=== PATIENT | male | born 1965 | race African-American/Black ===

== ENCOUNTER 2017-08-09 18:05 | Inpatient (IN) | payer OTHER ==
[2017-08-09 20:45] VITALS: BMI 34.4
--- NOTE | 2017-08-09 23:14 | HP ---
Admission [facility] Chief Complaint: i want to go to rehab Allergies/Adverse Reactions: Allergies Allergy/AdvReac Type Severity Reaction Status Date / Time influenza virus vaccine ts Allergy Intermediate Swelling Verified 11/26/15 13:05 [From Fluarix] pneumococcal vaccine Allergy Mild Swelling Verified 11/26/15 13:05 [Pneumococcal Vaccine] History of Present Illness: 52 years old male with long history of alcohol nicotine dependence has hypertension diabetes ii gerd hyperlipidemia and depression is admitted to rehab Exam Limitations: No Limitations - Ebola screening Have you traveled outside of the country in the last 21 days: No Have you had contact with anyone from an Ebola affected area: No Have you been sick,other than usual withdrawal symptoms: No Do you have a fever: No - Review of Systems Constitutional: Weight Stable EENT: reports: Other (dry eye) Respiratory: reports: Other (sleep apena dislike machine) Cardiac: reports: No Symptoms Reported GI: reports: Indigestion : reports: No Symptoms Reported Musculoskeletal: reports: Gout (elbows), Joint Pain (knees), Other (fingers) Integumentary: reports: Other (right 5th finger) Neuro: reports: No Symptoms reported Endocrine: reports: No Symptoms Reported Psychiatric: reports: Judgement Intact, Orientated x3, Depressed Other Systems: Reviewed and Negative Patient History - Patient Medical History Hx Anemia: No Hx Asthma: No Hx Chronic Obstructive Pulmonary Disease (COPD): No Hx Cancer: No Hx Cardiac Disorders: No Hx Congestive Heart Failure: No Hx Hypertension: Yes (non complaints with meds.) Hx Hypercholesterolemia: Yes Hx Pacemaker: No Hx Seizures: No Hx Dementia: No Hx Diabetes: Yes (Type II) Hx Gastrointestinal Disorders: Yes (Acid reflex) Hx Liver Disease: No Hx Genitourinary Disorders: No Hx Sexually Transmitted Disorders: No Hx Renal Disease (ESRD): No Hx Thyroid Disease: No Hx Human Immunodeficiency Virus (HIV): No Hx Hepatitis C: No Hx Depression: Yes Hx Suicide Attempt: No Hx Bipolar Disorder: No Hx Schizophrenia: No - Patient Surgical History Past Surgical History: No Hx Neurologic Surgery: No Hx Cataract Extraction: No Hx Cardiac Surgery: No Hx Lung Surgery: No Hx Breast Surgery: No Hx Breast Biopsy: No Hx Abdominal Surgery: No Hx Appendectomy: No Hx Cholecystectomy: No Hx Genitourinary Surgery: No Hx Orthopedic Surgery: No - PPD History Previous Implant?: Yes Documented Results: Negative w/o proof Implanted On Prior [facility] Admission?: Yes Date: 06/12/15 Results: 0 mm PPD to be Administered?: Yes - Smoking Cessation Smoking history: Current every day smoker Have you smoked in the past 12 months: No Aproximately how many cigarettes per day: 6 Cigars Per Day: 0 Hx Chewing Tobacco Use: No Initiated information on smoking cessation: Yes 'Breaking Loose' booklet given: 08/09/17 - Substance & Tx. History Hx Alcohol Use: Yes Hx Substance Use: No Substance Use Type: Alcohol Hx Substance Use Treatment: Yes (07/2017 [facility]) - Substances Abused Alcohol Route: Oral Frequency: Daily Amount used: vodka 1pint + 24oz beer x 24 Age of first use: 14 Date of Last Use: 08/04/17 Family Disease History - Family Disease History Family Disease History: Other: Father (alcohol,), Mother (), Brother (alcohol) Admission Physical Exam BHS - Vital Signs Vital Signs: Vital Signs - 24 hr 08/09/17 20:42 Temperature 98.1 F Pulse Rate 92 H Respiratory 18 Rate Blood Pressure 140/100 - Physical General Appearance: Yes: No Apparent Distress, Appropriately Dressed, Obese HEENTM: Yes: Hearing grossly Normal, Normal ENT Inspection, Normocephalic, Normal Voice Respiratory: Yes: Chest Non-Tender, Lungs Clear, Normal Breath Sounds, No Respiratory Distress, No Accessory Muscle Use Neck: Yes: Supple, Trachea in good position Breast: Yes: Breasts Symetrical Cardiology: Yes: Regular Rhythm, S1, S2, Tachycardia Abdominal: Yes: Normal Bowel Sounds, Non Tender, Soft Genitourinary: Yes: Within Normal Limits Back: Yes: Normal Inspection Musculoskeletal: Yes: full range of Motion, Gait Steady, Muscle Pain (knees) Extremities: Yes: Normal Range of Motion, Non-Tender, Swelling (knees fingers elbows) 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: Fully Oriented, Alert, Motor Strength 5/5 (move slowly), Normal Response, Depressed Affect Integumentary: Yes: Warm Lymphatic: Yes: Within Normal Limits - Diagnostic (1) Hyperlipidemia Current Visit: Yes Status: Chronic Qualifiers: Hyperlipidemia type: pure hypercholesterolemia Qualified Code(s): E78.00 - Pure hypercholesterolemia, unspecified; E78.0 - Pure hypercholesterolemia (2) Dry eyes, bilateral Current Visit: Yes Status: Chronic (3) Alcohol dependence with uncomplicated withdrawal Current Visit: Yes Status: Acute (4) DM (diabetes mellitus), type 2 Current Visit: Yes Status: Chronic Qualifiers: Diabetes mellitus complication status: without complication Diabetes mellitus senior care insulin use: without terminal gauger use Qualified Code(s): E11.9 - Type 2 diabetes mellitus without complications (5) Essential hypertension Current Visit: Yes Status: Chronic (6) GERD (gastroesophageal reflux disease) Current Visit: Yes Status: Chronic Qualifiers: Esophagitis presence: without esophagitis Qualified Code(s): K21.9 - Gastro -esophageal reflux disease without esophagitis (7) Gouty arthritis Current Visit: Yes Status: Chronic (8) Nicotine dependence Current Visit: Yes Status: Acute Qualifiers: Nicotine product type: cigarettes Substance use status: in withdrawal Qualified Code(s): F17.213 - Nicotine dependence, cigarettes, with withdrawal Cleared for Admission [facility] - Detox or Rehab [facility] Level of Care: Observation Bed Detox Regimen/Protocol: Not Applicable Claeared for Rehab Admission: Yes [facility] Breath Alcohol Content Breath Alcohol Content: 0 Urine Drug Screen - Results Drug Screen Negative: No Urine Drug Screen Results: BZO-Benzodiazepines Inpatient Rehab Admission - Initial Determination Are CD services needed?: Yes Free of communicable disease: Yes Not in need of hospitalization: Yes - Rehab Admission Criteria Previous failed treatment: Yes Poor recovery environment: Yes Comorbidities: Yes Lacks judgement: No Patient is meeting Inpatient Rehab admission criteria:: Yes
[2017-08-09] MEDS ORDERED: P-EPHED 60MG/TRIPROLIDI 2.5MG TABLET PO PRN (23:24)
[2017-08-09] MEDS ORDERED: guaiFENesin/D-METHORPHAN HB 10 ML UNIT-DOSE CUPS PO PRN (23:24)
[2017-08-09] MEDS ORDERED: LOPERAMIDE HCL 2 MG CAPSULE PO PRN (23:24)
[2017-08-09] MEDS ORDERED: MAG HYDROX/AL HYDROX/SIMETH 30 ML UNIT-DOSE CUP PO PRN (23:24)
[2017-08-09] MEDS ORDERED: NICOTINE POLACRILEX 2 MG GUM BC PRN (23:24)
[2017-08-09] MEDS ORDERED: MAGNESIUM HYDROX 2400MG/30ML ORAL SUSPENSION 30 ML CUP PO PRN (23:24)
[2017-08-09] MEDS ORDERED: MAGNESIUM CITRATE 300 ML BOTTLE PO PRN (23:24)
[2017-08-09] MEDS ORDERED: MENTHOL/PHENOL 1 EACH UD MM PRN (23:24)
[2017-08-09] MEDS ORDERED: COLLOIDAL OATMEAL 1 BAR EACH TP PRN (23:31)
[2017-08-10] MEDS ORDERED: diphenhydrAMINE HCL 25 MG CAPSULE (FP) PO ONE (01:30)
[2017-08-10] MEDS: NAPROXEN 500 MG TABLET (FP) PO PRN ×2 (01:38→10:07)
[2017-08-10 02:54] LABS: URINE APPEARANCE CLEAR; URINE BILIRUBIN NEGATIVE (NEGATIVE); URINE BLOOD NEGATIVE (NEGATIVE); URINE COLOR LTYELLOW; URINE GLUCOSE (UA) NEGATIVE (NEGATIVE); URINE KETONE NEGATIVE (NEGATIVE); URINE NITRITE NEGATIVE (NEGATIVE); URINE PROTEIN NEGATIVE (NEGATIVE); URINE UROBILINOGEN NEGATIVE mg/dL (0.2-1.0)
[2017-08-10] MEDS: ACETAMINOPHEN 325 MG TABLET (FP) PO PRN ×3 (06:15→21:45)
[2017-08-10] MEDS: INSULIN SLIDING SCALE (NOVOLOG) 1 VIAL SQ SCH ×2 (07:10→16:30)
[2017-08-10] MEDS: metFORMIN HCL 500 MG TABLET (FP) PO SCH ×2 (07:10→16:59)
--- NOTE | 2017-08-10 09:19 | HP ---
Psychiatrist Admission - Data Date of interview: 08/10/17 Admission source: [facility] Identifying data: This is one of the multiple admissions to inpatient rehabilitation for this 52 years old single AA male resides alone,supported by [facility]. Medical History: Significant for HTN,Morbid obesity,Anemia. Psychiatric History: Patient reports first contact with psychiatrist since 1986 after admission to psychiatric unit in [facility] due to depressed mood, anxiety.Denies suicidal attempts.Reports 3-4 more psychiatric admissions..Currently he obtains his psychotropic medications from his PCP: Zoloft 150 mg po daily,Seroquel 300 mg po hs. Physical/Sexual Abuse/Trauma History: denies Vital Signs: Vital Signs - 24 hr 08/09/17 08/10/17 08/10/17 20:42 00:30 03:30 Temperature 98.1 F 98.4 F Pulse Rate 92 H 95 H Respiratory 18 20 20 Rate Blood Pressure 140/100 147/86 08/10/17 06:51 Temperature 97.9 F Pulse Rate 84 Respiratory 20 Rate Blood Pressure 145/88 Allergies/Adverse Reactions: Allergies Allergy/AdvReac Type Severity Reaction Status Date / Time influenza virus vaccine ts Allergy Intermediate Swelling Verified 11/26/15 13:05 2012- [From Fluarix] pneumococcal vaccine Allergy Mild Swelling Verified 11/26/15 13:05 [Pneumococcal Vaccine] Date of last physical exam: 09/08/17 Concur with the findings of this exam: Yes - Substance Abuse/Tx History Hx Alcohol Use: Yes (reports drinking since 14 yo ,2 pints of vodka daily) Hx Substance Use: No Substance Use Type: Alcohol Hx Substance Use Treatment: Yes (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) Mental Status Exam - Mental Status Exam Alert and Oriented to: Time, Place, Person Cognitive Function: Grossly Intact Patient Appearance: Unkempt Mood: Anxious Affect: Appropriate, Mood Congruent Patient Behavior: Appropriate, Cooperative Speech Pattern: Clear Voice Loudness: Normal Thought Process: Goal Oriented Thought Disorder: Not Present Hallucinations: Denies Suicidal Ideation: Denies Homicidal Ideation: Denies Insight/Judgement: Fair Sleep: Fair Appetite: Good Muscle strength/Tone: Normal Gait/Station: Normal Psychiatric Findings - Problem List ([place] 1, 2,3) (1) Nicotine dependence Current Visit: Yes Status: Chronic Qualifiers: Nicotine product type: cigarettes Substance use status: in withdrawal Qualified Code(s): F17.213 - Nicotine dependence, cigarettes, with withdrawal (2) DM (diabetes mellitus), type 2 Current Visit: Yes Status: Chronic Qualifiers: Diabetes mellitus complication status: without complication Diabetes mellitus 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 insulin use: without fdc use Qualified Code(s): E11.9 - Type 2 diabetes mellitus without complications (3) Essential hypertension Current Visit: Yes Status: Chronic (4) GERD (gastroesophageal reflux disease) Current Visit: Yes Status: Chronic Qualifiers: Esophagitis presence: without esophagitis Qualified Code(s): K21.9 - Gastro -esophageal reflux disease without esophagitis (5) Gouty arthritis Current Visit: Yes Status: Chronic (6) Hyperlipidemia Current Visit: Yes Status: Chronic Qualifiers: Hyperlipidemia type: pure hypercholesterolemia Qualified Code(s): E78.00 - Pure hypercholesterolemia, unspecified; E78.0 - Pure hypercholesterolemia (7) Alcohol dependence Current Visit: Yes Status: Acute (8) Drug-induced mood disorder Current Visit: Yes Status: Chronic - Initial Treatment Plan Initial Treatment Plan: Continue current medications as per plan.Will monitor progress.
[2017-08-10] MEDS: ARTIFICIAL TEARS (POLYVINYL ALCOHOL 1.4%) OPTH DROPS OU SCH ×4 (10:02→21:47)
[2017-08-10] MEDS: PRENATAL VITAMINS W/ FOLIC ACID TABLET (FP) PO SCH (10:03)
[2017-08-10] MEDS: METOPROLOL SUCCINATE 100 MG TAB.SR.24H (FP) PO SCH (10:03)
[2017-08-10] MEDS: COLCHICINE 0.6 MG TABLET (FP) PO SCH ×2 (10:03→21:47)
[2017-08-10] MEDS: ASPIRIN 325 MG TABLET PO SCH (10:03)
[2017-08-10] MEDS: RANITIDINE HCL 150 MG TABLET (FP) PO SCH ×2 (10:03→21:44)
[2017-08-10] MEDS: NICOTINE 14 MG/24 HOURS TOPICAL PATCH TD SCH (10:04)
[2017-08-10] MEDS: LISINOPRIL 5 MG TABLET (FP) PO SCH (10:04)
--- NOTE | 2017-08-10 10:08 | EKG ---
Test Reason : Blood Pressure : / mmHG Vent. Rate : 079 BPM Atrial Rate : 079 BPM P-R Int : 176 ms QRS Dur : 074 ms QT Int : 400 ms P-R-T Axes : 045 015 016 degrees QTc Int : 458 ms NORMAL SINUS RHYTHM MINIMAL VOLTAGE CRITERIA FOR LVH, MAY BE NORMAL VARIANT NONSPECIFIC T WAVE ABNORMALITY ABNORMAL ECG NO PREVIOUS ECGS AVAILABLE Confirmed by MALLORY CARPENTER MD ([id number]) on 08/10/2017 10:08:18 AM Referred By: Confirmed By:MALLORY CARPENTER MD
[2017-08-10 10:19] LABS: URINE LEUK ESTERASE Negative (NEGATIVE)
[2017-08-10] MEDS: SERTRALINE HCL 50 MG TABLET (FP) PO SCH (10:32)
[2017-08-10] MEDS: hydrOXYzine PAMOATE 50 MG CAPSULE (FP) PO PRN ×2 (10:33→21:46)
[2017-08-10 13:23] LABS: MCH 29.7 pg (25.7-33.7); MCHC 32.3 g/dl (32.0-35.9); MEAN CELL VOLUME 91.9 fl (80-96); MEAN PLT VOLUME 11.4 fl (7.5-11.1); PLATELET COUNT 131 K/MM3 (134-434); RDW 15.7 % (11.9-15.9)
[2017-08-10 13:38] LABS: ALBUMIN 3.9 g/dl (3.4-5.0); ANION GAP 6 (8-16); CALCIUM 9.3 mg/dL (8.5-10.1); CO2 29 mmol/L (21-32); GLUCOSE,RANDOM 104 mg/dL (74-106)
[2017-08-10 13:41] LABS: ALK PHOS 68 U/L (45-117); BILIRUBIN,TOTAL 0.4 mg/dL (0.2-1.0); CREATININE 1.2 mg/dL (0.7-1.3); SGOT/AST 27 U/L (15-37); SGPT/ALT 34 U/L (12-78); TOT PROT 7.3 g/dl (6.4-8.2)
[2017-08-10] MEDS: QUEtiapine FUMARATE 300 MG TABLET PO SCH (21:44)
[2017-08-10] MEDS: THIAMINE HCL 100 MG TABLET (FP) PO SCH (21:44)
[2017-08-10] MEDS: ATORVASTATIN CA 20 MG TABLET (FP) PO SCH (21:44)
[2017-08-10] MEDS: MINERAL OIL/PETROLAT/WATER TOPICAL CREAM 113 GM JAR TP SCH (21:47)
[2017-08-11] MEDS: metFORMIN HCL 500 MG TABLET (FP) PO SCH ×2 (06:44→16:18)
[2017-08-11] MEDS: ACETAMINOPHEN 325 MG TABLET (FP) PO PRN ×3 (06:45→22:03)
[2017-08-11] MEDS: hydrOXYzine PAMOATE 50 MG CAPSULE (FP) PO PRN (06:45)
[2017-08-11] MEDS: INSULIN SLIDING SCALE (NOVOLOG) 1 VIAL SQ SCH ×2 (08:06→16:32)
[2017-08-11] MEDS: NICOTINE 14 MG/24 HOURS TOPICAL PATCH TD SCH (09:30)
[2017-08-11] MEDS: ARTIFICIAL TEARS (POLYVINYL ALCOHOL 1.4%) OPTH DROPS OU SCH ×4 (09:30→22:05)
[2017-08-11] MEDS: PRENATAL VITAMINS W/ FOLIC ACID TABLET (FP) PO SCH (09:31)
[2017-08-11] MEDS: LISINOPRIL 5 MG TABLET (FP) PO SCH (09:31)
[2017-08-11] MEDS: SERTRALINE HCL 50 MG TABLET (FP) PO SCH (09:31)
[2017-08-11] MEDS: COLCHICINE 0.6 MG TABLET (FP) PO SCH ×2 (09:31→22:02)
[2017-08-11] MEDS: METOPROLOL SUCCINATE 100 MG TAB.SR.24H (FP) PO SCH (09:32)
[2017-08-11] MEDS: RANITIDINE HCL 150 MG TABLET (FP) PO SCH ×2 (09:32→22:05)
[2017-08-11] MEDS: NAPROXEN 500 MG TABLET (FP) PO PRN (09:33)
[2017-08-11] MEDS: ASPIRIN 325 MG TABLET PO SCH (10:55)
[2017-08-11] MEDS: THIAMINE HCL 100 MG TABLET (FP) PO SCH (22:01)
[2017-08-11] MEDS: ATORVASTATIN CA 20 MG TABLET (FP) PO SCH (22:02)
[2017-08-11] MEDS: QUEtiapine FUMARATE 300 MG TABLET PO SCH (22:02)
[2017-08-11] MEDS: MINERAL OIL/PETROLAT/WATER TOPICAL CREAM 113 GM JAR TP SCH (22:05)
[2017-08-12] MEDS: metFORMIN HCL 500 MG TABLET (FP) PO SCH ×2 (06:40→16:30)
[2017-08-12] MEDS: ACETAMINOPHEN 325 MG TABLET (FP) PO PRN ×2 (06:41→21:37)
[2017-08-12] MEDS: hydrOXYzine PAMOATE 50 MG CAPSULE (FP) PO PRN ×2 (06:41→21:37)
[2017-08-12] MEDS: INSULIN SLIDING SCALE (NOVOLOG) 1 VIAL SQ SCH ×2 (06:43→16:31)
[2017-08-12] MEDS: ASPIRIN 325 MG TABLET PO SCH (09:47)
[2017-08-12] MEDS: NICOTINE 14 MG/24 HOURS TOPICAL PATCH TD SCH (09:47)
[2017-08-12] MEDS: ARTIFICIAL TEARS (POLYVINYL ALCOHOL 1.4%) OPTH DROPS OU SCH ×4 (09:47→22:26)
[2017-08-12] MEDS: SERTRALINE HCL 50 MG TABLET (FP) PO SCH (09:48)
[2017-08-12] MEDS: RANITIDINE HCL 150 MG TABLET (FP) PO SCH ×2 (09:48→21:36)
[2017-08-12] MEDS: LISINOPRIL 5 MG TABLET (FP) PO SCH (09:48)
[2017-08-12] MEDS: COLCHICINE 0.6 MG TABLET (FP) PO SCH ×2 (09:48→21:37)
[2017-08-12] MEDS: PRENATAL VITAMINS W/ FOLIC ACID TABLET (FP) PO SCH (09:48)
[2017-08-12] MEDS: METOPROLOL SUCCINATE 100 MG TAB.SR.24H (FP) PO SCH (09:48)
[2017-08-12] MEDS: NAPROXEN 500 MG TABLET (FP) PO PRN (09:49)
[2017-08-12] MEDS: THIAMINE HCL 100 MG TABLET (FP) PO SCH (21:36)
[2017-08-12] MEDS: ATORVASTATIN CA 20 MG TABLET (FP) PO SCH (21:36)
[2017-08-12] MEDS: QUEtiapine FUMARATE 300 MG TABLET PO SCH (21:36)
[2017-08-12] MEDS: MINERAL OIL/PETROLAT/WATER TOPICAL CREAM 113 GM JAR TP SCH (22:26)
[2017-08-13] MEDS: ACETAMINOPHEN 325 MG TABLET (FP) PO PRN ×2 (06:20→14:40)
[2017-08-13] MEDS: hydrOXYzine PAMOATE 50 MG CAPSULE (FP) PO PRN ×3 (06:21→22:00)
[2017-08-13] MEDS: metFORMIN HCL 500 MG TABLET (FP) PO SCH ×2 (07:06→17:13)
[2017-08-13] MEDS: INSULIN SLIDING SCALE (NOVOLOG) 1 VIAL SQ SCH ×2 (07:07→17:13)
[2017-08-13] MEDS: PRENATAL VITAMINS W/ FOLIC ACID TABLET (FP) PO SCH (09:44)
[2017-08-13] MEDS: ARTIFICIAL TEARS (POLYVINYL ALCOHOL 1.4%) OPTH DROPS OU SCH ×4 (09:44→21:59)
[2017-08-13] MEDS: METOPROLOL SUCCINATE 100 MG TAB.SR.24H (FP) PO SCH (09:45)
[2017-08-13] MEDS: RANITIDINE HCL 150 MG TABLET (FP) PO SCH ×2 (09:45→21:59)
[2017-08-13] MEDS: ASPIRIN 325 MG TABLET PO SCH (09:45)
[2017-08-13] MEDS: COLCHICINE 0.6 MG TABLET (FP) PO SCH ×2 (09:45→21:59)
[2017-08-13] MEDS: NICOTINE 14 MG/24 HOURS TOPICAL PATCH TD SCH (09:45)
[2017-08-13] MEDS: LISINOPRIL 5 MG TABLET (FP) PO SCH (09:45)
[2017-08-13] MEDS: SERTRALINE HCL 50 MG TABLET (FP) PO SCH (09:46)
[2017-08-13] MEDS: NAPROXEN 500 MG TABLET (FP) PO PRN ×2 (09:47→21:59)
[2017-08-13] MEDS: THIAMINE HCL 100 MG TABLET (FP) PO SCH (21:59)
[2017-08-13] MEDS: ATORVASTATIN CA 20 MG TABLET (FP) PO SCH (21:59)
[2017-08-13] MEDS: MINERAL OIL/PETROLAT/WATER TOPICAL CREAM 113 GM JAR TP SCH (22:02)
[2017-08-13] MEDS: QUEtiapine FUMARATE 300 MG TABLET PO SCH (22:03)
[2017-08-14] MEDS: metFORMIN HCL 500 MG TABLET (FP) PO SCH ×2 (07:07→16:52)
[2017-08-14] MEDS: INSULIN SLIDING SCALE (NOVOLOG) 1 VIAL SQ SCH ×2 (07:07→16:53)
[2017-08-14] MEDS: NICOTINE 14 MG/24 HOURS TOPICAL PATCH TD SCH (09:51)
[2017-08-14] MEDS: COLCHICINE 0.6 MG TABLET (FP) PO SCH ×2 (09:51→21:26)
[2017-08-14] MEDS: METOPROLOL SUCCINATE 100 MG TAB.SR.24H (FP) PO SCH (09:51)
[2017-08-14] MEDS: SERTRALINE HCL 50 MG TABLET (FP) PO SCH (09:51)
[2017-08-14] MEDS: PRENATAL VITAMINS W/ FOLIC ACID TABLET (FP) PO SCH (09:51)
[2017-08-14] MEDS: RANITIDINE HCL 150 MG TABLET (FP) PO SCH ×2 (09:51→21:23)
[2017-08-14] MEDS: ASPIRIN 325 MG TABLET PO SCH (09:51)
[2017-08-14] MEDS: LISINOPRIL 5 MG TABLET (FP) PO SCH (09:52)
[2017-08-14] MEDS: hydrOXYzine PAMOATE 50 MG CAPSULE (FP) PO PRN ×2 (09:53→21:25)
[2017-08-14] MEDS: ACETAMINOPHEN 325 MG TABLET (FP) PO PRN ×2 (09:53→21:25)
[2017-08-14] MEDS: ARTIFICIAL TEARS (POLYVINYL ALCOHOL 1.4%) OPTH DROPS OU SCH ×4 (10:35→21:26)
[2017-08-14] MEDS: THIAMINE HCL 100 MG TABLET (FP) PO SCH (21:23)
[2017-08-14] MEDS: QUEtiapine FUMARATE 300 MG TABLET PO SCH (21:24)
[2017-08-14] MEDS: ATORVASTATIN CA 20 MG TABLET (FP) PO SCH (21:24)
[2017-08-14] MEDS: MINERAL OIL/PETROLAT/WATER TOPICAL CREAM 113 GM JAR TP SCH (21:26)
[2017-08-15] MEDS: metFORMIN HCL 500 MG TABLET (FP) PO SCH ×2 (07:08→16:54)
[2017-08-15] MEDS: INSULIN SLIDING SCALE (NOVOLOG) 1 VIAL SQ SCH ×2 (07:09→16:55)
[2017-08-15] MEDS: COLCHICINE 0.6 MG TABLET (FP) PO SCH ×2 (09:58→21:22)
[2017-08-15] MEDS: NICOTINE 14 MG/24 HOURS TOPICAL PATCH TD SCH (09:58)
[2017-08-15] MEDS: ASPIRIN 325 MG TABLET PO SCH (09:58)
[2017-08-15] MEDS: SERTRALINE HCL 50 MG TABLET (FP) PO SCH (09:58)
[2017-08-15] MEDS: ARTIFICIAL TEARS (POLYVINYL ALCOHOL 1.4%) OPTH DROPS OU SCH ×4 (09:58→23:59)
[2017-08-15] MEDS: RANITIDINE HCL 150 MG TABLET (FP) PO SCH ×2 (09:58→21:22)
[2017-08-15] MEDS: PRENATAL VITAMINS W/ FOLIC ACID TABLET (FP) PO SCH (09:58)
[2017-08-15] MEDS: METOPROLOL SUCCINATE 100 MG TAB.SR.24H (FP) PO SCH (09:58)
[2017-08-15] MEDS: LISINOPRIL 5 MG TABLET (FP) PO SCH (09:58)
[2017-08-15] MEDS: hydrOXYzine PAMOATE 50 MG CAPSULE (FP) PO PRN ×2 (09:59→21:23)
[2017-08-15] MEDS: ACETAMINOPHEN 325 MG TABLET (FP) PO PRN (21:21)
[2017-08-15] MEDS: ATORVASTATIN CA 20 MG TABLET (FP) PO SCH (21:23)
[2017-08-15] MEDS: THIAMINE HCL 100 MG TABLET (FP) PO SCH (21:23)
[2017-08-15] MEDS: QUEtiapine FUMARATE 300 MG TABLET PO SCH (21:23)
[2017-08-15] MEDS: MINERAL OIL/PETROLAT/WATER TOPICAL CREAM 113 GM JAR TP SCH (23:59)
[2017-08-16] MEDS: metFORMIN HCL 500 MG TABLET (FP) PO SCH ×2 (06:43→16:59)
[2017-08-16] MEDS: INSULIN SLIDING SCALE (NOVOLOG) 1 VIAL SQ SCH ×2 (07:05→17:04)
[2017-08-16] MEDS: ASPIRIN 325 MG TABLET PO SCH (09:50)
[2017-08-16] MEDS: PRENATAL VITAMINS W/ FOLIC ACID TABLET (FP) PO SCH (09:50)
[2017-08-16] MEDS: COLCHICINE 0.6 MG TABLET (FP) PO SCH ×2 (09:50→22:31)
[2017-08-16] MEDS: SERTRALINE HCL 50 MG TABLET (FP) PO SCH (09:50)
[2017-08-16] MEDS: RANITIDINE HCL 150 MG TABLET (FP) PO SCH ×2 (09:51→22:31)
[2017-08-16] MEDS: LISINOPRIL 5 MG TABLET (FP) PO SCH (09:51)
[2017-08-16] MEDS: ARTIFICIAL TEARS (POLYVINYL ALCOHOL 1.4%) OPTH DROPS OU SCH ×4 (09:51→22:32)
[2017-08-16] MEDS: METOPROLOL SUCCINATE 100 MG TAB.SR.24H (FP) PO SCH (09:51)
[2017-08-16] MEDS: NICOTINE 14 MG/24 HOURS TOPICAL PATCH TD SCH (09:51)
[2017-08-16] MEDS: LIDOCAINE 5% TOPICAL PATCH TP SCH (14:40)
[2017-08-16] MEDS: ACETAMINOPHEN 325 MG TABLET (FP) PO PRN ×2 (17:01→22:33)
[2017-08-16] MEDS: hydrOXYzine PAMOATE 50 MG CAPSULE (FP) PO PRN (17:01)
[2017-08-16] MEDS: ATORVASTATIN CA 20 MG TABLET (FP) PO SCH (22:31)
[2017-08-16] MEDS: THIAMINE HCL 100 MG TABLET (FP) PO SCH (22:31)
[2017-08-16] MEDS: MINERAL OIL/PETROLAT/WATER TOPICAL CREAM 113 GM JAR TP SCH (22:32)
[2017-08-16] MEDS: LIDOCAINE PATCH REMOVAL MC SCH (22:32)
[2017-08-16] MEDS: QUEtiapine FUMARATE 300 MG TABLET PO SCH (22:32)
[2017-08-17] MEDS: INSULIN SLIDING SCALE (NOVOLOG) 1 VIAL SQ SCH ×2 (07:06→16:57)
[2017-08-17] MEDS: metFORMIN HCL 500 MG TABLET (FP) PO SCH ×2 (07:06→16:57)
[2017-08-17] MEDS: ASPIRIN 325 MG TABLET PO SCH (10:04)
[2017-08-17] MEDS: SERTRALINE HCL 50 MG TABLET (FP) PO SCH (10:04)
[2017-08-17] MEDS: COLCHICINE 0.6 MG TABLET (FP) PO SCH ×2 (10:04→21:22)
[2017-08-17] MEDS: PRENATAL VITAMINS W/ FOLIC ACID TABLET (FP) PO SCH (10:04)
[2017-08-17] MEDS: METOPROLOL SUCCINATE 100 MG TAB.SR.24H (FP) PO SCH (10:04)
[2017-08-17] MEDS: RANITIDINE HCL 150 MG TABLET (FP) PO SCH ×2 (10:04→21:21)
[2017-08-17] MEDS: hydrOXYzine PAMOATE 50 MG CAPSULE (FP) PO PRN ×2 (10:06→21:24)
[2017-08-17] MEDS: NAPROXEN 500 MG TABLET (FP) PO PRN (10:06)
[2017-08-17] MEDS: ARTIFICIAL TEARS (POLYVINYL ALCOHOL 1.4%) OPTH DROPS OU SCH ×4 (10:06→21:21)
[2017-08-17] MEDS: LIDOCAINE 5% TOPICAL PATCH TP SCH (10:08)
[2017-08-17] MEDS: NICOTINE 14 MG/24 HOURS TOPICAL PATCH TD SCH (10:08)
[2017-08-17] MEDS: LISINOPRIL 5 MG TABLET (FP) PO SCH (10:11)
[2017-08-17] MEDS: THIAMINE HCL 100 MG TABLET (FP) PO SCH (21:21)
[2017-08-17] MEDS: QUEtiapine FUMARATE 300 MG TABLET PO SCH (21:21)
[2017-08-17] MEDS: ATORVASTATIN CA 20 MG TABLET (FP) PO SCH (21:21)
[2017-08-17] MEDS: ACETAMINOPHEN 325 MG TABLET (FP) PO PRN (21:23)
[2017-08-17] MEDS: MINERAL OIL/PETROLAT/WATER TOPICAL CREAM 113 GM JAR TP SCH (21:24)
[2017-08-17] MEDS: LIDOCAINE PATCH REMOVAL MC SCH (21:24)
[2017-08-18] MEDS: metFORMIN HCL 500 MG TABLET (FP) PO SCH ×2 (07:14→16:51)
[2017-08-18] MEDS: INSULIN SLIDING SCALE (NOVOLOG) 1 VIAL SQ SCH ×2 (07:14→16:52)
[2017-08-18] MEDS: ARTIFICIAL TEARS (POLYVINYL ALCOHOL 1.4%) OPTH DROPS OU SCH ×4 (09:52→21:31)
[2017-08-18] MEDS: SERTRALINE HCL 50 MG TABLET (FP) PO SCH (09:52)
[2017-08-18] MEDS: COLCHICINE 0.6 MG TABLET (FP) PO SCH ×2 (09:52→21:31)
[2017-08-18] MEDS: RANITIDINE HCL 150 MG TABLET (FP) PO SCH ×2 (09:52→21:31)
[2017-08-18] MEDS: ASPIRIN 325 MG TABLET PO SCH (09:52)
[2017-08-18] MEDS: PRENATAL VITAMINS W/ FOLIC ACID TABLET (FP) PO SCH (09:52)
[2017-08-18] MEDS: LISINOPRIL 5 MG TABLET (FP) PO SCH (09:53)
[2017-08-18] MEDS: METOPROLOL SUCCINATE 100 MG TAB.SR.24H (FP) PO SCH (09:53)
[2017-08-18] MEDS: LIDOCAINE 5% TOPICAL PATCH TP SCH (09:54)
[2017-08-18] MEDS: NICOTINE 14 MG/24 HOURS TOPICAL PATCH TD SCH (09:56)
[2017-08-18] MEDS: LIDOCAINE PATCH REMOVAL MC SCH (21:31)
[2017-08-18] MEDS: ATORVASTATIN CA 20 MG TABLET (FP) PO SCH (21:31)
[2017-08-18] MEDS: THIAMINE HCL 100 MG TABLET (FP) PO SCH (21:31)
[2017-08-18] MEDS: QUEtiapine FUMARATE 300 MG TABLET PO SCH (21:31)
[2017-08-18] MEDS: MINERAL OIL/PETROLAT/WATER TOPICAL CREAM 113 GM JAR TP SCH (21:33)
[2017-08-18] MEDS: ACETAMINOPHEN 325 MG TABLET (FP) PO PRN (21:33)
[2017-08-19] MEDS: INSULIN SLIDING SCALE (NOVOLOG) 1 VIAL SQ SCH ×2 (07:10→16:51)
[2017-08-19] MEDS: metFORMIN HCL 500 MG TABLET (FP) PO SCH ×2 (07:10→16:50)
[2017-08-19] MEDS: LIDOCAINE 5% TOPICAL PATCH TP SCH (10:03)
[2017-08-19] MEDS: NICOTINE 14 MG/24 HOURS TOPICAL PATCH TD SCH (10:03)
[2017-08-19] MEDS: ASPIRIN 325 MG TABLET PO SCH (10:04)
[2017-08-19] MEDS: SERTRALINE HCL 50 MG TABLET (FP) PO SCH (10:04)
[2017-08-19] MEDS: PRENATAL VITAMINS W/ FOLIC ACID TABLET (FP) PO SCH (10:04)
[2017-08-19] MEDS: METOPROLOL SUCCINATE 100 MG TAB.SR.24H (FP) PO SCH (10:05)
[2017-08-19] MEDS: COLCHICINE 0.6 MG TABLET (FP) PO SCH ×2 (10:05→21:20)
[2017-08-19] MEDS: RANITIDINE HCL 150 MG TABLET (FP) PO SCH ×2 (10:05→21:21)
[2017-08-19] MEDS: ARTIFICIAL TEARS (POLYVINYL ALCOHOL 1.4%) OPTH DROPS OU SCH ×4 (10:05→21:20)
[2017-08-19] MEDS: hydrOXYzine PAMOATE 50 MG CAPSULE (FP) PO PRN ×2 (10:07→21:22)
[2017-08-19] MEDS: NAPROXEN 500 MG TABLET (FP) PO PRN ×2 (10:07→21:22)
[2017-08-19] MEDS: LISINOPRIL 5 MG TABLET (FP) PO SCH (10:08)
[2017-08-19] MEDS: ATORVASTATIN CA 20 MG TABLET (FP) PO SCH (21:20)
[2017-08-19] MEDS: THIAMINE HCL 100 MG TABLET (FP) PO SCH (21:21)
[2017-08-19] MEDS: MINERAL OIL/PETROLAT/WATER TOPICAL CREAM 113 GM JAR TP SCH (21:21)
[2017-08-19] MEDS: QUEtiapine FUMARATE 300 MG TABLET PO SCH (21:21)
[2017-08-19] MEDS: LIDOCAINE PATCH REMOVAL MC SCH (21:21)
[2017-08-20] MEDS: metFORMIN HCL 500 MG TABLET (FP) PO SCH ×2 (07:00→16:49)
[2017-08-20] MEDS: INSULIN SLIDING SCALE (NOVOLOG) 1 VIAL SQ SCH ×2 (07:01→16:49)
[2017-08-20] MEDS: ARTIFICIAL TEARS (POLYVINYL ALCOHOL 1.4%) OPTH DROPS OU SCH ×4 (09:56→21:15)
[2017-08-20] MEDS: PRENATAL VITAMINS W/ FOLIC ACID TABLET (FP) PO SCH (09:56)
[2017-08-20] MEDS: COLCHICINE 0.6 MG TABLET (FP) PO SCH ×2 (09:56→21:15)
[2017-08-20] MEDS: LIDOCAINE 5% TOPICAL PATCH TP SCH (09:57)
[2017-08-20] MEDS: METOPROLOL SUCCINATE 100 MG TAB.SR.24H (FP) PO SCH (09:57)
[2017-08-20] MEDS: RANITIDINE HCL 150 MG TABLET (FP) PO SCH ×2 (09:57→21:15)
[2017-08-20] MEDS: ASPIRIN 325 MG TABLET PO SCH (09:57)
[2017-08-20] MEDS: SERTRALINE HCL 50 MG TABLET (FP) PO SCH (09:57)
[2017-08-20] MEDS: NICOTINE 14 MG/24 HOURS TOPICAL PATCH TD SCH (09:57)
[2017-08-20] MEDS: LISINOPRIL 5 MG TABLET (FP) PO SCH (09:57)
[2017-08-20] MEDS: NAPROXEN 500 MG TABLET (FP) PO PRN (10:00)
[2017-08-20] MEDS: ATORVASTATIN CA 20 MG TABLET (FP) PO SCH (21:15)
[2017-08-20] MEDS: ACETAMINOPHEN 325 MG TABLET (FP) PO PRN (21:15)
[2017-08-20] MEDS: THIAMINE HCL 100 MG TABLET (FP) PO SCH (21:15)
[2017-08-20] MEDS: hydrOXYzine PAMOATE 50 MG CAPSULE (FP) PO PRN (21:16)
[2017-08-20] MEDS: QUEtiapine FUMARATE 300 MG TABLET PO SCH (21:16)
[2017-08-20] MEDS: MINERAL OIL/PETROLAT/WATER TOPICAL CREAM 113 GM JAR TP SCH (22:35)
[2017-08-20] MEDS: LIDOCAINE PATCH REMOVAL MC SCH (22:35)
[2017-08-21] MEDS: metFORMIN HCL 500 MG TABLET (FP) PO SCH ×2 (07:09→16:49)
[2017-08-21] MEDS: INSULIN SLIDING SCALE (NOVOLOG) 1 VIAL SQ SCH ×2 (07:09→16:50)
[2017-08-21] MEDS: ARTIFICIAL TEARS (POLYVINYL ALCOHOL 1.4%) OPTH DROPS OU SCH ×4 (09:50→22:01)
[2017-08-21] MEDS: PRENATAL VITAMINS W/ FOLIC ACID TABLET (FP) PO SCH (09:50)
[2017-08-21] MEDS: COLCHICINE 0.6 MG TABLET (FP) PO SCH ×2 (09:50→21:53)
[2017-08-21] MEDS: ASPIRIN 325 MG TABLET PO SCH (09:51)
[2017-08-21] MEDS: SERTRALINE HCL 50 MG TABLET (FP) PO SCH (09:51)
[2017-08-21] MEDS: METOPROLOL SUCCINATE 100 MG TAB.SR.24H (FP) PO SCH (09:51)
[2017-08-21] MEDS: LISINOPRIL 5 MG TABLET (FP) PO SCH (09:51)
[2017-08-21] MEDS: RANITIDINE HCL 150 MG TABLET (FP) PO SCH ×2 (09:51→21:53)
[2017-08-21] MEDS: LIDOCAINE 5% TOPICAL PATCH TP SCH (09:52)
[2017-08-21] MEDS: NICOTINE 14 MG/24 HOURS TOPICAL PATCH TD SCH (09:52)
[2017-08-21] MEDS: ACETAMINOPHEN 325 MG TABLET (FP) PO PRN (21:52)
[2017-08-21] MEDS: hydrOXYzine PAMOATE 50 MG CAPSULE (FP) PO PRN (21:52)
[2017-08-21] MEDS: THIAMINE HCL 100 MG TABLET (FP) PO SCH (21:53)
[2017-08-21] MEDS: ATORVASTATIN CA 20 MG TABLET (FP) PO SCH (21:53)
[2017-08-21] MEDS: QUEtiapine FUMARATE 300 MG TABLET PO SCH (21:54)
[2017-08-21] MEDS: LIDOCAINE PATCH REMOVAL MC SCH (21:55)
[2017-08-21] MEDS: MINERAL OIL/PETROLAT/WATER TOPICAL CREAM 113 GM JAR TP SCH (21:55)
[2017-08-22] MEDS: INSULIN SLIDING SCALE (NOVOLOG) 1 VIAL SQ SCH ×2 (07:29→16:35)
[2017-08-22] MEDS: metFORMIN HCL 500 MG TABLET (FP) PO SCH ×2 (07:29→16:35)
[2017-08-22] MEDS: PRENATAL VITAMINS W/ FOLIC ACID TABLET (FP) PO SCH (10:00)
[2017-08-22] MEDS: NICOTINE 14 MG/24 HOURS TOPICAL PATCH TD SCH (10:00)
[2017-08-22] MEDS: RANITIDINE HCL 150 MG TABLET (FP) PO SCH ×2 (10:00→21:56)
[2017-08-22] MEDS: COLCHICINE 0.6 MG TABLET (FP) PO SCH ×2 (10:00→21:55)
[2017-08-22] MEDS: ASPIRIN 325 MG TABLET PO SCH (10:00)
[2017-08-22] MEDS: SERTRALINE HCL 50 MG TABLET (FP) PO SCH (10:00)
[2017-08-22] MEDS: METOPROLOL SUCCINATE 100 MG TAB.SR.24H (FP) PO SCH (10:00)
[2017-08-22] MEDS: ARTIFICIAL TEARS (POLYVINYL ALCOHOL 1.4%) OPTH DROPS OU SCH ×4 (10:01→21:55)
[2017-08-22] MEDS: LIDOCAINE 5% TOPICAL PATCH TP SCH (10:01)
[2017-08-22] MEDS: LISINOPRIL 5 MG TABLET (FP) PO SCH (10:01)
[2017-08-22] MEDS: NAPROXEN 500 MG TABLET (FP) PO PRN (21:55)
[2017-08-22] MEDS: ATORVASTATIN CA 20 MG TABLET (FP) PO SCH (21:56)
[2017-08-22] MEDS: LIDOCAINE PATCH REMOVAL MC SCH (21:56)
[2017-08-22] MEDS: QUEtiapine FUMARATE 300 MG TABLET PO SCH (21:56)
[2017-08-22] MEDS: THIAMINE HCL 100 MG TABLET (FP) PO SCH (21:56)
[2017-08-22] MEDS: MINERAL OIL/PETROLAT/WATER TOPICAL CREAM 113 GM JAR TP SCH (21:57)
[2017-08-23] MEDS: metFORMIN HCL 500 MG TABLET (FP) PO SCH ×2 (07:12→18:03)
[2017-08-23] MEDS: INSULIN SLIDING SCALE (NOVOLOG) 1 VIAL SQ SCH ×2 (07:12→16:49)
[2017-08-23] MEDS: LISINOPRIL 5 MG TABLET (FP) PO SCH (10:28)
[2017-08-23] MEDS: RANITIDINE HCL 150 MG TABLET (FP) PO SCH ×2 (10:28→21:55)
[2017-08-23] MEDS: LIDOCAINE 5% TOPICAL PATCH TP SCH (10:28)
[2017-08-23] MEDS: NICOTINE 14 MG/24 HOURS TOPICAL PATCH TD SCH (10:28)
[2017-08-23] MEDS: PRENATAL VITAMINS W/ FOLIC ACID TABLET (FP) PO SCH (10:28)
[2017-08-23] MEDS: SERTRALINE HCL 50 MG TABLET (FP) PO SCH (10:28)
[2017-08-23] MEDS: ASPIRIN 325 MG TABLET PO SCH (10:28)
[2017-08-23] MEDS: METOPROLOL SUCCINATE 100 MG TAB.SR.24H (FP) PO SCH (10:29)
[2017-08-23] MEDS: COLCHICINE 0.6 MG TABLET (FP) PO SCH ×2 (10:29→21:55)
[2017-08-23] MEDS: ARTIFICIAL TEARS (POLYVINYL ALCOHOL 1.4%) OPTH DROPS OU SCH ×4 (10:29→21:50)
[2017-08-23] MEDS: NAPROXEN 500 MG TABLET (FP) PO PRN ×2 (10:31→21:56)
[2017-08-23] MEDS: MINERAL OIL/PETROLAT/WATER TOPICAL CREAM 113 GM JAR TP SCH (21:50)
[2017-08-23] MEDS: LIDOCAINE PATCH REMOVAL MC SCH (21:55)
[2017-08-23] MEDS: QUEtiapine FUMARATE 300 MG TABLET PO SCH (21:55)
[2017-08-23] MEDS: THIAMINE HCL 100 MG TABLET (FP) PO SCH (21:55)
[2017-08-23] MEDS: ATORVASTATIN CA 20 MG TABLET (FP) PO SCH (21:55)
[2017-08-24] MEDS: INSULIN SLIDING SCALE (NOVOLOG) 1 VIAL SQ SCH ×2 (07:10→16:54)
[2017-08-24] MEDS: metFORMIN HCL 500 MG TABLET (FP) PO SCH ×2 (07:10→16:54)
[2017-08-24] MEDS: PRENATAL VITAMINS W/ FOLIC ACID TABLET (FP) PO SCH (10:08)
[2017-08-24] MEDS: METOPROLOL SUCCINATE 100 MG TAB.SR.24H (FP) PO SCH (10:09)
[2017-08-24] MEDS: ASPIRIN 325 MG TABLET PO SCH (10:09)
[2017-08-24] MEDS: LIDOCAINE 5% TOPICAL PATCH TP SCH (10:09)
[2017-08-24] MEDS: NICOTINE 14 MG/24 HOURS TOPICAL PATCH TD SCH (10:09)
[2017-08-24] MEDS: LISINOPRIL 5 MG TABLET (FP) PO SCH (10:09)
[2017-08-24] MEDS: SERTRALINE HCL 50 MG TABLET (FP) PO SCH (10:09)
[2017-08-24] MEDS: RANITIDINE HCL 150 MG TABLET (FP) PO SCH ×2 (10:09→21:19)
[2017-08-24] MEDS: COLCHICINE 0.6 MG TABLET (FP) PO SCH ×2 (10:09→21:19)
[2017-08-24] MEDS: NAPROXEN 500 MG TABLET (FP) PO PRN ×2 (10:10→21:21)
[2017-08-24] MEDS: ARTIFICIAL TEARS (POLYVINYL ALCOHOL 1.4%) OPTH DROPS OU SCH ×4 (10:13→21:19)
[2017-08-24] MEDS: THIAMINE HCL 100 MG TABLET (FP) PO SCH (21:18)
[2017-08-24] MEDS: LIDOCAINE PATCH REMOVAL MC SCH (21:19)
[2017-08-24] MEDS: ATORVASTATIN CA 20 MG TABLET (FP) PO SCH (21:19)
[2017-08-24] MEDS: hydrOXYzine PAMOATE 50 MG CAPSULE (FP) PO PRN (21:19)
[2017-08-24] MEDS: MINERAL OIL/PETROLAT/WATER TOPICAL CREAM 113 GM JAR TP SCH (21:19)
[2017-08-24] MEDS: QUEtiapine FUMARATE 300 MG TABLET PO SCH (21:21)
[2017-08-25] MEDS: metFORMIN HCL 500 MG TABLET (FP) PO SCH ×2 (06:47→16:38)
[2017-08-25] MEDS: INSULIN SLIDING SCALE (NOVOLOG) 1 VIAL SQ SCH ×2 (07:10→16:38)
[2017-08-25] MEDS ORDERED: PT OWN MED DRAWER 7, Y5N ONE ×2 (08:36→20:20)
[2017-08-25] MEDS: RANITIDINE HCL 150 MG TABLET (FP) PO SCH ×2 (09:44→22:01)
[2017-08-25] MEDS: ASPIRIN 325 MG TABLET PO SCH (09:44)
[2017-08-25] MEDS: ARTIFICIAL TEARS (POLYVINYL ALCOHOL 1.4%) OPTH DROPS OU SCH ×4 (09:44→22:00)
[2017-08-25] MEDS: NICOTINE 14 MG/24 HOURS TOPICAL PATCH TD SCH (09:44)
[2017-08-25] MEDS: SERTRALINE HCL 50 MG TABLET (FP) PO SCH (09:44)
[2017-08-25] MEDS: PRENATAL VITAMINS W/ FOLIC ACID TABLET (FP) PO SCH (09:45)
[2017-08-25] MEDS: COLCHICINE 0.6 MG TABLET (FP) PO SCH ×2 (09:45→22:00)
[2017-08-25] MEDS: METOPROLOL SUCCINATE 100 MG TAB.SR.24H (FP) PO SCH (09:45)
[2017-08-25] MEDS: LISINOPRIL 5 MG TABLET (FP) PO SCH (09:45)
[2017-08-25] MEDS: LIDOCAINE 5% TOPICAL PATCH TP SCH (09:45)
[2017-08-25] MEDS: ATORVASTATIN CA 20 MG TABLET (FP) PO SCH (22:00)
[2017-08-25] MEDS: THIAMINE HCL 100 MG TABLET (FP) PO SCH (22:00)
[2017-08-25] MEDS: QUEtiapine FUMARATE 300 MG TABLET PO SCH (22:01)
[2017-08-25] MEDS: MINERAL OIL/PETROLAT/WATER TOPICAL CREAM 113 GM JAR TP SCH (22:01)
[2017-08-25] MEDS: LIDOCAINE PATCH REMOVAL MC SCH (22:02)
[2017-08-25] MEDS: NAPROXEN 500 MG TABLET (FP) PO PRN (22:03)
[2017-08-26] MEDS: metFORMIN HCL 500 MG TABLET (FP) PO SCH ×2 (06:56→17:49)
[2017-08-26] MEDS: INSULIN SLIDING SCALE (NOVOLOG) 1 VIAL SQ SCH ×2 (06:57→17:49)
[2017-08-26] MEDS: ASPIRIN 325 MG TABLET PO SCH (09:32)
[2017-08-26] MEDS: COLCHICINE 0.6 MG TABLET (FP) PO SCH ×2 (09:32→21:42)
[2017-08-26] MEDS: NICOTINE 14 MG/24 HOURS TOPICAL PATCH TD SCH (09:32)
[2017-08-26] MEDS: SERTRALINE HCL 50 MG TABLET (FP) PO SCH (09:32)
[2017-08-26] MEDS: LISINOPRIL 5 MG TABLET (FP) PO SCH (09:33)
[2017-08-26] MEDS: RANITIDINE HCL 150 MG TABLET (FP) PO SCH ×2 (09:33→21:42)
[2017-08-26] MEDS: METOPROLOL SUCCINATE 100 MG TAB.SR.24H (FP) PO SCH (09:33)
[2017-08-26] MEDS: LIDOCAINE 5% TOPICAL PATCH TP SCH (09:33)
[2017-08-26] MEDS: PRENATAL VITAMINS W/ FOLIC ACID TABLET (FP) PO SCH (09:33)
[2017-08-26] MEDS: NAPROXEN 500 MG TABLET (FP) PO PRN ×2 (09:33→21:44)
[2017-08-26] MEDS: ARTIFICIAL TEARS (POLYVINYL ALCOHOL 1.4%) OPTH DROPS OU SCH ×4 (09:34→21:41)
[2017-08-26] MEDS: ATORVASTATIN CA 20 MG TABLET (FP) PO SCH (21:42)
[2017-08-26] MEDS: QUEtiapine FUMARATE 300 MG TABLET PO SCH (21:42)
[2017-08-26] MEDS: THIAMINE HCL 100 MG TABLET (FP) PO SCH (21:42)
[2017-08-26] MEDS: LIDOCAINE PATCH REMOVAL MC SCH (21:43)
[2017-08-26] MEDS: MINERAL OIL/PETROLAT/WATER TOPICAL CREAM 113 GM JAR TP SCH (21:43)
[2017-08-27] MEDS: INSULIN SLIDING SCALE (NOVOLOG) 1 VIAL SQ SCH (07:22)
[2017-08-27] MEDS: metFORMIN HCL 500 MG TABLET (FP) PO SCH (07:22)
[2017-08-27 07:36] VITALS: BP 115/79; PULSE 86; TEMP 98.3
[2017-08-27] MEDS: ARTIFICIAL TEARS (POLYVINYL ALCOHOL 1.4%) OPTH DROPS OU SCH (09:58)
[2017-08-27] MEDS: SERTRALINE HCL 50 MG TABLET (FP) PO SCH (09:58)
[2017-08-27] MEDS: LIDOCAINE 5% TOPICAL PATCH TP SCH (09:58)
[2017-08-27] MEDS: PRENATAL VITAMINS W/ FOLIC ACID TABLET (FP) PO SCH (09:58)
[2017-08-27] MEDS: ASPIRIN 325 MG TABLET PO SCH (09:58)
[2017-08-27] MEDS: RANITIDINE HCL 150 MG TABLET (FP) PO SCH (09:58)
[2017-08-27] MEDS: NICOTINE 14 MG/24 HOURS TOPICAL PATCH TD SCH (09:58)
[2017-08-27] MEDS: COLCHICINE 0.6 MG TABLET (FP) PO SCH (09:58)
[2017-08-27] MEDS: LISINOPRIL 5 MG TABLET (FP) PO SCH (09:59)
[2017-08-27] MEDS: METOPROLOL SUCCINATE 100 MG TAB.SR.24H (FP) PO SCH (09:59)
--- NOTE | 2017-08-27 10:20 | PN ---
Psychiatric Progress Note Vital Signs: Vital Signs Period Temp Pulse Resp BP Sys/Reyes Pulse Ox Last 24 Hr 98.3 F 86 18-20 115/79 Date of Session: 08/27/17 Chief Complaint:: Discharge Note HPI: Patient addressing Alcohol Dependence comorbid with Nicotine Dependence and Substance-induced Mood Disorder ROS: HTN, HLD, DM, Gouty arthritis, GERD were medically managed Current Medications: Active Medications Generic Name Dose Route Start Last Admin Trade Name Freq PRN Reason Stop Dose Admin Acetaminophen 650 mg 08/09/17 23:24 08/21/17 21:52 Tylenol - PO 650 mg Q4H PRN Administration PAIN Al Hydroxide/Mg Hydroxide 30 ml 08/09/17 23:24 Mylanta Oral Suspension - PO Q6H PRN DYSPEPSIA Artificial Tears 1 drop 08/10/17 10:00 08/27/17 09:58 Artificial Tears OU Not Given QID KENISHA Aspirin 325 mg 08/10/17 10:00 08/27/17 09:58 Asa - PO 325 mg DAILY KENISHA Administration Atorvastatin Calcium 20 mg 08/10/17 22:00 08/26/17 21:42 Lipitor - PO 20 mg HS KENISHA Administration Colchicine 0.6 mg 08/10/17 10:00 08/27/17 09:58 Colcrys - PO 0.6 mg BID KENISHA Administration Colloidal Oatmeal 1 applic 08/09/17 23:31 08/10/17 01:46 Aveeno Soap - TP 1 applic DAILY PRN Administration HYGEINE Eucalyptus/Menthol/Phenol/Sorbitol 1 each 08/09/17 23:24 Cepastat Lozenge - MM Q4H PRN SORE THROAT Guaifenesin 10 ml 08/09/17 23:24 Robitussin Dm - PO Q6H PRN COUGH Hydroxyzine Pamoate 50 mg 08/10/17 09:48 08/24/17 21:19 Vistaril - PO 50 mg Q4H PRN Administration ANXIETY Insulin Aspart 1 vial 08/10/17 07:00 08/27/17 07:22 Novolog Vial Sliding Scale - SQ Not Given BIDAC KENISHA Protocol Lidocaine 1 patch 08/16/17 13:48 08/27/17 09:58 Lidoderm Patch - TP 1 patch DAILY KENISHA Administration Lisinopril 2.5 mg 08/10/17 10:00 08/27/17 09:59 Prinivil PO 2.5 mg DAILY KENISHA Administration Loperamide HCl 4 mg 08/09/17 23:24 Imodium - PO Q6H PRN DIARRHEA Magnesium Citrate 300 ml 08/09/17 23:24 Citroma - PO Q48H PRN CONSTIPATION Magnesium Hydroxide 30 ml 08/09/17 23:24 Milk Of Magnesia - PO DAILY PRN CONSTIPATION Metformin HCl 500 mg 08/10/17 07:00 08/27/17 07:22 Glucophage - PO 500 mg BIDAC KENISHA Administration Metoprolol Succinate 100 mg 08/10/17 10:00 08/27/17 09:59 Toprol Xl - PO 100 mg DAILY KENISHA Administration Miscellaneous 1 each 08/16/17 22:00 08/26/17 21:43 Lidoderm Patch Removal MC Not Given DAILY@2200 KENISHA Multi-Ingredient Lotion 1 applic 08/10/17 22:00 08/26/17 21:43 Eucerin (Small Jar) - TP Not Given HS KENISHA Naproxen 500 mg 08/09/17 23:35 08/26/17 21:44 Naprosyn - PO 500 mg BID PRN Administration BACK PAIN Nicotine 14 mg 08/10/17 10:00 08/27/17 09:58 Nicoderm Patch - TD 14 mg DAILY KENISHA Administration Nicotine Polacrilex 2 mg 08/09/17 23:24 Nicorette Gum - BC Q2H PRN NICOTINE REPLACEMENT RX Multivit/Folic Acid/Iron 1 tab 08/10/17 10:00 08/27/17 09:58 Vitamins ([facility]) - PO 1 tab DAILY KENISHA Administration Pseudoephedrine/Triprolidine 1 combo 08/09/17 23:24 Actifed - PO TID PRN NASAL CONGESTION Quetiapine Fumarate 300 mg 08/10/17 22:00 08/26/17 21:42 Seroquel - PO 300 mg HS KENISHA Administration Ranitidine HCl 150 mg 08/10/17 10:00 08/27/17 09:58 Zantac - PO 150 mg BID KENISHA Administration Sertraline HCl 150 mg 08/10/17 10:00 08/27/17 09:58 Zoloft - PO 150 mg DAILY KENISHA Administration Thiamine HCl 100 mg 08/10/17 22:00 08/26/17 21:42 Vitamin B1 - PO 100 mg HS KENISHA Administration Current Side Effect: No Lab tests ordered: Yes Lab tests reviewed: Yes Provider note:: Patient has completed this program on 08/27/17. He has met his treatment goals and will continue to address his issues in outpatient treatment at [facility]. Told food writer that from his participatient in this program, he has learned about his triggers and relapse prevention. He responded well to Seroquel 300 mg po HS and Zoloft 150 mg po daily. Scripts for 30 days supply of medications are electronically transmitted to [facility] at [address] [place] [id number]. He is stable for discharge today Total face to face time:: 35 Mental Status Exam - Mental Status Exam Alert and Oriented to: Time, Place, Person Cognitive Function: Fair Patient Appearance: Well Groomed Mood: Hopeful, Euthymic Affect: Appropriate Patient Behavior: Cooperative Speech Pattern: Clear Voice Loudness: Normal Thought Process: Intact, Goal Oriented Thought Disorder: Not Present Hallucinations: Denies Homicidal Ideation: Denies Insight/Judgement: Fair Sleep: Fair Appetite: Good Muscle strength/Tone: Normal Gait/Station: Normal Psychiatric Treatment Plan - Problem List (1) Alcohol dependence Current Visit: Yes (2) Nicotine dependence Current Visit: Yes Qualifiers: Nicotine product type: cigarettes Substance use status: in withdrawal Qualified Code(s): F17.213 - Nicotine dependence, cigarettes, with withdrawal (3) MDD (major depressive disorder), recurrent severe, without psychosis Current Visit: No (4) Drug-induced mood disorder Current Visit: Yes (5) DM (diabetes mellitus), type 2 Current Visit: Yes Qualifiers: Diabetes mellitus complication status: without complication 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
[2017-08-27] MEDS ORDERED: PT OWN MED DRAWER 7, Y5N ONE (10:49)
== END 2017-08-27 11:00 | disposition home or self-care (01) | DRG 772 ==
LOC: YASAS 18:05 → Y3W 22:05
PROVIDERS: ADMIT Psychiatry & Neurology Psychiatry; ATTEND Psychiatry & Neurology Psychiatry
PROC: HZ42ZZZ Group Counseling for Substance Abuse Treatment, Cognitive-Behavioral (ICD-10-PCS; principal; 2017-08-09)
DX: F10.20 Alcohol dependence, uncomplicated (principal); F17.210 Nicotine dependence, cigarettes, uncomplicated; F33.2 Major depressive disorder, recurrent severe without psychotic features; F19.24 Other psychoactive substance dependence with psychoactive substance-induced mood disorder; I10 Essential (primary) hypertension; E11.9 Type 2 diabetes mellitus without complications; Z79.84 Long term (current) use of oral hypoglycemic drugs; K21.9 Gastro-esophageal reflux disease without esophagitis; M10.9 Gout, unspecified; E66.01 Morbid (severe) obesity due to excess calories; Z68.34 Body mass index [BMI] 34.0-34.9, adult
CPT/HCPCS: 36415; 80053; 81003; 85027; 86593; 93005; 93010

== ENCOUNTER 2017-10-04 08:55 | Inpatient (IN) | payer OTHER ==
[2017-10-04 09:54] VITALS: BMI 34.9
--- NOTE | 2017-10-04 12:38 | HP ---
CIWA Score - CIWA Score Nausea/Vomitin-No Nausea/No Vomiting Muscle Tremors: 4-Moderate,w/Arms Extend Anxiety: 4-Mod. Anxious/Guarded Agitation: 3 Paroxysmal Sweats: 1-Minimal Palms Moist Orientation: 0-Oriented Tacttile Disturbances: 3-Moderate Itch/Numb/Burn Auditory Disturbances: 0-None Visual Disturbances: 0-None Headache: 0-None Present CIWA-Ar Total Score: 15 Admission ROS [facility] - HPI Chief Complaint: WITHDRAWAL SX FROM ALCOHOL Allergies/Adverse Reactions: Allergies Allergy/AdvReac Type Severity Reaction Status Date / Time influenza virus vaccine ts Allergy Intermediate Swelling Verified 10/04/17 11:23 2012- [From Fluarix] pneumococcal vaccine Allergy Mild Swelling Verified 10/04/17 11:23 [Pneumococcal Vaccine] History of Present Illness: 52 Y/O AA/MALE WITH A HX OF ALCOHOL DEPENDENCE SEEKING DETOX TX. 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 PT REPORTS HE WAS HOSPITALIZED FOR 3 DAYS 3 WEEKS AGO AT [facility] FOR LEFT KNEE TAP PROCEDURE. PT LIVES IN [facility] [place] 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 SPOKE TO PT'S HOME PHARMACIST AT [employer] [place], [place] WHO CONFIRMED THAT ALL PT'S MEDS GETS DELIVERED TO THE [facility]. ZOLOFT 100 MG 2 TABS PO DAILY OF 10/01/17 SEROQUEL 200 MG 1 TAB PO DAILY LOPRESSOR,COLCHICINE AND LIPITOR DOSES IN HOME MED LIST. PREDNISONE TAPER FILLED 09/24/17 PER PHARMACIST(SEE MED LIST DOCUMENT IN PT'S CHART). TAPER DOSE COMPLETE BY DATE. Exam Limitations: No Limitations - Ebola screening Have you traveled outside of the country in the last 21 days: No (N) Have you had contact with anyone from an Ebola affected area: No Have you been sick,other than usual withdrawal symptoms: No Do you have a fever: No - Review of Systems Constitutional: Chills, Night Sweats, Changes in sleep (SLEEP APNEA/INSOMNIA HX ) EENT: reports: Blurred Vision (TAKES ARTIFICIAL TEARS), Tearing, Nose Congestion , Dental Problems (MISSING TEETH) Respiratory: reports: No Symptoms reported Cardiac: reports: Lightheadedness GI: reports: Constipated, Diarrhea, Nausea, Vomiting, Abdominal cramping : reports: No Symptoms Reported Musculoskeletal: reports: Back Pain, Joint Pain (RECENT LEFT KNEE TAP), Muscle Pain, Other (PREDNISONE FOR GOUTY ARTHRITIS OF JOINTS) Integumentary: reports: Dryness Neuro: reports: Headache, Numbness, Tingling, Tremors, Unsteady Gait (HX FALLS) , Dizziness Endocrine: reports: Increased Hunger, Increased Thirst, Increased Urine, Unexplained Weight Gain Hematology: reports: No Symptoms Reported Psychiatric: reports: Orientated x3, Anxious, Depressed Other Systems: Reviewed and Negative Patient History - Patient Medical History Hx Anemia: No Hx Asthma: No Hx Chronic Obstructive Pulmonary Disease (COPD): No Hx Cancer: No Hx Cardiac Disorders: No Hx Congestive Heart Failure: No Hx Hypertension: Yes (Pt is on meds.) Hx Hypercholesterolemia: Yes (ON MED) Hx Pacemaker: No Hx Seizures: No Hx Dementia: No Hx Diabetes: Yes (Type II not taking meds.) Hx Gastrointestinal Disorders: Yes (Pt has a hx of GERD-PROTONIX IN THE PAST.) Hx Liver Disease: No Hx Genitourinary Disorders: No Hx Sexually Transmitted Disorders: No Hx Renal Disease (ESRD): No Hx Thyroid Disease: No Hx Human Immunodeficiency Virus (HIV): No (NEGATIVE HX) Hx Hepatitis C: No Hx Depression: Yes (ON MED) Hx Suicide Attempt: No (DENIES) Hx Bipolar Disorder: No Hx Schizophrenia: No Other Medical History: HX LEFT KNEE TAP - Patient Surgical History Past Surgical History: No Hx Neurologic Surgery: No Hx Cataract Extraction: No Hx Cardiac Surgery: No Hx Lung Surgery: No Hx Breast Surgery: No Hx Breast Biopsy: No Hx Abdominal Surgery: No Hx Appendectomy: No Hx Cholecystectomy: No Hx Genitourinary Surgery: No Hx Orthopedic Surgery: No Anesthesia Reaction: No - PPD History Previous Implant?: Yes Documented Results: Negative w/o proof Implanted On Prior [facility] Admission?: Yes Date: 06/12/15 Results: 0 mm PPD to be Administered?: Yes - Reproductive History Patient is a Female of Child Bearing Age (11 -55 yrs old): No (MALE) - Smoking Cessation Smoking history: Current every day smoker Have you smoked in the past 12 months: Yes Aproximately how many cigarettes per day: 6 Cigars Per Day: 0 Hx Chewing Tobacco Use: No Initiated information on smoking cessation: Yes 'Breaking Loose' booklet given: 10/04/17 - Substance & Tx. History Hx Alcohol Use: Yes (VODKA/MALT LIQOUR) Hx Substance Use: No (DENIES) Substance Use Type: Alcohol Hx Substance Use Treatment: Yes (LAST [place] AT [facility]) - Substances Abused Alcohol Route: Oral Frequency: Daily Amount used: 1 pint vodka/ 8 cans beer Age of first use: 14 Date of Last Use: 10/02/17 Family Disease History - Family Disease History Family Disease History: Other: Father (alcohol,), Mother (), Brother (alcohol) Admission Physical Exam S - Vital Signs Vital Signs: Vital Signs - 24 hr 10/04/17 09:52 Temperature 97.9 F Pulse Rate 110 H Respiratory 20 Rate Blood Pressure 143/98 - Physical General Appearance: Yes: Moderate Distress, Obese, Irritable, Anxious HEENTM: Yes: EOMI, Normocephalic, GRACIELA, Pharynx Normal Respiratory: Yes: Chest Non-Tender, Lungs Clear, Normal Breath Sounds, No Respiratory Distress Neck: Yes: No masses,lesions,Nodules, Supple, Trachea in good position Breast: Yes: Breast Exam Deferred Cardiology: Yes: Regular Rhythm, S1, S2, Tachycardia Abdominal: Yes: Normal Bowel Sounds, Non Tender, Soft, Protuberent Genitourinary: Yes: Other Musculoskeletal: Yes: Gait Steady, Joint swelling Extremities: Yes: Normal Range of Motion, Non-Tender 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: loan documents closer II-XII NML intact, Fully Oriented, Alert Integumentary: Yes: Dry, Warm Lymphatic: Yes: Within Normal Limits - Diagnostic (1) Alcohol dependence with uncomplicated withdrawal Current Visit: Yes Status: Acute (2) DM (diabetes mellitus), type 2 Current Visit: Yes Status: Chronic Qualifiers: Diabetes mellitus complication status: without complication Diabetes mellitus long-term insulin use: without long-term use Qualified Code(s): E11.9 - Type 2 diabetes mellitus without complications (3) Dry eyes, bilateral Current Visit: Yes Status: Chronic (4) GERD (gastroesophageal reflux disease) Current Visit: Yes Status: Chronic Qualifiers: Esophagitis presence: without esophagitis Qualified Code(s): K21.9 - Gastro -esophageal reflux disease without esophagitis (5) Gouty arthritis Current Visit: Yes Status: Chronic (6) HTN (hypertension) Current Visit: Yes Status: Chronic Qualifiers: Hypertension type: essential hypertension Qualified Code(s): I10 - Essential (primary) hypertension (7) Hyperlipidemia Current Visit: Yes Status: Chronic Qualifiers: Hyperlipidemia type: pure hypercholesterolemia Qualified Code(s): E78.00 - Pure hypercholesterolemia, unspecified; E78.0 - Pure hypercholesterolemia (8) Morbid obesity Current Visit: Yes Status: Chronic (9) Nicotine dependence Current Visit: Yes Status: Acute Qualifiers: Nicotine product type: cigarettes Substance use status: in withdrawal Qualified Code(s): F17.213 - Nicotine dependence, cigarettes, with withdrawal (10) History of sleep apnea Current Visit: Yes Status: Chronic Cleared for Admission S - Detox or Rehab [facility] Level of Care: Medically Managed Detox Regimen/Protocol: Librium [facility] Breath Alcohol Content Breath Alcohol Content: 0 Urine Drug Screen - Results Drug Screen Negative: No Urine Drug Screen Results: BZO-Benzodiazepines
[2017-10-04] MEDS ORDERED: MENTHOL/PHENOL 1 EACH UD MM PRN (13:04)
[2017-10-04] MEDS ORDERED: MAGNESIUM CITRATE 300 ML BOTTLE PO PRN (13:04)
[2017-10-04] MEDS ORDERED: LOPERAMIDE HCL 2 MG CAPSULE PO PRN (13:04)
[2017-10-04] MEDS ORDERED: P-EPHED 60MG/TRIPROLIDI 2.5MG TABLET PO PRN (13:04)
[2017-10-04] MEDS ORDERED: NICOTINE POLACRILEX 2 MG GUM BUC PRN (13:04)
[2017-10-04] MEDS ORDERED: chlordiazePOXIDE HCL 25 MG CAPSULE PO PRN (13:04)
[2017-10-04] MEDS ORDERED: MAG HYDROX/AL HYDROX/SIMETH 30 ML UNIT-DOSE CUP PO PRN (13:04)
[2017-10-04] MEDS ORDERED: ACETAMINOPHEN 325 MG TABLET (FP) PO PRN (13:04)
[2017-10-04] MEDS ORDERED: MAGNESIUM HYDROX 2400MG/30ML ORAL SUSPENSION 30 ML CUP PO PRN (13:04)
[2017-10-04] MEDS ORDERED: guaiFENesin/D-METHORPHAN HB 10 ML UNIT-DOSE CUPS PO PRN (13:04)
[2017-10-04] MEDS ORDERED: chlordiazePOXIDE HCL 25 MG CAPSULE PO ONE (13:40)
[2017-10-04] MEDS: NICOTINE 14 MG/24 HOURS TOPICAL PATCH TD SCH (14:07)
--- NOTE | 2017-10-04 16:28 | CONSULT ---
[facility] Psychiatric Consult - Data Date of interview: 10/04/17 Admission source: [facility] Identifying data: Pt. is a 52 year old male, single, without kids, and currently unemployed. This is one of multiple admissions for patient. Pt. admitted to for alcohol dependence. Substance Abuse History: Following information confirmed with Mr. Selby: - Smoking Cessation. Smoking history: Current every day smoker. Have you smoked in the past 12 months: Yes. Aproximately how many cigarettes per day: 6. Cigars Per Day: 0. Hx Chewing Tobacco Use: No. Initiated information on smoking cessation: Yes. 'Breaking Loose' booklet given: 10/04/17. - Substance & Tx. History. Hx Alcohol Use: Yes (VODKA/MALT LIQOUR). Hx Substance Use: No ( DENIES). Substance Use Type: Alcohol. Hx Substance Use Treatment: Yes (LAST TX AT [facility]). - Substances Abused. Alcohol. Route: Oral. Frequency: Daily. Amount used: 1 pint vodka/ 8 cans beer. Age of first use: 14. Date of Last Use: 10/02/17 Medical History: hypertension, diabetes, GERD Psychiatric History: Reports first encounter with a psychiatrist was at [facility] in 2004. States he was diagnosed with Depression and schizophrenia. Reports most recent psychiatric hospitalization at [facility] in 2015. Reports last seeing an outpatient psychiatrist in april of 2017 at the housing [facility] he lived [facility]. Pt. with an unclear medication history. States his medications are: Seroquel 200 po daily + Seroquel 400 qhs + Zoloft 200mg. Patient's pharmacy ([facility]) contacted at [phone]. Pharmacist reports a prescription of zoloft 100mg (2 tablets) po daily for 200mg total and seroquel 200mg po daily on 10/01/2017. Patient's states his most recent prescription (prescription on 10/01/2017) was given to him at [facility] after being admitted for medical reasons. Pt. was given a prescription of seroquel 400mg qhs on 08/2017. Reports medication adherence, states he took his medications two days ago. Pt. denies h/o suicide attempt. Pt. denies sucidal ideation. Physical/Sexual Abuse/Trauma History: Denies. Mental Status Exam - Mental Status Exam Alert and Oriented to: Time, Place, Person Cognitive Function: Good Patient Appearance: Well Groomed Mood: Hopeful Affect: Mood Congruent Patient Behavior: Appropriate, Cooperative Speech Pattern: Appropriate Voice Loudness: Normal Thought Process: Goal Oriented Thought Disorder: Not Present Hallucinations: Denies Suicidal Ideation: Denies Homicidal Ideation: Denies Insight/Judgement: Poor Sleep: Poorly Appetite: Fair Muscle strength/Tone: Normal Gait/Station: Other (Did not observe patient's gait.) Psychiatric Findings - Problem List ([place] 1, 2,3) (1) MDD (major depressive disorder) Current Visit: Yes Status: Chronic Comment: Self reports. (2) Schizophrenia Current Visit: Yes Status: Chronic Comment: Self reports. (3) Alcohol dependence with uncomplicated withdrawal Current Visit: Yes Status: Acute (4) Alcohol dependence Current Visit: Yes Status: Acute - Initial Treatment Plan Initial Treatment Plan: Psychoeducation provided. Detoxification in progress. Zoloft 150mg po daily (reduce dosage due to patient's uncertainty) + Seroquel 300mg qhs ordered (reduce dosage to decrease oversedation, pt. reports taking 400mg qhs). Pt. prescribed zoloft 150mg po daily and seroquel 300mg qhs while in rehab in [facility] on 08/2017. Pt. tolerated medication and dosages well. Benefits and side effects discussed. Verbal consent given. Will continue to monitor patient.
[2017-10-04 16:54] LABS: URINE APPEARANCE CLEAR; URINE BILIRUBIN NEGATIVE (NEGATIVE); URINE BLOOD NEGATIVE (NEGATIVE); URINE COLOR LTYELLOW; URINE GLUCOSE (UA) NEGATIVE (NEGATIVE); URINE KETONE NEGATIVE (NEGATIVE); URINE LEUK ESTERASE NEGATIVE (NEGATIVE); URINE NITRITE NEGATIVE (NEGATIVE); URINE PROTEIN NEGATIVE (NEGATIVE); URINE UROBILINOGEN NEGATIVE mg/dL (0.2-1.0)
[2017-10-04 16:55] LABS: HEMATOCRIT 35.5 % (35.4-49); HEMOGLOBIN 11.8 GM/dL (11.7-16.9); MCH 29.5 pg (25.7-33.7); MCHC 33.1 g/dl (32.0-35.9); MEAN CELL VOLUME 89.2 fl (80-96); MEAN PLT VOLUME 10.9 fl (7.5-11.1); PLATELET COUNT 165 K/MM3 (134-434); RBC 3.98 M/mm3 (4.00-5.60); RDW 14.8 % (11.9-15.9); WHITE BLOOD COUNT 4.6 K/mm3 (4.0-10.0)
[2017-10-04 17:05] LABS: ALBUMIN 3.3 g/dl (3.4-5.0); ALK PHOS 90 U/L (45-117); ANION GAP 10 (8-16); BILIRUBIN,TOTAL 0.2 mg/dL (0.2-1.0); BLOOD UREA NITROGEN 16 mg/dL (7-18); CALCIUM 8.9 mg/dL (8.5-10.1); CHLORIDE 108 mmol/L (98-107); CO2 28 mmol/L (21-32); CREATININE 1.2 mg/dL (0.7-1.3); GLUCOSE,RANDOM 98 mg/dL (74-106); POTASSIUM 4.9 mmol/L (3.5-5.1); SGOT/AST 31 U/L (15-37); SGPT/ALT 41 U/L (12-78); SODIUM 146 mmol/L (136-145); TOT PROT 7.3 g/dl (6.4-8.2)
[2017-10-04] MEDS: ASPIRIN 325 MG TABLET PO SCH (17:55)
[2017-10-04] MEDS: COLCHICINE 0.6 MG TABLET (FP) PO SCH (17:55)
[2017-10-04] MEDS: chlordiazePOXIDE HCL 25 MG CAPSULE PO SCH ×2 (17:56→22:13)
[2017-10-04] MEDS: IBUPROFEN 400 MG TABLET (FP) PO PRN (18:00)
[2017-10-04] MEDS: INSULIN SLIDING SCALE (NOVOLOG) 1 VIAL SQ SCH (18:02)
[2017-10-04] MEDS ORDERED: ATORVASTATIN CA 40 MG TABLET (FP) ONE (20:04)
[2017-10-04] MEDS: ATORVASTATIN CA 80 MG TABLET (FP) PO SCH (22:14)
[2017-10-04] MEDS: METOPROLOL TARTRATE 50 MG TABLET (FP) PO SCH (22:14)
[2017-10-04] MEDS: THIAMINE HCL 100 MG TABLET (FP) PO SCH (22:14)
[2017-10-04] MEDS: QUEtiapine FUMARATE 300 MG TABLET PO SCH (22:15)
[2017-10-05] MEDS: chlordiazePOXIDE HCL 25 MG CAPSULE PO SCH ×4 (05:54→22:18)
[2017-10-05] MEDS: INSULIN SLIDING SCALE (NOVOLOG) 1 VIAL SQ SCH ×2 (07:30→17:26)
--- NOTE | 2017-10-05 09:54 | EKG ---
Test Reason : Blood Pressure : / mmHG Vent. Rate : 103 BPM Atrial Rate : 103 BPM P-R Int : 160 ms QRS Dur : 066 ms QT Int : 342 ms P-R-T Axes : 063 006 024 degrees QTc Int : 448 ms SINUS TACHYCARDIA OTHERWISE NORMAL ECG WHEN COMPARED WITH ECG OF 10-AUG-2017 06:35, NO SIGNIFICANT CHANGE WAS FOUND Confirmed by MALLORY CARPENTER MD ([id number]) on 10/05/2017 9:53:55 AM Referred By: Confirmed By:MALLORY CARPENTER MD
[2017-10-05] MEDS ORDERED: SERTRALINE HCL 50 MG TABLET (FP) PO SCH (10:00)
[2017-10-05] MEDS: NICOTINE 14 MG/24 HOURS TOPICAL PATCH TD SCH (10:11)
[2017-10-05] MEDS: PRENATAL VITAMINS W/ FOLIC ACID TABLET (FP) PO SCH (10:11)
[2017-10-05] MEDS: ASPIRIN 325 MG TABLET PO SCH (10:11)
[2017-10-05] MEDS: METOPROLOL TARTRATE 50 MG TABLET (FP) PO SCH ×2 (10:11→22:19)
[2017-10-05] MEDS: SERTRALINE HCL 50 MG TABLET (FP) PO SCH (10:11)
[2017-10-05] MEDS: COLCHICINE 0.6 MG TABLET (FP) PO SCH (10:11)
[2017-10-05] MEDS: IBUPROFEN 400 MG TABLET (FP) PO PRN ×2 (10:14→22:20)
--- NOTE | 2017-10-05 11:31 | PN ---
[facility] CIWA - CIWA Score Nausea/Vomitin-No Nausea/No Vomiting Muscle Tremors: 4-Moderate,w/Arms Extend Anxiety: 3 Agitation: 2 Paroxysmal Sweats: 2 Orientation: 0-Oriented Tacttile Disturbances: 2-Mild Itch/Numbness/Burn Auditory Disturbances: 2-Mild Harshness/Frighten Visual Disturbances: 2-Mild Sensitivity Headache: 0-None Present CIWA-Ar Total Score: 17 S Progress Note (SOAP) Subjective: Tremors, Body Aches, Sweating. Objective: PT. A & O X 3, OBSERVED AMBULATING ON UNIT. NO ACUTE DISTRESS. 10/05/17 11:29 Vital Signs Temperature 98.4 F 10/05/17 09:31 Pulse Rate 89 10/05/17 09:31 Respiratory Rate 20 10/05/17 09:31 Blood Pressure 131/91 10/05/17 09:31 O2 Sat by Pulse Oximetry (%) Laboratory Tests 10/04/17 10/04/17 10/04/17 12:15 13:15 13:15 WBC 4.6 RBC 3.98 L Hgb 11.8 Hct 35.5 MCV 89.2 MCH 29.5 MCHC 33.1 RDW 14.8 Plt Count 165 D MPV 10.9 Sodium 146 H Potassium 4.9 Chloride 108 H Carbon Dioxide 28 Anion Gap 10 BUN 16 D Creatinine 1.2 Creat Clearance w eGFR > 60 POC Glucometer 137 Random Glucose 98 Calcium 8.9 Total Bilirubin 0.2 D AST 31 ALT 41 D Alkaline Phosphatase 90 D Total Protein 7.3 Albumin 3.3 L Urine Color Urine Appearance Urine pH Ur Specific [place] Urine Protein Urine Glucose (UA) Urine Ketones Urine Blood Urine Nitrite Urine Bilirubin Urine Urobilinogen Ur Leukocyte Esterase RPR Titer 10/04/17 10/04/17 10/04/17 13:15 15:40 16:19 WBC RBC Hgb Hct MCV MCH MCHC RDW Plt Count MPV Sodium Potassium Chloride Carbon Dioxide Anion Gap BUN Creatinine Creat Clearance w eGFR POC Glucometer 117 Random Glucose Calcium Total Bilirubin AST ALT Alkaline Phosphatase Total Protein Albumin Urine Color Ltyellow Urine Appearance Clear Urine pH 6.0 Ur Specific [place] 1.014 Urine Protein Negative Urine Glucose (UA) Negative Urine Ketones Negative Urine Blood Negative Urine Nitrite Negative Urine Bilirubin Negative Urine Urobilinogen Negative Ur Leukocyte Esterase Negative RPR Titer Nonreactive 10/05/17 05:53 WBC RBC Hgb Hct MCV MCH MCHC RDW Plt Count MPV Sodium Potassium Chloride Carbon Dioxide Anion Gap BUN Creatinine Creat Clearance w eGFR POC Glucometer 146 Random Glucose Calcium Total Bilirubin AST ALT Alkaline Phosphatase Total Protein Albumin Urine Color Urine Appearance Urine pH Ur Specific [place] Urine Protein Urine Glucose (UA) Urine Ketones Urine Blood Urine Nitrite Urine Bilirubin Urine Urobilinogen Ur Leukocyte Esterase RPR Titer LABS NOTED. Assessment: 10/05/17 11:30 WITHDRAWAL SYMPTOMS. Plan: CONTINUE DETOX. INCREASE DAILY PO FLUID INTAKE.
[2017-10-05] MEDS ORDERED: ATORVASTATIN CA 40 MG TABLET (FP) ONE (21:40)
[2017-10-05] MEDS: THIAMINE HCL 100 MG TABLET (FP) PO SCH (22:18)
[2017-10-05] MEDS: QUEtiapine FUMARATE 300 MG TABLET PO SCH (22:19)
[2017-10-05] MEDS: ATORVASTATIN CA 80 MG TABLET (FP) PO SCH (22:19)
[2017-10-06] MEDS: chlordiazePOXIDE HCL 25 MG CAPSULE PO SCH ×2 (05:44→10:41)
[2017-10-06] MEDS: INSULIN SLIDING SCALE (NOVOLOG) 1 VIAL SQ SCH ×2 (06:53→17:23)
[2017-10-06] MEDS: IBUPROFEN 400 MG TABLET (FP) PO PRN (09:41)
[2017-10-06] MEDS: METOPROLOL TARTRATE 50 MG TABLET (FP) PO SCH ×2 (10:39→22:11)
[2017-10-06] MEDS: COLCHICINE 0.6 MG TABLET (FP) PO SCH (10:39)
[2017-10-06] MEDS: SERTRALINE HCL 50 MG TABLET (FP) PO SCH (10:39)
[2017-10-06] MEDS: ASPIRIN 325 MG TABLET PO SCH (10:39)
[2017-10-06] MEDS: PRENATAL VITAMINS W/ FOLIC ACID TABLET (FP) PO SCH (10:39)
[2017-10-06] MEDS: NICOTINE 14 MG/24 HOURS TOPICAL PATCH TD SCH (10:40)
--- NOTE | 2017-10-06 15:16 | PN ---
S CIWA - CIWA Score Nausea/Vomitin-No Nausea/No Vomiting Muscle Tremors: 4-Moderate,w/Arms Extend Anxiety: 3 Agitation: 2 Paroxysmal Sweats: 3 Orientation: 2-Disoriented Date<2 days Tacttile Disturbances: 1-Very Mild Itch/Numbness Auditory Disturbances: 1-Very Mild Visual Disturbances: 0-None Headache: 0-None Present CIWA-Ar Total Score: 16 [facility] Progress Note (SOAP) Subjective: Tremors, Sweating, Anxious. Objective: PT. A & O X 2 (UNCERTAIN ABOUT CURRENT DAY / DATE). PT. OBSERVED AMBULATING ON UNIT. NO ACUTE DISTRESS. 10/06/17 15:15 Vital Signs Temperature 98.4 F 10/06/17 13:04 Pulse Rate 76 10/06/17 13:04 Respiratory Rate 18 10/06/17 13:04 Blood Pressure 135/93 10/06/17 13:04 O2 Sat by Pulse Oximetry (%) Laboratory Tests 10/04/17 10/04/17 10/04/17 12:15 13:15 13:15 WBC 4.6 RBC 3.98 L Hgb 11.8 Hct 35.5 MCV 89.2 MCH 29.5 MCHC 33.1 RDW 14.8 Plt Count 165 D MPV 10.9 Sodium 146 H Potassium 4.9 Chloride 108 H Carbon Dioxide 28 Anion Gap 10 BUN 16 D Creatinine 1.2 Creat Clearance w eGFR > 60 POC Glucometer 137 Random Glucose 98 Calcium 8.9 Total Bilirubin 0.2 D AST 31 ALT 41 D Alkaline Phosphatase 90 D Total Protein 7.3 Albumin 3.3 L Urine Color Urine Appearance Urine pH Ur Specific [place] Urine Protein Urine Glucose (UA) Urine Ketones Urine Blood Urine Nitrite Urine Bilirubin Urine Urobilinogen Ur Leukocyte Esterase RPR Titer 10/04/17 10/04/17 10/04/17 13:15 15:40 16:19 WBC RBC Hgb Hct MCV MCH MCHC RDW Plt Count MPV Sodium Potassium Chloride Carbon Dioxide Anion Gap BUN Creatinine Creat Clearance w eGFR POC Glucometer 117 Random Glucose Calcium Total Bilirubin AST ALT Alkaline Phosphatase Total Protein Albumin Urine Color Ltyellow Urine Appearance Clear Urine pH 6.0 Ur Specific [place] 1.014 Urine Protein Negative Urine Glucose (UA) Negative Urine Ketones Negative Urine Blood Negative Urine Nitrite Negative Urine Bilirubin Negative Urine Urobilinogen Negative Ur Leukocyte Esterase Negative RPR Titer Nonreactive 10/05/17 10/05/17 10/06/17 05:53 16:18 05:42 WBC RBC Hgb Hct MCV MCH MCHC RDW Plt Count MPV Sodium Potassium Chloride Carbon Dioxide Anion Gap BUN Creatinine Creat Clearance w eGFR POC Glucometer 146 126 135 Random Glucose Calcium Total Bilirubin AST ALT Alkaline Phosphatase Total Protein Albumin Urine Color Urine Appearance Urine pH Ur Specific [place] Urine Protein Urine Glucose (UA) Urine Ketones Urine Blood Urine Nitrite Urine Bilirubin Urine Urobilinogen Ur Leukocyte Esterase RPR Titer LABS NOTED. Assessment: 10/06/17 15:15 WITHDRAWAL SYMPTOMS. Plan: CONTINUE DETOX. INCREASE DAILY PO FLUID INTAKE.
[2017-10-06] MEDS: chlordiazePOXIDE 5 MG CAPSULE PO SCH ×2 (17:23→22:11)
[2017-10-06] MEDS ORDERED: ATORVASTATIN CA 40 MG TABLET (FP) ONE (21:27)
[2017-10-06] MEDS: THIAMINE HCL 100 MG TABLET (FP) PO SCH (22:10)
[2017-10-06] MEDS: ATORVASTATIN CA 80 MG TABLET (FP) PO SCH (22:11)
[2017-10-06] MEDS: QUEtiapine FUMARATE 300 MG TABLET PO SCH (22:11)
[2017-10-07] MEDS: chlordiazePOXIDE 5 MG CAPSULE PO SCH ×2 (05:11→10:18)
[2017-10-07] MEDS: INSULIN SLIDING SCALE (NOVOLOG) 1 VIAL SQ SCH ×2 (06:26→16:33)
[2017-10-07] MEDS: IBUPROFEN 400 MG TABLET (FP) PO PRN ×2 (09:40→22:17)
[2017-10-07] MEDS: SERTRALINE HCL 50 MG TABLET (FP) PO SCH (10:18)
[2017-10-07] MEDS: METOPROLOL TARTRATE 50 MG TABLET (FP) PO SCH ×2 (10:18→22:14)
[2017-10-07] MEDS: COLCHICINE 0.6 MG TABLET (FP) PO SCH (10:18)
[2017-10-07] MEDS: PRENATAL VITAMINS W/ FOLIC ACID TABLET (FP) PO SCH (10:18)
[2017-10-07] MEDS: ASPIRIN 325 MG TABLET PO SCH (10:20)
[2017-10-07] MEDS: NICOTINE 14 MG/24 HOURS TOPICAL PATCH TD SCH (10:21)
--- NOTE | 2017-10-07 12:11 | PN ---
[facility] Progress Note (SOAP) Subjective: Pain in knees, sweating, anxious Objective: 10/07/17 12:10 Last Vital Signs Temp Pulse Resp BP Pulse Ox 98.8 F 84 16 136/88 10/07/17 09:21 10/07/17 09:21 10/07/17 09:21 10/07/17 09:21 Laboratory Tests 10/04/17 10/04/17 10/04/17 12:15 13:15 13:15 WBC 4.6 RBC 3.98 L Hgb 11.8 Hct 35.5 MCV 89.2 MCH 29.5 MCHC 33.1 RDW 14.8 Plt Count 165 D MPV 10.9 Sodium 146 H Potassium 4.9 Chloride 108 H Carbon Dioxide 28 Anion Gap 10 BUN 16 D Creatinine 1.2 Creat Clearance w eGFR > 60 POC Glucometer 137 Random Glucose 98 Calcium 8.9 Total Bilirubin 0.2 D AST 31 ALT 41 D Alkaline Phosphatase 90 D Total Protein 7.3 Albumin 3.3 L Urine Color Urine Appearance Urine pH Ur Specific [place] Urine Protein Urine Glucose (UA) Urine Ketones Urine Blood Urine Nitrite Urine Bilirubin Urine Urobilinogen Ur Leukocyte Esterase RPR Titer 10/04/17 10/04/17 10/04/17 13:15 15:40 16:19 WBC RBC Hgb Hct MCV MCH MCHC RDW Plt Count MPV Sodium Potassium Chloride Carbon Dioxide Anion Gap BUN Creatinine Creat Clearance w eGFR POC Glucometer 117 Random Glucose Calcium Total Bilirubin AST ALT Alkaline Phosphatase Total Protein Albumin Urine Color Ltyellow Urine Appearance Clear Urine pH 6.0 Ur Specific [place] 1.014 Urine Protein Negative Urine Glucose (UA) Negative Urine Ketones Negative Urine Blood Negative Urine Nitrite Negative Urine Bilirubin Negative Urine Urobilinogen Negative Ur Leukocyte Esterase Negative RPR Titer Nonreactive 10/05/17 10/05/17 10/06/17 05:53 16:18 05:42 WBC RBC Hgb Hct MCV MCH MCHC RDW Plt Count MPV Sodium Potassium Chloride Carbon Dioxide Anion Gap BUN Creatinine Creat Clearance w eGFR POC Glucometer 146 126 135 Random Glucose Calcium Total Bilirubin AST ALT Alkaline Phosphatase Total Protein Albumin Urine Color Urine Appearance Urine pH Ur Specific [place] Urine Protein Urine Glucose (UA) Urine Ketones Urine Blood Urine Nitrite Urine Bilirubin Urine Urobilinogen Ur Leukocyte Esterase RPR Titer 10/06/17 10/07/17 16:20 05:11 WBC RBC Hgb Hct MCV MCH MCHC RDW Plt Count MPV Sodium Potassium Chloride Carbon Dioxide Anion Gap BUN Creatinine Creat Clearance w eGFR POC Glucometer 103 116 Random Glucose Calcium Total Bilirubin AST ALT Alkaline Phosphatase Total Protein Albumin Urine Color Urine Appearance Urine pH Ur Specific [place] Urine Protein Urine Glucose (UA) Urine Ketones Urine Blood Urine Nitrite Urine Bilirubin Urine Urobilinogen Ur Leukocyte Esterase RPR Titer Labs noted Assessment: 10/07/17 12:11 Withdrawal symptoms Plan: Continue detox
[2017-10-07] MEDS: chlordiazePOXIDE HCL 10 MG CAPSULE PO SCH ×2 (17:30→22:14)
[2017-10-07] MEDS: ATORVASTATIN CA 80 MG TABLET (FP) PO SCH (22:14)
[2017-10-07] MEDS: QUEtiapine FUMARATE 300 MG TABLET PO SCH (22:14)
[2017-10-07] MEDS: THIAMINE HCL 100 MG TABLET (FP) PO SCH (22:14)
[2017-10-08] MEDS: chlordiazePOXIDE HCL 10 MG CAPSULE PO SCH ×2 (05:25→10:16)
[2017-10-08] MEDS: INSULIN SLIDING SCALE (NOVOLOG) 1 VIAL SQ SCH (07:22)
[2017-10-08 09:05] VITALS: BP 126/87; PULSE 84; TEMP 96.3
[2017-10-08] MEDS: IBUPROFEN 400 MG TABLET (FP) PO PRN (09:15)
--- NOTE | 2017-10-08 09:48 | PN ---
[facility] Progress Note (SOAP) Subjective: ALERT O X 3. DECREASED ANXIETY,TREMORS. PT CALM IN BED DURING ROUNDS. Objective: 10/08/17 09:47 Vital Signs Temperature 96.3 F L 10/08/17 09:04 Pulse Rate 84 10/08/17 09:04 Respiratory Rate 18 10/08/17 09:04 Blood Pressure 126/87 10/08/17 09:04 O2 Sat by Pulse Oximetry (%) Laboratory Last Values WBC 4.6 K/mm3 (4.0-10.0) 10/04/17 13:15 RBC 3.98 M/mm3 (4.00-5.60) L 10/04/17 13:15 Hgb 11.8 GM/dL (11.7-16.9) 10/04/17 13:15 Hct 35.5 % (35.4-49) 10/04/17 13:15 MCV 89.2 fl (80-96) 10/04/17 13:15 MCH 29.5 pg (25.7-33.7) 10/04/17 13:15 MCHC 33.1 g/dl (32.0-35.9) 10/04/17 13:15 RDW 14.8 % (11.9-15.9) 10/04/17 13:15 Plt Count 165 K/MM3 (134-434) D 10/04/17 13:15 MPV 10.9 fl (7.5-11.1) 10/04/17 13:15 Sodium 146 mmol/L (136-145) H 10/04/17 13:15 Potassium 4.9 mmol/L (3.5-5.1) 10/04/17 13:15 Chloride 108 mmol/L (98-107) H 10/04/17 13:15 Carbon Dioxide 28 mmol/L (21-32) 10/04/17 13:15 Anion Gap 10 (8-16) 10/04/17 13:15 BUN 16 mg/dL (7-18) D 10/04/17 13:15 Creatinine 1.2 mg/dL (0.7-1.3) 10/04/17 13:15 Creat Clearance w eGFR > 60 (>60) 10/04/17 13:15 POC Glucometer 144 UNITS (80-120) 10/08/17 05:25 Random Glucose 98 mg/dL (74-106) 10/04/17 13:15 Calcium 8.9 mg/dL (8.5-10.1) 10/04/17 13:15 Total Bilirubin 0.2 mg/dL (0.2-1.0) D 10/04/17 13:15 AST 31 U/L (15-37) 10/04/17 13:15 ALT 41 U/L (12-78) D 10/04/17 13:15 Alkaline Phosphatase 90 U/L (45-117) D 10/04/17 13:15 Total Protein 7.3 g/dl (6.4-8.2) 10/04/17 13:15 Albumin 3.3 g/dl (3.4-5.0) L 10/04/17 13:15 Urine Color Ltyellow 10/04/17 15:40 Urine Appearance Clear 10/04/17 15:40 Urine pH 6.0 (5.0-8.0) 10/04/17 15:40 Ur Specific [place] 1.014 (1.001-1.035) 10/04/17 15:40 Urine Protein Negative (NEGATIVE) 10/04/17 15:40 Urine Glucose (UA) Negative (NEGATIVE) 10/04/17 15:40 Urine Ketones Negative (NEGATIVE) 10/04/17 15:40 Urine Blood Negative (NEGATIVE) 10/04/17 15:40 Urine Nitrite Negative (NEGATIVE) 10/04/17 15:40 Urine Bilirubin Negative (NEGATIVE) 10/04/17 15:40 Urine Urobilinogen Negative mg/dL (0.2-1.0) 10/04/17 15:40 Ur Leukocyte Esterase Negative (NEGATIVE) 10/04/17 15:40 RPR Titer Nonreactive (NONREACTIVE) 10/04/17 13:15 Assessment: 10/08/17 09:47 WITHDRAWAL SX Plan: CONTINUE DETOX
[2017-10-08] MEDS: ASPIRIN 325 MG TABLET PO SCH (10:15)
[2017-10-08] MEDS: NICOTINE 14 MG/24 HOURS TOPICAL PATCH TD SCH (10:16)
[2017-10-08] MEDS: COLCHICINE 0.6 MG TABLET (FP) PO SCH (10:16)
[2017-10-08] MEDS: SERTRALINE HCL 50 MG TABLET (FP) PO SCH (10:16)
[2017-10-08] MEDS: PRENATAL VITAMINS W/ FOLIC ACID TABLET (FP) PO SCH (10:16)
[2017-10-08] MEDS: METOPROLOL TARTRATE 50 MG TABLET (FP) PO SCH (10:17)
--- NOTE | 2017-10-08 10:48 | DS ---
[facility] Detox Discharge Summary Admission Date: 10/04/17 Discharge Date: 10/08/17 - History Present History: Alcohol Dependence Additional Comments: ALERT O X 3. NAD. DETOX COMPLETED. PT WILL FOLLOW UP WITH PMD FOR MEDICAL MANAGEMENT. Pertinent Past History: SEE DX BELOW - Physical Exam Results Vital Signs: Vital Signs Temperature 96.3 F L 10/08/17 09:04 Pulse Rate 84 10/08/17 09:04 Respiratory Rate 18 10/08/17 09:04 Blood Pressure 126/87 10/08/17 09:04 O2 Sat by Pulse Oximetry (%) Pertinent Admission Physical Exam Findings: WITHDRAWAL SX Vital Signs Temperature 96.3 F L 10/08/17 09:04 Pulse Rate 84 10/08/17 09:04 Respiratory Rate 18 10/08/17 09:04 Blood Pressure 126/87 10/08/17 09:04 O2 Sat by Pulse Oximetry (%) Laboratory Last Values WBC 4.6 K/mm3 (4.0-10.0) 10/04/17 13:15 RBC 3.98 M/mm3 (4.00-5.60) L 10/04/17 13:15 Hgb 11.8 GM/dL (11.7-16.9) 10/04/17 13:15 Hct 35.5 % (35.4-49) 10/04/17 13:15 MCV 89.2 fl (80-96) 10/04/17 13:15 MCH 29.5 pg (25.7-33.7) 10/04/17 13:15 MCHC 33.1 g/dl (32.0-35.9) 10/04/17 13:15 RDW 14.8 % (11.9-15.9) 10/04/17 13:15 Plt Count 165 K/MM3 (134-434) D 10/04/17 13:15 MPV 10.9 fl (7.5-11.1) 10/04/17 13:15 Sodium 146 mmol/L (136-145) H 10/04/17 13:15 Potassium 4.9 mmol/L (3.5-5.1) 10/04/17 13:15 Chloride 108 mmol/L (98-107) H 10/04/17 13:15 Carbon Dioxide 28 mmol/L (21-32) 01/25/18 13:15 Anion Gap 10 (8-16) 10/04/17 13:15 BUN 16 mg/dL (7-18) D 10/04/17 13:15 Creatinine 1.2 mg/dL (0.7-1.3) 10/04/17 13:15 Creat Clearance w eGFR > 60 (>60) 10/04/17 13:15 POC Glucometer 144 UNITS (80-120) 10/08/17 05:25 Random Glucose 98 mg/dL (74-106) 10/04/17 13:15 Calcium 8.9 mg/dL (8.5-10.1) 10/04/17 13:15 Total Bilirubin 0.2 mg/dL (0.2-1.0) D 10/04/17 13:15 AST 31 U/L (15-37) 10/04/17 13:15 ALT 41 U/L (12-78) D 10/04/17 13:15 Alkaline Phosphatase 90 U/L (45-117) D 10/04/17 13:15 Total Protein 7.3 g/dl (6.4-8.2) 10/04/17 13:15 Albumin 3.3 g/dl (3.4-5.0) L 10/04/17 13:15 Urine Color Ltyellow 10/04/17 15:40 Urine Appearance Clear 10/04/17 15:40 Urine pH 6.0 (5.0-8.0) 10/04/17 15:40 Ur Specific [place] 1.014 (1.001-1.035) 10/04/17 15:40 Urine Protein Negative (NEGATIVE) 10/04/17 15:40 Urine Glucose (UA) Negative (NEGATIVE) 10/04/17 15:40 Urine Ketones Negative (NEGATIVE) 10/04/17 15:40 Urine Blood Negative (NEGATIVE) 10/04/17 15:40 Urine Nitrite Negative (NEGATIVE) 10/04/17 15:40 Urine Bilirubin Negative (NEGATIVE) 10/04/17 15:40 Urine Urobilinogen Negative mg/dL (0.2-1.0) 10/04/17 15:40 Ur Leukocyte Esterase Negative (NEGATIVE) 10/04/17 15:40 RPR Titer Nonreactive (NONREACTIVE) 10/04/17 13:15 - Treatment Hospital Course: Detox Protocol Followed, Detoxed Safely, Responded well, Discharged Condition Good - Medication Discharge Medications: Ambulatory Orders Esomeprazole Magnesium 40 mg PO DAILY 06/10/15 Aspirin [ASA -] 325 mg PO DAILY 11/26/15 Atorvastatin Calcium 80 mg PO HS 10/04/17 Colchicine [Colcrys -] 0.6 mg PO DAILY 10/04/17 Metoprolol Tartrate [Lopressor] 100 mg PO BID 10/04/17 Quetiapine Fumarate [Seroquel -] 200 mg PO DAILY 10/04/17 Quetiapine Fumarate [Seroquel -] 400 mg PO HS 10/04/17 Sertraline HCl [Zoloft -] 100 mg PO DAILY 10/04/17 - Diagnosis (1) Alcohol dependence with uncomplicated withdrawal Current Visit: Yes Status: Acute (2) DM (diabetes mellitus), type 2 Current Visit: Yes Status: Chronic Qualifiers: Diabetes mellitus complication status: without complication Diabetes mellitus usp insulin use: without intermodal dispatcher use Qualified Code(s): E11.9 - Type 2 diabetes mellitus without complications (3) Dry eyes, bilateral Current Visit: Yes Status: Chronic (4) GERD (gastroesophageal reflux disease) Current Visit: Yes Status: Chronic Qualifiers: Esophagitis presence: without esophagitis Qualified Code(s): K21.9 - Gastro -esophageal reflux disease without esophagitis (5) Gouty arthritis Current Visit: Yes Status: Chronic (6) HTN (hypertension) Current Visit: Yes Status: Chronic Qualifiers: Hypertension type: essential hypertension Qualified Code(s): I10 - Essential (primary) hypertension (7) Hyperlipidemia Current Visit: Yes Status: Chronic Qualifiers: Hyperlipidemia type: pure hypercholesterolemia Qualified Code(s): E78.00 - Pure hypercholesterolemia, unspecified; E78.0 - Pure hypercholesterolemia (8) Morbid obesity Current Visit: Yes Status: Chronic (9) Nicotine dependence Current Visit: Yes Status: Chronic Qualifiers: Nicotine product type: cigarettes Substance use status: in withdrawal Qualified Code(s): F17.213 - Nicotine dependence, cigarettes, with withdrawal (10) History of sleep apnea Current Visit: Yes Status: Chronic - AMA Did Patient Leave Against Medical Advice: No
== END 2017-10-08 11:32 | disposition home or self-care (01) | DRG 775 ==
LOC: YASAS 08:55 → Y3N 12:28
PROVIDERS: ADMIT Internal Medicine; ATTEND Internal Medicine
PROC: HZ2ZZZZ Detoxification Services for Substance Abuse Treatment (ICD-10-PCS; principal; 2017-10-04)
DX: F10.230 Alcohol dependence with withdrawal, uncomplicated (principal); F17.213 Nicotine dependence, cigarettes, with withdrawal; F33.9 Major depressive disorder, recurrent, unspecified; F20.9 Schizophrenia, unspecified; I10 Essential (primary) hypertension; E11.9 Type 2 diabetes mellitus without complications; H04.123 Dry eye syndrome of bilateral lacrimal glands; K21.9 Gastro-esophageal reflux disease without esophagitis; M10.9 Gout, unspecified; E78.5 Hyperlipidemia, unspecified; R00.0 Tachycardia, unspecified; G47.30 Sleep apnea, unspecified; E66.01 Morbid (severe) obesity due to excess calories; Z68.35 Body mass index [BMI] 35.0-35.9, adult; Z88.8 Allergy status to other drugs, medicaments and biological substances
CPT/HCPCS: 36415; 80053; 81003; 82962; 85027; 86593; 93005; 93010

== ENCOUNTER 2018-01-18 19:17 | Inpatient (IN) | payer OTHER ==
[2018-01-18 21:15] VITALS: BMI 33.7
--- NOTE | 2018-01-19 01:08 | HP ---
Admission [facility] Chief Complaint: Here for rehab Allergies/Adverse Reactions: Allergies Allergy/AdvReac Type Severity Reaction Status Date / Time influenza virus vaccine ts Allergy Intermediate Swelling Verified 10/04/17 11:23 2012- [From Fluarix] pneumococcal vaccine Allergy Mild Swelling Verified 10/04/17 11:23 [Pneumococcal Vaccine] History of Present Illness: Detoxed at [facility] for alcohol disorder. Started drinking at age 14. Was drinking 11 can of beer and 2 pints vodka daily.Discharged on 01/18/18 and arrangements made for admission to [facility] rehab. last alcohol use was 01/13/18. Denies illicit substances. Smokes 1/2 PPD. Hx. HTN, DM, Gout, elevated cholesterol, insomnia, sleep apnea, and depression. Exam Limitations: No Limitations - Ebola screening Have you traveled outside of the country in the last 21 days: No (N) Have you had contact with anyone from an Ebola affected area: No Have you been sick,other than usual withdrawal symptoms: No Do you have a fever: No - Review of Systems Constitutional: Changes in sleep (Difficulty sleeping since 2003. States hx. sleep apnea, but jason not CPAP.) EENT: reports: Other (Hx. dry eyes and used artificial tears daily) Respiratory: reports: No Symptoms reported Cardiac: reports: Other (Hx. HTN on meds. Received meds on 01/[address] [facility].) GI: reports: Other (States hx Peptic ulcer disease and was on protonix. Last used on 01/12/18. Denies abd pain or acid reflux at this time.) : reports: No Symptoms Reported Musculoskeletal: reports: Gout (Hx Gout relieved w/ medications) Integumentary: reports: Other (Pain in (L) hand w/ swelling post blood drawing at [facility].) Neuro: reports: No Symptoms reported Endocrine: reports: Other (Hs. DM Currently on Metformin 500 mg BID.) Hematology: reports: No Symptoms Reported Psychiatric: reports: Depressed (Hx. depression on medications. Denies thoughts of suicide or violent ideation.) Patient History - Patient Medical History Hx Anemia: No Hx Asthma: No Hx Chronic Obstructive Pulmonary Disease (COPD): No Hx Cancer: No Hx Cardiac Disorders: No Hx Congestive Heart Failure: No Hx Hypertension: Yes (Pt is on meds.) Hx Hypercholesterolemia: Yes (ON MED) Hx Pacemaker: No Hx Seizures: No Hx Dementia: No Hx Diabetes: Yes (Type II Taking metformin.) Hx Gastrointestinal Disorders: Yes (Pt has a hx of GERD-PROTONIX IN THE PAST.) Hx Liver Disease: No Hx Genitourinary Disorders: No Hx Sexually Transmitted Disorders: No Hx Renal Disease (ESRD): No Hx Thyroid Disease: No Hx Human Immunodeficiency Virus (HIV): No (NEGATIVE HX) Hx Hepatitis C: No Hx Depression: Yes (ON MED) Hx Suicide Attempt: No (DENIES) Hx Bipolar Disorder: No Hx Schizophrenia: No - Patient Surgical History Past Surgical History: No Hx Neurologic Surgery: No Hx Cataract Extraction: No Hx Cardiac Surgery: No Hx Lung Surgery: No Hx Breast Surgery: No Hx Breast Biopsy: No Hx Abdominal Surgery: No Hx Appendectomy: No Hx Cholecystectomy: No Hx Genitourinary Surgery: No Hx Section: No Hx Orthopedic Surgery: No Anesthesia Reaction: No - PPD History Date: 10/06/17 (TB Gold done @[facility] on 01/13/11) Results: 0 mm PPD to be Administered?: No - Smoking Cessation Smoking history: Current every day smoker Have you smoked in the past 12 months: Yes Aproximately how many cigarettes per day: 6 Cigars Per Day: 0 Hx Chewing Tobacco Use: No Initiated information on smoking cessation: Yes 'Breaking Loose' booklet given: 01/19/18 - Substance & Tx. History Hx Alcohol Use: Yes Hx Substance Use: No Substance Use Type: Alcohol Hx Substance Use Treatment: Yes ([facility] and [facility] detox) Family Disease History - Family Disease History Family Disease History: Other: Father (alcohol,), Mother (), Brother (alcohol) Admission Physical Exam [facility] - Vital Signs Vital Signs: Vital Signs - 24 hr 01/18/18 21:13 Temperature 98.5 F Pulse Rate 90 Respiratory 23 Rate Blood Pressure 156/92 - Physical General Appearance: Yes: No Apparent Distress, Appropriately Dressed HEENTM: Yes: EOMI, Normal Voice, GRACIELA, Other (Mild erythema sclera. Conjunctiva wnl. No exudate.) Respiratory: Yes: Lungs Clear, Normal Breath Sounds Neck: Yes: No masses,lesions,Nodules Breast: Yes: Breast Exam Deferred Cardiology: Yes: Regular Rhythm, Regular Rate, S1, S2 Abdominal: Yes: Normal Bowel Sounds, Non Tender, Soft Genitourinary: Yes: Within Normal Limits Back: Yes: Normal Inspection Musculoskeletal: Yes: Gait Steady Extremities: Yes: Normal Capillary Refill, Swelling (Edema (L) hand and fingers x 2 days after blood draw at [facility] with tenderness upon slight palpation. Radial pulse present.) 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: Fully Oriented, Normal Response Integumentary: Yes: Dry - Diagnostic (1) DM (diabetes mellitus), type 2 Current Visit: No Status: Chronic Qualifiers: Diabetes mellitus nursing home insulin use: without catering server use Diabetes mellitus complication status: without complication Qualified Code(s): E11.9 - Type 2 diabetes mellitus without complications (2) Dry eyes, bilateral Current Visit: Yes Status: Chronic (3) GERD (gastroesophageal reflux disease) Current Visit: Yes Status: Chronic Qualifiers: Esophagitis presence: without esophagitis Qualified Code(s): K21.9 - Gastro -esophageal reflux disease without esophagitis (4) Gouty arthritis Current Visit: Yes Status: Chronic (5) HTN (hypertension) Current Visit: Yes Status: Chronic Qualifiers: Hypertension type: essential hypertension Qualified Code(s): I10 - Essential (primary) hypertension (6) History of sleep apnea Current Visit: No Status: Chronic (7) Hyperlipidemia Current Visit: Yes Status: Chronic Qualifiers: Hyperlipidemia type: unspecified Qualified Code(s): E78.5 - Hyperlipidemia , unspecified (8) MDD (major depressive disorder) Current Visit: Yes Status: Chronic Qualifiers: Major depression episode severity: unspecified Comment: Self reports. (9) Morbid obesity Current Visit: Yes Status: Chronic (10) Nicotine dependence Current Visit: Yes Status: Chronic Qualifiers: Nicotine product type: cigarettes Substance use status: uncomplicated Qualified Code(s): F17.210 - Nicotine dependence, cigarettes, uncomplicated (11) Swelling of left hand Current Visit: Yes Status: Acute (12) History of alcohol use disorder Current Visit: Yes Status: Chronic Cleared for Admission S - Detox or Rehab [facility] Level of Care: Medically Managed Claeared for Rehab Admission: Yes [facility] Breath Alcohol Content Breath Alcohol Content: 0 Urine Drug Screen - Results Drug Screen Negative: Yes Urine Drug Screen Results: BZO-Benzodiazepines Inpatient Rehab Admission - Initial Determination Are CD services needed?: Yes Free of communicable disease: Yes Not in need of hospitalization: Yes - Rehab Admission Criteria Previous failed treatment: Yes Poor recovery environment: Yes Comorbidities: Yes Lacks judgement: Yes Patient is meeting Inpatient Rehab admission criteria:: Yes
[2018-01-19] MEDS ORDERED: LOPERAMIDE HCL 2 MG CAPSULE PO PRN (01:38)
[2018-01-19] MEDS ORDERED: NICOTINE POLACRILEX 2 MG GUM BC PRN (01:38)
[2018-01-19] MEDS ORDERED: MENTHOL/PHENOL 1 EACH UD MM PRN (01:38)
[2018-01-19] MEDS ORDERED: hydrOXYzine PAMOATE 50 MG CAPSULE (FP) PO PRN (01:38)
[2018-01-19] MEDS ORDERED: guaiFENesin/D-METHORPHAN HB 10 ML UNIT-DOSE CUPS PO PRN (01:38)
[2018-01-19] MEDS ORDERED: MAGNESIUM HYDROX 2400MG/30ML ORAL SUSPENSION 30 ML CUP PO PRN (01:38)
[2018-01-19] MEDS ORDERED: MAG HYDROX/AL HYDROX/SIMETH 30 ML UNIT-DOSE CUP PO PRN (01:38)
[2018-01-19] MEDS ORDERED: MAGNESIUM CITRATE 300 ML BOTTLE PO PRN (01:38)
[2018-01-19] MEDS ORDERED: P-EPHED 60MG/TRIPROLIDI 2.5MG TABLET PO PRN (01:38)
[2018-01-19] MEDS ORDERED: AMMONIUM LACTATE 12% LOTION 225 GM BOTTLE TP PRN (01:50)
[2018-01-19] MEDS ORDERED: ARTIFICIAL TEARS (POLYVINYL ALCOHOL 1.4%) OPTH DROPS OU PRN (01:53)
[2018-01-19] MEDS: IBUPROFEN 400 MG TABLET (FP) PO PRN ×3 (03:06→21:47)
[2018-01-19] MEDS: metFORMIN HCL 500 MG TABLET (FP) PO SCH ×2 (06:52→17:17)
[2018-01-19] MEDS: ACETAMINOPHEN 325 MG TABLET (FP) PO PRN ×3 (06:53→23:40)
--- NOTE | 2018-01-19 08:24 | EKG ---
Test Reason : Blood Pressure : / mmHG Vent. Rate : 099 BPM Atrial Rate : 099 BPM P-R Int : 164 ms QRS Dur : 072 ms QT Int : 360 ms P-R-T Axes : 050 006 043 degrees QTc Int : 462 ms NORMAL SINUS RHYTHM NONSPECIFIC T WAVE ABNORMALITY PROLONGED QT ABNORMAL ECG WHEN COMPARED WITH ECG OF 04-OCT-2017 14:01, NO SIGNIFICANT CHANGE WAS FOUND Confirmed by ALPHONSE SIDHU, KAYCEE ([id number]) on 01/19/2018 8:23:42 AM Referred By: Confirmed By:KAYCEE CUNHA MD
[2018-01-19] MEDS: ASPIRIN 325 MG TABLET PO SCH (09:15)
[2018-01-19] MEDS: PANTOPRAZOLE 40 MG TABLET (FP) PO SCH (09:15)
[2018-01-19] MEDS: PRENATAL VITAMINS W/ FOLIC ACID TABLET (FP) PO SCH (09:15)
[2018-01-19] MEDS: NICOTINE 14 MG/24 HOURS TOPICAL PATCH TD SCH (09:16)
[2018-01-19] MEDS ORDERED: PT OWN MED DRAWER 7, Y5N ONE (09:17)
[2018-01-19] MEDS ORDERED: METOPROLOL TARTRATE 50 MG TABLET (FP) PO SCH (10:00)
[2018-01-19] MEDS ORDERED: COLCHICINE 0.6 MG TABLET (FP) PO SCH (10:00)
[2018-01-19] MEDS: INDOMETHACIN 50 MG CAPSULE PO SCH ×2 (10:03→21:45)
[2018-01-19 10:58] LABS: HEMATOCRIT 35.1 % (35.4-49); HEMOGLOBIN 12.3 GM/dL (11.7-16.9); MCH 31.3 pg (25.7-33.7); MEAN CELL VOLUME 89.4 fl (80-96); MEAN PLT VOLUME 11.1 fl (7.5-11.1); PLATELET COUNT 125 K/MM3 (134-434); RBC 3.93 M/mm3 (4.00-5.60); RDW 15.4 % (11.9-15.9); WHITE BLOOD COUNT 6.3 K/mm3 (4.0-10.0)
[2018-01-19 11:09] LABS: CHLORIDE 108 mmol/L (98-107); POTASSIUM 3.9 mmol/L (3.5-5.1); SODIUM 143 mmol/L (136-145)
[2018-01-19 11:29] LABS: ALBUMIN 3.3 g/dl (3.4-5.0); ALK PHOS 66 U/L (45-117); ANION GAP 8 (8-16); BILIRUBIN,TOTAL 0.3 mg/dL (0.2-1.0); BLOOD UREA NITROGEN 12 mg/dL (7-18); CALCIUM 8.8 mg/dL (8.5-10.1); CO2 27 mmol/L (21-32); CREATININE 0.9 mg/dL (0.7-1.3); GLUCOSE,RANDOM 93 mg/dL (74-106); SGOT/AST 42 U/L (15-37); SGPT/ALT 37 U/L (12-78); TOT PROT 6.8 g/dl (6.4-8.2)
--- NOTE | 2018-01-19 13:49 | PN ---
[facility] Progress Note Note: Psychiatrist etl consultant note: Called by nursing staff to order medication for newly admitted patient from [facility] on 01/19/18. Medication reconciliation not done as per home medication list because it grossly conflicts with patient's previous prescriptions. On 2 previous recent admissions in this facility(Jul 2017 on 3W & Sep 2017 detox) patient was prescribed Zoloft 150 mg po daily & Seroquel 300 mg po HS. Stoker Erector talked to patient on the phone, he does know the name of his medications but he is not sure of the dosage. Medications will be order as per previous recent admissions( Zoloft 150 mg/day & Seroquel 300 mg/hs)
[2018-01-19] MEDS: SERTRALINE HCL 50 MG TABLET (FP) PO SCH (14:46)
--- NOTE | 2018-01-19 15:38 | EKG ---
Test Reason : Blood Pressure : / mmHG Vent. Rate : 102 BPM Atrial Rate : 102 BPM P-R Int : 172 ms QRS Dur : 066 ms QT Int : 352 ms P-R-T Axes : 062 009 031 degrees QTc Int : 458 ms SINUS TACHYCARDIA NONSPECIFIC T WAVE ABNORMALITY ABNORMAL ECG WHEN COMPARED WITH ECG OF 19-JAN-2018 03:18, NO SIGNIFICANT CHANGE WAS FOUND Confirmed by KAYCEE CUNHA MD ([id number]) on 01/19/2018 3:37:59 PM Referred By: Confirmed By:KAYCEE CUNHA MD
[2018-01-19] MEDS: QUEtiapine FUMARATE 200 MG TABLET PO SCH (21:45)
[2018-01-19] MEDS: ATORVASTATIN CA 80 MG TABLET (FP) PO SCH (21:45)
[2018-01-19] MEDS: METOPROLOL TARTRATE 25 MG TABLET (FP) PO SCH (21:46)
[2018-01-19] MEDS: THIAMINE HCL 100 MG TABLET (FP) PO SCH (21:47)
[2018-01-19] MEDS ORDERED: MELATONIN 5 MG TABLETS PO PRN (22:00)
[2018-01-20] MEDS: metFORMIN HCL 500 MG TABLET (FP) PO SCH ×2 (06:22→17:34)
[2018-01-20] MEDS: SERTRALINE HCL 50 MG TABLET (FP) PO SCH (10:43)
[2018-01-20] MEDS: PRENATAL VITAMINS W/ FOLIC ACID TABLET (FP) PO SCH (10:43)
[2018-01-20] MEDS: PANTOPRAZOLE 40 MG TABLET (FP) PO SCH (10:43)
[2018-01-20] MEDS: ASPIRIN 325 MG TABLET PO SCH (10:43)
[2018-01-20] MEDS: INDOMETHACIN 50 MG CAPSULE PO SCH ×2 (10:43→21:11)
[2018-01-20] MEDS: NICOTINE 14 MG/24 HOURS TOPICAL PATCH TD SCH (10:44)
[2018-01-20] MEDS: IBUPROFEN 400 MG TABLET (FP) PO PRN ×2 (10:46→21:11)
[2018-01-20] MEDS: METOPROLOL TARTRATE 25 MG TABLET (FP) PO SCH ×2 (11:00→21:11)
--- NOTE | 2018-01-20 13:27 | EKG ---
Test Reason : Blood Pressure : / mmHG Vent. Rate : 090 BPM Atrial Rate : 090 BPM P-R Int : 178 ms QRS Dur : 076 ms QT Int : 368 ms P-R-T Axes : 050 007 017 degrees QTc Int : 450 ms NORMAL SINUS RHYTHM NONSPECIFIC ST AND T WAVE ABNORMALITY ABNORMAL ECG WHEN COMPARED WITH ECG OF 19-JAN-2018 09:35, NO SIGNIFICANT CHANGE WAS FOUND Confirmed by KAYCEE CUNHA MD ([id number]) on 01/20/2018 1:27:17 PM Referred By: Confirmed By:KAYCEE CUNHA MD
[2018-01-20] MEDS: THIAMINE HCL 100 MG TABLET (FP) PO SCH (21:10)
[2018-01-20] MEDS: QUEtiapine FUMARATE 200 MG TABLET PO SCH (21:11)
[2018-01-20] MEDS: ATORVASTATIN CA 80 MG TABLET (FP) PO SCH (21:11)
[2018-01-20] MEDS: ACETAMINOPHEN 325 MG TABLET (FP) PO PRN (23:19)
[2018-01-21] MEDS: IBUPROFEN 400 MG TABLET (FP) PO PRN ×3 (03:13→17:28)
--- NOTE | 2018-01-21 06:26 | HP ---
Psychiatrist Admission - Data Date of interview: 01/21/18 Admission source: [facility] detox Identifying data: This is one of the multiple [facility] admission for this 52 years old single Black male, unemployed on SSI, domiciled Medical History: Significant for hypertension, dyslipidemia, diabetes mellitus, GERD, gout and sleep apnea, obesity Smoke 6 cigarettes daily Psychiatric History: Patient is a poor historian whose different historical accounts over several admissions in this facility lack consistency. Now reports that he was diagnosed with depression in 2003, not sure if it was inpatient or outpatient. Reports Multiple previous admissions to various institutions including to [facility], [place], [facility]/[place], [place]. He has no recollection of date and location of most recent one, though he told PNP [facility] in September 2017 it was at [facility] in 2015. Told junior underwriter that he currently gets OPD care at [facility] where he has been attending for the past 6 month. However he clams that he has not seen the staff psychiatrist there yet and gets his medications prescribed by his primary care physician. Reports taking Zoloft(dosage unknown) and seroquel 200 mg daily & 400 mg HS. Denies previous suicidal attempt. However it was reported in admission in rehab in 2004 that he had a suicidal attempt as a teenager. At present, reports feeling well but sleeping poorly without medication. Denies experiencing psychotic, manic or depressive symptoms, S/H ideations Physical/Sexual Abuse/Trauma History: Denies history of emotional, physical or sexual abuse s well as DV relationship Additional Comment: Reports history of 5 previous misdemeanor arrests on charges of drinking in public. Denies being on probation Vital Signs: Vital Signs - 24 hr 01/20/18 01/20/18 01/20/18 06:40 11:02 22:00 Temperature 97.9 F 97.8 F Pulse Rate 93 H 95 H 90 Respiratory 20 20 Rate Blood Pressure 119/82 118/69 146/96 01/21/18 00:30 Temperature Pulse Rate Respiratory 18 Rate Blood Pressure Allergies/Adverse Reactions: Allergies Allergy/AdvReac Type Severity Reaction Status Date / Time influenza virus vaccine ts Allergy Intermediate Swelling Verified 01/19/18 01:53 2012- [From Fluarix] pneumococcal vaccine Allergy Mild Swelling Verified 01/19/18 01:53 [Pneumococcal Vaccine] Date of last physical exam: 01/19/18 Concur with the findings of this exam: Yes - Substance Abuse/Tx History Hx Alcohol Use: Yes Hx Substance Use: No Substance Use Type: Alcohol (Started drinking alcohol at age 14, cnsumes 2 pints of vodka & 11 cans of beer daily. Last drank on 01/13/18) Mental Status Exam - Mental Status Exam Alert and Oriented to: Time, Person Cognitive Function: Fair Patient Appearance: Well Groomed Mood: Hopeful, Euthymic Patient Behavior: Cooperative Speech Pattern: Clear Voice Loudness: Normal Thought Process: Intact, Goal Oriented Thought Disorder: Not Present Hallucinations: Denies Suicidal Ideation: Denies Homicidal Ideation: Denies Insight/Judgement: Fair Sleep: Poorly Appetite: Good Muscle strength/Tone: Normal Gait/Station: Normal Psychiatric Findings - Problem List ([place] 1, 2,3) (1) Alcohol dependence Current Visit: No Status: Acute (2) Nicotine dependence Current Visit: Yes Status: Chronic Qualifiers: Nicotine product type: cigarettes Substance use status: uncomplicated Qualified Code(s): F17.210 - Nicotine dependence, cigarettes, uncomplicated (3) Schizoaffective disorder Current Visit: Yes Status: Chronic (4) Severe episode of recurrent major depressive disorder, without psychotic features Current Visit: Yes Status: Ruled-out (5) Paranoid schizophrenia Current Visit: Yes Status: Ruled-out (6) Alcohol-induced sleep disorder Current Visit: Yes Status: Acute (7) GERD (gastroesophageal reflux disease) Current Visit: Yes Status: Chronic Qualifiers: Esophagitis presence: without esophagitis Qualified Code(s): K21.9 - Gastro -esophageal reflux disease without esophagitis (8) Gouty arthritis Current Visit: Yes Status: Chronic (9) HTN (hypertension) Current Visit: Yes Status: Chronic Qualifiers: Hypertension type: essential hypertension Qualified Code(s): I10 - Essential (primary) hypertension (10) Hyperlipidemia Current Visit: Yes Status: Chronic Qualifiers: Hyperlipidemia type: unspecified Qualified Code(s): E78.5 - Hyperlipidemia , unspecified (11) Morbid obesity Current Visit: Yes Status: Chronic (12) DM (diabetes mellitus), type 2 Current Visit: No Status: Chronic Qualifiers: Diabetes mellitus usp insulin use: without usp use Diabetes mellitus complication status: without complication Qualified Code(s): E11.9 - Type 2 diabetes mellitus without complications (13) Sleep apnea Current Visit: No Status: Chronic - Initial Treatment Plan Initial Treatment Plan: 1) Start Zoloft 150 mg po daily & Seroquel 300 mg po HS. 2) Monitor progress
[2018-01-21] MEDS: metFORMIN HCL 500 MG TABLET (FP) PO SCH ×2 (06:30→17:26)
[2018-01-21] MEDS: ACETAMINOPHEN 325 MG TABLET (FP) PO PRN ×2 (06:30→21:16)
[2018-01-21] MEDS: NICOTINE 14 MG/24 HOURS TOPICAL PATCH TD SCH (09:54)
[2018-01-21] MEDS: PANTOPRAZOLE 40 MG TABLET (FP) PO SCH (09:54)
[2018-01-21] MEDS: PRENATAL VITAMINS W/ FOLIC ACID TABLET (FP) PO SCH (09:54)
[2018-01-21] MEDS: INDOMETHACIN 50 MG CAPSULE PO SCH (09:54)
[2018-01-21] MEDS: SERTRALINE HCL 50 MG TABLET (FP) PO SCH (09:54)
[2018-01-21] MEDS: ASPIRIN 325 MG TABLET PO SCH (09:54)
[2018-01-21] MEDS: METOPROLOL TARTRATE 25 MG TABLET (FP) PO SCH ×2 (10:28→21:12)
[2018-01-21 18:14] LABS: URINE APPEARANCE CLEAR; URINE BILIRUBIN NEGATIVE (<2.0 mg/dL); URINE COLOR YELLOW; URINE GLUCOSE (UA) NEGATIVE (NEGATIVE); URINE KETONE NEGATIVE (NEGATIVE); URINE LEUK ESTERASE NEGATIVE (NEGATIVE); URINE NITRITE NEGATIVE (NEGATIVE); URINE PROTEIN NEGATIVE (NEGATIVE); URINE UROBILINOGEN NEGATIVE mg/dL (0.2-1.0)
[2018-01-21] MEDS: ATORVASTATIN CA 80 MG TABLET (FP) PO SCH (21:12)
[2018-01-21] MEDS: THIAMINE HCL 100 MG TABLET (FP) PO SCH (21:13)
[2018-01-21] MEDS: QUEtiapine FUMARATE 200 MG TABLET PO SCH (21:14)
[2018-01-22] MEDS: IBUPROFEN 400 MG TABLET (FP) PO PRN ×2 (03:27→09:51)
[2018-01-22] MEDS: metFORMIN HCL 500 MG TABLET (FP) PO SCH ×2 (06:59→17:15)
[2018-01-22] MEDS: PANTOPRAZOLE 40 MG TABLET (FP) PO SCH (09:48)
[2018-01-22] MEDS: METOPROLOL TARTRATE 25 MG TABLET (FP) PO SCH (09:48)
[2018-01-22] MEDS: ASPIRIN 325 MG TABLET PO SCH (09:48)
[2018-01-22] MEDS: NICOTINE 14 MG/24 HOURS TOPICAL PATCH TD SCH (09:48)
[2018-01-22] MEDS: PRENATAL VITAMINS W/ FOLIC ACID TABLET (FP) PO SCH (09:48)
[2018-01-22] MEDS: SERTRALINE HCL 50 MG TABLET (FP) PO SCH (09:48)
[2018-01-22] MEDS: ACETAMINOPHEN 325 MG TABLET (FP) PO PRN ×2 (15:13→19:51)
--- NOTE | 2018-01-22 16:10 | PN ---
[facility] Progress Note Note: Patient w/ past hx of gout c/o of left hand swelling. Denies swelling in any other swelling. As per patient this had happen before and was a result of gout attack. Reports no relief with Ibuprofen 800mg TID, at home he take Indocin 50mg BID and top lidocaine patch which relieves his pain. Denies SOB, CP, vertigo or paresthesia. Vital Signs Temperature 98.3 F 01/22/18 06:41 Pulse Rate 92 H 01/22/18 10:00 Respiratory Rate 18 01/22/18 10:00 Blood Pressure 125/79 01/22/18 10:00 O2 Sat by Pulse Oximetry (%) Laboratory Last Values WBC 6.3 K/mm3 (4.0-10.0) D 01/19/18 10:00 RBC 3.93 M/mm3 (4.00-5.60) L 01/19/18 10:00 Hgb 12.3 GM/dL (11.7-16.9) 01/19/18 10:00 Hct 35.1 % (35.4-49) L 01/19/18 10:00 MCV 89.4 fl (80-96) 01/19/18 10:00 MCH 31.3 pg (25.7-33.7) 01/19/18 10:00 MCHC 35.0 g/dl (32.0-35.9) 01/19/18 10:00 RDW 15.4 % (11.9-15.9) 01/19/18 10:00 Plt Count 125 K/MM3 (134-434) L D 01/19/18 10:00 MPV 11.1 fl (7.5-11.1) 01/19/18 10:00 Sodium 143 mmol/L (136-145) 01/19/18 10:00 Potassium 3.9 mmol/L (3.5-5.1) D 01/19/18 10:00 Chloride 108 mmol/L (98-107) H 01/19/18 10:00 Carbon Dioxide 27 mmol/L (21-32) 01/19/18 10:00 Anion Gap 8 (8-16) 01/19/18 10:00 BUN 12 mg/dL (7-18) D 01/19/18 10:00 Creatinine 0.9 mg/dL (0.7-1.3) D 01/19/18 10:00 Creat Clearance w eGFR > 60 (>60) 01/19/18 10:00 POC Glucometer 156 UNITS (80-120) 01/21/18 17:25 Random Glucose 93 mg/dL (74-106) 01/19/18 10:00 Calcium 8.8 mg/dL (8.5-10.1) 01/19/18 10:00 Total Bilirubin 0.3 mg/dL (0.2-1.0) D 01/19/18 10:00 AST 42 U/L (15-37) H D 01/19/18 10:00 ALT 37 U/L (12-78) 01/19/18 10:00 Alkaline Phosphatase 66 U/L (45-117) D 01/19/18 10:00 Total Protein 6.8 g/dl (6.4-8.2) 01/19/18 10:00 Albumin 3.3 g/dl (3.4-5.0) L 01/19/18 10:00 Urine Color Yellow 01/21/18 15:35 Urine Appearance Clear 01/21/18 15:35 Urine pH 5.0 (5.0-8.0) 01/21/18 15:35 Ur Specific [place] 1.023 (1.001-1.035) 01/21/18 15:35 Urine Protein Negative (NEGATIVE) 01/21/18 15:35 Urine Glucose (UA) Negative (NEGATIVE) 01/21/18 15:35 Urine Ketones Negative (NEGATIVE) 01/21/18 15:35 Urine Blood Negative (NEGATIVE) 01/21/18 15:35 Urine Nitrite Negative (NEGATIVE) 01/21/18 15:35 Urine Bilirubin Negative (<2.0 mg/dL) 01/21/18 15:35 Urine Urobilinogen Negative mg/dL (0.2-1.0) 01/21/18 15:35 Ur Leukocyte Esterase Negative (NEGATIVE) 01/21/18 15:35 RPR Titer Nonreactive (NONREACTIVE) 01/19/18 10:00 A/P Patient AOx3 in no apparent distress No adventitious breath sounds + edema and tenderness on the left hand Skin intact, pulses present Ambulating in the unti, gait unsteady Plan: Increase fluids d/c ibuprofen 800 mg TID , start Indocin 50 mg BID and TOP lidocaine patch Cold compress PRN x-ray left hand CBC, CMP and uric acid cane for ambulation fall precautions Continue to monitor for worsening symptoms
[2018-01-22] MEDS: LIDOCAINE 5% TOPICAL PATCH TP SCH (17:15)
[2018-01-22] MEDS: THIAMINE HCL 100 MG TABLET (FP) PO SCH (22:02)
[2018-01-22] MEDS: ATORVASTATIN CA 80 MG TABLET (FP) PO SCH (22:03)
[2018-01-22] MEDS: LIDOCAINE PATCH REMOVAL MC SCH (22:03)
[2018-01-22] MEDS: METOPROLOL TARTRATE 50 MG TABLET (FP) PO SCH (22:03)
[2018-01-22] MEDS: INDOMETHACIN 50 MG CAPSULE PO SCH (22:03)
[2018-01-22] MEDS: QUEtiapine FUMARATE 200 MG TABLET PO SCH (22:04)
[2018-01-23] MEDS: ACETAMINOPHEN 325 MG TABLET (FP) PO PRN ×3 (00:55→21:27)
[2018-01-23] MEDS: metFORMIN HCL 500 MG TABLET (FP) PO SCH ×2 (06:31→17:08)
[2018-01-23 06:47] VITALS: TEMP 98.1
[2018-01-23] MEDS: PRENATAL VITAMINS W/ FOLIC ACID TABLET (FP) PO SCH (10:58)
[2018-01-23] MEDS: NICOTINE 14 MG/24 HOURS TOPICAL PATCH TD SCH (10:58)
[2018-01-23] MEDS: PANTOPRAZOLE 40 MG TABLET (FP) PO SCH (10:58)
[2018-01-23] MEDS: SERTRALINE HCL 50 MG TABLET (FP) PO SCH (10:58)
[2018-01-23] MEDS: INDOMETHACIN 50 MG CAPSULE PO SCH ×2 (10:58→21:24)
[2018-01-23] MEDS: ASPIRIN 325 MG TABLET PO SCH (10:58)
[2018-01-23] MEDS: METOPROLOL TARTRATE 50 MG TABLET (FP) PO SCH ×2 (10:59→22:11)
[2018-01-23] MEDS: LIDOCAINE 5% TOPICAL PATCH TP SCH (11:00)
[2018-01-23 16:19] LABS: BASO % 0.7 % (0-2.0); EOS % 2.5 % (0-4.5); HEMATOCRIT 31.7 % (35.4-49); HEMOGLOBIN 10.7 GM/dL (11.7-16.9); LYMPH % 16.2 % (8-40); MCH 30.1 pg (25.7-33.7); MCHC 33.7 g/dl (32.0-35.9); MEAN CELL VOLUME 89.1 fl (80-96); MEAN PLT VOLUME 10.7 fl (7.5-11.1); MONO % 9.9 % (3.8-10.2); NEUT % 70.7 % (42.8-82.8); PLATELET COUNT 162 K/MM3 (134-434); RBC 3.56 M/mm3 (4.00-5.60); WHITE BLOOD COUNT 5.1 K/mm3 (4.0-10.0)
[2018-01-23 16:33] LABS: CHLORIDE 107 mmol/L (98-107); POTASSIUM 3.5 mmol/L (3.5-5.1); SODIUM 143 mmol/L (136-145)
[2018-01-23] MEDS ORDERED: TUBERCULIN PPD 5 TU/0.1ML VIAL ID ONE (16:46)
[2018-01-23 16:51] LABS: ALBUMIN 2.9 g/dl (3.4-5.0); ALK PHOS 61 U/L (45-117); ANION GAP 10 (8-16); BILIRUBIN,TOTAL 0.9 mg/dL (0.2-1.0); BLOOD UREA NITROGEN 12 mg/dL (7-18); CALCIUM 8.5 mg/dL (8.5-10.1); CO2 26 mmol/L (21-32); GLUCOSE,RANDOM 157 mg/dL (74-106); SGOT/AST 17 U/L (15-37); SGPT/ALT 20 U/L (12-78); TOT PROT 6.3 g/dl (6.4-8.2); URIC ACID 8.2 mg/dL (2.6-7.2)
[2018-01-23] MEDS: QUEtiapine FUMARATE 200 MG TABLET PO SCH (21:24)
[2018-01-23] MEDS: LIDOCAINE PATCH REMOVAL MC SCH (21:24)
[2018-01-23] MEDS: THIAMINE HCL 100 MG TABLET (FP) PO SCH (21:24)
[2018-01-23] MEDS: ATORVASTATIN CA 80 MG TABLET (FP) PO SCH (21:24)
[2018-01-23] MEDS ORDERED: PT OWN MED DRAWER 7, Y5N ONE (21:25)
[2018-01-24] MEDS: metFORMIN HCL 500 MG TABLET (FP) PO SCH (06:26)
[2018-01-24] MEDS: ACETAMINOPHEN 325 MG TABLET (FP) PO PRN (08:07)
[2018-01-24 09:22] VITALS: BP 140/88; PULSE 85
[2018-01-24] MEDS: NICOTINE 14 MG/24 HOURS TOPICAL PATCH TD SCH (09:54)
[2018-01-24] MEDS: PANTOPRAZOLE 40 MG TABLET (FP) PO SCH (09:54)
[2018-01-24] MEDS: INDOMETHACIN 50 MG CAPSULE PO SCH (09:54)
[2018-01-24] MEDS: SERTRALINE HCL 50 MG TABLET (FP) PO SCH (09:54)
[2018-01-24] MEDS: PRENATAL VITAMINS W/ FOLIC ACID TABLET (FP) PO SCH (09:54)
[2018-01-24] MEDS: LIDOCAINE 5% TOPICAL PATCH TP SCH (09:55)
[2018-01-24] MEDS: ASPIRIN 325 MG TABLET PO SCH (09:55)
[2018-01-24] MEDS: METOPROLOL TARTRATE 50 MG TABLET (FP) PO SCH (10:11)
[2018-01-24] MEDS ORDERED: PT OWN MED DRAWER 7, Y5N ONE (12:58)
--- NOTE | 2018-01-24 13:36 | PN ---
S Progress Note Note: Patient refuse to continue rehab tx, reports will continue at [facility]. Patient advise to follow up with primary care provider upon discharge.
== END 2018-01-24 13:18 | disposition left against medical advice (07) | DRG 58 ==
LOC: YASAS 19:17 → Y3W 23:37
PROVIDERS: ADMIT Psychiatry & Neurology Psychiatry; ATTEND Psychiatry & Neurology Psychiatry
PROC: HZ42ZZZ Group Counseling for Substance Abuse Treatment, Cognitive-Behavioral (ICD-10-PCS; principal; 2018-01-18)
DX: F10.282 Alcohol dependence with alcohol-induced sleep disorder (principal); F17.210 Nicotine dependence, cigarettes, uncomplicated; F25.9 Schizoaffective disorder, unspecified; F20.0 Paranoid schizophrenia; F33.2 Major depressive disorder, recurrent severe without psychotic features; I10 Essential (primary) hypertension; E11.9 Type 2 diabetes mellitus without complications; E78.5 Hyperlipidemia, unspecified; M1A.9XX0 Chronic gout, unspecified, without tophus (tophi); K21.9 Gastro-esophageal reflux disease without esophagitis; M79.89 Other specified soft tissue disorders; G47.30 Sleep apnea, unspecified; H04.129 Dry eye syndrome of unspecified lacrimal gland; E66.01 Morbid (severe) obesity due to excess calories; Z68.33 Body mass index [BMI] 33.0-33.9, adult; Z79.84 Long term (current) use of oral hypoglycemic drugs; Z88.8 Allergy status to other drugs, medicaments and biological substances
CPT/HCPCS: 36415; 73110-TC-LR-FY; 73130-TC-LR-FY; 80053; 81003; 82962; 84550; 85025; 85027; 86593; 93005; 93010

== ENCOUNTER 2018-04-25 09:19 | Inpatient (IN) | payer OTHER ==
[2018-04-25 10:58] VITALS: BMI 36.6
--- NOTE | 2018-04-25 13:21 | HP ---
CIWA Score - CIWA Score Nausea/Vomitin Muscle Tremors: 3 Anxiety: 3 Agitation: 3 Paroxysmal Sweats: 1-Minimal Palms Moist Orientation: 0-Oriented Tacttile Disturbances: 1-Very Mild Itch/Numbness Auditory Disturbances: 1-Very Mild Visual Disturbances: 0-None Headache: 2-Mild CIWA-Ar Total Score: 17 Admission ROS [facility] - HPI Chief Complaint: i nee help to stop drinking alcohol Allergies/Adverse Reactions: Allergies Allergy/AdvReac Type Severity Reaction Status Date / Time influenza virus vaccine ts Allergy Severe Swelling Verified 04/25/18 11:54 [From Fluarix] pneumococcal vaccine Allergy Severe Swelling Verified 04/25/18 11:54 [Pneumococcal Vaccine] History of Present Illness: this 52 years old male with alcohol dependence,seeking detox,withdrawal symptom, last treatment [facility] 01/18/18 to 01/25/18 seen in [facility] last night refer for detox syncope multiple medical problem htn,type 2 dm, schizophrenia,depression longest period of sobriety 3 months history of gout nicotine dependence multiple admissions in detox but keep relapsing Exam Limitations: No Limitations - Ebola screening Have you traveled outside of the country in the last 21 days: No Have you been sick,other than usual withdrawal symptoms: No - Review of Systems Constitutional: Loss of Appetite, Night Sweats, Changes in sleep, Weakness EENT: reports: Nose Congestion Respiratory: reports: No Symptoms reported Cardiac: reports: No Symptoms Reported GI: reports: Nausea, Poor Appetite, Abdominal cramping : reports: No Symptoms Reported Musculoskeletal: reports: Back Pain, Muscle Pain Integumentary: reports: Dryness Neuro: reports: Headache, Tremors Endocrine: reports: No Symptoms Reported Hematology: reports: No Symptoms Reported Psychiatric: reports: No Sypmtoms Reported, Judgement Intact, Mood/Affect Appropiate, Orientated x3 (schizophrenia,insomnia) Patient History - Patient Medical History Hx Anemia: No Hx Asthma: No Hx Chronic Obstructive Pulmonary Disease (COPD): No Hx Cancer: No Hx Cardiac Disorders: No Hx Congestive Heart Failure: No Hx Hypertension: Yes (onmed) Hx Hypercholesterolemia: Yes (ON MED) Hx Pacemaker: No Hx Seizures: No Hx Dementia: No Hx Diabetes: Yes (NIDDM) Hx Gastrointestinal Disorders: Yes (ACID REFLUX) Hx Liver Disease: No Hx Genitourinary Disorders: No Hx Sexually Transmitted Disorders: No Hx Renal Disease (ESRD): No Hx Thyroid Disease: No Hx Human Immunodeficiency Virus (HIV): No (NEGATIVE HX last 2017 negative) Hx Hepatitis C: No Hx Depression: Yes Hx Suicide Attempt: No Hx Bipolar Disorder: No Hx Schizophrenia: Yes Other Medical History: no suicidal,no homicidal - Patient Surgical History Past Surgical History: No Hx Neurologic Surgery: No Hx Cataract Extraction: No Hx Cardiac Surgery: No Hx Lung Surgery: No Hx Breast Surgery: No Hx Breast Biopsy: No Hx Abdominal Surgery: No Hx Appendectomy: No Hx Cholecystectomy: No Hx Genitourinary Surgery: No Hx Section: No Hx Orthopedic Surgery: No Anesthesia Reaction: No - PPD History Previous Implant?: Yes Documented Results: Negative w/proof Implanted On Prior [facility] Admission?: Yes Date: 01/25/18 Results: 0 mm PPD to be Administered?: No - Smoking Cessation Smoking history: Current every day smoker Have you smoked in the past 12 months: Yes Aproximately how many cigarettes per day: 6 Cigars Per Day: 0 Hx Chewing Tobacco Use: No Initiated information on smoking cessation: Yes 'Breaking Loose' booklet given: 04/25/18 - Substance & Tx. History Hx Alcohol Use: Yes Hx Substance Use: No Substance Use Type: Alcohol Hx Substance Use Treatment: Yes ([facility] 01/18/18 to 01/25/18) - Substances Abused Alcohol-beer/vodka Route: Oral Frequency: Daily Amount used: 2-3 6 pks./2 pts. Age of first use: 14 Date of Last Use: 04/24/18 Family Disease History - Family Disease History Family Disease History: Other: Father (alcohol,), Mother (), Brother (alcohol) Admission Physical Exam S - Vital Signs Vital Signs: Vital Signs - 24 hr 04/25/18 04/25/18 10:56 12:31 Temperature 98.8 F 98.8 F Pulse Rate 99 H 99 H Respiratory 18 18 Rate Blood Pressure 159/95 159/95 - Physical General Appearance: Yes: Moderate Distress, Tremorous, Irritable, Sweating, Anxious HEENTM: Yes: Normal ENT Inspection, GRACIELA, Pharynx Normal Respiratory: Yes: Lungs Clear, Normal Breath Sounds, No Respiratory Distress Neck: Yes: Within Normal Limits, Supple, Trachea in good position Breast: Yes: Within Normal Limits Cardiology: Yes: Within Normal Limits, Regular Rhythm, Regular Rate, S1, S2 Abdominal: Yes: Within Normal Limits, Non Tender, Soft, Decreased BS Genitourinary: Yes: Within Normal Limits Back: Yes: Muscle Spasm Musculoskeletal: Yes: Back pain, Joint Stiffness, Muscle Pain Extremities: Yes: Tremors, Other (arthitis hands and foot gouty arthritis) 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: laboratory mechanic helper II-XII NML intact, Alert, Motor Strength 5/5 Integumentary: Yes: Dry Lymphatic: Yes: Within Normal Limits - Diagnostic (1) Alcohol dependence with uncomplicated withdrawal Current Visit: No Status: Acute (2) DM (diabetes mellitus), type 2 Current Visit: No Status: Chronic Qualifiers: Diabetes mellitus snf insulin use: without snf use Diabetes mellitus complication status: without complication Qualified Code(s): E11.9 - Type 2 diabetes mellitus without complications (3) Gouty arthritis Current Visit: No Status: Chronic (4) HTN (hypertension) Current Visit: No Status: Chronic Qualifiers: Hypertension type: essential hypertension Qualified Code(s): I10 - Essential (primary) hypertension (5) Hyperlipidemia Current Visit: No Status: Chronic Qualifiers: Hyperlipidemia type: unspecified Qualified Code(s): E78.5 - Hyperlipidemia , unspecified (6) Nicotine dependence Current Visit: No Status: Chronic Qualifiers: Nicotine product type: cigarettes Substance use status: uncomplicated Qualified Code(s): F17.210 - Nicotine dependence, cigarettes, uncomplicated (7) Paranoid schizophrenia Current Visit: No Status: Ruled-out Cleared for Admission [facility] - Detox or Rehab [facility] Level of Care: Medically Managed Detox Regimen/Protocol: Librium S Breath Alcohol Content Breath Alcohol Content: 0 Urine Drug Screen - Results Drug Screen Negative: No Urine Drug Screen Results: BZO-Benzodiazepines, TCA-Tricyclic Antidepress
[2018-04-25] MEDS ORDERED: hydrOXYzine PAMOATE 25 MG CAPSULE (FP) PO PRN (13:29)
[2018-04-25] MEDS ORDERED: guaiFENesin/D-METHORPHAN HB 10 ML UNIT-DOSE CUPS PO PRN (13:29)
[2018-04-25] MEDS ORDERED: MAGNESIUM CITRATE 300 ML BOTTLE PO PRN (13:29)
[2018-04-25] MEDS ORDERED: MAG HYDROX/AL HYDROX/SIMETH 30 ML UNIT-DOSE CUP PO PRN (13:29)
[2018-04-25] MEDS ORDERED: chlordiazePOXIDE HCL 25 MG CAPSULE PO PRN (13:29)
[2018-04-25] MEDS ORDERED: MENTHOL/PHENOL 1 EACH UD MM PRN (13:29)
[2018-04-25] MEDS ORDERED: LOPERAMIDE HCL 2 MG CAPSULE PO PRN (13:29)
[2018-04-25] MEDS ORDERED: P-EPHED 60MG/TRIPROLIDI 2.5MG TABLET PO PRN (13:29)
[2018-04-25] MEDS ORDERED: MAGNESIUM HYDROX 2400MG/30ML ORAL SUSPENSION 30 ML CUP PO PRN (13:29)
[2018-04-25] MEDS: NICOTINE 21 MG/24 HOURS TOPICAL PATCH TD SCH (14:55)
[2018-04-25] MEDS: metFORMIN HCL 500 MG TABLET (FP) PO SCH (17:30)
[2018-04-25] MEDS: IBUPROFEN 400 MG TABLET (FP) PO PRN (17:54)
[2018-04-25] MEDS: chlordiazePOXIDE HCL 25 MG CAPSULE PO SCH ×2 (17:54→22:28)
[2018-04-25] MEDS ORDERED: MELATONIN 5 MG TABLETS PO PRN (22:00)
[2018-04-25] MEDS: THIAMINE HCL 100 MG TABLET (FP) PO SCH (22:28)
[2018-04-25] MEDS: ATORVASTATIN CA 80 MG TABLET (FP) PO SCH (22:28)
[2018-04-25] MEDS: METOPROLOL TARTRATE 50 MG TABLET (FP) PO SCH (22:28)
[2018-04-25 23:26] LABS: URINE APPEARANCE CLEAR; URINE BILIRUBIN NEGATIVE (<2.0 mg/dL); URINE COLOR YELLOW; URINE GLUCOSE (UA) NEGATIVE (NEGATIVE); URINE KETONE NEGATIVE (NEGATIVE); URINE LEUK ESTERASE NEGATIVE (NEGATIVE); URINE NITRITE NEGATIVE (NEGATIVE); URINE PROTEIN NEGATIVE (NEGATIVE); URINE UROBILINOGEN NEGATIVE mg/dL (0.2-1.0)
[2018-04-26] MEDS: chlordiazePOXIDE HCL 25 MG CAPSULE PO SCH ×4 (06:00→22:27)
[2018-04-26] MEDS: metFORMIN HCL 500 MG TABLET (FP) PO SCH ×2 (06:12→17:25)
[2018-04-26] MEDS: PRENATAL VITAMINS W/ FOLIC ACID TABLET (FP) PO SCH (10:22)
[2018-04-26] MEDS: NICOTINE 21 MG/24 HOURS TOPICAL PATCH TD SCH (10:22)
[2018-04-26] MEDS: ALLOPURINOL 100 MG TABLET (FP) PO SCH (10:22)
[2018-04-26] MEDS: COLCHICINE 0.6 MG TABLET (FP) PO SCH (10:22)
[2018-04-26] MEDS: METOPROLOL TARTRATE 50 MG TABLET (FP) PO SCH ×2 (10:22→22:27)
[2018-04-26] MEDS: PANTOPRAZOLE 40 MG TABLET (FP) PO SCH (10:22)
[2018-04-26 10:27] LABS: HEMATOCRIT 34.3 % (35.4-49); HEMOGLOBIN 11.5 GM/dL (11.7-16.9); MCH 29.7 pg (25.7-33.7); MCHC 33.7 g/dl (32.0-35.9); MEAN CELL VOLUME 88.3 fl (80-96); PLATELET COUNT 172 K/MM3 (134-434); RBC 3.89 M/mm3 (4.00-5.60); RDW 17.4 % (11.9-15.9); WHITE BLOOD COUNT 5.2 K/mm3 (4.0-10.0)
[2018-04-26 10:46] LABS: ALBUMIN 3.6 g/dl (3.4-5.0); ALK PHOS 82 U/L (45-117); ANION GAP 5 (8-16); BILIRUBIN,TOTAL 0.3 mg/dL (0.2-1.0); BLOOD UREA NITROGEN 12 mg/dL (7-18); CALCIUM 9.1 mg/dL (8.5-10.1); CHLORIDE 106 mmol/L (98-107); CO2 32 mmol/L (21-32); CREATININE 1.1 mg/dL (0.7-1.3); GLUCOSE,RANDOM 107 mg/dL (74-106); POTASSIUM 4.1 mmol/L (3.5-5.1); SGOT/AST 23 U/L (15-37); SGPT/ALT 26 U/L (12-78); SODIUM 143 mmol/L (136-145); TOT PROT 7.2 g/dl (6.4-8.2)
--- NOTE | 2018-04-26 11:17 | EKG ---
Test Reason : Blood Pressure : / mmHG Vent. Rate : 091 BPM Atrial Rate : 091 BPM P-R Int : 162 ms QRS Dur : 074 ms QT Int : 372 ms P-R-T Axes : 043 011 027 degrees QTc Int : 457 ms NORMAL SINUS RHYTHM MINIMAL VOLTAGE CRITERIA FOR LVH, MAY BE NORMAL VARIANT WHEN COMPARED WITH ECG OF 20-JAN-2018 08:56, NONSPECIFIC T WAVE ABNORMALITY, IMPROVED IN INFERIOR LEADS Confirmed by JAYDEN SIDHU, MALLORY ([id number]) on 04/26/2018 11:17:16 AM Referred By: Judy Howard Confirmed By:MALLORY CARPENTER MD
--- NOTE | 2018-04-26 14:40 | CONSULT ---
[facility] Psychiatric Consult - Data Date of interview: 04/26/18 Admission source: [facility] Identifying data: This is one of several admissions to [facility] for this 52 y/ o AA male seeking detox treatment on for alcohol dependence.Patient is single without dependents,domiciled,unemployed and supported on SSI benefits. Substance Abuse History: Confirmed by the patient in this interview.Smoking history: Current every day smoker. Have you smoked in the past 12 months: Yes. Aproximately how many cigarettes per day: 6. Cigars Per Day: 0. Hx Chewing Tobacco Use: No. Initiated information on smoking cessation: Yes. 'Breaking Loose' booklet given: 04/25/18. - Substance & Tx. History. Hx Alcohol Use: Yes. Hx Substance Use: No. Substance Use Type: Alcohol. Hx Substance Use Treatment: Yes ([facility] 01/18/18 to 01/25/18). - Substances Abused. Alcohol-beer/vodka. Route: Oral. Frequency: Daily. Amount used: 2-3 6 pks./2 pts. Age of first use: 14. Date of Last Use: 04/24/18 Medical History: Consistent with multiple co-morbidities : gout,arthritis,GERD, dyslipidemia,diabetes mellitus,hypertension and a history of sleep apnea. Psychiatric History: Patient endorses a history of multiple psychiatric hospitalizations ([facility]) .Diagnosed with MDD and Schizophrenia (self-report).Onset of emotional disturbances : age 17.Mr Selby declares that he does not have a psychiatrist but he relies on his primary care physician for refills of sertraline and seroquel.Managed on seroquel 400 mg/hs + zoloft 100 mg/day.Pattern of adherence : questionable.Patient denies history of suicide attempts. Physical/Sexual Abuse/Trauma History: Patient denies. Additional Comment: Urine Drug Screen Results: BZO-Benzodiazepines, TCA- Tricyclic Antidepressant.Noted. Mental Status Exam - Mental Status Exam Alert and Oriented to: Time, Place, Person Cognitive Function: Good Patient Appearance: Well Groomed Mood: Nervous, Withdrawn Affect: Mood Congruent Patient Behavior: Fatigued, Cooperative (resting in bed) Speech Pattern: Clear, Appropriate Voice Loudness: Normal Thought Process: Intact, Goal Oriented Thought Disorder: Not Present Hallucinations: Denies Suicidal Ideation: Denies Homicidal Ideation: Denies Insight/Judgement: Poor Sleep: Poorly, Difficulty falling asleep Appetite: Good Muscle strength/Tone: Normal Gait/Station: Other (not observed ; in bed for entire interview) Psychiatric Findings - Problem List ([place] 1, 2,3) (1) Alcohol dependence with uncomplicated withdrawal Current Visit: Yes Status: Acute (2) Nicotine dependence Current Visit: Yes Status: Acute (3) MDD (major depressive disorder) Current Visit: Yes Status: Chronic Qualifiers: Major depression episode severity: unspecified Comment: As per records and self-report. (4) Schizoaffective disorder Current Visit: No Status: Suspected (5) Schizophrenia Current Visit: Yes Status: Chronic Comment: As per patient's report. (6) Insomnia Current Visit: Yes Status: Acute (7) Non-compliance with treatment Current Visit: Yes Status: Acute - Initial Treatment Plan Initial Treatment Plan: Records revisited.Psychoeducation.Sleep hygiene.Detoxification in progress.Will restart seroquel at the dose of 100 mg po hs + 50 mg po am (patient specifically requested that medication be dispensed in two divided doses) + zoloft 100 mg po daily.Titration will follow if no adverse effects (oversedation).Side effects/benefits of both drugs are discussed with the patient.Consent (verbal) given.Observation.
--- NOTE | 2018-04-26 14:53 | PN ---
[facility] CIWA - CIWA Score Nausea/Vomitin-No Nausea/No Vomiting Muscle Tremors: 4-Moderate,w/Arms Extend Anxiety: 4-Mod. Anxious/Guarded Agitation: 3 Paroxysmal Sweats: No Perspiration Orientation: 0-Oriented Tacttile Disturbances: 2-Mild Itch/Numbness/Burn Auditory Disturbances: 0-None Visual Disturbances: 2-Mild Sensitivity Headache: 0-None Present CIWA-Ar Total Score: 15 S Progress Note (SOAP) Subjective: Fatigue, Tremors, Anxious. Objective: PATIENT A & O X 3, OBSERVED AMBULATING ON UNIT. NO ACUTE DISTRESS. PATIENT DENIES CHEST PAIN. 04/26/18 14:50 Vital Signs Temperature 98 F 04/26/18 13:48 Pulse Rate 77 04/26/18 13:48 Respiratory Rate 18 04/26/18 13:48 Blood Pressure 157/98 04/26/18 13:48 O2 Sat by Pulse Oximetry (%) Laboratory Tests 04/25/18 04/25/18 04/25/18 12:26 16:24 22:00 WBC RBC Hgb Hct MCV MCH MCHC RDW Plt Count MPV Sodium Potassium Chloride Carbon Dioxide Anion Gap BUN Creatinine Creat Clearance w eGFR POC Glucometer 137 165 Random Glucose Calcium Total Bilirubin AST ALT Alkaline Phosphatase Total Protein Albumin Urine Color Yellow Urine Appearance Clear Urine pH 5.0 Ur Specific [place] 1.016 Urine Protein Negative Urine Glucose (UA) Negative Urine Ketones Negative Urine Blood Negative Urine Nitrite Negative Urine Bilirubin Negative Urine Urobilinogen Negative Ur Leukocyte Esterase Negative RPR Titer 04/26/18 04/26/18 04/26/18 05:50 05:50 05:50 WBC 5.2 RBC 3.89 L Hgb 11.5 L Hct 34.3 L MCV 88.3 MCH 29.7 MCHC 33.7 RDW 17.4 H Plt Count 172 MPV 11.0 Sodium 143 Potassium 4.1 Chloride 106 Carbon Dioxide 32 D Anion Gap 5 L BUN 12 Creatinine 1.1 Creat Clearance w eGFR > 60 POC Glucometer Random Glucose 107 H D Calcium 9.1 Total Bilirubin 0.3 AST 23 D ALT 26 D Alkaline Phosphatase 82 Total Protein 7.2 Albumin 3.6 Urine Color Urine Appearance Urine pH Ur Specific [place] Urine Protein Urine Glucose (UA) Urine Ketones Urine Blood Urine Nitrite Urine Bilirubin Urine Urobilinogen Ur Leukocyte Esterase RPR Titer Nonreactive 04/26/18 06:11 WBC RBC Hgb Hct MCV MCH MCHC RDW Plt Count MPV Sodium Potassium Chloride Carbon Dioxide Anion Gap BUN Creatinine Creat Clearance w eGFR POC Glucometer 128 Random Glucose Calcium Total Bilirubin AST ALT Alkaline Phosphatase Total Protein Albumin Urine Color Urine Appearance Urine pH Ur Specific [place] Urine Protein Urine Glucose (UA) Urine Ketones Urine Blood Urine Nitrite Urine Bilirubin Urine Urobilinogen Ur Leukocyte Esterase RPR Titer LABS NOTED. Assessment: 04/26/18 14:50 WITHDRAWAL SYMPTOMS. HYPERTENSION. ANEMIA. 04/26/18 14:51 Plan: CONTINUE DETOX. CONTINUE TO MONITOR BP.
[2018-04-26] MEDS: IBUPROFEN 400 MG TABLET (FP) PO PRN (17:58)
[2018-04-26] MEDS: QUEtiapine FUMARATE 100 MG TABLET (FP) PO SCH (22:27)
[2018-04-26] MEDS: ATORVASTATIN CA 80 MG TABLET (FP) PO SCH (22:27)
[2018-04-26] MEDS: THIAMINE HCL 100 MG TABLET (FP) PO SCH (22:27)
[2018-04-27] MEDS: metFORMIN HCL 500 MG TABLET (FP) PO SCH ×2 (07:13→17:27)
[2018-04-27] MEDS: chlordiazePOXIDE HCL 25 MG CAPSULE PO SCH ×2 (07:29→11:00)
[2018-04-27] MEDS: SERTRALINE HCL 50 MG TABLET (FP) PO SCH (11:00)
[2018-04-27] MEDS: METOPROLOL TARTRATE 50 MG TABLET (FP) PO SCH ×2 (11:00→22:21)
[2018-04-27] MEDS: NICOTINE 21 MG/24 HOURS TOPICAL PATCH TD SCH (11:00)
[2018-04-27] MEDS: PRENATAL VITAMINS W/ FOLIC ACID TABLET (FP) PO SCH (11:00)
[2018-04-27] MEDS: COLCHICINE 0.6 MG TABLET (FP) PO SCH (11:00)
[2018-04-27] MEDS: QUEtiapine FUMARATE 50 MG TABLET PO SCH (11:00)
[2018-04-27] MEDS: PANTOPRAZOLE 40 MG TABLET (FP) PO SCH (11:00)
[2018-04-27] MEDS: ALLOPURINOL 100 MG TABLET (FP) PO SCH (11:01)
[2018-04-27] MEDS: IBUPROFEN 400 MG TABLET (FP) PO PRN (11:04)
--- NOTE | 2018-04-27 15:20 | PN ---
S CIWA - CIWA Score Nausea/Vomitin-No Nausea/No Vomiting Muscle Tremors: 2 Anxiety: 4-Mod. Anxious/Guarded Agitation: 3 Paroxysmal Sweats: No Perspiration Orientation: 0-Oriented Tacttile Disturbances: 2-Mild Itch/Numbness/Burn Auditory Disturbances: 0-None Visual Disturbances: 1-Very Mild Sensitivity Headache: 0-None Present CIWA-Ar Total Score: 12 [facility] Progress Note (SOAP) Subjective: Sweating, Anxious, Body Aches. Objective: PATIENT A & O X 3, OBSERVED AMBULATING ON UNIT. NO ACUTE DISTRESS. PATIENT REPORTS SWELLING AND PAIN IN LEFT FOOT/ANKLE. PATIENT REPORTS HISTORY OF GOUT. SWELLING NOTED IN LEFT FOOT NEAR ANKLE. 04/27/18 15:16 Vital Signs Temperature 98.3 F 04/27/18 13:34 Pulse Rate 82 04/27/18 13:34 Respiratory Rate 20 04/27/18 13:34 Blood Pressure 126/77 04/27/18 13:34 O2 Sat by Pulse Oximetry (%) Laboratory Tests 04/25/18 04/25/18 04/25/18 12:26 16:24 22:00 WBC RBC Hgb Hct MCV MCH MCHC RDW Plt Count MPV Sodium Potassium Chloride Carbon Dioxide Anion Gap BUN Creatinine Creat Clearance w eGFR POC Glucometer 137 165 Random Glucose Calcium Total Bilirubin AST ALT Alkaline Phosphatase Total Protein Albumin Urine Color Yellow Urine Appearance Clear Urine pH 5.0 Ur Specific [place] 1.016 Urine Protein Negative Urine Glucose (UA) Negative Urine Ketones Negative Urine Blood Negative Urine Nitrite Negative Urine Bilirubin Negative Urine Urobilinogen Negative Ur Leukocyte Esterase Negative RPR Titer 04/26/18 04/26/18 04/26/18 05:50 05:50 05:50 WBC 5.2 RBC 3.89 L Hgb 11.5 L Hct 34.3 L MCV 88.3 MCH 29.7 MCHC 33.7 RDW 17.4 H Plt Count 172 MPV 11.0 Sodium 143 Potassium 4.1 Chloride 106 Carbon Dioxide 32 D Anion Gap 5 L BUN 12 Creatinine 1.1 Creat Clearance w eGFR > 60 POC Glucometer Random Glucose 107 H D Calcium 9.1 Total Bilirubin 0.3 AST 23 D ALT 26 D Alkaline Phosphatase 82 Total Protein 7.2 Albumin 3.6 Urine Color Urine Appearance Urine pH Ur Specific [place] Urine Protein Urine Glucose (UA) Urine Ketones Urine Blood Urine Nitrite Urine Bilirubin Urine Urobilinogen Ur Leukocyte Esterase RPR Titer Nonreactive 04/26/18 04/26/18 04/27/18 06:11 16:22 06:55 WBC RBC Hgb Hct MCV MCH MCHC RDW Plt Count MPV Sodium Potassium Chloride Carbon Dioxide Anion Gap BUN Creatinine Creat Clearance w eGFR POC Glucometer 128 137 184 Random Glucose Calcium Total Bilirubin AST ALT Alkaline Phosphatase Total Protein Albumin Urine Color Urine Appearance Urine pH Ur Specific [place] Urine Protein Urine Glucose (UA) Urine Ketones Urine Blood Urine Nitrite Urine Bilirubin Urine Urobilinogen Ur Leukocyte Esterase RPR Titer LABS NOTED. 04/27/18 15:18 Assessment: 04/27/18 15:16 WITHDRAWAL SYMPTOMS. Plan: CONTINUE DETOX. PATIENT REPORTS HISTORY OF GASTRIC ULCER AND OF RENAL DISEASE, THUS NSAID'S ARE NOT RECOMMENDED AT THAT TIME. PRN TYLENOL FOR FOOT/ANKLE PAIN.
[2018-04-27] MEDS: chlordiazePOXIDE 5 MG CAPSULE PO SCH ×2 (17:27→22:21)
[2018-04-27] MEDS: ACETAMINOPHEN 325 MG TABLET (FP) PO PRN (17:29)
[2018-04-27] MEDS: QUEtiapine FUMARATE 100 MG TABLET (FP) PO SCH (22:21)
[2018-04-27] MEDS: THIAMINE HCL 100 MG TABLET (FP) PO SCH (22:21)
[2018-04-27] MEDS: ATORVASTATIN CA 80 MG TABLET (FP) PO SCH (22:21)
[2018-04-28] MEDS: chlordiazePOXIDE 5 MG CAPSULE PO SCH ×2 (06:00→10:31)
[2018-04-28] MEDS: metFORMIN HCL 500 MG TABLET (FP) PO SCH ×2 (06:13→16:47)
[2018-04-28] MEDS: ACETAMINOPHEN 325 MG TABLET (FP) PO PRN ×2 (06:42→16:48)
[2018-04-28] MEDS: METOPROLOL TARTRATE 50 MG TABLET (FP) PO SCH ×2 (10:31→22:36)
[2018-04-28] MEDS: PANTOPRAZOLE 40 MG TABLET (FP) PO SCH (10:31)
[2018-04-28] MEDS: QUEtiapine FUMARATE 50 MG TABLET PO SCH (10:31)
[2018-04-28] MEDS: PRENATAL VITAMINS W/ FOLIC ACID TABLET (FP) PO SCH (10:31)
[2018-04-28] MEDS: SERTRALINE HCL 50 MG TABLET (FP) PO SCH (10:31)
[2018-04-28] MEDS: COLCHICINE 0.6 MG TABLET (FP) PO SCH (10:32)
[2018-04-28] MEDS: ALLOPURINOL 100 MG TABLET (FP) PO SCH (10:32)
[2018-04-28] MEDS: NICOTINE 21 MG/24 HOURS TOPICAL PATCH TD SCH (10:33)
--- NOTE | 2018-04-28 13:47 | PN ---
[facility] Progress Note (SOAP) Subjective: Patient c/o left ankle swollen, stated he was seen in ER at [facility] and had xray of his left ankle done last week and was Rx naproxen which helps with the pain. Stated motrin and tylenol not effective. Wants to resume naproxen. Objective: 04/28/18 13:44 Last Vital Signs Temp Pulse Resp BP Pulse Ox 97.3 F L 80 17 140/90 04/28/18 09:30 04/28/18 09:30 04/28/18 09:30 04/28/18 09:30 Noted with mild swelling left ankle, no redness, FROM Laboratory Tests 04/25/18 04/25/18 04/25/18 12:26 16:24 22:00 WBC RBC Hgb Hct MCV MCH MCHC RDW Plt Count MPV Sodium Potassium Chloride Carbon Dioxide Anion Gap BUN Creatinine Creat Clearance w eGFR POC Glucometer 137 165 Random Glucose Calcium Total Bilirubin AST ALT Alkaline Phosphatase Total Protein Albumin Urine Color Yellow Urine Appearance Clear Urine pH 5.0 Ur Specific [place] 1.016 Urine Protein Negative Urine Glucose (UA) Negative Urine Ketones Negative Urine Blood Negative Urine Nitrite Negative Urine Bilirubin Negative Urine Urobilinogen Negative Ur Leukocyte Esterase Negative RPR Titer 04/26/18 04/26/18 04/26/18 05:50 05:50 05:50 WBC 5.2 RBC 3.89 L Hgb 11.5 L Hct 34.3 L MCV 88.3 MCH 29.7 MCHC 33.7 RDW 17.4 H Plt Count 172 MPV 11.0 Sodium 143 Potassium 4.1 Chloride 106 Carbon Dioxide 32 D Anion Gap 5 L BUN 12 Creatinine 1.1 Creat Clearance w eGFR > 60 POC Glucometer Random Glucose 107 H D Calcium 9.1 Total Bilirubin 0.3 AST 23 D ALT 26 D Alkaline Phosphatase 82 Total Protein 7.2 Albumin 3.6 Urine Color Urine Appearance Urine pH Ur Specific [place] Urine Protein Urine Glucose (UA) Urine Ketones Urine Blood Urine Nitrite Urine Bilirubin Urine Urobilinogen Ur Leukocyte Esterase RPR Titer Nonreactive 04/26/18 04/26/18 04/27/18 06:11 16:22 06:55 WBC RBC Hgb Hct MCV MCH MCHC RDW Plt Count MPV Sodium Potassium Chloride Carbon Dioxide Anion Gap BUN Creatinine Creat Clearance w eGFR POC Glucometer 128 137 184 Random Glucose Calcium Total Bilirubin AST ALT Alkaline Phosphatase Total Protein Albumin Urine Color Urine Appearance Urine pH Ur Specific [place] Urine Protein Urine Glucose (UA) Urine Ketones Urine Blood Urine Nitrite Urine Bilirubin Urine Urobilinogen Ur Leukocyte Esterase RPR Titer 04/27/18 04/28/18 16:34 06:30 WBC RBC Hgb Hct MCV MCH MCHC RDW Plt Count MPV Sodium Potassium Chloride Carbon Dioxide Anion Gap BUN Creatinine Creat Clearance w eGFR POC Glucometer 118 107 Random Glucose Calcium Total Bilirubin AST ALT Alkaline Phosphatase Total Protein Albumin Urine Color Urine Appearance Urine pH Ur Specific [place] Urine Protein Urine Glucose (UA) Urine Ketones Urine Blood Urine Nitrite Urine Bilirubin Urine Urobilinogen Ur Leukocyte Esterase RPR Titer Labs reviewed 04/28/18 13:47 Assessment: 04/28/18 13:44 Withdrawal symptoms c/o pain in left ankle Plan: Continue detox Pain left ankle: naproxen 500mg PO q12hr, tylenol prn
[2018-04-28] MEDS: chlordiazePOXIDE HCL 10 MG CAPSULE PO SCH ×2 (16:47→22:36)
[2018-04-28] MEDS ORDERED: NAPROXEN 500 MG TABLET (FP) PO SCH (22:00)
[2018-04-28] MEDS: ATORVASTATIN CA 80 MG TABLET (FP) PO SCH (22:36)
[2018-04-28] MEDS: QUEtiapine FUMARATE 100 MG TABLET (FP) PO SCH (22:36)
[2018-04-28] MEDS: THIAMINE HCL 100 MG TABLET (FP) PO SCH (22:36)
[2018-04-29] MEDS: chlordiazePOXIDE HCL 10 MG CAPSULE PO SCH (05:37)
[2018-04-29] MEDS: ACETAMINOPHEN 325 MG TABLET (FP) PO PRN (05:38)
[2018-04-29 06:06] VITALS: BP 131/79; PULSE 71; TEMP 97.5
[2018-04-29] MEDS: metFORMIN HCL 500 MG TABLET (FP) PO SCH (07:12)
--- NOTE | 2018-04-29 12:34 | PN ---
[facility] Progress Note (SOAP) Subjective: DETOX COMPLETED. ALERT O X 3. NAD. PT REORTS HE HAS A PMD DR. [facility] ADAIR AT [facility]. HAS OWN MEDS AT HOME. Objective: 04/29/18 12:33 Vital Signs 04/29/18 06:05 Temperature 97.5 F L Pulse Rate 71 Respiratory 18 Rate Blood Pressure 131/79 Laboratory Tests 04/25/18 04/25/18 04/25/18 12:26 16:24 22:00 WBC RBC Hgb Hct MCV MCH MCHC RDW Plt Count MPV Sodium Potassium Chloride Carbon Dioxide Anion Gap BUN Creatinine Creat Clearance w eGFR POC Glucometer 137 165 Random Glucose Calcium Total Bilirubin AST ALT Alkaline Phosphatase Total Protein Albumin Urine Color Yellow Urine Appearance Clear Urine pH 5.0 Ur Specific [place] 1.016 Urine Protein Negative Urine Glucose (UA) Negative Urine Ketones Negative Urine Blood Negative Urine Nitrite Negative Urine Bilirubin Negative Urine Urobilinogen Negative Ur Leukocyte Esterase Negative RPR Titer 04/26/18 04/26/18 04/26/18 05:50 05:50 05:50 WBC 5.2 RBC 3.89 L Hgb 11.5 L Hct 34.3 L MCV 88.3 MCH 29.7 MCHC 33.7 RDW 17.4 H Plt Count 172 MPV 11.0 Sodium 143 Potassium 4.1 Chloride 106 Carbon Dioxide 32 D Anion Gap 5 L BUN 12 Creatinine 1.1 Creat Clearance w eGFR > 60 POC Glucometer Random Glucose 107 H D Calcium 9.1 Total Bilirubin 0.3 AST 23 D ALT 26 D Alkaline Phosphatase 82 Total Protein 7.2 Albumin 3.6 Urine Color Urine Appearance Urine pH Ur Specific [place] Urine Protein Urine Glucose (UA) Urine Ketones Urine Blood Urine Nitrite Urine Bilirubin Urine Urobilinogen Ur Leukocyte Esterase RPR Titer Nonreactive 04/26/18 04/26/18 04/27/18 06:11 16:22 06:55 WBC RBC Hgb Hct MCV MCH MCHC RDW Plt Count MPV Sodium Potassium Chloride Carbon Dioxide Anion Gap BUN Creatinine Creat Clearance w eGFR POC Glucometer 128 137 184 Random Glucose Calcium Total Bilirubin AST ALT Alkaline Phosphatase Total Protein Albumin Urine Color Urine Appearance Urine pH Ur Specific [place] Urine Protein Urine Glucose (UA) Urine Ketones Urine Blood Urine Nitrite Urine Bilirubin Urine Urobilinogen Ur Leukocyte Esterase RPR Titer 04/27/18 04/28/18 04/28/18 16:34 06:30 16:06 WBC RBC Hgb Hct MCV MCH MCHC RDW Plt Count MPV Sodium Potassium Chloride Carbon Dioxide Anion Gap BUN Creatinine Creat Clearance w eGFR POC Glucometer 118 107 119 Random Glucose Calcium Total Bilirubin AST ALT Alkaline Phosphatase Total Protein Albumin Urine Color Urine Appearance Urine pH Ur Specific [place] Urine Protein Urine Glucose (UA) Urine Ketones Urine Blood Urine Nitrite Urine Bilirubin Urine Urobilinogen Ur Leukocyte Esterase RPR Titer 04/29/18 05:36 WBC RBC Hgb Hct MCV MCH MCHC RDW Plt Count MPV Sodium Potassium Chloride Carbon Dioxide Anion Gap BUN Creatinine Creat Clearance w eGFR POC Glucometer 119 Random Glucose Calcium Total Bilirubin AST ALT Alkaline Phosphatase Total Protein Albumin Urine Color Urine Appearance Urine pH Ur Specific [place] Urine Protein Urine Glucose (UA) Urine Ketones Urine Blood Urine Nitrite Urine Bilirubin Urine Urobilinogen Ur Leukocyte Esterase RPR Titer Assessment: 04/29/18 12:33 WITHDRAWAL SX Plan: D/C PT TODAY. FOLLOW UP WITH AFTERCARE PLANNED AT [facility].
--- NOTE | 2018-04-29 12:40 | DS ---
[facility] Detox Discharge Summary Admission Date: 04/25/18 Discharge Date: 04/29/18 - History Present History: Alcohol Dependence Additional Comments: DETOX COMPLETED. ALERT O X 3. NAD. PT WILL FOLLOW UP WITH HIS PMD DR. [facility] ADAIR AT [facility]. Pertinent Past History: PLEASE SEE DX BELOW - Physical Exam Results Vital Signs: Vital Signs Temperature 97.5 F L 04/29/18 06:05 Pulse Rate 71 04/29/18 06:05 Respiratory Rate 18 04/29/18 06:05 Blood Pressure 131/79 04/29/18 06:05 O2 Sat by Pulse Oximetry (%) Pertinent Admission Physical Exam Findings: WITHDRAWAL SX Laboratory Tests 04/25/18 04/25/18 04/25/18 12:26 16:24 22:00 WBC RBC Hgb Hct MCV MCH MCHC RDW Plt Count MPV Sodium Potassium Chloride Carbon Dioxide Anion Gap BUN Creatinine Creat Clearance w eGFR POC Glucometer 137 165 Random Glucose Calcium Total Bilirubin AST ALT Alkaline Phosphatase Total Protein Albumin Urine Color Yellow Urine Appearance Clear Urine pH 5.0 Ur Specific [place] 1.016 Urine Protein Negative Urine Glucose (UA) Negative Urine Ketones Negative Urine Blood Negative Urine Nitrite Negative Urine Bilirubin Negative Urine Urobilinogen Negative Ur Leukocyte Esterase Negative RPR Titer 04/26/18 04/26/18 04/26/18 05:50 05:50 05:50 WBC 5.2 RBC 3.89 L Hgb 11.5 L Hct 34.3 L MCV 88.3 MCH 29.7 MCHC 33.7 RDW 17.4 H Plt Count 172 MPV 11.0 Sodium 143 Potassium 4.1 Chloride 106 Carbon Dioxide 32 D Anion Gap 5 L BUN 12 Creatinine 1.1 Creat Clearance w eGFR > 60 POC Glucometer Random Glucose 107 H D Calcium 9.1 Total Bilirubin 0.3 AST 23 D ALT 26 D Alkaline Phosphatase 82 Total Protein 7.2 Albumin 3.6 Urine Color Urine Appearance Urine pH Ur Specific [place] Urine Protein Urine Glucose (UA) Urine Ketones Urine Blood Urine Nitrite Urine Bilirubin Urine Urobilinogen Ur Leukocyte Esterase RPR Titer Nonreactive 04/26/18 04/26/18 04/27/18 06:11 16:22 06:55 WBC RBC Hgb Hct MCV MCH MCHC RDW Plt Count MPV Sodium Potassium Chloride Carbon Dioxide Anion Gap BUN Creatinine Creat Clearance w eGFR POC Glucometer 128 137 184 Random Glucose Calcium Total Bilirubin AST ALT Alkaline Phosphatase Total Protein Albumin Urine Color Urine Appearance Urine pH Ur Specific [place] Urine Protein Urine Glucose (UA) Urine Ketones Urine Blood Urine Nitrite Urine Bilirubin Urine Urobilinogen Ur Leukocyte Esterase RPR Titer 04/27/18 04/28/18 04/28/18 16:34 06:30 16:06 WBC RBC Hgb Hct MCV MCH MCHC RDW Plt Count MPV Sodium Potassium Chloride Carbon Dioxide Anion Gap BUN Creatinine Creat Clearance w eGFR POC Glucometer 118 107 119 Random Glucose Calcium Total Bilirubin AST ALT Alkaline Phosphatase Total Protein Albumin Urine Color Urine Appearance Urine pH Ur Specific [place] Urine Protein Urine Glucose (UA) Urine Ketones Urine Blood Urine Nitrite Urine Bilirubin Urine Urobilinogen Ur Leukocyte Esterase RPR Titer 04/29/18 05:36 WBC RBC Hgb Hct MCV MCH MCHC RDW Plt Count MPV Sodium Potassium Chloride Carbon Dioxide Anion Gap BUN Creatinine Creat Clearance w eGFR POC Glucometer 119 Random Glucose Calcium Total Bilirubin AST ALT Alkaline Phosphatase Total Protein Albumin Urine Color Urine Appearance Urine pH Ur Specific [place] Urine Protein Urine Glucose (UA) Urine Ketones Urine Blood Urine Nitrite Urine Bilirubin Urine Urobilinogen Ur Leukocyte Esterase RPR Titer - Treatment Hospital Course: Detox Protocol Followed, Detoxed Safely, Responded well, Discharged Condition Good - Medication Discharge Medications: Ambulatory Orders Metoprolol Tartrate [Lopressor] 100 mg PO BID 10/04/17 Quetiapine Fumarate [Seroquel -] 400 mg PO HS 10/04/17 Sertraline HCl [Zoloft -] 100 mg PO DAILY 10/04/17 Atorvastatin Ca [Lipitor] 80 mg PO HS #30 tablet 01/24/18 Allopurinol [Zyloprim -] 100 mg PO DAILY 04/25/18 Colchicine [Colcrys -] 0.6 mg PO DAILY 04/25/18 Folic Acid - 1 mg PO DAILY 04/25/18 Metformin HCl [Glucophage] 500 mg PO BID 04/25/18 Multivitamins [Multivit ([facility] Formulary)] 1 tab PO DAILY 04/25/18 Pantoprazole Sodium [Protonix -] 40 mg PO DAILY 04/25/18 Thiamine HCl [B-1] 100 mg PO DAILY 04/25/18 - Diagnosis (1) Alcohol dependence with uncomplicated withdrawal Status: Acute (2) DM (diabetes mellitus), type 2 Status: Chronic Qualifiers: Diabetes mellitus senior living insulin use: without senior living use Diabetes mellitus complication status: without complication Qualified Code(s): E11.9 - Type 2 diabetes mellitus without complications (3) GERD (gastroesophageal reflux disease) Status: Chronic Qualifiers: Esophagitis presence: esophagitis presence not specified Qualified Code(s) : K21.9 - Gastro-esophageal reflux disease without esophagitis (4) Gouty arthritis Status: Chronic (5) Nicotine dependence Status: Acute Qualifiers: Nicotine product type: cigarettes Substance use status: in withdrawal Qualified Code(s): F17.213 - Nicotine dependence, cigarettes, with withdrawal (6) HTN (hypertension) Status: Chronic Qualifiers: Hypertension type: essential hypertension Qualified Code(s): I10 - Essential (primary) hypertension (7) Hyperlipidemia Status: Chronic Qualifiers: Hyperlipidemia type: unspecified Qualified Code(s): E78.5 - Hyperlipidemia , unspecified (8) Schizophrenia Status: Chronic (9) Schizoaffective disorder Status: Suspected - AMA Did Patient Leave Against Medical Advice: No
== END 2018-04-29 09:00 | disposition home or self-care (01) | DRG 775 ==
LOC: YASAS 09:19 → Y3N 13:27
PROVIDERS: ADMIT Surgery; ATTEND Surgery
PROC: HZ2ZZZZ Detoxification Services for Substance Abuse Treatment (ICD-10-PCS; principal; 2018-04-25)
DX: F10.230 Alcohol dependence with withdrawal, uncomplicated (principal); F17.213 Nicotine dependence, cigarettes, with withdrawal; F20.0 Paranoid schizophrenia; F25.9 Schizoaffective disorder, unspecified; F33.9 Major depressive disorder, recurrent, unspecified; I10 Essential (primary) hypertension; E11.9 Type 2 diabetes mellitus without complications; K21.9 Gastro-esophageal reflux disease without esophagitis; M10.9 Gout, unspecified; E78.5 Hyperlipidemia, unspecified; M25.572 Pain in left ankle and joints of left foot; D64.9 Anemia, unspecified; Z91.19 Patient's noncompliance with other medical treatment and regimen; Z88.7 Allergy status to serum and vaccine; Z79.84 Long term (current) use of oral hypoglycemic drugs
CPT/HCPCS: 36415; 80053; 81003; 82962; 85027; 86593; 93005; 93010

== ENCOUNTER 2018-07-21 15:37 | Inpatient (IN) | payer OTHER ==
[2018-07-21 15:45] VITALS: BMI 35.3
--- NOTE | 2018-07-21 17:05 | HP ---
CIWA Score Nausea/Vomitin Muscle Tremors: 2 Anxiety: 2 Agitation: 2 Paroxysmal Sweats: 2 Orientation: 0-Oriented Tacttile Disturbances: 1-Very Mild Itch/Numbness Auditory Disturbances: 1-Very Mild Visual Disturbances: 0-None Headache: 2-Mild CIWA-Ar Total Score: 14 - Admission Criteria OASAS Guidelines: Admission for Medically Managed Detox: Requires at least one of the followin. CIWA greater than 12 2. Seizures within the past 24 hours 3. Delirium tremens within the past 24 hours 4. Hallucinations within the past 24 hours 5. Acute intervention needed for co occurring medical disorder 6. Acute intervention needed for co occurring psychiatric disorder 7. Severe withdrawal that cannot be handled at a lower level of care (continued vomiting, continued diarrhea, abnormal vital signs) requiring intravenous medication and/or fluids 8. Patient presents the following: CIWA greater than 12 Admission Criteria Met: Admission criteria met Admission ROS [facility] - [facility] Chief Complaint: i need help to stop drinking alcohol Allergies/Adverse Reactions: Allergies Allergy/AdvReac Type Severity Reaction Status Date / Time influenza virus vaccine ts Allergy Severe Swelling Verified 07/21/18 17:42 [From Fluarix] pneumococcal vaccine Allergy Severe Swelling Verified 07/21/18 17:42 [Pneumococcal Vaccine] History of Present Illness: this 53 years old male with alcohol dependence,seeking detox,withdrawal symptom, multiple admissions in detox,last treatment [facility] 04/25/18 to 04/29/18 seen in er at [facility] and refer for detox syncope last 3 weeks ago history of hypertension,gout,type 2 dm depression,schizophrenia longest period of sobriety 3 months plan o go to rehab Exam Limitations: No Limitations - Ebola screening Have you traveled outside of the country in the last 21 days: No Have you been sick,other than usual withdrawal symptoms: No - Review of Systems Constitutional: Loss of Appetite, Malaise, Night Sweats, Changes in sleep, Weakness EENT: reports: Nose Congestion Respiratory: reports: No Symptoms reported Cardiac: reports: No Symptoms Reported GI: reports: Nausea, Indigestion, Abdominal cramping : reports: No Symptoms Reported Musculoskeletal: reports: Back Pain, Muscle Pain Integumentary: reports: Dryness Neuro: reports: Headache, Tremors Endocrine: reports: No Symptoms Reported Hematology: reports: No Symptoms Reported Psychiatric: reports: No Sypmtoms Reported, Judgement Intact, Mood/Affect Appropiate, Orientated x3 Patient History - Patient Medical History Hx Anemia: No Hx Asthma: No Hx Chronic Obstructive Pulmonary Disease (COPD): No Hx Cancer: No Hx Cardiac Disorders: No Hx Congestive Heart Failure: No Hx Hypertension: Yes (on med) Hx Hypercholesterolemia: Yes (ON MED) Hx Pacemaker: No Hx Seizures: No Hx Dementia: No Hx Diabetes: Yes (NIDDM) Hx Gastrointestinal Disorders: Yes (ACID REFLUX) Hx Liver Disease: No Hx Genitourinary Disorders: No Hx Sexually Transmitted Disorders: No Hx Renal Disease (ESRD): No Hx Thyroid Disease: No Hx Human Immunodeficiency Virus (HIV): No (NEGATIVE HX last 2017 negative) Hx Hepatitis C: No Hx Depression: Yes Hx Suicide Attempt: No Hx Bipolar Disorder: No Hx Schizophrenia: Yes Other Medical History: no suicidal,no homicidal - Patient Surgical History Past Surgical History: No Hx Neurologic Surgery: No Hx Cataract Extraction: No Hx Cardiac Surgery: No Hx Lung Surgery: No Hx Breast Surgery: No Hx Breast Biopsy: No Hx Abdominal Surgery: No Hx Appendectomy: No Hx Cholecystectomy: No Hx Genitourinary Surgery: No Hx Section: No Hx Orthopedic Surgery: No Anesthesia Reaction: No - PPD History Previous Implant?: Yes Documented Results: Negative w/proof Implanted On Prior [facility] Admission?: Yes Date: 01/25/18 Results: 0 mm PPD to be Administered?: No - Smoking Cessation Smoking history: Current every day smoker Have you smoked in the past 12 months: Yes Aproximately how many cigarettes per day: 6 Cigars Per Day: 0 Hx Chewing Tobacco Use: No Initiated information on smoking cessation: Yes 'Breaking Loose' booklet given: 07/21/18 - Substance & Tx. History Hx Alcohol Use: Yes Hx Substance Use: No Substance Use Type: Alcohol Hx Substance Use Treatment: Yes ([facility] 04/25/18 to 04/29/18) - Substances Abused Alcohol Route: Oral Frequency: Daily Amount used: 1pint of vodka/ 11 of 16 ozs of beer Age of first use: 14 Date of Last Use: 07/20/18 Family Disease History - Family Disease History Family Disease History: Other: Father (alcohol,), Mother (), Brother (alcohol) Admission Physical Exam [facility] - Vital Signs Vital Signs: Vital Signs - 24 hr 11/11/18 15:39 Temperature 98.2 F Pulse Rate 101 H Respiratory 18 Rate Blood Pressure 185/116 H - Physical General Appearance: Yes: Moderate Distress, Tremorous, Irritable, Sweating, Anxious HEENTM: Yes: Normal ENT Inspection, GRACIELA, Pharynx Normal Respiratory: Yes: Lungs Clear, Normal Breath Sounds, No Respiratory Distress Neck: Yes: Within Normal Limits, Supple, Trachea in good position Breast: Yes: Within Normal Limits Cardiology: Yes: Tachycardia Abdominal: Yes: Within Normal Limits, Normal Bowel Sounds, Non Tender, Soft Genitourinary: Yes: Within Normal Limits Back: Yes: Within Normal Limits Musculoskeletal: Yes: Back pain, Muscle Pain Extremities: Yes: Normal Range of Motion, Tremors, Other (history of gout) 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: 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 NML intact, Fully Oriented, Alert, Motor Strength 5/5 Integumentary: Yes: Dry Lymphatic: Yes: Within Normal Limits - Diagnostic (1) Alcohol dependence with uncomplicated withdrawal Current Visit: No Status: Acute (2) Nicotine dependence Current Visit: No Status: Acute Qualifiers: Nicotine product type: cigarettes Substance use status: in withdrawal Qualified Code(s): F17.213 - Nicotine dependence, cigarettes, with withdrawal (3) DM (diabetes mellitus), type 2 Current Visit: No Status: Chronic 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: without snf use Diabetes mellitus complication status: without complication Qualified Code(s): E11.9 - Type 2 diabetes mellitus without complications (4) HTN (hypertension) Current Visit: No Status: Chronic Qualifiers: Hypertension type: essential hypertension Qualified Code(s): I10 - Essential (primary) hypertension (5) Hyperlipidemia Current Visit: No Status: Chronic Qualifiers: Hyperlipidemia type: unspecified Qualified Code(s): E78.5 - Hyperlipidemia , unspecified (6) Morbid obesity Current Visit: No Status: Chronic (7) Nicotine dependence Current Visit: No Status: Chronic Qualifiers: Nicotine product type: cigarettes Substance use status: uncomplicated Qualified Code(s): F17.210 - Nicotine dependence, cigarettes, uncomplicated (8) Schizophrenia Current Visit: No Status: Chronic Comment: As per patient's report. (9) Gout Current Visit: Yes Status: Acute Cleared for Admission S - Detox or Rehab [facility] Level of Care: Medically Managed Detox Regimen/Protocol: Librium S Breath Alcohol Content Breath Alcohol Content: 0 Urine Drug Screen - Results Drug Screen Negative: No Urine Drug Screen Results: BZO-Benzodiazepines
[2018-07-21] MEDS: metFORMIN HCL 500 MG TABLET (FP) PO SCH (19:09)
[2018-07-21] MEDS ORDERED: chlordiazePOXIDE HCL 25 MG CAPSULE PO PRN (19:27)
[2018-07-21] MEDS ORDERED: MENTHOL/PHENOL 1 EACH UD MM PRN (19:27)
[2018-07-21] MEDS ORDERED: IBUPROFEN 400 MG TABLET (FP) PO PRN (19:27)
[2018-07-21] MEDS ORDERED: MAG HYDROX/AL HYDROX/SIMETH 30 ML UNIT-DOSE CUP PO PRN (19:27)
[2018-07-21] MEDS ORDERED: LOPERAMIDE HCL 2 MG CAPSULE PO PRN (19:27)
[2018-07-21] MEDS ORDERED: MAGNESIUM HYDROX 2400MG/30ML ORAL SUSPENSION 30 ML CUP PO PRN (19:27)
[2018-07-21] MEDS ORDERED: P-EPHED 60MG/TRIPROLIDI 2.5MG TABLET PO PRN (19:27)
[2018-07-21] MEDS ORDERED: hydrOXYzine PAMOATE 50 MG CAPSULE (FP) PO PRN (19:27)
[2018-07-21] MEDS ORDERED: guaiFENesin/D-METHORPHAN HB 10 ML UNIT-DOSE CUPS PO PRN (19:27)
[2018-07-21] MEDS ORDERED: MAGNESIUM CITRATE 300 ML BOTTLE PO PRN (19:27)
[2018-07-21] MEDS: ACETAMINOPHEN 325 MG TABLET (FP) PO PRN (19:47)
[2018-07-21] MEDS ORDERED: MELATONIN 5 MG TABLETS PO PRN (22:00)
[2018-07-21] MEDS: ATORVASTATIN CA 80 MG TABLET (FP) PO SCH (22:19)
[2018-07-21] MEDS: THIAMINE HCL 100 MG TABLET (FP) PO SCH (22:19)
[2018-07-21] MEDS: METOPROLOL TARTRATE 50 MG TABLET (FP) PO SCH (22:20)
[2018-07-21] MEDS: chlordiazePOXIDE HCL 25 MG CAPSULE PO SCH (22:20)
[2018-07-22] MEDS: chlordiazePOXIDE HCL 25 MG CAPSULE PO SCH ×4 (05:53→22:31)
[2018-07-22] MEDS: metFORMIN HCL 500 MG TABLET (FP) PO SCH ×2 (07:27→17:44)
[2018-07-22 10:21] LABS: HEMATOCRIT 33.3 % (35.4-49); HEMOGLOBIN 10.9 GM/dL (11.7-16.9); MCHC 32.7 g/dl (32.0-35.9); MEAN CELL VOLUME 88.8 fl (80-96); MEAN PLT VOLUME 10.2 fl (7.5-11.1); PLATELET COUNT 135 K/MM3 (134-434); RBC 3.76 M/mm3 (4.00-5.60); RDW 16.3 % (11.9-15.9)
[2018-07-22] MEDS: PANTOPRAZOLE 40 MG TABLET (FP) PO SCH (10:31)
[2018-07-22] MEDS: PRENATAL VITAMINS W/ FOLIC ACID TABLET (FP) PO SCH (10:31)
[2018-07-22] MEDS: METOPROLOL TARTRATE 50 MG TABLET (FP) PO SCH ×2 (10:31→22:31)
[2018-07-22] MEDS: ACETAMINOPHEN 325 MG TABLET (FP) PO PRN ×3 (10:33→22:33)
[2018-07-22 10:37] LABS: ALBUMIN 2.9 g/dl (3.4-5.0); ALK PHOS 79 U/L (45-117); ANION GAP 5 MMOL/L (8-16); BILIRUBIN,TOTAL 0.2 mg/dL (0.2-1); BLOOD UREA NITROGEN 9 mg/dL (7-18); CALCIUM 8.6 mg/dL (8.5-10.1); CHLORIDE 106 mmol/L (98-107); CO2 30 mmol/L (21-32); CREATININE 0.8 mg/dL (0.55-1.3); GLUCOSE,RANDOM 82 mg/dL (74-106); POTASSIUM 3.7 mmol/L (3.5-5.1); SGOT/AST 26 U/L (15-37); SGPT/ALT 32 U/L (13-61); SODIUM 142 mmol/L (136-145); TOT PROT 6.3 g/dl (6.4-8.2)
--- NOTE | 2018-07-22 10:51 | EKG ---
Test Reason : Blood Pressure : / mmHG Vent. Rate : 106 BPM Atrial Rate : 106 BPM P-R Int : 158 ms QRS Dur : 066 ms QT Int : 340 ms P-R-T Axes : 061 002 028 degrees QTc Int : 451 ms SINUS TACHYCARDIA OTHERWISE NORMAL ECG WHEN COMPARED WITH ECG OF 25-APR-2018 14:36, NO SIGNIFICANT CHANGE WAS FOUND Confirmed by RADHA SPARKS MD ([id number]) on 07/22/2018 10:51:02 AM Referred By: Amber Castellon Confirmed By:RADHA SPARKS MD
[2018-07-22] MEDS: ALLOPURINOL 100 MG TABLET (FP) PO SCH (11:15)
[2018-07-22] MEDS: COLCHICINE 0.6 MG TABLET (FP) PO SCH (11:15)
--- NOTE | 2018-07-22 18:09 | CONSULT ---
[facility] Psychiatric Consult - Data Date of interview: 07/22/18 Admission source: [facility] Identifying data: Readmission to [facility] for this 53 y/o AA male seeking detoxification treatment, on , for alcohol dependence. Patient is single without dependents, domiciled, unemployed and supported on SSI benefits. Substance Abuse History: Discussed with the patient. In this interview. Confirms enduring history of alcohol abuse. Details in current [facility] report : Smoking history: Current every day smoker. Have you smoked in the past 12 months: Yes. Aproximately how many cigarettes per day: 6. Cigars Per Day: 0. Hx Chewing Tobacco Use: No. Initiated information on smoking cessation: Yes. ' Breaking Loose' booklet given: 07/21/18. - Substance & Tx. History. Hx Alcohol Use: Yes. Hx Substance Use: No. Substance Use Type: Alcohol. Hx Substance Use Treatment: Yes ([facility] 04/25/18 to 04/29/18). - Substances Abused. Alcohol. Route: Oral. Frequency: Daily. Amount used: 1pint of vodka/ 11 of 16 ozs of beer. Age of first use: 14. Date of Last Use: 07/20/18 Medical History: Medical profile is remarkable for : gout, arthritis, GERD, dyslipidemia, diabetes mellitus, hypertension and a history of sleep apnea. Psychiatric History: Already known history of multiple psychiatric hospitalizations ([facility], [facility], [facility]). Patient declares that he has been diagnosed with MDD and Schizophrenia. Onset of emotional disturbances : age 17. Mr Selby reports current OPD care at one of the [facility] in the [place] (name not recalled). Managed on a regimen of 400 mg/hs + zoloft 100 mg/day (tech writer has not been able to verify thes doses). Patient denies history of suicide attempts. Physical/Sexual Abuse/Trauma History: Patient denies. Additional Comment: Urine Drug Screen Results: BZO-Benzodiazepines. Noted. Mental Status Exam - Mental Status Exam Alert and Oriented to: Time, Place, Person Cognitive Function: Good Patient Appearance: Well Groomed Mood: Withdrawn Affect: Appropriate, Normal Range Patient Behavior: Fatigued, Cooperative Speech Pattern: Clear, Appropriate Voice Loudness: Normal Thought Process: Goal Oriented Thought Disorder: Not Present Hallucinations: Denies Suicidal Ideation: Denies Homicidal Ideation: Denies Insight/Judgement: Poor Sleep: Poorly, Difficulty falling asleep Appetite: Good Muscle strength/Tone: Normal Gait/Station: Normal Psychiatric Findings - Problem List (Telephone 1, 2,3) (1) Alcohol dependence with uncomplicated withdrawal Current Visit: Yes Status: Acute (2) Nicotine dependence Current Visit: Yes Status: Acute Qualifiers: Nicotine product type: cigarettes Substance use status: in withdrawal Qualified Code(s): F17.213 - Nicotine dependence, cigarettes, with withdrawal (3) Schizoaffective disorder Current Visit: Yes Status: Suspected (4) Substance induced mood disorder Current Visit: Yes Status: Acute (5) Insomnia Current Visit: Yes Status: Acute - Initial Treatment Plan Initial Treatment Plan: Psychoeducation. Sleep hygiene. Detoxification in progress. AA meetings. Relapse prevention : methods revisited with patient (12 step, naltrexone, acamprosate, counseling). Encouraged to adhere to psychiatric OPD care. Medications : zoloft 100 mg po daily + seroquel 200 mg po hs (reduced as caution against oversedation). Will titrate if clinically indicated / if no sedation. Side effects/benefits of both drugs are discussed with patient. Mr Selby is in agreement with this careplan. Observation.
--- NOTE | 2018-07-22 19:03 | PN ---
[facility] CIWA - CIWA Score Nausea/Vomitin Muscle Tremors: 3 Anxiety: 3 Agitation: 2 Paroxysmal Sweats: 3 Orientation: 0-Oriented Tacttile Disturbances: 0-None Auditory Disturbances: 0-None Visual Disturbances: 0-None Headache: 0-None Present CIWA-Ar Total Score: 13 S Progress Note (SOAP) Subjective: leg pain sweat fever Objective: 07/22/18 19:00 A & o X 3 IN BED Vital Signs Temperature 97.9 F 07/22/18 18:04 Pulse Rate 77 07/22/18 18:04 Respiratory Rate 16 07/22/18 18:04 Blood Pressure 161/92 07/22/18 18:04 O2 Sat by Pulse Oximetry (%) Laboratory Last Values WBC 4.0 K/mm3 (4.0-10.0) 07/22/18 07:00 RBC 3.76 M/mm3 (4.00-5.60) L 07/22/18 07:00 Hgb 10.9 GM/dL (11.7-16.9) L 07/22/18 07:00 Hct 33.3 % (35.4-49) L 07/22/18 07:00 MCV 88.8 fl (80-96) 07/22/18 07:00 MCH 29.0 pg (25.7-33.7) 07/22/18 07:00 MCHC 32.7 g/dl (32.0-35.9) 07/22/18 07:00 RDW 16.3 % (11.9-15.9) H 07/22/18 07:00 Plt Count 135 K/MM3 (134-434) D 07/22/18 07:00 MPV 10.2 fl (7.5-11.1) 07/22/18 07:00 Sodium 142 mmol/L (136-145) 07/22/18 07:00 Potassium 3.7 mmol/L (3.5-5.1) 07/22/18 07:00 Chloride 106 mmol/L (98-107) 07/22/18 07:00 Carbon Dioxide 30 mmol/L (21-32) 07/22/18 07:00 Anion Gap 5 MMOL/L (8-16) L 07/22/18 07:00 BUN 9 mg/dL (7-18) 07/22/18 07:00 Creatinine 0.8 mg/dL (0.55-1.3) 07/22/18 07:00 Creat Clearance w eGFR > 60 (>60) 07/22/18 07:00 POC Glucometer 145 UNITS (80-120) 07/22/18 16:16 Random Glucose 82 mg/dL (74-106) 07/22/18 07:00 Calcium 8.6 mg/dL (8.5-10.1) 07/22/18 07:00 Total Bilirubin 0.2 mg/dL (0.2-1) 07/22/18 07:00 AST 26 U/L (15-37) 07/22/18 07:00 ALT 32 U/L (13-61) 07/22/18 07:00 Alkaline Phosphatase 79 U/L (45-117) 07/22/18 07:00 Total Protein 6.3 g/dl (6.4-8.2) L 07/22/18 07:00 Albumin 2.9 g/dl (3.4-5.0) L 07/22/18 07:00 RPR Titer Nonreactive (NONREACTIVE) 07/22/18 07:00 LABS NOTED LOW H & HGB UA PENDING Assessment: 07/22/18 19:02 WITHDRAWAL SX Plan: CONTINUE DETOX FEOSOL
[2018-07-22] MEDS: THIAMINE HCL 100 MG TABLET (FP) PO SCH (22:31)
[2018-07-22] MEDS: ATORVASTATIN CA 80 MG TABLET (FP) PO SCH (22:31)
[2018-07-22] MEDS: QUEtiapine FUMARATE 200 MG TABLET PO SCH (22:31)
[2018-07-23] MEDS: chlordiazePOXIDE HCL 25 MG CAPSULE PO SCH ×3 (06:45→17:33)
[2018-07-23] MEDS: metFORMIN HCL 500 MG TABLET (FP) PO SCH ×2 (07:54→17:32)
[2018-07-23] MEDS: FERROUS SO4 325 MG TABLET (FP) PO SCH ×2 (07:54→17:32)
[2018-07-23] MEDS: ALLOPURINOL 100 MG TABLET (FP) PO SCH (10:30)
[2018-07-23] MEDS: COLCHICINE 0.6 MG TABLET (FP) PO SCH (10:30)
[2018-07-23] MEDS: SERTRALINE HCL 50 MG TABLET (FP) PO SCH (10:30)
[2018-07-23] MEDS: METOPROLOL TARTRATE 50 MG TABLET (FP) PO SCH ×2 (10:30→22:23)
[2018-07-23] MEDS: PRENATAL VITAMINS W/ FOLIC ACID TABLET (FP) PO SCH (10:30)
[2018-07-23] MEDS: PANTOPRAZOLE 40 MG TABLET (FP) PO SCH (10:31)
--- NOTE | 2018-07-23 11:10 | PN ---
S CIWA - CIWA Score Nausea/Vomitin-No Nausea/No Vomiting Muscle Tremors: None Anxiety: 3 Agitation: 3 Paroxysmal Sweats: 2 Orientation: 0-Oriented Tacttile Disturbances: 0-None Auditory Disturbances: 0-None Visual Disturbances: 0-None Headache: 0-None Present CIWA-Ar Total Score: 8 BHS Progress Note (SOAP) Subjective: PATIENT C/O INTERMITTENT ANXIETY, RESTLESSNESS, INTERRUPTED SLEEP AND CHILLS. Objective: 07/23/18 11:08 Vital Signs Temperature 97.1 F L 07/23/18 09:10 Pulse Rate 92 H 07/23/18 09:10 Respiratory Rate 18 07/23/18 09:10 Blood Pressure 119/75 07/23/18 09:10 O2 Sat by Pulse Oximetry (%) Laboratory Tests 07/22/18 07/22/18 07/22/18 05:52 07:00 07:00 WBC 4.0 RBC 3.76 L Hgb 10.9 L Hct 33.3 L MCV 88.8 MCH 29.0 MCHC 32.7 RDW 16.3 H Plt Count 135 D MPV 10.2 Sodium 142 Potassium 3.7 Chloride 106 Carbon Dioxide 30 Anion Gap 5 L BUN 9 Creatinine 0.8 Creat Clearance w eGFR > 60 POC Glucometer 100 Random Glucose 82 Calcium 8.6 Total Bilirubin 0.2 AST 26 ALT 32 Alkaline Phosphatase 79 Total Protein 6.3 L Albumin 2.9 L RPR Titer 07/22/18 07/22/18 07/23/18 07:00 16:16 07:54 WBC RBC Hgb Hct MCV MCH MCHC RDW Plt Count MPV Sodium Potassium Chloride Carbon Dioxide Anion Gap BUN Creatinine Creat Clearance w eGFR POC Glucometer 145 120 Random Glucose Calcium Total Bilirubin AST ALT Alkaline Phosphatase Total Protein Albumin RPR Titer Nonreactive PE: ALERT AND ORIENTED SKIN WARM, MILD FACIAL MOISTURE ANXIOUS EXT FULL ROM, AMB AD ARIE Assessment: 07/23/18 11:09 WITHDRAWAL SYNDROME Plan: CONTINUE DETOX ENCOURAGE ORAL FLUIDS CONTINUE TO MONITOR
[2018-07-23] MEDS: ACETAMINOPHEN 325 MG TABLET (FP) PO PRN (17:31)
[2018-07-23] MEDS: chlordiazePOXIDE 5 MG CAPSULE PO SCH (22:23)
[2018-07-23] MEDS: THIAMINE HCL 100 MG TABLET (FP) PO SCH (22:23)
[2018-07-23] MEDS: ATORVASTATIN CA 80 MG TABLET (FP) PO SCH (22:23)
[2018-07-23] MEDS: QUEtiapine FUMARATE 200 MG TABLET PO SCH (22:24)
[2018-07-23 23:02] LABS: URINE APPEARANCE CLEAR; URINE BILIRUBIN NEGATIVE (<2.0 mg/dL); URINE COLOR LTYELLOW; URINE GLUCOSE (UA) NEGATIVE (NEGATIVE); URINE KETONE NEGATIVE (NEGATIVE); URINE LEUK ESTERASE NEGATIVE (NEGATIVE); URINE NITRITE NEGATIVE (NEGATIVE); URINE PROTEIN NEGATIVE (NEGATIVE); URINE UROBILINOGEN NEGATIVE mg/dL (0.2-1.0)
[2018-07-24] MEDS: chlordiazePOXIDE 5 MG CAPSULE PO SCH ×3 (06:08→17:20)
[2018-07-24] MEDS: ACETAMINOPHEN 325 MG TABLET (FP) PO PRN ×2 (06:09→12:29)
[2018-07-24] MEDS: metFORMIN HCL 500 MG TABLET (FP) PO SCH ×2 (06:09→17:23)
[2018-07-24] MEDS: FERROUS SO4 325 MG TABLET (FP) PO SCH ×2 (07:56→17:20)
[2018-07-24] MEDS: PANTOPRAZOLE 40 MG TABLET (FP) PO SCH (10:25)
[2018-07-24] MEDS: ALLOPURINOL 100 MG TABLET (FP) PO SCH (10:25)
[2018-07-24] MEDS: COLCHICINE 0.6 MG TABLET (FP) PO SCH (10:25)
[2018-07-24] MEDS: PRENATAL VITAMINS W/ FOLIC ACID TABLET (FP) PO SCH (10:25)
[2018-07-24] MEDS: SERTRALINE HCL 50 MG TABLET (FP) PO SCH (10:25)
--- NOTE | 2018-07-24 10:52 | PN ---
[facility] Progress Note Note: PATIENT CONTINUES WITH DETOX REGIMEN. STATES HE FEEL BETTER. C/O JOINT PAIN WITH MINIMAL RELIEF OF PAIN WITH CURRENT DOSE OF IBUPROFEN. +H/O GOUT. Vital Signs Temperature 97.6 F 07/24/18 09:25 Pulse Rate 73 07/24/18 09:25 Respiratory Rate 18 07/24/18 09:25 Blood Pressure 117/79 07/24/18 09:25 O2 Sat by Pulse Oximetry (%) Laboratory Tests 07/22/18 07/22/18 07/22/18 05:52 07:00 07:00 WBC 4.0 RBC 3.76 L Hgb 10.9 L Hct 33.3 L MCV 88.8 MCH 29.0 MCHC 32.7 RDW 16.3 H Plt Count 135 D MPV 10.2 Sodium 142 Potassium 3.7 Chloride 106 Carbon Dioxide 30 Anion Gap 5 L BUN 9 Creatinine 0.8 Creat Clearance w eGFR > 60 POC Glucometer 100 Random Glucose 82 Calcium 8.6 Total Bilirubin 0.2 AST 26 ALT 32 Alkaline Phosphatase 79 Total Protein 6.3 L Albumin 2.9 L Urine Color Urine Appearance Urine pH Ur Specific Sullivan Urine Protein Urine Glucose (UA) Urine Ketones Urine Blood Urine Nitrite Urine Bilirubin Urine Urobilinogen Ur Leukocyte Esterase RPR Titer 07/22/18 07/22/18 07/23/18 07:00 16:16 07:54 WBC RBC Hgb Hct MCV MCH MCHC RDW Plt Count MPV Sodium Potassium Chloride Carbon Dioxide Anion Gap BUN Creatinine Creat Clearance w eGFR POC Glucometer 145 120 Random Glucose Calcium Total Bilirubin AST ALT Alkaline Phosphatase Total Protein Albumin Urine Color Urine Appearance Urine pH Ur Specific Sullivan Urine Protein Urine Glucose (UA) Urine Ketones Urine Blood Urine Nitrite Urine Bilirubin Urine Urobilinogen Ur Leukocyte Esterase RPR Titer Nonreactive 07/23/18 07/23/18 07/24/18 16:20 18:23 06:08 WBC RBC Hgb Hct MCV MCH MCHC RDW Plt Count MPV Sodium Potassium Chloride Carbon Dioxide Anion Gap BUN Creatinine Creat Clearance w eGFR POC Glucometer 97 120 Random Glucose Calcium Total Bilirubin AST ALT Alkaline Phosphatase Total Protein Albumin Urine Color Ltyellow Urine Appearance Clear Urine pH 7.0 D Ur Specific Sullivan 1.012 Urine Protein Negative Urine Glucose (UA) Negative Urine Ketones Negative Urine Blood Negative Urine Nitrite Negative Urine Bilirubin Negative Urine Urobilinogen Negative Ur Leukocyte Esterase Negative RPR Titer A/P: WITHDRAWAL SX CONTINUE DETOX INCREASE IBUPROFEN TO 600MG PRN ENCOURAGE ORAL FLUIDS CONTINUE TO MONITOR CLINICALLY
[2018-07-24] MEDS: METOPROLOL TARTRATE 50 MG TABLET (FP) PO SCH ×2 (11:01→22:17)
[2018-07-24] MEDS: IBUPROFEN 600 MG TABLET (FP) PO PRN (17:20)
[2018-07-24] MEDS: chlordiazePOXIDE HCL 10 MG CAPSULE PO SCH (22:17)
[2018-07-24] MEDS: QUEtiapine FUMARATE 200 MG TABLET PO SCH (22:17)
[2018-07-24] MEDS: ATORVASTATIN CA 80 MG TABLET (FP) PO SCH (22:17)
[2018-07-24] MEDS: THIAMINE HCL 100 MG TABLET (FP) PO SCH (22:17)
[2018-07-25] MEDS: chlordiazePOXIDE HCL 10 MG CAPSULE PO SCH (05:24)
[2018-07-25] MEDS: IBUPROFEN 600 MG TABLET (FP) PO PRN (05:24)
[2018-07-25] MEDS: metFORMIN HCL 500 MG TABLET (FP) PO SCH (07:41)
[2018-07-25] MEDS: FERROUS SO4 325 MG TABLET (FP) PO SCH (08:13)
[2018-07-25 09:18] VITALS: BP 156/96; PULSE 87; TEMP 97
[2018-07-25] MEDS: PANTOPRAZOLE 40 MG TABLET (FP) PO SCH (10:11)
[2018-07-25] MEDS: PRENATAL VITAMINS W/ FOLIC ACID TABLET (FP) PO SCH (10:11)
[2018-07-25] MEDS: ALLOPURINOL 100 MG TABLET (FP) PO SCH (10:11)
[2018-07-25] MEDS: COLCHICINE 0.6 MG TABLET (FP) PO SCH (10:11)
[2018-07-25] MEDS: METOPROLOL TARTRATE 50 MG TABLET (FP) PO SCH (10:11)
[2018-07-25] MEDS: SERTRALINE HCL 50 MG TABLET (FP) PO SCH (10:11)
--- NOTE | 2018-07-25 10:14 | DS ---
[facility] Detox Discharge Summary Admission Date: 07/21/18 Discharge Date: 07/25/18 - History Present History: Alcohol Dependence - Physical Exam Results Vital Signs: Vital Signs Temperature 97.0 F L 07/25/18 09:17 Pulse Rate 87 07/25/18 09:17 Respiratory Rate 18 07/25/18 09:17 Blood Pressure 156/96 07/25/18 09:17 O2 Sat by Pulse Oximetry (%) Pertinent Admission Physical Exam Findings: PATIENT COMPLETED DETOX WITHOUT ADVERSE EVENT. PATIENT MEDICALLY STABLE. DENIES SI/HI. ALERT AND ORIENTED X 3. AMB AD ARIE. PATIENT ACCEPTED REHAB REFERRAL TO [facility]. PATIENT ENCOURAGED TO COMPLETE REHAB TO PREVENT RELAPSE. D/C INSTRUCTIONS PROVIDE BY STAFF AND GIVEN TO PATIENT. - Treatment Hospital Course: Detox Protocol Followed, Detoxed Safely, Responded well, Discharged Condition Good, Rehab Referral Accepted - Medication Discharge Medications: Ambulatory Orders Metoprolol Tartrate [Lopressor] 100 mg PO BID 10/04/17 Quetiapine Fumarate [Seroquel -] 400 mg PO HS 10/04/17 Sertraline HCl [Zoloft -] 100 mg PO DAILY 10/04/17 Atorvastatin Ca [Lipitor] 80 mg PO HS #30 tablet 01/24/18 Allopurinol [Zyloprim -] 100 mg PO DAILY 04/25/18 Colchicine [Colcrys -] 0.6 mg PO DAILY 04/25/18 Metformin HCl [Glucophage] 500 mg PO BID 04/25/18 Pantoprazole Sodium [Protonix -] 40 mg PO DAILY 04/25/18 Sulfamethoxazole/Trimethoprim [Sulfamethoxazole-Tmp Ds Tablet] 1 each PO BID 07/28 - Diagnosis (1) Alcohol dependence with uncomplicated withdrawal Current Visit: Yes Status: Resolved - AMA Did Patient Leave Against Medical Advice: No
== END 2018-07-25 11:38 | disposition home or self-care (01) | DRG 775 ==
LOC: YASAS 15:37 → Y3N 17:40
PROC: HZ2ZZZZ Detoxification Services for Substance Abuse Treatment (ICD-10-PCS; principal; 2018-07-21)
DX: F10.230 Alcohol dependence with withdrawal, uncomplicated (principal); F17.213 Nicotine dependence, cigarettes, with withdrawal; F19.24 Other psychoactive substance dependence with psychoactive substance-induced mood disorder; F25.9 Schizoaffective disorder, unspecified; I10 Essential (primary) hypertension; K21.9 Gastro-esophageal reflux disease without esophagitis; E11.9 Type 2 diabetes mellitus without complications; Z79.84 Long term (current) use of oral hypoglycemic drugs; G47.00 Insomnia, unspecified; G47.30 Sleep apnea, unspecified; F32.9 Major depressive disorder, single episode, unspecified; M10.9 Gout, unspecified; E66.01 Morbid (severe) obesity due to excess calories; Z68.35 Body mass index [BMI] 35.0-35.9, adult
CPT/HCPCS: 36415; 80053; 81003; 82962; 85027; 86593; 93005; 93010

== ENCOUNTER 2018-11-04 09:04 | Inpatient (IN) | payer OTHER ==
[2018-11-04 09:29] VITALS: BMI 34.0
--- NOTE | 2018-11-04 09:53 | HP ---
CIWA Score Nausea/Vomitin Muscle Tremors: 3 Anxiety: 2 Agitation: 2 Paroxysmal Sweats: 1-Minimal Palms Moist Orientation: 0-Oriented Tacttile Disturbances: 1-Very Mild Itch/Numbness Auditory Disturbances: 1-Very Mild Visual Disturbances: 0-None Headache: 2-Mild CIWA-Ar Total Score: 14 - Admission Criteria OASAS Guidelines: Admission for Medically Managed Detox: Requires at least one of the followin. CIWA greater than 12 2. Seizures within the past 24 hours 3. Delirium tremens within the past 24 hours 4. Hallucinations within the past 24 hours 5. Acute intervention needed for co occurring medical disorder 6. Acute intervention needed for co occurring psychiatric disorder 7. Severe withdrawal that cannot be handled at a lower level of care (continued vomiting, continued diarrhea, abnormal vital signs) requiring intravenous medication and/or fluids 8. Patient presents the following: CIWA greater than 12 Admission Criteria Met: Admission criteria met Admission ROS S - HPI Chief Complaint: i nee help to stop drinking alcohol Allergies/Adverse Reactions: Allergies Allergy/AdvReac Type Severity Reaction Status Date / Time influenza virus vaccine ts Allergy Severe Swelling Verified 11/04/18 10:07 2012- [From Fluarix] pneumococcal vaccine Allergy Severe Swelling Verified 11/04/18 10:07 [Pneumococcal Vaccine] History of Present Illness: this 53 years old male with alcohol dependence,seeking detox,withdrawal symptom, multiple admissions in detox but keep relapsing, last detox in07/21/18 to 07/25/18 syncope alcohol related history of hypertension, nicotine dependence 6 to 8 cigarette/day anxiety,depression,insomnia on med plan for rehab after detox Exam Limitations: No Limitations - Ebola screening Have you traveled outside of the country in the last 21 days: No Have you had contact with anyone from an Ebola affected area: No Have you been sick,other than usual withdrawal symptoms: No - Review of Systems Constitutional: Chills, Loss of Appetite, Malaise, Night Sweats, Changes in sleep, Weakness, Unintentional Wgt. Loss EENT: reports: Nose Congestion Respiratory: reports: No Symptoms reported Cardiac: reports: Palpitations GI: reports: Diarrhea, Nausea, Vomiting, Abdominal cramping : reports: No Symptoms Reported Musculoskeletal: reports: Back Pain, Muscle Pain Integumentary: reports: Dryness Neuro: reports: Headache, Tremors Endocrine: reports: No Symptoms Reported Hematology: reports: No Symptoms Reported Psychiatric: reports: No Sypmtoms Reported, Judgement Intact, Mood/Affect Appropiate, Anxious, Depressed Other Systems: Reviewed and Negative (insomnia) Patient History - Patient Medical History Hx Anemia: No Hx Asthma: No Hx Chronic Obstructive Pulmonary Disease (COPD): No Hx Cancer: No Hx Cardiac Disorders: No Hx Congestive Heart Failure: No Hx Hypertension: Yes (on med) Hx Hypercholesterolemia: Yes (ON MED) Hx Pacemaker: No Hx Seizures: No Hx Dementia: No Hx Diabetes: Yes (NIDDM) Hx Gastrointestinal Disorders: Yes (ACID REFLUX) Hx Liver Disease: No Hx Genitourinary Disorders: No Hx Sexually Transmitted Disorders: No Hx Renal Disease (ESRD): No Hx Thyroid Disease: No Hx Human Immunodeficiency Virus (HIV): No (NEGATIVE HX last 2017 negative) Hx Hepatitis C: No Hx Depression: Yes Hx Suicide Attempt: No Hx Bipolar Disorder: No Hx Schizophrenia: Yes Other Medical History: no suicidal,no homicidal - Patient Surgical History Past Surgical History: No Hx Neurologic Surgery: No Hx Cataract Extraction: No Hx Cardiac Surgery: No Hx Lung Surgery: No Hx Breast Surgery: No Hx Breast Biopsy: No Hx Abdominal Surgery: No Hx Appendectomy: No Hx Cholecystectomy: No Hx Genitourinary Surgery: No Hx Section: No Hx Orthopedic Surgery: No Anesthesia Reaction: No - PPD History Previous Implant?: Yes Documented Results: Negative w/proof Date: 01/25/18 Results: 0 mm PPD to be Administered?: No - Smoking Cessation Smoking history: Current every day smoker Have you smoked in the past 12 months: Yes Aproximately how many cigarettes per day: 6 Cigars Per Day: 0 Hx Chewing Tobacco Use: No Initiated information on smoking cessation: Yes 'Breaking Loose' booklet given: 11/04/18 - Substance & Tx. History Hx Alcohol Use: Yes Hx Substance Use: Yes Substance Use Type: Alcohol Hx Substance Use Treatment: Yes (last [facility] 07/21/18 to 07/25/18) - Substances Abused Alcohol Route: Oral Frequency: Daily Amount used: 2pints of vodka/2 of 6 packs of 16 ozs of beer Age of first use: 14 Date of Last Use: 11/03/18 Family Disease History - Family Disease History Family Disease History: Other: Father (alcohol,), Mother (), Brother (alcohol) Admission Physical Exam [facility] - Vital Signs Vital Signs: Vital Signs - 24 hr 11/04/18 09:26 Temperature 98.6 F Pulse Rate 106 H Respiratory 17 Rate Blood Pressure 155/105 H - Physical General Appearance: Yes: Moderate Distress, Tremorous, Irritable, Sweating, Anxious HEENTM: Yes: Normal ENT Inspection, Normocephalic, GRACIELA, Pharynx Normal Respiratory: Yes: Lungs Clear, Normal Breath Sounds, No Respiratory Distress Neck: Yes: Within Normal Limits Breast: Yes: Within Normal Limits Cardiology: Yes: Within Normal Limits, Regular Rhythm, Regular Rate, S1, S2 Abdominal: Yes: Within Normal Limits, Normal Bowel Sounds, Non Tender, Flat, Soft Genitourinary: Yes: Within Normal Limits Back: Yes: Within Normal Limits, Normal Inspection, Muscle Spasm Musculoskeletal: Yes: Back pain, Muscle Pain Extremities: Yes: Tremors 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: Within Normal Limits, fire supervisor II-XII NML intact, Fully Oriented, Alert, Motor Strength 5/5 Integumentary: Yes: Dry, Other (deformity of fingers) Lymphatic: Yes: Within Normal Limits - Diagnostic (1) Gouty arthritis Current Visit: No Status: Chronic (2) HTN (hypertension) Current Visit: No Status: Chronic Qualifiers: Hypertension type: essential hypertension Qualified Code(s): I10 - Essential (primary) hypertension (3) Hyperlipidemia Current Visit: No Status: Chronic Qualifiers: Hyperlipidemia type: unspecified Qualified Code(s): E78.5 - Hyperlipidemia , unspecified (4) Nicotine dependence Current Visit: No Status: Chronic Qualifiers: Nicotine product type: cigarettes Substance use status: uncomplicated Qualified Code(s): F17.210 - Nicotine dependence, cigarettes, uncomplicated (5) Paranoid schizophrenia Current Visit: No Status: Chronic (6) Alcohol dependence with uncomplicated withdrawal Current Visit: No Status: Resolved (7) Syncope Current Visit: Yes Status: Acute (8) DM2 (diabetes mellitus, type 2) Current Visit: Yes Status: Acute Cleared for Admission [facility] - Detox or Rehab [facility] Level of Care: Medically Managed Detox Regimen/Protocol: Librium [facility] Breath Alcohol Content Breath Alcohol Content: 0.036 Urine Drug Screen - Results Drug Screen Negative: No Urine Drug Screen Results: BZO-Benzodiazepines Inpatient Rehab Admission - Rehab Decision to Admit Inpatient rehab admission?: No
[2018-11-04] MEDS ORDERED: IBUPROFEN 400 MG TABLET (FP) PO PRN (10:00)
[2018-11-04] MEDS ORDERED: P-EPHED 60MG/TRIPROLIDI 2.5MG TABLET PO PRN (10:00)
[2018-11-04] MEDS ORDERED: guaiFENesin/D-METHORPHAN HB 10 ML UNIT-DOSE CUPS PO PRN (10:00)
[2018-11-04] MEDS ORDERED: MAGNESIUM CITRATE 300 ML BOTTLE PO PRN (10:00)
[2018-11-04] MEDS ORDERED: hydrOXYzine PAMOATE 50 MG CAPSULE (FP) PO PRN (10:00)
[2018-11-04] MEDS ORDERED: LOPERAMIDE HCL 2 MG CAPSULE PO PRN (10:00)
[2018-11-04] MEDS ORDERED: MENTHOL/PHENOL 1 EACH UD MM PRN (10:00)
[2018-11-04] MEDS ORDERED: chlordiazePOXIDE HCL 25 MG CAPSULE PO PRN (10:00)
[2018-11-04] MEDS ORDERED: MAGNESIUM HYDROX 2400MG/30ML ORAL SUSPENSION 30 ML CUP PO PRN (10:00)
[2018-11-04] MEDS ORDERED: ACETAMINOPHEN 325 MG TABLET (FP) PO PRN (10:00)
[2018-11-04] MEDS ORDERED: MAG HYDROX/AL HYDROX/SIMETH 30 ML UNIT-DOSE CUP PO PRN (10:00)
--- NOTE | 2018-11-04 11:01 | CONSULT ---
[facility] Psychiatric Consult - Data Date of interview: 11/04/18 Admission source: [facility] Identifying data: This is a 53 years old obese male, single, childless, living alone, on SSI support, with history of Schixoaffective disorder, MDD, with no history of psychiatric hospitalizations, with alcohol and nicotine dependence, is here reporting alcohol withdrawal symptoms and seeking detox, Substance Abuse History: Smoking history: Current every day smoker. Have you smoked in the past 12 months: Yes. Aproximately how many cigarettes per day: 6. Cigars Per Day: 0. Hx Chewing Tobacco Use: No. Initiated information on smoking cessation: Yes. 'Breaking Loose' booklet given: 11/04/18. - Substance & Tx. History. Hx Alcohol Use: Yes. Hx Substance Use: Yes. Substance Use Type : Alcohol. Hx Substance Use Treatment: Yes (last [facility] 07/21/18 to 07/25/18). - Substances Abused. Alcohol. Route: Oral. Frequency: Daily. Amount used : 2pints of vodka/2 of 6 packs of 16 ozs of beer. Age of first use: 14. Date of Last Use: 11/03/18 Medical History: Obesity, Hyperlipidemia, L.Ankle injury, GERD, HTN, DM-II, Syncope history, Anemia history, Gout. Psychiatric History: Patient reports history of Schizophrenia and Bipolar Disorder, denies psychiatric hospitalization history, denies suyicidal, homicidal history, reports stable on current medications: Seroquel 400m,g po qhs. Zoloft 100mg poqd Physical/Sexual Abuse/Trauma History: Denies Additional Comment: Seroquel 400m,g po qhs. Zoloft 100mg poqd Mental Status Exam - Mental Status Exam Alert and Oriented to: Person Cognitive Function: Fair Patient Appearance: Well Groomed Mood: Anxious Affect: Mood Congruent Patient Behavior: Cooperative Speech Pattern: Appropriate Voice Loudness: Normal Thought Process: Circumstantial, Goal Oriented Thought Disorder: Being Controlled Suicidal Ideation: Denies Homicidal Ideation: Denies Insight/Judgement: Fair Sleep: Difficulty falling asleep Appetite: Weight gain Muscle strength/Tone: Normal Gait/Station: Shuffling Additional Comments: Seroquel 400m,g po qhs. Zoloft 100mg poqd Psychiatric Findings - Problem List (Wallis 1, 2,3) (1) DM2 (diabetes mellitus, type 2) Current Visit: Yes Status: Acute (2) Syncope Current Visit: Yes Status: Acute (3) Alcohol dependence Current Visit: No Status: Acute (4) Alcohol dependence, episodic drinking behavior Current Visit: No Status: Acute (5) Anemia Current Visit: No Status: Acute (6) Gout Current Visit: No Status: Acute (7) Left ankle pain Current Visit: No Status: Acute (8) MDD (major depressive disorder), recurrent, severe, with psychosis Current Visit: No Status: Acute (9) Substance induced mood disorder Current Visit: No Status: Acute (10) Anxiety and depression Current Visit: No Status: Chronic (11) DM (diabetes mellitus), type 2 Current Visit: No Status: Chronic Qualifiers: Diabetes mellitus chcf insulin use: without intermediate accountant use Diabetes mellitus complication status: without complication Qualified Code(s): E11.9 - Type 2 diabetes mellitus without complications (12) GERD (gastroesophageal reflux disease) Current Visit: No Status: Chronic Qualifiers: Esophagitis presence: esophagitis presence not specified Qualified Code(s) : K21.9 - Gastro-esophageal reflux disease without esophagitis (13) Gouty arthritis Current Visit: No Status: Chronic (14) HTN (hypertension) Current Visit: No Status: Chronic Qualifiers: Hypertension type: essential hypertension Qualified Code(s): I10 - Essential (primary) hypertension (15) History of sleep apnea Current Visit: No Status: Chronic (16) Hyperlipidemia Current Visit: No Status: Chronic Qualifiers: Hyperlipidemia type: unspecified Qualified Code(s): E78.5 - Hyperlipidemia , unspecified (17) MDD (major depressive disorder) Current Visit: No Status: Chronic Qualifiers: Major depression episode severity: unspecified Comment: As per records and self-report. (18) Morbid obesity Current Visit: No Status: Chronic (19) Nicotine dependence Current Visit: No Status: Chronic Qualifiers: Nicotine product type: cigarettes Substance use status: uncomplicated Qualified Code(s): F17.210 - Nicotine dependence, cigarettes, uncomplicated (20) Paranoid schizophrenia Current Visit: No Status: Chronic (21) Schizophrenia Current Visit: No Status: Chronic Comment: As per patient's report. (22) Sleep apnea Current Visit: No Status: Chronic (23) Schizoaffective disorder Current Visit: No Status: Suspected (24) Alcohol dependence with uncomplicated withdrawal Current Visit: No Status: Resolved (25) Severe episode of recurrent major depressive disorder, without psychotic features Current Visit: No Status: Ruled-out - Initial Treatment Plan Initial Treatment Plan: Seroquel 400m,g po qhs. Zoloft 100mg poqd
[2018-11-04] MEDS: NICOTINE 14 MG/24 HOURS TOPICAL PATCH TD SCH (12:06)
[2018-11-04] MEDS: chlordiazePOXIDE HCL 25 MG CAPSULE PO SCH ×3 (12:06→22:27)
[2018-11-04] MEDS: PRENATAL VITAMINS W/ FOLIC ACID TABLET (FP) PO SCH (14:59)
[2018-11-04] MEDS: SERTRALINE HCL 50 MG TABLET (FP) PO SCH (14:59)
[2018-11-04] MEDS: metFORMIN HCL 500 MG TABLET (FP) PO SCH (17:09)
[2018-11-04] MEDS ORDERED: METOPROLOL TARTRATE 50 MG TABLET (FP) PO ONE (17:30)
--- NOTE | 2018-11-04 17:31 | PN ---
S Progress Note Note: Vital Signs Temperature 91.1 F L 11/04/18 17:03 Pulse Rate 93 H 11/04/18 17:03 Respiratory Rate 18 11/04/18 17:03 Blood Pressure 179/101 H 11/04/18 17:03 O2 Sat by Pulse Oximetry (%) Patient did not take his AM dose of the metoprolol 100 mg BID. BP elevated. One time dose ordered for now. increase PO fluids check BP in an hour continue to monitor
[2018-11-04] MEDS ORDERED: MELATONIN 5 MG TABLETS PO PRN (22:00)
[2018-11-04] MEDS: ATORVASTATIN CA 80 MG TABLET (FP) PO SCH (22:27)
[2018-11-04] MEDS: METOPROLOL TARTRATE 50 MG TABLET (FP) PO SCH (22:27)
[2018-11-04] MEDS: QUEtiapine FUMARATE 400 MG TABLET PO SCH (22:27)
[2018-11-04] MEDS: NAPROXEN 500 MG TABLET (FP) PO SCH (22:27)
[2018-11-04] MEDS: THIAMINE HCL 100 MG TABLET (FP) PO SCH (22:28)
[2018-11-05] MEDS: chlordiazePOXIDE HCL 25 MG CAPSULE PO SCH ×4 (06:03→22:20)
[2018-11-05] MEDS: metFORMIN HCL 500 MG TABLET (FP) PO SCH ×2 (06:03→17:04)
[2018-11-05 10:05] LABS: HEMATOCRIT 37.1 % (35.4-49); HEMOGLOBIN 12.7 GM/dL (11.7-16.9); MCH 31.4 pg (25.7-33.7); MCHC 34.3 g/dl (32.0-35.9); MEAN CELL VOLUME 91.6 fl (80-96); MEAN PLT VOLUME 10.7 fl (7.5-11.1); PLATELET COUNT 188 K/MM3 (134-434); RBC 4.05 M/mm3 (4.00-5.60); WHITE BLOOD COUNT 3.1 K/mm3 (4.0-10.0)
[2018-11-05 10:07] LABS: ALBUMIN 3.6 g/dl (3.4-5.0); ALK PHOS 79 U/L (45-117); ANION GAP 9 MMOL/L (8-16); BILIRUBIN,TOTAL 0.2 mg/dL (0.2-1); BLOOD UREA NITROGEN 11 mg/dL (7-18); CHLORIDE 108 mmol/L (98-107); CO2 25 mmol/L (21-32); CREATININE 1.2 mg/dL (0.55-1.3); GLUCOSE,RANDOM 119 mg/dL (74-106); POTASSIUM 4.3 mmol/L (3.5-5.1); SGOT/AST 31 U/L (15-37); SGPT/ALT 28 U/L (13-61); SODIUM 142 mmol/L (136-145); TOT PROT 7.5 g/dl (6.4-8.2)
[2018-11-05] MEDS: PRENATAL VITAMINS W/ FOLIC ACID TABLET (FP) PO SCH (10:59)
[2018-11-05] MEDS: SERTRALINE HCL 50 MG TABLET (FP) PO SCH (10:59)
[2018-11-05] MEDS: NICOTINE 14 MG/24 HOURS TOPICAL PATCH TD SCH (10:59)
[2018-11-05] MEDS: METOPROLOL TARTRATE 50 MG TABLET (FP) PO SCH ×2 (10:59→22:20)
[2018-11-05] MEDS: PANTOPRAZOLE 40 MG TABLET (FP) PO SCH (10:59)
[2018-11-05] MEDS: NAPROXEN 500 MG TABLET (FP) PO SCH ×2 (10:59→22:20)
[2018-11-05] MEDS: ALLOPURINOL 100 MG TABLET (FP) PO SCH (11:00)
[2018-11-05] MEDS: COLCHICINE 0.6 MG TABLET (FP) PO SCH (11:00)
--- NOTE | 2018-11-05 11:02 | PN ---
S CIWA - CIWA Score Nausea/Vomitin-No Nausea/No Vomiting Muscle Tremors: 3 Anxiety: 3 Agitation: 3 Paroxysmal Sweats: 3 Orientation: 0-Oriented Tacttile Disturbances: 0-None Auditory Disturbances: 0-None Visual Disturbances: 0-None Headache: 0-None Present CIWA-Ar Total Score: 12 [facility] Progress Note (SOAP) Subjective: sweats body aches interrupted sleep shakes Objective: 11/05/18 11:01 Vital Signs Temperature 97.9 F 11/05/18 10:08 Pulse Rate 74 11/05/18 10:08 Respiratory Rate 18 11/05/18 10:08 Blood Pressure 150/95 11/05/18 10:08 O2 Sat by Pulse Oximetry (%) Laboratory Tests 11/04/18 11/04/18 11/05/18 10:20 16:35 06:00 WBC 3.1 L RBC 4.05 Hgb 12.7 Hct 37.1 MCV 91.6 MCH 31.4 MCHC 34.3 RDW 14.0 D Plt Count 188 D MPV 10.7 Sodium Potassium Chloride Carbon Dioxide Anion Gap BUN Creatinine Creat Clearance w eGFR POC Glucometer 146 124 Random Glucose Calcium Total Bilirubin AST ALT Alkaline Phosphatase Total Protein Albumin 11/05/18 11/05/18 06:00 06:02 WBC RBC Hgb Hct MCV MCH MCHC RDW Plt Count MPV Sodium 142 Potassium 4.3 Chloride 108 H Carbon Dioxide 25 Anion Gap 9 BUN 11 Creatinine 1.2 Creat Clearance w eGFR > 60 POC Glucometer 112 Random Glucose 119 H Calcium 9.0 Total Bilirubin 0.2 AST 31 ALT 28 Alkaline Phosphatase 79 Total Protein 7.5 Albumin 3.6 aaox3 ambulating no acute distress Assessment: 11/05/18 11:01 withdrawal sx Plan: continue detox increase fluids labs pending
[2018-11-05] MEDS: CYCLOBENZAPRINE HCL 10 MG TABLET (FP) PO PRN (11:03)
[2018-11-05] MEDS: QUEtiapine FUMARATE 400 MG TABLET PO SCH (22:20)
[2018-11-05] MEDS: ATORVASTATIN CA 80 MG TABLET (FP) PO SCH (22:20)
[2018-11-05] MEDS: THIAMINE HCL 100 MG TABLET (FP) PO SCH (22:20)
[2018-11-06] MEDS: chlordiazePOXIDE HCL 25 MG CAPSULE PO SCH (05:59)
[2018-11-06] MEDS: metFORMIN HCL 500 MG TABLET (FP) PO SCH ×2 (05:59→16:56)
[2018-11-06] MEDS: METOPROLOL TARTRATE 50 MG TABLET (FP) PO SCH ×2 (10:04→22:10)
[2018-11-06] MEDS: NICOTINE 14 MG/24 HOURS TOPICAL PATCH TD SCH (10:04)
[2018-11-06] MEDS: COLCHICINE 0.6 MG TABLET (FP) PO SCH (10:04)
[2018-11-06] MEDS: SERTRALINE HCL 50 MG TABLET (FP) PO SCH (10:04)
[2018-11-06] MEDS: NAPROXEN 500 MG TABLET (FP) PO SCH ×2 (10:04→22:11)
[2018-11-06] MEDS: PANTOPRAZOLE 40 MG TABLET (FP) PO SCH (10:04)
[2018-11-06] MEDS: PRENATAL VITAMINS W/ FOLIC ACID TABLET (FP) PO SCH (10:04)
[2018-11-06] MEDS: ALLOPURINOL 100 MG TABLET (FP) PO SCH (10:04)
[2018-11-06] MEDS: chlordiazePOXIDE 5 MG CAPSULE PO SCH ×3 (10:05→22:10)
--- NOTE | 2018-11-06 10:34 | PN ---
[facility] CIWA - CIWA Score Nausea/Vomitin-No Nausea/No Vomiting Muscle Tremors: 3 Anxiety: 2 Agitation: 3 Paroxysmal Sweats: 2 Orientation: 0-Oriented Tacttile Disturbances: 0-None Auditory Disturbances: 0-None Visual Disturbances: 0-None Headache: 0-None Present CIWA-Ar Total Score: 10 S Progress Note (SOAP) Subjective: low back pain sweats right shoulder pain Objective: 11/06/18 10:30 Vital Signs Temperature 98.2 F 11/06/18 09:28 Pulse Rate 79 11/06/18 09:28 Respiratory Rate 18 11/06/18 09:28 Blood Pressure 138/82 11/06/18 09:28 O2 Sat by Pulse Oximetry (%) Laboratory Tests 11/04/18 11/04/18 11/05/18 10:20 16:35 06:00 WBC 3.1 L RBC 4.05 Hgb 12.7 Hct 37.1 MCV 91.6 MCH 31.4 MCHC 34.3 RDW 14.0 D Plt Count 188 D MPV 10.7 Sodium Potassium Chloride Carbon Dioxide Anion Gap BUN Creatinine Creat Clearance w eGFR POC Glucometer 146 124 Random Glucose Calcium Total Bilirubin AST ALT Alkaline Phosphatase Total Protein Albumin RPR Titer 11/05/18 11/05/18 11/05/18 06:00 06:00 06:02 WBC RBC Hgb Hct MCV MCH MCHC RDW Plt Count MPV Sodium 142 Potassium 4.3 Chloride 108 H Carbon Dioxide 25 Anion Gap 9 BUN 11 Creatinine 1.2 Creat Clearance w eGFR > 60 POC Glucometer 112 Random Glucose 119 H Calcium 9.0 Total Bilirubin 0.2 AST 31 ALT 28 Alkaline Phosphatase 79 Total Protein 7.5 Albumin 3.6 RPR Titer Nonreactive 11/05/18 11/06/18 16:34 05:58 WBC RBC Hgb Hct MCV MCH MCHC RDW Plt Count MPV Sodium Potassium Chloride Carbon Dioxide Anion Gap BUN Creatinine Creat Clearance w eGFR POC Glucometer 136 132 Random Glucose Calcium Total Bilirubin AST ALT Alkaline Phosphatase Total Protein Albumin RPR Titer aaox3 ambulating no acute distress Assessment: 11/06/18 10:32 withdrawal sx Plan: continue detox increase fluids lidocaine patch motrin/tylenol prn analgesic balm
[2018-11-06] MEDS ORDERED: LIDOCAINE 5% TOPICAL PATCH TP ONE (10:37)
[2018-11-06] MEDS: ATORVASTATIN CA 80 MG TABLET (FP) PO SCH (22:11)
[2018-11-06] MEDS: THIAMINE HCL 100 MG TABLET (FP) PO SCH (22:11)
[2018-11-06] MEDS: QUEtiapine FUMARATE 400 MG TABLET PO SCH (22:11)
[2018-11-06] MEDS: METHYL SALICYLATE/MENTHOL OINT 30 GM TUBE TP SCH (22:37)
[2018-11-06] MEDS: LIDOCAINE PATCH REMOVAL MC SCH (22:38)
[2018-11-07] MEDS: chlordiazePOXIDE 5 MG CAPSULE PO SCH (06:11)
[2018-11-07] MEDS: metFORMIN HCL 500 MG TABLET (FP) PO SCH ×2 (06:11→17:19)
[2018-11-07] MEDS: NICOTINE 14 MG/24 HOURS TOPICAL PATCH TD SCH (10:43)
[2018-11-07] MEDS: PRENATAL VITAMINS W/ FOLIC ACID TABLET (FP) PO SCH (10:43)
[2018-11-07] MEDS: SERTRALINE HCL 50 MG TABLET (FP) PO SCH (10:43)
[2018-11-07] MEDS: COLCHICINE 0.6 MG TABLET (FP) PO SCH (10:43)
[2018-11-07] MEDS: ALLOPURINOL 100 MG TABLET (FP) PO SCH (10:44)
[2018-11-07] MEDS: PANTOPRAZOLE 40 MG TABLET (FP) PO SCH (10:44)
[2018-11-07] MEDS: METOPROLOL TARTRATE 50 MG TABLET (FP) PO SCH ×2 (10:44→22:28)
[2018-11-07] MEDS: NAPROXEN 500 MG TABLET (FP) PO SCH ×2 (10:44→22:27)
[2018-11-07] MEDS: chlordiazePOXIDE HCL 10 MG CAPSULE PO SCH ×3 (10:44→22:27)
[2018-11-07] MEDS: LIDOCAINE 5% TOPICAL PATCH TP SCH (10:45)
[2018-11-07] MEDS: CYCLOBENZAPRINE HCL 10 MG TABLET (FP) PO PRN ×3 (10:49→22:31)
--- NOTE | 2018-11-07 11:01 | PN ---
[facility] Progress Note (SOAP) Subjective: little anxiety little sweats Objective: 11/07/18 11:00 Vital Signs Temperature 96.8 F L 11/07/18 09:37 Pulse Rate 88 11/07/18 09:37 Respiratory Rate 18 11/07/18 09:37 Blood Pressure 149/98 11/07/18 09:37 O2 Sat by Pulse Oximetry (%) aaox3 ambulating no acute distress Assessment: 11/07/18 11:00 mild withdrawal sx Plan: continue detox d/c in am
[2018-11-07] MEDS: ATORVASTATIN CA 80 MG TABLET (FP) PO SCH (22:27)
[2018-11-07] MEDS: THIAMINE HCL 100 MG TABLET (FP) PO SCH (22:27)
[2018-11-07] MEDS: METHYL SALICYLATE/MENTHOL OINT 30 GM TUBE TP SCH (22:27)
[2018-11-07] MEDS: QUEtiapine FUMARATE 400 MG TABLET PO SCH (22:27)
[2018-11-07] MEDS: LIDOCAINE PATCH REMOVAL MC SCH (22:28)
[2018-11-08] MEDS: chlordiazePOXIDE HCL 10 MG CAPSULE PO SCH (05:27)
[2018-11-08] MEDS: metFORMIN HCL 500 MG TABLET (FP) PO SCH (08:04)
--- NOTE | 2018-11-08 09:04 | DS ---
[facility] Detox Discharge Summary Admission Date: 11/04/18 Discharge Date: 11/08/18 - History Present History: Alcohol Dependence - Physical Exam Results Vital Signs: Vital Signs Temperature 97.7 F 11/08/18 06:00 Pulse Rate 73 11/08/18 06:00 Respiratory Rate 20 11/08/18 06:00 Blood Pressure 129/83 11/08/18 06:00 O2 Sat by Pulse Oximetry (%) - Treatment Hospital Course: Detox Protocol Followed, Detoxed Safely, Responded well, Discharged Condition Good, Rehab Referral Accepted - Medication Discharge Medications: Ambulatory Orders Metoprolol Tartrate [Lopressor] 100 mg PO BID 10/04/17 Sertraline HCl [Zoloft -] 100 mg PO DAILY 10/04/17 Atorvastatin Ca [Lipitor] 80 mg PO HS #30 tablet 01/24/18 Allopurinol [Zyloprim -] 100 mg PO DAILY 04/25/18 Colchicine [Colcrys -] 0.6 mg PO DAILY 04/25/18 Metformin HCl [Glucophage] 500 mg PO BID 04/25/18 Pantoprazole Sodium [Protonix -] 40 mg PO DAILY 04/25/18 Cyclobenzaprine HCl [Flexeril 10 mg] 10 mg PO BID PRN 11/04/18 Naproxen [Naprosyn -] 500 mg PO BID 11/04/18 Quetiapine Fumarate [Seroquel -] 400 mg PO HS #30 tab 11/04/18 Quetiapine Fumarate [Seroquel -] 400 mg PO HS #30 tablet 11/04/18 Sertraline HCl 100 mg PO DAILY #30 tablet 11/04/18 Sertraline HCl [Zoloft] 100 mg PO DAILY #30 tablet 11/04/18 - Diagnosis (1) DM2 (diabetes mellitus, type 2) Current Visit: Yes Status: Chronic Qualifiers: 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: unspecified truck terminal manager insulin use status (2) Syncope Current Visit: Yes Status: Acute (3) Alcohol dependence Current Visit: Yes Status: Chronic Qualifiers: Substance use status: uncomplicated Qualified Code(s): F10.20 - Alcohol dependence, uncomplicated (4) Alcohol dependence Current Visit: No Status: Acute (5) Alcohol dependence, episodic drinking behavior Current Visit: No Status: Acute (6) Alcohol-induced sleep disorder Current Visit: No Status: Acute (7) Anemia Current Visit: No Status: Acute (8) Gout Current Visit: No Status: Acute (9) Insomnia Current Visit: No Status: Acute (10) MDD (major depressive disorder), recurrent, severe, with psychosis Current Visit: No Status: Acute (11) Nicotine dependence Current Visit: Yes Status: Chronic Qualifiers: Nicotine product type: cigarettes Substance use status: uncomplicated Qualified Code(s): F17.210 - Nicotine dependence, cigarettes, uncomplicated (12) Substance induced mood disorder Current Visit: No Status: Acute (13) Swelling of left hand Current Visit: No Status: Acute (14) Anxiety and depression Current Visit: No Status: Chronic (15) DM (diabetes mellitus), type 2 Current Visit: Yes Status: Chronic Qualifiers: Diabetes mellitus mcfp insulin use: without mcfp use Diabetes mellitus complication status: without complication Qualified Code(s): E11.9 - Type 2 diabetes mellitus without complications (16) Drug-induced mood disorder Current Visit: No Status: Chronic (17) GERD (gastroesophageal reflux disease) Current Visit: No Status: Chronic Qualifiers: Esophagitis presence: esophagitis presence not specified Qualified Code(s) : K21.9 - Gastro-esophageal reflux disease without esophagitis (18) Gouty arthritis Current Visit: Yes Status: Chronic (19) HTN (hypertension) Current Visit: Yes Status: Chronic Qualifiers: Hypertension type: essential hypertension Qualified Code(s): I10 - Essential (primary) hypertension (20) History of sleep apnea Current Visit: No Status: Chronic (21) Hyperlipidemia Current Visit: Yes Status: Chronic Qualifiers: Hyperlipidemia type: unspecified Qualified Code(s): E78.5 - Hyperlipidemia , unspecified (22) MDD (major depressive disorder) Current Visit: No Status: Chronic Qualifiers: Major depression episode severity: unspecified (23) MDD (major depressive disorder), recurrent severe, without psychosis Current Visit: No Status: Chronic (24) Morbid obesity Current Visit: No Status: Chronic (25) Nicotine dependence Current Visit: Yes Status: Chronic Qualifiers: Nicotine product type: cigarettes Substance use status: uncomplicated Qualified Code(s): F17.210 - Nicotine dependence, cigarettes, uncomplicated (26) Schizophrenia Current Visit: No Status: Chronic (27) Sleep apnea Current Visit: No Status: Chronic (28) Schizoaffective disorder Current Visit: No Status: Suspected (29) Alcohol dependence with uncomplicated withdrawal Current Visit: Yes Status: Chronic (30) Severe episode of recurrent major depressive disorder, without psychotic features Current Visit: No Status: Ruled-out - AMA Did Patient Leave Against Medical Advice: [facility]
[2018-11-08 09:52] VITALS: BP 134/84; PULSE 88; TEMP 97.9
[2018-11-08] MEDS: METOPROLOL TARTRATE 50 MG TABLET (FP) PO SCH (10:00)
[2018-11-08] MEDS: SERTRALINE HCL 50 MG TABLET (FP) PO SCH (10:14)
[2018-11-08] MEDS: COLCHICINE 0.6 MG TABLET (FP) PO SCH (10:14)
[2018-11-08] MEDS: NAPROXEN 500 MG TABLET (FP) PO SCH (10:14)
[2018-11-08] MEDS: PRENATAL VITAMINS W/ FOLIC ACID TABLET (FP) PO SCH (10:14)
[2018-11-08] MEDS: PANTOPRAZOLE 40 MG TABLET (FP) PO SCH (10:14)
[2018-11-08] MEDS: LIDOCAINE 5% TOPICAL PATCH TP SCH (10:15)
[2018-11-08] MEDS: NICOTINE 14 MG/24 HOURS TOPICAL PATCH TD SCH (10:17)
== END 2018-11-08 11:40 | disposition home or self-care (01) | DRG 775 ==
LOC: YASAS 09:04 → Y6N 10:17
PROVIDERS: ADMIT Surgery; ATTEND Surgery
PROC: HZ2ZZZZ Detoxification Services for Substance Abuse Treatment (ICD-10-PCS; principal; 2018-11-04)
DX: F10.230 Alcohol dependence with withdrawal, uncomplicated (principal); F17.210 Nicotine dependence, cigarettes, uncomplicated; F41.8 Other specified anxiety disorders; F32.9 Major depressive disorder, single episode, unspecified; F25.9 Schizoaffective disorder, unspecified; F33.3 Major depressive disorder, recurrent, severe with psychotic symptoms; F19.24 Other psychoactive substance dependence with psychoactive substance-induced mood disorder; F10.282 Alcohol dependence with alcohol-induced sleep disorder; G47.00 Insomnia, unspecified; E11.9 Type 2 diabetes mellitus without complications; R55 Syncope and collapse; M10.9 Gout, unspecified; E78.5 Hyperlipidemia, unspecified; I10 Essential (primary) hypertension; M79.89 Other specified soft tissue disorders; E66.01 Morbid (severe) obesity due to excess calories; Z79.4 Long term (current) use of insulin; Z68.34 Body mass index [BMI] 34.0-34.9, adult
CPT/HCPCS: 36415; 80053; 82962; 85027; 86593

== ENCOUNTER 2019-01-09 09:09 | Inpatient (IN) | payer OTHER ==
[2019-01-09 10:32] VITALS: BMI 35.2
--- NOTE | 2019-01-09 11:15 | HP ---
CIWA Score Nausea/Vomitin Muscle Tremors: 3 Anxiety: 3 Agitation: 2 Paroxysmal Sweats: 1-Minimal Palms Moist Orientation: 0-Oriented Tacttile Disturbances: 1-Very Mild Itch/Numbness Auditory Disturbances: 1-Very Mild Visual Disturbances: 0-None Headache: 2-Mild CIWA-Ar Total Score: 16 - Admission Criteria OASAS Guidelines: Admission for Medically Managed Detox: Requires at least one of the followin. CIWA greater than 12 2. Seizures within the past 24 hours 3. Delirium tremens within the past 24 hours 4. Hallucinations within the past 24 hours 5. Acute intervention needed for co occurring medical disorder 6. Acute intervention needed for co occurring psychiatric disorder 7. Severe withdrawal that cannot be handled at a lower level of care (continued vomiting, continued diarrhea, abnormal vital signs) requiring intravenous medication and/or fluids 8. Admission ROS BHS - HPI Chief Complaint: i need help to stop drinking alcohol Allergies/Adverse Reactions: Allergies Allergy/AdvReac Type Severity Reaction Status Date / Time influenza virus vaccine ts Allergy Severe Swelling Verified 01/09/19 10:17 [From Fluarix] pneumococcal vaccine Allergy Severe Swelling Verified 01/09/19 10:17 [Pneumococcal Vaccine] History of Present Illness: this 53 years old male with alcohol dependence seeking detox ,withdrawal symptom , multiple detox in the past last detox 11/04/18 to 11/08/18 syncope alcohol related history of hypertension,type 2 dm,chronic edema both legs and feet nicotine dependence 1/2 pack,requesting nicotine patch longest sobriety 3 moths plan for rehab after detox depression on med non compliance Exam Limitations: No Limitations - Ebola screening Have you traveled outside of the country in the last 21 days: No Have you had contact with anyone from an Ebola affected area: No Do you have a fever: No - Review of Systems Constitutional: Loss of Appetite, Malaise, Night Sweats, Changes in sleep EENT: reports: Tearing, Nose Congestion Respiratory: reports: No Symptoms reported Cardiac: reports: Palpitations GI: reports: Diarrhea, Nausea, Poor Appetite : reports: No Symptoms Reported Musculoskeletal: reports: Back Pain, Muscle Pain Integumentary: reports: Dryness Neuro: reports: Headache, Tremors Endocrine: reports: No Symptoms Reported Hematology: reports: No Symptoms Reported Psychiatric: reports: No Sypmtoms Reported, Judgement Intact, Mood/Affect Appropiate, Orientated x3, Depressed Other Systems: Reviewed and Negative Patient History - Patient Medical History Hx Anemia: No Hx Asthma: No Hx Chronic Obstructive Pulmonary Disease (COPD): No Hx Cancer: No Hx Cardiac Disorders: No Hx Congestive Heart Failure: No Hx Hypertension: Yes (on med) Hx Hypercholesterolemia: Yes (ON MED) Hx Pacemaker: No Hx Seizures: No Hx Dementia: No Hx Diabetes: Yes (NIDDM) Hx Gastrointestinal Disorders: Yes (ACID REFLUX) Hx Liver Disease: No Hx Genitourinary Disorders: No Hx Sexually Transmitted Disorders: No Hx Renal Disease (ESRD): No Hx Thyroid Disease: No Hx Human Immunodeficiency Virus (HIV): No (NEGATIVE HX last 2017 negative) Hx Hepatitis C: No Hx Depression: Yes Hx Suicide Attempt: No Hx Bipolar Disorder: No Hx Schizophrenia: Yes Other Medical History: no suicidal,no homicidal - Patient Surgical History Past Surgical History: No Hx Neurologic Surgery: No Hx Cataract Extraction: No Hx Cardiac Surgery: No Hx Lung Surgery: No Hx Breast Surgery: No Hx Breast Biopsy: No Hx Abdominal Surgery: No Hx Appendectomy: No Hx Cholecystectomy: No Hx Genitourinary Surgery: No Hx Section: No Hx Orthopedic Surgery: No Anesthesia Reaction: No - PPD History Previous Implant?: Yes Documented Results: Negative w/proof Implanted On Prior R Admission?: Yes Date: 01/25/18 Results: 0 mm PPD to be Administered?: No - Smoking Cessation Smoking history: Current every day smoker Have you smoked in the past 12 months: Yes Aproximately how many cigarettes per day: 10 Cigars Per Day: 0 Hx Chewing Tobacco Use: No Initiated information on smoking cessation: Yes 'Breaking Loose' booklet given: 01/09/19 - Substance & Tx. History Hx Alcohol Use: Yes Hx Substance Use: No Substance Use Type: Alcohol Hx Substance Use Treatment: Yes (last 11/04/18 to 11/08/18 C) - Substances abused Alcohol Substance route: Oral Frequency: Daily Amount used: 16 beers (24oz cans),2pints of vodka Age of first use: 14 Date of last use: 01/08/19 Family Disease History - Family Disease History Family Disease History: Other: Father (alcohol,), Mother (), Brother (alcohol) Admission Physical Exam BHS - Vital Signs Vital Signs: Vital Signs - 24 hr 01/09/19 01/09/19 10:26 10:54 Temperature 100.3 F H 100.3 F H Pulse Rate 113 H 113 H Respiratory 18 18 Rate Blood Pressure 148/94 148/94 - Physical General Appearance: Yes: Moderate Distress, Tremorous, Irritable, Sweating, Anxious HEENTM: Yes: Normal ENT Inspection, GRACIELA, Pharynx Normal Respiratory: Yes: Within Normal Limits, Lungs Clear, Normal Breath Sounds Neck: Yes: Within Normal Limits, Supple, Trachea in good position Breast: Yes: Within Normal Limits Cardiology: Yes: Tachycardia Abdominal: Yes: Within Normal Limits, Normal Bowel Sounds, Non Tender, Flat, Decreased BS Genitourinary: Yes: Within Normal Limits Back: Yes: Muscle Spasm Musculoskeletal: Yes: Back pain, Muscle Pain Extremities: Yes: Tremors, Pedal Edema 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: 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, Motor Strength 5/5 Integumentary: Yes: Dry Lymphatic: Yes: Within Normal Limits - Diagnostic (1) Alcohol dependence with uncomplicated withdrawal Current Visit: Yes Status: Acute (2) Gout Current Visit: No Status: Acute (3) DM2 (diabetes mellitus, type 2) Current Visit: No Status: Chronic Qualifiers: Diabetes mellitus mcc insulin use: unspecified mcc insulin use status (4) Hyperlipidemia Current Visit: No Status: Chronic Qualifiers: Hyperlipidemia type: unspecified Qualified Code(s): E78.5 - Hyperlipidemia , unspecified (5) Nicotine dependence Current Visit: No Status: Chronic Qualifiers: Nicotine product type: cigarettes Substance use status: uncomplicated Qualified Code(s): F17.210 - Nicotine dependence, cigarettes, uncomplicated (6) Schizophrenia Current Visit: No Status: Chronic Comment: As per patient's report. (7) Osteoarthritis Current Visit: Yes Status: Acute Cleared for Admission BHS - Detox or Rehab S Level of Care: Medically Managed Detox Regimen/Protocol: Librium Breathalyzer - Breathalyzer Breathalyzer: 0 Urine Drug Screen - Test Device Lot number: [id number] Expiration date: 08/09/20 - Control Is test valid?: Yes - Results Drug screen NEGATIVE: No Urine drug screen results: BZO-Benzodiazepines Inpatient Rehab Admission - Rehab Decision to Admit Inpatient rehab admission?: No
[2019-01-09] MEDS ORDERED: MENTHOL/PHENOL 1 EACH UD MM PRN (11:27)
[2019-01-09] MEDS ORDERED: MAGNESIUM HYDROX 2400MG/30ML ORAL SUSPENSION 30 ML CUP PO PRN (11:27)
[2019-01-09] MEDS ORDERED: MAGNESIUM CITRATE 300 ML BOTTLE PO PRN (11:27)
[2019-01-09] MEDS ORDERED: MELATONIN 5 MG TABLETS PO PRN (11:27)
[2019-01-09] MEDS ORDERED: chlordiazePOXIDE HCL 25 MG CAPSULE PO PRN (11:27)
[2019-01-09] MEDS ORDERED: BISMUTH SUBSALICYLATE 262 MG/15 ML BTL PO PRN (11:27)
[2019-01-09] MEDS ORDERED: MAG HYDROX/AL HYDROX/SIMETH 30 ML UNIT-DOSE CUP PO PRN (11:27)
[2019-01-09] MEDS ORDERED: ACETAMINOPHEN 325 MG TABLET (FP) PO PRN (11:27)
[2019-01-09] MEDS ORDERED: hydrOXYzine PAMOATE 25 MG CAPSULE (FP) PO PRN (11:27)
[2019-01-09] MEDS ORDERED: IBUPROFEN 400 MG TABLET (FP) PO PRN (11:27)
[2019-01-09] MEDS: ACETAMINOPHEN 325 MG TABLET (FP) PO PRN (12:38)
[2019-01-09 15:15] LABS: HEMATOCRIT 36.9 % (35.4-49); HEMOGLOBIN 12.2 GM/dL (11.7-16.9); MCH 30.4 pg (25.7-33.7); MCHC 33.1 g/dl (32.0-35.9); MEAN CELL VOLUME 91.9 fl (80-96); MEAN PLT VOLUME 10.4 fl (7.5-11.1); PLATELET COUNT 234 K/MM3 (134-434); RBC 4.01 M/mm3 (4.00-5.60); RDW 15.1 % (11.9-15.9); WHITE BLOOD COUNT 5.5 K/mm3 (4.0-10.0)
--- NOTE | 2019-01-09 15:16 | CONSULT ---
[facility] Psychiatric Consult - Data Date of interview: 01/09/19 Admission source: [facility] Identifying data: Patient is a 53 year old single male, without children, unemployed, domiciled and is supported by [facility] benefits. This is one of multiple admissions for patient. Patient admitted to for alcohol dependence Substance Abuse History: moking Cessation. Smoking history: Current every day smoker. Have you smoked in the past 12 months: Yes. Aproximately how many cigarettes per day: 10. Cigars Per Day: 0. Hx Chewing Tobacco Use: No. Initiated information on smoking cessation: Yes. 'Breaking Loose' booklet given : 01/09/19. - Substance & Tx. History. Hx Alcohol Use: Yes. Hx Substance Use : No. Substance Use Type: Alcohol. Hx Substance Use Treatment: Yes (last 11/04 to 11/08/18 [facility]). - Substances abused. Alcohol. Substance route: Oral. Frequency: Daily. Amount used: 16 beers (24oz cans),2pints of vodka. Age of first use: 14. Date of last use: 01/08/19 Medical History: Significant for hypotension, Hypercholesterolemia, GERD, Diabetes Psychiatric History: Patient is an unreliable historian. He denies h/o psychiatric hospitalization. Mr. Selby reports only receiving outpatient psychiatric care which he states started in 1986. Throughout the years he reports being in and out of treatment. He last saw an outpatient psychiatrist two years ago who prescribed him zoloft 100mg + Seroquel 400mg. Mr. Selby reports receiving his medication regiman from his primary care physician. As per previous entries patient reports h/o multiple psychiatric hospitalizations ( [facility]) and reported h/o depression and schizophrenia. At present, patient reports stable mood. No psychosis noted. Physical/Sexual Abuse/Trauma History: denies. Mental Status Exam - Mental Status Exam Alert and Oriented to: Time, Place, Person Cognitive Function: Good Patient Appearance: Well Groomed Mood: Withdrawn Affect: Mood Congruent Patient Behavior: Fatigued Speech Pattern: Clear Voice Loudness: Moderately Soft/Quiet Thought Process: Goal Oriented Thought Disorder: Not Present Hallucinations: Denies Suicidal Ideation: Denies Homicidal Ideation: Denies Psychiatric Findings - Problem List ([place] 1, 2,3) (1) Alcohol dependence with uncomplicated withdrawal Current Visit: Yes Status: Acute (2) Schizoaffective disorder Current Visit: Yes Status: Chronic - Initial Treatment Plan Initial Treatment Plan: Psychoeducaion provided. Detoxification in progress. [facility] contacted at [phone] and able to speak to pharmacist. As per pharmacy staff patient is prescribed Zoloft 100mg + Seroquel 400mg (most recent prescription was picked up on 12/02/18). Willl order Zoloft 100mg + Seroquel 200mg (reduce dosage due to risk of oversedation). Benefits and side effects discussed. Verbal consent given.
[2019-01-09 15:19] LABS: ALBUMIN 3.3 g/dl (3.4-5.0); ALK PHOS 75 U/L (45-117); ANION GAP 5 MMOL/L (8-16); BILIRUBIN,TOTAL 0.5 mg/dL (0.2-1); BLOOD UREA NITROGEN 11 mg/dL (7-18); CALCIUM 9.7 mg/dL (8.5-10.1); CHLORIDE 105 mmol/L (98-107); CO2 28 mmol/L (21-32); CREATININE 0.9 mg/dL (0.55-1.3); GLUCOSE,RANDOM 92 mg/dL (74-106); POTASSIUM 4.8 mmol/L (3.5-5.1); SGOT/AST 35 U/L (15-37); SGPT/ALT 30 U/L (13-61); SODIUM 137 mmol/L (136-145); TOT PROT 7.5 g/dl (6.4-8.2)
[2019-01-09] MEDS: chlordiazePOXIDE HCL 25 MG CAPSULE PO SCH ×2 (17:14→22:21)
[2019-01-09] MEDS: metFORMIN HCL 500 MG TABLET (FP) PO SCH (17:14)
[2019-01-09 17:20] LABS: URINE APPEARANCE CLEAR; URINE BILIRUBIN NEGATIVE (NEGATIVE); URINE COLOR YELLOW; URINE GLUCOSE (UA) NEGATIVE (NEGATIVE); URINE KETONE NEGATIVE (NEGATIVE); URINE LEUK ESTERASE NEGATIVE (NEGATIVE); URINE NITRITE NEGATIVE (NEGATIVE); URINE PROTEIN NEGATIVE (NEGATIVE); URINE UROBILINOGEN 0.2 mg/dL (0.2-1.0)
--- NOTE | 2019-01-09 17:36 | PN ---
S Progress Note Note: Pt with high BP- 181/106, [place] 130. Pt has not been taking BP meds for the last few days- will give Stat dose of lopressor, also received Librium as part of detox protocol
[2019-01-09] MEDS ORDERED: METOPROLOL TARTRATE 50 MG TABLET (FP) PO ONE (18:00)
[2019-01-09] MEDS: NAPROXEN 500 MG TABLET (FP) PO SCH (21:19)
[2019-01-09] MEDS: METOPROLOL TARTRATE 50 MG TABLET (FP) PO SCH (21:20)
[2019-01-09] MEDS ORDERED: QUEtiapine FUMARATE 200 MG TABLET PO SCH (22:00)
[2019-01-09] MEDS ORDERED: THIAMINE HCL 100 MG TABLET (FP) PO SCH (22:00)
[2019-01-09] MEDS ORDERED: ATORVASTATIN CA 80 MG TABLET (FP) PO SCH (22:00)
[2019-01-09] MEDS: METHOCARBAMOL 500 MG TABLET PO PRN (22:22)
[2019-01-10] MEDS: chlordiazePOXIDE HCL 25 MG CAPSULE PO SCH ×3 (06:40→11:21)
[2019-01-10] MEDS: metFORMIN HCL 500 MG TABLET (FP) PO SCH ×2 (06:41→17:09)
[2019-01-10] MEDS: ACETAMINOPHEN 325 MG TABLET (FP) PO PRN ×2 (07:21→14:19)
[2019-01-10] MEDS ORDERED: ALLOPURINOL 100 MG TABLET (FP) PO SCH (10:00)
[2019-01-10] MEDS ORDERED: COLCHICINE 0.6 MG TABLET (FP) PO SCH (10:00)
[2019-01-10] MEDS ORDERED: PANTOPRAZOLE 40 MG TABLET (FP) PO SCH (10:00)
[2019-01-10] MEDS ORDERED: SERTRALINE HCL 50 MG TABLET (FP) PO SCH (10:00)
[2019-01-10] MEDS ORDERED: PRENATAL VITAMINS W/ FOLIC ACID TABLET (FP) PO SCH (10:00)
[2019-01-10] MEDS: METOPROLOL TARTRATE 50 MG TABLET (FP) PO SCH (11:17)
[2019-01-10] MEDS: NAPROXEN 500 MG TABLET (FP) PO SCH (11:17)
[2019-01-10] MEDS: METHOCARBAMOL 500 MG TABLET PO PRN (14:19)
[2019-01-10] MEDS ORDERED: chlordiazePOXIDE HCL 25 MG CAPSULE PO SCH (17:00)
[2019-01-10 17:52] VITALS: BP 114/65; PULSE 92; TEMP 97.9
--- NOTE | 2019-01-10 20:09 | DS ---
[facility] Detox Discharge Summary Admission Date: 01/09/19 Discharge Date: 01/10/19 - History Present History: Alcohol Dependence Additional Comments: Admitted w/ c/o alcohol withdrawal and requesting detox. Pertinent Past History: Hx:Hypertension, Type 2 DM, Chronic BLE Edema Nicotine dependence MHHx: Depression - Physical Exam Results Vital Signs: Vital Signs Temperature 97.9 F 01/10/19 17:51 Pulse Rate 92 H 01/10/19 17:51 Respiratory Rate 19 01/10/19 17:51 Blood Pressure 114/65 01/10/19 17:51 O2 Sat by Pulse Oximetry (%) Pertinent Admission Physical Exam Findings: Admitted w/ alcohol withdrawal symptoms to detox. Laboratory Last Values WBC 5.5 K/mm3 (4.0-10.0) 01/09/19 11:35 RBC 4.01 M/mm3 (4.00-5.60) 01/09/19 11:35 Hgb 12.2 GM/dL (11.7-16.9) 01/09/19 11:35 Hct 36.9 % (35.4-49) 01/09/19 11:35 MCV 91.9 fl (80-96) 01/09/19 11:35 MCH 30.4 pg (25.7-33.7) 01/09/19 11:35 MCHC 33.1 g/dl (32.0-35.9) 01/09/19 11:35 RDW 15.1 % (11.9-15.9) 01/09/19 11:35 Plt Count 234 K/MM3 (134-434) D 01/09/19 11:35 MPV 10.4 fl (7.5-11.1) 01/09/19 11:35 Sodium 137 mmol/L (136-145) 01/09/19 11:35 Potassium 4.8 mmol/L (3.5-5.1) 01/09/19 11:35 Chloride 105 mmol/L (98-107) 01/09/19 11:35 Carbon Dioxide 28 mmol/L (21-32) 01/09/19 11:35 Anion Gap 5 MMOL/L (8-16) L 01/09/19 11:35 BUN 11 mg/dL (7-18) 01/09/19 11:35 Creatinine 0.9 mg/dL (0.55-1.3) 01/09/19 11:35 Creat Clearance w eGFR 87.61 (>60) 01/09/19 11:35 POC Glucometer 120 UNITS (80-120) 01/10/19 16:37 Random Glucose 92 mg/dL (74-106) 01/09/19 11:35 Calcium 9.7 mg/dL (8.5-10.1) 01/09/19 11:35 Total Bilirubin 0.5 mg/dL (0.2-1) 01/09/19 11:35 AST 35 U/L (15-37) 01/09/19 11:35 ALT 30 U/L (13-61) 01/09/19 11:35 Alkaline Phosphatase 75 U/L (45-117) 01/09/19 11:35 Total Protein 7.5 g/dl (6.4-8.2) 01/09/19 11:35 Albumin 3.3 g/dl (3.4-5.0) L 01/09/19 11:35 Urine Color Yellow 01/09/19 16:00 Urine Appearance Clear 01/09/19 16:00 Urine pH 5.0 (5.0-8.0) D 01/09/19 16:00 Ur Specific [place] 1.018 (1.010-1.035) 01/09/19 16:00 Urine Protein Negative (NEGATIVE) 01/09/19 16:00 Urine Glucose (UA) Negative (NEGATIVE) 01/09/19 16:00 Urine Ketones Negative (NEGATIVE) 01/09/19 16:00 Urine Blood Negative (NEGATIVE) 01/09/19 16:00 Urine Nitrite Negative (NEGATIVE) 01/09/19 16:00 Urine Bilirubin Negative (NEGATIVE) 01/09/19 16:00 Urine Urobilinogen 0.2 mg/dL (0.2-1.0) 01/09/19 16:00 Ur Leukocyte Esterase Negative (NEGATIVE) 01/09/19 16:00 Urine WBC (Auto) No Result Required. 01/09/19 16:00 Urine RBC (Auto) No Result Required. 01/09/19 16:00 Urine Casts (Auto) No Result Required. 01/09/19 16:00 U Pathogenic Cast Auto No Result Required. 01/09/19 16:00 U Epithel Cells (Auto) No Result Required. 01/09/19 16:00 U Sm Round Cell (Auto) No Result Required. 01/09/19 16:00 Urine Crystals (Auto) No Result Required. 01/09/19 16:00 Urine Bacteria (Auto) No Result Required. 01/09/19 16:00 RPR Titer Nonreactive (NONREACTIVE) 01/09/19 11:35 Labs reviewed. - Treatment Hospital Course: Detox Protocol Followed (Tolerated detox but did not complete protocol.), Discharged Condition Good (Alert and oriented. States "I feel better ") - Medication Discharge Medications: Ambulatory Orders Metoprolol Tartrate [Lopressor] 100 mg PO BID 10/04/17 Atorvastatin Ca [Lipitor] 80 mg PO HS #30 tablet 01/24/18 Allopurinol [Zyloprim -] 100 mg PO DAILY 04/25/18 Colchicine [Colcrys -] 0.6 mg PO DAILY 04/25/18 Metformin HCl [Glucophage] 500 mg PO BID 04/25/18 Pantoprazole Sodium [Protonix -] 40 mg PO DAILY 04/25/18 Cyclobenzaprine HCl [Flexeril 10 mg] 10 mg PO BID PRN 11/04/18 Naproxen [Naprosyn -] 500 mg PO BID 11/04/18 Quetiapine Fumarate [Seroquel -] 400 mg PO HS #30 tab 11/04/18 Sertraline HCl [Zoloft] 100 mg PO DAILY #30 tablet 11/04/18 - Diagnosis (1) Alcohol dependence with uncomplicated withdrawal Status: Acute (2) DM (diabetes mellitus), type 2 Status: Chronic Qualifiers: Diabetes mellitus longterm insulin use: without adjunct faculty for medical terminology use Diabetes mellitus complication status: without complication Qualified Code(s): E11.9 - Type 2 diabetes mellitus without complications (3) HTN (hypertension) Status: Chronic Qualifiers: Hypertension type: essential hypertension Qualified Code(s): I10 - Essential (primary) hypertension (4) Nicotine dependence Status: Chronic Qualifiers: Nicotine product type: cigarettes Substance use status: uncomplicated Qualified Code(s): F17.210 - Nicotine dependence, cigarettes, uncomplicated (5) Gouty arthritis Status: Chronic - AMA Did Patient Leave Against Medical Advice: Yes (Refused to stay despite encouragement)
[2019-01-11] MEDS ORDERED: chlordiazePOXIDE HCL 10 MG CAPSULE PO SCH (17:00)
[2019-01-11] MEDS ORDERED: chlordiazePOXIDE HCL 10 MG CAPSULE PO PRN (17:00)
[2019-01-12] MEDS ORDERED: chlordiazePOXIDE HCL 10 MG CAPSULE PO SCH (17:00)
== END 2019-01-10 20:40 | disposition home or self-care (01) | DRG 775 ==
LOC: YASAS 09:09 → Y3N 11:45
PROVIDERS: ADMIT Surgery; ATTEND Surgery
PROC: HZ2ZZZZ Detoxification Services for Substance Abuse Treatment (ICD-10-PCS; principal; 2019-01-09)
DX: F10.230 Alcohol dependence with withdrawal, uncomplicated (principal); F17.210 Nicotine dependence, cigarettes, uncomplicated; F25.9 Schizoaffective disorder, unspecified; F32.9 Major depressive disorder, single episode, unspecified; I10 Essential (primary) hypertension; K21.9 Gastro-esophageal reflux disease without esophagitis; E11.9 Type 2 diabetes mellitus without complications; Z79.84 Long term (current) use of oral hypoglycemic drugs; R60.0 Localized edema; E78.00 Pure hypercholesterolemia, unspecified; M10.9 Gout, unspecified; M19.90 Unspecified osteoarthritis, unspecified site; Z88.7 Allergy status to serum and vaccine
CPT/HCPCS: 36415; 80053; 81003; 82962; 85027; 86593

== ENCOUNTER 2019-03-04 12:24 | Inpatient (IN) | payer OTHER ==
[2019-03-04 14:54] VITALS: BMI 35.2
--- NOTE | 2019-03-04 16:16 | HP ---
CIWA Score Nausea/Vomitin-No Nausea/No Vomiting Muscle Tremors: 2 Anxiety: 0-No Anxiety, at Ease Agitation: 1-Slight > Activity Paroxysmal Sweats: No Perspiration Orientation: 0-Oriented Tacttile Disturbances: 0-None Auditory Disturbances: 0-None Visual Disturbances: 0-None Headache: 0-None Present CIWA-Ar Total Score: 3 - Admission Criteria OASAS Guidelines: Admission for Medically Managed Detox: Requires at least one of the followin. CIWA greater than 12 2. Seizures within the past 24 hours 3. Delirium tremens within the past 24 hours 4. Hallucinations within the past 24 hours 5. Acute intervention needed for co occurring medical disorder 6. Acute intervention needed for co occurring psychiatric disorder 7. Severe withdrawal that cannot be handled at a lower level of care (continued vomiting, continued diarrhea, abnormal vital signs) requiring intravenous medication and/or fluids 8. Admission ROS S - HPI Allergies/Adverse Reactions: Allergies Allergy/AdvReac Type Severity Reaction Status Date / Time influenza virus vaccine ts Allergy Severe Swelling Verified 03/04/19 14:42 [From Fluarix] pneumococcal vaccine Allergy Severe Swelling Verified 03/04/19 14:42 [Pneumococcal Vaccine] History of Present Illness: pt here requesting detox from etoh use , reports 16-20 cans of beer and 2 pints of vodka daily , reports tremors if not drinking , latest use yesterday prior to hospital visit 2/2 intoxication PMHX : hypertension,type 2 dm , gout , insomnia , KRISTIAN , HLD , depression , abdominal hernia , PUD Exam Limitations: No Limitations - Ebola screening Have you traveled outside of the country in the last 21 days: No Have you had contact with anyone from an Ebola affected area: No - Review of Systems Constitutional: No Symptoms Reported EENT: reports: No Symptoms Reported Respiratory: reports: No Symptoms reported Cardiac: reports: No Symptoms Reported GI: reports: Diarrhea : reports: No Symptoms Reported Musculoskeletal: reports: Joint Pain (norah knees chronic pain) Integumentary: reports: Dryness Neuro: reports: No Symptoms reported Endocrine: reports: See HPI Psychiatric: reports: Orientated x3 Patient History - Patient Medical History Hx Anemia: No Hx Asthma: No Hx Chronic Obstructive Pulmonary Disease (COPD): No Hx Cancer: No Hx Cardiac Disorders: No Hx Congestive Heart Failure: No Hx Hypertension: Yes (on med) Hx Hypercholesterolemia: Yes (ON MED) Hx Pacemaker: No Hx Seizures: No Hx Dementia: No Hx Diabetes: Yes (NIDDM) Hx Gastrointestinal Disorders: Yes (ACID REFLUX) Hx Liver Disease: No Hx Genitourinary Disorders: No Hx Sexually Transmitted Disorders: No Hx Renal Disease (ESRD): No Hx Thyroid Disease: No Hx Human Immunodeficiency Virus (HIV): No (NEGATIVE HX last 2017 negative) Hx Hepatitis C: No Hx Depression: Yes Hx Suicide Attempt: No Hx Bipolar Disorder: No Hx Schizophrenia: Yes - Patient Surgical History Past Surgical History: No Hx Neurologic Surgery: No Hx Cataract Extraction: No Hx Cardiac Surgery: No Hx Lung Surgery: No Hx Breast Surgery: No Hx Breast Biopsy: No Hx Abdominal Surgery: No Hx Appendectomy: No Hx Cholecystectomy: No Hx Genitourinary Surgery: No Hx Section: No Hx Orthopedic Surgery: No Anesthesia Reaction: No - PPD History Date: 01/25/18 Results: 0 mm - Smoking Cessation Smoking history: Current every day smoker Have you smoked in the past 12 months: Yes Aproximately how many cigarettes per day: 10 Cigars Per Day: 0 Hx Chewing Tobacco Use: No Initiated information on smoking cessation: No - Substances abused Alcohol Substance route: Oral Frequency: Daily Amount used: 16 beers (24oz cans),2pints of vodka Age of first use: 14 Date of last use: 03/03/19 Family Disease History - Family Disease History Family Disease History: Other: Father (alcohol,), Mother (), Brother (alcohol) Admission Physical Exam BHS - Vital Signs Vital Signs: Vital Signs - 24 hr 03/04/19 14:35 Temperature 97.2 F L Pulse Rate 96 H Respiratory 17 Rate Blood Pressure 161/100 - Physical General Appearance: Yes: Within Normal Limits HEENTM: Yes: EOMI, Normocephalic, Normal Voice Respiratory: Yes: Chest Non-Tender, Lungs Clear, Normal Breath Sounds Neck: Yes: No masses,lesions,Nodules, Trachea in good position Cardiology: Yes: Regular Rhythm, Regular Rate, S1, S2, Tachycardia Abdominal: Yes: Flat, Soft, Protuberent Back: Yes: Normal Inspection Musculoskeletal: Yes: Joint Stiffness (norah knees chronic pain) Extremities: Yes: Normal Range of Motion 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: Fully Oriented, Alert, Motor Strength 5/5 Integumentary: Yes: Warm - Diagnostic (1) Alcohol dependence Current Visit: Yes Status: Acute Qualifiers: Substance use status: uncomplicated Qualified Code(s): F10.20 - Alcohol dependence, uncomplicated Breathalyzer - Breathalyzer Breathalyzer: 0 Urine Drug Screen - Test Device Lot number: [id number] Expiration date: 11/07/20 - Control Is test valid?: Yes - Results Drug screen NEGATIVE: No Urine drug screen results: BZO-Benzodiazepines Inpatient Rehab Admission - Rehab Decision to Admit Inpatient rehab admission?: No
[2019-03-04] MEDS ORDERED: MAGNESIUM HYDROX 2400MG/30ML ORAL SUSPENSION 30 ML CUP PO PRN (17:01)
[2019-03-04] MEDS ORDERED: MENTHOL/PHENOL 1 EACH UD MM PRN (17:01)
[2019-03-04] MEDS ORDERED: MAGNESIUM CITRATE 300 ML BOTTLE PO PRN (17:01)
[2019-03-04] MEDS ORDERED: hydrOXYzine PAMOATE 25 MG CAPSULE (FP) PO PRN (17:01)
[2019-03-04] MEDS ORDERED: BISMUTH SUBSALICYLATE 524 MG/30 ML UD PO PRN (17:01)
[2019-03-04] MEDS ORDERED: MELATONIN 5 MG TABLETS PO PRN (17:01)
[2019-03-04] MEDS ORDERED: MAG HYDROX/AL HYDROX/SIMETH 30 ML UNIT-DOSE CUP PO PRN (17:01)
[2019-03-04] MEDS ORDERED: ACETAMINOPHEN 325 MG TABLET (FP) PO PRN ×2 (17:01)
[2019-03-04] MEDS: metFORMIN HCL 500 MG TABLET (FP) PO SCH ×3 (18:21→18:31)
[2019-03-04] MEDS: INSULIN SLIDING SCALE (NOVOLOG) 1 VIAL SQ SCH (18:24)
[2019-03-04] MEDS ORDERED: chlordiazePOXIDE HCL 25 MG CAPSULE PO SCH (21:00)
--- NOTE | 2019-03-04 21:58 | PN ---
S CIWA - CIWA Score Nausea/Vomitin-Mild Nausea/No Vomiting Muscle Tremors: 4-Moderate,w/Arms Extend Anxiety: 1-Mildly Anxious Agitation: 3 Paroxysmal Sweats: 3 Orientation: 0-Oriented Tacttile Disturbances: 0-None Auditory Disturbances: 0-None Visual Disturbances: 0-None Headache: 0-None Present CIWA-Ar Total Score: 12 BHS Progress Note (SOAP) Subjective: Patient states feeling the shakes and feels like vomiting. Patient admits that current alcohol intake has decreased to about 12 beers daily and only drinking a little vodka about 1-2x/wk. Objective: Alert. Unsure of date, otherwise oriented. Assessment completed - see COWS. Vital Signs 03/04/19 03/04/19 03/04/19 14:35 18:02 20:52 Temperature 97.2 F L 98.2 F 98.2 F Pulse Rate 96 H 97 H 114 H Respiratory 17 18 18 Rate Blood Pressure 161/100 131/98 154/82 Assessment: Alcohol withdrawal. Plan: Place on Librium taper.
[2019-03-04] MEDS ORDERED: chlordiazePOXIDE HCL 10 MG CAPSULE PO PRN ×2 (22:00→22:05)
[2019-03-04] MEDS ORDERED: chlordiazePOXIDE HCL 25 MG CAPSULE PO ONE (22:30)
[2019-03-04] MEDS: METOPROLOL TARTRATE 50 MG TABLET (FP) PO SCH (22:38)
[2019-03-04] MEDS: THIAMINE HCL 100 MG TABLET (FP) PO SCH (22:38)
[2019-03-04] MEDS: ATORVASTATIN CA 80 MG TABLET (FP) PO SCH (22:38)
[2019-03-05] MEDS: chlordiazePOXIDE HCL 25 MG CAPSULE PO SCH ×3 (05:34→22:58)
[2019-03-05] MEDS: INSULIN SLIDING SCALE (NOVOLOG) 1 VIAL SQ SCH ×2 (07:14→17:25)
[2019-03-05] MEDS: metFORMIN HCL 500 MG TABLET (FP) PO SCH ×2 (07:14→17:24)
[2019-03-05] MEDS: METOPROLOL TARTRATE 50 MG TABLET (FP) PO SCH ×2 (10:37→22:57)
[2019-03-05] MEDS: COLCHICINE 0.6 MG CAP PO SCH (10:37)
[2019-03-05] MEDS: ALLOPURINOL 100 MG TABLET (FP) PO SCH (10:37)
[2019-03-05] MEDS: PRENATAL VITAMINS W/ FOLIC ACID TABLET (FP) PO SCH (10:37)
--- NOTE | 2019-03-05 10:48 | CONSULT ---
[facility] Psychiatric Consult - Data Date of interview: 03/05/19 Admission source: Self-referred Identifying data: Mr Selby is a 53 years old single Black male, unemployed receiving SSI, domiciled seeking detox treatment for alcohol Substance Abuse History: Reports history of alcohol use. Refer to addiction counselor's summary for further information Medical History: Significant for gout, osteoarthritis, GERD, dyslipidemia, diabetes mellitus, hypertension, obesity and a history of sleep apnea and abdominal hernia repair in 2003. Smokes 10 cigarettes daily Psychiatric History: Patient is a poor historian who is in denial of his mental illness. Reportedly he is onset of mental illness is at age 17 when he was diagnosed with Schizophrenia. He has had multiple psychiatric hospitalizations at various facilities including [facility], [facility] and [facility]. Reports that since he moved from a [facility] residence in [place] 3 years ago, he has not seen an outpatient psychiatrist. However reports being prescribed his psychotropic medications by his primary care physician. Reports being currently prescribed Zoloft 100 mg/day and Seroquel 400 mg/hs. Reports because that due to his addiction, he last took medications 2 weeks ago. Patient denies history of suicide attempts. At present, denies experiencing psychotic symptoms/S/H ideations. However, reports feeling anxious and sleeping poorly Physical/Sexual Abuse/Trauma History: Denies history of emotional, physical or sexual abuse as well as DV relationship Additional Comment: Reports history of 5 previous misdemeanor arrests on charges of drinking in public Mental Status Exam - Mental Status Exam Alert and Oriented to: Time, Place, Person Cognitive Function: Fair Patient Appearance: Well Groomed Mood: Anxious Affect: Appropriate Patient Behavior: Cooperative Speech Pattern: Clear Voice Loudness: Normal Thought Process: Intact, Goal Oriented Hallucinations: Denies Suicidal Ideation: Denies Homicidal Ideation: Denies Insight/Judgement: Poor Sleep: Poorly Appetite: Good Muscle strength/Tone: Normal Gait/Station: Normal Psychiatric Findings - Problem List ([place] 1, 2,3) (1) Schizoaffective disorder Current Visit: No Status: Chronic (2) Alcohol-induced anxiety disorder Current Visit: Yes Status: Acute (3) Alcohol-induced sleep disorder Current Visit: No Status: Acute (4) Alcohol dependence with uncomplicated withdrawal Current Visit: No Status: Acute (5) Nicotine dependence Current Visit: No Status: Chronic Qualifiers: Nicotine product type: cigarettes Substance use status: uncomplicated Qualified Code(s): F17.210 - Nicotine dependence, cigarettes, uncomplicated (6) Osteoarthritis Current Visit: No Status: Chronic (7) DM2 (diabetes mellitus, type 2) Current Visit: No Status: Chronic Qualifiers: Diabetes mellitus penitentiary insulin use: unspecified penitentiary insulin use status (8) GERD (gastroesophageal reflux disease) Current Visit: No Status: Chronic Qualifiers: Esophagitis presence: esophagitis presence not specified Qualified Code(s) : K21.9 - Gastro-esophageal reflux disease without esophagitis (9) Gouty arthritis Current Visit: No Status: Chronic (10) History of sleep apnea Current Visit: No Status: Chronic (11) Hyperlipidemia Current Visit: No Status: Chronic Qualifiers: Hyperlipidemia type: unspecified Qualified Code(s): E78.5 - Hyperlipidemia , unspecified (12) Anemia Current Visit: No Status: Chronic (13) Gout Current Visit: No Status: Acute (14) DM (diabetes mellitus), type 2 Current Visit: No Status: Chronic Qualifiers: Diabetes mellitus penitentiary insulin use: without superintendent container terminal use Diabetes mellitus complication status: without complication Qualified Code(s): E11.9 - Type 2 diabetes mellitus without complications (15) HTN (hypertension) Current Visit: No Status: Chronic Qualifiers: Hypertension type: essential hypertension Qualified Code(s): I10 - Essential (primary) hypertension (16) Nicotine dependence Current Visit: No Status: Chronic Qualifiers: Nicotine product type: cigarettes Substance use status: uncomplicated Qualified Code(s): F17.210 - Nicotine dependence, cigarettes, uncomplicated (17) Sleep apnea Current Visit: No Status: Chronic - Initial Treatment Plan Initial Treatment Plan: 1) Resume Zoloft 100 mg po daily and Seroquel 400 mg po HS. 2) Continue inpatient detoxification
--- NOTE | 2019-03-05 11:44 | PN ---
S CIWA - CIWA Score Nausea/Vomitin-No Nausea/No Vomiting Muscle Tremors: 3 Anxiety: 3 Agitation: 3 Paroxysmal Sweats: 2 Orientation: 0-Oriented Tacttile Disturbances: 0-None Auditory Disturbances: 0-None Visual Disturbances: 0-None Headache: 0-None Present CIWA-Ar Total Score: 11 BHS Progress Note (SOAP) Subjective: body aches nausea sweats shakes Objective: 03/05/19 11:44 Vital Signs Temperature 97.5 F L 03/05/19 10:00 Pulse Rate 82 03/05/19 10:00 Respiratory Rate 18 03/05/19 10:00 Blood Pressure 144/78 03/05/19 10:00 O2 Sat by Pulse Oximetry (%) Laboratory Tests 03/04/19 03/05/19 18:17 05:37 POC Glucometer 104 108 pt was detoxed here about a month ago; all his labs were WNL repeated labs for this visit is not necessary. Assessment: 03/05/19 11:47 withdrawal sx Plan: continue detox increase fluids zofran prn
[2019-03-05] MEDS: SERTRALINE HCL 50 MG TABLET (FP) PO SCH (12:26)
[2019-03-05] MEDS ORDERED: cloNIDine HCL 0.1 MG TABLET PO ONE (19:00)
[2019-03-05] MEDS ORDERED: chlordiazePOXIDE 5 MG CAPSULE PO SCH (21:00)
[2019-03-05] MEDS: THIAMINE HCL 100 MG TABLET (FP) PO SCH (22:57)
[2019-03-05] MEDS: ATORVASTATIN CA 80 MG TABLET (FP) PO SCH (22:57)
[2019-03-05] MEDS: QUEtiapine FUMARATE 400 MG TABLET PO SCH (22:57)
[2019-03-06] MEDS ORDERED: chlordiazePOXIDE HCL 10 MG CAPSULE PO PRN ×2 (05:00→21:00)
[2019-03-06] MEDS ORDERED: chlordiazePOXIDE 5 MG CAPSULE PO SCH ×2 (05:00→22:00)
[2019-03-06] MEDS: INSULIN SLIDING SCALE (NOVOLOG) 1 VIAL SQ SCH ×2 (07:15→17:59)
[2019-03-06] MEDS: metFORMIN HCL 500 MG TABLET (FP) PO SCH ×2 (07:15→17:30)
[2019-03-06] MEDS: ALLOPURINOL 100 MG TABLET (FP) PO SCH (10:59)
[2019-03-06] MEDS: METOPROLOL TARTRATE 50 MG TABLET (FP) PO SCH ×2 (10:59→22:38)
[2019-03-06] MEDS: SERTRALINE HCL 50 MG TABLET (FP) PO SCH (10:59)
[2019-03-06] MEDS: COLCHICINE 0.6 MG CAP PO SCH (10:59)
[2019-03-06] MEDS: PRENATAL VITAMINS W/ FOLIC ACID TABLET (FP) PO SCH (10:59)
--- NOTE | 2019-03-06 11:34 | PN ---
S CIWA - CIWA Score Nausea/Vomitin-No Nausea/No Vomiting Muscle Tremors: 3 Anxiety: 2 Agitation: 2 Paroxysmal Sweats: 2 Orientation: 0-Oriented Tacttile Disturbances: 0-None Auditory Disturbances: 0-None Visual Disturbances: 0-None Headache: 0-None Present CIWA-Ar Total Score: 9 BHS Progress Note (SOAP) Subjective: feeling much better little sweats Objective: 03/06/19 11:56 Vital Signs Temperature 98.3 F 03/06/19 09:25 Pulse Rate 71 03/06/19 09:25 Respiratory Rate 20 03/06/19 09:25 Blood Pressure 115/75 03/06/19 09:25 O2 Sat by Pulse Oximetry (%) Laboratory Tests 03/04/19 03/05/19 03/05/19 18:17 05:37 16:38 POC Glucometer 104 108 89 03/06/19 05:53 POC Glucometer 125 aaox3 ambulating no acute distress Assessment: 03/06/19 11:56 mild withdrawal sx Plan: continue detox increase fluids
[2019-03-06] MEDS ORDERED: chlordiazePOXIDE HCL 10 MG CAPSULE PO SCH (21:00)
[2019-03-06] MEDS: QUEtiapine FUMARATE 400 MG TABLET PO SCH (22:39)
[2019-03-06] MEDS: THIAMINE HCL 100 MG TABLET (FP) PO SCH (22:39)
[2019-03-06] MEDS: ATORVASTATIN CA 80 MG TABLET (FP) PO SCH (22:39)
[2019-03-07] MEDS ORDERED: chlordiazePOXIDE HCL 10 MG CAPSULE PO SCH (05:00)
[2019-03-07] MEDS: metFORMIN HCL 500 MG TABLET (FP) PO SCH (06:15)
[2019-03-07] MEDS: INSULIN SLIDING SCALE (NOVOLOG) 1 VIAL SQ SCH (06:43)
--- NOTE | 2019-03-07 09:17 | DS ---
[facility] Detox Discharge Summary Admission Date: 03/04/19 Discharge Date: 03/07/19 - History Present History: Alcohol Dependence - Physical Exam Results Vital Signs: Vital Signs Temperature 97.9 F 03/07/19 07:08 Pulse Rate 73 03/07/19 07:08 Respiratory Rate 18 03/07/19 07:08 Blood Pressure 125/76 03/07/19 07:08 O2 Sat by Pulse Oximetry (%) - Treatment Hospital Course: Detox Protocol Followed, Detoxed Safely, Responded well, Discharged Condition Good, Rehab Referral Accepted - Medication Discharge Medications: Ambulatory Orders Metoprolol Tartrate [Lopressor] 100 mg PO BID 10/04/17 Atorvastatin Ca [Lipitor] 80 mg PO HS #30 tablet 01/24/18 Allopurinol [Zyloprim -] 100 mg PO DAILY 04/25/18 Colchicine [Colcrys] 0.6 mg PO DAILY 04/25/18 Metformin HCl [Glucophage] 500 mg PO BID 04/25/18 Pantoprazole Sodium [Protonix -] 40 mg PO DAILY 04/25/18 Cyclobenzaprine HCl [Flexeril 10 mg] 10 mg PO TID PRN 11/04/18 Naproxen [Naprosyn -] 500 mg PO DAILY 11/04/18 Quetiapine Fumarate [Seroquel -] 400 mg PO HS #30 tab 11/04/18 Sertraline HCl [Zoloft] 100 mg PO DAILY #30 tablet 11/04/18 Folic Acid - 1 mg PO DAILY 03/04/19 Thiamine HCl [Vitamin B-1] 100 mg PO DAILY 03/04/19 - Diagnosis (1) Alcohol-induced anxiety disorder Current Visit: Yes Status: Acute (2) Alcohol dependence with uncomplicated withdrawal Current Visit: Yes Status: Chronic (3) Gout Current Visit: Yes Status: Chronic Qualifiers: Gout site: unspecified site Chronicity: unspecified (4) Insomnia Current Visit: No Status: Acute (5) MDD (major depressive disorder), recurrent, severe, with psychosis Current Visit: No Status: Acute (6) Substance induced mood disorder Current Visit: No Status: Acute (7) Syncope Current Visit: No Status: Acute (8) Anxiety and depression Current Visit: No Status: Chronic (9) DM (diabetes mellitus), type 2 Current Visit: Yes Status: Chronic Qualifiers: Diabetes mellitus intermediate project manager insulin use: without intermediate project manager use Diabetes mellitus complication status: with other specified complication Qualified Code (s): E11.69 - Type 2 diabetes mellitus with other specified complication (10) Drug-induced mood disorder Current Visit: No Status: Chronic (11) GERD (gastroesophageal reflux disease) Current Visit: Yes Status: Chronic Qualifiers: Esophagitis presence: without esophagitis Qualified Code(s): K21.9 - Gastro -esophageal reflux disease without esophagitis (12) Gouty arthritis Current Visit: No Status: Chronic (13) HTN (hypertension) Current Visit: Yes Status: Chronic Qualifiers: Hypertension type: essential hypertension Qualified Code(s): I10 - Essential (primary) hypertension (14) History of sleep apnea Current Visit: No Status: Chronic (15) Hyperlipidemia Current Visit: Yes Status: Chronic Qualifiers: Hyperlipidemia type: unspecified Qualified Code(s): E78.5 - Hyperlipidemia , unspecified (16) MDD (major depressive disorder) Current Visit: No Status: Chronic Qualifiers: Major depression episode severity: unspecified (17) MDD (major depressive disorder), recurrent severe, without psychosis Current Visit: No Status: Chronic (18) Morbid obesity Current Visit: No Status: Chronic (19) Nicotine dependence Current Visit: Yes Status: Chronic Qualifiers: Nicotine product type: cigarettes Substance use status: uncomplicated Qualified Code(s): F17.210 - Nicotine dependence, cigarettes, uncomplicated (20) Schizophrenia Current Visit: Yes Status: Chronic Qualifiers: Schizophrenia type: unspecified Qualified Code(s): F20.9 - Schizophrenia, unspecified (21) Sleep apnea Current Visit: No Status: Chronic (22) Severe episode of recurrent major depressive disorder, without psychotic features Current Visit: No Status: Ruled-out - AMA Did Patient Leave Against Medical Advice: No (going to [facility] rehab)
[2019-03-07 09:26] VITALS: TEMP 97.7
[2019-03-07] MEDS: ALLOPURINOL 100 MG TABLET (FP) PO SCH (10:14)
[2019-03-07] MEDS: COLCHICINE 0.6 MG CAP PO SCH (10:14)
[2019-03-07] MEDS: METOPROLOL TARTRATE 50 MG TABLET (FP) PO SCH (10:14)
[2019-03-07] MEDS: PRENATAL VITAMINS W/ FOLIC ACID TABLET (FP) PO SCH (10:14)
[2019-03-07] MEDS: SERTRALINE HCL 50 MG TABLET (FP) PO SCH (10:14)
[2019-03-07 13:12] VITALS: BP 128/74; PULSE 71
== END 2019-03-07 14:51 | disposition home or self-care (01) | DRG 775 ==
LOC: YASAS 12:24 → Y6N 17:19
PROVIDERS: ADMIT Surgery; ATTEND Surgery
PROC: HZ2ZZZZ Detoxification Services for Substance Abuse Treatment (ICD-10-PCS; principal; 2019-03-04)
DX: F10.230 Alcohol dependence with withdrawal, uncomplicated (principal); F10.280 Alcohol dependence with alcohol-induced anxiety disorder; F33.3 Major depressive disorder, recurrent, severe with psychotic symptoms; F19.24 Other psychoactive substance dependence with psychoactive substance-induced mood disorder; F41.9 Anxiety disorder, unspecified; E11.9 Type 2 diabetes mellitus without complications; E78.5 Hyperlipidemia, unspecified; M10.9 Gout, unspecified; G47.00 Insomnia, unspecified; G47.30 Sleep apnea, unspecified; K21.9 Gastro-esophageal reflux disease without esophagitis; M19.90 Unspecified osteoarthritis, unspecified site; E66.9 Obesity, unspecified; Z68.35 Body mass index [BMI] 35.0-35.9, adult
CPT/HCPCS: 82962; J0735

== ENCOUNTER 2019-04-18 09:21 | Inpatient (IN) | payer OTHER ==
[2019-04-18 10:17] VITALS: BMI 35.3
--- NOTE | 2019-04-18 12:27 | HP ---
CIWA Score Nausea/Vomitin Muscle Tremors: 2 Anxiety: 1-Mildly Anxious Agitation: 0-Normal Activity Paroxysmal Sweats: 3 Orientation: 0-Oriented Tacttile Disturbances: 2-Mild Itch/Numbness/Burn Auditory Disturbances: 1-Very Mild Visual Disturbances: 0-None Headache: 2-Mild CIWA-Ar Total Score: 13 - Admission Criteria OASAS Guidelines: Admission for Medically Managed Detox: Requires at least one of the followin. CIWA greater than 12 2. Seizures within the past 24 hours 3. Delirium tremens within the past 24 hours 4. Hallucinations within the past 24 hours 5. Acute intervention needed for co occurring medical disorder 6. Acute intervention needed for co occurring psychiatric disorder 7. Severe withdrawal that cannot be handled at a lower level of care (continued vomiting, continued diarrhea, abnormal vital signs) requiring intravenous medication and/or fluids 8. Admission ROS [facility] Chief Complaint: detox from alcohol Allergies/Adverse Reactions: Allergies Allergy/AdvReac Type Severity Reaction Status Date / Time influenza virus vaccine ts Allergy Severe Swelling Verified 04/18/19 10:06 2012- [From Fluarix] pneumococcal vaccine Allergy Severe Swelling Verified 04/18/19 10:06 [Pneumococcal Vaccine] History of Present Illness: 53 y/o M with PMH gouty arthritis, HTN, HLD, DM2, insomnia, KRISTIAN, depression, GERD, ocular issues, who presents for alcohol detox. Pt's last drink was yesterday. He had 16 beers and started to develop abdominal pain. Thus he went to [facility] ER. Was told he had alcohol poisoning and was tx. Was also given two librium pills and referred to [facility] for detox. Pt drank 16 beers yesterday. Otherwise, he has been drinking 22 beers daily. He used to have up to 32 beers, however "has cut back." States that when he withdraws, he becomes tremulous and nauseated. Has blacked out previously. No history of alcohol withdrawal seizures. Drinks because he was feeling stressed when he was living on the [address]. He has also been stressed about his family situation, as he has not spoken to them in many years. was at [facility] detox and rehab 02/2019 as well as other visits PMH: as above PsxH: none. however has had multiple drainages of knees meds: allopurinol, colchicine, naproxen, flexeril, lidocaine patch, atorvastatin , metoprolol, metformin, seroquel, zoloft, folic acid, b12, protonix allergies: flu vaccine, pneumococcal vaccine - causes angioedema, swelling UE FH: mother - HTN, sister- DM2, father - alcoholic SH: used to live on the [address]. then was living in a [address] then in a single room occupancy, 4 cigs/day x 40 yrs alcohol use as above . denies drug use Exam Limitations: No Limitations - Ebola screening Have you traveled outside of the country in the last 21 days: No Have you had contact with anyone from an Ebola affected area: No Have you been sick,other than usual withdrawal symptoms: No Do you have a fever: No - Review of Systems Constitutional: Chills, Diaphoresis EENT: reports: Blurred Vision, Other (+watery eyes) Respiratory: reports: SOB at Rest Cardiac: reports: No Symptoms Reported GI: reports: Nausea : reports: No Symptoms Reported Musculoskeletal: reports: Back Pain, Gout Integumentary: reports: No Symptoms Reported Neuro: reports: No Symptoms reported Endocrine: reports: No Symptoms Reported Hematology: reports: No Symptoms Reported Psychiatric: reports: Orientated x3 Patient History - Patient Medical History Hx Anemia: No Hx Asthma: No Hx Chronic Obstructive Pulmonary Disease (COPD): No Hx Cancer: No Hx Cardiac Disorders: No Hx Congestive Heart Failure: No Hx Hypertension: Yes (on med) Hx Hypercholesterolemia: Yes (ON MED) Hx Pacemaker: No Hx Seizures: No Hx Dementia: No Hx Diabetes: Yes (NIDDM) Hx Gastrointestinal Disorders: Yes (ACID REFLUX) Hx Liver Disease: No Hx Genitourinary Disorders: No Hx Sexually Transmitted Disorders: No Hx Renal Disease (ESRD): No Hx Thyroid Disease: No Hx Human Immunodeficiency Virus (HIV): No (NEGATIVE HX last 2017 negative) Hx Hepatitis C: No Hx Depression: Yes Hx Suicide Attempt: No Hx Bipolar Disorder: No Hx Schizophrenia: Yes Other Medical History: gout, kristian, gerd - Patient Surgical History Past Surgical History: No Hx Neurologic Surgery: No Hx Cataract Extraction: No Hx Cardiac Surgery: No Hx Lung Surgery: No Hx Breast Surgery: No Hx Breast Biopsy: No Hx Abdominal Surgery: No Hx Appendectomy: No Hx Cholecystectomy: No Hx Genitourinary Surgery: No Hx Section: No Hx Orthopedic Surgery: No Other Surgical History: has had joint effusions drained in knees Anesthesia Reaction: No - PPD History Documented Results: Negative w/o proof Date: 11/06/18 Results: 0 mm PPD to be Administered?: No - Reproductive History Patient is a Female of Child Bearing Age (11 -55 yrs old): No - Smoking Cessation Smoking history: Current every day smoker Have you smoked in the past 12 months: Yes Aproximately how many cigarettes per day: 5 Cigars Per Day: 0 Hx Chewing Tobacco Use: No Initiated information on smoking cessation: Yes 'Breaking Loose' booklet given: 04/18/19 - Substances abused Alcohol Substance route: Oral Frequency: Daily Amount used: 16 beers (24oz cans),2pints of vodka Age of first use: 14 Date of last use: 04/17/19 Family Disease History - Family Disease History Family Disease History: Other: Father (alcohol,), Mother (), Brother (alcohol) Admission Physical Exam BHS - Vital Signs Vital Signs: Vital Signs - 24 hr 04/18/19 04/18/19 10:06 11:00 Temperature 97.4 F L 97.4 F L Pulse Rate 96 H 96 H Respiratory 20 20 Rate Blood Pressure 160/93 160/93 - Physical General Appearance: Yes: Within Normal Limits HEENTM: Yes: Within Normal Limits, Other (+tophi on R ear) Respiratory: Yes: Lungs Clear Neck: Yes: Supple Breast: Yes: Breast Exam Deferred Cardiology: Yes: Regular Rhythm, Regular Rate, S1, S2 Abdominal: Yes: Non Tender, Soft Genitourinary: Yes: Within Normal Limits Back: Yes: Normal Inspection Musculoskeletal: Yes: Within Normal Limits Extremities: Yes: Other (+swollen, gouty 3rd digits b/l, w chronic changes, knees w effusions) 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: reading interventionist II-XII NML intact Integumentary: Yes: Normal Color, Dry, Warm Lymphatic: Yes: Within Normal Limits - Diagnostic (1) Insomnia Current Visit: Yes Status: Chronic (2) Alcohol dependence with uncomplicated withdrawal Current Visit: Yes Status: Acute (3) Anxiety and depression Current Visit: Yes Status: Chronic (4) DM (diabetes mellitus), type 2 Current Visit: Yes Status: Chronic Qualifiers: Diabetes mellitus jail insulin use: without director long term care use Diabetes mellitus complication status: with other specified complication Qualified Code (s): E11.69 - Type 2 diabetes mellitus with other specified complication (5) GERD (gastroesophageal reflux disease) Current Visit: Yes Status: Chronic Qualifiers: Esophagitis presence: without esophagitis Qualified Code(s): K21.9 - Gastro -esophageal reflux disease without esophagitis (6) Gout Current Visit: Yes Status: Chronic Qualifiers: Gout site: multiple sites Gout etiology: other secondary cause Chronicity : unspecified Qualified Code(s): 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, multiple sites (7) HTN (hypertension) Current Visit: Yes Status: Chronic Qualifiers: Hypertension type: essential hypertension Qualified Code(s): I10 - Essential (primary) hypertension (8) Hyperlipidemia Current Visit: Yes Status: Chronic Qualifiers: Hyperlipidemia type: unspecified Qualified Code(s): E78.5 - Hyperlipidemia , unspecified Cleared for Admission BHS - Detox or Rehab S Level of Care: Medically Managed Detox Regimen/Protocol: Librium Breathalyzer - Breathalyzer Breathalyzer: 0 Urine Drug Screen - Test Device Lot number: [id number] Expiration date: 01/07/21 - Control Is test valid?: Yes - Results Drug screen NEGATIVE: No Urine drug screen results: BZO-Benzodiazepines Inpatient Rehab Admission - Rehab Decision to Admit Inpatient rehab admission?: No
[2019-04-18] MEDS ORDERED: chlordiazePOXIDE HCL 25 MG CAPSULE PO PRN (12:38)
[2019-04-18] MEDS ORDERED: MENTHOL/PHENOL 1 EACH UD MM PRN (12:42)
[2019-04-18] MEDS ORDERED: BISMUTH SUBSALICYLATE 524 MG/30 ML UD PO PRN (12:42)
[2019-04-18] MEDS ORDERED: ACETAMINOPHEN 325 MG TABLET (FP) PO PRN ×2 (12:42)
[2019-04-18] MEDS ORDERED: hydrOXYzine PAMOATE 25 MG CAPSULE (FP) PO PRN (12:42)
[2019-04-18] MEDS ORDERED: METHOCARBAMOL 500 MG TABLET PO PRN (12:42)
[2019-04-18] MEDS ORDERED: MAGNESIUM CITRATE 300 ML BOTTLE PO PRN (12:42)
[2019-04-18] MEDS ORDERED: MAGNESIUM HYDROX 2400MG/30ML ORAL SUSPENSION 30 ML CUP PO PRN (12:42)
[2019-04-18] MEDS ORDERED: MAG HYDROX/AL HYDROX/SIMETH 30 ML UNIT-DOSE CUP PO PRN (12:42)
[2019-04-18] MEDS: chlordiazePOXIDE HCL 25 MG CAPSULE PO SCH ×3 (14:08→22:15)
[2019-04-18] MEDS: PANTOPRAZOLE 40 MG TABLET (FP) PO SCH (14:50)
[2019-04-18] MEDS: METOPROLOL TARTRATE 50 MG TABLET (FP) PO SCH ×2 (14:50→22:15)
[2019-04-18] MEDS: COLCHICINE 0.6 MG CAP PO SCH (15:12)
[2019-04-18] MEDS: ALLOPURINOL 100 MG TABLET (FP) PO SCH (15:12)
[2019-04-18] MEDS: NICOTINE 14 MG/24 HOURS TOPICAL PATCH TD SCH (15:15)
--- NOTE | 2019-04-18 16:35 | CONSULT ---
[facility] Psychiatric Consult - Data Date of interview: 04/18/19 Admission source: [facility] Identifying data: Patient is a 53 year old single male, without children, unemployed, homeless, and is supported by [facility]. This is one of multiple admissions for patient. Patient admitted to for alcohol dependence. Substance Abuse History: Smoking Cessation. Smoking history: Current every day smoker. Have you smoked in the past 12 months: Yes. Aproximately how many cigarettes per day: 5. Cigars Per Day: 0. Hx Chewing Tobacco Use: No. Initiated information on smoking cessation: Yes. 'Breaking Loose' booklet given : 04/18/19. - Substances abused. Alcohol. Substance route: Oral. Frequency: Daily. Amount used: 16 beers (24oz cans),2pints of vodka. Age of first use: 14. Date of last use: 04/17/19 Medical History: Significant for gout, osteoarthritis, GERD, dyslipidemia, diabetes mellitus, hypertension, obesity and a history of sleep apnea and abdominal hernia repair in 2003 Psychiatric History: Mr. Selby reports history of multiple psychiatric hospitaliztions but is unable to recall the names of the facilties. As per previous notes patient has been hospitalized at [facility]. States his diagnosis is depression although previous records report past a history of schizoaffective disorder. Reports currently taking zoloft 100mg + Seroquel 400mg. States the psychiatrist Dr. Lan writes his prescriptions and they are delivered to his place of residence. At present, patient denies auditory/ visual hallucinations, suicidal/homicidal ideation. Patient has been admitted to detox/rehab several times and has accepted zoloft 100mg + Seroquel 400mg with favorable effects. Reports most recently taking his medications 3 days ago. Physical/Sexual Abuse/Trauma History: denies. Mental Status Exam - Mental Status Exam Alert and Oriented to: Time, Place, Person Cognitive Function: Good Patient Appearance: Well Groomed Mood: Euthymic Affect: Mood Congruent Patient Behavior: Cooperative Speech Pattern: Appropriate Voice Loudness: Normal Thought Process: Goal Oriented Thought Disorder: Not Present Hallucinations: Denies Suicidal Ideation: Denies Homicidal Ideation: Denies Insight/Judgement: Poor Sleep: Fair Appetite: Fair Muscle strength/Tone: Normal Gait/Station: Normal Psychiatric Findings - Problem List ([place] 1, 2,3) (1) Alcohol-induced sleep disorder Current Visit: Yes Status: Acute (2) Alcohol dependence with uncomplicated withdrawal Current Visit: Yes Status: Acute (3) Schizoaffective disorder Current Visit: Yes Status: Suspected - Initial Treatment Plan Initial Treatment Plan: Psychoeducation provided. Detox in progress. Will order Zoloft 100mg + Seroquel 300mg HS (reduce dosage ordered due to risk for falls and oversedation). Benefits and side effects discussed. Verbal consent given.
[2019-04-18] MEDS: metFORMIN HCL 500 MG TABLET (FP) PO SCH (17:30)
[2019-04-18] MEDS: INSULIN SLIDING SCALE (NOVOLOG) 1 VIAL SQ SCH ×2 (18:10→23:16)
[2019-04-18] MEDS ORDERED: cloNIDine HCL 0.1 MG TABLET PO ONE (20:17)
[2019-04-18] MEDS: QUEtiapine FUMARATE 300 MG TABLET PO SCH (22:15)
[2019-04-18] MEDS: THIAMINE HCL 100 MG TABLET (FP) PO SCH (22:15)
[2019-04-18] MEDS: ATORVASTATIN CA 80 MG TABLET (FP) PO SCH (22:15)
[2019-04-18] MEDS: IBUPROFEN 400 MG TABLET (FP) PO PRN (22:18)
[2019-04-19] MEDS: chlordiazePOXIDE HCL 25 MG CAPSULE PO SCH ×3 (06:24→17:21)
[2019-04-19] MEDS: INSULIN SLIDING SCALE (NOVOLOG) 1 VIAL SQ SCH ×4 (07:02→22:15)
[2019-04-19] MEDS: metFORMIN HCL 500 MG TABLET (FP) PO SCH ×2 (07:02→17:20)
[2019-04-19] MEDS: PRENATAL VITAMINS W/ FOLIC ACID TABLET (FP) PO SCH (11:16)
[2019-04-19] MEDS: SERTRALINE HCL 50 MG TABLET (FP) PO SCH (11:16)
[2019-04-19] MEDS: ALLOPURINOL 100 MG TABLET (FP) PO SCH (11:16)
[2019-04-19] MEDS: PANTOPRAZOLE 40 MG TABLET (FP) PO SCH (11:16)
[2019-04-19] MEDS: METOPROLOL TARTRATE 50 MG TABLET (FP) PO SCH ×2 (11:17→22:26)
[2019-04-19] MEDS: COLCHICINE 0.6 MG CAP PO SCH (11:19)
[2019-04-19] MEDS: NICOTINE 14 MG/24 HOURS TOPICAL PATCH TD SCH (11:20)
--- NOTE | 2019-04-19 11:24 | PN ---
S CIWA - CIWA Score Nausea/Vomitin-No Nausea/No Vomiting Muscle Tremors: 3 Anxiety: 3 Agitation: 4-Moderately Restless Paroxysmal Sweats: 3 Orientation: 0-Oriented Tacttile Disturbances: 0-None Auditory Disturbances: 0-None Visual Disturbances: 0-None Headache: 0-None Present CIWA-Ar Total Score: 13 BHS Progress Note (SOAP) Subjective: sweats interrupted sleep body aches mild shakes Objective: 04/19/19 11:24 Vital Signs Temperature 98.6 F 04/19/19 06:24 Pulse Rate 60 04/19/19 06:24 Respiratory Rate 16 04/19/19 06:24 Blood Pressure 108/68 04/19/19 06:24 O2 Sat by Pulse Oximetry (%) Laboratory Tests 04/18/19 04/18/19 04/18/19 12:55 16:32 22:14 POC Glucometer 119 114 114 Uric Acid 04/19/19 04/19/19 06:22 08:00 POC Glucometer 119 Uric Acid 9.5 H rest of labs pending aaox3 ambulating no acute distress Assessment: 04/19/19 11:24 withdrawal sx Plan: continue detox increase fluids pending labs
[2019-04-19] MEDS: ATORVASTATIN CA 80 MG TABLET (FP) PO SCH (22:26)
[2019-04-19] MEDS: THIAMINE HCL 100 MG TABLET (FP) PO SCH (22:26)
[2019-04-19] MEDS: QUEtiapine FUMARATE 300 MG TABLET PO SCH (22:26)
[2019-04-19] MEDS: MELATONIN 5 MG TABLETS PO PRN (22:27)
[2019-04-19] MEDS: IBUPROFEN 400 MG TABLET (FP) PO PRN (22:28)
[2019-04-20] MEDS: metFORMIN HCL 500 MG TABLET (FP) PO SCH ×2 (06:49→17:46)
[2019-04-20] MEDS: chlordiazePOXIDE HCL 25 MG CAPSULE PO SCH ×4 (06:49→23:09)
[2019-04-20] MEDS: INSULIN SLIDING SCALE (NOVOLOG) 1 VIAL SQ SCH ×4 (07:06→23:40)
[2019-04-20] MEDS: ALLOPURINOL 100 MG TABLET (FP) PO SCH (10:30)
[2019-04-20] MEDS: COLCHICINE 0.6 MG CAP PO SCH (10:30)
[2019-04-20] MEDS: PANTOPRAZOLE 40 MG TABLET (FP) PO SCH (10:30)
[2019-04-20] MEDS: METOPROLOL TARTRATE 50 MG TABLET (FP) PO SCH ×2 (10:30→23:09)
[2019-04-20] MEDS: SERTRALINE HCL 50 MG TABLET (FP) PO SCH (10:30)
[2019-04-20] MEDS: PRENATAL VITAMINS W/ FOLIC ACID TABLET (FP) PO SCH (10:30)
--- NOTE | 2019-04-20 12:17 | PN ---
S CIWA - CIWA Score Nausea/Vomitin-Mild Nausea/No Vomiting Muscle Tremors: 2 Anxiety: 3 Agitation: 1-Slight > Activity Paroxysmal Sweats: 3 Orientation: 0-Oriented Tacttile Disturbances: 0-None Auditory Disturbances: 0-None Visual Disturbances: 0-None Headache: 0-None Present CIWA-Ar Total Score: 10 BHS Progress Note (SOAP) Subjective: Generalized body ache Objective: 04/20/19 12:13 Last Vital Signs Temp Pulse Resp BP Pulse Ox 97.3 F L 79 18 146/88 04/20/19 10:00 04/20/19 10:00 04/20/19 10:00 04/20/19 10:00 B/P elevated (has htn, on med) Laboratory Tests 04/18/19 04/18/19 04/18/19 12:55 16:32 22:14 POC Glucometer 119 114 114 Uric Acid 04/19/19 04/19/19 04/19/19 06:22 08:00 11:25 POC Glucometer 119 109 Uric Acid 9.5 H 04/19/19 04/19/19 04/20/19 16:38 21:58 06:35 POC Glucometer 134 100 120 Uric Acid Lab results from 01/09/19 reviewed. Will order admission CBC and CMP in AM. Assessment: 04/20/19 12:15 Withdrawal sxs Plan: Continue detox Encouraged PO water hydration Admission CBC/CMP and UA ordered in AM
[2019-04-20] MEDS: NICOTINE 14 MG/24 HOURS TOPICAL PATCH TD SCH (13:50)
[2019-04-20] MEDS: IBUPROFEN 400 MG TABLET (FP) PO PRN ×2 (13:56→23:11)
[2019-04-20] MEDS ORDERED: INSULIN SLIDING SCALE (NOVOLOG) 1 VIAL SQ ONE (17:34)
[2019-04-20] MEDS: QUEtiapine FUMARATE 300 MG TABLET PO SCH (23:09)
[2019-04-20] MEDS: ATORVASTATIN CA 80 MG TABLET (FP) PO SCH (23:11)
[2019-04-20] MEDS: MELATONIN 5 MG TABLETS PO PRN (23:12)
[2019-04-20] MEDS: THIAMINE HCL 100 MG TABLET (FP) PO SCH (23:12)
[2019-04-21] MEDS ORDERED: chlordiazePOXIDE HCL 10 MG CAPSULE PO PRN
--- NOTE | 2019-04-21 09:23 | PN ---
Teaching Attending Note Name of Resident: Nery Pham ATTENDING PHYSICIAN STATEMENT I saw and evaluated the patient. I reviewed the resident's note and discussed the case with the resident. I agree with the resident's findings and plan as documented. SUBJECTIVE: Patient for admission OBJECTIVE: admission for detox ASSESSMENT AND PLAN: Agreed with resident note physical and history from 04/18/19 Dr. Graves
[2019-04-21 10:39] LABS: BILIRUBIN,TOTAL 0.6 mg/dL (0.2-1); BLOOD UREA NITROGEN 13.1 mg/dL (7-18); CALCIUM 8.8 mg/dL (8.5-10.1); CREATININE 0.9 mg/dL (0.55-1.3); POTASSIUM 3.6 mmol/L (3.5-5.1)
[2019-04-21] MEDS: SERTRALINE HCL 50 MG TABLET (FP) PO SCH (10:48)
[2019-04-21] MEDS: ALLOPURINOL 100 MG TABLET (FP) PO SCH (10:48)
[2019-04-21] MEDS: PRENATAL VITAMINS W/ FOLIC ACID TABLET (FP) PO SCH (10:48)
[2019-04-21] MEDS: chlordiazePOXIDE HCL 10 MG CAPSULE PO SCH ×2 (10:48→16:52)
[2019-04-21] MEDS: COLCHICINE 0.6 MG CAP PO SCH (10:49)
[2019-04-21] MEDS: PANTOPRAZOLE 40 MG TABLET (FP) PO SCH (10:49)
[2019-04-21] MEDS: METOPROLOL TARTRATE 50 MG TABLET (FP) PO SCH (10:49)
[2019-04-21] MEDS: NICOTINE 14 MG/24 HOURS TOPICAL PATCH TD SCH ×2 (11:41→11:45)
[2019-04-21] MEDS: INSULIN SLIDING SCALE (NOVOLOG) 1 VIAL SQ SCH ×2 (11:42→16:48)
[2019-04-21 12:14] LABS: BASO % 1.3 % (0-2.0); EOS % 6.6 % (0-4.5); HEMATOCRIT 37.2 % (35.4-49); HEMOGLOBIN 12.5 GM/dL (11.7-16.9); LYMPH % 34.6 % (8-40); MCH 31.2 pg (25.7-33.7); MCHC 33.7 g/dl (32.0-35.9); MEAN CELL VOLUME 92.8 fl (80-96); MEAN PLT VOLUME 10.8 fl (7.5-11.1); MONO % 10.8 % (3.8-10.2); NEUT % 46.7 % (42.8-82.8); PLATELET COUNT 107 K/MM3 (134-434); RBC 4.01 M/mm3 (4.00-5.60); WHITE BLOOD COUNT 3.3 K/mm3 (4.0-10.0)
--- NOTE | 2019-04-21 14:43 | PN ---
S CIWA - CIWA Score Nausea/Vomitin-No Nausea/No Vomiting Muscle Tremors: 3 Anxiety: 3 Agitation: 0-Normal Activity Paroxysmal Sweats: No Perspiration Orientation: 0-Oriented Tacttile Disturbances: 0-None Auditory Disturbances: 0-None Visual Disturbances: 2-Mild Sensitivity Headache: 0-None Present CIWA-Ar Total Score: 8 BHS Progress Note (SOAP) Subjective: Anxious, Tremors. Objective: PATIENT A & O X 3. IN NO ACUTE DISTRESS. 04/21/19 14:40 Vital Signs Temperature 97.7 F 04/21/19 13:51 Pulse Rate 84 04/21/19 13:51 Respiratory Rate 18 04/21/19 13:51 Blood Pressure 141/96 04/21/19 13:51 O2 Sat by Pulse Oximetry (%) Laboratory Tests 04/18/19 04/18/19 04/18/19 12:55 16:32 22:14 WBC RBC Hgb Hct MCV MCH MCHC RDW Plt Count MPV Absolute Neuts (auto) Neutrophils % Lymphocytes % Monocytes % Eosinophils % Basophils % Nucleated RBC % Sodium Potassium Chloride Carbon Dioxide Anion Gap BUN Creatinine Est GFR (CKD-EPI)AfAm Est GFR (CKD-EPI)NonAf POC Glucometer 119 114 114 Random Glucose Uric Acid Calcium Total Bilirubin AST ALT Alkaline Phosphatase Total Protein Albumin 04/19/19 04/19/19 04/19/19 06:22 08:00 11:25 WBC RBC Hgb Hct MCV MCH MCHC RDW Plt Count MPV Absolute Neuts (auto) Neutrophils % Lymphocytes % Monocytes % Eosinophils % Basophils % Nucleated RBC % Sodium Potassium Chloride Carbon Dioxide Anion Gap BUN Creatinine Est GFR (CKD-EPI)AfAm Est GFR (CKD-EPI)NonAf POC Glucometer 119 109 Random Glucose Uric Acid 9.5 H Calcium Total Bilirubin AST ALT Alkaline Phosphatase Total Protein Albumin 04/19/19 04/19/19 04/20/19 16:38 21:58 06:35 WBC RBC Hgb Hct MCV MCH MCHC RDW Plt Count MPV Absolute Neuts (auto) Neutrophils % Lymphocytes % Monocytes % Eosinophils % Basophils % Nucleated RBC % Sodium Potassium Chloride Carbon Dioxide Anion Gap BUN Creatinine Est GFR (CKD-EPI)AfAm Est GFR (CKD-EPI)NonAf POC Glucometer 134 100 120 Random Glucose Uric Acid Calcium Total Bilirubin AST ALT Alkaline Phosphatase Total Protein Albumin 04/20/19 04/21/1919 16:54 07:00 07:00 WBC 3.3 L RBC 4.01 Hgb 12.5 Hct 37.2 MCV 92.8 MCH 31.2 MCHC 33.7 RDW 15.0 Plt Count 107 L D MPV 10.8 Absolute Neuts (auto) 1.5 Neutrophils % 46.7 D Lymphocytes % 34.6 D Monocytes % 10.8 H Eosinophils % 6.6 H D Basophils % 1.3 Nucleated RBC % 0 Sodium 144 Potassium 3.6 Chloride 109 H Carbon Dioxide 27 Anion Gap 8 BUN 13.1 Creatinine 0.9 Est GFR (CKD-EPI)AfAm 111.05 Est GFR (CKD-EPI)NonAf 95.81 POC Glucometer 239 Random Glucose 91 Uric Acid Calcium 8.8 Total Bilirubin 0.6 AST 31 ALT 32 Alkaline Phosphatase 61 Total Protein 6.0 L Albumin 3.0 L 04/21/19 11:37 WBC RBC Hgb Hct MCV MCH MCHC RDW Plt Count MPV Absolute Neuts (auto) Neutrophils % Lymphocytes % Monocytes % Eosinophils % Basophils % Nucleated RBC % Sodium Potassium Chloride Carbon Dioxide Anion Gap BUN Creatinine Est GFR (CKD-EPI)AfAm Est GFR (CKD-EPI)NonAf POC Glucometer 168 Random Glucose Uric Acid Calcium Total Bilirubin AST ALT Alkaline Phosphatase Total Protein Albumin LABS NOTED. PATIENT HAS HAD LOW PLATELET LEVELS ON PREVIOUS ADMISSIONS. 04/21/19 14:41 Assessment: 04/21/19 14:42 WITHDRAWAL SYMPTOMS. LEUKOPENIA. THROMBOCYTOPENIA. Plan: CONTINUE DETOX.
[2019-04-21 17:08] VITALS: BP 147/84; PULSE 63; TEMP 98.4
[2019-04-21] MEDS: metFORMIN HCL 500 MG TABLET (FP) PO SCH (17:25)
--- NOTE | 2019-04-21 19:52 | DS ---
[facility] Detox Discharge Summary Admission Date: 04/18/19 Discharge Date: 04/21/19 - History Present History: Alcohol Dependence Pertinent Past History: Pt states feeling fine. No withdrawal symptoms. Has multiple appointments tomorrow and needs to go. Does not need home prescriptions. Has a PCP. - Physical Exam Results Vital Signs: Vital Signs Temperature 98.4 F 04/21/19 17:07 Pulse Rate 63 04/21/19 17:07 Respiratory Rate 16 04/21/19 17:07 Blood Pressure 147/84 04/21/19 17:07 O2 Sat by Pulse Oximetry (%) - Treatment Hospital Course: Detox Protocol Followed, Detoxed Safely, Responded well, Discharged Condition Good - Medication Discharge Medications: Ambulatory Orders Metoprolol Tartrate [Lopressor] 100 mg PO BID 10/04/17 Atorvastatin Ca [Lipitor] 80 mg PO HS #30 tablet 01/24/18 Allopurinol [Zyloprim -] 100 mg PO DAILY 04/25/18 Colchicine [Colcrys] 0.6 mg PO DAILY 04/25/18 Metformin HCl [Glucophage] 500 mg PO BID 04/25/18 Pantoprazole Sodium [Protonix -] 40 mg PO DAILY 04/25/18 Cyclobenzaprine HCl [Flexeril 10 mg] 10 mg PO TID PRN 11/04/18 Naproxen [Naprosyn -] 500 mg PO DAILY 11/04/18 Quetiapine Fumarate [Seroquel -] 400 mg PO HS #30 tab 11/04/18 Sertraline HCl [Zoloft] 100 mg PO DAILY #30 tablet 11/04/18 Folic Acid - 1 mg PO DAILY 03/04/19 Thiamine HCl [Vitamin B-1] 100 mg PO DAILY 03/04/19 Hypromellose/Pf [Retaine Hpmc 0.3% Eye Drops] 1 ml OP ASDIR 04/18/19 Lidocaine 4% Topical [Xylocaine 4% Topical] 1 applic MM ASDIR 04/18/19 - AMA Did Patient Leave Against Medical Advice: No
[2019-04-22] MEDS ORDERED: chlordiazePOXIDE HCL 10 MG CAPSULE PO SCH (05:00)
[2019-04-23] MEDS ORDERED: chlordiazePOXIDE HCL 10 MG CAPSULE PO ONE (05:00)
== END 2019-04-21 20:03 | disposition home or self-care (01) | DRG 775 ==
LOC: YASAS 09:21 → Y6N 12:58
PROVIDERS: ADMIT Surgery; ATTEND Surgery
PROC: HZ2ZZZZ Detoxification Services for Substance Abuse Treatment (ICD-10-PCS; principal; 2019-04-18)
DX: F10.230 Alcohol dependence with withdrawal, uncomplicated (principal); F10.282 Alcohol dependence with alcohol-induced sleep disorder; F17.210 Nicotine dependence, cigarettes, uncomplicated; F41.9 Anxiety disorder, unspecified; F25.9 Schizoaffective disorder, unspecified; F32.9 Major depressive disorder, single episode, unspecified; I10 Essential (primary) hypertension; D72.819 Decreased white blood cell count, unspecified; D69.6 Thrombocytopenia, unspecified; M19.90 Unspecified osteoarthritis, unspecified site; M10.9 Gout, unspecified; K21.9 Gastro-esophageal reflux disease without esophagitis; E78.5 Hyperlipidemia, unspecified; E11.69 Type 2 diabetes mellitus with other specified complication; G47.30 Sleep apnea, unspecified; G47.00 Insomnia, unspecified; E66.9 Obesity, unspecified; Z68.35 Body mass index [BMI] 35.0-35.9, adult
CPT/HCPCS: 36415; 80053; 82962; 84550; 85025; J0735

== ENCOUNTER 2019-06-08 09:39 | Inpatient (IN) | payer OTHER ==
[2019-06-08 11:31] VITALS: BMI 35.6
--- NOTE | 2019-06-08 13:28 | HP ---
CIWA Score Nausea/Vomitin Muscle Tremors: 2 Anxiety: 3 Agitation: 2 Paroxysmal Sweats: 1-Minimal Palms Moist Orientation: 0-Oriented Tacttile Disturbances: 1-Very Mild Itch/Numbness Auditory Disturbances: 0-None Visual Disturbances: 0-None Headache: 2-Mild CIWA-Ar Total Score: 13 - Admission Criteria OASAS Guidelines: Admission for Medically Managed Detox: Requires at least one of the followin. CIWA greater than 12 2. Seizures within the past 24 hours 3. Delirium tremens within the past 24 hours 4. Hallucinations within the past 24 hours 5. Acute intervention needed for co occurring medical disorder 6. Acute intervention needed for co occurring psychiatric disorder 7. Severe withdrawal that cannot be handled at a lower level of care (continued vomiting, continued diarrhea, abnormal vital signs) requiring intravenous medication and/or fluids 8. Admission ROS S - HPI Chief Complaint: i need help to stop drinking alcohol Allergies/Adverse Reactions: Allergies Allergy/AdvReac Type Severity Reaction Status Date / Time influenza virus vaccine ts Allergy Severe Swelling Verified 06/08/19 11:16 2012- [From [employer]] pneumococcal vaccine Allergy Severe Swelling Verified 06/08/19 11:16 [Pneumococcal Vaccine] History of Present Illness: this 53 years old male with alcohol dependence seeking detox,seen in [facility] last night,send in for detox, had previous admission this facility from 04/18/19 to 04/21/19 denied seizure had syncope history of hypertension,type 2 dm,gout,hyperchplesterolemia depression nicotine dependence 5 cigarette longest sobriety 3 months plan for rehab after detox Exam Limitations: No Limitations - Ebola screening Have you traveled outside of the country in the last 21 days: No (N) Have you had contact with anyone from an Ebola affected area: No Do you have a fever: No - Review of Systems Constitutional: Loss of Appetite, Malaise, Night Sweats, Changes in sleep, Weakness EENT: reports: Tearing, Nose Congestion, Other (dry eye) Respiratory: reports: No Symptoms reported Cardiac: reports: No Symptoms Reported GI: reports: Nausea, Poor Appetite, Abdominal cramping : reports: No Symptoms Reported Musculoskeletal: reports: Back Pain, Muscle Pain Integumentary: reports: Dryness Neuro: reports: Headache, Tremors Endocrine: reports: No Symptoms Reported Hematology: reports: No Symptoms Reported Psychiatric: reports: No Sypmtoms Reported, Judgement Intact, Mood/Affect Appropiate, Orientated x3, Depressed Other Systems: Reviewed and Negative Patient History - Patient Medical History Hx Anemia: No Hx Asthma: No Hx Chronic Obstructive Pulmonary Disease (COPD): No Hx Cancer: No Hx Cardiac Disorders: No Hx Congestive Heart Failure: No Hx Hypertension: Yes (on med) Hx Hypercholesterolemia: Yes (ON MED) Hx Pacemaker: No Hx Seizures: No Hx Dementia: No Hx Diabetes: Yes (NIDDM) Hx Gastrointestinal Disorders: Yes (ACID REFLUX) Hx Liver Disease: No Hx Genitourinary Disorders: No Hx Sexually Transmitted Disorders: No Hx Renal Disease (ESRD): No Hx Thyroid Disease: No Hx Human Immunodeficiency Virus (HIV): No (NEGATIVE HX last 2017 negative) Hx Hepatitis C: No Hx Depression: Yes Hx Suicide Attempt: No Hx Bipolar Disorder: No Hx Schizophrenia: Yes Other Medical History: no suicidal,no homicidal - Patient Surgical History Past Surgical History: No Hx Neurologic Surgery: No Hx Cataract Extraction: No Hx Cardiac Surgery: No Hx Lung Surgery: No Hx Breast Surgery: No Hx Breast Biopsy: No Hx Abdominal Surgery: No Hx Appendectomy: No Hx Cholecystectomy: No Hx Genitourinary Surgery: No Hx Section: No Hx Orthopedic Surgery: No Other Surgical History: has had joint effusions drained in knees Anesthesia Reaction: No - PPD History Previous Implant?: Yes Documented Results: Negative w/proof Date: 11/06/18 Results: 0 mm PPD to be Administered?: No - Smoking Cessation Smoking history: Current every day smoker Have you smoked in the past 12 months: Yes Aproximately how many cigarettes per day: 5 Cigars Per Day: 0 Hx Chewing Tobacco Use: No Initiated information on smoking cessation: Yes 'Breaking Loose' booklet given: 06/08/19 - Substance & Tx. History Hx Alcohol Use: Yes Substance Use Type: Alcohol Hx Substance Use Treatment: Yes ([facility] 04/18/19 to 04/21/19) - Substances abused Alcohol Substance route: Oral Frequency: Daily Amount used: 16 beers (24oz cans),2pints of vodka Age of first use: 14 Date of last use: 06/07/19 Admission Physical Exam BHS - Vital Signs Vital Signs: Vital Signs - 24 hr 06/08/19 11:27 Temperature 98.9 F Pulse Rate 106 H Respiratory 20 Rate Blood Pressure 193/106 H - Physical General Appearance: Yes: Moderate Distress, Tremorous, Irritable, Sweating, Anxious HEENTM: Yes: Normal ENT Inspection, GRACIELA, Pharynx Normal Respiratory: Yes: Lungs Clear, Normal Breath Sounds, No Respiratory Distress Neck: Yes: Within Normal Limits, Supple, Trachea in good position Breast: Yes: Within Normal Limits Cardiology: Yes: Within Normal Limits, Regular Rhythm, Regular Rate, S1, S2 Abdominal: Yes: Within Normal Limits, Normal Bowel Sounds, Non Tender, Flat, Soft Genitourinary: Yes: Within Normal Limits Back: Yes: Muscle Spasm Musculoskeletal: Yes: Back pain, Muscle Pain Extremities: Yes: Tremors 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: stock preparer II-XII NML intact, Fully Oriented, Alert, Motor Strength 5/5 Integumentary: Yes: Dry Lymphatic: Yes: Within Normal Limits - Diagnostic (1) Alcohol dependence with uncomplicated withdrawal Current Visit: Yes Status: Acute (2) Syncope Current Visit: No Status: Acute (3) Gouty arthritis Current Visit: No Status: Chronic (4) HTN (hypertension) Current Visit: No Status: Chronic Qualifiers: Hypertension type: essential hypertension Qualified Code(s): I10 - Essential (primary) hypertension (5) Hyperlipidemia Current Visit: No Status: Chronic Qualifiers: Hyperlipidemia type: unspecified Qualified Code(s): E78.5 - Hyperlipidemia , unspecified (6) MDD (major depressive disorder) Current Visit: No Status: Chronic Qualifiers: Major depression episode severity: unspecified Comment: As per records and self-report. Cleared for Admission S - Detox or Rehab [facility] Level of Care: Medically Managed Detox Regimen/Protocol: Librium Breathalyzer - Breathalyzer Breathalyzer: 0 Urine Drug Screen - Test Device Lot number: [id number] Expiration date: 02/07/21 - Control Is test valid?: Yes - Results Drug screen NEGATIVE: Yes Urine drug screen results: BZO-Benzodiazepines Inpatient Rehab Admission - Rehab Decision to Admit Inpatient rehab admission?: No
[2019-06-08] MEDS ORDERED: chlordiazePOXIDE HCL 25 MG CAPSULE PO PRN (13:35)
[2019-06-08] MEDS ORDERED: MAGNESIUM CITRATE 300 ML BOTTLE PO PRN (13:35)
[2019-06-08] MEDS ORDERED: MELATONIN 5 MG TABLETS PO PRN (13:35)
[2019-06-08] MEDS ORDERED: BISMUTH SUBSALICYLATE 524 MG/30 ML UD PO PRN (13:35)
[2019-06-08] MEDS ORDERED: MENTHOL/PHENOL 1 EACH UD MM PRN (13:35)
[2019-06-08] MEDS ORDERED: MAGNESIUM HYDROX 2400MG/30ML ORAL SUSPENSION 30 ML CUP PO PRN (13:35)
[2019-06-08] MEDS ORDERED: METHOCARBAMOL 500 MG TABLET PO PRN (13:35)
[2019-06-08] MEDS ORDERED: ACETAMINOPHEN 325 MG TABLET (FP) PO PRN (13:35)
[2019-06-08] MEDS ORDERED: MAG HYDROX/AL HYDROX/SIMETH 30 ML UNIT-DOSE CUP PO PRN (13:35)
--- NOTE | 2019-06-08 15:19 | CONSULT ---
[facility] Psychiatric Consult - Data Date of interview: 06/08/19 Admission source: [facility] Identifying data: Patient is a 53 year old single male, unemployed, domiciled, and is supported by [facility]. This is one of multiple admissions for patient. Patient admitted to for alcohol dependence. Substance Abuse History: Smoking Cessation. Smoking history: Current every day smoker. Have you smoked in the past 12 months: Yes. Aproximately how many cigarettes per day: 5. Cigars Per Day: 0. Hx Chewing Tobacco Use: No. Initiated information on smoking cessation: Yes. 'Breaking Loose' booklet given : 06/08/19. - Substance & Tx. History. Hx Alcohol Use: Yes. Substance Use Type: Alcohol. Hx Substance Use Treatment: Yes ([facility] 04/18/19 to 04/21/19). - Substances abused. Alcohol. Substance route: Oral. Frequency: Daily. Amount used: 16 beers (24oz cans),2pints of vodka. Age of first use: 14. Date of last use: 06/07/19 Medical History: Hypercholesterolemia, hypertension, diabetes, Acid reflux Psychiatric History: Patient's first psychiatric contact was in 2003 after patient was admitted to a psychiatric facility (unable to remember) secondary to depression and auditory hallucinations. He was diagnosed with schizophrenia and treated with psychotropic medications. Mr. Selby reports history of multiple psychiatric hospitalizations ([facility], [facility], [facility], and [facility]) most recently four years ago at [facility] for auditory hallucinations. Patient denies history of suicide attempt. Mr. Selby was receiving psychiatric care from Dr. Lan two years ago and was prescribed zoloft 100mg daily + Seroquel 400mg. Patient continues to receive his prescriptions from his PCP. Reports most recently taking his medications last week. At present, patient denies auditory/visual hallucinations , paranoid ideation, suicidal/homicidal ideation. Physical/Sexual Abuse/Trauma History: denies. Mental Status Exam - Mental Status Exam Alert and Oriented to: Time, Place, Person Cognitive Function: Good Patient Appearance: Well Groomed Mood: Euthymic Affect: Mood Congruent Patient Behavior: Cooperative Speech Pattern: Appropriate Voice Loudness: Normal Thought Process: Goal Oriented Thought Disorder: Not Present Hallucinations: Denies Suicidal Ideation: Denies Homicidal Ideation: Denies Insight/Judgement: Poor Sleep: Poorly Appetite: Fair Muscle strength/Tone: Normal Gait/Station: Normal Psychiatric Findings - Problem List ([place] 1, 2,3) (1) Alcohol dependence with uncomplicated withdrawal Status: Acute (2) Alcohol-induced sleep disorder Status: Acute (3) Schizoaffective disorder Status: Chronic - Initial Treatment Plan Initial Treatment Plan: Psychoeducation provided. Detoxification in progress. Will order Zoloft 100mg + Seroquel 300mg HS (reduced dosage due to risk of oversedation). Benefits and side effects discussed. Verbal consent given.
[2019-06-08] MEDS: NICOTINE 7 MG/24 HOURS TOPICAL PATCH TD SCH (15:27)
[2019-06-08] MEDS: metFORMIN HCL 500 MG TABLET (FP) PO SCH (16:49)
[2019-06-08] MEDS: chlordiazePOXIDE HCL 25 MG CAPSULE PO SCH ×2 (16:50→22:26)
[2019-06-08] MEDS ORDERED: cloNIDine HCL 0.1 MG TABLET PO ONE (19:48)
--- NOTE | 2019-06-08 19:49 | PN ---
S Progress Note Note: patient has history of hypertension on lopressor 100 mgs po bid ordered bp 188/104 clonidine 0.2 mg po now bp monitoring continue detox no complaint
[2019-06-08] MEDS ORDERED: QUEtiapine FUMARATE 100 MG TABLET (FP) ONE (20:05)
[2019-06-08] MEDS: THIAMINE HCL 100 MG TABLET (FP) PO SCH (22:26)
[2019-06-08] MEDS: QUEtiapine FUMARATE 300 MG TABLET PO SCH (22:26)
[2019-06-08] MEDS: ARTIFICIAL TEARS (POLYVINYL ALCOHOL) OPTH DROPS OU SCH (22:26)
[2019-06-08] MEDS: METOPROLOL TARTRATE 50 MG TABLET (FP) PO SCH (22:26)
[2019-06-08] MEDS: ATORVASTATIN CA 80 MG TABLET (FP) PO SCH (22:26)
[2019-06-08] MEDS: ACETAMINOPHEN 325 MG TABLET (FP) PO PRN (22:28)
[2019-06-08] MEDS: hydrOXYzine PAMOATE 25 MG CAPSULE (FP) PO PRN (22:29)
[2019-06-09] MEDS: chlordiazePOXIDE HCL 25 MG CAPSULE PO SCH ×4 (06:09→22:28)
[2019-06-09] MEDS: metFORMIN HCL 500 MG TABLET (FP) PO SCH ×2 (07:33→17:56)
[2019-06-09] MEDS ORDERED: SERTRALINE HCL 50 MG TABLET (FP) PO SCH (10:00)
[2019-06-09] MEDS ORDERED: PRENATAL VITAMINS W/ FOLIC ACID TABLET (FP) PO SCH (10:00)
[2019-06-09] MEDS ORDERED: ALLOPURINOL 100 MG TABLET (FP) PO SCH (10:00)
[2019-06-09] MEDS ORDERED: PANTOPRAZOLE 40 MG TABLET (FP) PO SCH (10:00)
[2019-06-09] MEDS ORDERED: COLCHICINE 0.6 MG CAP PO SCH (10:00)
[2019-06-09] MEDS: METOPROLOL TARTRATE 50 MG TABLET (FP) PO SCH ×2 (10:33→22:29)
[2019-06-09] MEDS: NICOTINE 7 MG/24 HOURS TOPICAL PATCH TD SCH (10:33)
[2019-06-09] MEDS: ARTIFICIAL TEARS (POLYVINYL ALCOHOL) OPTH DROPS OU SCH ×2 (10:35→22:30)
[2019-06-09 11:48] LABS: HEMOGLOBIN 12.4 GM/dL (11.7-16.9); MCH 31.9 pg (25.7-33.7); MCHC 34.3 g/dl (32.0-35.9); MEAN CELL VOLUME 93.1 fl (80-96); MEAN PLT VOLUME 10.2 fl (7.5-11.1); PLATELET COUNT 113 K/MM3 (134-434); RBC 3.87 M/mm3 (4.00-5.60); RDW 14.8 % (11.9-15.9); WHITE BLOOD COUNT 3.1 K/mm3 (4.0-10.0)
--- NOTE | 2019-06-09 12:06 | PN ---
S CIWA - CIWA Score Nausea/Vomitin-Mild Nausea/No Vomiting Muscle Tremors: 2 Anxiety: 3 Agitation: 1-Slight > Activity Paroxysmal Sweats: 2 Orientation: 3-Disoriented Date>2 days (date of the week) Tacttile Disturbances: 0-None Auditory Disturbances: 0-None Visual Disturbances: 0-None Headache: 1-Very Mild CIWA-Ar Total Score: 13 BHS Progress Note (SOAP) Subjective: report doing ok with librium detox regimen less headache bp within acceptable range begin amlodipin 10 mg po daily Objective: 06/09/19 12:05 Vital Signs Temperature 96.6 F L 06/09/19 09:05 Pulse Rate 77 06/09/19 09:05 Respiratory Rate 18 06/09/19 09:05 Blood Pressure 130/86 06/09/19 09:05 O2 Sat by Pulse Oximetry (%) Laboratory Last Values WBC 3.1 K/mm3 (4.0-10.0) L 06/09/19 08:50 RBC 3.87 M/mm3 (4.00-5.60) L 06/09/19 08:50 Hgb 12.4 GM/dL (11.7-16.9) 06/09/19 08:50 Hct 36.0 % (35.4-49) 06/09/19 08:50 MCV 93.1 fl (80-96) 06/09/19 08:50 MCH 31.9 pg (25.7-33.7) 06/09/19 08:50 MCHC 34.3 g/dl (32.0-35.9) 06/09/19 08:50 RDW 14.8 % (11.9-15.9) 06/09/19 08:50 Plt Count 113 K/MM3 (134-434) L 06/09/19 08:50 MPV 10.2 fl (7.5-11.1) 06/09/19 08:50 POC Glucometer 122 UNITS (80-120) 06/09/19 05:56 lab noted Assessment: 06/09/19 12:06 alcohol withdrawal sx Plan: continue librium detox regimen
[2019-06-09] MEDS ORDERED: amLODIPine BESYLATE 10 MG TABLET (FP) PO SCH (12:15)
[2019-06-09 12:36] LABS: BILIRUBIN,TOTAL 0.4 mg/dL (0.2-1); BLOOD UREA NITROGEN 14.3 mg/dL (7-18); CREATININE 0.9 mg/dL (0.55-1.3); POTASSIUM 3.4 mmol/L (3.5-5.1); TOT PROT 6.2 g/dl (6.4-8.2)
[2019-06-09] MEDS: IBUPROFEN 400 MG TABLET (FP) PO PRN ×2 (12:59→22:29)
[2019-06-09] MEDS ORDERED: QUEtiapine FUMARATE 100 MG TABLET (FP) ONE (20:24)
[2019-06-09] MEDS: QUEtiapine FUMARATE 300 MG TABLET PO SCH (22:28)
[2019-06-09] MEDS: ATORVASTATIN CA 80 MG TABLET (FP) PO SCH (22:29)
[2019-06-09] MEDS: hydrOXYzine PAMOATE 25 MG CAPSULE (FP) PO PRN (22:29)
[2019-06-09] MEDS: THIAMINE HCL 100 MG TABLET (FP) PO SCH (22:29)
[2019-06-10] MEDS ORDERED: chlordiazePOXIDE HCL 25 MG CAPSULE PO SCH (05:00)
[2019-06-10] MEDS: IBUPROFEN 400 MG TABLET (FP) PO PRN (05:48)
[2019-06-10] MEDS: metFORMIN HCL 500 MG TABLET (FP) PO SCH (06:03)
[2019-06-10] MEDS: ACETAMINOPHEN 325 MG TABLET (FP) PO PRN (09:23)
[2019-06-10 09:25] VITALS: BP 128/83; PULSE 82; TEMP 96.7
--- NOTE | 2019-06-10 17:40 | DS ---
[facility] Detox Discharge Summary Admission Date: 06/08/19 Discharge Date: 06/10/19 - History Present History: Alcohol Dependence Additional Comments: PATIENT REPROTS THAT HE HAS PERSONAL AFFAIRS TO ATTEND TO AND THAT HE DOES NOT WISH TO REMAIN TO COMPLETE DETOX REGIMEN. RISKS OF LEAVING DETOX UNIT AGAINST MEDICAL ADVICE AND PRIOR TO COMPLETION OF DETOX REGIMEN EXPLAINED TO PATIENT. PATIENT ADVISED TO GO IMMEDIATELY TO NEAREST ER SHOULD ANY INTOLERABLE WITHDRAWAL / DETOX SYMPTOMS DEVELOP AT ANY TIME. PATIENT VERBALIZED UNDERSTANDING OF ALL INFORMATION / RECOMMENDATIONS PRESENTED TO HIM PRIOR TO DEPARTURE FROM DETOX UNIT. PATIENT LEFT DETOX UNIT IN STABLE MEDICAL CONDITION. Pertinent Past History: HTN, Depression, History Of Gout, Hypercholesterolemia, Nicotine dependence, History Of Syncope, Acid Reflux, Schizoaffective Disorder. - Physical Exam Results Vital Signs: Vital Signs Temperature 96.7 F L 06/10/19 09:25 Pulse Rate 82 06/10/19 09:25 Respiratory Rate 20 06/10/19 09:25 Blood Pressure 128/83 06/10/19 09:25 O2 Sat by Pulse Oximetry (%) Pertinent Admission Physical Exam Findings: WITHDRAWAL SYMPTOMS. Laboratory Tests 06/08/19 06/08/19 06/09/19 14:23 16:32 05:56 WBC RBC Hgb Hct MCV MCH MCHC RDW Plt Count MPV Sodium Potassium Chloride Carbon Dioxide Anion Gap BUN Creatinine Est GFR (CKD-EPI)AfAm Est GFR (CKD-EPI)NonAf POC Glucometer 114 147 122 Random Glucose Calcium Total Bilirubin AST ALT Alkaline Phosphatase Total Protein Albumin RPR Titer 06/09/19 06/09/19 06/09/19 08:50 08:50 08:50 WBC 3.1 L RBC 3.87 L Hgb 12.4 Hct 36.0 MCV 93.1 MCH 31.9 MCHC 34.3 RDW 14.8 Plt Count 113 L MPV 10.2 Sodium 143 Potassium 3.4 L Chloride 107 Carbon Dioxide 28 Anion Gap 9 BUN 14.3 Creatinine 0.9 Est GFR (CKD-EPI)AfAm 111.05 Est GFR (CKD-EPI)NonAf 95.81 POC Glucometer Random Glucose 101 Calcium 9.0 Total Bilirubin 0.4 AST 43 H ALT 44 Alkaline Phosphatase 78 Total Protein 6.2 L Albumin 3.0 L RPR Titer Nonreactive 06/09/19 06/10/19 17:01 05:45 WBC RBC Hgb Hct MCV MCH MCHC RDW Plt Count MPV Sodium Potassium Chloride Carbon Dioxide Anion Gap BUN Creatinine Est GFR (CKD-EPI)AfAm Est GFR (CKD-EPI)NonAf POC Glucometer 152 153 Random Glucose Calcium Total Bilirubin AST ALT Alkaline Phosphatase Total Protein Albumin RPR Titer LABS NOTED. - Medication Discharge Medications: Ambulatory Orders Metoprolol Tartrate [Lopressor] 100 mg PO BID 10/04/17 Atorvastatin Ca [Lipitor] 80 mg PO HS #30 tablet 01/24/18 Allopurinol [Zyloprim -] 100 mg PO DAILY 04/25/18 Colchicine [Colcrys] 0.6 mg PO DAILY 04/25/18 Metformin HCl [Glucophage] 500 mg PO BID 04/25/18 Pantoprazole Sodium [Protonix -] 40 mg PO DAILY 04/25/18 Quetiapine Fumarate [Seroquel -] 400 mg PO HS #30 tab 11/04/18 Sertraline HCl [Zoloft] 100 mg PO DAILY #30 tablet 11/04/18 Folic Acid - 1 mg PO DAILY 03/04/19 Thiamine HCl [Vitamin B-1] 100 mg PO DAILY 03/04/19 Hypromellose/Pf [Retaine Hpmc 0.3% Eye Drops] 1 ml OP ASDIR 04/18/19 - Diagnosis (1) Alcohol dependence with uncomplicated withdrawal Status: Acute (2) Syncope Status: Acute Qualifiers: Syncope type: unspecified Qualified Code(s): R55 - Syncope and collapse (3) Gouty arthritis Status: Chronic (4) HTN (hypertension) Status: Chronic Qualifiers: Hypertension type: essential hypertension Qualified Code(s): I10 - Essential (primary) hypertension (5) MDD (major depressive disorder) Status: Chronic Qualifiers: Major depression recurrence: unspecified whether recurrent Active/ Remission status: remission status unspecified Qualified Code(s): F32.9 - Major depressive disorder, single episode, unspecified (6) Schizoaffective disorder Status: Chronic Qualifiers: Schizoaffective disorder type: unspecified Qualified Code(s): F25.9 - Schizoaffective disorder, unspecified (7) Alcohol-induced sleep disorder Status: Acute - AMA Did Patient Leave Against Medical Advice: Yes (PATIENT HAD PERSONAL MATTERS AND DID NOT WISH TO COMPLETE DETOX.) CIWA Score - Admission Criteria OASAS Guidelines: Admission for Medically Managed Detox: Requires at least one of the followin. CIWA greater than 12 2. Seizures within the past 24 hours 3. Delirium tremens within the past 24 hours 4. Hallucinations within the past 24 hours 5. Acute intervention needed for co occurring medical disorder 6. Acute intervention needed for co occurring psychiatric disorder 7. Severe withdrawal that cannot be handled at a lower level of care (continued vomiting, continued diarrhea, abnormal vital signs) requiring intravenous medication and/or fluids 8. BHS CIWA (PN) - Alcohol Withdrawal Assessment Nausea/Vomitin-No Nausea/No Vomiting Muscle Tremor: 3 Anxiety Level: 3 Agitation Degree: 1-Slight > Activity Paroxysmal Sweatin Orientation: 0-Oriented Tactile Disturbance: 2-Mild Itch/Numbness/Burn (Chills.) Auditory Disturbance: 0-None Visual Disturbance: 0-None Headache: 0-None Present Alcohol Withdrawal Total Score: 12
[2019-06-11] MEDS ORDERED: chlordiazePOXIDE HCL 10 MG CAPSULE PO PRN
[2019-06-11] MEDS ORDERED: chlordiazePOXIDE HCL 10 MG CAPSULE PO SCH (05:00)
[2019-06-12] MEDS ORDERED: chlordiazePOXIDE HCL 10 MG CAPSULE PO SCH (05:00)
[2019-06-13] MEDS ORDERED: chlordiazePOXIDE HCL 10 MG CAPSULE PO ONE (05:00)
== END 2019-06-10 11:07 | disposition left against medical advice (07) | DRG 770 ==
LOC: YASAS 09:39 → Y3N 13:52
PROVIDERS: ADMIT Surgery; ATTEND Surgery
PROC: HZ2ZZZZ Detoxification Services for Substance Abuse Treatment (ICD-10-PCS; principal; 2019-06-07)
DX: F10.230 Alcohol dependence with withdrawal, uncomplicated (principal); F10.282 Alcohol dependence with alcohol-induced sleep disorder; F17.210 Nicotine dependence, cigarettes, uncomplicated; F32.9 Major depressive disorder, single episode, unspecified; F25.9 Schizoaffective disorder, unspecified; I10 Essential (primary) hypertension; M10.9 Gout, unspecified; E11.9 Type 2 diabetes mellitus without complications; K21.9 Gastro-esophageal reflux disease without esophagitis; E78.00 Pure hypercholesterolemia, unspecified; Z88.8 Allergy status to other drugs, medicaments and biological substances; Z79.84 Long term (current) use of oral hypoglycemic drugs
CPT/HCPCS: 36415; 80053; 82962; 85027; 86593; J0735

== ENCOUNTER 2019-07-22 08:58 | Inpatient (IN) | payer OTHER ==
[2019-07-22 10:08] VITALS: BMI 36.3
--- NOTE | 2019-07-22 10:46 | HP ---
CIWA Score Nausea/Vomitin-No Nausea/No Vomiting Muscle Tremors: 4-Moderate,w/Arms Extend Anxiety: 2 Agitation: 1-Slight > Activity Paroxysmal Sweats: 2 Orientation: 0-Oriented Tacttile Disturbances: 1-Very Mild Itch/Numbness Auditory Disturbances: 0-None Visual Disturbances: 0-None Headache: 0-None Present CIWA-Ar Total Score: 10 - Admission Criteria OASAS Guidelines: Admission for Medically Managed Detox: Requires at least one of the followin. CIWA greater than 12 2. Seizures within the past 24 hours 3. Delirium tremens within the past 24 hours 4. Hallucinations within the past 24 hours 5. Acute intervention needed for co occurring medical disorder 6. Acute intervention needed for co occurring psychiatric disorder 7. Severe withdrawal that cannot be handled at a lower level of care (continued vomiting, continued diarrhea, abnormal vital signs) requiring intravenous medication and/or fluids 8. Admitting History and Physical - Smoking History Smoking history: Current every day smoker Have you smoked in the past 12 months: Yes Aproximately how many cigarettes per day: 5 - Alcohol/Substance Use Hx Alcohol Use: Yes Admission ROS [facility] Allergies/Adverse Reactions: Allergies Allergy/AdvReac Type Severity Reaction Status Date / Time influenza virus vaccine ts Allergy Severe Swelling Verified 07/22/19 09:51 2012- [From Fluarix] pneumococcal vaccine Allergy Severe Swelling Verified 07/22/19 09:51 [Pneumococcal Vaccine] History of Present Illness: pt here requesting detox from etoh use , reports 16 cans of beer and 1 pint of vodka daily , reports relapse immediately after d/c from this facility, claims tremors if not drinking , latest use yesterday prior to hospital visit @ [facility] . PMHX : hypertension,type 2 dm , gout , insomnia , KRISTIAN , HLD , depression , abdominal hernia , PUD [facility] records received : CMP ( see paper chart ) pertinent abnormals : ALT 64 , AST 72 , lipase 69 , amylase 76, CK 448 , ethanol 344 CBC WNL U bact > 100,000 sens to Cipro EKG QTc 493 ms Exam Limitations: No Limitations - Ebola screening Have you traveled outside of the country in the last 21 days: No Have you had contact with anyone from an Ebola affected area: No Do you have a fever: No - Review of Systems Constitutional: Loss of Appetite EENT: reports: No Symptoms Reported Respiratory: reports: No Symptoms reported Cardiac: reports: No Symptoms Reported GI: reports: Poor Appetite : reports: Burning (2 days ago , denies current symptoms) Musculoskeletal: reports: Joint Pain (chronic bilateral knee pain) Integumentary: reports: No Symptoms Reported Neuro: reports: Tremors Endocrine: reports: See HPI Psychiatric: reports: Orientated x3, Anxious Patient History - Patient Medical History Hx Anemia: No Hx Asthma: No Hx Chronic Obstructive Pulmonary Disease (COPD): No Hx Cancer: No Hx Cardiac Disorders: No Hx Congestive Heart Failure: No Hx Hypertension: Yes (on med) Hx Hypercholesterolemia: Yes (ON MED) Hx Pacemaker: No Hx Seizures: No Hx Dementia: No Hx Diabetes: Yes (NIDDM) Hx Gastrointestinal Disorders: Yes (ACID REFLUX) Hx Liver Disease: No Hx Genitourinary Disorders: No Hx Sexually Transmitted Disorders: No Hx Renal Disease (ESRD): No Hx Thyroid Disease: No Hx Human Immunodeficiency Virus (HIV): No (NEGATIVE HX last 2017 negative) Hx Hepatitis C: No Hx Depression: Yes Hx Suicide Attempt: No Hx Bipolar Disorder: No Hx Schizophrenia: Yes - Patient Surgical History Past Surgical History: No Hx Neurologic Surgery: No Hx Cataract Extraction: No Hx Cardiac Surgery: No Hx Lung Surgery: No Hx Breast Surgery: No Hx Breast Biopsy: No Hx Abdominal Surgery: No Hx Appendectomy: No Hx Cholecystectomy: No Hx Genitourinary Surgery: No Hx Section: No Hx Orthopedic Surgery: No Other Surgical History: has had joint effusions drained in knees Anesthesia Reaction: No - PPD History Date: 11/06/18 Results: 0 mm - Smoking Cessation Smoking history: Current every day smoker Have you smoked in the past 12 months: Yes Aproximately how many cigarettes per day: 5 Cigars Per Day: 0 Hx Chewing Tobacco Use: No Initiated information on smoking cessation: Yes 'Breaking Loose' booklet given: 07/22/19 - Substances abused Alcohol Substance route: Oral Frequency: Daily Amount used: 16 beers (24oz cans), 1pints of cobra Age of first use: 14 Date of last use: 07/21/19 Admission Physical Exam BHS - Vital Signs Vital Signs: Vital Signs - 24 hr 07/22/19 07/22/19 09:42 10:16 Temperature 97.5 F L 97.5 F L Pulse Rate 104 H 104 H Respiratory 20 20 Rate Blood Pressure 180/106 H 180/106 H - Physical General Appearance: Yes: Mild Distress, Anxious HEENTM: Yes: EOMI, Hearing grossly Normal, Normocephalic, Normal Voice Respiratory: Yes: Chest Non-Tender, Lungs Clear, Normal Breath Sounds, No Respiratory Distress, No Accessory Muscle Use Neck: Yes: No masses,lesions,Nodules, Trachea in good position Cardiology: Yes: Regular Rhythm, Regular Rate, S1, S2, Tachycardia Abdominal: Yes: Non Tender, Soft, Protuberent Musculoskeletal: Yes: Gait Steady Extremities: Yes: Non-Tender, Tremors, Other (norah hands deformities 2/2 gout) 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: Fully Oriented, Alert, Motor Strength 5/5, Normal Mood/Affect Integumentary: Yes: Warm - Addiitonal Findings: Bernadette d/c paperwork indicates BW and 12-lead EKG - Diagnostic (1) Alcohol dependence with uncomplicated withdrawal Current Visit: Yes Status: Acute (2) Nicotine dependence Current Visit: Yes Status: Chronic Qualifiers: Nicotine product type: cigarettes Breathalyzer - Breathalyzer Breathalyzer: 0 Urine Drug Screen - Test Device Lot number: [id number] Expiration date: 04/09/21 - Control Is test valid?: Yes - Results Drug screen NEGATIVE: No Urine drug screen results: BZO-Benzodiazepines Inpatient Rehab Admission - Rehab Decision to Admit Inpatient rehab admission?: No
[2019-07-22] MEDS ORDERED: chlordiazePOXIDE HCL 10 MG CAPSULE PO PRN (12:02)
[2019-07-22] MEDS ORDERED: MAG HYDROX/AL HYDROX/SIMETH 30 ML UNIT-DOSE CUP PO PRN (12:02)
[2019-07-22] MEDS ORDERED: MAGNESIUM CITRATE 300 ML BOTTLE PO PRN (12:02)
[2019-07-22] MEDS ORDERED: IBUPROFEN 400 MG TABLET (FP) PO PRN (12:02)
[2019-07-22] MEDS ORDERED: MENTHOL/PHENOL 1 EACH UD MM PRN (12:02)
[2019-07-22] MEDS ORDERED: MAGNESIUM HYDROX 2400MG/30ML ORAL SUSPENSION 30 ML CUP PO PRN (12:02)
[2019-07-22] MEDS ORDERED: ACETAMINOPHEN 325 MG TABLET (FP) PO PRN (12:02)
[2019-07-22] MEDS ORDERED: MELATONIN 5 MG TABLETS PO PRN (12:02)
[2019-07-22] MEDS ORDERED: hydrOXYzine PAMOATE 25 MG CAPSULE (FP) PO PRN (12:02)
[2019-07-22] MEDS ORDERED: BISMUTH SUBSALICYLATE 262 MG/15 ML BTL PO PRN (12:02)
[2019-07-22] MEDS: METOPROLOL TARTRATE 50 MG TABLET (FP) PO SCH ×2 (12:37→21:10)
[2019-07-22] MEDS: INSULIN SLIDING SCALE (NOVOLOG) 1 VIAL SQ SCH ×3 (12:37→21:16)
[2019-07-22] MEDS: chlordiazePOXIDE HCL 25 MG CAPSULE PO SCH ×2 (12:37→22:46)
[2019-07-22] MEDS ORDERED: ARTIFICIAL TEARS (POLYVINYL ALCOHOL) OPTH DROPS OU PRN (14:50)
[2019-07-22] MEDS: metFORMIN HCL 500 MG TABLET (FP) PO SCH (17:08)
[2019-07-22] MEDS ORDERED: amLODIPine BESYLATE 5 MG TABLET (FP) PO ONE (17:30)
[2019-07-22] MEDS: ATORVASTATIN CA 80 MG TABLET (FP) PO SCH (22:45)
[2019-07-22] MEDS: SULFAMETHOXAZOLE/TRIMETHOPRIM 800MG/160MG D.S. TABLET PO SCH (22:46)
[2019-07-22] MEDS: THIAMINE HCL 100 MG TABLET (FP) PO SCH (22:46)
[2019-07-22] MEDS: ACETAMINOPHEN 325 MG TABLET (FP) PO PRN (22:49)
[2019-07-23] MEDS: chlordiazePOXIDE HCL 25 MG CAPSULE PO SCH ×3 (06:01→22:33)
[2019-07-23] MEDS: metFORMIN HCL 500 MG TABLET (FP) PO SCH ×2 (06:51→17:02)
[2019-07-23] MEDS: INSULIN SLIDING SCALE (NOVOLOG) 1 VIAL SQ SCH ×4 (07:33→22:30)
[2019-07-23] MEDS: ALLOPURINOL 100 MG TABLET (FP) PO SCH (09:42)
[2019-07-23] MEDS: PRENATAL VITAMINS W/ FOLIC ACID TABLET (FP) PO SCH (09:42)
[2019-07-23] MEDS: METOPROLOL TARTRATE 50 MG TABLET (FP) PO SCH ×2 (09:42→22:32)
[2019-07-23] MEDS: COLCHICINE 0.6 MG CAP PO SCH (09:42)
[2019-07-23] MEDS: PANTOPRAZOLE 40 MG TABLET (FP) PO SCH (09:42)
[2019-07-23] MEDS: SULFAMETHOXAZOLE/TRIMETHOPRIM 800MG/160MG D.S. TABLET PO SCH ×2 (09:42→22:34)
--- NOTE | 2019-07-23 09:48 | CONSULT ---
[facility] Psychiatric Consult - Data Date of interview: 07/23/19 Admission source: Self-referred Identifying data: Mr Selby is a 54 years old single Black male, unemployed receiving SSI, domiciled seeking detox treatment for alcohol Substance Abuse History: Reports history of alcohol use. Refer to addiction counselor's summary for further information Medical History: Significant for hypertension, dyslipidemia, type 2 diabetes mellitus, GERD, Gout and abdiminal hernia. Smokes 5 cigarettes daily Psychiatric History: Patient is well known to this facility from multiple admissions. Reportedly he is onset of mental illness is at age 17 when he was diagnosed with Schizophrenia. He has had multiple psychiatric hospitalizations at various facilities including [facility], [facility] and [facility]. Reports that he was seeing Dr Lan where he was residing at a [facility] residence in [place] 3 years ago. He told conventional mortgage underwriter that he has been connected to any psychiatrist since he moved. His psychotropic medications( Zoloft 100 mg/day, Seroquel 400 mg/hs) are prescribed by his primary care physician. During most recent admission to this facility, he saw NEDRA Mazariegos on and he was continued on these medications. Patient denies previous suicide attempts. At present, denies experiencing psychotic, manic or depressive symptoms, S/H ideations. However, reports sleeping poorly Physical/Sexual Abuse/Trauma History: Denies history of emotional, physical or sexual abuse as well as DV relationship Additional Comment: Reports history of 5 previous misdemeanor arrests on charges of drinking in public. Denies being on probation Mental Status Exam - Mental Status Exam Alert and Oriented to: Time, Place, Person Cognitive Function: Fair Patient Appearance: Well Groomed Mood: Hopeful, Euthymic Patient Behavior: Cooperative Speech Pattern: Clear Voice Loudness: Normal Thought Process: Intact, Goal Oriented Thought Disorder: Not Present Hallucinations: Denies Suicidal Ideation: Denies Homicidal Ideation: Denies Insight/Judgement: Poor Sleep: Poorly Muscle strength/Tone: Normal Gait/Station: Normal Psychiatric Findings - Problem List (Golden 1, 2,3) (1) Schizoaffective disorder Current Visit: No Status: Chronic Qualifiers: Schizoaffective disorder type: unspecified Qualified Code(s): F25.9 - Schizoaffective disorder, unspecified (2) Alcohol-induced sleep disorder Current Visit: Yes Status: Acute (3) Alcohol dependence with uncomplicated withdrawal Current Visit: Yes Status: Acute (4) Nicotine dependence Current Visit: Yes Status: Chronic (5) HTN (hypertension) Current Visit: No Status: Chronic Qualifiers: Hypertension type: essential hypertension Qualified Code(s): I10 - Essential (primary) hypertension (6) Hyperlipidemia Current Visit: No Status: Chronic Qualifiers: Hyperlipidemia type: unspecified Qualified Code(s): E78.5 - Hyperlipidemia , unspecified (7) DM (diabetes mellitus), type 2 Current Visit: No Status: Chronic Qualifiers: 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 2) Continue inpatient detoxification
--- NOTE | 2019-07-23 11:35 | PN ---
S CIWA - CIWA Score Nausea/Vomitin Muscle Tremors: 2 Anxiety: 2 Agitation: 2 Paroxysmal Sweats: No Perspiration Orientation: 0-Oriented Tacttile Disturbances: 1-Very Mild Itch/Numbness Auditory Disturbances: 0-None Visual Disturbances: 0-None Headache: 2-Mild CIWA-Ar Total Score: 11 BHS Progress Note (SOAP) Subjective: alert,irritable,anxious,interrupted sleep,tremor,painin thebody Objective: 07/23/19 11:33 Vital Signs Temperature 97.6 F 07/23/19 09:34 Pulse Rate 84 07/23/19 09:34 Respiratory Rate 18 07/23/19 09:34 Blood Pressure 145/91 07/23/19 09:34 O2 Sat by Pulse Oximetry (%) Laboratory Last Values POC Glucometer 118 UNITS (80-120) 07/23/19 06:03 RPR Titer Nonreactive (NONREACTIVE) 07/23/19 07:10 labs pending Assessment: 07/23/19 11:33 withdrawal symptom Plan: continue detox librium regimen,bgm monitoring
[2019-07-23] MEDS: SERTRALINE HCL 50 MG TABLET (FP) PO SCH (11:46)
[2019-07-23] MEDS: ATORVASTATIN CA 80 MG TABLET (FP) PO SCH (22:31)
[2019-07-23] MEDS: THIAMINE HCL 100 MG TABLET (FP) PO SCH (22:32)
[2019-07-23] MEDS: QUEtiapine FUMARATE 400 MG TABLET PO SCH (22:33)
[2019-07-24] MEDS: chlordiazePOXIDE 5 MG CAPSULE PO SCH ×3 (06:30→22:44)
[2019-07-24] MEDS: metFORMIN HCL 500 MG TABLET (FP) PO SCH ×2 (07:52→16:54)
[2019-07-24] MEDS: INSULIN SLIDING SCALE (NOVOLOG) 1 VIAL SQ SCH ×4 (07:53→23:09)
[2019-07-24] MEDS: PANTOPRAZOLE 40 MG TABLET (FP) PO SCH (10:28)
[2019-07-24] MEDS: PRENATAL VITAMINS W/ FOLIC ACID TABLET (FP) PO SCH (10:28)
[2019-07-24] MEDS: SERTRALINE HCL 50 MG TABLET (FP) PO SCH (10:28)
[2019-07-24] MEDS: SULFAMETHOXAZOLE/TRIMETHOPRIM 800MG/160MG D.S. TABLET PO SCH ×2 (10:28→22:42)
[2019-07-24] MEDS: ALLOPURINOL 100 MG TABLET (FP) PO SCH (10:29)
[2019-07-24] MEDS: COLCHICINE 0.6 MG CAP PO SCH (10:30)
[2019-07-24] MEDS: ACETAMINOPHEN 325 MG TABLET (FP) PO PRN (10:31)
[2019-07-24] MEDS: METOPROLOL TARTRATE 50 MG TABLET (FP) PO SCH ×2 (11:24→22:41)
--- NOTE | 2019-07-24 11:30 | PN ---
S CIWA - CIWA Score Nausea/Vomitin-No Nausea/No Vomiting Muscle Tremors: 1-None Visible, but [place] Anxiety: 2 Agitation: 2 Paroxysmal Sweats: No Perspiration Orientation: 0-Oriented Tacttile Disturbances: 0-None Auditory Disturbances: 0-None Visual Disturbances: 0-None Headache: 1-Very Mild CIWA-Ar Total Score: 6 BHS Progress Note (SOAP) Subjective: alert,irritable,anxious,interrupted sleep Objective: 07/24/19 11:29 Vital Signs Temperature 97.0 F L 07/24/19 09:48 Pulse Rate 77 07/24/19 09:48 Respiratory Rate 16 07/24/19 09:48 Blood Pressure 125/58 L 07/24/19 09:48 O2 Sat by Pulse Oximetry (%) Assessment: 07/24/19 11:29 withdrawal symptom 07/24/19 11:29 bgm 143 Plan: continue detox librium regimen,bgm monitoring
[2019-07-24] MEDS: THIAMINE HCL 100 MG TABLET (FP) PO SCH (22:40)
[2019-07-24] MEDS: QUEtiapine FUMARATE 400 MG TABLET PO SCH (22:41)
[2019-07-24] MEDS: ATORVASTATIN CA 80 MG TABLET (FP) PO SCH (22:42)
[2019-07-25] MEDS ORDERED: chlordiazePOXIDE HCL 10 MG CAPSULE PO PRN
[2019-07-25] MEDS ORDERED: chlordiazePOXIDE HCL 10 MG CAPSULE PO SCH (05:00)
[2019-07-25] MEDS: ACETAMINOPHEN 325 MG TABLET (FP) PO PRN (05:56)
[2019-07-25] MEDS: INSULIN SLIDING SCALE (NOVOLOG) 1 VIAL SQ SCH ×2 (06:09→12:05)
[2019-07-25] MEDS: metFORMIN HCL 500 MG TABLET (FP) PO SCH (06:09)
[2019-07-25 09:35] VITALS: BP 138/69; PULSE 76; TEMP 98.1
[2019-07-25] MEDS: SULFAMETHOXAZOLE/TRIMETHOPRIM 800MG/160MG D.S. TABLET PO SCH (10:00)
[2019-07-25] MEDS: METOPROLOL TARTRATE 50 MG TABLET (FP) PO SCH (10:00)
[2019-07-25] MEDS: PRENATAL VITAMINS W/ FOLIC ACID TABLET (FP) PO SCH (10:00)
[2019-07-25] MEDS: PANTOPRAZOLE 40 MG TABLET (FP) PO SCH (10:00)
[2019-07-25] MEDS: SERTRALINE HCL 50 MG TABLET (FP) PO SCH (10:00)
[2019-07-25] MEDS: ALLOPURINOL 100 MG TABLET (FP) PO SCH (10:01)
[2019-07-25] MEDS: COLCHICINE 0.6 MG CAP PO SCH (10:01)
--- NOTE | 2019-07-25 12:54 | PN ---
BHS CIWA - CIWA Score Nausea/Vomitin-Mild Nausea/No Vomiting Muscle Tremors: 1-None Visible, but [place] Anxiety: 0-No Anxiety, at Ease Agitation: 0-Normal Activity Paroxysmal Sweats: 2 Orientation: 0-Oriented Tacttile Disturbances: 1-Very Mild Itch/Numbness Auditory Disturbances: 0-None Visual Disturbances: 0-None Headache: 0-None Present CIWA-Ar Total Score: 5 BHS Progress Note (SOAP) Subjective: INTERRUPTED SLEEP, SWEATS Objective: 07/25/19 12:52 Vital Signs Temperature 98.1 F 07/25/19 09:34 Pulse Rate 76 07/25/19 09:34 Respiratory Rate 16 07/25/19 09:34 Blood Pressure 138/69 07/25/19 09:34 O2 Sat by Pulse Oximetry (%) Laboratory Tests 07/22/19 07/22/19 07/22/19 11:36 16:07 21:14 POC Glucometer 109 126 97 RPR Titer 07/23/19 07/23/19 07/23/19 06:03 07:10 11:41 POC Glucometer 118 135 RPR Titer Nonreactive 07/23/19 07/23/19 07/24/19 16:35 21:18 07:50 POC Glucometer 118 108 143 RPR Titer 07/24/19 07/24/19 07/24/19 12:38 16:46 22:43 POC Glucometer 136 102 129 RPR Titer 07/25/19 05:53 POC Glucometer 96 RPR Titer 07/25/19 12:53 PT AOX3 IN NAD AMBULATING Assessment: 07/25/19 12:53 WITHDRAWAL SX Plan: CONT. DETOX INCREASE FLUIDS D/C IN AM
[2019-07-26] MEDS ORDERED: chlordiazePOXIDE HCL 10 MG CAPSULE PO ONE (05:00)
== END 2019-07-25 12:35 | disposition left against medical advice (07) | DRG 770 ==
LOC: YASAS 08:58 → Y6N 12:01
PROVIDERS: ADMIT Allergy & Immunology; ATTEND Allergy & Immunology
PROC: HZ2ZZZZ Detoxification Services for Substance Abuse Treatment (ICD-10-PCS; principal; 2019-07-22)
DX: F10.230 Alcohol dependence with withdrawal, uncomplicated (principal); F17.210 Nicotine dependence, cigarettes, uncomplicated; F10.282 Alcohol dependence with alcohol-induced sleep disorder; F25.9 Schizoaffective disorder, unspecified; F32.9 Major depressive disorder, single episode, unspecified; I10 Essential (primary) hypertension; E78.5 Hyperlipidemia, unspecified; E11.9 Type 2 diabetes mellitus without complications; Z79.84 Long term (current) use of oral hypoglycemic drugs; K21.9 Gastro-esophageal reflux disease without esophagitis; M10.9 Gout, unspecified; E66.9 Obesity, unspecified; Z68.36 Body mass index [BMI] 36.0-36.9, adult; Z88.7 Allergy status to serum and vaccine
CPT/HCPCS: 36415; 82962; 86593

== ENCOUNTER 2019-08-12 09:23 | Inpatient (IN) | payer OTHER ==
[2019-08-12 10:09] VITALS: BMI 35.7
--- NOTE | 2019-08-12 12:20 | HP ---
CIWA Score Nausea/Vomitin-No Nausea/No Vomiting Muscle Tremors: 3 Anxiety: 0-No Anxiety, at Ease Agitation: 0-Normal Activity Paroxysmal Sweats: 2 Orientation: 0-Oriented Tacttile Disturbances: 1-Very Mild Itch/Numbness Auditory Disturbances: 0-None Visual Disturbances: 0-None Headache: 0-None Present CIWA-Ar Total Score: 6 - Admission Criteria OASAS Guidelines: Admission for Medically Managed Detox: Requires at least one of the followin. CIWA greater than 12 2. Seizures within the past 24 hours 3. Delirium tremens within the past 24 hours 4. Hallucinations within the past 24 hours 5. Acute intervention needed for co occurring medical disorder 6. Acute intervention needed for co occurring psychiatric disorder 7. Severe withdrawal that cannot be handled at a lower level of care (continued vomiting, continued diarrhea, abnormal vital signs) requiring intravenous medication and/or fluids 8. Patient presents the following: Acute intervention needed for co-occurring med or psych disorder Admission Criteria Met: Admission criteria met Admitting History and Physical - Admission Chief Complaint: Here for alcohol detox History of Present Illness: Pt is a 54 yo M with PMHx of HTN, DM, HLD, gouty arthritis, PUD, insomnia, sleep apnea, depression, presenting for ETOH detox. Was last here in 07/29 and almost monthly since February 2019, and wants both detox and rehab. Pt was overnight at [facility] after walking there for alcohol. Pt reports being intoxicated at presentation and received librium. Was in withdrawal when he presented to [facility] with Chills and sweats yesterday before he got librium Pt Elevated BP- 182/105, 182/119, last received meds 10pm, UT-101, pt on metoprol (lopressor 100mg bid). No chest pain, no SOB, no blurry vision. Pt reports he has elevated BP and heart rate when withdrawing in past and when he misses metoprolol dose ETOH-BCA Last drink 4pm to 8pm yesterday, 7 beers and 1/2 pint vodka Usu drinks 16 beers and pint of vodka, has been drinking for 40 years, started drinking at 14 years No seizures, blackouts+, last last week, passed out briefly Usually gets the shakes Benzos- in urine Pt reports getting librium in the ED in [facility] Nicotine 5 /cigs per day, wants the patch PSHx: Had Knee drainage up to 10 times b/l for gout Pt uses, lidocaine patch and flexiril for shoulder pain that is not present except he lays down Fhx: Eldest brother and father- alcoholic, father passed, pt did not know him 5 siblings - DM in younger sister, Mother of HTN No children Social hx Lives alone at home Does not work on SSI, for depression Pt has a PCP- Lizbeth Henriquez at [facility] at [facility], He is in a program -[facility], Meet Delio [phone] (Case Manger/Medical Assistant Supervisor) He gets medication from [facility] and [facility] in the building, has been there for 3 years No problem with the law History Source: Patient, Medical Record, Transfer Record - Past Medical History Cardiovascular: Yes: HTN, Hyperlipdemia Psych: Yes: Addictions, Depression Rheumatology: Yes: Gout - Smoking History Smoking history: Current every day smoker Have you smoked in the past 12 months: Yes Aproximately how many cigarettes per day: 4 - Alcohol/Substance Use Hx Alcohol Use: Yes - Social History Usual Living Arrangement: Yes: Alone Do you think of yourself as: Straight/Heterosexual ADL: Independent History of Recent Travel: No Admission ROS [facility] - HPI Allergies/Adverse Reactions: Allergies Allergy/AdvReac Type Severity Reaction Status Date / Time influenza virus vaccine ts Allergy Severe Swelling Verified 08/12/19 09:57 [From Fluarix] pneumococcal vaccine Allergy Severe Swelling Verified 08/12/19 09:57 [Pneumococcal Vaccine] - Ebola screening Have you traveled outside of the country in the last 21 days: No (N) Have you had contact with anyone from an Ebola affected area: No Do you have a fever: No - Review of Systems Constitutional: Chills EENT: reports: Blurred Vision Respiratory: reports: Cough Cardiac: reports: No Symptoms Reported GI: reports: No Symptoms Reported : reports: No Symptoms Reported Musculoskeletal: reports: Gout (With joint deformities worse on R UE (fingers)) Integumentary: reports: No Symptoms Reported Neuro: reports: Tremors Endocrine: reports: No Symptoms Reported Hematology: reports: No Symptoms Reported Psychiatric: reports: No Sypmtoms Reported Patient History - Patient Medical History Hx Anemia: No Hx Asthma: No Hx Chronic Obstructive Pulmonary Disease (COPD): No Hx Cancer: No Hx Cardiac Disorders: No Hx Congestive Heart Failure: No Hx Hypertension: Yes (on med) Hx Hypercholesterolemia: Yes (ON MED) Hx Pacemaker: No Hx Seizures: No Hx Dementia: No Hx Diabetes: Yes (NIDDM) Hx Gastrointestinal Disorders: Yes (ACID REFLUX) Hx Liver Disease: No Hx Genitourinary Disorders: No Hx Sexually Transmitted Disorders: No Hx Renal Disease (ESRD): No Hx Thyroid Disease: No Hx Human Immunodeficiency Virus (HIV): No (NEGATIVE HX last 2017 negative) Hx Hepatitis C: No Hx Depression: Yes Hx Suicide Attempt: No Hx Bipolar Disorder: No Hx Schizophrenia: Yes - Patient Surgical History Past Surgical History: No Hx Neurologic Surgery: No Hx Cataract Extraction: No Hx Cardiac Surgery: No Hx Lung Surgery: No Hx Breast Surgery: No Hx Breast Biopsy: No Hx Abdominal Surgery: No Hx Appendectomy: No Hx Cholecystectomy: No Hx Genitourinary Surgery: No Hx Section: No Hx Orthopedic Surgery: No Other Surgical History: has had joint effusions drained in knees Anesthesia Reaction: No - PPD History Date: 11/06/18 Results: 0 mm - Reproductive History Patient is a Female of Child Bearing Age (11 -55 yrs old): No - Smoking Cessation Smoking history: Current every day smoker Have you smoked in the past 12 months: Yes Aproximately how many cigarettes per day: 5 Cigars Per Day: 0 Hx Chewing Tobacco Use: No Initiated information on smoking cessation: Yes 'Breaking Loose' booklet given: 08/12/19 - Substance & Tx. History Hx Alcohol Use: Yes Hx Substance Use: No Substance Use Type: Alcohol Hx Substance Use Treatment: Yes - Substances abused Alcohol Substance route: Oral Frequency: Daily Amount used: 16 beers (16oz cans), 1pints of vodka Age of first use: 14 Date of last use: 08/11/19 Admission Physical Exam BHS - Vital Signs Vital Signs: Vital Signs - 24 hr 08/12/19 10:01 Temperature 99.1 F Pulse Rate 101 H Respiratory 22 H Rate Blood Pressure 182/119 H - Physical General Appearance: Yes: Obese HEENTM: Yes: EOMI, Other (missing teeth, proptosis) Respiratory: Yes: Chest Non-Tender, Lungs Clear, Normal Breath Sounds Neck: Yes: Within Normal Limits Breast: Yes: Breast Exam Deferred Cardiology: Yes: S1, S2 Abdominal: Yes: Normal Bowel Sounds, Soft Genitourinary: Yes: Within Normal Limits Back: Yes: Within Normal Limits Musculoskeletal: Yes: full range of Motion Extremities: Yes: Other (tinea unguum, hardened nails) 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: Within Normal Limits Integumentary: Yes: Within Normal Limits - Diagnostic (1) Alcohol dependence with uncomplicated withdrawal Current Visit: No Status: Acute Cleared for Admission S - Detox or Rehab [facility] Level of Care: Medically Supervised Breathalyzer - Breathalyzer Breathalyzer: 0 Urine Drug Screen - Test Device Lot number: [id number] Expiration date: 04/09/21 - Control Is test valid?: Yes - Results Drug screen NEGATIVE: No Urine drug screen results: BZO-Benzodiazepines Inpatient Rehab Admission - Rehab Decision to Admit Inpatient rehab admission?: No
[2019-08-12] MEDS ORDERED: hydrOXYzine PAMOATE 25 MG CAPSULE (FP) PO PRN (13:05)
[2019-08-12] MEDS ORDERED: METHOCARBAMOL 500 MG TABLET PO PRN (13:05)
[2019-08-12] MEDS ORDERED: MAGNESIUM HYDROX 2400MG/30ML ORAL SUSPENSION 30 ML CUP PO PRN (13:05)
[2019-08-12] MEDS ORDERED: NICOTINE POLACRILEX 2 MG GUM BUC PRN (13:05)
[2019-08-12] MEDS ORDERED: IBUPROFEN 400 MG TABLET (FP) PO PRN (13:05)
[2019-08-12] MEDS ORDERED: MAGNESIUM CITRATE 300 ML BOTTLE PO PRN (13:05)
[2019-08-12] MEDS ORDERED: MAG HYDROX/AL HYDROX/SIMETH 30 ML UNIT-DOSE CUP PO PRN (13:05)
[2019-08-12] MEDS ORDERED: ACETAMINOPHEN 325 MG TABLET (FP) PO PRN ×2 (13:05)
[2019-08-12] MEDS ORDERED: MENTHOL/PHENOL 1 EACH UD MM PRN (13:05)
[2019-08-12] MEDS ORDERED: BISMUTH SUBSALICYLATE 262 MG/15 ML BTL PO PRN (13:05)
--- NOTE | 2019-08-12 13:19 | PN ---
Teaching Attending Note Name of Resident: Sheba Lima ATTENDING PHYSICIAN STATEMENT I saw and evaluated the patient. I reviewed the resident's note and discussed the case with the resident. I agree with the resident's findings and plan as documented. SUBJECTIVE: pt here requesting detox from etoh use , reports 16-20 cans of beer and 2 pints of vodka daily , reports tremors if not drinking , latest use yesterday prior to hospital visit 2/2 intoxication , given Librium @ [facility] ED PMHX : hypertension,type 2 dm , gout , insomnia , KRISTIAN , HLD , depression , abdominal hernia , PUD OBJECTIVE: wnwd , tremulous CV RRR S1S2 tachycardia Vital Signs - 24 hr 08/12/19 10:01 Temperature 99.1 F Pulse Rate 101 H Respiratory 22 H Rate Blood Pressure 182/119 H ASSESSMENT AND PLAN: AUD - Valium detox
[2019-08-12] MEDS: diazePAM 5 MG TABLET PO SCH ×2 (14:45→22:15)
[2019-08-12] MEDS: COLCHICINE 0.6 MG CAP PO SCH (14:45)
[2019-08-12] MEDS: metFORMIN HCL 500 MG TABLET (FP) PO SCH ×2 (14:45→16:46)
[2019-08-12] MEDS: ALLOPURINOL 100 MG TABLET (FP) PO SCH ×2 (14:47→22:15)
[2019-08-12] MEDS: THIAMINE HCL 100 MG TABLET (FP) PO SCH (22:14)
[2019-08-12] MEDS: ATORVASTATIN CA 80 MG TABLET (FP) PO SCH (22:14)
[2019-08-12] MEDS: MELATONIN 5 MG TABLETS PO PRN (22:15)
[2019-08-13] MEDS: diazePAM 5 MG TABLET PO SCH ×3 (05:41→22:26)
[2019-08-13] MEDS: metFORMIN HCL 500 MG TABLET (FP) PO SCH ×2 (07:46→17:09)
[2019-08-13] MEDS: ALLOPURINOL 100 MG TABLET (FP) PO SCH ×2 (09:57→22:26)
[2019-08-13] MEDS: PRENATAL VITAMINS W/ FOLIC ACID TABLET (FP) PO SCH (09:57)
[2019-08-13] MEDS: NICOTINE 7 MG/24 HOURS TOPICAL PATCH TD SCH (09:58)
[2019-08-13] MEDS: COLCHICINE 0.6 MG CAP PO SCH (09:58)
[2019-08-13] MEDS: diazePAM 5 MG TABLET PO PRN (09:58)
--- NOTE | 2019-08-13 10:31 | PN ---
S CIWA - CIWA Score Nausea/Vomitin-Mild Nausea/No Vomiting Muscle Tremors: 2 Anxiety: 4-Mod. Anxious/Guarded Agitation: 3 Paroxysmal Sweats: 2 Orientation: 0-Oriented Tacttile Disturbances: 1-Very Mild Itch/Numbness Auditory Disturbances: 0-None Visual Disturbances: 0-None Headache: 0-None Present CIWA-Ar Total Score: 13 BHS Progress Note (SOAP) Subjective: 54 years old male admitted on 08/12/19 for alcohol withdrawal sx management treated with valium detox regimen ate breakfast resting on bed feeling tired limited conversation with staff Objective: 08/13/19 10:30 Vital Signs Temperature 98.3 F 08/13/19 09:25 Pulse Rate 89 08/13/19 09:25 Respiratory Rate 20 08/13/19 09:25 Blood Pressure 135/85 08/13/19 09:25 O2 Sat by Pulse Oximetry (%) Laboratory Last Values POC Glucometer 112 UNITS (80-120) 08/13/19 05:42 08/13/19 10:30 lab pending Assessment: 08/13/19 10:31 alcohol withdrawal sx Plan: continue valium detox regimen
[2019-08-13 10:34] LABS: HEMATOCRIT 38.6 % (35.4-49); MCH 31.2 pg (25.7-33.7); MCHC 33.5 g/dl (32.0-35.9); MEAN CELL VOLUME 93.1 fl (80-96); MEAN PLT VOLUME 11.5 fl (7.5-11.1); PLATELET COUNT 140 K/MM3 (134-434); RBC 4.15 M/mm3 (4.00-5.60); RDW 13.7 % (11.9-15.9); WHITE BLOOD COUNT 4.2 K/mm3 (4.0-10.0)
[2019-08-13 10:36] LABS: ALBUMIN 3.2 g/dl (3.4-5.0); BILIRUBIN,TOTAL 0.4 mg/dL (0.2-1); BLOOD UREA NITROGEN 9.7 mg/dL (7-18); CALCIUM 8.8 mg/dL (8.5-10.1); CREATININE 0.9 mg/dL (0.55-1.3); POTASSIUM 3.7 mmol/L (3.5-5.1); TOT PROT 6.3 g/dl (6.4-8.2)
--- NOTE | 2019-08-13 14:51 | CONSULT ---
[facility] Psychiatric Consult - Data Date of interview: 08/13/19 Admission source: [facility] Identifying data: This is one of multiple admissions to [facility] for this 54 y/ o AA male self-referred for detoxification (TD issues : alcohol, nicotine). Interviewed at [address] [place] [address]. Patient is single without dependents, domiciled ([place] setting), unemployed and supported on SSI benefits. Substance Abuse History: Discussed with the patient. Details in current [facility] report as follows : Smoking history: Current every day smoker. Have you smoked in the past 12 months: Yes. Aproximately how many cigarettes per day: 5. Cigars Per Day: 0. Hx Chewing Tobacco Use: No. Initiated information on smoking cessation: Yes. 'Breaking Loose' booklet given: 08/12/19. - Substance & Tx. History. Hx Alcohol Use: Yes. Hx Substance Use: No. Substance Use Type : Alcohol. Hx Substance Use Treatment: Yes. - Substances abused. Alcohol. Substance route: Oral. Frequency: Daily. Amount used: 16 beers (16oz cans), 1pints of vodka. Age of first use: 14. Date of last use: 08/11/19 Medical History: Medical profile is remarkable for obesity, gout, arthritis, GERD, dyslipidemia, diabetes mellitus, hypertension and a history of sleep apnea. Psychiatric History: Onset of psychiatric disturbances : age 17. Patient presents with a history of multiple psychiatric hospitalizations ([facility], [facility], [facility]). Diagnosed with MDD and Schizophrenia. Mr Selby, since his relocation to the [place] (three years ago), has not been under the care of a psychiatrist. Patient is maintained on a regimen of 400 mg/hs + zoloft 100 mg/day (prescribed by his primary care physician, Dr Amos). Patient denies history of suicide attempts. Physical/Sexual Abuse/Trauma History: Patient denies. Additional Comment: Urine drug screen results: BZO-Benzodiazepines. Noted. Mental Status Exam - Mental Status Exam Alert and Oriented to: Time, Place, Person Cognitive Function: Good Patient Appearance: Well Groomed (obese, edentulous) Mood: Withdrawn, Hopeful Affect: Appropriate, Normal Range Patient Behavior: Fatigued, Appropriate, Cooperative Speech Pattern: Clear Voice Loudness: Normal Thought Process: Intact, Goal Oriented Thought Disorder: Not Present Hallucinations: Denies Suicidal Ideation: Denies Homicidal Ideation: Denies Insight/Judgement: Fair Sleep: Poorly, Difficulty falling asleep Appetite: Good Gait/Station: Normal Psychiatric Findings - Problem List ([place] 1, 2,3) (1) Alcohol dependence with uncomplicated withdrawal Status: Acute (2) Nicotine dependence Status: Chronic (3) Substance induced mood disorder Status: Chronic (4) Schizoaffective disorder Status: Chronic Qualifiers: Schizoaffective disorder type: unspecified Qualified Code(s): F25.9 - Schizoaffective disorder, unspecified (5) Insomnia Status: Chronic - Initial Treatment Plan Initial Treatment Plan: Psychoeducation. Sleep hygiene. Detoxification. AA meetings. MAT services are discussed with the patient. Medications resumed as : seroquel 300 mg po hs (reduced) + zoloft 100 mg po daily. Side effects/benefits of both drugs are discussed with the patient. Mr Selby is in agreement with this plan of care. GGave verbal consent to MD. Whitehead.
[2019-08-13] MEDS: THIAMINE HCL 100 MG TABLET (FP) PO SCH (22:26)
[2019-08-13] MEDS: MELATONIN 5 MG TABLETS PO PRN (22:26)
[2019-08-13] MEDS: QUEtiapine FUMARATE 300 MG TABLET PO SCH (22:26)
[2019-08-13] MEDS: ATORVASTATIN CA 80 MG TABLET (FP) PO SCH (22:26)
[2019-08-14] MEDS: diazePAM 5 MG TABLET PO SCH ×2 (06:09→17:49)
[2019-08-14] MEDS: metFORMIN HCL 500 MG TABLET (FP) PO SCH ×2 (06:09→17:49)
[2019-08-14] MEDS: SERTRALINE HCL 50 MG TABLET (FP) PO SCH (10:34)
[2019-08-14] MEDS: ALLOPURINOL 100 MG TABLET (FP) PO SCH ×2 (10:34→22:16)
[2019-08-14] MEDS: PRENATAL VITAMINS W/ FOLIC ACID TABLET (FP) PO SCH (10:34)
[2019-08-14] MEDS: NICOTINE 7 MG/24 HOURS TOPICAL PATCH TD SCH (10:36)
[2019-08-14] MEDS: diazePAM 5 MG TABLET PO PRN (10:36)
--- NOTE | 2019-08-14 11:30 | PN ---
[facility] CIWA - CIWA Score Nausea/Vomitin-No Nausea/No Vomiting Muscle Tremors: 2 Anxiety: 2 Agitation: 2 Paroxysmal Sweats: 1-Minimal Palms Moist Orientation: 0-Oriented Tacttile Disturbances: 0-None Auditory Disturbances: 0-None Visual Disturbances: 0-None Headache: 1-Very Mild CIWA-Ar Total Score: 8 BHS Progress Note (SOAP) Subjective: 54 years old male admitted on 08/12/19 for alcohol withdrawal sx management treated with valium detox regimen patient tolerated well feeling better today less tremor Objective: 08/14/19 11:29 Vital Signs Temperature 97.6 F 08/14/19 09:12 Pulse Rate 75 08/14/19 09:12 Respiratory Rate 18 08/14/19 09:12 Blood Pressure 146/82 08/14/19 09:12 O2 Sat by Pulse Oximetry (%) Laboratory Last Values WBC 4.2 K/mm3 (4.0-10.0) 08/13/19 08:00 RBC 4.15 M/mm3 (4.00-5.60) 08/13/19 08:00 Hgb 13.0 GM/dL (11.7-16.9) 08/13/19 08:00 Hct 38.6 % (35.4-49) 08/13/19 08:00 MCV 93.1 fl (80-96) 08/13/19 08:00 MCH 31.2 pg (25.7-33.7) 08/13/19 08:00 MCHC 33.5 g/dl (32.0-35.9) 08/13/19 08:00 RDW 13.7 % (11.9-15.9) 08/13/19 08:00 Plt Count 140 K/MM3 (134-434) D 08/13/19 08:00 MPV 11.5 fl (7.5-11.1) H D 08/13/19 08:00 Sodium 142 mmol/L (136-145) 08/13/19 08:00 Potassium 3.7 mmol/L (3.5-5.1) 08/13/19 08:00 Chloride 107 mmol/L (98-107) 08/13/19 08:00 Carbon Dioxide 28 mmol/L (21-32) 08/13/19 08:00 Anion Gap 7 MMOL/L (8-16) L 08/13/19 08:00 BUN 9.7 mg/dL (7-18) 08/13/19 08:00 Creatinine 0.9 mg/dL (0.55-1.3) 08/13/19 08:00 Est GFR (CKD-EPI)AfAm 110.27 08/13/19 08:00 Est GFR (CKD-EPI)NonAf 95.14 08/13/19 08:00 POC Glucometer 115 UNITS (80-120) 08/14/19 06:07 Random Glucose 102 mg/dL (74-106) 08/13/19 08:00 Hemoglobin A1c % 6.3 % (4.2-6.3) 08/13/19 10:25 Calcium 8.8 mg/dL (8.5-10.1) 08/13/19 08:00 Total Bilirubin 0.4 mg/dL (0.2-1) 08/13/19 08:00 AST 57 U/L (15-37) H 08/13/19 08:00 ALT 72 U/L (13-61) H 08/13/19 08:00 Alkaline Phosphatase 73 U/L (45-117) 08/13/19 08:00 Total Protein 6.3 g/dl (6.4-8.2) L 08/13/19 08:00 Albumin 3.2 g/dl (3.4-5.0) L 08/13/19 08:00 RPR Titer Nonreactive (NONREACTIVE) 08/13/19 08:00 lab noted 08/14/19 11:33 long history of hypertension metoprolol 25 mg po bid prn for systolic above 140 Assessment: 08/14/19 11:35 alcohol withdrawal sx Plan: valium detox regimen
[2019-08-14] MEDS ORDERED: METOPROLOL TARTRATE 25 MG TABLET (FP) PO PRN (11:32)
[2019-08-14] MEDS: COLCHICINE 0.6 MG CAP PO SCH (12:59)
[2019-08-14] MEDS ORDERED: QUEtiapine FUMARATE 100 MG TABLET (FP) ONE (21:01)
[2019-08-14] MEDS: QUEtiapine FUMARATE 300 MG TABLET PO SCH (22:16)
[2019-08-14] MEDS: ATORVASTATIN CA 80 MG TABLET (FP) PO SCH (22:16)
[2019-08-14] MEDS: THIAMINE HCL 100 MG TABLET (FP) PO SCH (22:16)
[2019-08-15] MEDS ORDERED: diazePAM 5 MG TABLET PO ONE (06:00)
[2019-08-15 06:17] VITALS: BP 140/89; PULSE 79; TEMP 98.4
[2019-08-15] MEDS: metFORMIN HCL 500 MG TABLET (FP) PO SCH (06:41)
--- NOTE | 2019-08-15 09:22 | DS ---
[facility] Detox Discharge Summary Admission Date: 08/12/19 Discharge Date: 08/15/19 - History Present History: Alcohol Dependence Additional Comments: Patient to follow up with primary care provider at [facility] Dr. Lizbeth Cooper. Follow up with outpatint referral to [facility]. Pertinent Past History: DM II GOUT PATIENT AOX3 NO ACUTE DISTRESS EENT WNL , POOR DENTITION NO ADVENTITIOUS BREATH SOUNDS FULL ROM NO GAIT DISTURBANCE - Physical Exam Results Vital Signs: Vital Signs Temperature 98.4 F 08/15/19 06:17 Pulse Rate 79 08/15/19 06:17 Respiratory Rate 18 08/15/19 06:17 Blood Pressure 140/89 08/15/19 06:17 O2 Sat by Pulse Oximetry (%) Pertinent Admission Physical Exam Findings: Vital Signs Temperature 98.4 F 08/15/19 06:17 Pulse Rate 79 08/15/19 06:17 Respiratory Rate 18 08/15/19 06:17 Blood Pressure 140/89 08/15/19 06:17 O2 Sat by Pulse Oximetry (%) Laboratory Last Values WBC 4.2 K/mm3 (4.0-10.0) 08/13/19 08:00 RBC 4.15 M/mm3 (4.00-5.60) 08/13/19 08:00 Hgb 13.0 GM/dL (11.7-16.9) 08/13/19 08:00 Hct 38.6 % (35.4-49) 08/13/19 08:00 MCV 93.1 fl (80-96) 08/13/19 08:00 MCH 31.2 pg (25.7-33.7) 08/13/19 08:00 MCHC 33.5 g/dl (32.0-35.9) 08/13/19 08:00 RDW 13.7 % (11.9-15.9) 08/13/19 08:00 Plt Count 140 K/MM3 (134-434) D 08/13/19 08:00 MPV 11.5 fl (7.5-11.1) H D 08/13/19 08:00 Sodium 142 mmol/L (136-145) 08/13/19 08:00 Potassium 3.7 mmol/L (3.5-5.1) 08/13/19 08:00 Chloride 107 mmol/L (98-107) 08/13/19 08:00 Carbon Dioxide 28 mmol/L (21-32) 08/13/19 08:00 Anion Gap 7 MMOL/L (8-16) L 08/13/19 08:00 BUN 9.7 mg/dL (7-18) 08/13/19 08:00 Creatinine 0.9 mg/dL (0.55-1.3) 08/13/19 08:00 Est GFR (CKD-EPI)AfAm 110.27 08/13/19 08:00 Est GFR (CKD-EPI)NonAf 95.14 08/13/19 08:00 POC Glucometer 114 UNITS (80-120) 08/15/19 05:24 Random Glucose 102 mg/dL (74-106) 08/13/19 08:00 Hemoglobin A1c % 6.3 % (4.2-6.3) 08/13/19 10:25 Calcium 8.8 mg/dL (8.5-10.1) 08/13/19 08:00 Total Bilirubin 0.4 mg/dL (0.2-1) 08/13/19 08:00 AST 57 U/L (15-37) H 08/13/19 08:00 ALT 72 U/L (13-61) H 08/13/19 08:00 Alkaline Phosphatase 73 U/L (45-117) 08/13/19 08:00 Total Protein 6.3 g/dl (6.4-8.2) L 08/13/19 08:00 Albumin 3.2 g/dl (3.4-5.0) L 08/13/19 08:00 RPR Titer Nonreactive (NONREACTIVE) 08/13/19 08:00 - Treatment Hospital Course: Detox Protocol Followed, Detoxed Safely, Responded well, Discharged Condition Good, Rehab Referral Accepted Patient has Accepted a Rehab Referral to: [facility] - Medication Discharge Medications: Ambulatory Orders Allopurinol [Zyloprim -] 100 mg PO BID 04/25/18 Colchicine [Colcrys] 0.6 mg PO DAILY 04/25/18 Metformin HCl [Glucophage] 500 mg PO BID 04/25/18 Quetiapine Fumarate [Seroquel -] 400 mg PO HS #30 tab 11/04/18 Sertraline HCl [Zoloft] 100 mg PO DAILY #30 tablet 11/04/18 Folic Acid - 1 mg PO DAILY 03/04/19 Atorvastatin Ca [Lipitor] 80 mg PO HS 08/12/19 Metoprolol Succinate 100 mg PO DAILY 08/12/19 - AMA Did Patient Leave Against Medical Advice: No
[2019-08-15] MEDS: COLCHICINE 0.6 MG CAP PO SCH (09:47)
[2019-08-15] MEDS: PRENATAL VITAMINS W/ FOLIC ACID TABLET (FP) PO SCH (09:47)
[2019-08-15] MEDS: NICOTINE 7 MG/24 HOURS TOPICAL PATCH TD SCH (09:47)
[2019-08-15] MEDS: ALLOPURINOL 100 MG TABLET (FP) PO SCH (09:48)
[2019-08-15] MEDS: SERTRALINE HCL 50 MG TABLET (FP) PO SCH (09:48)
== END 2019-08-15 09:26 | disposition home or self-care (01) | DRG 775 ==
LOC: YASAS 09:23 → Y3N 13:43
PROVIDERS: ADMIT Allergy & Immunology; ATTEND Allergy & Immunology
PROC: HZ2ZZZZ Detoxification Services for Substance Abuse Treatment (ICD-10-PCS; principal; 2019-08-12)
DX: F10.230 Alcohol dependence with withdrawal, uncomplicated (principal); F17.210 Nicotine dependence, cigarettes, uncomplicated; F19.24 Other psychoactive substance dependence with psychoactive substance-induced mood disorder; F25.9 Schizoaffective disorder, unspecified; F32.9 Major depressive disorder, single episode, unspecified; I10 Essential (primary) hypertension; E78.5 Hyperlipidemia, unspecified; E78.00 Pure hypercholesterolemia, unspecified; E11.9 Type 2 diabetes mellitus without complications; Z79.84 Long term (current) use of oral hypoglycemic drugs; G47.00 Insomnia, unspecified; G47.33 Obstructive sleep apnea (adult) (pediatric); K21.9 Gastro-esophageal reflux disease without esophagitis; M10.9 Gout, unspecified; M12.9 Arthropathy, unspecified; Z87.11 Personal history of peptic ulcer disease; E66.9 Obesity, unspecified; Z68.35 Body mass index [BMI] 35.0-35.9, adult; Z88.7 Allergy status to serum and vaccine
CPT/HCPCS: 36415; 80053; 82962; 83036; 85027; 86593

== ENCOUNTER 2019-09-13 08:42 | Inpatient (IN) | payer OTHER ==
[2019-09-13 09:33] VITALS: BMI 35.9
--- NOTE | 2019-09-13 10:30 | HP ---
CIWA Score Nausea/Vomitin Muscle Tremors: 3 Anxiety: 4-Mod. Anxious/Guarded Agitation: 1-Slight > Activity Paroxysmal Sweats: No Perspiration Orientation: 0-Oriented Tacttile Disturbances: 0-None Auditory Disturbances: 1-Very Mild Visual Disturbances: 1-Very Mild Sensitivity Headache: 2-Mild CIWA-Ar Total Score: 14 - Admission Criteria OASAS Guidelines: Admission for Medically Managed Detox: Requires at least one of the followin. CIWA greater than 12 2. Seizures within the past 24 hours 3. Delirium tremens within the past 24 hours 4. Hallucinations within the past 24 hours 5. Acute intervention needed for co occurring medical disorder 6. Acute intervention needed for co occurring psychiatric disorder 7. Severe withdrawal that cannot be handled at a lower level of care (continued vomiting, continued diarrhea, abnormal vital signs) requiring intravenous medication and/or fluids 8. Patient presents the following: CIWA greater than 12 Admission Criteria Met: Admission criteria met Admitting History and Physical - Admission History Source: Patient, Medical Record Limitations to Obtaining History: No Limitations - Past Medical History Cardiovascular: Yes: HTN, Hyperlipdemia Psych: Yes: Addictions, Depression Rheumatology: Yes: Gout - Smoking History Smoking history: Current every day smoker Have you smoked in the past 12 months: Yes Aproximately how many cigarettes per day: 5 - Alcohol/Substance Use Hx Alcohol Use: Yes - Social History Usual Living Arrangement: Yes: Alone, Other (lives in supportive housing - studio apartment) ADL: Support Services History of Recent Travel: No Admission ROS BHS - HPI Chief Complaint: I'm battling this alcohol problem - it keeps coming up - I need help Allergies/Adverse Reactions: Allergies Allergy/AdvReac Type Severity Reaction Status Date / Time influenza virus vaccine ts Allergy Severe Swelling Verified 09/13/19 09:24 2012- [From Fluarix] pneumococcal vaccine Allergy Severe Swelling Verified 09/13/19 09:24 [Pneumococcal Vaccine] History of Present Illness: 54 yo gentleman here for detox from alcohol - this is one of multiple admissions for detox - last here 08/15/19. No seizures but does have history of black outs. Was evaluated at [facility] ED last night for alcohol intoxication with chest pain - I reviewed the paperwork - urine tox + bzo - patient thinks he was given ativan or librium for the shakes- had EKG and was told it was ok that he had just drank too much alcohol and to go for detox/rehab. Patient no longer has chest pain. He lives alone, is on diability for depression, never suicidal, currently not seeing psych but given meds by primary. He states he was Rx prednisone to take for four days for joint swelling in his hands related to gouty arthritis - I called the pharmacy [facility] [phone] as he could not remember the dose but no person picked up - went to [facility] so unable to confirm the dose. Exam Limitations: No Limitations - Ebola screening Have you traveled outside of the country in the last 21 days: No Have you had contact with anyone from an Ebola affected area: No Do you have a fever: No - Review of Systems Constitutional: Chills, Loss of Appetite, Malaise, Changes in sleep EENT: reports: Blurred Vision Respiratory: reports: No Symptoms reported Cardiac: reports: No Symptoms Reported GI: reports: Nausea, Poor Fluid Intake, Indigestion, Abdominal cramping : reports: Frequency Musculoskeletal: reports: Gout, Joint Pain, Joint Swelling, Muscle Pain Integumentary: reports: Dryness Neuro: reports: Headache, Tremors Endocrine: reports: No Symptoms Reported Hematology: reports: No Symptoms Reported Psychiatric: reports: Judgement Intact, Mood/Affect Appropiate, Orientated x3, Anxious Other Systems: Reviewed and Negative Patient History - Patient Medical History Hx Anemia: No Hx Asthma: No Hx Chronic Obstructive Pulmonary Disease (COPD): No Hx Cancer: No Hx Cardiac Disorders: No Hx Congestive Heart Failure: No Hx Hypertension: Yes (on med) Hx Hypercholesterolemia: Yes (ON MED) Hx Pacemaker: No Hx Seizures: No Hx Dementia: No Hx Diabetes: Yes (NIDDM) Hx Gastrointestinal Disorders: Yes (ACID REFLUX) Hx Liver Disease: Yes (elevated LFTs due to alcohol) Hx Genitourinary Disorders: No Hx Sexually Transmitted Disorders: No Hx Renal Disease (ESRD): No Hx Thyroid Disease: No Hx Human Immunodeficiency Virus (HIV): No (NEGATIVE HX last 2016 negative) Hx Hepatitis C: No Hx Depression: Yes (on meds, history of hospitalization 2005) Hx Suicide Attempt: No (denies) Hx Bipolar Disorder: No Hx Schizophrenia: Yes ('it was mentioned to me once') - Patient Surgical History Past Surgical History: No Hx Neurologic Surgery: No Hx Cataract Extraction: No Hx Cardiac Surgery: No Hx Lung Surgery: No Hx Breast Surgery: No Hx Breast Biopsy: No Hx Abdominal Surgery: No Hx Appendectomy: No Hx Cholecystectomy: No Hx Genitourinary Surgery: No Hx Section: No Hx Orthopedic Surgery: No Other Surgical History: has had joint effusions drained in knees Anesthesia Reaction: No - PPD History Previous Implant?: Yes Documented Results: Negative w/proof Implanted On Prior [facility] Admission?: Yes Date: 11/06/18 Results: 0 mm PPD to be Administered?: No - Reproductive History Patient is a Female of Child Bearing Age (11 -55 yrs old): No - Smoking Cessation Smoking history: Current every day smoker Have you smoked in the past 12 months: Yes Aproximately how many cigarettes per day: 5 Cigars Per Day: 0 Hx Chewing Tobacco Use: No Initiated information on smoking cessation: Yes 'Breaking Loose' booklet given: 09/13/19 (give on floor) - Substance & Tx. History Hx Alcohol Use: Yes Hx Substance Use: No Substance Use Type: Alcohol Hx Substance Use Treatment: Yes (detox, rehab, hx vivitrol) - Substances abused Alcohol Substance route: Oral Frequency: Daily Amount used: 16 beers (16oz cans), 1pints of vodka Age of first use: 14 Date of last use: 08/12/19 Admission Physical Exam BHS - Vital Signs Vital Signs: Vital Signs - 24 hr 09/13/19 09:30 Temperature 98.1 F Pulse Rate 98 H Respiratory 18 Rate Blood Pressure 170/90 - Physical General Appearance: Yes: Nourished, Appropriately Dressed, Moderate Distress, Obese, Tremorous, Anxious HEENTM: Yes: EOMI, Hearing grossly Normal, Normocephalic, Normal Voice, Pharynx Normal, Other (poor dentition, missing teeth) Respiratory: Yes: Normal Breath Sounds, No Respiratory Distress Neck: Yes: No masses,lesions,Nodules, Supple Breast: Yes: Breast Exam Deferred Cardiology: Yes: Regular Rhythm, Regular Rate Abdominal: Yes: Soft, Protuberent Genitourinary: Yes: Frequency Back: Yes: Normal Inspection Musculoskeletal: Yes: Gait Steady, Joint Stiffness, Joint swelling Extremities: Yes: Tremors, Other (deformity of some fingers - stiffness and swelling in hands (chronic)) 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: Fully Oriented, Alert, Normal Mood/Affect, Normal Response, Numbness Integumentary: Yes: Normal Color, Dry, Warm Lymphatic: Yes: Within Normal Limits - Diagnostic (1) Alcohol dependence with uncomplicated withdrawal Current Visit: Yes Status: Chronic (2) DM (diabetes mellitus), type 2 Current Visit: Yes Status: Chronic Qualifiers: Diabetes mellitus alf insulin use: 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 Diabetes mellitus complication status: with other specified complication Qualified Code (s): E11.69 - Type 2 diabetes mellitus with other specified complication (3) GERD (gastroesophageal reflux disease) Current Visit: Yes Status: Chronic Qualifiers: Esophagitis presence: without esophagitis Qualified Code(s): K21.9 - Gastro -esophageal reflux disease without esophagitis (4) Gouty arthritis Current Visit: Yes Status: Chronic (5) HTN (hypertension) Current Visit: Yes Status: Chronic Qualifiers: Hypertension type: essential hypertension Qualified Code(s): I10 - Essential (primary) hypertension (6) History of sleep apnea Current Visit: Yes Status: Chronic (7) Hyperlipidemia Current Visit: Yes Status: Chronic Qualifiers: Hyperlipidemia type: unspecified Qualified Code(s): E78.5 - Hyperlipidemia , unspecified (8) Morbid obesity Current Visit: Yes Status: Chronic (9) Nicotine dependence Current Visit: Yes Status: Chronic Qualifiers: Nicotine product type: cigarettes Substance use status: uncomplicated Qualified Code(s): F17.210 - Nicotine dependence, cigarettes, uncomplicated Cleared for Admission S - Detox or Rehab [facility] Level of Care: Medically Managed Detox Regimen/Protocol: Librium Breathalyzer - Breathalyzer Breathalyzer: 0 Urine Drug Screen - Test Device Lot number: [id number] Expiration date: 06/09/21 - Control Is test valid?: Yes - Results Drug screen NEGATIVE: No Urine drug screen results: BZO-Benzodiazepines Inpatient Rehab Admission - Rehab Decision to Admit Inpatient rehab admission?: No
[2019-09-13] MEDS ORDERED: chlordiazePOXIDE HCL 25 MG CAPSULE PO PRN (10:51)
[2019-09-13] MEDS ORDERED: MENTHOL/PHENOL 1 EACH UD MM PRN (10:51)
[2019-09-13] MEDS ORDERED: hydrOXYzine PAMOATE 25 MG CAPSULE (FP) PO PRN (10:51)
[2019-09-13] MEDS ORDERED: MAGNESIUM CITRATE 300 ML BOTTLE PO PRN (10:51)
[2019-09-13] MEDS ORDERED: MAG HYDROX/AL HYDROX/SIMETH 30 ML UNIT-DOSE CUP PO PRN (10:51)
[2019-09-13] MEDS ORDERED: MAGNESIUM HYDROX 2400MG/30ML ORAL SUSPENSION 30 ML CUP PO PRN (10:51)
[2019-09-13] MEDS ORDERED: METHOCARBAMOL 500 MG TABLET PO PRN (10:51)
[2019-09-13] MEDS ORDERED: BISMUTH SUBSALICYLATE 524 MG/30 ML UD PO PRN (10:51)
[2019-09-13] MEDS ORDERED: ACETAMINOPHEN 325 MG TABLET (FP) PO PRN (10:51)
[2019-09-13] MEDS ORDERED: chlordiazePOXIDE HCL 25 MG CAPSULE PO ONE (10:51)
[2019-09-13] MEDS ORDERED: MELATONIN 5 MG TABLETS PO PRN (10:51)
[2019-09-13] MEDS ORDERED: ARTIFICIAL TEARS (POLYVINYL ALCOHOL) OPTH DROPS OU PRN (10:53)
[2019-09-13] MEDS ORDERED: PATIENT'S OWN MEDICATION (NON-FORMULARY) (Sertraline Hcl [Zoloft] 100 MG) PO ONE (11:00)
[2019-09-13] MEDS: ALLOPURINOL 100 MG TABLET (FP) PO SCH ×2 (12:05→22:53)
[2019-09-13] MEDS: NICOTINE 21 MG/24 HOURS TOPICAL PATCH TD SCH (12:05)
[2019-09-13] MEDS: metFORMIN HCL 500 MG TABLET (FP) PO SCH ×2 (12:05→22:58)
[2019-09-13] MEDS: COLCHICINE 0.6 MG CAP PO SCH (12:06)
[2019-09-13] MEDS: FOLIC ACID 1 MG TABLET (FP) PO SCH (14:41)
[2019-09-13] MEDS: LANOLIN (EMOLL) 30 GM TUBE TP SCH (14:41)
[2019-09-13] MEDS: chlordiazePOXIDE HCL 25 MG CAPSULE PO SCH ×2 (16:49→22:53)
[2019-09-13] MEDS ORDERED: QUEtiapine FUMARATE 400 MG TABLET PO ONE (22:00)
[2019-09-13] MEDS: THIAMINE HCL 100 MG TABLET (FP) PO SCH (22:53)
[2019-09-13] MEDS: ATORVASTATIN CA 80 MG TABLET (FP) PO SCH (22:53)
[2019-09-14] MEDS: metFORMIN HCL 500 MG TABLET (FP) PO SCH ×2 (07:07→17:45)
[2019-09-14] MEDS: chlordiazePOXIDE HCL 25 MG CAPSULE PO SCH ×4 (07:08→22:46)
[2019-09-14] MEDS: FOLIC ACID 1 MG TABLET (FP) PO SCH (11:00)
[2019-09-14] MEDS: LANOLIN (EMOLL) 30 GM TUBE TP SCH (11:00)
[2019-09-14] MEDS: PRENATAL VITAMINS W/ FOLIC ACID TABLET (FP) PO SCH (11:00)
[2019-09-14] MEDS: NICOTINE 21 MG/24 HOURS TOPICAL PATCH TD SCH (11:01)
[2019-09-14] MEDS: COLCHICINE 0.6 MG CAP PO SCH (11:01)
[2019-09-14] MEDS: ALLOPURINOL 100 MG TABLET (FP) PO SCH ×2 (11:04→22:45)
--- NOTE | 2019-09-14 11:07 | CONSULT ---
[facility] Psychiatric Consult - Data Date of interview: 09/14/19 Admission source: [facility] Identifying data: Patient is a 54 year old single male, without children, unemployed, domiciled (resides in an O), and is supported by [facility]. This is one of multiple admissions for patient. Patient admitted to for alcohol dependence. Substance Abuse History: Smoking Cessation. Smoking history: Current every day smoker. Have you smoked in the past 12 months: Yes. Aproximately how many cigarettes per day: 5. Cigars Per Day: 0. Hx Chewing Tobacco Use: No. Initiated information on smoking cessation: Yes. 'Breaking Loose' booklet given : 09/13/19 (give on floor). - Substance & Tx. History. Hx Alcohol Use: Yes. Hx Substance Use: No. Substance Use Type: Alcohol. Hx Substance Use Treatment : Yes (detox, rehab, hx vivitrol). - Substances abused. Alcohol. Substance route: Oral. Frequency: Daily. Amount used: 16 beers (16oz cans), 1pints of vodka. Age of first use: 14. Date of last use: 08/12/19 Medical History: Medical profile is remarkable for obesity, gout, arthritis, GERD, dyslipidemia, diabetes mellitus, hypertension and a history of sleep apnea. Psychiatric History: Patient's first psychiatric contact was at 17 years of age after onset of disturbances of auditory hallucinations. He was admitted to a psychiatric facilty (unable to remember) and prescribed psychotropic medications. Througout the years Mr. Selby reports multiple hospitalizations at various institutions [facility], [facility], and [facility]. Diagnoses of MDD and Schizophrenia. Mr. Selby last saw an outpatient psychiatrist three years ago while living in a transitional housing residence. He now receives his refills of zoloft 100mg + Seroquel 400mg from his PCP or from detox/rehab facilities. Mr. Beckett last took his medications approximately two weeks ago. He denies history of suicide attempt. At present he denies auditory/visual hallucinations. Physical/Sexual Abuse/Trauma History: denies. Mental Status Exam - Mental Status Exam Alert and Oriented to: Time, Place, Person Cognitive Function: Good Patient Appearance: Well Groomed Mood: Withdrawn Affect: Mood Congruent Patient Behavior: Fatigued, Cooperative Speech Pattern: Clear Voice Loudness: Mildly Soft/Quiet Thought Process: Intact, Goal Oriented Thought Disorder: Not Present Hallucinations: Denies Suicidal Ideation: Denies Homicidal Ideation: Denies Insight/Judgement: Poor Sleep: Fair Appetite: Fair Muscle strength/Tone: Normal Gait/Station: Normal Psychiatric Findings - Problem List ([place] 1, 2,3) (1) Alcohol dependence with uncomplicated withdrawal Status: Acute (2) Schizoaffective disorder Status: Chronic Qualifiers: Schizoaffective disorder type: unspecified Qualified Code(s): F25.9 - Schizoaffective disorder, unspecified (3) Alcohol dependence Status: Acute (4) Nicotine dependence Status: Acute Qualifiers: Nicotine product type: cigarettes Substance use status: in withdrawal Qualified Code(s): F17.213 - Nicotine dependence, cigarettes, with withdrawal - Initial Treatment Plan Initial Treatment Plan: Psychoeducation provided. Detoxification in progress. 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 Patient c/o feeling fatigue and states he nearly had a fall yesterday. Will order Seroquel 300mg HS. Will continue Zoloft 100mg daily.
[2019-09-14 13:38] LABS: HEMATOCRIT 37.1 % (35.4-49); HEMOGLOBIN 12.4 GM/dL (11.7-16.9); MCH 31.1 pg (25.7-33.7); MCHC 33.4 g/dl (32.0-35.9); MEAN CELL VOLUME 93.1 fl (80-96); MEAN PLT VOLUME 11.4 fl (7.5-11.1); PLATELET COUNT 119 K/MM3 (134-434); RBC 3.98 M/mm3 (4.00-5.60); RDW 14.6 % (11.9-15.9); WHITE BLOOD COUNT 3.1 K/mm3 (4.0-10.0)
--- NOTE | 2019-09-14 13:57 | DS ---
[facility] Detox Discharge Summary Admission Date: 09/13/19 Discharge Date: 09/14/19 - History Present History: Alcohol Dependence Additional Comments: 54 years old male admitted on 09/13/19 for alcohol withdrawal sx management treated with ativan detox regimen patient insists to leave the detox unit that voluntary chemical dependent treatment admission patient is alert oriented x 3 ambulating steady gait speech clearly coherently patient refuses to engage conversation further with the journalists and other writers - Physical Exam Results Vital Signs: Vital Signs Temperature 97.2 F L 09/14/19 09:02 Pulse Rate 91 H 09/14/19 09:02 Respiratory Rate 16 09/14/19 09:02 Blood Pressure 138/92 09/14/19 09:02 O2 Sat by Pulse Oximetry (%) Pertinent Admission Physical Exam Findings: alcohol withdrawal Laboratory Last Values WBC 3.1 K/mm3 (4.0-10.0) L 09/14/19 07:30 RBC 3.98 M/mm3 (4.00-5.60) L 09/14/19 07:30 Hgb 12.4 GM/dL (11.7-16.9) 09/14/19 07:30 Hct 37.1 % (35.4-49) 09/14/19 07:30 MCV 93.1 fl (80-96) 09/14/19 07:30 MCH 31.1 pg (25.7-33.7) 09/14/19 07:30 MCHC 33.4 g/dl (32.0-35.9) 09/14/19 07:30 RDW 14.6 % (11.9-15.9) 09/14/19 07:30 Plt Count 119 K/MM3 (134-434) L 09/14/19 07:30 MPV 11.4 fl (7.5-11.1) H 09/14/19 07:30 POC Glucometer 109 UNITS (80-120) 09/14/19 07:06 lab noted - Treatment Hospital Course: Detox Protocol Followed Patient has Accepted a Rehab Referral to: community support approach - Medication Discharge Medications: Ambulatory Orders Allopurinol [Zyloprim -] 100 mg PO BID 04/25/18 Colchicine [Colcrys] 0.6 mg PO DAILY 04/25/18 Metformin HCl [Glucophage] 500 mg PO BID 04/25/18 Quetiapine Fumarate [Seroquel -] 400 mg PO HS #30 tab 11/04/18 Sertraline HCl [Zoloft] 100 mg PO DAILY #30 tablet 11/04/18 Folic Acid - 1 mg PO DAILY 03/04/19 Atorvastatin Ca [Lipitor] 80 mg PO HS 08/12/19 Metoprolol Succinate 100 mg PO DAILY 08/12/19 Polyvinyl Alcohol [Artificial Tears] 1 drop OU TID PRN 09/13/19 Vits A and D/White Pet/Lanolin [A and D Ointment] 42.5 gm TP DAILY 09/13/19 - Diagnosis (1) Alcohol dependence with uncomplicated withdrawal Current Visit: Yes Status: Acute (2) DM (diabetes mellitus), type 2 Current Visit: Yes Status: Chronic Qualifiers: Diabetes mellitus lime puller insulin use: without lime puller use Diabetes mellitus complication status: with other specified complication Qualified Code (s): E11.69 - Type 2 diabetes mellitus with other specified complication (3) GERD (gastroesophageal reflux disease) Current Visit: Yes Status: Chronic Qualifiers: Esophagitis presence: without esophagitis Qualified Code(s): K21.9 - Gastro -esophageal reflux disease without esophagitis (4) Gouty arthritis Current Visit: Yes Status: Chronic (5) HTN (hypertension) Current Visit: Yes Status: Chronic Qualifiers: Hypertension type: essential hypertension Qualified Code(s): I10 - Essential (primary) hypertension (6) Hyperlipidemia Current Visit: Yes Status: Chronic Qualifiers: Hyperlipidemia type: unspecified Qualified Code(s): E78.5 - Hyperlipidemia , unspecified (7) Morbid obesity Current Visit: Yes Status: Chronic (8) Nicotine dependence Current Visit: Yes Status: Acute Qualifiers: Nicotine product type: cigarettes Substance use status: in withdrawal Qualified Code(s): F17.213 - Nicotine dependence, cigarettes, with withdrawal (9) Substance induced mood disorder Current Visit: Yes Status: Suspected - AMA Did Patient Leave Against Medical Advice: Yes
[2019-09-14 14:01] LABS: BILIRUBIN,TOTAL 0.5 mg/dL (0.2-1); BLOOD UREA NITROGEN 10.9 mg/dL (7-18); CALCIUM 8.2 mg/dL (8.5-10.1); POTASSIUM 3.3 mmol/L (3.5-5.1); TOT PROT 5.9 g/dl (6.4-8.2)
[2019-09-14] MEDS: SERTRALINE HCL 50 MG TABLET (FP) PO SCH (14:38)
--- NOTE | 2019-09-14 17:08 | PN ---
S CIWA - CIWA Score Nausea/Vomitin-Mild Nausea/No Vomiting Muscle Tremors: 3 Anxiety: 3 Agitation: 2 Paroxysmal Sweats: 3 Orientation: 0-Oriented Tacttile Disturbances: 0-None Auditory Disturbances: 0-None Visual Disturbances: 0-None Headache: 0-None Present CIWA-Ar Total Score: 12 BHS Progress Note (SOAP) Subjective: Patient asleep but aroused easily, refused to speak with screen writer. Objective: 09/14/19 17:05 Last Vital Signs Temp Pulse Resp BP Pulse Ox 97.1 F L 82 16 156/84 09/14/19 14:09 09/14/19 14:09 09/14/19 14:09 09/14/19 14:09 Elevated b/p: has htn, on medication Laboratory Tests 09/13/19 09/13/19 09/13/19 10:52 16:28 22:54 WBC RBC Hgb Hct MCV MCH MCHC RDW Plt Count MPV Sodium Potassium Chloride Carbon Dioxide Anion Gap BUN Creatinine Est GFR (CKD-EPI)AfAm Est GFR (CKD-EPI)NonAf POC Glucometer 110 93 112 Random Glucose Calcium Total Bilirubin AST ALT Alkaline Phosphatase Total Protein Albumin RPR Titer 09/14/19 09/14/19 09/14/19 07:06 07:30 07:30 WBC 3.1 L RBC 3.98 L Hgb 12.4 Hct 37.1 MCV 93.1 MCH 31.1 MCHC 33.4 RDW 14.6 Plt Count 119 L MPV 11.4 H Sodium 143 Potassium 3.3 L Chloride 109 H Carbon Dioxide 27 Anion Gap 7 L BUN 10.9 Creatinine 1.0 Est GFR (CKD-EPI)AfAm 97.08 Est GFR (CKD-EPI)NonAf 83.76 POC Glucometer 109 Random Glucose 105 Calcium 8.2 L Total Bilirubin 0.5 AST 58 H ALT 57 Alkaline Phosphatase 56 Total Protein 5.9 L Albumin 3.0 L RPR Titer 09/14/19 09/14/19 07:30 16:31 WBC RBC Hgb Hct MCV MCH MCHC RDW Plt Count MPV Sodium Potassium Chloride Carbon Dioxide Anion Gap BUN Creatinine Est GFR (CKD-EPI)AfAm Est GFR (CKD-EPI)NonAf POC Glucometer 124 Random Glucose Calcium Total Bilirubin AST ALT Alkaline Phosphatase Total Protein Albumin RPR Titer Nonreactive Labs reviewed: K 3.3 (low), Ca 8.2 (low), AST 58 (elevated), POC glucose 124 ( high Assessment: 09/14/19 17:09 Withdrawal sxs Noted with hypokalemia, hypocalcemia, transaminitis and hyperglycemia Plan: Continue detox Encouraged PO water intake Hypokalemia: give K Dur 40 Meq PO x 1 dose, repeat serum K level in AM Hypocalcemia: start calcium carbonate 650mg PO bid x 3 days Transaminitis: most likely due to alcoholism, encouraged abstinence Hyperglycemia: due to DMT2, continue metformin HTN: continue metoprolol, monitor b/p
--- NOTE | 2019-09-14 17:09 | EKG ---
Test Reason : Blood Pressure : / mmHG Vent. Rate : 090 BPM Atrial Rate : 090 BPM P-R Int : 152 ms QRS Dur : 068 ms QT Int : 328 ms P-R-T Axes : 044 012 023 degrees QTc Int : 401 ms NORMAL SINUS RHYTHM NONSPECIFIC ST ABNORMALITY ABNORMAL ECG WHEN COMPARED WITH ECG OF 21-JUL-2018 19:42, NO SIGNIFICANT CHANGE WAS FOUND Confirmed by RADHA SPARKS MD ([id number]) on 09/14/2019 5:09:02 PM Referred By: Confirmed By:RADHA SPARKS MD
[2019-09-14] MEDS ORDERED: POTASSIUM CHLORIDE TABS 20 MEQ TABLET.ER (FP) PO ONE (17:13)
[2019-09-14] MEDS ORDERED: QUEtiapine FUMARATE 300 MG TABLET PO SCH (22:00)
[2019-09-14] MEDS: ATORVASTATIN CA 80 MG TABLET (FP) PO SCH (22:45)
[2019-09-14] MEDS: THIAMINE HCL 100 MG TABLET (FP) PO SCH (22:45)
[2019-09-14] MEDS: CALCIUM CARBONATE 650 MG TABLET PO SCH (22:45)
[2019-09-15] MEDS: chlordiazePOXIDE HCL 25 MG CAPSULE PO SCH ×2 (06:10→10:10)
[2019-09-15] MEDS: metFORMIN HCL 500 MG TABLET (FP) PO SCH (06:11)
[2019-09-15 09:24] VITALS: BP 145/96; PULSE 89; TEMP 97.2
[2019-09-15] MEDS: FOLIC ACID 1 MG TABLET (FP) PO SCH (10:09)
[2019-09-15] MEDS: CALCIUM CARBONATE 650 MG TABLET PO SCH (10:09)
[2019-09-15] MEDS: NICOTINE 21 MG/24 HOURS TOPICAL PATCH TD SCH (10:09)
[2019-09-15] MEDS: SERTRALINE HCL 50 MG TABLET (FP) PO SCH (10:09)
[2019-09-15] MEDS: COLCHICINE 0.6 MG CAP PO SCH (10:09)
[2019-09-15] MEDS: PRENATAL VITAMINS W/ FOLIC ACID TABLET (FP) PO SCH (10:09)
[2019-09-15] MEDS: ALLOPURINOL 100 MG TABLET (FP) PO SCH (10:09)
--- NOTE | 2019-09-15 12:01 | PN ---
[facility] CIWA - CIWA Score Nausea/Vomitin-Mild Nausea/No Vomiting Muscle Tremors: 2 Anxiety: 2 Agitation: 2 Paroxysmal Sweats: No Perspiration Orientation: 0-Oriented Tacttile Disturbances: 1-Very Mild Itch/Numbness Auditory Disturbances: 0-None Visual Disturbances: 0-None Headache: 2-Mild CIWA-Ar Total Score: 10 S Progress Note (SOAP) Subjective: alert,irritable,anxious,interrupted sleep,pain in the body,nausea Objective: 09/15/19 11:58 Vital Signs Temperature 97.2 F L 09/15/19 09:24 Pulse Rate 89 09/15/19 09:24 Respiratory Rate 18 09/15/19 09:24 Blood Pressure 145/96 09/15/19 09:24 O2 Sat by Pulse Oximetry (%) Laboratory Last Values WBC 3.1 K/mm3 (4.0-10.0) L 09/14/19 07:30 RBC 3.98 M/mm3 (4.00-5.60) L 09/14/19 07:30 Hgb 12.4 GM/dL (11.7-16.9) 09/14/19 07:30 Hct 37.1 % (35.4-49) 09/14/19 07:30 MCV 93.1 fl (80-96) 09/14/19 07:30 MCH 31.1 pg (25.7-33.7) 09/14/19 07:30 MCHC 33.4 g/dl (32.0-35.9) 09/14/19 07:30 RDW 14.6 % (11.9-15.9) 09/14/19 07:30 Plt Count 119 K/MM3 (134-434) L 09/14/19 07:30 MPV 11.4 fl (7.5-11.1) H 09/14/19 07:30 Sodium 143 mmol/L (136-145) 09/14/19 07:30 Potassium 4.0 mmol/L (3.5-5.1) 09/15/19 08:20 Chloride 109 mmol/L (98-107) H 09/14/19 07:30 Carbon Dioxide 27 mmol/L (21-32) 09/14/19 07:30 Anion Gap 7 MMOL/L (8-16) L 09/14/19 07:30 BUN 10.9 mg/dL (7-18) 09/14/19 07:30 Creatinine 1.0 mg/dL (0.55-1.3) 09/14/19 07:30 Est GFR (CKD-EPI)AfAm 97.08 09/14/19 07:30 Est GFR (CKD-EPI)NonAf 83.76 09/14/19 07:30 POC Glucometer 101 UNITS (80-120) 09/15/19 06:09 Random Glucose 105 mg/dL (74-106) 09/14/19 07:30 Calcium 8.2 mg/dL (8.5-10.1) L 09/14/19 07:30 Total Bilirubin 0.5 mg/dL (0.2-1) 09/14/19 07:30 AST 58 U/L (15-37) H 09/14/19 07:30 ALT 57 U/L (13-61) 09/14/19 07:30 Alkaline Phosphatase 56 U/L (45-117) 09/14/19 07:30 Total Protein 5.9 g/dl (6.4-8.2) L 09/14/19 07:30 Albumin 3.0 g/dl (3.4-5.0) L 09/14/19 07:30 RPR Titer Nonreactive (NONREACTIVE) 09/14/19 07:30 09/15/19 11:59 repeat k is 4 Assessment: 09/15/19 12:00 withdrawal symptom Plan: continue detox librium regimen,bgm monitoring
--- NOTE | 2019-09-15 12:59 | PN ---
[facility] Progress Note Note: patient does not want to complete treatment,all attempts to convince patient to stay with no avail,stated he is feeling much better and would like to go home for personal issue, patient left ama,high risk of relapsing explained,patient understood,left the unit in good and stable condition,has all medications at home, advise to see DR.Laura Bernabe at [facility] for follow up,to call 911 if not feeling well
--- NOTE | 2019-09-15 13:00 | DS ---
[facility] Detox Discharge Summary Admission Date: 09/13/19 Discharge Date: 09/15/19 - History Present History: Alcohol Dependence Additional Comments: patient signed release ama,has all medications at home,advise to call 911 if not feeling well Pertinent Past History: type 2 dm gerd hypertension morbid obesity hyperlipidemia nicotine dependence schizoaffective disorder - Physical Exam Results Vital Signs: Vital Signs Temperature 97.2 F L 09/15/19 09:24 Pulse Rate 89 09/15/19 09:24 Respiratory Rate 18 09/15/19 09:24 Blood Pressure 145/96 09/15/19 09:24 O2 Sat by Pulse Oximetry (%) - Medication Discharge Medications: Ambulatory Orders Allopurinol [Zyloprim -] 100 mg PO BID 04/25/18 Colchicine [Colcrys] 0.6 mg PO DAILY 04/25/18 Metformin HCl [Glucophage] 500 mg PO BID 04/25/18 Quetiapine Fumarate [Seroquel -] 400 mg PO HS #30 tab 11/04/18 Sertraline HCl [Zoloft] 100 mg PO DAILY #30 tablet 11/04/18 Folic Acid - 1 mg PO DAILY 03/04/19 Atorvastatin Ca [Lipitor] 80 mg PO HS 08/12/19 Metoprolol Succinate 100 mg PO DAILY 08/12/19 Polyvinyl Alcohol [Artificial Tears] 1 drop OU TID PRN 09/13/19 Vits A and D/White Pet/Lanolin [A and D Ointment] 42.5 gm TP DAILY 09/13/19 - Diagnosis (1) Alcohol dependence with uncomplicated withdrawal Current Visit: Yes Status: Acute (2) Nicotine dependence Current Visit: Yes Status: Acute Qualifiers: Nicotine product type: cigarettes Substance use status: in withdrawal Qualified Code(s): F17.213 - Nicotine dependence, cigarettes, with withdrawal (3) DM (diabetes mellitus), type 2 Current Visit: Yes Status: Chronic Qualifiers: Diabetes mellitus lobsterman insulin use: without halfway use Diabetes mellitus complication status: with other specified complication Qualified Code (s): E11.69 - Type 2 diabetes mellitus with other specified complication (4) GERD (gastroesophageal reflux disease) Current Visit: Yes Status: Chronic Qualifiers: Esophagitis presence: without esophagitis Qualified Code(s): K21.9 - Gastro -esophageal reflux disease without esophagitis (5) Gouty arthritis Current Visit: Yes Status: Chronic (6) HTN (hypertension) Current Visit: Yes Status: Chronic Qualifiers: Hypertension type: essential hypertension Qualified Code(s): I10 - Essential (primary) hypertension (7) Schizoaffective disorder Current Visit: Yes Status: Acute (8) Schizoaffective disorder Current Visit: Yes Status: Chronic Qualifiers: Schizoaffective disorder type: unspecified Qualified Code(s): F25.9 - Schizoaffective disorder, unspecified - AMA Did Patient Leave Against Medical Advice: Yes
[2019-09-16] MEDS ORDERED: chlordiazePOXIDE HCL 10 MG CAPSULE PO PRN
[2019-09-16] MEDS ORDERED: chlordiazePOXIDE HCL 10 MG CAPSULE PO SCH (05:00)
[2019-09-17] MEDS ORDERED: chlordiazePOXIDE HCL 10 MG CAPSULE PO SCH (05:00)
[2019-09-18] MEDS ORDERED: chlordiazePOXIDE HCL 10 MG CAPSULE PO ONE (05:00)
== END 2019-09-15 13:11 | disposition left against medical advice (07) | DRG 770 ==
LOC: YASAS 08:42 → Y6N 10:58
PROVIDERS: ADMIT Allergy & Immunology; ATTEND Allergy & Immunology
PROC: HZ2ZZZZ Detoxification Services for Substance Abuse Treatment (ICD-10-PCS; principal; 2019-09-13)
DX: F10.230 Alcohol dependence with withdrawal, uncomplicated (principal); F17.213 Nicotine dependence, cigarettes, with withdrawal; F25.9 Schizoaffective disorder, unspecified; I10 Essential (primary) hypertension; E11.65 Type 2 diabetes mellitus with hyperglycemia; K21.9 Gastro-esophageal reflux disease without esophagitis; M10.9 Gout, unspecified; E87.6 Hypokalemia; E78.5 Hyperlipidemia, unspecified; E83.51 Hypocalcemia; R74.0 Nonspecific elevation of levels of transaminase and lactic acid dehydrogenase [LDH]; E66.01 Morbid (severe) obesity due to excess calories; Z68.35 Body mass index [BMI] 35.0-35.9, adult; Z88.8 Allergy status to other drugs, medicaments and biological substances
CPT/HCPCS: 36415; 80053; 82962; 84132; 85027; 86593; 93005; 93010

== ENCOUNTER 2019-10-28 09:15 | Inpatient (IN) | payer OTHER ==
--- NOTE | 2019-10-28 09:56 | BHS.RME ---
Substance Use & Tx History - Substance Use History Alcohol Substance amount: 1 pack beer plus 1 pint henessy Frequency of use: Daily Substance route: Oral Date of Last Use: 10/27/19 (8pm) Nicotine Substance amount: 4 ciggs Frequency of use: Daily Substance route: Smoking Date of Last Use: 10/28/19 Physical/Psych/Mental Status - Behavior General Behavior: Increased activity (restlessness, agitation) Eye Contact: Normal - Cooperativeness Cooperativeness: Cooperative - Thinking Thought Processes: Tight, Logical, Goal Directed Thought content: Future oriented - Physical Health Problems Is patient presently having any pain?: No Does patient presently have any injuries (include location): No Does patient currently have a fever: No Is patient : No CIWA Nausea/Vomitin-No Nausea/No Vomiting Muscle Tremors: 4-Moderate,w/Arms Extend Anxiety: 4-Mod. Anxious/Guarded Agitation: 3 Paroxysmal Sweats: 4-Forehead w/Sweat Beads Orientation: 0-Oriented Tacttile Disturbances: 0-None Auditory Disturbances: 0-None Visual Disturbances: 0-None Headache: 0-None Present CIWA-Ar Total Score: 15
[2019-10-28 10:24] VITALS: BMI 34.9
--- NOTE | 2019-10-28 10:52 | HP ---
CIWA Score Nausea/Vomitin-No Nausea/No Vomiting Muscle Tremors: 4-Moderate,w/Arms Extend Anxiety: 4-Mod. Anxious/Guarded Agitation: 3 Paroxysmal Sweats: 4-Forehead w/Sweat Beads Orientation: 0-Oriented Tacttile Disturbances: 0-None Auditory Disturbances: 0-None Visual Disturbances: 0-None Headache: 0-None Present CIWA-Ar Total Score: 15 - Admission Criteria [facility]ASAS Guidelines: Admission for Medically Managed Detox: Requires at least one of the followin. CIWA greater than 12 2. Seizures within the past 24 hours 3. Delirium tremens within the past 24 hours 4. Hallucinations within the past 24 hours 5. Acute intervention needed for co occurring medical disorder 6. Acute intervention needed for co occurring psychiatric disorder 7. Severe withdrawal that cannot be handled at a lower level of care (continued vomiting, continued diarrhea, abnormal vital signs) requiring intravenous medication and/or fluids 8. Admitting History and Physical - Admission Chief Complaint: Mr. Selby is a 54 yo gentleman who presents to [facility] requesting admission of alcohol detox. History of Present Illness: Mr. Selby is a 54 yo gentleman who presents to [facility] requesting admission of alcohol detox. He was last here in September and left AMA after 2 days. He was at [facility] yesterday with chest pain. He was diagnosed with low potassium and magnesium which was repleted. His cardiac work up was negative. PMH: arthritis, gout, HTN, DM, HLD, peptic ulcer, sleep apnea Psych: depression, insomnia Surgery: none Substance use history Alcohol: first use at the age of 14 y, lst use yesterday, 22 cans of beer daily/ 16 oz each. Black out 3 weeks ago. No hx of seizures. With abstinence he gets shakey, chills Nicotine: 4 cigs per day Denies: heroin, cocaine, IV drug use History Source: Patient Limitations to Obtaining History: No Limitations - Past Medical History Cardiovascular: Yes: HTN, Hyperlipdemia Gastrointestinal: Yes: GERD, Peptic Ulcer Disease Psych: Yes: Addictions, Depression Rheumatology: Yes: Gout Endocrine: Yes: Diabetes Mellitus - Past Surgical History Past Surgical History: Yes: None - Smoking History Smoking history: Current every day smoker Have you smoked in the past 12 months: Yes Aproximately how many cigarettes per day: 4 - Alcohol/Substance Use Hx Alcohol Use: Yes - Social History Usual Living Arrangement: Yes: Alone ADL: Support Services History of Recent Travel: No Admission ROS BHS - HPI Allergies/Adverse Reactions: Allergies Allergy/AdvReac Type Severity Reaction Status Date / Time influenza virus vaccine ts Allergy Severe Swelling Verified 10/28/19 10:25 2012- [From Fluarix] pneumococcal vaccine Allergy Severe Swelling Verified 10/28/19 10:25 [Pneumococcal Vaccine] Exam Limitations: No Limitations - Ebola screening Have you traveled outside of the country in the last 21 days: No Have you had contact with anyone from an Ebola affected area: No Have you been sick,other than usual withdrawal symptoms: No - Review of Systems Constitutional: No Symptoms Reported EENT: reports: No Symptoms Reported Respiratory: reports: No Symptoms reported Cardiac: reports: No Symptoms Reported GI: reports: No Symptoms Reported : reports: No Symptoms Reported Musculoskeletal: reports: No Symptoms Reported Integumentary: reports: No Symptoms Reported Neuro: reports: No Symptoms reported Endocrine: reports: No Symptoms Reported Hematology: reports: No Symptoms Reported Patient History - Patient Medical History Hx Anemia: No Hx Asthma: No Hx Chronic Obstructive Pulmonary Disease (COPD): No Hx Cancer: No Hx Cardiac Disorders: No Hx Congestive Heart Failure: No Hx Hypertension: Yes Hx Hypercholesterolemia: Yes (ON MED) Hx Pacemaker: No Hx Seizures: No Hx Dementia: No Hx Diabetes: Yes Hx Gastrointestinal Disorders: No Hx Liver Disease: Yes (elevated LFTs due to alcohol) Hx Genitourinary Disorders: No Hx Sexually Transmitted Disorders: No Hx Renal Disease (ESRD): No Hx Thyroid Disease: No Hx Human Immunodeficiency Virus (HIV): No (NEGATIVE HX last 2017 negative) Hx Hepatitis C: No Hx Depression: Yes Hx Suicide Attempt: No Hx Bipolar Disorder: No Hx Schizophrenia: No - Patient Surgical History Past Surgical History: No Hx Neurologic Surgery: No Hx Cataract Extraction: No Hx Cardiac Surgery: No Hx Lung Surgery: No Hx Breast Surgery: No Hx Breast Biopsy: No Hx Abdominal Surgery: No Hx Appendectomy: No Hx Cholecystectomy: No Hx Genitourinary Surgery: No Hx Section: No Hx Orthopedic Surgery: Yes Other Surgical History: has had joint effusions drained in knees Anesthesia Reaction: No - PPD History Previous Implant?: Yes Documented Results: Negative w/proof Date: 11/06/18 Results: NEGATIVE - Smoking Cessation Smoking history: Current every day smoker Have you smoked in the past 12 months: Yes Aproximately how many cigarettes per day: 4 Cigars Per Day: 0 Hx Chewing Tobacco Use: No Initiated information on smoking cessation: Yes 'Breaking Loose' booklet given: 10/28/19 - Substances abused Alcohol Substance route: Oral Frequency: Daily Amount used: 16-22 CANS OF BEER, MALT LIQOUR, 1 PINT OF VODKA Age of first use: 14 Date of last use: 10/27/19 Admission Physical Exam [facility] - Vital Signs Vital Signs: Vital Signs - 24 hr 10/28/19 10:22 Temperature 98.5 F Pulse Rate 110 H Respiratory 18 Rate Blood Pressure 190/95 H - Physical General Appearance: Yes: Within Normal Limits, Obese HEENTM: Yes: Hearing grossly Normal, Normocephalic, Normal Voice Respiratory: Yes: Lungs Clear, Normal Breath Sounds Neck: Yes: Within Normal Limits Breast: Yes: Breast Exam Deferred Cardiology: Yes: S1, S2, Tachycardia Abdominal: Yes: Normal Bowel Sounds, Non Tender, Soft, Protuberent, Hernia Genitourinary: Yes: Other (deferred) Back: Yes: Normal Inspection Musculoskeletal: Yes: Within Normal Limits Extremities: Yes: Within Normal Limits 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: Fully Oriented, Normal Response Integumentary: Yes: Within Normal Limits - Diagnostic (1) Alcohol dependence with uncomplicated withdrawal Current Visit: Yes Status: Acute (2) Nicotine dependence Current Visit: Yes Status: Acute Qualifiers: Nicotine product type: cigarettes Substance use status: in withdrawal Qualified Code(s): F17.213 - Nicotine dependence, cigarettes, with withdrawal (3) Anxiety and depression Current Visit: Yes Status: Chronic Cleared for Admission [facility] - Detox or Rehab [facility] Level of Care: Medically Managed Breathalyzer - Breathalyzer Breathalyzer: 0 Urine Drug Screen - Test Device Lot number: [id number] Expiration date: 10/28/19 - Control Is test valid?: Yes - Results Drug screen NEGATIVE: No Urine drug screen results: BZO-Benzodiazepines Inpatient Rehab Admission - Rehab Decision to Admit Inpatient rehab admission?: No
[2019-10-28] MEDS ORDERED: MELATONIN 5 MG TABLETS PO PRN (10:57)
[2019-10-28] MEDS ORDERED: hydrOXYzine PAMOATE 25 MG CAPSULE (FP) PO PRN (10:57)
[2019-10-28] MEDS ORDERED: MAGNESIUM CITRATE 300 ML BOTTLE PO PRN (10:57)
[2019-10-28] MEDS ORDERED: NICOTINE POLACRILEX 2 MG GUM BUC PRN (10:57)
[2019-10-28] MEDS ORDERED: ACETAMINOPHEN 325 MG TABLET (FP) PO PRN ×2 (10:57)
[2019-10-28] MEDS ORDERED: MENTHOL/PHENOL 1 EACH UD MM PRN (10:57)
[2019-10-28] MEDS ORDERED: MAG HYDROX/AL HYDROX/SIMETH 30 ML UNIT-DOSE CUP PO PRN (10:57)
[2019-10-28] MEDS ORDERED: BISMUTH SUBSALICYLATE 262 MG/15 ML BTL PO PRN (10:57)
[2019-10-28] MEDS ORDERED: MAGNESIUM HYDROX 2400MG/30ML ORAL SUSPENSION 30 ML CUP PO PRN (10:57)
[2019-10-28] MEDS ORDERED: chlordiazePOXIDE HCL 25 MG CAPSULE PO PRN (10:57)
[2019-10-28] MEDS ORDERED: ARTIFICIAL TEARS (POLYVINYL ALCOHOL) OPTH DROPS OU PRN (11:00)
--- NOTE | 2019-10-28 12:41 | EKG ---
Test Reason : Blood Pressure : / mmHG Vent. Rate : 094 BPM Atrial Rate : 094 BPM P-R Int : 172 ms QRS Dur : 074 ms QT Int : 362 ms P-R-T Axes : 058 000 013 degrees QTc Int : 452 ms SINUS RHYTHM WITH PREMATURE SUPRAVENTRICULAR COMPLEXES MINIMAL VOLTAGE CRITERIA FOR LVH, MAY BE NORMAL VARIANT NONSPECIFIC ST AND T WAVE ABNORMALITY ABNORMAL ECG WHEN COMPARED WITH ECG OF 13-SEP-2019 11:23, PREMATURE SUPRAVENTRICULAR COMPLEXES ARE NOW PRESENT Confirmed by MD Hailey, Vic ([id number]) on 10/28/2019 12:40:46 PM Referred By: Confirmed By:Vic Hart MD
[2019-10-28] MEDS: FOLIC ACID 1 MG TABLET (FP) PO SCH (13:52)
[2019-10-28] MEDS: ALLOPURINOL 100 MG TABLET (FP) PO SCH (13:52)
[2019-10-28] MEDS: metFORMIN HCL 500 MG TABLET (FP) PO SCH ×2 (13:53→18:03)
[2019-10-28] MEDS: chlordiazePOXIDE HCL 25 MG CAPSULE PO SCH ×3 (13:53→22:28)
[2019-10-28] MEDS: COLCHICINE 0.6 MG CAP PO SCH (13:53)
[2019-10-28] MEDS: NICOTINE 14 MG/24 HOURS TOPICAL PATCH TD SCH (13:57)
[2019-10-28] MEDS: LANOLIN (EMOLL) 30 GM TUBE TP SCH (13:58)
[2019-10-28 16:19] LABS: HEMATOCRIT 40.4 % (35.4-49); HEMOGLOBIN 13.7 GM/dL (11.7-16.9); MCH 32.9 pg (25.7-33.7); MCHC 33.8 g/dl (32.0-35.9); MEAN CELL VOLUME 97.2 fl (80-96); MEAN PLT VOLUME 10.9 fl (7.5-11.1); PLATELET COUNT 121 K/MM3 (134-434); RBC 4.15 M/mm3 (4.00-5.60); RDW 16.2 % (11.9-15.9); WHITE BLOOD COUNT 3.2 K/mm3 (4.0-10.0)
[2019-10-28 16:24] LABS: ALBUMIN 3.4 g/dl (3.4-5.0); BILIRUBIN,TOTAL 0.6 mg/dL (0.2-1); BLOOD UREA NITROGEN 8.1 mg/dL (7-18); CALCIUM 9.6 mg/dL (8.5-10.1); TOT PROT 7.1 g/dl (6.4-8.2)
[2019-10-28] MEDS: ATORVASTATIN CA 80 MG TABLET (FP) PO SCH (22:28)
[2019-10-28] MEDS: THIAMINE HCL 100 MG TABLET (FP) PO SCH (22:28)
[2019-10-28] MEDS: METHOCARBAMOL 500 MG TABLET PO PRN (22:31)
[2019-10-29] MEDS: metFORMIN HCL 500 MG TABLET (FP) PO SCH ×2 (06:09→17:37)
[2019-10-29] MEDS: chlordiazePOXIDE HCL 25 MG CAPSULE PO SCH ×4 (06:09→22:25)
[2019-10-29] MEDS ORDERED: IBUPROFEN 400 MG TABLET (FP) PO ONE (09:35)
[2019-10-29] MEDS ORDERED: METHOCARBAMOL 500 MG TABLET PO ONE (09:36)
--- NOTE | 2019-10-29 09:43 | PN ---
S CIWA - CIWA Score Nausea/Vomitin-Mild Nausea/No Vomiting Muscle Tremors: 3 Anxiety: 3 Agitation: 0-Normal Activity Paroxysmal Sweats: 2 Orientation: 0-Oriented Tacttile Disturbances: 0-None Auditory Disturbances: 0-None Visual Disturbances: 1-Very Mild Sensitivity Headache: 2-Mild CIWA-Ar Total Score: 12 BHS Progress Note (SOAP) Subjective: 54 years old male admitted on 10/28/28 for alcohol withdrawal sx management treating with librium detox regiment reports right cheek around the right jaw muscle sore x 2-3 weeks motrin 400 mg po x 1 robaxin 500mg po x 1 reports post nasal drip coughing at night mucinex 600 mg po bid claritin 10 mg po hs Objective: 10/29/19 09:43 Vital Signs Temperature 98.3 F 10/29/19 06:45 Pulse Rate 81 10/29/19 06:45 Respiratory Rate 18 10/29/19 06:45 Blood Pressure 124/71 10/29/19 06:45 O2 Sat by Pulse Oximetry (%) Laboratory Last Values WBC 3.2 K/mm3 (4.0-10.0) L 10/28/19 11:24 RBC 4.15 M/mm3 (4.00-5.60) 10/28/19 11:24 Hgb 13.7 GM/dL (11.7-16.9) 10/28/19 11:24 Hct 40.4 % (35.4-49) 10/28/19 11:24 MCV 97.2 fl (80-96) H 10/28/19 11:24 MCH 32.9 pg (25.7-33.7) 10/28/19 11:24 MCHC 33.8 g/dl (32.0-35.9) 10/28/19 11:24 RDW 16.2 % (11.9-15.9) H 10/28/19 11:24 Plt Count 121 K/MM3 (134-434) L 10/28/19 11:24 MPV 10.9 fl (7.5-11.1) 10/28/19 11:24 Sodium 139 mmol/L (136-145) 10/28/19 11:24 Potassium 4.0 mmol/L (3.5-5.1) 10/28/19 11:24 Chloride 106 mmol/L (98-107) 10/28/19 11:24 Carbon Dioxide 30 mmol/L (21-32) 10/28/19 11:24 Anion Gap 4 MMOL/L (8-16) L 10/28/19 11:24 BUN 8.1 mg/dL (7-18) 10/28/19 11:24 Creatinine 1.0 mg/dL (0.55-1.3) 10/28/19 11:24 Est GFR (CKD-EPI)AfAm 97.08 10/28/19 11:24 Est GFR (CKD-EPI)NonAf 83.76 10/28/19 11:24 POC Glucometer 125 UNITS (80-120) 10/29/19 06:08 Random Glucose 124 mg/dL (74-106) H 10/28/19 11:24 Calcium 9.6 mg/dL (8.5-10.1) 10/28/19 11:24 Total Bilirubin 0.6 mg/dL (0.2-1) 10/28/19 11:24 AST 94 U/L (15-37) H 10/28/19 11:24 ALT 89 U/L (13-61) H 10/28/19 11:24 Alkaline Phosphatase 83 U/L (45-117) 10/28/19 11:24 Total Protein 7.1 g/dl (6.4-8.2) 10/28/19 11:24 Albumin 3.4 g/dl (3.4-5.0) 10/28/19 11:24 RPR Titer Nonreactive (NONREACTIVE) 10/28/19 11:24 lab noted Assessment: 10/29/19 09:44 alcohol withdrawal Plan: librium regiment
[2019-10-29] MEDS: COLCHICINE 0.6 MG CAP PO SCH (10:21)
[2019-10-29] MEDS: ALLOPURINOL 100 MG TABLET (FP) PO SCH (10:21)
[2019-10-29] MEDS: FOLIC ACID 1 MG TABLET (FP) PO SCH (10:21)
[2019-10-29] MEDS: PRENATAL VITAMINS W/ FOLIC ACID TABLET (FP) PO SCH (10:21)
[2019-10-29] MEDS: guaiFENesin 600 MG TABLET.ER (FP) PO SCH ×2 (10:24→22:26)
[2019-10-29] MEDS: NICOTINE 14 MG/24 HOURS TOPICAL PATCH TD SCH (10:51)
--- NOTE | 2019-10-29 13:04 | CONSULT ---
[facility] Psychiatric Consult - Data Date of interview: 10/29/19 (\) Admission source: [facility] Identifying data: Readmission to [address] [place] [address] for this 54 y/o AA male self-referred for detoxification treatment. TD issues : alcohol, nicotine. Patient is single without dependents, domiciled ([place] setting), unemployed and supported on SSI benefits. Substance Abuse History: Discussed in this session. Details concordant with current [facility] report as follows : Smoking history: Current every day smoker. Have you smoked in the past 12 months: Yes. Aproximately how many cigarettes per day: 4. Cigars Per Day: 0. Hx Chewing Tobacco Use: No. Initiated information on smoking cessation: Yes. 'Breaking Loose' booklet given: . - Substances abused. Alcohol. Substance route: Oral. Frequency: Daily. Amount used: 16-22 CANS OF BEER, MALT LIQOUR, 1 PINT OF VODKA. Age of first use: 14. Date of last use: 10/27/19 Medical History: Medical profile is remarkable for obesity, gout, arthritis, GERD, dyslipidemia, diabetes mellitus, hypertension and a history of sleep apnea. Psychiatric History: Patient presents with a history of multiple psychiatric hospitalizations ([facility], [facility], [facility]) since onset of emotional disturbances at age 17. Diagnosed with MDD and Schizophrenia. Mr Selby, since his relocation to the [place] (three years ago), has not been under the care of a psychiatrist. Patient is maintained on a regimen of 400 mg/hs + zoloft 100 mg/day (prescribed by his primary care physician, Dr Amos). Patient denies history of suicide attempts. Physical/Sexual Abuse/Trauma History: Patient denies. Additional Comment: Urine drug screen results: BZO-Benzodiazepines. Noted. Mental Status Exam - Mental Status Exam Alert and Oriented to: Time, Place, Person Cognitive Function: Good Patient Appearance: Well Groomed Mood: Withdrawn, Hopeful Affect: Appropriate, Normal Range Patient Behavior: Fatigued, Appropriate, Cooperative Speech Pattern: Clear, Appropriate Voice Loudness: Normal Thought Process: Intact, Goal Oriented Thought Disorder: Not Present Hallucinations: Denies Suicidal Ideation: Denies Homicidal Ideation: Denies Insight/Judgement: Fair Sleep: Poorly, Difficulty falling asleep Appetite: Good Gait/Station: Normal Psychiatric Findings - Problem List ([place] 1, 2,3) (1) Alcohol dependence with uncomplicated withdrawal Current Visit: Yes Status: Acute (2) Nicotine dependence Current Visit: Yes Status: Chronic Qualifiers: Nicotine product type: cigarettes Substance use status: in withdrawal Qualified Code(s): F17.213 - Nicotine dependence, cigarettes, with withdrawal (3) Substance induced mood disorder Current Visit: Yes Status: Suspected (4) Schizophrenia Current Visit: Yes Status: Chronic Qualifiers: Schizophrenia type: unspecified Qualified Code(s): F20.9 - Schizophrenia, unspecified Comment: As per patient's report. (5) Insomnia Current Visit: Yes Status: Chronic - Initial Treatment Plan Initial Treatment Plan: Records ([facility]) revisited. Sleep hygiene. Detoxification in progress. Patient is a reliable historian (already known to senior copywriter). AA meetings. ETOH-MAT services are discussed with the patient. Seems interested in resuming vivitrol as an oupatient (already connected with a program in the [place] : intake pending). Resumed : seroquel 300 mg po hs (reduced as caution against oversedation) + zoloft 100 mg po daily. Side effects/benefits of both drugs are discussed with patient. Mr Selby is in agreement with this plan of care. Observation.
[2019-10-29] MEDS: LANOLIN (EMOLL) 30 GM TUBE TP SCH (13:46)
[2019-10-29] MEDS: IBUPROFEN 400 MG TABLET (FP) PO PRN (17:38)
[2019-10-29] MEDS: VITAMINS A AND D TOPICAL OINTMENT 60 GM TUBE TP PRN (17:39)
[2019-10-29] MEDS ORDERED: QUEtiapine FUMARATE 100 MG TABLET (FP) ONE (21:17)
[2019-10-29] MEDS: LORATADINE 10 MG TABLET PO SCH (22:26)
[2019-10-29] MEDS: THIAMINE HCL 100 MG TABLET (FP) PO SCH (22:26)
[2019-10-29] MEDS: ATORVASTATIN CA 80 MG TABLET (FP) PO SCH (22:26)
[2019-10-29] MEDS: QUEtiapine FUMARATE 300 MG TABLET PO SCH (22:26)
[2019-10-29] MEDS: METHOCARBAMOL 500 MG TABLET PO PRN (22:29)
[2019-10-30] MEDS: IBUPROFEN 400 MG TABLET (FP) PO PRN ×3 (02:23→18:13)
[2019-10-30] MEDS: chlordiazePOXIDE HCL 25 MG CAPSULE PO SCH ×4 (06:20→22:27)
[2019-10-30] MEDS: metFORMIN HCL 500 MG TABLET (FP) PO SCH ×2 (06:22→18:11)
[2019-10-30] MEDS: METHOCARBAMOL 500 MG TABLET PO PRN ×2 (06:24→18:13)
--- NOTE | 2019-10-30 09:04 | PN ---
S CIWA - CIWA Score Nausea/Vomitin-No Nausea/No Vomiting Muscle Tremors: 3 Anxiety: 4-Mod. Anxious/Guarded Agitation: 0-Normal Activity Paroxysmal Sweats: 1-Minimal Palms Moist Orientation: 0-Oriented Tacttile Disturbances: 0-None Auditory Disturbances: 0-None Visual Disturbances: 1-Very Mild Sensitivity Headache: 0-None Present CIWA-Ar Total Score: 9 [facility] Progress Note (SOAP) Subjective: 54 years old male admitted on 10/28/19 for alcohol withdrawal sx management treating with librium detox regiment resting in bed discuss aftercare with staff favor out patient chemical dependent rehab prefers to sleep longer ended of conversation Objective: 10/30/19 09:05 Vital Signs Temperature 98.2 F 10/30/19 06:24 Pulse Rate 80 10/30/19 06:24 Respiratory Rate 18 10/30/19 06:24 Blood Pressure 129/77 10/30/19 06:24 O2 Sat by Pulse Oximetry (%) Laboratory Last Values WBC 3.2 K/mm3 (4.0-10.0) L 10/28/19 11:24 RBC 4.15 M/mm3 (4.00-5.60) 10/28/19 11:24 Hgb 13.7 GM/dL (11.7-16.9) 10/28/19 11:24 Hct 40.4 % (35.4-49) 10/28/19 11:24 MCV 97.2 fl (80-96) H 10/28/19 11:24 MCH 32.9 pg (25.7-33.7) 10/28/19 11:24 MCHC 33.8 g/dl (32.0-35.9) 10/28/19 11:24 RDW 16.2 % (11.9-15.9) H 10/28/19 11:24 Plt Count 121 K/MM3 (134-434) L 10/28/19 11:24 MPV 10.9 fl (7.5-11.1) 10/28/19 11:24 Sodium 139 mmol/L (136-145) 10/28/19 11:24 Potassium 4.0 mmol/L (3.5-5.1) 10/28/19 11:24 Chloride 106 mmol/L (98-107) 10/28/19 11:24 Carbon Dioxide 30 mmol/L (21-32) 10/28/19 11:24 Anion Gap 4 MMOL/L (8-16) L 10/28/19 11:24 BUN 8.1 mg/dL (7-18) 10/28/19 11:24 Creatinine 1.0 mg/dL (0.55-1.3) 10/28/19 11:24 Est GFR (CKD-EPI)AfAm 97.08 10/28/19 11:24 Est GFR (CKD-EPI)NonAf 83.76 10/28/19 11:24 POC Glucometer 154 UNITS (80-120) 10/30/19 06:21 Random Glucose 124 mg/dL (74-106) H 10/28/19 11:24 Calcium 9.6 mg/dL (8.5-10.1) 10/28/19 11:24 Total Bilirubin 0.6 mg/dL (0.2-1) 10/28/19 11:24 AST 94 U/L (15-37) H 10/28/19 11:24 ALT 89 U/L (13-61) H 10/28/19 11:24 Alkaline Phosphatase 83 U/L (45-117) 10/28/19 11:24 Total Protein 7.1 g/dl (6.4-8.2) 10/28/19 11:24 Albumin 3.4 g/dl (3.4-5.0) 10/28/19 11:24 RPR Titer Nonreactive (NONREACTIVE) 10/28/19 11:24 lab noted Assessment: 10/30/19 09:05 alcohol withdrawal Plan: librium regiment
[2019-10-30] MEDS: guaiFENesin 600 MG TABLET.ER (FP) PO SCH ×2 (10:31→22:27)
[2019-10-30] MEDS: VITAMINS A AND D TOPICAL OINTMENT 60 GM TUBE TP PRN (10:31)
[2019-10-30] MEDS: ALLOPURINOL 100 MG TABLET (FP) PO SCH (10:31)
[2019-10-30] MEDS: PRENATAL VITAMINS W/ FOLIC ACID TABLET (FP) PO SCH (10:31)
[2019-10-30] MEDS: SERTRALINE HCL 50 MG TABLET (FP) PO SCH (10:31)
[2019-10-30] MEDS: FOLIC ACID 1 MG TABLET (FP) PO SCH (10:31)
[2019-10-30] MEDS: NICOTINE 14 MG/24 HOURS TOPICAL PATCH TD SCH (10:32)
[2019-10-30] MEDS: COLCHICINE 0.6 MG CAP PO SCH (10:42)
[2019-10-30] MEDS: LANOLIN (EMOLL) 30 GM TUBE TP SCH (10:43)
[2019-10-30] MEDS ORDERED: METOPROLOL TARTRATE 50 MG TABLET (FP) PO ONE (19:15)
--- NOTE | 2019-10-30 19:17 | PN ---
[facility] Progress Note Note: called by nursing for abnormla VS . pt has no c/o Vital Signs - 24 hr 10/29/19 10/30/19 10/30/19 20:42 00:30 03:30 Temperature 98.6 F Pulse Rate 83 Respiratory 18 18 18 Rate Blood Pressure 154/94 10/30/19 10/30/19 10/30/19 06:24 08:46 12:20 Temperature 98.2 F 97.2 F L 97.4 F L Pulse Rate 80 86 58 L Respiratory 18 17 20 Rate Blood Pressure 129/77 141/91 105/63 10/30/19 10/30/19 12:34 18:35 Temperature 99.6 F 98.1 F Pulse Rate 93 H 87 Respiratory 20 18 Rate Blood Pressure 149/92 169/99 P ; metoprolol 25 mg x once.
[2019-10-30] MEDS ORDERED: QUEtiapine FUMARATE 100 MG TABLET (FP) ONE (21:32)
[2019-10-30] MEDS: QUEtiapine FUMARATE 300 MG TABLET PO SCH (22:27)
[2019-10-30] MEDS: LORATADINE 10 MG TABLET PO SCH (22:27)
[2019-10-30] MEDS: ATORVASTATIN CA 80 MG TABLET (FP) PO SCH (22:27)
[2019-10-30] MEDS: THIAMINE HCL 100 MG TABLET (FP) PO SCH (22:28)
[2019-10-31] MEDS ORDERED: chlordiazePOXIDE HCL 10 MG CAPSULE PO PRN
[2019-10-31] MEDS: chlordiazePOXIDE HCL 10 MG CAPSULE PO SCH ×4 (05:58→22:11)
[2019-10-31] MEDS: metFORMIN HCL 500 MG TABLET (FP) PO SCH ×2 (07:01→17:27)
--- NOTE | 2019-10-31 10:29 | PN ---
[facility] CIWA - CIWA Score Nausea/Vomitin-No Nausea/No Vomiting Muscle Tremors: None Anxiety: 0-No Anxiety, at Ease Agitation: 0-Normal Activity Paroxysmal Sweats: No Perspiration Orientation: 1-Uncertain about Date Tacttile Disturbances: 0-None Auditory Disturbances: 0-None Visual Disturbances: 0-None Headache: 0-None Present CIWA-Ar Total Score: 1 [facility] Progress Note (SOAP) Subjective: Pt looking forward to discharge, plans to go to [place] Objective: 10/31/19 10:25 Laboratory Results - last 24 hr 10/30/19 10/31/19 16:48 06:53 POC Glucometer 138 135 Laboratory Last Values WBC 3.2 K/mm3 (4.0-10.0) L 10/28/19 11:24 RBC 4.15 M/mm3 (4.00-5.60) 10/28/19 11:24 Hgb 13.7 GM/dL (11.7-16.9) 10/28/19 11:24 Hct 40.4 % (35.4-49) 10/28/19 11:24 MCV 97.2 fl (80-96) H 10/28/19 11:24 MCH 32.9 pg (25.7-33.7) 10/28/19 11:24 MCHC 33.8 g/dl (32.0-35.9) 10/28/19 11:24 RDW 16.2 % (11.9-15.9) H 10/28/19 11:24 Plt Count 121 K/MM3 (134-434) L 10/28/19 11:24 MPV 10.9 fl (7.5-11.1) 10/28/19 11:24 Sodium 139 mmol/L (136-145) 10/28/19 11:24 Potassium 4.0 mmol/L (3.5-5.1) 10/28/19 11:24 Chloride 106 mmol/L (98-107) 10/28/19 11:24 Carbon Dioxide 30 mmol/L (21-32) 10/28/19 11:24 Anion Gap 4 MMOL/L (8-16) L 10/28/19 11:24 BUN 8.1 mg/dL (7-18) 10/28/19 11:24 Creatinine 1.0 mg/dL (0.55-1.3) 10/28/19 11:24 Est GFR (CKD-EPI)AfAm 97.08 10/28/19 11:24 Est GFR (CKD-EPI)NonAf 83.76 10/28/19 11:24 POC Glucometer 135 UNITS (80-120) 10/31/19 06:53 Random Glucose 124 mg/dL (74-106) H 10/28/19 11:24 Calcium 9.6 mg/dL (8.5-10.1) 10/28/19 11:24 Total Bilirubin 0.6 mg/dL (0.2-1) 10/28/19 11:24 AST 94 U/L (15-37) H 10/28/19 11:24 ALT 89 U/L (13-61) H 10/28/19 11:24 Alkaline Phosphatase 83 U/L (45-117) 10/28/19 11:24 Total Protein 7.1 g/dl (6.4-8.2) 10/28/19 11:24 Albumin 3.4 g/dl (3.4-5.0) 10/28/19 11:24 RPR Titer Nonreactive (NONREACTIVE) 10/28/19 11:24 Vital Signs - 24 hr 10/30/19 10/30/19 10/30/19 12:20 12:34 18:35 Temperature 97.4 F L 99.6 F 98.1 F Pulse Rate 58 L 93 H 87 Respiratory 20 20 18 Rate Blood Pressure 105/63 149/92 169/99 10/30/19 10/31/19 10/31/19 21:14 00:58 03:55 Temperature 99.2 F Pulse Rate 85 Respiratory 18 18 18 Rate Blood Pressure 142/87 10/31/19 10/31/19 05:16 09:11 Temperature 97.9 F 98.0 F Pulse Rate 78 87 Respiratory 18 18 Rate Blood Pressure 138/86 143/96 PE Gnl: WD, obese, in NAD MS: awake, alert, nl mentation Motor; moves all limbs well Coord: ambulates well Assessment: 10/31/19 10:26 1. Alcohol use disorder 2. PMH: HTN, DM, gout, PUD, sleep apnea Plan: 1. continue Librium withdrawal protocol 2. continue home meds for PMH 3. pending discharge to [facility] 4. regular discharged planned for 11/02
[2019-10-31] MEDS: COLCHICINE 0.6 MG CAP PO SCH (10:31)
[2019-10-31] MEDS: ALLOPURINOL 100 MG TABLET (FP) PO SCH (10:32)
[2019-10-31] MEDS: SERTRALINE HCL 50 MG TABLET (FP) PO SCH (10:32)
[2019-10-31] MEDS: guaiFENesin 600 MG TABLET.ER (FP) PO SCH ×2 (10:32→22:10)
[2019-10-31] MEDS: FOLIC ACID 1 MG TABLET (FP) PO SCH (10:32)
[2019-10-31] MEDS: PRENATAL VITAMINS W/ FOLIC ACID TABLET (FP) PO SCH (10:32)
[2019-10-31] MEDS: LANOLIN (EMOLL) 30 GM TUBE TP SCH (10:33)
[2019-10-31] MEDS: NICOTINE 14 MG/24 HOURS TOPICAL PATCH TD SCH (10:34)
[2019-10-31] MEDS: METHOCARBAMOL 500 MG TABLET PO PRN (17:28)
[2019-10-31] MEDS ORDERED: QUEtiapine FUMARATE 100 MG TABLET (FP) ONE (21:00)
[2019-10-31] MEDS: LORATADINE 10 MG TABLET PO SCH (22:10)
[2019-10-31] MEDS: THIAMINE HCL 100 MG TABLET (FP) PO SCH (22:10)
[2019-10-31] MEDS: ATORVASTATIN CA 80 MG TABLET (FP) PO SCH (22:10)
[2019-10-31] MEDS: QUEtiapine FUMARATE 300 MG TABLET PO SCH (22:11)
[2019-11-01] MEDS ORDERED: chlordiazePOXIDE HCL 10 MG CAPSULE PO SCH (05:00)
[2019-11-01] MEDS: metFORMIN HCL 500 MG TABLET (FP) PO SCH (06:09)
[2019-11-01 09:17] VITALS: BP 131/83; PULSE 85; TEMP 97.8
--- NOTE | 2019-11-01 12:10 | DS ---
[facility] Detox Discharge Summary Admission Date: 10/28/19 Discharge Date: 11/01/19 - History Present History: Alcohol Dependence Additional Comments: As per H&P: "a 54 yo gentleman who presents to [facility] requesting admission of alcohol detox. He was last here in September and left AMA after 2 days. He was at [facility] yesterday with chest pain. He was diagnosed with low potassium and magnesium which was repleted. His cardiac work up was negative. PMH: arthritis, gout, HTN, DM, HLD, peptic ulcer, sleep apnea Psych: depression, insomnia". Pt is medically cleared and is discharged today. Pt completed the detox protocol. Pt is encouraged to follow-up with an outpatient CD program and also to follow-up with his pmd. Pt verbalized understanding. Pt is alert and oriented x3 and in no acute respiratory distress. Pertinent Past History: H/o alcohol use disorder. - Physical Exam Results Vital Signs: Vital Signs Temperature 97.8 F 11/01/19 08:36 Pulse Rate 85 11/01/19 08:36 Respiratory Rate 18 11/01/19 08:36 Blood Pressure 131/83 11/01/19 08:36 O2 Sat by Pulse Oximetry (%) Vital Signs 11/01/19 11/01/19 07:17 08:36 Temperature 98.2 F 97.8 F Pulse Rate 76 85 Respiratory 18 18 Rate Blood Pressure 107/69 131/83 Laboratory Last Values WBC 3.2 K/mm3 (4.0-10.0) L 10/28/19 11:24 RBC 4.15 M/mm3 (4.00-5.60) 10/28/19 11:24 Hgb 13.7 GM/dL (11.7-16.9) 10/28/19 11:24 Hct 40.4 % (35.4-49) 10/28/19 11:24 MCV 97.2 fl (80-96) H 10/28/19 11:24 MCH 32.9 pg (25.7-33.7) 10/28/19 11:24 MCHC 33.8 g/dl (32.0-35.9) 10/28/19 11:24 RDW 16.2 % (11.9-15.9) H 10/28/19 11:24 Plt Count 121 K/MM3 (134-434) L 10/28/19 11:24 MPV 10.9 fl (7.5-11.1) 10/28/19 11:24 Sodium 139 mmol/L (136-145) 10/28/19 11:24 Potassium 4.0 mmol/L (3.5-5.1) 10/28/19 11:24 Chloride 106 mmol/L (98-107) 10/28/19 11:24 Carbon Dioxide 30 mmol/L (21-32) 10/28/19 11:24 Anion Gap 4 MMOL/L (8-16) L 10/28/19 11:24 BUN 8.1 mg/dL (7-18) 10/28/19 11:24 Creatinine 1.0 mg/dL (0.55-1.3) 10/28/19 11:24 Est GFR (CKD-EPI)AfAm 97.08 10/28/19 11:24 Est GFR (CKD-EPI)NonAf 83.76 10/28/19 11:24 POC Glucometer 110 UNITS (80-120) 11/01/19 05:45 Random Glucose 124 mg/dL (74-106) H 10/28/19 11:24 Calcium 9.6 mg/dL (8.5-10.1) 10/28/19 11:24 Total Bilirubin 0.6 mg/dL (0.2-1) 10/28/19 11:24 AST 94 U/L (15-37) H 10/28/19 11:24 ALT 89 U/L (13-61) H 10/28/19 11:24 Alkaline Phosphatase 83 U/L (45-117) 10/28/19 11:24 Total Protein 7.1 g/dl (6.4-8.2) 10/28/19 11:24 Albumin 3.4 g/dl (3.4-5.0) 10/28/19 11:24 RPR Titer Nonreactive (NONREACTIVE) 10/28/19 11:24 Labs noted. Pertinent Admission Physical Exam Findings: withdrawal symptoms. - Treatment Hospital Course: Detox Protocol Followed, Detoxed Safely, Responded well, Discharged Condition Good - Medication Discharge Medications: Ambulatory Orders Allopurinol [Zyloprim -] 200 mg PO DAILY 04/25/18 Colchicine [Colcrys] 0.6 mg PO DAILY 04/25/18 Metformin HCl [Glucophage] 500 mg PO BID 04/25/18 Quetiapine Fumarate [Seroquel -] 400 mg PO HS #30 tab 11/04/18 Sertraline HCl [Zoloft] 100 mg PO DAILY #30 tablet 11/04/18 Folic Acid - 1 mg PO DAILY 03/04/19 Atorvastatin Ca [Lipitor] 80 mg PO HS 08/12/19 Metoprolol Succinate 100 mg PO BID 08/12/19 Polyvinyl Alcohol [Artificial Tears] 1 drop OU TID PRN 09/13/19 Vits A and D/White Pet/Lanolin [A and D Ointment] 42.5 gm TP DAILY 09/13/19 Thiamine HCl [B-1] 100 mg PO DAILY 10/28/19 - Diagnosis (1) Alcohol dependence with uncomplicated withdrawal Status: Acute (2) GERD (gastroesophageal reflux disease) Status: Chronic Qualifiers: Esophagitis presence: without esophagitis Qualified Code(s): K21.9 - Gastro -esophageal reflux disease without esophagitis (3) Gouty arthritis Status: Chronic (4) HTN (hypertension) Status: Chronic Qualifiers: Hypertension type: essential hypertension Qualified Code(s): I10 - Essential (primary) hypertension (5) History of sleep apnea Status: Chronic (6) Hyperlipidemia Status: Chronic Qualifiers: Hyperlipidemia type: unspecified Qualified Code(s): E78.5 - Hyperlipidemia , unspecified (7) Nicotine dependence Status: Chronic Qualifiers: Nicotine product type: cigarettes Substance use status: in withdrawal Qualified Code(s): F17.213 - Nicotine dependence, cigarettes, with withdrawal - AMA Did Patient Leave Against Medical Advice: No
[2019-11-02] MEDS ORDERED: chlordiazePOXIDE HCL 10 MG CAPSULE PO ONE (05:00)
== END 2019-11-01 09:34 | disposition home or self-care (01) | DRG 775 ==
LOC: YASAS 09:15 → Y3N 11:26
PROVIDERS: ADMIT Allergy & Immunology; ATTEND Allergy & Immunology
PROC: HZ2ZZZZ Detoxification Services for Substance Abuse Treatment (ICD-10-PCS; principal; 2019-10-28)
DX: F10.230 Alcohol dependence with withdrawal, uncomplicated (principal); F17.210 Nicotine dependence, cigarettes, uncomplicated; F19.24 Other psychoactive substance dependence with psychoactive substance-induced mood disorder; F20.9 Schizophrenia, unspecified; F32.9 Major depressive disorder, single episode, unspecified; G47.00 Insomnia, unspecified; I10 Essential (primary) hypertension; E11.9 Type 2 diabetes mellitus without complications; Z79.84 Long term (current) use of oral hypoglycemic drugs; E78.5 Hyperlipidemia, unspecified; G47.39 Other sleep apnea; M10.9 Gout, unspecified; Z88.7 Allergy status to serum and vaccine; Z87.11 Personal history of peptic ulcer disease
CPT/HCPCS: 36415; 80053; 82962; 85027; 86593; 93005; 93010

== ENCOUNTER 2020-03-05 09:22 | Inpatient (IN) | payer OTHER ==
--- NOTE | 2020-03-05 09:55 | BHS.RME ---
Substance Use & Tx History - Substance Use History Alcohol Substance amount: 1 pint vodka + beers Frequency of use: Daily Substance route: Oral Date of Last Use: 03/04/20 Nicotine Substance amount: 10 cigggs Frequency of use: Daily Substance route: Smoking Date of Last Use: 03/04/20 Physical/Psych/Mental Status - Behavior General Behavior: Increased activity (restlessness, agitation) Eye Contact: Normal - Cooperativeness Cooperativeness: Cooperative - Thinking Thought Processes: Tight, Logical, Goal Directed - Physical Health Problems Is patient presently having any pain?: No Does patient presently have any injuries (include location): No Does patient currently have a fever: No Is patient : No CIWA Nausea/Vomitin-Mild Nausea/No Vomiting Muscle Tremors: 4-Moderate,w/Arms Extend Anxiety: 2 Agitation: 2 Paroxysmal Sweats: 1-Minimal Palms Moist Orientation: 0-Oriented Tacttile Disturbances: 0-None Auditory Disturbances: 0-None Visual Disturbances: 0-None Headache: 0-None Present CIWA-Ar Total Score: 10
--- NOTE | 2020-03-05 10:35 | HP ---
CIWA Score Nausea/Vomitin-Mild Nausea/No Vomiting Muscle Tremors: 4-Moderate,w/Arms Extend Anxiety: 2 Agitation: 2 Paroxysmal Sweats: 1-Minimal Palms Moist Orientation: 0-Oriented Tacttile Disturbances: 0-None Auditory Disturbances: 0-None Visual Disturbances: 0-None Headache: 0-None Present CIWA-Ar Total Score: 10 - Admission Criteria OASAS Guidelines: Admission for Medically Managed Detox: Requires at least one of the followin. CIWA greater than 12 2. Seizures within the past 24 hours 3. Delirium tremens within the past 24 hours 4. Hallucinations within the past 24 hours 5. Acute intervention needed for co occurring medical disorder 6. Acute intervention needed for co occurring psychiatric disorder 7. Severe withdrawal that cannot be handled at a lower level of care (continued vomiting, continued diarrhea, abnormal vital signs) requiring intravenous medication and/or fluids 8. Admitting History and Physical - Admission Chief Complaint: "I want to stop drinking alcohol." History of Present Illness: 54 year old male with history of alcohol dependence with withdrawals. He was seen in [facility] ED for alcoholic intoxication last night. See discharge papers. He was at [facility] from 01/24-02/06/20 and completed detox and rehab and was then sent for aftercare outpaient at [facility]. However, upon discharge and during COVID he relapsed 2 weeks after that. Alcohol: 1 pint vodka and 16 malt liquor beers daily, started at 14 and last used 03/04/20 prior to going to [facility] after blacking out. 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 Nicotine: 10 ciggs daily, started at age 14 and last smoked yesterday PMH: HTN, DM< GERD< GOUT, HLD, Obesity, Sleep Apnea Psurg: None Psych: Schizoaffective Disorder ( Zoloft and Seroquel) Lives in the [place] alone in drug infested area. Patient meets criteria for detox as he's had multiple medical problems and psychiatric comorbidities. CIWA=10 Breath: 0.000 History Source: Patient Limitations to Obtaining History: No Limitations - Past Medical History Cardiovascular: Yes: HTN, Hyperlipdemia Gastrointestinal: Yes: GERD, Peptic Ulcer Disease Psych: Yes: Addictions, Depression Rheumatology: Yes: Gout Endocrine: Yes: Diabetes Mellitus - Past Surgical History Past Surgical History: Yes: None - Smoking History Smoking history: Current every day smoker Have you smoked in the past 12 months: Yes Aproximately how many cigarettes per day: 8 - Alcohol/Substance Use Hx Alcohol Use: Yes - Social History Usual Living Arrangement: Yes: Alone Do you think of yourself as: Straight/Heterosexual ADL: Support Services Occupation: unemplyed History of Recent Travel: No Admission ROS [facility] - HPI Allergies/Adverse Reactions: Allergies Allergy/AdvReac Type Severity Reaction Status Date / Time influenza virus vaccine ts Allergy Severe Swelling Verified 01/25/20 13:08 [From Fluarix] pneumococcal vaccine Allergy Severe Swelling Verified 01/25/20 13:08 [Pneumococcal Vaccine] Exam Limitations: No Limitations - Ebola screening Have you traveled outside of the country in the last 21 days: No Have you had contact with anyone from an Ebola affected area: No Have you been sick,other than usual withdrawal symptoms: No Do you have a fever: No - Review of Systems Constitutional: No Symptoms Reported EENT: reports: No Symptoms Reported Respiratory: reports: No Symptoms reported Cardiac: reports: No Symptoms Reported GI: reports: No Symptoms Reported : reports: No Symptoms Reported Musculoskeletal: reports: No Symptoms Reported Integumentary: reports: No Symptoms Reported Neuro: reports: No Symptoms reported Endocrine: reports: No Symptoms Reported Hematology: reports: No Symptoms Reported Psychiatric: reports: Judgement Intact, Mood/Affect Appropiate, Orientated x3, Agitated, Anxious Other Systems: Reviewed and Negative Patient History - Patient Medical History Hx Anemia: No Hx Asthma: No Hx Chronic Obstructive Pulmonary Disease (COPD): No Hx Cancer: No Hx Cardiac Disorders: No Hx Congestive Heart Failure: No Hx Hypertension: Yes Hx Hypercholesterolemia: Yes Hx Pacemaker: No HX Cerebrovascular Accident: No Hx Seizures: No Hx Dementia: No Hx Diabetes: Yes Hx Gastrointestinal Disorders: Yes (ACID REFLUX) Hx Liver Disease: Yes (elevated LFTs due to alcohol) Hx Genitourinary Disorders: No Hx Sexually Transmitted Disorders: No Hx Renal Disease (ESRD): No Hx Thyroid Disease: No Hx Human Immunodeficiency Virus (HIV): No Hx Hepatitis C: No Hx Depression: Yes Hx Suicide Attempt: No Hx Bipolar Disorder: No Hx Schizophrenia: No - Patient Surgical History Past Surgical History: No Hx Neurologic Surgery: No Hx Cataract Extraction: No Hx Cardiac Surgery: No Hx Lung Surgery: No Hx Breast Surgery: No Hx Breast Biopsy: No Hx Abdominal Surgery: No Hx Appendectomy: No Hx Cholecystectomy: No Hx Genitourinary Surgery: No Hx Section: No Hx Orthopedic Surgery: No Other Surgical History: has had joint effusions drained in knees Anesthesia Reaction: No - PPD History Previous Implant?: Yes Documented Results: Negative w/proof Implanted On Prior [facility] Admission?: Yes Date: 10/30/19 Results: 0 MM PPD to be Administered?: No - Smoking Cessation Smoking history: Current every day smoker Have you smoked in the past 12 months: Yes Aproximately how many cigarettes per day: 8 Cigars Per Day: 0 Hx Chewing Tobacco Use: No Initiated information on smoking cessation: Yes 'Breaking Loose' booklet given: 03/05/20 - Substances abused Alcohol Substance route: Oral Frequency: Daily Amount used: 1 pnt vodka and 16 beers Age of first use: 14 Date of last use: 03/04/20 Admission Physical Exam S - Physical General Appearance: Yes: Obese, Tremorous, Irritable HEENTM: Yes: EOMI, Hearing grossly Normal, Normal ENT Inspection, Normocephalic, Normal Voice, GRACIELA, Pharynx Normal, Tm's normal Respiratory: Yes: Chest Non-Tender, Lungs Clear, Normal Breath Sounds, No Respiratory Distress, No Accessory Muscle Use Neck: Yes: No masses,lesions,Nodules, Supple, Trachea in good position Breast: Yes: Within Normal Limits Cardiology: Yes: Regular Rhythm, Regular Rate, S1, S2 Abdominal: Yes: Normal Bowel Sounds, Non Tender, Flat, Soft, Protuberent Genitourinary: Yes: Within Normal Limits Back: Yes: Normal Inspection Musculoskeletal: Yes: full range of Motion, Gait Steady, Pelvis Stable Extremities: Yes: Normal Capillary Refill, Normal Inspection, Normal Range of Motion, Non-Tender 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: top distribution executive II-XII NML intact, Fully Oriented, Alert, Motor Strength 5/5, Normal Mood/Affect, Normal Response Integumentary: Yes: Normal Color, Dry, Warm Lymphatic: Yes: Within Normal Limits - Diagnostic (1) Alcohol dependence with uncomplicated withdrawal Current Visit: Yes Status: Acute (2) Alcohol-induced anxiety disorder Current Visit: Yes Status: Acute (3) Alcohol-induced sleep disorder Current Visit: Yes Status: Acute (4) MDD (major depressive disorder), recurrent, severe, with psychosis Current Visit: Yes Status: Acute (5) DM2 (diabetes mellitus, type 2) Current Visit: Yes Status: Chronic (6) GERD (gastroesophageal reflux disease) Current Visit: Yes Status: Chronic Qualifiers: Esophagitis presence: without esophagitis Qualified Code(s): K21.9 - Gastro-esophageal reflux disease without esophagitis (7) Gout Current Visit: Yes Status: Chronic Qualifiers: Gout site: multiple sites Gout etiology: other secondary cause Chronicity: unspecified Qualified Code(s): 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, multiple sites (8) HTN (hypertension) Current Visit: Yes Status: Chronic Qualifiers: Hypertension type: essential hypertension Qualified Code(s): I10 - Essential (primary) hypertension (9) History of sleep apnea Current Visit: Yes Status: Chronic (10) Hyperlipidemia Current Visit: Yes Status: Chronic Qualifiers: Hyperlipidemia type: moderate mixed hyperlipidemia not requiring statin therapy Qualified Code(s): E78.2 - Mixed hyperlipidemia (11) Insomnia Current Visit: Yes Status: Chronic (12) Morbid obesity Current Visit: Yes Status: Chronic (13) Nicotine dependence Current Visit: Yes Status: Chronic Qualifiers: Nicotine product type: cigarettes Substance use status: uncomplicated Qualified Code(s): F17.210 - Nicotine dependence, cigarettes, uncomplicated Cleared for Admission [facility] - Detox or Rehab [facility] Level of Care: Medically Managed Detox Regimen/Protocol: Librium Screened but not Admitted - Documentation of Visit Screened but not Admitted: No Breathalyzer - Breathalyzer Breathalyzer: 0 Urine Drug Screen - Test Device Lot number: [id number] Expiration date: 05/10/21 - Control Is test valid?: Yes - Results Drug screen NEGATIVE: No Urine drug screen results: BZO-Benzodiazepines Inpatient Rehab Admission - Rehab Decision to Admit Inpatient rehab admission?: No
[2020-03-05] MEDS ORDERED: BISMUTH SUBSALICYLATE 262 MG/15 ML BTL PO PRN (10:39)
[2020-03-05] MEDS ORDERED: ACETAMINOPHEN 325 MG TABLET (FP) PO PRN ×2 (10:39)
[2020-03-05] MEDS ORDERED: MENTHOL/PHENOL 1 EACH UD MM PRN (10:39)
[2020-03-05] MEDS ORDERED: MAGNESIUM HYDROX 2400MG/30ML ORAL SUSPENSION 30 ML CUP PO PRN (10:39)
[2020-03-05] MEDS ORDERED: MAGNESIUM CITRATE 300 ML BOTTLE PO PRN (10:39)
[2020-03-05] MEDS ORDERED: NICOTINE POLACRILEX 2 MG GUM BUC PRN (10:39)
[2020-03-05] MEDS ORDERED: ONDANSETRON *ODT* 4 MG TABLET SL ONE (10:39)
[2020-03-05] MEDS ORDERED: MAG HYDROX/AL HYDROX/SIMETH 30 ML UNIT-DOSE CUP PO PRN (10:39)
[2020-03-05] MEDS ORDERED: chlordiazePOXIDE HCL 25 MG CAPSULE PO PRN (10:39)
[2020-03-05] MEDS ORDERED: ARTIFICIAL TEARS (POLYVINYL ALCOHOL) OPTH DROPS OU PRN (10:41)
[2020-03-05 11:26] VITALS: BMI 35.3
--- NOTE | 2020-03-05 11:56 | CONSULT ---
[facility] Psychiatric Consult - Data Date of interview: 03/05/20 Admission source: [facility] Identifying data: Mr Dixon is a 54 years old single Black male, unemployed receiving SSI, living in an SRO seeking detox treatment for alcohol Substance Abuse History: Reports history of alcohol use. Refer to addiction counselor's summary for further information Medical History: Significant for obesity, gout, arthritis, GERD, dyslipidemia, diabetes mellitus, hypertension and a history of sleep apnea. Smokes 10 cigarettes daily Psychiatric History: Patient is known for multiple previous admissions to this facility. Historical narrative remains consistent. His first psychiatric contact occured at at age 17 When his mother took him to see a psychiatrist in [place]. He said that he was diagnosed with depression, Schizophrenia and he was started on psychotropic medications. He reports multiple previous psychiatric hospitalizations at various institutions including [facility], [facility], [facility], [facility]. During his recent admission to this facility he saw selling underwriter on 01/29/20 and he was continued on Zoloft 100 mg/day ans Seroquel 400 mg/hs which were prescribed to him by Dr Amos, his primary care physician. Reports that he has been taking medications since discharged from this facility on 02/06/20. Denies previous suicidal attempt. At present, denies experiencing psychotic, manic or depressive symptoms, S/H ideations. However, reports feeling anxious and sleeping poorly Physical/Sexual Abuse/Trauma History: Denies history of abuse as a chikd or DV relationship as an adult Additional Comment: Reports history of 5 previous misdemeanor arrests on charges of drinking in public. Denies being on probation Mental Status Exam - Mental Status Exam Alert and Oriented to: Time, Place, Person Cognitive Function: Fair Patient Appearance: Well Groomed Mood: Anxious Affect: Appropriate Patient Behavior: Cooperative Speech Pattern: Clear Voice Loudness: Normal Thought Process: Intact, Goal Oriented Hallucinations: Denies Suicidal Ideation: Denies Homicidal Ideation: Denies Insight/Judgement: Poor Sleep: Poorly Appetite: Good Muscle strength/Tone: Normal Gait/Station: Normal Psychiatric Findings - Problem List ([place] 1, 2,3) (1) Schizoaffective disorder Current Visit: No Status: Chronic Qualifiers: Schizoaffective disorder type: unspecified Qualified Code(s): F25.9 - Schizoaffective disorder, unspecified (2) Alcohol-induced anxiety disorder Current Visit: Yes Status: Acute (3) Alcohol-induced sleep disorder Current Visit: Yes Status: Acute (4) Alcohol dependence with uncomplicated withdrawal Current Visit: Yes Status: Acute (5) Nicotine dependence Current Visit: Yes Status: Chronic Qualifiers: Nicotine product type: cigarettes Substance use status: uncomplicated Qualified Code(s): F17.210 - Nicotine dependence, cigarettes, uncomplicated (6) HTN (hypertension) Current Visit: Yes Status: Chronic Qualifiers: Hypertension type: essential hypertension Qualified Code(s): I10 - Essential (primary) hypertension (7) Hyperlipidemia Current Visit: Yes Status: Chronic Qualifiers: Hyperlipidemia type: moderate mixed hyperlipidemia not requiring statin therapy Qualified Code(s): E78.2 - Mixed hyperlipidemia (8) DM2 (diabetes mellitus, type 2) Current Visit: Yes Status: Chronic (9) GERD (gastroesophageal reflux disease) Current Visit: Yes Status: Chronic Qualifiers: Esophagitis presence: without esophagitis Qualified Code(s): K21.9 - Gastro-esophageal reflux disease without esophagitis (10) Gout Current Visit: Yes Status: Chronic Qualifiers: Gout site: multiple sites Gout etiology: other secondary cause Chronicity: unspecified Qualified Code(s): 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 2) Continue inpatient detoxification
[2020-03-05] MEDS: chlordiazePOXIDE HCL 25 MG CAPSULE PO SCH ×3 (12:14→22:00)
[2020-03-05] MEDS: ALLOPURINOL 100 MG TABLET (FP) PO SCH (12:14)
[2020-03-05] MEDS: metFORMIN HCL 500 MG TABLET (FP) PO SCH ×2 (12:15→17:47)
[2020-03-05] MEDS: COLCHICINE 0.6 MG CAP PO SCH (12:15)
[2020-03-05] MEDS: PRENATAL VITAMINS W/ FOLIC ACID TABLET (FP) PO SCH (12:16)
[2020-03-05] MEDS: NICOTINE 7 MG/24 HOURS TOPICAL PATCH TD SCH (12:18)
[2020-03-05] MEDS: SERTRALINE HCL 50 MG TABLET (FP) PO SCH (12:19)
[2020-03-05] MEDS ORDERED: hydrOXYzine PAMOATE 25 MG CAPSULE (FP) PO PRN (12:27)
[2020-03-05] MEDS ORDERED: hydrOXYzine PAMOATE 25 MG CAPSULE (FP) PO SCH (14:00)
[2020-03-05 14:20] LABS: HEMATOCRIT 40.5 % (35.4-49); HEMOGLOBIN 13.4 GM/dL (11.7-16.9); MCHC 33.2 g/dl (32.0-35.9); MEAN CELL VOLUME 96.5 fl (80-96); MEAN PLT VOLUME 11.5 fl (7.5-11.1); PLATELET COUNT 135 K/MM3 (134-434); RBC 4.19 M/mm3 (4.00-5.60); RDW 14.8 % (11.9-15.9); WHITE BLOOD COUNT 3.6 K/mm3 (4.0-10.0)
[2020-03-05 14:37] LABS: ALBUMIN 3.4 g/dl (3.4-5.0); BILIRUBIN,TOTAL 0.9 mg/dL (0.2-1); BLOOD UREA NITROGEN 11.4 mg/dL (7-18); CALCIUM 9.2 mg/dL (8.5-10.1); CREATININE 1.2 mg/dL (0.55-1.3); POTASSIUM 4.7 mmol/L (3.5-5.1); TOT PROT 7.1 g/dl (6.4-8.2)
[2020-03-05] MEDS: IBUPROFEN 400 MG TABLET (FP) PO PRN (17:46)
[2020-03-05] MEDS: THIAMINE HCL 100 MG TABLET (FP) PO SCH (21:56)
[2020-03-05] MEDS: QUEtiapine FUMARATE 400 MG TABLET PO SCH (21:56)
[2020-03-05] MEDS: ATORVASTATIN CA 80 MG TABLET (FP) PO SCH (21:56)
[2020-03-05] MEDS: MELATONIN 5 MG TABLETS PO SCH (21:56)
[2020-03-06] MEDS: chlordiazePOXIDE HCL 25 MG CAPSULE PO SCH ×4 (05:59→22:01)
[2020-03-06] MEDS: metFORMIN HCL 500 MG TABLET (FP) PO SCH ×2 (06:30→17:14)
[2020-03-06] MEDS: METHOCARBAMOL 500 MG TABLET PO PRN (10:15)
[2020-03-06] MEDS: IBUPROFEN 400 MG TABLET (FP) PO PRN (10:15)
[2020-03-06] MEDS: SERTRALINE HCL 50 MG TABLET (FP) PO SCH (10:16)
[2020-03-06] MEDS: ALLOPURINOL 100 MG TABLET (FP) PO SCH (10:16)
[2020-03-06] MEDS: PRENATAL VITAMINS W/ FOLIC ACID TABLET (FP) PO SCH (10:18)
[2020-03-06] MEDS: NICOTINE 7 MG/24 HOURS TOPICAL PATCH TD SCH (10:18)
[2020-03-06] MEDS: COLCHICINE 0.6 MG CAP PO SCH (10:43)
[2020-03-06] MEDS: LIDOCAINE 5% TOPICAL PATCH TP SCH (11:06)
[2020-03-06] MEDS: VITAMINS A AND D TOPICAL OINTMENT 60 GM TUBE TP SCH ×2 (12:40→18:04)
--- NOTE | 2020-03-06 17:06 | PN ---
S CIWA - CIWA Score Nausea/Vomitin-No Nausea/No Vomiting Muscle Tremors: None Anxiety: 3 Agitation: 2 Paroxysmal Sweats: No Perspiration Orientation: 0-Oriented Tacttile Disturbances: 2-Mild Itch/Numbness/Burn Auditory Disturbances: 1-Very Mild Visual Disturbances: 0-None Headache: 0-None Present CIWA-Ar Total Score: 8 BHS Progress Note (SOAP) Subjective: Body Aches, Anxious, Fatigue. Objective: Patient A & O X 3, Observed Ambulating on Detox Unit Unassisted. In No Acute Distress. 03/06/20 17:05 Vital Signs Temperature 97.3 F L 03/06/20 13:10 Pulse Rate 86 03/06/20 13:10 Respiratory Rate 17 03/06/20 13:10 Blood Pressure 143/90 03/06/20 13:10 O2 Sat by Pulse Oximetry (%) 97 03/06/20 13:10 Laboratory Tests 03/05/20 03/05/20 03/05/20 10:30 10:30 10:30 WBC 3.6 L RBC 4.19 Hgb 13.4 Hct 40.5 MCV 96.5 H MCH 32.0 MCHC 33.2 RDW 14.8 Plt Count 135 D MPV 11.5 H Sodium 142 Potassium 4.7 Chloride 108 H Carbon Dioxide 27 Anion Gap 7 L BUN 11.4 Creatinine 1.2 Est GFR (CKD-EPI)AfAm 77.88 Est GFR (CKD-EPI)NonAf 67.19 POC Glucometer Random Glucose 165 H Calcium 9.2 Total Bilirubin 0.9 AST 101 H ALT 73 H Alkaline Phosphatase 85 Total Protein 7.1 Albumin 3.4 Syphilis Serology Non-reactive 03/05/20 03/05/20 03/06/20 11:29 16:39 05:58 WBC RBC Hgb Hct MCV MCH MCHC RDW Plt Count MPV Sodium Potassium Chloride Carbon Dioxide Anion Gap BUN Creatinine Est GFR (CKD-EPI)AfAm Est GFR (CKD-EPI)NonAf POC Glucometer 131 129 148 Random Glucose Calcium Total Bilirubin AST ALT Alkaline Phosphatase Total Protein Albumin Syphilis Serology 03/06/20 16:43 WBC RBC Hgb Hct MCV MCH MCHC RDW Plt Count MPV Sodium Potassium Chloride Carbon Dioxide Anion Gap BUN Creatinine Est GFR (CKD-EPI)AfAm Est GFR (CKD-EPI)NonAf POC Glucometer 144 Random Glucose Calcium Total Bilirubin AST ALT Alkaline Phosphatase Total Protein Albumin Syphilis Serology Lab Results Noted. Assessment: 03/06/20 17:06 WITHDRAWAL SYMPTOMS. LEUKOPENIA. ELEVATED AST LEVEL. ELEVATED ALT LEVEL. Plan: Continue Detox. Increase Daily Oral Water Intake.
[2020-03-06] MEDS ORDERED: LIDOCAINE PATCH REMOVAL MC SCH (22:00)
[2020-03-06] MEDS: QUEtiapine FUMARATE 400 MG TABLET PO SCH (22:01)
[2020-03-06] MEDS: ATORVASTATIN CA 80 MG TABLET (FP) PO SCH (22:01)
[2020-03-06] MEDS: THIAMINE HCL 100 MG TABLET (FP) PO SCH (22:01)
[2020-03-06] MEDS: MELATONIN 5 MG TABLETS PO SCH (22:04)
[2020-03-07] MEDS: IBUPROFEN 400 MG TABLET (FP) PO PRN (04:04)
[2020-03-07] MEDS: VITAMINS A AND D TOPICAL OINTMENT 60 GM TUBE TP SCH ×2 (04:08→05:51)
[2020-03-07] MEDS: chlordiazePOXIDE HCL 25 MG CAPSULE PO SCH ×2 (05:50→10:40)
[2020-03-07] MEDS: METHOCARBAMOL 500 MG TABLET PO PRN (05:53)
[2020-03-07] MEDS: metFORMIN HCL 500 MG TABLET (FP) PO SCH (07:09)
[2020-03-07 10:00] VITALS: BP 120/79; PULSE 82; TEMP 97.3
[2020-03-07] MEDS: ALLOPURINOL 100 MG TABLET (FP) PO SCH (10:40)
[2020-03-07] MEDS: SERTRALINE HCL 50 MG TABLET (FP) PO SCH (10:40)
[2020-03-07] MEDS: NICOTINE 7 MG/24 HOURS TOPICAL PATCH TD SCH (10:41)
[2020-03-07] MEDS: COLCHICINE 0.6 MG CAP PO SCH (10:41)
[2020-03-07] MEDS: PRENATAL VITAMINS W/ FOLIC ACID TABLET (FP) PO SCH (10:41)
[2020-03-07] MEDS: LIDOCAINE 5% TOPICAL PATCH TP SCH (10:41)
--- NOTE | 2020-03-07 17:24 | DS ---
[facility] Detox Discharge Summary Admission Date: 03/05/20 - History Present History: Alcohol Dependence Additional Comments: Patient demanded to leave AMA despite encouragement from staff to complete detox. Patient stated he doesn't care and that he just have to leave. Instructed to follow up with his PCP within 3 days and to call 911 if sick or withdrawal sxs. Patient left in stable condition, told junior copywriter he was feeling ok and denies any withdrawal sxs. Pertinent Past History: DM HTN GERD GOUT HLD Obesity - Physical Exam Results Vital Signs: Vital Signs Temperature 97.3 F L 03/07/20 09:02 Pulse Rate 82 03/07/20 09:02 Respiratory Rate 20 03/07/20 09:02 Blood Pressure 120/79 03/07/20 09:02 O2 Sat by Pulse Oximetry (%) 99 03/07/20 05:37 Pertinent Admission Physical Exam Findings: Withdrawal sxs Laboratory Tests 03/05/20 03/05/20 03/05/20 10:30 10:30 10:30 WBC 3.6 L RBC 4.19 Hgb 13.4 Hct 40.5 MCV 96.5 H MCH 32.0 MCHC 33.2 RDW 14.8 Plt Count 135 D MPV 11.5 H Sodium 142 Potassium 4.7 Chloride 108 H Carbon Dioxide 27 Anion Gap 7 L BUN 11.4 Creatinine 1.2 Est GFR (CKD-EPI)AfAm 77.88 Est GFR (CKD-EPI)NonAf 67.19 POC Glucometer Random Glucose 165 H Calcium 9.2 Total Bilirubin 0.9 AST 101 H ALT 73 H Alkaline Phosphatase 85 Total Protein 7.1 Albumin 3.4 Syphilis Serology Non-reactive COVID-19 ([place]) 03/05/20 03/05/20 03/05/20 11:29 11:50 16:39 WBC RBC Hgb Hct MCV MCH MCHC RDW Plt Count MPV Sodium Potassium Chloride Carbon Dioxide Anion Gap BUN Creatinine Est GFR (CKD-EPI)AfAm Est GFR (CKD-EPI)NonAf POC Glucometer 131 129 Random Glucose Calcium Total Bilirubin AST ALT Alkaline Phosphatase Total Protein Albumin Syphilis Serology COVID-19 ([place]) Not detected 03/06/20 03/06/20 03/07/20 05:58 16:43 05:49 WBC RBC Hgb Hct MCV MCH MCHC RDW Plt Count MPV Sodium Potassium Chloride Carbon Dioxide Anion Gap BUN Creatinine Est GFR (CKD-EPI)AfAm Est GFR (CKD-EPI)NonAf POC Glucometer 148 144 114 Random Glucose Calcium Total Bilirubin AST ALT Alkaline Phosphatase Total Protein Albumin Syphilis Serology COVID-19 ([place]) Labs reviewed: elevated LFTs most likely due to alcoholism, instructed to follow up with PCP - Medication Discharge Medications: Ambulatory Orders Sertraline HCl [Zoloft] 100 mg PO DAILY #30 tablet 11/04/18 Allopurinol [Zyloprim -] 200 mg PO DAILY #14 tablet 02/05/20 Atorvastatin Ca [Lipitor] 80 mg PO HS #14 tablet 02/05/20 Colchicine [Colcrys] 0.6 mg PO DAILY #14 cap 02/05/20 Folic Acid - 1 mg PO DAILY #14 tablet 02/05/20 Metformin HCl [Glucophage] 500 mg PO BID #30 tablet 02/05/20 Metoprolol Succinate 100 mg PO BID #30 tab.sr 02/05/20 Polyvinyl Alcohol [Artificial Tears] 1 drop OU TID PRN 30 Days #1 bottle 02/05/20 Quetiapine Fumarate [Seroquel -] 400 mg PO HS #30 tablet 02/05/20 Thiamine HCl [B-1] 100 mg PO DAILY #14 tablet 02/05/20 Cyclobenzaprine HCl [Flexeril -] 5 mg PO TID 03/05/20 Multivitamins [Tab-A-Vit -] 1 tab PO DAILY 03/05/20 Naproxen [Naprosyn] 500 mg PO BID 03/05/20 - Diagnosis (1) Alcohol dependence with uncomplicated withdrawal Status: Acute (2) DM2 (diabetes mellitus, type 2) Status: Chronic (3) GERD (gastroesophageal reflux disease) Status: Chronic Qualifiers: Esophagitis presence: without esophagitis Qualified Code(s): K21.9 - Gastro-esophageal reflux disease without esophagitis (4) Gout Status: Chronic Qualifiers: Gout site: multiple sites Gout etiology: other secondary cause Chronicity: unspecified Qualified Code(s): 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, multiple sites (5) HTN (hypertension) Status: Chronic Qualifiers: Hypertension type: essential hypertension Qualified Code(s): I10 - Essential (primary) hypertension (6) History of sleep apnea Status: Chronic (7) Hyperlipidemia Status: Chronic Qualifiers: Hyperlipidemia type: moderate mixed hyperlipidemia not requiring statin therapy Qualified Code(s): E78.2 - Mixed hyperlipidemia (8) Morbid obesity Status: Chronic (9) Nicotine dependence Status: Chronic Qualifiers: Nicotine product type: cigarettes Substance use status: uncomplicated Qualified Code(s): F17.210 - Nicotine dependence, cigarettes, uncomplicated - AMA Did Patient Leave Against Medical Advice: Yes (Follow up with PCP within 3 days)
[2020-03-08] MEDS ORDERED: chlordiazePOXIDE HCL 10 MG CAPSULE PO PRN
[2020-03-08] MEDS ORDERED: chlordiazePOXIDE HCL 10 MG CAPSULE PO SCH (05:00)
[2020-03-09] MEDS ORDERED: chlordiazePOXIDE HCL 10 MG CAPSULE PO SCH (05:00)
[2020-03-10] MEDS ORDERED: chlordiazePOXIDE HCL 10 MG CAPSULE PO ONE (05:00)
== END 2020-03-07 10:55 | disposition left against medical advice (07) | DRG 770 ==
LOC: YASAS 09:22 → Y6N 10:57
PROVIDERS: ADMIT Allergy & Immunology; ATTEND Allergy & Immunology
PROC: HZ2ZZZZ Detoxification Services for Substance Abuse Treatment (ICD-10-PCS; principal; 2020-03-05)
DX: F10.230 Alcohol dependence with withdrawal, uncomplicated (principal); F10.280 Alcohol dependence with alcohol-induced anxiety disorder; F10.282 Alcohol dependence with alcohol-induced sleep disorder; F17.210 Nicotine dependence, cigarettes, uncomplicated; F25.9 Schizoaffective disorder, unspecified; F33.3 Major depressive disorder, recurrent, severe with psychotic symptoms; I10 Essential (primary) hypertension; E11.9 Type 2 diabetes mellitus without complications; K21.9 Gastro-esophageal reflux disease without esophagitis; E78.2 Mixed hyperlipidemia; E66.01 Morbid (severe) obesity due to excess calories; Z68.35 Body mass index [BMI] 35.0-35.9, adult; R74.0 Nonspecific elevation of levels of transaminase and lactic acid dehydrogenase [LDH]; G47.00 Insomnia, unspecified; D72.819 Decreased white blood cell count, unspecified; G47.30 Sleep apnea, unspecified; M10.49 Other secondary gout, multiple sites; Z79.84 Long term (current) use of oral hypoglycemic drugs; Z88.8 Allergy status to other drugs, medicaments and biological substances
CPT/HCPCS: 36415; 80053; 82962; 85027; 86780; U0003

== ENCOUNTER 2020-05-13 09:30 | Inpatient (IN) | payer OTHER ==
--- NOTE | 2020-05-13 09:58 | BHS.RME ---
Substance Use & Tx History - Substance Use History Alcohol Substance amount: 1 pint vodka + 16 16oz beers Frequency of use: Daily Substance route: Oral Date of Last Use: 05/12/20 Nicotine Substance amount: 6 ciggs Frequency of use: Daily Substance route: Smoking Date of Last Use: 05/13/20 - Last Treatment Date of last treatment: 03/05-03/07/20 signed ama Treatment type: Substance Use Disorder (TD) Where was last treatment: Detox Physical/Psych/Mental Status - Behavior General Behavior: Increased activity (restlessness, agitation) Eye Contact: Normal - Cooperativeness Cooperativeness: Cooperative - Thinking Thought Processes: Tight, Logical, Goal Directed - Physical Health Problems Is patient presently having any pain?: No Does patient presently have any injuries (include location): No Does patient currently have a fever: No Is patient : No CIWA Nausea/Vomitin-Mild Nausea/No Vomiting Muscle Tremors: 4-Moderate,w/Arms Extend Anxiety: 2 Agitation: 3 Paroxysmal Sweats: 5 Orientation: 1-Uncertain about Date Tacttile Disturbances: 0-None Auditory Disturbances: 0-None Visual Disturbances: 1-Very Mild Sensitivity Headache: 0-None Present CIWA-Ar Total Score: 17
[2020-05-13 10:20] VITALS: BMI 36.3
--- NOTE | 2020-05-13 10:28 | HP ---
CIWA Score Nausea/Vomitin-Mild Nausea/No Vomiting Muscle Tremors: 4-Moderate,w/Arms Extend Anxiety: 2 Agitation: 3 Paroxysmal Sweats: 5 Orientation: 1-Uncertain about Date Tacttile Disturbances: 0-None Auditory Disturbances: 0-None Visual Disturbances: 1-Very Mild Sensitivity Headache: 0-None Present CIWA-Ar Total Score: 17 - Admission Criteria OASAS Guidelines: Admission for Medically Managed Detox: Requires at least one of the followin. CIWA greater than 12 2. Seizures within the past 24 hours 3. Delirium tremens within the past 24 hours 4. Hallucinations within the past 24 hours 5. Acute intervention needed for co occurring medical disorder 6. Acute intervention needed for co occurring psychiatric disorder 7. Severe withdrawal that cannot be handled at a lower level of care (continued vomiting, continued diarrhea, abnormal vital signs) requiring intravenous medication and/or fluids 8. Admitting History and Physical - Past Medical History Cardiovascular: Yes: HTN, Hyperlipdemia Gastrointestinal: Yes: GERD, Peptic Ulcer Disease Psych: Yes: Addictions, Depression Rheumatology: Yes: Gout Endocrine: Yes: Diabetes Mellitus - Past Surgical History Past Surgical History: Yes: None - Smoking History Smoking history: Current every day smoker Have you smoked in the past 12 months: Yes Aproximately how many cigarettes per day: 10 - Alcohol/Substance Use Hx Alcohol Use: Yes - Social History ADL: Support Services Occupation: unemplyed History of Recent Travel: No Admission ROS [facility] Chief Complaint: " I need help to stop drinking. I will sign contract to complete detox this time." Allergies/Adverse Reactions: Allergies Allergy/AdvReac Type Severity Reaction Status Date / Time influenza virus vaccine ts Allergy Severe Swelling Verified 03/05/20 11:00 [From Fluarix] pneumococcal vaccine Allergy Severe Swelling Verified 03/05/20 11:00 [Pneumococcal Vaccine] History of Present Illness: 54 year old male with history of alcohol dependence with withdrawal. He was last at [facility] from 03/05-03/07/20 and signed out against medical advice and then attempted to be re-admitted on 04/05/20 but not admitted due to his prior history. However, he is serious about completing detox and then go to rehab this time. PMH: HLD, DM, HTN, Gout, Abdominal Hernia, Eczema Psurg: None Psych: Depression on Zoloft and Insominia on Seroquel He is homeles and in retirement, he has no legal issues pending. IVORY=0.000 CIWA=17 Urine Tox: BZO states someone gave him something. Patient meets criteria for detox as he has multiple medical and psychiatric co- morbidity and multiple blackouts with falls, last on 1 week ago. Exam Limitations: No Limitations - Ebola screening Have you traveled outside of the country in the last 21 days: No Have you had contact with anyone from an Ebola affected area: No Have you been sick,other than usual withdrawal symptoms: No Do you have a fever: No - Review of Systems Constitutional: Chills EENT: reports: No Symptoms Reported Respiratory: reports: No Symptoms reported Cardiac: reports: No Symptoms Reported GI: reports: No Symptoms Reported : reports: No Symptoms Reported Musculoskeletal: reports: No Symptoms Reported, Other Integumentary: reports: No Symptoms Reported Neuro: reports: No Symptoms reported, Headache, Tremors Endocrine: reports: No Symptoms Reported Hematology: reports: No Symptoms Reported Psychiatric: reports: Judgement Intact, Orientated x3, Agitated, Anxious Other Systems: Reviewed and Negative Patient History - Patient Medical History Hx Anemia: No Hx Asthma: No Hx Chronic Obstructive Pulmonary Disease (COPD): No Hx Cancer: No Hx Cardiac Disorders: Yes (HLD) Hx Congestive Heart Failure: No Hx Hypertension: Yes Hx Hypercholesterolemia: Yes Hx Pacemaker: No HX Cerebrovascular Accident: No Hx Seizures: No Hx Dementia: No Hx Diabetes: Yes (BGM 131) Hx Gastrointestinal Disorders: Yes (GERDS) Hx Liver Disease: Yes (elevated LFTs due to alcohol) Hx Genitourinary Disorders: No Hx Sexually Transmitted Disorders: No Hx Renal Disease (ESRD): No Hx Thyroid Disease: No Hx Human Immunodeficiency Virus (HIV): No Hx Hepatitis C: No Hx Depression: Yes Hx Suicide Attempt: No Hx Bipolar Disorder: No Hx Schizophrenia: Yes - Patient Surgical History Past Surgical History: No Hx Neurologic Surgery: No Hx Cataract Extraction: No Hx Cardiac Surgery: No Hx Lung Surgery: No Hx Breast Surgery: No Hx Breast Biopsy: No Hx Abdominal Surgery: No Hx Appendectomy: No Hx Cholecystectomy: No Hx Genitourinary Surgery: No Hx Section: No Hx Orthopedic Surgery: No Other Surgical History: has had joint effusions drained in knees Anesthesia Reaction: No - PPD History Previous Implant?: Yes Documented Results: Negative w/proof Implanted On Prior [facility] Admission?: Yes Date: 10/30/19 Results: 0 MM PPD to be Administered?: No - Smoking Cessation Smoking history: Current every day smoker Have you smoked in the past 12 months: Yes Aproximately how many cigarettes per day: 10 Cigars Per Day: 0 Hx Chewing Tobacco Use: No Initiated information on smoking cessation: Yes 'Breaking Loose' booklet given: 05/13/20 - Substances abused Alcohol Other (specify): 1 pint vodka + 16 16 oz beers Substance route: Oral Frequency: Daily Amount used: see above Age of first use: 14 Date of last use: 05/12/20 Admission Physical Exam S - Vital Signs Vital Signs: Vital Signs - 24 hr 05/13/20 10:19 Temperature 97.6 F Pulse Rate 102 H Respiratory 16 Rate Blood Pressure 162/101 H Cleared for Admission [facility] - Detox or Rehab [facility] Level of Care: Medically Managed Detox Regimen/Protocol: Librium Claeared for Rehab Admission: No Screened but not Admitted - Documentation of Visit Screened but not Admitted: No Breathalyzer - Breathalyzer Breathalyzer: 0 Vital Signs - Vital Signs Vital signs refused: No Temperature: 97.6 F Pulse Rate: 102 Respiratory Rate: 13 Blood Pressure: 162/101 BP Location: Left Arm Blood Pressure position: Sitting - Height Height: 5 ft 10 in - Weight Weight: 253 lb Weight measurement method: Standing scale - BMI Body Mass Index (BMI): 36.3 - Bowel Function Bowel Movement: No Urine Drug Screen - Test Device Lot number: [id number] Expiration date: 12/16/21 - Control Is test valid?: Yes - Results Drug screen NEGATIVE: No Urine drug screen results: BZO-Benzodiazepines Inpatient Rehab Admission - Rehab Decision to Admit Inpatient rehab admission?: No
[2020-05-13] MEDS ORDERED: METHOCARBAMOL 500 MG TABLET PO PRN (10:30)
[2020-05-13] MEDS ORDERED: MENTHOL/PHENOL 1 EACH UD MM PRN (10:30)
[2020-05-13] MEDS ORDERED: MAGNESIUM HYDROX 2400MG/30ML ORAL SUSPENSION 30 ML CUP PO PRN (10:30)
[2020-05-13] MEDS ORDERED: chlordiazePOXIDE HCL 25 MG CAPSULE PO PRN (10:30)
[2020-05-13] MEDS ORDERED: MAGNESIUM CITRATE 300 ML BOTTLE PO PRN (10:30)
[2020-05-13] MEDS ORDERED: MAG HYDROX/AL HYDROX/SIMETH 30 ML UNIT-DOSE CUP PO PRN (10:30)
[2020-05-13] MEDS ORDERED: NICOTINE POLACRILEX 2 MG GUM BUC PRN (10:30)
[2020-05-13] MEDS ORDERED: ACETAMINOPHEN 325 MG TABLET (FP) PO PRN ×2 (10:30)
[2020-05-13] MEDS ORDERED: BISMUTH SUBSALICYLATE 524 MG/30 ML UD PO PRN (10:30)
[2020-05-13] MEDS ORDERED: ARTIFICIAL TEARS (POLYVINYL ALCOHOL) OPTH DROPS OU PRN (10:32)
--- NOTE | 2020-05-13 11:36 | CONSULT ---
[facility] Psychiatric Consult - Data Date of interview: 05/13/20 Admission source: Self-referred Identifying data: Mr Dixon is a 54 years old single Black male, unemployed receiving SSI, living in an SRO seeking detox treatment for alcohol Substance Abuse History: Reports history of alcohol use. Refer to addiction counselor's summary for further information Medical History: Significant for obesity, gout, arthritis, GERD, dyslipidemia, diabetes mellitus, hypertension and a history of sleep apnea. Smokes 10 cigarettes daily Psychiatric History: Patient is known for multiple previous admissions to this facility. Historical narrative remains consistent. His first psychiatric contact occured at at age 17 when his mother took him to see a psychiatrist in [place]. He said that he was diagnosed with depression, Schizophrenia and he was started on psychotropic medications. He reports multiple previous psychiatric hospitalizations at various institutions including [facility], [facility]. During his recent admission to this facility he saw designer writer on 03/05/20 and he was continued on Zoloft 100 mg/day and Seroquel 400 mg/hs which were prescribed to him by Dr Amos, his primary care physician. Reports that he has been taking medications since discharged from this facility on 03/07/20. Denies previous suicidal attempt. At present, denies experiencing psychotic, manic symptoms, S/H ideations. However, reports feeling depressed, anxious and sleeping poorly Physical/Sexual Abuse/Trauma History: Denies history of abuse as a child or DV relationship as an adult Additional Comment: Reports history of 5 previous misdemeanor arrests on charges of drinking in public. Denies being on probation Mental Status Exam - Mental Status Exam Alert and Oriented to: Time, Place, Person Cognitive Function: Fair Patient Appearance: Well Groomed Mood: Depressed, Anxious Affect: Appropriate Patient Behavior: Cooperative Speech Pattern: Clear Voice Loudness: Normal Thought Process: Intact, Goal Oriented Thought Disorder: Not Present Hallucinations: Denies Suicidal Ideation: Denies Homicidal Ideation: Denies Insight/Judgement: Poor Sleep: Poorly Appetite: Good Muscle strength/Tone: Normal Gait/Station: Normal Psychiatric Findings - Problem List ([place] 1, 2,3) (1) Schizoaffective disorder Current Visit: No Status: Chronic Qualifiers: Schizoaffective disorder type: unspecified Qualified Code(s): F25.9 - Schizoaffective disorder, unspecified (2) Alcohol-induced mood disorder Current Visit: Yes Status: Acute (3) Alcohol-induced sleep disorder Current Visit: No Status: Acute (4) Alcohol dependence with uncomplicated withdrawal Current Visit: No Status: Acute (5) Nicotine dependence Current Visit: No Status: Chronic Qualifiers: Nicotine product type: cigarettes Substance use status: uncomplicated Qualified Code(s): F17.210 - Nicotine dependence, cigarettes, uncomplicated (6) HTN (hypertension) Current Visit: No Status: Chronic Qualifiers: Hypertension type: essential hypertension Qualified Code(s): I10 - Essential (primary) hypertension (7) Hyperlipidemia Current Visit: No Status: Chronic Qualifiers: Hyperlipidemia type: moderate mixed hyperlipidemia not requiring statin therapy Qualified Code(s): E78.2 - Mixed hyperlipidemia (8) Sleep apnea Current Visit: No Status: Chronic (9) GERD (gastroesophageal reflux disease) Current Visit: No Status: Chronic Qualifiers: Esophagitis presence: without esophagitis Qualified Code(s): K21.9 - Gastro-esophageal reflux disease without esophagitis (10) Gout Current Visit: No Status: Chronic Qualifiers: Gout site: multiple sites Gout etiology: other secondary cause Chronicity: unspecified Qualified Code(s): 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 2) Continue inpatient detoxification
[2020-05-13] MEDS: NICOTINE 7 MG/24 HOURS TOPICAL PATCH TD SCH (11:40)
[2020-05-13] MEDS: chlordiazePOXIDE HCL 25 MG CAPSULE PO SCH ×3 (11:40→22:51)
[2020-05-13] MEDS: IBUPROFEN 400 MG TABLET (FP) PO PRN (11:44)
[2020-05-13] MEDS ORDERED: ONDANSETRON *ODT* 4 MG TABLET SL ONE (11:45)
[2020-05-13] MEDS: PRENATAL VITAMINS W/ FOLIC ACID TABLET (FP) PO SCH (12:22)
[2020-05-13] MEDS: hydrOXYzine PAMOATE 25 MG CAPSULE (FP) PO SCH ×3 (13:49→22:52)
[2020-05-13 14:50] LABS: HEMATOCRIT 39.9 % (35.4-49); HEMOGLOBIN 13.5 GM/dL (11.7-16.9); MCH 33.1 pg (25.7-33.7); MCHC 33.8 g/dl (32.0-35.9); MEAN CELL VOLUME 97.9 fl (80-96); PLATELET COUNT 132 K/MM3 (134-434); RBC 4.07 M/mm3 (4.00-5.60); RDW 14.1 % (11.9-15.9); WHITE BLOOD COUNT 3.4 K/mm3 (4.0-10.0)
[2020-05-13 15:02] LABS: ALBUMIN 3.6 g/dl (3.4-5.0); BILIRUBIN,TOTAL 0.8 mg/dL (0.2-1); BLOOD UREA NITROGEN 10.6 mg/dL (7-18); CALCIUM 9.4 mg/dL (8.5-10.1); CREATININE 1.1 mg/dL (0.55-1.3); POTASSIUM 4.8 mmol/L (3.5-5.1); TOT PROT 7.4 g/dl (6.4-8.2)
[2020-05-13] MEDS: metFORMIN HCL 500 MG TABLET (FP) PO SCH (18:19)
[2020-05-13] MEDS: ATORVASTATIN CA 80 MG TABLET (FP) PO SCH (22:52)
[2020-05-13] MEDS: THIAMINE HCL 100 MG TABLET (FP) PO SCH (22:52)
[2020-05-13] MEDS: MELATONIN 5 MG TABLETS PO SCH (22:52)
[2020-05-13] MEDS: QUEtiapine FUMARATE 400 MG TABLET PO SCH (22:52)
[2020-05-14] MEDS: chlordiazePOXIDE HCL 25 MG CAPSULE PO SCH ×4 (07:58→22:42)
[2020-05-14] MEDS: hydrOXYzine PAMOATE 25 MG CAPSULE (FP) PO SCH ×5 (07:59→22:41)
[2020-05-14] MEDS: metFORMIN HCL 500 MG TABLET (FP) PO SCH ×2 (08:25→17:48)
[2020-05-14] MEDS: PRENATAL VITAMINS W/ FOLIC ACID TABLET (FP) PO SCH (10:47)
[2020-05-14] MEDS: ALLOPURINOL 100 MG TABLET (FP) PO SCH (10:47)
[2020-05-14] MEDS: SERTRALINE HCL 50 MG TABLET (FP) PO SCH (10:47)
[2020-05-14] MEDS: COLCHICINE 0.6 MG CAP PO SCH (10:48)
[2020-05-14] MEDS: NICOTINE 7 MG/24 HOURS TOPICAL PATCH TD SCH (10:48)
--- NOTE | 2020-05-14 16:32 | PN ---
S CIWA - CIWA Score Nausea/Vomitin-Mild Nausea/No Vomiting Muscle Tremors: 2 Anxiety: 2 Agitation: 2 Paroxysmal Sweats: 1-Minimal Palms Moist Orientation: 0-Oriented Tacttile Disturbances: 1-Very Mild Itch/Numbness Auditory Disturbances: 0-None Visual Disturbances: 0-None Headache: 2-Mild CIWA-Ar Total Score: 11 S Progress Note (SOAP) Subjective: alert,irritable,anxious,interrupted sleep,tremor,pain in the body and ba ck,nausea Objective: 05/14/20 16:31 Vital Signs Temperature 97.7 F 05/14/20 12:40 Pulse Rate 94 H 05/14/20 12:40 Respiratory Rate 20 05/14/20 12:40 Blood Pressure 147/95 05/14/20 12:40 O2 Sat by Pulse Oximetry (%) 98 05/14/20 12:40 Laboratory Last Values WBC 3.4 K/mm3 (4.0-10.0) L 05/13/20 10:45 RBC 4.07 M/mm3 (4.00-5.60) 05/13/20 10:45 Hgb 13.5 GM/dL (11.7-16.9) 05/13/20 10:45 Hct 39.9 % (35.4-49) 05/13/20 10:45 MCV 97.9 fl (80-96) H 05/13/20 10:45 MCH 33.1 pg (25.7-33.7) 05/13/20 10:45 MCHC 33.8 g/dl (32.0-35.9) 05/13/20 10:45 RDW 14.1 % (11.9-15.9) 05/13/20 10:45 Plt Count 132 K/MM3 (134-434) L 05/13/20 10:45 MPV 11.0 fl (7.5-11.1) 05/13/20 10:45 Sodium 143 mmol/L (136-145) 05/13/20 10:45 Potassium 4.8 mmol/L (3.5-5.1) 05/13/20 10:45 Chloride 108 mmol/L (98-107) H 05/13/20 10:45 Carbon Dioxide 31 mmol/L (21-32) 05/13/20 10:45 Anion Gap 3 MMOL/L (8-16) L 05/13/20 10:45 BUN 10.6 mg/dL (7-18) 05/13/20 10:45 Creatinine 1.1 mg/dL (0.55-1.3) 05/13/20 10:45 Est GFR (CKD-EPI)AfAm 86.52 05/13/20 10:45 Est GFR (CKD-EPI)NonAf 74.65 05/13/20 10:45 POC Glucometer 127 UNITS (80-120) 05/14/20 07:44 Random Glucose 140 mg/dL (74-106) H 05/13/20 10:45 Calcium 9.4 mg/dL (8.5-10.1) 05/13/20 10:45 Total Bilirubin 0.8 mg/dL (0.2-1) 05/13/20 10:45 AST 93 U/L (15-37) H 05/13/20 10:45 ALT 65 U/L (13-61) H 05/13/20 10:45 Alkaline Phosphatase 114 U/L (45-117) 05/13/20 10:45 Total Protein 7.4 g/dl (6.4-8.2) 05/13/20 10:45 Albumin 3.6 g/dl (3.4-5.0) 05/13/20 10:45 Syphilis Serology Non-reactive (NONREACTIVE) 05/13/20 10:45 COVID-19 ([facility]EN[facility]) Not detected (Not Detected) 05/13/20 11:45 Assessment: 05/14/20 16:32 withdrawal symptom Plan: continue detox librium regimen,bgm monitoring ,metfomin 500 mgs po bidac,hydration
[2020-05-14] MEDS: IBUPROFEN 400 MG TABLET (FP) PO PRN (17:48)
[2020-05-14] MEDS: QUEtiapine FUMARATE 400 MG TABLET PO SCH (22:41)
[2020-05-14] MEDS: MELATONIN 5 MG TABLETS PO SCH (22:41)
[2020-05-14] MEDS: THIAMINE HCL 100 MG TABLET (FP) PO SCH (22:41)
[2020-05-14] MEDS: ATORVASTATIN CA 80 MG TABLET (FP) PO SCH (22:41)
[2020-05-15] MEDS: chlordiazePOXIDE HCL 25 MG CAPSULE PO SCH ×2 (05:10→10:45)
[2020-05-15] MEDS: hydrOXYzine PAMOATE 25 MG CAPSULE (FP) PO SCH ×2 (05:10→10:42)
[2020-05-15] MEDS: metFORMIN HCL 500 MG TABLET (FP) PO SCH (08:07)
[2020-05-15] MEDS: PRENATAL VITAMINS W/ FOLIC ACID TABLET (FP) PO SCH (10:41)
[2020-05-15] MEDS: ALLOPURINOL 100 MG TABLET (FP) PO SCH (10:42)
[2020-05-15] MEDS: COLCHICINE 0.6 MG CAP PO SCH (10:42)
[2020-05-15] MEDS: SERTRALINE HCL 50 MG TABLET (FP) PO SCH (10:42)
[2020-05-15] MEDS: NICOTINE 7 MG/24 HOURS TOPICAL PATCH TD SCH (10:43)
--- NOTE | 2020-05-15 11:50 | PN ---
S CIWA - CIWA Score Nausea/Vomitin-No Nausea/No Vomiting Muscle Tremors: None Anxiety: 3 Agitation: 0-Normal Activity Paroxysmal Sweats: 3 Orientation: 0-Oriented Tacttile Disturbances: 0-None Auditory Disturbances: 0-None Visual Disturbances: 0-None Headache: 2-Mild CIWA-Ar Total Score: 8 BHS Progress Note (SOAP) Subjective: c/o sweats, anxiety, and headache. Objective: 05/15/20 11:49 Vital Signs 05/15/20 05/15/20 06:24 09:08 Temperature 97.2 F L 98.8 F Pulse Rate 79 80 Respiratory 18 18 Rate Blood Pressure 132/88 150/95 O2 Sat by Pulse 97 Oximetry (%) Laboratory Last Values WBC 3.4 K/mm3 (4.0-10.0) L 05/13/20 10:45 RBC 4.07 M/mm3 (4.00-5.60) 05/13/20 10:45 Hgb 13.5 GM/dL (11.7-16.9) 05/13/20 10:45 Hct 39.9 % (35.4-49) 05/13/20 10:45 MCV 97.9 fl (80-96) H 05/13/20 10:45 MCH 33.1 pg (25.7-33.7) 05/13/20 10:45 MCHC 33.8 g/dl (32.0-35.9) 05/13/20 10:45 RDW 14.1 % (11.9-15.9) 05/13/20 10:45 Plt Count 132 K/MM3 (134-434) L 05/13/20 10:45 MPV 11.0 fl (7.5-11.1) 05/13/20 10:45 Sodium 143 mmol/L (136-145) 05/13/20 10:45 Potassium 4.8 mmol/L (3.5-5.1) 05/13/20 10:45 Chloride 108 mmol/L (98-107) H 05/13/20 10:45 Carbon Dioxide 31 mmol/L (21-32) 05/13/20 10:45 Anion Gap 3 MMOL/L (8-16) L 05/13/20 10:45 BUN 10.6 mg/dL (7-18) 05/13/20 10:45 Creatinine 1.1 mg/dL (0.55-1.3) 05/13/20 10:45 Est GFR (CKD-EPI)AfAm 86.52 05/13/20 10:45 Est GFR (CKD-EPI)NonAf 74.65 05/13/20 10:45 POC Glucometer 123 UNITS (80-120) 05/15/20 05:10 Random Glucose 140 mg/dL (74-106) H 05/13/20 10:45 Calcium 9.4 mg/dL (8.5-10.1) 05/13/20 10:45 Total Bilirubin 0.8 mg/dL (0.2-1) 05/13/20 10:45 AST 93 U/L (15-37) H 05/13/20 10:45 ALT 65 U/L (13-61) H 05/13/20 10:45 Alkaline Phosphatase 114 U/L (45-117) 05/13/20 10:45 Total Protein 7.4 g/dl (6.4-8.2) 05/13/20 10:45 Albumin 3.6 g/dl (3.4-5.0) 05/13/20 10:45 Syphilis Serology Non-reactive (NONREACTIVE) 05/13/20 10:45 COVID-19 ([facility]EN[facility]) Not detected (Not Detected) 05/13/20 11:45 Labs noted. Assessment: 05/15/20 11:50 AOX3, in no acute respiratory distress. Full ROM, ambulating in the unit. Withdrawal symptoms. Plan: continue detox.
[2020-05-15 13:46] VITALS: BP 159/93; PULSE 82; TEMP 97.8
--- NOTE | 2020-05-15 14:18 | DS ---
[facility] Detox Discharge Summary Admission Date: 05/13/20 Discharge Date: 05/15/20 (Pt left AMA) - History Present History: Alcohol Dependence Additional Comments: As per H&P: "54 year old male with history of alcohol dependence with withdrawal. He was last at [facility] from 03/05-03/07/20 and signed out against medical advice and then attempted to be re-admitted on 04/05/20 but not admitted due to his prior history. However, he is serious about completing detox and then go to rehab this time". Pt left AMA. Pt did not complete the detox protocol. Pt states, "i just want to leave". An attempt to let pt stay and complete the detox protocol failed. Pt is encouraged to follow-up with an outpatient CD program and also to follow-up with his pmd which he was adamant about the information given. Pt is AOX3, in no acute respiratory distress, Full ROM, and ambulatory. Pertinent Past History: h/o HTN, DM, HLD, and alcohol use disorder. - Physical Exam Results Vital Signs: Vital Signs Temperature 97.8 F 05/15/20 12:54 Pulse Rate 82 05/15/20 12:54 Respiratory Rate 18 05/15/20 12:54 Blood Pressure 159/93 05/15/20 12:54 O2 Sat by Pulse Oximetry (%) 97 05/15/20 12:54 Vital Signs 05/15/20 05/15/20 05/15/20 06:24 09:08 12:54 Temperature 97.2 F L 98.8 F 97.8 F Pulse Rate 79 80 82 Respiratory 18 18 18 Rate Blood Pressure 132/88 150/95 159/93 O2 Sat by Pulse 97 97 Oximetry (%) Laboratory Last Values WBC 3.4 K/mm3 (4.0-10.0) L 05/13/20 10:45 RBC 4.07 M/mm3 (4.00-5.60) 05/13/20 10:45 Hgb 13.5 GM/dL (11.7-16.9) 05/13/20 10:45 Hct 39.9 % (35.4-49) 05/13/20 10:45 MCV 97.9 fl (80-96) H 05/13/20 10:45 MCH 33.1 pg (25.7-33.7) 05/13/20 10:45 MCHC 33.8 g/dl (32.0-35.9) 05/13/20 10:45 RDW 14.1 % (11.9-15.9) 05/13/20 10:45 Plt Count 132 K/MM3 (134-434) L 05/13/20 10:45 MPV 11.0 fl (7.5-11.1) 05/13/20 10:45 Sodium 143 mmol/L (136-145) 05/13/20 10:45 Potassium 4.8 mmol/L (3.5-5.1) 05/13/20 10:45 Chloride 108 mmol/L (98-107) H 05/13/20 10:45 Carbon Dioxide 31 mmol/L (21-32) 05/13/20 10:45 Anion Gap 3 MMOL/L (8-16) L 05/13/20 10:45 BUN 10.6 mg/dL (7-18) 05/13/20 10:45 Creatinine 1.1 mg/dL (0.55-1.3) 05/13/20 10:45 Est GFR (CKD-EPI)AfAm 86.52 05/13/20 10:45 Est GFR (CKD-EPI)NonAf 74.65 05/13/20 10:45 POC Glucometer 123 UNITS (80-120) 05/15/20 05:10 Random Glucose 140 mg/dL (74-106) H 05/13/20 10:45 Calcium 9.4 mg/dL (8.5-10.1) 05/13/20 10:45 Total Bilirubin 0.8 mg/dL (0.2-1) 05/13/20 10:45 AST 93 U/L (15-37) H 05/13/20 10:45 ALT 65 U/L (13-61) H 05/13/20 10:45 Alkaline Phosphatase 114 U/L (45-117) 05/13/20 10:45 Total Protein 7.4 g/dl (6.4-8.2) 05/13/20 10:45 Albumin 3.6 g/dl (3.4-5.0) 05/13/20 10:45 Syphilis Serology Non-reactive (NONREACTIVE) 05/13/20 10:45 COVID-19 ([facility]EN[facility]) Not detected (Not Detected) 05/13/20 11:45 Labs noted. Pertinent Admission Physical Exam Findings: withdrawal symptoms. - Treatment Hospital Course: Detox Protocol Followed - Medication Discharge Medications: Ambulatory Orders Sertraline HCl [Zoloft] 100 mg PO DAILY #30 tablet 11/04/18 Allopurinol [Zyloprim -] 200 mg PO DAILY #14 tablet 02/05/20 Atorvastatin Ca [Lipitor] 80 mg PO HS #14 tablet 02/05/20 Colchicine [Colcrys] 0.6 mg PO DAILY #14 cap 02/05/20 Folic Acid - 1 mg PO DAILY #14 tablet 02/05/20 Metformin HCl [Glucophage] 500 mg PO BID #30 tablet 02/05/20 Metoprolol Succinate 100 mg PO BID #30 tab.sr 02/05/20 Polyvinyl Alcohol [Artificial Tears] 1 drop OU TID PRN 30 Days #1 bottle 02/05/20 Quetiapine Fumarate [Seroquel -] 400 mg PO HS #30 tablet 02/05/20 Thiamine HCl [B-1] 100 mg PO DAILY #14 tablet 02/05/20 Cyclobenzaprine HCl [Flexeril -] 5 mg PO TID 03/05/20 Multivitamins [Tab-A-Vit -] 1 tab PO DAILY 03/05/20 Naproxen [Naprosyn] 500 mg PO BID 03/05/20 Pantoprazole Sodium [Protonix -] 40 mg PO DAILY 05/13/20 - Diagnosis (1) Alcohol dependence Current Visit: No Status: Chronic (2) Alcohol dependence with uncomplicated withdrawal Current Visit: No Status: Acute (3) DM2 (diabetes mellitus, type 2) Current Visit: No Status: Chronic (4) HTN (hypertension) Current Visit: No Status: Chronic Qualifiers: Hypertension type: essential hypertension Qualified Code(s): I10 - Essential (primary) hypertension (5) Hyperlipidemia Current Visit: No Status: Chronic Qualifiers: Hyperlipidemia type: moderate mixed hyperlipidemia not requiring statin therapy Qualified Code(s): E78.2 - Mixed hyperlipidemia (6) Nicotine dependence Current Visit: No Status: Chronic Qualifiers: Nicotine product type: cigarettes Substance use status: uncomplicated Qualified Code(s): F17.210 - Nicotine dependence, cigarettes, uncomplicated - AMA Did Patient Leave Against Medical Advice: Yes
[2020-05-16] MEDS ORDERED: chlordiazePOXIDE HCL 10 MG CAPSULE PO PRN
[2020-05-16] MEDS ORDERED: chlordiazePOXIDE HCL 10 MG CAPSULE PO SCH (05:00)
[2020-05-17] MEDS ORDERED: chlordiazePOXIDE HCL 10 MG CAPSULE PO SCH (05:00)
[2020-05-18] MEDS ORDERED: chlordiazePOXIDE HCL 10 MG CAPSULE PO ONE (05:00)
== END 2020-05-15 14:28 | disposition home or self-care (01) | DRG 775 ==
LOC: YASAS 09:30 → Y3N 10:44
PROVIDERS: ADMIT Allergy & Immunology; ATTEND Allergy & Immunology
PROC: HZ2ZZZZ Detoxification Services for Substance Abuse Treatment (ICD-10-PCS; principal; 2020-05-13)
DX: F10.230 Alcohol dependence with withdrawal, uncomplicated (principal); F17.210 Nicotine dependence, cigarettes, uncomplicated; F25.9 Schizoaffective disorder, unspecified; F10.24 Alcohol dependence with alcohol-induced mood disorder; F10.282 Alcohol dependence with alcohol-induced sleep disorder; E78.5 Hyperlipidemia, unspecified; I10 Essential (primary) hypertension; G47.39 Other sleep apnea; K21.9 Gastro-esophageal reflux disease without esophagitis; M10.49 Other secondary gout, multiple sites; M19.90 Unspecified osteoarthritis, unspecified site; E11.9 Type 2 diabetes mellitus without complications; Z79.84 Long term (current) use of oral hypoglycemic drugs; E66.9 Obesity, unspecified; Z68.36 Body mass index [BMI] 36.0-36.9, adult; Z88.7 Allergy status to serum and vaccine; Z87.11 Personal history of peptic ulcer disease
CPT/HCPCS: 36415; 80053; 82962; 85027; 86780; Q0162; U0003

== ENCOUNTER 2020-08-12 08:40 | Inpatient (IN) | payer OTHER ==
[2020-08-12 10:25] VITALS: BMI 33.8
[2020-08-12] MEDS ORDERED: LORazepam 1 MG TABLET PO PRN (11:26)
[2020-08-12] MEDS ORDERED: MAGNESIUM HYDROX 2400MG/30ML ORAL SUSPENSION 30 ML CUP PO PRN (11:26)
[2020-08-12] MEDS ORDERED: METHOCARBAMOL 500 MG TABLET PO PRN (11:26)
[2020-08-12] MEDS ORDERED: MAGNESIUM CITRATE 300 ML BOTTLE PO PRN (11:26)
[2020-08-12] MEDS ORDERED: NICOTINE POLACRILEX 2 MG GUM BUC PRN (11:26)
[2020-08-12] MEDS ORDERED: ONDANSETRON *ODT* 4 MG TABLET SL PRN (11:26)
[2020-08-12] MEDS ORDERED: MAG HYDROX/AL HYDROX/SIMETH 30 ML UNIT-DOSE CUP PO PRN (11:26)
[2020-08-12] MEDS ORDERED: IBUPROFEN 400 MG TABLET (FP) PO PRN (11:26)
[2020-08-12] MEDS ORDERED: ACETAMINOPHEN 325 MG TABLET (FP) PO PRN ×2 (11:26)
[2020-08-12] MEDS ORDERED: MENTHOL/PHENOL 1 EACH UD MM PRN (11:26)
[2020-08-12] MEDS ORDERED: BISMUTH SUBSALICYLATE 262 MG/15 ML BTL PO PRN (11:26)
[2020-08-12] MEDS: PANTOPRAZOLE 40 MG TABLET PO SCH (12:04)
[2020-08-12 13:13] LABS: HEMOGLOBIN 14.4 GM/dL (11.7-16.9); MCH 30.9 pg (25.7-33.7); MCHC 33.5 g/dl (32.0-35.9); MEAN CELL VOLUME 92.4 fl (80-96); MEAN PLT VOLUME 10.8 fl (7.5-11.1); PLATELET COUNT 161 K/MM3 (134-434); POTASSIUM 4.6 mmol/L (3.5-5.1); RBC 4.65 M/mm3 (4.00-5.60); RDW 13.8 % (11.9-15.9); WHITE BLOOD COUNT 4.5 K/mm3 (4.0-10.0)
[2020-08-12 13:15] LABS: CALCIUM 9.2 mg/dL (8.5-10.1)
[2020-08-12 13:16] LABS: ALBUMIN 3.8 g/dl (3.4-5.0); BLOOD UREA NITROGEN 18.7 mg/dL (7-18)
[2020-08-12 13:19] LABS: CREATININE 1.4 mg/dL (0.55-1.3)
[2020-08-12 13:21] LABS: BILIRUBIN,TOTAL 0.7 mg/dL (0.2-1); TOT PROT 7.8 g/dl (6.4-8.2)
[2020-08-12] MEDS: valACYclovir HCL 500 MG TABLET (FP) PO SCH ×2 (13:27→22:19)
[2020-08-12] MEDS: ALLOPURINOL 100 MG TABLET (FP) PO SCH (13:28)
[2020-08-12] MEDS: COLCHICINE 0.6 MG CAP PO SCH (13:29)
[2020-08-12] MEDS: hydrOXYzine PAMOATE 25 MG CAPSULE (FP) PO SCH ×3 (13:30→22:19)
[2020-08-12] MEDS: LORazepam 2 MG TABLET PO SCH ×2 (17:29→22:19)
[2020-08-12] MEDS: metFORMIN HCL 500 MG TABLET (FP) PO SCH (17:29)
[2020-08-12] MEDS ORDERED: ATORVASTATIN CA 40 MG TABLET (FP) ONE (20:18)
[2020-08-12] MEDS: MELATONIN 5 MG TABLETS PO SCH (22:19)
[2020-08-12] MEDS: THIAMINE HCL 100 MG TABLET (FP) PO SCH (22:19)
[2020-08-12] MEDS: ATORVASTATIN CA 80 MG TABLET (FP) PO SCH (22:20)
[2020-08-13] MEDS: metFORMIN HCL 500 MG TABLET (FP) PO SCH ×2 (06:07→17:43)
[2020-08-13] MEDS: hydrOXYzine PAMOATE 25 MG CAPSULE (FP) PO SCH ×5 (06:07→22:27)
[2020-08-13] MEDS: LORazepam 2 MG TABLET PO SCH ×4 (06:07→22:27)
[2020-08-13] MEDS: PRENATAL VITAMINS W/ FOLIC ACID TABLET (FP) PO SCH (10:44)
[2020-08-13] MEDS: SERTRALINE HCL 50 MG TABLET (FP) PO SCH (10:44)
[2020-08-13] MEDS: valACYclovir HCL 500 MG TABLET (FP) PO SCH ×2 (10:44→22:27)
[2020-08-13] MEDS: PANTOPRAZOLE 40 MG TABLET PO SCH (10:44)
[2020-08-13] MEDS: NICOTINE 7 MG/24 HOURS TOPICAL PATCH TD SCH (10:44)
[2020-08-13] MEDS: COLCHICINE 0.6 MG CAP PO SCH (10:45)
[2020-08-13] MEDS: ALLOPURINOL 100 MG TABLET (FP) PO SCH (10:45)
[2020-08-13] MEDS: THIAMINE HCL 100 MG TABLET (FP) PO SCH (22:27)
[2020-08-13] MEDS: MELATONIN 5 MG TABLETS PO SCH (22:27)
[2020-08-13] MEDS: ATORVASTATIN CA 80 MG TABLET (FP) PO SCH (22:27)
[2020-08-13] MEDS: QUEtiapine FUMARATE 400 MG TABLET PO SCH (22:27)
[2020-08-13] MEDS: METOPROLOL TARTRATE 50 MG TABLET (FP) PO SCH (22:28)
[2020-08-14] MEDS: LORazepam 1 MG TABLET PO SCH ×4 (05:51→22:00)
[2020-08-14] MEDS: hydrOXYzine PAMOATE 25 MG CAPSULE (FP) PO SCH ×5 (05:54→21:59)
[2020-08-14] MEDS ORDERED: MASKS NR ONE (05:55)
[2020-08-14] MEDS: metFORMIN HCL 500 MG TABLET (FP) PO SCH ×2 (07:07→17:55)
[2020-08-14] MEDS: METOPROLOL TARTRATE 50 MG TABLET (FP) PO SCH ×2 (10:23→21:56)
[2020-08-14] MEDS: ALLOPURINOL 100 MG TABLET (FP) PO SCH (10:24)
[2020-08-14] MEDS: SERTRALINE HCL 50 MG TABLET (FP) PO SCH (10:24)
[2020-08-14] MEDS: PRENATAL VITAMINS W/ FOLIC ACID TABLET (FP) PO SCH (10:24)
[2020-08-14] MEDS: PANTOPRAZOLE 40 MG TABLET PO SCH (10:24)
[2020-08-14] MEDS: valACYclovir HCL 500 MG TABLET (FP) PO SCH ×2 (10:24→21:56)
[2020-08-14] MEDS: COLCHICINE 0.6 MG CAP PO SCH (10:25)
[2020-08-14] MEDS: NICOTINE 7 MG/24 HOURS TOPICAL PATCH TD SCH (10:25)
[2020-08-14] MEDS: THIAMINE HCL 100 MG TABLET (FP) PO SCH (21:56)
[2020-08-14] MEDS: QUEtiapine FUMARATE 400 MG TABLET PO SCH (21:56)
[2020-08-14] MEDS: ATORVASTATIN CA 80 MG TABLET (FP) PO SCH (21:56)
[2020-08-14] MEDS: MELATONIN 5 MG TABLETS PO SCH (21:57)
[2020-08-15] MEDS ORDERED: LORazepam 0.5 MG TABLET PO PRN
[2020-08-15] MEDS: LORazepam 0.5 MG TABLET PO SCH ×4 (06:47→22:30)
[2020-08-15] MEDS: metFORMIN HCL 500 MG TABLET (FP) PO SCH ×2 (06:47→17:31)
[2020-08-15] MEDS: hydrOXYzine PAMOATE 25 MG CAPSULE (FP) PO SCH ×5 (06:47→22:27)
[2020-08-15] MEDS: SERTRALINE HCL 50 MG TABLET (FP) PO SCH (10:31)
[2020-08-15] MEDS: ALLOPURINOL 100 MG TABLET (FP) PO SCH (10:31)
[2020-08-15] MEDS: valACYclovir HCL 500 MG TABLET (FP) PO SCH (10:31)
[2020-08-15] MEDS: PRENATAL VITAMINS W/ FOLIC ACID TABLET (FP) PO SCH (10:31)
[2020-08-15] MEDS: COLCHICINE 0.6 MG CAP PO SCH (10:31)
[2020-08-15] MEDS: PANTOPRAZOLE 40 MG TABLET PO SCH (10:31)
[2020-08-15] MEDS: METOPROLOL TARTRATE 50 MG TABLET (FP) PO SCH ×2 (10:32→22:29)
[2020-08-15] MEDS: NICOTINE 7 MG/24 HOURS TOPICAL PATCH TD SCH (10:33)
[2020-08-15] MEDS ORDERED: INSULIN SLIDING SCALE (NOVOLOG) 1 VIAL SQ ONE (16:54)
[2020-08-15] MEDS: THIAMINE HCL 100 MG TABLET (FP) PO SCH (22:27)
[2020-08-15] MEDS: QUEtiapine FUMARATE 400 MG TABLET PO SCH (22:29)
[2020-08-15] MEDS: ATORVASTATIN CA 80 MG TABLET (FP) PO SCH (22:30)
[2020-08-15] MEDS: MELATONIN 5 MG TABLETS PO SCH (22:31)
[2020-08-16] MEDS ORDERED: LORazepam 0.5 MG TABLET PO ONE (05:00)
[2020-08-16] MEDS: hydrOXYzine PAMOATE 25 MG CAPSULE (FP) PO SCH ×4 (05:48→17:27)
[2020-08-16] MEDS: metFORMIN HCL 500 MG TABLET (FP) PO SCH ×2 (06:57→17:26)
[2020-08-16] MEDS: PRENATAL VITAMINS W/ FOLIC ACID TABLET (FP) PO SCH (10:34)
[2020-08-16] MEDS: METOPROLOL TARTRATE 50 MG TABLET (FP) PO SCH (10:34)
[2020-08-16] MEDS: PANTOPRAZOLE 40 MG TABLET PO SCH (10:35)
[2020-08-16] MEDS: SERTRALINE HCL 50 MG TABLET (FP) PO SCH (10:35)
[2020-08-16] MEDS: COLCHICINE 0.6 MG CAP PO SCH (10:35)
[2020-08-16] MEDS: NICOTINE 7 MG/24 HOURS TOPICAL PATCH TD SCH (10:37)
[2020-08-16] MEDS: ALLOPURINOL 100 MG TABLET (FP) PO SCH (12:10)
[2020-08-16 17:50] VITALS: BP 141/80; PULSE 80; TEMP 97.3
== END 2020-08-16 18:00 | disposition other institution (70) | DRG 775 ==
LOC: YASAS 08:40 → Y3N 10:42
PROVIDERS: ADMIT Allergy & Immunology; ATTEND Allergy & Immunology
PROC: HZ2ZZZZ Detoxification Services for Substance Abuse Treatment (ICD-10-PCS; principal; 2020-08-12)
DX: F10.230 Alcohol dependence with withdrawal, uncomplicated (principal); F17.213 Nicotine dependence, cigarettes, with withdrawal; F19.24 Other psychoactive substance dependence with psychoactive substance-induced mood disorder; F25.9 Schizoaffective disorder, unspecified; I10 Essential (primary) hypertension; R74.01 Elevation of levels of liver transaminase levels; K21.9 Gastro-esophageal reflux disease without esophagitis; M10.40 Other secondary gout, unspecified site; E11.9 Type 2 diabetes mellitus without complications; E78.5 Hyperlipidemia, unspecified; K27.3 Acute peptic ulcer, site unspecified, without hemorrhage or perforation; A60.01 Herpesviral infection of penis; E66.9 Obesity, unspecified; Z68.33 Body mass index [BMI] 33.0-33.9, adult; Z88.8 Allergy status to other drugs, medicaments and biological substances; Z79.84 Long term (current) use of oral hypoglycemic drugs; Z56.0 Unemployment, unspecified
CPT/HCPCS: 36415; 80053; 82962; 85027; 86780; C9803; U0003

== ENCOUNTER 2020-08-16 18:05 | Inpatient (IN) | payer OTHER ==
[2020-08-16] MEDS ORDERED: NICOTINE POLACRILEX 2 MG GUM BUC PRN (20:32)
[2020-08-16] MEDS ORDERED: MAGNESIUM CITRATE 300 ML BOTTLE PO PRN (20:32)
[2020-08-16] MEDS ORDERED: guaiFENesin 200 MG/10 ML 10 ML UNIT-DOSE CUPS PO PRN (20:32)
[2020-08-16] MEDS ORDERED: LOPERAMIDE HCL 2 MG CAPSULE PO PRN (20:32)
[2020-08-16] MEDS ORDERED: P-EPHED 60MG/TRIPROLIDI 2.5MG TABLET PO PRN (20:32)
[2020-08-16] MEDS ORDERED: MENTHOL/PHENOL 1 EACH UD MM PRN (20:32)
[2020-08-16] MEDS ORDERED: MAG HYDROX/AL HYDROX/SIMETH 30 ML UNIT-DOSE CUP PO PRN (20:32)
[2020-08-16] MEDS ORDERED: MAGNESIUM HYDROX 2400MG/30ML ORAL SUSPENSION 30 ML CUP PO PRN (20:32)
[2020-08-16] MEDS ORDERED: ACETAMINOPHEN 325 MG TABLET (FP) PO PRN (20:32)
[2020-08-16] MEDS ORDERED: ARTIFICIAL TEARS (POLYVINYL ALCOHOL) OPTH DROPS OU PRN (20:52)
[2020-08-16] MEDS ORDERED: valACYclovir HCL 1000 MG TABLET PO SCH (22:00)
[2020-08-16] MEDS ORDERED: ATORVASTATIN CA 40 MG TABLET (FP) ONE (22:28)
[2020-08-16] MEDS: ATORVASTATIN CA 80 MG TABLET (FP) PO SCH (22:29)
[2020-08-16] MEDS: valACYclovir HCL 500 MG TABLET (FP) PO SCH (22:30)
[2020-08-16] MEDS: METOPROLOL TARTRATE 50 MG TABLET (FP) PO SCH (22:30)
[2020-08-16] MEDS: MELATONIN 5 MG TABLETS PO SCH (22:30)
[2020-08-16] MEDS ORDERED: QUEtiapine FUMARATE 400 MG TABLET PO ONE (22:30)
[2020-08-16] MEDS: hydrOXYzine PAMOATE 25 MG CAPSULE (FP) PO PRN (22:31)
[2020-08-16] MEDS: THIAMINE HCL 100 MG TABLET (FP) PO SCH (22:31)
[2020-08-16] MEDS: IBUPROFEN 400 MG TABLET (FP) PO PRN (22:32)
[2020-08-17] MEDS: valACYclovir HCL 500 MG TABLET (FP) PO SCH ×3 (06:37→21:26)
[2020-08-17] MEDS: metFORMIN HCL 500 MG TABLET (FP) PO SCH ×2 (06:37→16:52)
[2020-08-17] MEDS: PANTOPRAZOLE 40 MG TABLET PO SCH (09:40)
[2020-08-17] MEDS: METOPROLOL TARTRATE 50 MG TABLET (FP) PO SCH ×2 (09:40→21:26)
[2020-08-17] MEDS: PRENATAL VITAMINS W/ FOLIC ACID TABLET (FP) PO SCH (09:40)
[2020-08-17] MEDS: COLCHICINE 0.6 MG CAP PO SCH (09:41)
[2020-08-17] MEDS: ALLOPURINOL 100 MG TABLET (FP) PO SCH (09:41)
[2020-08-17] MEDS: NICOTINE 7 MG/24 HOURS TOPICAL PATCH TD SCH (09:42)
[2020-08-17] MEDS: hydrOXYzine PAMOATE 25 MG CAPSULE (FP) PO PRN (21:26)
[2020-08-17] MEDS: MELATONIN 5 MG TABLETS PO SCH (21:26)
[2020-08-17] MEDS: ATORVASTATIN CA 80 MG TABLET (FP) PO SCH (21:26)
[2020-08-17] MEDS: QUEtiapine FUMARATE 400 MG TABLET PO SCH (21:27)
[2020-08-17] MEDS: THIAMINE HCL 100 MG TABLET (FP) PO SCH (21:27)
[2020-08-18] MEDS: valACYclovir HCL 500 MG TABLET (FP) PO SCH ×3 (06:49→21:40)
[2020-08-18] MEDS: metFORMIN HCL 500 MG TABLET (FP) PO SCH ×2 (06:49→16:40)
[2020-08-18] MEDS: SERTRALINE HCL 50 MG TABLET (FP) PO SCH (09:59)
[2020-08-18] MEDS: PANTOPRAZOLE 40 MG TABLET PO SCH (09:59)
[2020-08-18] MEDS: METOPROLOL TARTRATE 50 MG TABLET (FP) PO SCH ×2 (09:59→21:40)
[2020-08-18] MEDS: PRENATAL VITAMINS W/ FOLIC ACID TABLET (FP) PO SCH (09:59)
[2020-08-18] MEDS: COLCHICINE 0.6 MG CAP PO SCH (10:00)
[2020-08-18] MEDS: ALLOPURINOL 100 MG TABLET (FP) PO SCH (10:00)
[2020-08-18] MEDS: NICOTINE 7 MG/24 HOURS TOPICAL PATCH TD SCH (10:01)
[2020-08-18] MEDS: IBUPROFEN 400 MG TABLET (FP) PO PRN ×2 (10:02→21:41)
[2020-08-18] MEDS: AMMONIUM LACTATE 12% LOTION 225 GM BOTTLE TP SCH (15:57)
[2020-08-18] MEDS ORDERED: ATORVASTATIN CA 40 MG TABLET (FP) ONE (19:12)
[2020-08-18] MEDS: ATORVASTATIN CA 80 MG TABLET (FP) PO SCH (21:39)
[2020-08-18] MEDS: THIAMINE HCL 100 MG TABLET (FP) PO SCH (21:40)
[2020-08-18] MEDS: QUEtiapine FUMARATE 400 MG TABLET PO SCH (21:40)
[2020-08-18] MEDS: hydrOXYzine PAMOATE 25 MG CAPSULE (FP) PO PRN (21:40)
[2020-08-18] MEDS: MELATONIN 5 MG TABLETS PO SCH (21:40)
[2020-08-19] MEDS: valACYclovir HCL 500 MG TABLET (FP) PO SCH (07:11)
[2020-08-19] MEDS: metFORMIN HCL 500 MG TABLET (FP) PO SCH (07:11)
[2020-08-19 07:12] VITALS: BP 152/97; PULSE 75; TEMP 98
[2020-08-19] MEDS ORDERED: MASKS NR ONE (07:13)
[2020-08-19] MEDS: PRENATAL VITAMINS W/ FOLIC ACID TABLET (FP) PO SCH (09:48)
[2020-08-19] MEDS: SERTRALINE HCL 50 MG TABLET (FP) PO SCH (09:49)
[2020-08-19] MEDS: ALLOPURINOL 100 MG TABLET (FP) PO SCH (09:49)
[2020-08-19] MEDS: PANTOPRAZOLE 40 MG TABLET PO SCH (09:49)
[2020-08-19] MEDS: METOPROLOL TARTRATE 50 MG TABLET (FP) PO SCH (09:49)
[2020-08-19] MEDS: COLCHICINE 0.6 MG CAP PO SCH (09:49)
[2020-08-19] MEDS: NICOTINE 7 MG/24 HOURS TOPICAL PATCH TD SCH (09:50)
[2020-08-19] MEDS: AMMONIUM LACTATE 12% LOTION 225 GM BOTTLE TP SCH (09:50)
[2020-08-19] MEDS: IBUPROFEN 400 MG TABLET (FP) PO PRN (09:51)
== END 2020-08-19 10:45 | disposition home or self-care (01) | DRG 772 ==
LOC: YASAS 18:05 → Y5N 18:07
PROVIDERS: ADMIT Allergy & Immunology; ATTEND Allergy & Immunology
PROC: HZ42ZZZ Group Counseling for Substance Abuse Treatment, Cognitive-Behavioral (ICD-10-PCS; principal; 2020-08-16)
DX: F10.20 Alcohol dependence, uncomplicated (principal); F17.213 Nicotine dependence, cigarettes, with withdrawal; F25.9 Schizoaffective disorder, unspecified
CPT/HCPCS: 82962

== ENCOUNTER 2020-11-27 08:25 | Inpatient (IN) | payer OTHER ==
[2020-11-27 09:38] VITALS: BMI 34.9
[2020-11-27] MEDS ORDERED: ONDANSETRON *ODT* 4 MG TABLET SL PRN (09:40)
[2020-11-27] MEDS ORDERED: MAG HYDROX/AL HYDROX/SIMETH 30 ML UNIT-DOSE CUP PO PRN (09:40)
[2020-11-27] MEDS ORDERED: chlordiazePOXIDE HCL 25 MG CAPSULE PO PRN (09:40)
[2020-11-27] MEDS ORDERED: BISMUTH SUBSALICYLATE 524 MG/30 ML UD PO PRN (09:40)
[2020-11-27] MEDS ORDERED: MENTHOL/PHENOL 1 EACH UD MM PRN (09:40)
[2020-11-27] MEDS ORDERED: NICOTINE POLACRILEX 2 MG GUM BUC PRN (09:40)
[2020-11-27] MEDS ORDERED: ACETAMINOPHEN 325 MG TABLET (FP) PO PRN ×2 (09:40)
[2020-11-27] MEDS ORDERED: METHOCARBAMOL 500 MG TABLET PO PRN (09:40)
[2020-11-27] MEDS ORDERED: MAGNESIUM HYDROX 2400MG/30ML ORAL SUSPENSION 30 ML CUP PO PRN (09:40)
[2020-11-27] MEDS ORDERED: MAGNESIUM CITRATE 300 ML BOTTLE PO PRN (09:40)
[2020-11-27] MEDS ORDERED: chlordiazePOXIDE HCL 25 MG CAPSULE ONE (10:30)
[2020-11-27] MEDS ORDERED: hydrOXYzine PAMOATE 25 MG CAPSULE (FP) PO ONE (10:31)
[2020-11-27] MEDS: chlordiazePOXIDE HCL 25 MG CAPSULE PO SCH ×3 (10:33→22:34)
[2020-11-27] MEDS: PRENATAL VITAMINS W/ FOLIC ACID TABLET (FP) PO SCH (10:33)
[2020-11-27] MEDS: hydrOXYzine PAMOATE 25 MG CAPSULE (FP) PO SCH ×4 (10:33→22:34)
[2020-11-27 11:58] LABS: ALBUMIN 3.4 g/dl (3.4-5.0); BLOOD UREA NITROGEN 20.4 mg/dL (7-18); CALCIUM 9.3 mg/dL (8.5-10.1)
[2020-11-27 12:00] LABS: HEMATOCRIT 40.9 % (35.4-49); HEMOGLOBIN 13.5 GM/dL (11.7-16.9); MCH 32.2 pg (25.7-33.7); MEAN CELL VOLUME 97.6 fl (80-96); MEAN PLT VOLUME 11.4 fl (7.5-11.1); PLATELET COUNT 89 K/MM3 (134-434); RDW 14.1 % (11.9-15.9); WHITE BLOOD COUNT 3.1 K/mm3 (4.0-10.0)
[2020-11-27 12:01] LABS: CREATININE 1.2 mg/dL (0.55-1.3)
[2020-11-27 12:02] LABS: BILIRUBIN,TOTAL 0.8 mg/dL (0.2-1); TOT PROT 7.1 g/dl (6.4-8.2)
[2020-11-27] MEDS: LIDOCAINE 5% TOPICAL PATCH TP SCH (12:37)
[2020-11-27] MEDS: PANTOPRAZOLE 40 MG TABLET PO SCH (12:37)
[2020-11-27] MEDS: NICOTINE 14 MG/24 HOURS TOPICAL PATCH TD SCH (12:39)
[2020-11-27] MEDS: metFORMIN HCL 500 MG TABLET (FP) PO SCH (17:47)
[2020-11-27] MEDS: ATORVASTATIN CA 80 MG TABLET (FP) PO SCH (22:33)
[2020-11-27] MEDS: METOPROLOL TARTRATE 50 MG TABLET (FP) PO SCH (22:33)
[2020-11-27] MEDS: THIAMINE HCL 100 MG TABLET (FP) PO SCH (22:34)
[2020-11-27] MEDS: MELATONIN 5 MG TABLETS PO SCH (22:34)
[2020-11-27] MEDS: IBUPROFEN 400 MG TABLET (FP) PO PRN (22:37)
[2020-11-27] MEDS: LIDOCAINE PATCH REMOVAL MC SCH (22:38)
[2020-11-28] MEDS: metFORMIN HCL 500 MG TABLET (FP) PO SCH ×2 (06:02→16:40)
[2020-11-28] MEDS: chlordiazePOXIDE HCL 25 MG CAPSULE PO SCH ×4 (06:03→22:20)
[2020-11-28] MEDS: hydrOXYzine PAMOATE 25 MG CAPSULE (FP) PO SCH ×5 (06:03→22:18)
[2020-11-28] MEDS: PRENATAL VITAMINS W/ FOLIC ACID TABLET (FP) PO SCH (11:12)
[2020-11-28] MEDS: LIDOCAINE 5% TOPICAL PATCH TP SCH (11:13)
[2020-11-28] MEDS: METOPROLOL TARTRATE 50 MG TABLET (FP) PO SCH ×2 (11:13→22:17)
[2020-11-28] MEDS: PANTOPRAZOLE 40 MG TABLET PO SCH (11:13)
[2020-11-28] MEDS: ALLOPURINOL 100 MG TABLET (FP) PO SCH (11:14)
[2020-11-28] MEDS: NICOTINE 14 MG/24 HOURS TOPICAL PATCH TD SCH (11:15)
[2020-11-28] MEDS: IBUPROFEN 400 MG TABLET (FP) PO PRN (11:20)
[2020-11-28] MEDS: SERTRALINE HCL 50 MG TABLET (FP) PO SCH (12:49)
[2020-11-28] MEDS: amLODIPine BESYLATE 5 MG TABLET (FP) PO SCH (12:49)
[2020-11-28] MEDS: COLCHICINE 0.6 MG CAP PO SCH (12:49)
[2020-11-28] MEDS: LIDOCAINE PATCH REMOVAL MC SCH (22:16)
[2020-11-28] MEDS: ATORVASTATIN CA 80 MG TABLET (FP) PO SCH (22:16)
[2020-11-28] MEDS: THIAMINE HCL 100 MG TABLET (FP) PO SCH (22:17)
[2020-11-28] MEDS: MELATONIN 5 MG TABLETS PO SCH (22:17)
[2020-11-28] MEDS: QUEtiapine FUMARATE 400 MG TABLET PO SCH (22:17)
[2020-11-29] MEDS: hydrOXYzine PAMOATE 25 MG CAPSULE (FP) PO SCH ×5 (07:35→22:54)
[2020-11-29] MEDS: metFORMIN HCL 500 MG TABLET (FP) PO SCH ×2 (07:35→17:30)
[2020-11-29] MEDS: chlordiazePOXIDE HCL 25 MG CAPSULE PO SCH ×4 (07:35→22:53)
[2020-11-29] MEDS: amLODIPine BESYLATE 5 MG TABLET (FP) PO SCH (11:12)
[2020-11-29] MEDS: ALLOPURINOL 100 MG TABLET (FP) PO SCH (11:12)
[2020-11-29] MEDS: PRENATAL VITAMINS W/ FOLIC ACID TABLET (FP) PO SCH (11:12)
[2020-11-29] MEDS: METOPROLOL TARTRATE 50 MG TABLET (FP) PO SCH ×2 (11:13→22:54)
[2020-11-29] MEDS: NICOTINE 14 MG/24 HOURS TOPICAL PATCH TD SCH (11:13)
[2020-11-29] MEDS: COLCHICINE 0.6 MG CAP PO SCH (11:13)
[2020-11-29] MEDS: LIDOCAINE 5% TOPICAL PATCH TP SCH (11:13)
[2020-11-29] MEDS: PANTOPRAZOLE 40 MG TABLET PO SCH (11:13)
[2020-11-29] MEDS: SERTRALINE HCL 50 MG TABLET (FP) PO SCH (11:14)
[2020-11-29] MEDS ORDERED: METHOCARBAMOL 750 MG TAB PO ONE (11:15)
[2020-11-29] MEDS: METHYL SALICYLATE/MENTHOL OINT 30 GM TUBE TP SCH ×2 (15:25→22:53)
[2020-11-29] MEDS: THIAMINE HCL 100 MG TABLET (FP) PO SCH (22:54)
[2020-11-29] MEDS: QUEtiapine FUMARATE 400 MG TABLET PO SCH (22:54)
[2020-11-29] MEDS: MELATONIN 5 MG TABLETS PO SCH (22:54)
[2020-11-29] MEDS: ATORVASTATIN CA 80 MG TABLET (FP) PO SCH (22:54)
[2020-11-29] MEDS: LIDOCAINE PATCH REMOVAL MC SCH (22:54)
[2020-11-30] MEDS ORDERED: chlordiazePOXIDE HCL 10 MG CAPSULE PO PRN
[2020-11-30] MEDS: hydrOXYzine PAMOATE 25 MG CAPSULE (FP) PO SCH ×5 (07:23→22:32)
[2020-11-30] MEDS: chlordiazePOXIDE HCL 10 MG CAPSULE PO SCH ×4 (07:23→22:31)
[2020-11-30] MEDS: metFORMIN HCL 500 MG TABLET (FP) PO SCH ×2 (07:23→18:11)
[2020-11-30] MEDS: IBUPROFEN 400 MG TABLET (FP) PO PRN ×2 (07:30→22:34)
[2020-11-30] MEDS: NICOTINE 14 MG/24 HOURS TOPICAL PATCH TD SCH (10:23)
[2020-11-30] MEDS: PANTOPRAZOLE 40 MG TABLET PO SCH (10:24)
[2020-11-30] MEDS: amLODIPine BESYLATE 5 MG TABLET (FP) PO SCH (10:24)
[2020-11-30] MEDS: ALLOPURINOL 100 MG TABLET (FP) PO SCH (10:24)
[2020-11-30] MEDS: METHYL SALICYLATE/MENTHOL OINT 30 GM TUBE TP SCH ×2 (10:24→22:30)
[2020-11-30] MEDS: PRENATAL VITAMINS W/ FOLIC ACID TABLET (FP) PO SCH (10:24)
[2020-11-30] MEDS: COLCHICINE 0.6 MG CAP PO SCH (10:25)
[2020-11-30] MEDS: METOPROLOL TARTRATE 50 MG TABLET (FP) PO SCH ×2 (10:25→22:30)
[2020-11-30] MEDS: LIDOCAINE 5% TOPICAL PATCH TP SCH (10:25)
[2020-11-30] MEDS: SERTRALINE HCL 50 MG TABLET (FP) PO SCH (10:25)
[2020-11-30] MEDS: QUEtiapine FUMARATE 400 MG TABLET PO SCH (22:30)
[2020-11-30] MEDS: THIAMINE HCL 100 MG TABLET (FP) PO SCH (22:30)
[2020-11-30] MEDS: LIDOCAINE PATCH REMOVAL MC SCH (22:31)
[2020-11-30] MEDS: MELATONIN 5 MG TABLETS PO SCH (22:31)
[2020-11-30] MEDS: ATORVASTATIN CA 80 MG TABLET (FP) PO SCH (22:31)
[2020-12-01] MEDS ORDERED: chlordiazePOXIDE HCL 10 MG CAPSULE PO SCH (05:00)
[2020-12-01] MEDS: hydrOXYzine PAMOATE 25 MG CAPSULE (FP) PO SCH ×2 (07:12→10:25)
[2020-12-01] MEDS: IBUPROFEN 400 MG TABLET (FP) PO PRN (07:12)
[2020-12-01] MEDS: metFORMIN HCL 500 MG TABLET (FP) PO SCH (07:12)
[2020-12-01 09:32] VITALS: BP 143/78; PULSE 89; TEMP 97.9
[2020-12-01] MEDS: LIDOCAINE 5% TOPICAL PATCH TP SCH (10:24)
[2020-12-01] MEDS: ALLOPURINOL 100 MG TABLET (FP) PO SCH (10:24)
[2020-12-01] MEDS: METHYL SALICYLATE/MENTHOL OINT 30 GM TUBE TP SCH (10:24)
[2020-12-01] MEDS: COLCHICINE 0.6 MG CAP PO SCH (10:24)
[2020-12-01] MEDS: NICOTINE 14 MG/24 HOURS TOPICAL PATCH TD SCH (10:25)
[2020-12-01] MEDS: PRENATAL VITAMINS W/ FOLIC ACID TABLET (FP) PO SCH (10:25)
[2020-12-01] MEDS: amLODIPine BESYLATE 5 MG TABLET (FP) PO SCH (10:25)
[2020-12-01] MEDS: PANTOPRAZOLE 40 MG TABLET PO SCH (10:25)
[2020-12-01] MEDS: METOPROLOL TARTRATE 50 MG TABLET (FP) PO SCH (10:25)
[2020-12-01] MEDS: SERTRALINE HCL 50 MG TABLET (FP) PO SCH (10:25)
[2020-12-02] MEDS ORDERED: chlordiazePOXIDE HCL 10 MG CAPSULE PO ONE (05:00)
== END 2020-12-01 10:33 | disposition home or self-care (01) | DRG 775 ==
LOC: YASAS 08:25 → Y6N 11:47
PROVIDERS: ADMIT Allergy & Immunology; ATTEND Allergy & Immunology
PROC: HZ2ZZZZ Detoxification Services for Substance Abuse Treatment (ICD-10-PCS; principal; 2020-11-27)
DX: F10.230 Alcohol dependence with withdrawal, uncomplicated (principal); F17.210 Nicotine dependence, cigarettes, uncomplicated; F20.9 Schizophrenia, unspecified; F19.24 Other psychoactive substance dependence with psychoactive substance-induced mood disorder; F10.282 Alcohol dependence with alcohol-induced sleep disorder; D72.819 Decreased white blood cell count, unspecified; E11.9 Type 2 diabetes mellitus without complications; Z79.84 Long term (current) use of oral hypoglycemic drugs; E78.00 Pure hypercholesterolemia, unspecified; G47.39 Other sleep apnea; I10 Essential (primary) hypertension; K21.9 Gastro-esophageal reflux disease without esophagitis; M10.40 Other secondary gout, unspecified site; E66.9 Obesity, unspecified; Z68.35 Body mass index [BMI] 35.0-35.9, adult; Z87.11 Personal history of peptic ulcer disease; Z88.7 Allergy status to serum and vaccine
CPT/HCPCS: 36415; 80053; 82962; 85027; 86780; 93005; 93010; C9803; U0003

== ENCOUNTER 2021-01-09 08:52 | Inpatient (IN) | payer OTHER ==
[2021-01-09 09:42] VITALS: BMI 33.0
[2021-01-09] MEDS ORDERED: chlordiazePOXIDE HCL 25 MG CAPSULE PO PRN (11:25)
[2021-01-09] MEDS ORDERED: MAG HYDROX/AL HYDROX/SIMETH 30 ML UNIT-DOSE CUP PO PRN (11:25)
[2021-01-09] MEDS ORDERED: METHOCARBAMOL 500 MG TABLET PO PRN (11:25)
[2021-01-09] MEDS ORDERED: MAGNESIUM CITRATE 300 ML BOTTLE PO PRN (11:25)
[2021-01-09] MEDS ORDERED: BISMUTH SUBSALICYLATE 524 MG/30 ML UD PO PRN (11:25)
[2021-01-09] MEDS ORDERED: hydrOXYzine PAMOATE 25 MG CAPSULE (FP) PO PRN (11:25)
[2021-01-09] MEDS ORDERED: ACETAMINOPHEN 325 MG TABLET (FP) PO PRN ×2 (11:25)
[2021-01-09] MEDS ORDERED: MENTHOL/PHENOL 1 EACH UD MM PRN (11:25)
[2021-01-09] MEDS ORDERED: MAGNESIUM HYDROX 2400MG/30ML ORAL SUSPENSION 30 ML CUP PO PRN (11:25)
[2021-01-09] MEDS ORDERED: NICOTINE POLACRILEX 2 MG GUM BUC PRN (11:25)
[2021-01-09] MEDS ORDERED: ONDANSETRON *ODT* 4 MG TABLET SL PRN (11:25)
[2021-01-09] MEDS: chlordiazePOXIDE HCL 25 MG CAPSULE PO SCH ×2 (18:06→22:36)
[2021-01-09] MEDS: metFORMIN HCL 500 MG TABLET (FP) PO SCH (18:06)
[2021-01-09] MEDS: THIAMINE HCL 100 MG TABLET (FP) PO SCH (22:37)
[2021-01-09] MEDS: ATORVASTATIN CA 80 MG TABLET (FP) PO SCH (22:37)
[2021-01-09] MEDS: MELATONIN 5 MG TABLETS PO SCH (22:37)
[2021-01-09] MEDS: METOPROLOL TARTRATE 50 MG TABLET (FP) PO SCH (22:37)
[2021-01-10] MEDS: chlordiazePOXIDE HCL 25 MG CAPSULE PO SCH ×2 (05:25→10:14)
[2021-01-10] MEDS: metFORMIN HCL 500 MG TABLET (FP) PO SCH ×2 (07:27→18:00)
[2021-01-10 09:58] LABS: HEMATOCRIT 36.6 % (35.4-49); HEMOGLOBIN 12.9 GM/dL (11.7-16.9); MCH 32.4 pg (25.7-33.7); MCHC 35.2 g/dl (32.0-35.9); MEAN CELL VOLUME 91.9 fl (80-96); MEAN PLT VOLUME 11.1 fl (7.5-11.1); PLATELET COUNT 71 K/MM3 (134-434); RBC 3.98 M/mm3 (4.00-5.60); RDW 14.8 % (11.9-15.9); WHITE BLOOD COUNT 2.8 K/mm3 (4.0-10.0)
[2021-01-10] MEDS: PANTOPRAZOLE 40 MG TABLET PO SCH (10:13)
[2021-01-10] MEDS: METOPROLOL TARTRATE 50 MG TABLET (FP) PO SCH ×2 (10:13→22:59)
[2021-01-10] MEDS: NICOTINE 7 MG/24 HOURS TOPICAL PATCH TD SCH (10:13)
[2021-01-10] MEDS: SERTRALINE HCL 50 MG TABLET (FP) PO SCH (10:13)
[2021-01-10] MEDS: PRENATAL VITAMINS W/ FOLIC ACID TABLET (FP) PO SCH (10:13)
[2021-01-10] MEDS: IBUPROFEN 400 MG TABLET (FP) PO PRN (10:18)
[2021-01-10 10:20] LABS: ALBUMIN 2.4 g/dl (3.4-5.0)
[2021-01-10 10:21] LABS: TOT PROT 5.9 g/dl (6.4-8.2)
[2021-01-10 10:23] LABS: CALCIUM 8.1 mg/dL (8.5-10.1)
[2021-01-10 10:24] LABS: CREATININE 1.1 mg/dL (0.55-1.3)
[2021-01-10] MEDS ORDERED: LORazepam 1 MG TABLET PO PRN (10:48)
[2021-01-10] MEDS: LORazepam 2 MG TABLET PO SCH ×3 (11:15→22:50)
[2021-01-10] MEDS: POTASSIUM CHLORIDE TABS 20 MEQ TABLET.ER (FP) PO SCH ×2 (11:15→22:51)
[2021-01-10] MEDS: ALLOPURINOL 100 MG TABLET (FP) PO SCH (11:16)
[2021-01-10] MEDS: COLCHICINE 0.6 MG CAP PO SCH (11:16)
[2021-01-10] MEDS ORDERED: QUEtiapine FUMARATE 400 MG TABLET PO SCH (22:00)
[2021-01-10] MEDS: ATORVASTATIN CA 80 MG TABLET (FP) PO SCH (22:51)
[2021-01-10] MEDS: THIAMINE HCL 100 MG TABLET (FP) PO SCH (22:51)
[2021-01-10] MEDS: MELATONIN 5 MG TABLETS PO SCH (22:52)
[2021-01-11] MEDS ORDERED: chlordiazePOXIDE HCL 25 MG CAPSULE PO SCH (05:00)
[2021-01-11] MEDS: LORazepam 2 MG TABLET PO SCH ×3 (05:38→18:21)
[2021-01-11] MEDS: IBUPROFEN 400 MG TABLET (FP) PO PRN (05:39)
[2021-01-11] MEDS: metFORMIN HCL 500 MG TABLET (FP) PO SCH (07:13)
[2021-01-11] MEDS: ALLOPURINOL 100 MG TABLET (FP) PO SCH (11:12)
[2021-01-11] MEDS: PANTOPRAZOLE 40 MG TABLET PO SCH (11:12)
[2021-01-11] MEDS: SERTRALINE HCL 50 MG TABLET (FP) PO SCH (11:12)
[2021-01-11] MEDS: POTASSIUM CHLORIDE TABS 20 MEQ TABLET.ER (FP) PO SCH (11:13)
[2021-01-11] MEDS: METOPROLOL TARTRATE 50 MG TABLET (FP) PO SCH (11:13)
[2021-01-11] MEDS: PRENATAL VITAMINS W/ FOLIC ACID TABLET (FP) PO SCH (11:13)
[2021-01-11] MEDS: COLCHICINE 0.6 MG CAP PO SCH (11:13)
[2021-01-11] MEDS: NICOTINE 7 MG/24 HOURS TOPICAL PATCH TD SCH (11:13)
[2021-01-11] MEDS ORDERED: INSULIN SLIDING SCALE (NOVOLOG) 1 VIAL SQ SCH (16:30)
[2021-01-11 16:59] VITALS: BP 125/80; PULSE 83; TEMP 96.4
[2021-01-12] MEDS ORDERED: chlordiazePOXIDE HCL 10 MG CAPSULE PO PRN
[2021-01-12] MEDS ORDERED: LORazepam 1 MG TABLET PO SCH (05:00)
[2021-01-12] MEDS ORDERED: chlordiazePOXIDE HCL 10 MG CAPSULE PO SCH (05:00)
[2021-01-13] MEDS ORDERED: LORazepam 0.5 MG TABLET PO PRN
[2021-01-13] MEDS ORDERED: chlordiazePOXIDE HCL 10 MG CAPSULE PO SCH (05:00)
[2021-01-13] MEDS ORDERED: LORazepam 0.5 MG TABLET PO SCH (05:00)
[2021-01-13 08:06] LABS: SARS-CoV-2 NAA Not Detected (Not Detected)
[2021-01-14] MEDS ORDERED: LORazepam 0.5 MG TABLET PO ONE (05:00)
[2021-01-14] MEDS ORDERED: chlordiazePOXIDE HCL 10 MG CAPSULE PO ONE (05:00)
== END 2021-01-11 19:37 | disposition left against medical advice (07) | DRG 770 ==
LOC: YASAS 08:52 → Y6N 16:11
PROVIDERS: ADMIT Allergy & Immunology; ATTEND Allergy & Immunology
PROC: HZ2ZZZZ Detoxification Services for Substance Abuse Treatment (ICD-10-PCS; principal; 2021-01-09)
DX: F10.230 Alcohol dependence with withdrawal, uncomplicated (principal); F17.210 Nicotine dependence, cigarettes, uncomplicated; F10.282 Alcohol dependence with alcohol-induced sleep disorder; F20.9 Schizophrenia, unspecified; E78.5 Hyperlipidemia, unspecified; E11.9 Type 2 diabetes mellitus without complications; Z79.84 Long term (current) use of oral hypoglycemic drugs; I10 Essential (primary) hypertension; K21.9 Gastro-esophageal reflux disease without esophagitis; M1A.09X0 Idiopathic chronic gout, multiple sites, without tophus (tophi); M19.90 Unspecified osteoarthritis, unspecified site; R74.8 Abnormal levels of other serum enzymes; R79.89 Other specified abnormal findings of blood chemistry; Z87.11 Personal history of peptic ulcer disease; Z87.448 Personal history of other diseases of urinary system; Z88.7 Allergy status to serum and vaccine
CPT/HCPCS: 36415; 80053; 82962; 85027; 86780; C9803; Q0162; U0003; U0005

== ENCOUNTER 2021-04-23 08:58 | Inpatient (IN) | payer OTHER ==
[2021-04-23 09:41] VITALS: BMI 34.8
[2021-04-23] MEDS ORDERED: ACETAMINOPHEN 325 MG TABLET (FP) PO PRN ×2 (13:56)
[2021-04-23] MEDS ORDERED: ONDANSETRON *ODT* 4 MG TABLET SL PRN (13:56)
[2021-04-23] MEDS ORDERED: METHOCARBAMOL 500 MG TABLET PO PRN (13:56)
[2021-04-23] MEDS ORDERED: diazePAM 5 MG TABLET PO PRN (13:56)
[2021-04-23] MEDS ORDERED: MAGNESIUM HYDROX 2400MG/30ML ORAL SUSPENSION 30 ML CUP PO PRN (13:56)
[2021-04-23] MEDS ORDERED: BISMUTH SUBSALICYLATE 524 MG/30 ML PO PRN (13:56)
[2021-04-23] MEDS ORDERED: MENTHOL/PHENOL 1 EACH UD MM PRN (13:56)
[2021-04-23] MEDS ORDERED: MAGNESIUM CITRATE 300 ML BOTTLE PO PRN (13:56)
[2021-04-23] MEDS ORDERED: ACETAMINOPHEN 325 MG TABLET (FP) ONE (15:28)
[2021-04-23] MEDS ORDERED: hydrOXYzine PAMOATE 25 MG CAPSULE (FP) PO ONE (15:28)
[2021-04-23] MEDS: hydrOXYzine PAMOATE 25 MG CAPSULE (FP) PO SCH ×3 (15:34→23:29)
[2021-04-23] MEDS: ATORVASTATIN CA 80 MG TABLET (FP) PO SCH (23:28)
[2021-04-23] MEDS: metFORMIN HCL 500 MG TABLET (FP) PO SCH (23:28)
[2021-04-23] MEDS: ALLOPURINOL 100 MG TABLET (FP) PO SCH (23:29)
[2021-04-23] MEDS: THIAMINE HCL 100 MG TABLET (FP) PO SCH (23:29)
[2021-04-23] MEDS: METOPROLOL TARTRATE 50 MG TABLET (FP) PO SCH (23:29)
[2021-04-23] MEDS: MELATONIN 5 MG TABLETS PO SCH (23:29)
[2021-04-24] MEDS: diazePAM 5 MG TABLET PO SCH ×6 (06:05→22:21)
[2021-04-24] MEDS: hydrOXYzine PAMOATE 25 MG CAPSULE (FP) PO SCH ×5 (06:10→22:20)
[2021-04-24] MEDS: metFORMIN HCL 500 MG TABLET (FP) PO SCH ×2 (06:10→17:07)
[2021-04-24] MEDS: IBUPROFEN 400 MG TABLET (FP) PO PRN ×3 (06:16→22:23)
[2021-04-24] MEDS: PRENATAL VITAMINS W/ FOLIC ACID TABLET (FP) PO SCH (11:13)
[2021-04-24] MEDS: ALLOPURINOL 100 MG TABLET (FP) PO SCH ×2 (11:13→22:20)
[2021-04-24] MEDS: METOPROLOL TARTRATE 50 MG TABLET (FP) PO SCH ×2 (11:13→22:19)
[2021-04-24 11:57] LABS: HEMATOCRIT 38.2 % (35.4-49); HEMOGLOBIN 12.9 GM/dL (11.7-16.9); MCH 31.6 pg (25.7-33.7); MCHC 33.8 g/dl (32.0-35.9); MEAN CELL VOLUME 93.5 fl (80-96); MEAN PLT VOLUME 10.9 fl (7.5-11.1); PLATELET COUNT 98 10^3/uL (134-434); RBC 4.08 M/mm3 (4.00-5.60); RDW 14.2 % (11.9-15.9); WHITE BLOOD COUNT 3.3 K/mm3 (4.0-10.0)
[2021-04-24] MEDS: SERTRALINE HCL 50 MG TABLET (FP) PO SCH (12:09)
[2021-04-24] MEDS ORDERED: MASKS NR ONE (12:09)
[2021-04-24] MEDS: COLCHICINE 0.6 MG CAP PO SCH (12:09)
[2021-04-24 12:27] LABS: CALCIUM 7.8 mg/dL (8.5-10.1)
[2021-04-24 12:28] LABS: ALBUMIN 3.5 g/dl (3.4-5.0); BLOOD UREA NITROGEN 16.7 mg/dL (7-18)
[2021-04-24 12:32] LABS: BILIRUBIN,TOTAL 0.7 mg/dL (0.2-1); TOT PROT 6.9 g/dl (6.4-8.2)
[2021-04-24] MEDS: QUEtiapine FUMARATE 400 MG TABLET PO SCH (22:19)
[2021-04-24] MEDS: THIAMINE HCL 100 MG TABLET (FP) PO SCH (22:20)
[2021-04-24] MEDS: ATORVASTATIN CA 80 MG TABLET (FP) PO SCH (22:20)
[2021-04-24] MEDS: MELATONIN 5 MG TABLETS PO SCH (22:21)
[2021-04-24] MEDS: MAG HYDROX/AL HYDROX/SIMETH 30 ML UNIT-DOSE CUP PO PRN (22:27)
[2021-04-25] MEDS: metFORMIN HCL 500 MG TABLET (FP) PO SCH ×2 (06:06→18:42)
[2021-04-25] MEDS: diazePAM 5 MG TABLET PO SCH ×3 (06:06→23:09)
[2021-04-25] MEDS: hydrOXYzine PAMOATE 25 MG CAPSULE (FP) PO SCH ×5 (07:25→23:08)
[2021-04-25] MEDS: SERTRALINE HCL 50 MG TABLET (FP) PO SCH (10:41)
[2021-04-25] MEDS: PRENATAL VITAMINS W/ FOLIC ACID TABLET (FP) PO SCH (10:42)
[2021-04-25] MEDS: COLCHICINE 0.6 MG CAP PO SCH (10:42)
[2021-04-25] MEDS: METOPROLOL TARTRATE 50 MG TABLET (FP) PO SCH ×2 (10:42→23:08)
[2021-04-25] MEDS: IBUPROFEN 400 MG TABLET (FP) PO PRN ×2 (10:44→18:44)
[2021-04-25] MEDS: ALLOPURINOL 100 MG TABLET (FP) PO SCH ×2 (10:45→23:08)
[2021-04-25] MEDS: NICOTINE 10 MG CARTRIDGE (INHALER) IH PRN (15:11)
[2021-04-25] MEDS: MAG HYDROX/AL HYDROX/SIMETH 30 ML UNIT-DOSE CUP PO PRN (18:44)
[2021-04-25] MEDS: QUEtiapine FUMARATE 400 MG TABLET PO SCH (23:08)
[2021-04-25] MEDS: THIAMINE HCL 100 MG TABLET (FP) PO SCH (23:09)
[2021-04-25] MEDS: MELATONIN 5 MG TABLETS PO SCH (23:11)
[2021-04-25] MEDS: ATORVASTATIN CA 80 MG TABLET (FP) PO SCH (23:11)
[2021-04-26] MEDS: diazePAM 5 MG TABLET PO SCH ×2 (06:54→17:34)
[2021-04-26] MEDS: metFORMIN HCL 500 MG TABLET (FP) PO SCH ×2 (06:54→17:34)
[2021-04-26] MEDS: hydrOXYzine PAMOATE 25 MG CAPSULE (FP) PO SCH ×5 (06:55→21:58)
[2021-04-26] MEDS: PRENATAL VITAMINS W/ FOLIC ACID TABLET (FP) PO SCH (10:34)
[2021-04-26] MEDS: ALLOPURINOL 100 MG TABLET (FP) PO SCH ×2 (10:34→22:04)
[2021-04-26] MEDS: SERTRALINE HCL 50 MG TABLET (FP) PO SCH (10:34)
[2021-04-26] MEDS: COLCHICINE 0.6 MG CAP PO SCH (10:35)
[2021-04-26] MEDS: NICOTINE 10 MG CARTRIDGE (INHALER) IH PRN ×2 (10:37→22:31)
[2021-04-26] MEDS: METOPROLOL TARTRATE 50 MG TABLET (FP) PO SCH ×2 (10:39→22:00)
[2021-04-26] MEDS: IBUPROFEN 400 MG TABLET (FP) PO PRN ×2 (10:39→22:30)
[2021-04-26] MEDS: THIAMINE HCL 100 MG TABLET (FP) PO SCH (21:57)
[2021-04-26] MEDS: MELATONIN 5 MG TABLETS PO SCH (21:57)
[2021-04-26] MEDS: QUEtiapine FUMARATE 400 MG TABLET PO SCH (21:57)
[2021-04-26] MEDS: ATORVASTATIN CA 80 MG TABLET (FP) PO SCH (21:59)
[2021-04-27] MEDS: hydrOXYzine PAMOATE 25 MG CAPSULE (FP) PO SCH (05:54)
[2021-04-27] MEDS ORDERED: diazePAM 5 MG TABLET PO ONE (06:00)
[2021-04-27] MEDS: metFORMIN HCL 500 MG TABLET (FP) PO SCH (07:26)
[2021-04-27 09:08] VITALS: BP 132/66; PULSE 82; TEMP 97.3
[2021-04-27] MEDS ORDERED: hydrOXYzine PAMOATE 25 MG CAPSULE (FP) PO PRN (09:59)
[2021-04-27] MEDS: PRENATAL VITAMINS W/ FOLIC ACID TABLET (FP) PO SCH (10:32)
[2021-04-27] MEDS: ALLOPURINOL 100 MG TABLET (FP) PO SCH (10:33)
[2021-04-27] MEDS: COLCHICINE 0.6 MG CAP PO SCH (10:33)
[2021-04-27] MEDS: METOPROLOL TARTRATE 50 MG TABLET (FP) PO SCH (10:33)
[2021-04-27] MEDS: SERTRALINE HCL 50 MG TABLET (FP) PO SCH (10:33)
[2021-04-27] MEDS: NICOTINE 10 MG CARTRIDGE (INHALER) IH PRN (10:35)
== END 2021-04-27 11:33 | disposition other institution (70) | DRG 775 ==
LOC: YASAS 08:58 → Y3N 04-24 01:39
PROVIDERS: ADMIT Allergy & Immunology; ATTEND Allergy & Immunology
PROC: HZ2ZZZZ Detoxification Services for Substance Abuse Treatment (ICD-10-PCS; principal; 2021-04-24)
DX: F10.230 Alcohol dependence with withdrawal, uncomplicated (principal); F10.280 Alcohol dependence with alcohol-induced anxiety disorder; F10.24 Alcohol dependence with alcohol-induced mood disorder; F19.24 Other psychoactive substance dependence with psychoactive substance-induced mood disorder; F10.282 Alcohol dependence with alcohol-induced sleep disorder; F32.9 Major depressive disorder, single episode, unspecified; D72.819 Decreased white blood cell count, unspecified; E11.9 Type 2 diabetes mellitus without complications; Z79.84 Long term (current) use of oral hypoglycemic drugs; K21.9 Gastro-esophageal reflux disease without esophagitis; I10 Essential (primary) hypertension; E78.5 Hyperlipidemia, unspecified; R74.01 Elevation of levels of liver transaminase levels; G47.39 Other sleep apnea; M1A.09X0 Idiopathic chronic gout, multiple sites, without tophus (tophi); E66.9 Obesity, unspecified; Z68.34 Body mass index [BMI] 34.0-34.9, adult; Z87.11 Personal history of peptic ulcer disease; Z88.7 Allergy status to serum and vaccine
CPT/HCPCS: 36415; 80053; 82962; 84450; 85027; 86780; C9803; U0003; U0005

== ENCOUNTER 2021-04-27 11:38 | Inpatient (IN) | payer OTHER ==
[2021-04-27] MEDS ORDERED: LOPERAMIDE HCL 2 MG CAPSULE PO PRN (14:36)
[2021-04-27] MEDS ORDERED: P-EPHED 60MG/TRIPROLIDI 2.5MG TABLET PO PRN (14:36)
[2021-04-27] MEDS ORDERED: MAG HYDROX/AL HYDROX/SIMETH 30 ML UNIT-DOSE CUP PO PRN (14:36)
[2021-04-27] MEDS ORDERED: MAGNESIUM CITRATE 300 ML BOTTLE PO PRN (14:36)
[2021-04-27] MEDS ORDERED: ACETAMINOPHEN 325 MG TABLET (FP) PO PRN (14:36)
[2021-04-27] MEDS ORDERED: MAGNESIUM HYDROX 2400MG/30ML ORAL SUSPENSION 30 ML CUP PO PRN (14:36)
[2021-04-27] MEDS ORDERED: guaiFENesin 200 MG/10 ML 10 ML UNIT-DOSE CUPS PO PRN (14:36)
[2021-04-27] MEDS: metFORMIN HCL 500 MG TABLET (FP) PO SCH (17:28)
[2021-04-27] MEDS: NICOTINE 10 MG CARTRIDGE (INHALER) IH PRN (20:52)
[2021-04-27] MEDS: METOPROLOL TARTRATE 50 MG TABLET (FP) PO SCH (21:37)
[2021-04-27] MEDS: THIAMINE HCL 100 MG TABLET (FP) PO SCH (21:37)
[2021-04-27] MEDS: MELATONIN 5 MG TABLETS PO SCH (21:37)
[2021-04-27] MEDS ORDERED: ATORVASTATIN CA 40 MG TABLET (FP) ONE (21:38)
[2021-04-27] MEDS: QUEtiapine FUMARATE 400 MG TABLET PO SCH (21:38)
[2021-04-27] MEDS: ATORVASTATIN CA 80 MG TABLET (FP) PO SCH (21:38)
[2021-04-27] MEDS: IBUPROFEN 400 MG TABLET (FP) PO PRN (21:39)
[2021-04-28] MEDS: metFORMIN HCL 500 MG TABLET (FP) PO SCH ×2 (07:56→17:19)
[2021-04-28] MEDS: SERTRALINE HCL 50 MG TABLET (FP) PO SCH (10:37)
[2021-04-28] MEDS: PRENATAL VITAMINS W/ FOLIC ACID TABLET (FP) PO SCH (10:37)
[2021-04-28] MEDS: NICOTINE 7 MG/24 HOURS TOPICAL PATCH TD SCH (10:38)
[2021-04-28] MEDS: METOPROLOL TARTRATE 50 MG TABLET (FP) PO SCH ×2 (10:38→22:14)
[2021-04-28] MEDS: COLCHICINE 0.6 MG CAP PO SCH (10:38)
[2021-04-28] MEDS: ALLOPURINOL 100 MG TABLET (FP) PO SCH (10:39)
[2021-04-28] MEDS: IBUPROFEN 400 MG TABLET (FP) PO PRN ×2 (10:40→22:15)
[2021-04-28] MEDS: NICOTINE 10 MG CARTRIDGE (INHALER) IH PRN ×2 (10:41→22:19)
[2021-04-28] MEDS ORDERED: PT OWN MED DRAWER 7, Y5N ONE ×2 (11:38→19:42)
[2021-04-28] MEDS ORDERED: ATORVASTATIN CA 40 MG TABLET (FP) ONE (19:41)
[2021-04-28] MEDS: ATORVASTATIN CA 80 MG TABLET (FP) PO SCH (22:13)
[2021-04-28] MEDS: THIAMINE HCL 100 MG TABLET (FP) PO SCH (22:14)
[2021-04-28] MEDS: QUEtiapine FUMARATE 400 MG TABLET PO SCH (22:14)
[2021-04-28] MEDS: MELATONIN 5 MG TABLETS PO SCH (22:15)
[2021-04-29] MEDS: metFORMIN HCL 500 MG TABLET (FP) PO SCH ×2 (06:46→16:31)
[2021-04-29] MEDS ORDERED: PT OWN MED DRAWER 7, Y5N ONE ×3 (09:11→18:50)
[2021-04-29] MEDS: PRENATAL VITAMINS W/ FOLIC ACID TABLET (FP) PO SCH (09:52)
[2021-04-29] MEDS: METOPROLOL TARTRATE 50 MG TABLET (FP) PO SCH ×2 (09:52→21:44)
[2021-04-29] MEDS: COLCHICINE 0.6 MG CAP PO SCH (09:53)
[2021-04-29] MEDS: ALLOPURINOL 100 MG TABLET (FP) PO SCH (09:53)
[2021-04-29] MEDS: SERTRALINE HCL 50 MG TABLET (FP) PO SCH (09:53)
[2021-04-29] MEDS: NICOTINE 7 MG/24 HOURS TOPICAL PATCH TD SCH (09:53)
[2021-04-29] MEDS ORDERED: ATORVASTATIN CA 40 MG TABLET (FP) ONE (18:49)
[2021-04-29] MEDS: QUEtiapine FUMARATE 400 MG TABLET PO SCH (21:44)
[2021-04-29] MEDS: THIAMINE HCL 100 MG TABLET (FP) PO SCH (21:44)
[2021-04-29] MEDS: MELATONIN 5 MG TABLETS PO SCH (21:44)
[2021-04-29] MEDS: ATORVASTATIN CA 80 MG TABLET (FP) PO SCH (21:45)
[2021-04-29] MEDS: hydrOXYzine PAMOATE 25 MG CAPSULE (FP) PO PRN (21:46)
[2021-04-29] MEDS: IBUPROFEN 400 MG TABLET (FP) PO PRN (21:46)
[2021-04-29] MEDS: NICOTINE 10 MG CARTRIDGE (INHALER) IH PRN (21:47)
[2021-04-30] MEDS: metFORMIN HCL 500 MG TABLET (FP) PO SCH ×2 (06:27→16:43)
[2021-04-30] MEDS ORDERED: PT OWN MED DRAWER 7, Y5N ONE (08:25)
[2021-04-30] MEDS: COLCHICINE 0.6 MG CAP PO SCH (09:18)
[2021-04-30] MEDS: ALLOPURINOL 100 MG TABLET (FP) PO SCH (09:18)
[2021-04-30] MEDS: METOPROLOL TARTRATE 50 MG TABLET (FP) PO SCH ×2 (09:18→21:07)
[2021-04-30] MEDS: SERTRALINE HCL 50 MG TABLET (FP) PO SCH (09:18)
[2021-04-30] MEDS: IBUPROFEN 400 MG TABLET (FP) PO PRN ×2 (09:19→21:08)
[2021-04-30] MEDS: NICOTINE 10 MG CARTRIDGE (INHALER) IH PRN ×2 (09:19→19:08)
[2021-04-30] MEDS: NICOTINE 7 MG/24 HOURS TOPICAL PATCH TD SCH (09:23)
[2021-04-30] MEDS: PRENATAL VITAMINS W/ FOLIC ACID TABLET (FP) PO SCH (09:23)
[2021-04-30] MEDS ORDERED: ATORVASTATIN CA 40 MG TABLET (FP) ONE (19:09)
[2021-04-30] MEDS: QUEtiapine FUMARATE 400 MG TABLET PO SCH (21:07)
[2021-04-30] MEDS: ATORVASTATIN CA 80 MG TABLET (FP) PO SCH (21:07)
[2021-04-30] MEDS: THIAMINE HCL 100 MG TABLET (FP) PO SCH (21:07)
[2021-04-30] MEDS: MELATONIN 5 MG TABLETS PO SCH (21:07)
[2021-05-01] MEDS: metFORMIN HCL 500 MG TABLET (FP) PO SCH ×2 (06:36→16:43)
[2021-05-01] MEDS ORDERED: PT OWN MED DRAWER 7, Y5N ONE ×2 (07:11→18:50)
[2021-05-01] MEDS: IBUPROFEN 400 MG TABLET (FP) PO PRN ×2 (08:53→21:33)
[2021-05-01] MEDS: NICOTINE 10 MG CARTRIDGE (INHALER) IH PRN ×2 (08:54→21:33)
[2021-05-01] MEDS: PRENATAL VITAMINS W/ FOLIC ACID TABLET (FP) PO SCH (09:05)
[2021-05-01] MEDS: METOPROLOL TARTRATE 50 MG TABLET (FP) PO SCH ×2 (09:05→21:32)
[2021-05-01] MEDS: NICOTINE 7 MG/24 HOURS TOPICAL PATCH TD SCH (09:05)
[2021-05-01] MEDS: COLCHICINE 0.6 MG CAP PO SCH (09:05)
[2021-05-01] MEDS: SERTRALINE HCL 50 MG TABLET (FP) PO SCH (09:05)
[2021-05-01] MEDS: ALLOPURINOL 100 MG TABLET (FP) PO SCH (09:05)
[2021-05-01] MEDS ORDERED: ATORVASTATIN CA 40 MG TABLET (FP) ONE (18:50)
[2021-05-01] MEDS: THIAMINE HCL 100 MG TABLET (FP) PO SCH (21:32)
[2021-05-01] MEDS: MELATONIN 5 MG TABLETS PO SCH (21:32)
[2021-05-01] MEDS: QUEtiapine FUMARATE 400 MG TABLET PO SCH (21:32)
[2021-05-01] MEDS: ATORVASTATIN CA 80 MG TABLET (FP) PO SCH (21:32)
[2021-05-01] MEDS: hydrOXYzine PAMOATE 25 MG CAPSULE (FP) PO PRN (21:33)
[2021-05-02] MEDS: metFORMIN HCL 500 MG TABLET (FP) PO SCH ×2 (06:49→16:55)
[2021-05-02] MEDS ORDERED: PT OWN MED DRAWER 7, Y5N ONE ×3 (09:15→18:39)
[2021-05-02] MEDS: SERTRALINE HCL 50 MG TABLET (FP) PO SCH (09:26)
[2021-05-02] MEDS: ALLOPURINOL 100 MG TABLET (FP) PO SCH (09:26)
[2021-05-02] MEDS: PRENATAL VITAMINS W/ FOLIC ACID TABLET (FP) PO SCH (09:26)
[2021-05-02] MEDS: METOPROLOL TARTRATE 50 MG TABLET (FP) PO SCH ×2 (09:27→21:05)
[2021-05-02] MEDS: COLCHICINE 0.6 MG CAP PO SCH (09:27)
[2021-05-02] MEDS: NICOTINE 7 MG/24 HOURS TOPICAL PATCH TD SCH (09:27)
[2021-05-02] MEDS: NICOTINE 10 MG CARTRIDGE (INHALER) IH PRN (09:28)
[2021-05-02] MEDS: THIAMINE HCL 100 MG TABLET (FP) PO SCH (21:06)
[2021-05-02] MEDS: MELATONIN 5 MG TABLETS PO SCH (21:06)
[2021-05-02] MEDS: QUEtiapine FUMARATE 400 MG TABLET PO SCH (21:06)
[2021-05-02] MEDS: ATORVASTATIN CA 80 MG TABLET (FP) PO SCH (21:06)
[2021-05-02] MEDS: IBUPROFEN 400 MG TABLET (FP) PO PRN (21:06)
[2021-05-02] MEDS: MENTHOL/PHENOL 1 EACH UD MM PRN (21:08)
[2021-05-03] MEDS: metFORMIN HCL 500 MG TABLET (FP) PO SCH ×2 (06:49→16:28)
[2021-05-03] MEDS ORDERED: PT OWN MED DRAWER 7, Y5N ONE ×2 (09:00→18:51)
[2021-05-03] MEDS: SERTRALINE HCL 50 MG TABLET (FP) PO SCH (10:41)
[2021-05-03] MEDS: PRENATAL VITAMINS W/ FOLIC ACID TABLET (FP) PO SCH (10:41)
[2021-05-03] MEDS: METOPROLOL TARTRATE 50 MG TABLET (FP) PO SCH ×2 (10:42→21:05)
[2021-05-03] MEDS: ALLOPURINOL 100 MG TABLET (FP) PO SCH (10:42)
[2021-05-03] MEDS: COLCHICINE 0.6 MG CAP PO SCH (10:42)
[2021-05-03] MEDS: NICOTINE 10 MG CARTRIDGE (INHALER) IH PRN (10:42)
[2021-05-03] MEDS: NICOTINE 7 MG/24 HOURS TOPICAL PATCH TD SCH (10:42)
[2021-05-03] MEDS: MENTHOL/PHENOL 1 EACH UD MM PRN ×2 (10:45→21:07)
[2021-05-03] MEDS ORDERED: ATORVASTATIN CA 40 MG TABLET (FP) ONE (18:51)
[2021-05-03] MEDS: ATORVASTATIN CA 80 MG TABLET (FP) PO SCH (21:05)
[2021-05-03] MEDS: MELATONIN 5 MG TABLETS PO SCH (21:05)
[2021-05-03] MEDS: hydrOXYzine PAMOATE 25 MG CAPSULE (FP) PO PRN (21:05)
[2021-05-03] MEDS: THIAMINE HCL 100 MG TABLET (FP) PO SCH (21:05)
[2021-05-03] MEDS: QUEtiapine FUMARATE 400 MG TABLET PO SCH (21:05)
[2021-05-03] MEDS: IBUPROFEN 400 MG TABLET (FP) PO PRN (21:06)
[2021-05-04] MEDS: metFORMIN HCL 500 MG TABLET (FP) PO SCH ×2 (07:19→16:48)
[2021-05-04] MEDS ORDERED: PT OWN MED DRAWER 7, Y5N ONE ×3 (09:11→21:55)
[2021-05-04] MEDS: PRENATAL VITAMINS W/ FOLIC ACID TABLET (FP) PO SCH (09:59)
[2021-05-04] MEDS: ALLOPURINOL 100 MG TABLET (FP) PO SCH (09:59)
[2021-05-04] MEDS: COLCHICINE 0.6 MG CAP PO SCH (09:59)
[2021-05-04] MEDS: SERTRALINE HCL 50 MG TABLET (FP) PO SCH (09:59)
[2021-05-04] MEDS: METOPROLOL TARTRATE 50 MG TABLET (FP) PO SCH ×2 (09:59→21:55)
[2021-05-04] MEDS: NICOTINE 7 MG/24 HOURS TOPICAL PATCH TD SCH (09:59)
[2021-05-04] MEDS: NICOTINE 10 MG CARTRIDGE (INHALER) IH PRN (09:59)
[2021-05-04] MEDS: hydrOXYzine PAMOATE 25 MG CAPSULE (FP) PO PRN ×2 (10:00→21:57)
[2021-05-04] MEDS: IBUPROFEN 400 MG TABLET (FP) PO PRN ×2 (10:00→21:56)
[2021-05-04] MEDS: ATORVASTATIN CA 80 MG TABLET (FP) PO SCH (21:55)
[2021-05-04] MEDS: THIAMINE HCL 100 MG TABLET (FP) PO SCH (21:55)
[2021-05-04] MEDS: QUEtiapine FUMARATE 400 MG TABLET PO SCH (21:55)
[2021-05-04] MEDS: MELATONIN 5 MG TABLETS PO SCH (21:56)
[2021-05-05] MEDS: metFORMIN HCL 500 MG TABLET (FP) PO SCH ×2 (06:41→16:40)
[2021-05-05] MEDS: SERTRALINE HCL 50 MG TABLET (FP) PO SCH (10:37)
[2021-05-05] MEDS: PRENATAL VITAMINS W/ FOLIC ACID TABLET (FP) PO SCH (10:38)
[2021-05-05] MEDS: NICOTINE 7 MG/24 HOURS TOPICAL PATCH TD SCH (10:38)
[2021-05-05] MEDS: NICOTINE 10 MG CARTRIDGE (INHALER) IH PRN (10:38)
[2021-05-05] MEDS: COLCHICINE 0.6 MG CAP PO SCH (10:39)
[2021-05-05] MEDS: ALLOPURINOL 100 MG TABLET (FP) PO SCH (10:39)
[2021-05-05] MEDS: METOPROLOL TARTRATE 50 MG TABLET (FP) PO SCH ×2 (10:40→21:08)
[2021-05-05] MEDS ORDERED: ATORVASTATIN CA 40 MG TABLET (FP) ONE (18:57)
[2021-05-05] MEDS ORDERED: PT OWN MED DRAWER 7, Y5N ONE (18:59)
[2021-05-05] MEDS: QUEtiapine FUMARATE 400 MG TABLET PO SCH (21:08)
[2021-05-05] MEDS: MELATONIN 5 MG TABLETS PO SCH (21:08)
[2021-05-05] MEDS: ATORVASTATIN CA 80 MG TABLET (FP) PO SCH (21:08)
[2021-05-05] MEDS: THIAMINE HCL 100 MG TABLET (FP) PO SCH (21:08)
[2021-05-05] MEDS: hydrOXYzine PAMOATE 25 MG CAPSULE (FP) PO PRN (21:09)
[2021-05-05] MEDS: IBUPROFEN 400 MG TABLET (FP) PO PRN (21:09)
[2021-05-06] MEDS: metFORMIN HCL 500 MG TABLET (FP) PO SCH ×2 (06:20→16:38)
[2021-05-06] MEDS: SERTRALINE HCL 50 MG TABLET (FP) PO SCH (10:53)
[2021-05-06] MEDS: PRENATAL VITAMINS W/ FOLIC ACID TABLET (FP) PO SCH (10:54)
[2021-05-06] MEDS: COLCHICINE 0.6 MG CAP PO SCH (10:54)
[2021-05-06] MEDS: NICOTINE 7 MG/24 HOURS TOPICAL PATCH TD SCH (10:55)
[2021-05-06] MEDS: ALLOPURINOL 100 MG TABLET (FP) PO SCH (10:55)
[2021-05-06] MEDS: METOPROLOL TARTRATE 50 MG TABLET (FP) PO SCH ×2 (10:56→21:36)
[2021-05-06] MEDS: IBUPROFEN 400 MG TABLET (FP) PO PRN (12:56)
[2021-05-06] MEDS: NICOTINE 10 MG CARTRIDGE (INHALER) IH PRN ×2 (12:56→21:37)
[2021-05-06] MEDS ORDERED: ATORVASTATIN CA 40 MG TABLET (FP) ONE (18:50)
[2021-05-06] MEDS: MELATONIN 5 MG TABLETS PO SCH (21:36)
[2021-05-06] MEDS: ATORVASTATIN CA 80 MG TABLET (FP) PO SCH (21:36)
[2021-05-06] MEDS: THIAMINE HCL 100 MG TABLET (FP) PO SCH (21:36)
[2021-05-06] MEDS: hydrOXYzine PAMOATE 25 MG CAPSULE (FP) PO PRN (21:37)
[2021-05-06] MEDS: QUEtiapine FUMARATE 400 MG TABLET PO SCH (21:37)
[2021-05-07] MEDS: metFORMIN HCL 500 MG TABLET (FP) PO SCH ×2 (06:48→17:13)
[2021-05-07] MEDS: PRENATAL VITAMINS W/ FOLIC ACID TABLET (FP) PO SCH (10:35)
[2021-05-07] MEDS: COLCHICINE 0.6 MG CAP PO SCH (10:36)
[2021-05-07] MEDS: SERTRALINE HCL 50 MG TABLET (FP) PO SCH (10:36)
[2021-05-07] MEDS: ALLOPURINOL 100 MG TABLET (FP) PO SCH (10:36)
[2021-05-07] MEDS: hydrOXYzine PAMOATE 25 MG CAPSULE (FP) PO PRN ×2 (10:36→21:11)
[2021-05-07] MEDS: METOPROLOL TARTRATE 50 MG TABLET (FP) PO SCH ×2 (10:36→21:10)
[2021-05-07] MEDS: NICOTINE 7 MG/24 HOURS TOPICAL PATCH TD SCH (10:38)
[2021-05-07] MEDS: ATORVASTATIN CA 80 MG TABLET (FP) PO SCH (21:10)
[2021-05-07] MEDS: QUEtiapine FUMARATE 400 MG TABLET PO SCH (21:10)
[2021-05-07] MEDS: MELATONIN 5 MG TABLETS PO SCH (21:11)
[2021-05-07] MEDS: THIAMINE HCL 100 MG TABLET (FP) PO SCH (21:11)
[2021-05-07] MEDS: IBUPROFEN 400 MG TABLET (FP) PO PRN (21:12)
[2021-05-08] MEDS: metFORMIN HCL 500 MG TABLET (FP) PO SCH ×2 (07:15→17:02)
[2021-05-08] MEDS: SERTRALINE HCL 50 MG TABLET (FP) PO SCH (10:33)
[2021-05-08] MEDS: COLCHICINE 0.6 MG CAP PO SCH (10:33)
[2021-05-08] MEDS: METOPROLOL TARTRATE 50 MG TABLET (FP) PO SCH ×2 (10:33→21:34)
[2021-05-08] MEDS: PRENATAL VITAMINS W/ FOLIC ACID TABLET (FP) PO SCH (10:33)
[2021-05-08] MEDS: ALLOPURINOL 100 MG TABLET (FP) PO SCH (10:33)
[2021-05-08] MEDS: NICOTINE 7 MG/24 HOURS TOPICAL PATCH TD SCH (10:33)
[2021-05-08] MEDS: hydrOXYzine PAMOATE 25 MG CAPSULE (FP) PO PRN ×2 (10:34→21:33)
[2021-05-08] MEDS: NICOTINE 10 MG CARTRIDGE (INHALER) IH PRN (10:34)
[2021-05-08] MEDS: IBUPROFEN 400 MG TABLET (FP) PO PRN (10:35)
[2021-05-08] MEDS: ATORVASTATIN CA 80 MG TABLET (FP) PO SCH (21:33)
[2021-05-08] MEDS: THIAMINE HCL 100 MG TABLET (FP) PO SCH (21:33)
[2021-05-08] MEDS: MELATONIN 5 MG TABLETS PO SCH (21:33)
[2021-05-08] MEDS: QUEtiapine FUMARATE 400 MG TABLET PO SCH (21:33)
[2021-05-08] MEDS: MENTHOL/PHENOL 1 EACH UD MM PRN (21:36)
[2021-05-09] MEDS: metFORMIN HCL 500 MG TABLET (FP) PO SCH ×2 (07:04→16:31)
[2021-05-09] MEDS: COLCHICINE 0.6 MG CAP PO SCH (10:01)
[2021-05-09] MEDS: ALLOPURINOL 100 MG TABLET (FP) PO SCH (10:01)
[2021-05-09] MEDS: hydrOXYzine PAMOATE 25 MG CAPSULE (FP) PO PRN ×2 (10:01→21:23)
[2021-05-09] MEDS: METOPROLOL TARTRATE 50 MG TABLET (FP) PO SCH ×2 (10:01→21:23)
[2021-05-09] MEDS: SERTRALINE HCL 50 MG TABLET (FP) PO SCH (10:01)
[2021-05-09] MEDS: PRENATAL VITAMINS W/ FOLIC ACID TABLET (FP) PO SCH (10:01)
[2021-05-09] MEDS: NICOTINE 7 MG/24 HOURS TOPICAL PATCH TD SCH (10:01)
[2021-05-09] MEDS: IBUPROFEN 400 MG TABLET (FP) PO PRN ×2 (10:02→21:24)
[2021-05-09] MEDS ORDERED: ATORVASTATIN CA 40 MG TABLET (FP) ONE (18:52)
[2021-05-09] MEDS: MELATONIN 5 MG TABLETS PO SCH (21:23)
[2021-05-09] MEDS: QUEtiapine FUMARATE 400 MG TABLET PO SCH (21:23)
[2021-05-09] MEDS: ATORVASTATIN CA 80 MG TABLET (FP) PO SCH (21:23)
[2021-05-09] MEDS: THIAMINE HCL 100 MG TABLET (FP) PO SCH (21:23)
[2021-05-09] MEDS: NICOTINE 10 MG CARTRIDGE (INHALER) IH PRN (21:24)
[2021-05-10] MEDS: metFORMIN HCL 500 MG TABLET (FP) PO SCH ×2 (06:51→16:37)
[2021-05-10] MEDS: SERTRALINE HCL 50 MG TABLET (FP) PO SCH (10:10)
[2021-05-10] MEDS: METOPROLOL TARTRATE 50 MG TABLET (FP) PO SCH ×2 (10:10→21:13)
[2021-05-10] MEDS: COLCHICINE 0.6 MG CAP PO SCH (10:10)
[2021-05-10] MEDS: PRENATAL VITAMINS W/ FOLIC ACID TABLET (FP) PO SCH (10:10)
[2021-05-10] MEDS: NICOTINE 7 MG/24 HOURS TOPICAL PATCH TD SCH (10:10)
[2021-05-10] MEDS: ALLOPURINOL 100 MG TABLET (FP) PO SCH (10:10)
[2021-05-10] MEDS ORDERED: ATORVASTATIN CA 40 MG TABLET (FP) ONE (18:56)
[2021-05-10] MEDS: MELATONIN 5 MG TABLETS PO SCH (21:12)
[2021-05-10] MEDS: THIAMINE HCL 100 MG TABLET (FP) PO SCH (21:12)
[2021-05-10] MEDS: hydrOXYzine PAMOATE 25 MG CAPSULE (FP) PO PRN (21:13)
[2021-05-10] MEDS: QUEtiapine FUMARATE 400 MG TABLET PO SCH (21:13)
[2021-05-10] MEDS: ATORVASTATIN CA 80 MG TABLET (FP) PO SCH (21:13)
[2021-05-10] MEDS: MENTHOL/PHENOL 1 EACH UD MM PRN (21:14)
[2021-05-10] MEDS: IBUPROFEN 400 MG TABLET (FP) PO PRN (21:14)
[2021-05-11] MEDS: metFORMIN HCL 500 MG TABLET (FP) PO SCH (06:13)
[2021-05-11 06:41] VITALS: PULSE 80; TEMP 97
[2021-05-11] MEDS: COLCHICINE 0.6 MG CAP PO SCH (10:19)
[2021-05-11] MEDS: NICOTINE 7 MG/24 HOURS TOPICAL PATCH TD SCH (10:19)
[2021-05-11] MEDS: ALLOPURINOL 100 MG TABLET (FP) PO SCH (10:19)
[2021-05-11] MEDS: METOPROLOL TARTRATE 50 MG TABLET (FP) PO SCH (10:19)
[2021-05-11] MEDS: SERTRALINE HCL 50 MG TABLET (FP) PO SCH (10:19)
[2021-05-11] MEDS: PRENATAL VITAMINS W/ FOLIC ACID TABLET (FP) PO SCH (10:20)
[2021-05-11] MEDS: IBUPROFEN 400 MG TABLET (FP) PO PRN (10:21)
[2021-05-11] MEDS: NICOTINE 10 MG CARTRIDGE (INHALER) IH PRN (10:22)
[2021-05-11] MEDS ORDERED: PT OWN MED DRAWER 7, Y5N ONE ×2 (10:35→10:52)
[2021-05-11 10:38] VITALS: BP 110/66
== END 2021-05-11 10:55 | disposition home or self-care (01) | DRG 772 ==
LOC: YASAS 11:38 → Y3W 11:39
PROVIDERS: ADMIT Allergy & Immunology; ATTEND Allergy & Immunology
PROC: HZ42ZZZ Group Counseling for Substance Abuse Treatment, Cognitive-Behavioral (ICD-10-PCS; principal; 2021-04-27)
DX: F10.20 Alcohol dependence, uncomplicated (principal); F20.9 Schizophrenia, unspecified; F32.9 Major depressive disorder, single episode, unspecified; E78.5 Hyperlipidemia, unspecified; E11.9 Type 2 diabetes mellitus without complications; Z79.84 Long term (current) use of oral hypoglycemic drugs; I10 Essential (primary) hypertension; K21.9 Gastro-esophageal reflux disease without esophagitis; M10.9 Gout, unspecified; G47.00 Insomnia, unspecified; E66.9 Obesity, unspecified; Z68.34 Body mass index [BMI] 34.0-34.9, adult; Z88.7 Allergy status to serum and vaccine
CPT/HCPCS: 82962

== ENCOUNTER 2021-06-29 12:33 | Inpatient (IN) | payer OTHER ==
[2021-06-29 15:38] VITALS: BMI 37.2
[2021-06-29] MEDS ORDERED: NICOTINE 10 MG CARTRIDGE (INHALER) IH PRN (16:00)
[2021-06-29] MEDS ORDERED: METHOCARBAMOL 500 MG TABLET PO PRN (16:00)
[2021-06-29] MEDS ORDERED: BISMUTH SUBSALICYLATE 524 MG/30 ML PO PRN (16:00)
[2021-06-29] MEDS ORDERED: MAGNESIUM CITRATE 300 ML BOTTLE PO PRN (16:00)
[2021-06-29] MEDS ORDERED: LORazepam 1 MG TABLET PO PRN (16:00)
[2021-06-29] MEDS ORDERED: MENTHOL/PHENOL 1 EACH UD MM PRN (16:00)
[2021-06-29] MEDS ORDERED: MAG HYDROX/AL HYDROX/SIMETH 30 ML UNIT-DOSE CUP PO PRN (16:00)
[2021-06-29] MEDS ORDERED: MAGNESIUM HYDROX 2400MG/30ML ORAL SUSPENSION 30 ML CUP PO PRN (16:00)
[2021-06-29] MEDS ORDERED: ACETAMINOPHEN 325 MG TABLET (FP) PO PRN ×2 (16:00)
[2021-06-29] MEDS ORDERED: ONDANSETRON *ODT* 4 MG TABLET SL PRN (16:00)
[2021-06-29] MEDS ORDERED: ARTIFICIAL TEARS (POLYVINYL ALCOHOL) OPTH DROPS OU PRN (16:04)
[2021-06-29] MEDS: hydrOXYzine PAMOATE 25 MG CAPSULE (FP) PO SCH ×2 (17:59→22:48)
[2021-06-29] MEDS: LORazepam 2 MG TABLET PO SCH ×2 (17:59→22:50)
[2021-06-29] MEDS: METOPROLOL TARTRATE 50 MG TABLET (FP) PO SCH (22:48)
[2021-06-29] MEDS: MELATONIN 5 MG TABLETS PO SCH (22:48)
[2021-06-29] MEDS: THIAMINE HCL 100 MG TABLET (FP) PO SCH (22:48)
[2021-06-29] MEDS: ATORVASTATIN CA 80 MG TABLET (FP) PO SCH (22:48)
[2021-06-30] MEDS: hydrOXYzine PAMOATE 25 MG CAPSULE (FP) PO SCH ×5 (06:50→22:28)
[2021-06-30] MEDS: LORazepam 2 MG TABLET PO SCH ×4 (06:50→22:28)
[2021-06-30] MEDS: metFORMIN HCL 500 MG TABLET (FP) PO SCH ×2 (06:54→17:47)
[2021-06-30] MEDS: METOPROLOL TARTRATE 50 MG TABLET (FP) PO SCH ×2 (10:32→22:28)
[2021-06-30] MEDS: PRENATAL VITAMINS W/ FOLIC ACID TABLET (FP) PO SCH (10:32)
[2021-06-30] MEDS: PANTOPRAZOLE 40 MG TABLET PO SCH (10:32)
[2021-06-30] MEDS: ALLOPURINOL 100 MG TABLET (FP) PO SCH (10:32)
[2021-06-30] MEDS: IBUPROFEN 400 MG TABLET (FP) PO PRN ×2 (10:37→17:46)
[2021-06-30] MEDS: SERTRALINE HCL 50 MG TABLET (FP) PO SCH (10:37)
[2021-06-30 11:09] LABS: ALBUMIN 3.1 g/dl (3.4-5.0); BLOOD UREA NITROGEN 14.2 mg/dL (7-18); CALCIUM 9.2 mg/dL (8.5-10.1)
[2021-06-30 11:12] LABS: CREATININE 0.9 mg/dL (0.55-1.3)
[2021-06-30 11:14] LABS: BILIRUBIN,TOTAL 0.9 mg/dL (0.2-1); TOT PROT 6.9 g/dl (6.4-8.2)
[2021-06-30 11:17] LABS: HEMATOCRIT 34.6 % (35.4-49); HEMOGLOBIN 11.8 GM/dL (11.7-16.9); MCH 30.4 pg (25.7-33.7); MEAN CELL VOLUME 89.4 fl (80-96); MEAN PLT VOLUME 10.9 fl (7.5-11.1); PLATELET COUNT 81 10^3/uL (134-434); RBC 3.87 M/mm3 (4.00-5.60); RDW 15.8 % (11.9-15.9); WHITE BLOOD COUNT 3.4 K/mm3 (4.0-10.0)
[2021-06-30] MEDS: ATORVASTATIN CA 80 MG TABLET (FP) PO SCH (22:27)
[2021-06-30] MEDS: MELATONIN 5 MG TABLETS PO SCH (22:28)
[2021-06-30] MEDS: THIAMINE HCL 100 MG TABLET (FP) PO SCH (22:28)
[2021-06-30] MEDS: QUEtiapine FUMARATE 400 MG TABLET PO SCH (22:28)
[2021-07-01] MEDS: hydrOXYzine PAMOATE 25 MG CAPSULE (FP) PO SCH ×5 (06:42→22:28)
[2021-07-01] MEDS: LORazepam 1 MG TABLET PO SCH ×4 (06:43→22:27)
[2021-07-01] MEDS: metFORMIN HCL 500 MG TABLET (FP) PO SCH ×2 (06:43→17:59)
[2021-07-01] MEDS: IBUPROFEN 400 MG TABLET (FP) PO PRN ×2 (06:44→22:29)
[2021-07-01] MEDS: SERTRALINE HCL 50 MG TABLET (FP) PO SCH (10:24)
[2021-07-01] MEDS: ALLOPURINOL 100 MG TABLET (FP) PO SCH (10:24)
[2021-07-01] MEDS: METOPROLOL TARTRATE 50 MG TABLET (FP) PO SCH ×2 (10:24→22:27)
[2021-07-01] MEDS: PANTOPRAZOLE 40 MG TABLET PO SCH (10:24)
[2021-07-01] MEDS: PRENATAL VITAMINS W/ FOLIC ACID TABLET (FP) PO SCH (10:24)
[2021-07-01] MEDS: ATORVASTATIN CA 80 MG TABLET (FP) PO SCH (22:27)
[2021-07-01] MEDS: QUEtiapine FUMARATE 400 MG TABLET PO SCH (22:28)
[2021-07-01] MEDS: MELATONIN 5 MG TABLETS PO SCH (22:28)
[2021-07-01] MEDS: THIAMINE HCL 100 MG TABLET (FP) PO SCH (22:31)
[2021-07-02] MEDS ORDERED: LORazepam 0.5 MG TABLET PO PRN
[2021-07-02] MEDS: hydrOXYzine PAMOATE 25 MG CAPSULE (FP) PO SCH ×5 (05:58→22:27)
[2021-07-02] MEDS: LORazepam 0.5 MG TABLET PO SCH ×4 (05:58→22:30)
[2021-07-02] MEDS: metFORMIN HCL 500 MG TABLET (FP) PO SCH ×2 (06:08→16:52)
[2021-07-02] MEDS: ALLOPURINOL 100 MG TABLET (FP) PO SCH (10:44)
[2021-07-02] MEDS: METOPROLOL TARTRATE 50 MG TABLET (FP) PO SCH ×2 (10:45→22:30)
[2021-07-02] MEDS: PANTOPRAZOLE 40 MG TABLET PO SCH (10:45)
[2021-07-02] MEDS: PRENATAL VITAMINS W/ FOLIC ACID TABLET (FP) PO SCH (10:46)
[2021-07-02] MEDS: SERTRALINE HCL 50 MG TABLET (FP) PO SCH (10:46)
[2021-07-02] MEDS: IBUPROFEN 400 MG TABLET (FP) PO PRN ×2 (10:47→22:33)
[2021-07-02] MEDS: MELATONIN 5 MG TABLETS PO SCH (22:27)
[2021-07-02] MEDS: THIAMINE HCL 100 MG TABLET (FP) PO SCH (22:27)
[2021-07-02] MEDS: ATORVASTATIN CA 80 MG TABLET (FP) PO SCH (22:30)
[2021-07-02] MEDS: QUEtiapine FUMARATE 400 MG TABLET PO SCH (22:32)
[2021-07-03] MEDS ORDERED: LORazepam 0.5 MG TABLET PO ONE (05:00)
[2021-07-03] MEDS: hydrOXYzine PAMOATE 25 MG CAPSULE (FP) PO SCH ×2 (06:46→10:35)
[2021-07-03] MEDS: metFORMIN HCL 500 MG TABLET (FP) PO SCH (06:47)
[2021-07-03] MEDS: IBUPROFEN 400 MG TABLET (FP) PO PRN (06:49)
[2021-07-03] MEDS: PRENATAL VITAMINS W/ FOLIC ACID TABLET (FP) PO SCH (10:35)
[2021-07-03] MEDS: ALLOPURINOL 100 MG TABLET (FP) PO SCH (10:37)
[2021-07-03] MEDS: PANTOPRAZOLE 40 MG TABLET PO SCH (10:38)
[2021-07-03] MEDS: SERTRALINE HCL 50 MG TABLET (FP) PO SCH (10:38)
[2021-07-03] MEDS: METOPROLOL TARTRATE 50 MG TABLET (FP) PO SCH (10:38)
[2021-07-03 12:57] VITALS: BP 114/77; PULSE 84; TEMP 96.8
== END 2021-07-03 13:34 | disposition home or self-care (01) | DRG 775 ==
LOC: YASAS 12:33 → Y3N 16:45
PROVIDERS: ADMIT Allergy & Immunology; ATTEND Allergy & Immunology
PROC: HZ2ZZZZ Detoxification Services for Substance Abuse Treatment (ICD-10-PCS; principal; 2021-06-29)
DX: F10.230 Alcohol dependence with withdrawal, uncomplicated (principal); F17.210 Nicotine dependence, cigarettes, uncomplicated; F10.282 Alcohol dependence with alcohol-induced sleep disorder; F32.9 Major depressive disorder, single episode, unspecified; I10 Essential (primary) hypertension; E78.00 Pure hypercholesterolemia, unspecified; E11.9 Type 2 diabetes mellitus without complications; Z79.84 Long term (current) use of oral hypoglycemic drugs; K74.60 Unspecified cirrhosis of liver; K21.9 Gastro-esophageal reflux disease without esophagitis; M1A.00X0 Idiopathic chronic gout, unspecified site, without tophus (tophi); G47.30 Sleep apnea, unspecified; Z87.11 Personal history of peptic ulcer disease; Z87.438 Personal history of other diseases of male genital organs; Z88.7 Allergy status to serum and vaccine
CPT/HCPCS: 36415; 80053; 82962; 85027; 86780; C9803; U0003; U0005

== ENCOUNTER 2021-07-03 13:57 | Inpatient (IN) | payer OTHER ==
[2021-07-03] MEDS ORDERED: IBUPROFEN 400 MG TABLET (FP) PO PRN (14:43)
[2021-07-03] MEDS ORDERED: MAG HYDROX/AL HYDROX/SIMETH 30 ML UNIT-DOSE CUP PO PRN (14:43)
[2021-07-03] MEDS ORDERED: MAGNESIUM HYDROX 2400MG/30ML ORAL SUSPENSION 30 ML CUP PO PRN (14:43)
[2021-07-03] MEDS ORDERED: MENTHOL/PHENOL 1 EACH UD MM PRN (14:43)
[2021-07-03] MEDS ORDERED: NICOTINE 10 MG CARTRIDGE (INHALER) IH PRN (14:43)
[2021-07-03] MEDS ORDERED: MAGNESIUM CITRATE 300 ML BOTTLE PO PRN (14:43)
[2021-07-03] MEDS ORDERED: ACETAMINOPHEN 325 MG TABLET (FP) PO PRN (14:43)
[2021-07-03] MEDS ORDERED: guaiFENesin 200 MG/10 ML 10 ML UNIT-DOSE CUPS PO PRN (14:43)
[2021-07-03] MEDS ORDERED: P-EPHED 60MG/TRIPROLIDI 2.5MG TABLET PO PRN (14:43)
[2021-07-03] MEDS ORDERED: LOPERAMIDE HCL 2 MG CAPSULE PO PRN (14:43)
[2021-07-03] MEDS ORDERED: ARTIFICIAL TEARS (POLYVINYL ALCOHOL) OPTH DROPS OU PRN (14:58)
[2021-07-03] MEDS: metFORMIN HCL 500 MG TABLET (FP) PO SCH (16:34)
[2021-07-03] MEDS: METOPROLOL TARTRATE 50 MG TABLET (FP) PO SCH (21:54)
[2021-07-03] MEDS: hydrOXYzine PAMOATE 25 MG CAPSULE (FP) PO PRN (21:55)
[2021-07-03] MEDS ORDERED: QUEtiapine FUMARATE 400 MG TABLET PO SCH (22:00)
[2021-07-03] MEDS ORDERED: MELATONIN 5 MG TABLETS PO SCH (22:00)
[2021-07-03] MEDS ORDERED: THIAMINE HCL 100 MG TABLET (FP) PO SCH (22:00)
[2021-07-03] MEDS ORDERED: ATORVASTATIN CA 40 MG TABLET (FP) PO SCH (22:00)
[2021-07-04] MEDS: metFORMIN HCL 500 MG TABLET (FP) PO SCH (06:31)
[2021-07-04 06:59] VITALS: BP 141/90; PULSE 80; TEMP 98
[2021-07-04] MEDS ORDERED: PRENATAL VITAMINS W/ FOLIC ACID TABLET (FP) PO SCH (10:00)
[2021-07-04] MEDS ORDERED: PANTOPRAZOLE 40 MG TABLET PO SCH (10:00)
[2021-07-04] MEDS ORDERED: SERTRALINE HCL 50 MG TABLET (FP) PO SCH (10:00)
[2021-07-04] MEDS ORDERED: ALLOPURINOL 100 MG TABLET (FP) PO SCH (10:00)
[2021-07-04] MEDS: METOPROLOL TARTRATE 50 MG TABLET (FP) PO SCH (10:40)
[2021-07-04] MEDS: hydrOXYzine PAMOATE 25 MG CAPSULE (FP) PO PRN (10:40)
== END 2021-07-04 11:48 | disposition left against medical advice (07) | DRG 770 ==
LOC: YASAS 13:57 → Y3W 14:00
PROVIDERS: ADMIT Allergy & Immunology; ATTEND Allergy & Immunology
PROC: HZ42ZZZ Group Counseling for Substance Abuse Treatment, Cognitive-Behavioral (ICD-10-PCS; principal; 2021-07-03)
DX: F10.20 Alcohol dependence, uncomplicated (principal); F17.210 Nicotine dependence, cigarettes, uncomplicated; F10.282 Alcohol dependence with alcohol-induced sleep disorder; F32.9 Major depressive disorder, single episode, unspecified; D61.818 Other pancytopenia; E78.5 Hyperlipidemia, unspecified; E11.9 Type 2 diabetes mellitus without complications; Z79.84 Long term (current) use of oral hypoglycemic drugs; G47.30 Sleep apnea, unspecified; K21.9 Gastro-esophageal reflux disease without esophagitis; K74.60 Unspecified cirrhosis of liver; M1A.9XX0 Chronic gout, unspecified, without tophus (tophi); E66.9 Obesity, unspecified; Z68.37 Body mass index [BMI] 37.0-37.9, adult; Z87.11 Personal history of peptic ulcer disease; Z87.438 Personal history of other diseases of male genital organs; Z88.7 Allergy status to serum and vaccine
CPT/HCPCS: 82962

== ENCOUNTER 2021-07-25 11:11 | Inpatient (IN) | payer OTHER ==
[2021-07-25 11:29] VITALS: BMI 36.1
[2021-07-25] MEDS ORDERED: MAG HYDROX/AL HYDROX/SIMETH 30 ML UNIT-DOSE CUP PO PRN (12:13)
[2021-07-25] MEDS ORDERED: MAGNESIUM HYDROX 2400MG/30ML ORAL SUSPENSION 30 ML CUP PO PRN (12:13)
[2021-07-25] MEDS ORDERED: IBUPROFEN 400 MG TABLET (FP) PO PRN (12:13)
[2021-07-25] MEDS ORDERED: MENTHOL/PHENOL 1 EACH UD MM PRN (12:13)
[2021-07-25] MEDS ORDERED: ACETAMINOPHEN 325 MG TABLET (FP) PO PRN ×2 (12:13)
[2021-07-25] MEDS ORDERED: BISMUTH SUBSALICYLATE 524 MG/30 ML PO PRN (12:13)
[2021-07-25] MEDS ORDERED: MAGNESIUM CITRATE 300 ML BOTTLE PO PRN (12:13)
[2021-07-25] MEDS ORDERED: ONDANSETRON *ODT* 4 MG TABLET SL PRN (12:13)
[2021-07-25] MEDS ORDERED: IBUPROFEN 600 MG TABLET (FP) PO PRN (12:16)
[2021-07-25] MEDS ORDERED: ARTIFICIAL TEARS (POLYVINYL ALCOHOL) OPTH DROPS OU PRN (12:16)
[2021-07-25] MEDS: NICOTINE 10 MG CARTRIDGE (INHALER) IH PRN (13:17)
[2021-07-25] MEDS: diazePAM 5 MG TABLET PO SCH ×3 (13:17→22:09)
[2021-07-25] MEDS: hydrOXYzine PAMOATE 25 MG CAPSULE (FP) PO SCH ×3 (13:17→22:11)
[2021-07-25] MEDS: METHOCARBAMOL 500 MG TABLET PO PRN (13:18)
[2021-07-25] MEDS: NICOTINE 7 MG/24 HOURS TOPICAL PATCH TD SCH (13:22)
[2021-07-25] MEDS: PRENATAL VITAMINS W/ FOLIC ACID TABLET (FP) PO SCH (13:22)
[2021-07-25] MEDS: metFORMIN HCL 500 MG TABLET (FP) PO SCH (17:02)
[2021-07-25 17:21] LABS: HEMOGLOBIN 12.5 GM/dL (11.7-16.9); MCH 31.2 pg (25.7-33.7); MCHC 33.9 g/dl (32.0-35.9); MEAN CELL VOLUME 92.1 fl (80-96); MEAN PLT VOLUME 10.7 fl (7.5-11.1); PLATELET COUNT 164 10^3/uL (134-434); RBC 4.01 M/mm3 (4.00-5.60); RDW 16.7 % (11.9-15.9)
[2021-07-25 17:22] LABS: ALBUMIN 3.7 g/dl (3.4-5.0); BLOOD UREA NITROGEN 13.6 mg/dL (7-18); CALCIUM 9.6 mg/dL (8.5-10.1)
[2021-07-25 17:25] LABS: CREATININE 1.1 mg/dL (0.55-1.3)
[2021-07-25 17:27] LABS: BILIRUBIN,TOTAL 0.5 mg/dL (0.2-1); TOT PROT 7.8 g/dl (6.4-8.2)
[2021-07-25] MEDS ORDERED: METOPROLOL TARTRATE 50 MG TABLET (FP) ONE (21:27)
[2021-07-25] MEDS ORDERED: METOPROLOL TARTRATE 25 MG TABLET (FP) ONE (21:27)
[2021-07-25] MEDS ORDERED: PATIENT'S OWN MEDICATION (NON-FORMULARY) (Metoprolol Tartrate [Lopressor] 100 MG Tablet) PO SCH (22:00)
[2021-07-25] MEDS ORDERED: MELATONIN 5 MG TABLETS PO SCH (22:00)
[2021-07-25] MEDS: METOPROLOL TARTRATE 100 MG, METOPROLOL TARTRATE 25 MG PO SCH (22:09)
[2021-07-25] MEDS: ATORVASTATIN CA 80 MG TABLET (FP) PO SCH (22:09)
[2021-07-25] MEDS: THIAMINE HCL 100 MG TABLET (FP) PO SCH (22:09)
[2021-07-26] MEDS: hydrOXYzine PAMOATE 25 MG CAPSULE (FP) PO SCH ×5 (05:14→22:29)
[2021-07-26] MEDS: diazePAM 5 MG TABLET PO SCH ×4 (05:14→22:29)
[2021-07-26] MEDS: IBUPROFEN 400 MG TABLET (FP) PO PRN ×2 (05:15→16:50)
[2021-07-26] MEDS: metFORMIN HCL 500 MG TABLET (FP) PO SCH ×2 (06:23→16:50)
[2021-07-26] MEDS ORDERED: METOPROLOL TARTRATE 50 MG TABLET (FP) ONE (08:59)
[2021-07-26] MEDS ORDERED: METOPROLOL TARTRATE 25 MG TABLET (FP) ONE (09:00)
[2021-07-26] MEDS: NICOTINE 10 MG CARTRIDGE (INHALER) IH PRN (10:14)
[2021-07-26] MEDS: METOPROLOL TARTRATE 100 MG, METOPROLOL TARTRATE 25 MG PO SCH ×2 (10:15→22:28)
[2021-07-26] MEDS: PANTOPRAZOLE 40 MG TABLET PO SCH (10:15)
[2021-07-26] MEDS: ALLOPURINOL 100 MG TABLET (FP) PO SCH (10:15)
[2021-07-26] MEDS: METHOCARBAMOL 500 MG TABLET PO PRN (10:15)
[2021-07-26] MEDS: NICOTINE 7 MG/24 HOURS TOPICAL PATCH TD SCH (10:16)
[2021-07-26] MEDS: COLCHICINE 0.6 MG CAP PO SCH (10:16)
[2021-07-26] MEDS: PRENATAL VITAMINS W/ FOLIC ACID TABLET (FP) PO SCH (10:16)
[2021-07-26] MEDS: SERTRALINE HCL 50 MG TABLET (FP) PO SCH (11:56)
[2021-07-26] MEDS: ATORVASTATIN CA 80 MG TABLET (FP) PO SCH (22:28)
[2021-07-26] MEDS: THIAMINE HCL 100 MG TABLET (FP) PO SCH (22:29)
[2021-07-26] MEDS: QUEtiapine FUMARATE 200 MG TABLET PO SCH (22:29)
[2021-07-27] MEDS: diazePAM 5 MG TABLET PO SCH ×3 (06:12→22:27)
[2021-07-27] MEDS: hydrOXYzine PAMOATE 25 MG CAPSULE (FP) PO SCH ×5 (06:12→23:18)
[2021-07-27] MEDS: metFORMIN HCL 500 MG TABLET (FP) PO SCH ×2 (06:12→17:50)
[2021-07-27] MEDS ORDERED: METOPROLOL TARTRATE 50 MG TABLET (FP) ONE ×2 (08:59→21:20)
[2021-07-27] MEDS ORDERED: METOPROLOL TARTRATE 25 MG TABLET (FP) ONE ×2 (09:00→21:20)
[2021-07-27] MEDS: PRENATAL VITAMINS W/ FOLIC ACID TABLET (FP) PO SCH (10:07)
[2021-07-27] MEDS: SERTRALINE HCL 50 MG TABLET (FP) PO SCH (10:07)
[2021-07-27] MEDS: PANTOPRAZOLE 40 MG TABLET PO SCH (10:07)
[2021-07-27] MEDS: METOPROLOL TARTRATE 100 MG, METOPROLOL TARTRATE 25 MG PO SCH ×2 (10:07→22:23)
[2021-07-27] MEDS: NICOTINE 7 MG/24 HOURS TOPICAL PATCH TD SCH (10:08)
[2021-07-27] MEDS: COLCHICINE 0.6 MG CAP PO SCH (10:08)
[2021-07-27] MEDS: ALLOPURINOL 100 MG TABLET (FP) PO SCH (10:08)
[2021-07-27] MEDS: diazePAM 5 MG TABLET PO PRN (10:09)
[2021-07-27] MEDS: IBUPROFEN 400 MG TABLET (FP) PO PRN ×2 (10:11→22:26)
[2021-07-27] MEDS: NICOTINE 10 MG CARTRIDGE (INHALER) IH PRN (15:51)
[2021-07-27] MEDS: THIAMINE HCL 100 MG TABLET (FP) PO SCH (22:24)
[2021-07-27] MEDS: ATORVASTATIN CA 80 MG TABLET (FP) PO SCH (22:24)
[2021-07-27] MEDS: QUEtiapine FUMARATE 200 MG TABLET PO SCH (22:25)
[2021-07-28] MEDS: diazePAM 5 MG TABLET PO SCH ×2 (06:12→17:45)
[2021-07-28] MEDS: hydrOXYzine PAMOATE 25 MG CAPSULE (FP) PO SCH ×5 (06:12→23:05)
[2021-07-28] MEDS: metFORMIN HCL 500 MG TABLET (FP) PO SCH ×2 (06:13→17:09)
[2021-07-28] MEDS: METOPROLOL TARTRATE 100 MG, METOPROLOL TARTRATE 25 MG PO SCH ×2 (10:12→23:05)
[2021-07-28] MEDS: SERTRALINE HCL 50 MG TABLET (FP) PO SCH (10:12)
[2021-07-28] MEDS: ALLOPURINOL 100 MG TABLET (FP) PO SCH (10:12)
[2021-07-28] MEDS: PANTOPRAZOLE 40 MG TABLET PO SCH (10:12)
[2021-07-28] MEDS: diazePAM 5 MG TABLET PO PRN (10:13)
[2021-07-28] MEDS: NICOTINE 10 MG CARTRIDGE (INHALER) IH PRN (10:16)
[2021-07-28] MEDS: COLCHICINE 0.6 MG CAP PO SCH (10:35)
[2021-07-28] MEDS: NICOTINE 7 MG/24 HOURS TOPICAL PATCH TD SCH (10:35)
[2021-07-28] MEDS: PRENATAL VITAMINS W/ FOLIC ACID TABLET (FP) PO SCH (10:35)
[2021-07-28] MEDS ORDERED: METOPROLOL TARTRATE 50 MG TABLET (FP) ONE (23:03)
[2021-07-28] MEDS ORDERED: METOPROLOL TARTRATE 25 MG TABLET (FP) ONE (23:04)
[2021-07-28] MEDS: QUEtiapine FUMARATE 200 MG TABLET PO SCH (23:05)
[2021-07-28] MEDS: ATORVASTATIN CA 80 MG TABLET (FP) PO SCH (23:05)
[2021-07-28] MEDS: THIAMINE HCL 100 MG TABLET (FP) PO SCH (23:05)
[2021-07-29] MEDS ORDERED: diazePAM 5 MG TABLET PO ONE (06:00)
[2021-07-29] MEDS: hydrOXYzine PAMOATE 25 MG CAPSULE (FP) PO SCH ×2 (06:19→10:25)
[2021-07-29] MEDS: metFORMIN HCL 500 MG TABLET (FP) PO SCH (07:23)
[2021-07-29 09:17] VITALS: BP 131/85; PULSE 88; TEMP 97.7
[2021-07-29] MEDS: PRENATAL VITAMINS W/ FOLIC ACID TABLET (FP) PO SCH (10:24)
[2021-07-29] MEDS: ALLOPURINOL 100 MG TABLET (FP) PO SCH (10:24)
[2021-07-29] MEDS: SERTRALINE HCL 50 MG TABLET (FP) PO SCH (10:24)
[2021-07-29] MEDS: PANTOPRAZOLE 40 MG TABLET PO SCH (10:25)
[2021-07-29] MEDS: NICOTINE 7 MG/24 HOURS TOPICAL PATCH TD SCH (10:26)
[2021-07-29] MEDS: COLCHICINE 0.6 MG CAP PO SCH (10:30)
[2021-07-29] MEDS: METOPROLOL TARTRATE 100 MG, METOPROLOL TARTRATE 25 MG PO SCH (10:30)
[2021-07-29] MEDS: IBUPROFEN 400 MG TABLET (FP) PO PRN (10:34)
== END 2021-07-29 10:39 | disposition home or self-care (01) | DRG 775 ==
LOC: YASAS 11:11 → Y6N 12:31
PROVIDERS: ADMIT Allergy & Immunology; ATTEND Allergy & Immunology
PROC: HZ2ZZZZ Detoxification Services for Substance Abuse Treatment (ICD-10-PCS; principal; 2021-07-25)
DX: F10.230 Alcohol dependence with withdrawal, uncomplicated (principal); F17.210 Nicotine dependence, cigarettes, uncomplicated; F20.9 Schizophrenia, unspecified; F10.280 Alcohol dependence with alcohol-induced anxiety disorder; F10.282 Alcohol dependence with alcohol-induced sleep disorder; E78.5 Hyperlipidemia, unspecified; G47.30 Sleep apnea, unspecified; I10 Essential (primary) hypertension; K21.9 Gastro-esophageal reflux disease without esophagitis; E11.9 Type 2 diabetes mellitus without complications; Z79.84 Long term (current) use of oral hypoglycemic drugs; M1A.9XX0 Chronic gout, unspecified, without tophus (tophi); R74.01 Elevation of levels of liver transaminase levels; E66.9 Obesity, unspecified; Z68.36 Body mass index [BMI] 36.0-36.9, adult; Z87.11 Personal history of peptic ulcer disease; Z87.438 Personal history of other diseases of male genital organs; Z88.7 Allergy status to serum and vaccine
CPT/HCPCS: 36415; 80053; 82962; 85027; 86780; C9803; U0003; U0005

== ENCOUNTER 2021-08-23 10:08 | Inpatient (IN) | payer OTHER ==
[2021-08-23] MEDS ORDERED: ONDANSETRON *ODT* 4 MG TABLET SL PRN (10:36)
[2021-08-23] MEDS ORDERED: ACETAMINOPHEN 325 MG TABLET (FP) PO PRN ×2 (10:36)
[2021-08-23] MEDS ORDERED: MAGNESIUM CITRATE 300 ML BOTTLE PO PRN (10:36)
[2021-08-23] MEDS ORDERED: MAGNESIUM HYDROX 2400MG/30ML ORAL SUSPENSION 30 ML CUP PO PRN (10:36)
[2021-08-23] MEDS ORDERED: BISMUTH SUBSALICYLATE 262 MG/15 ML BTL PO PRN (10:36)
[2021-08-23] MEDS ORDERED: chlordiazePOXIDE HCL 25 MG CAPSULE PO PRN (10:36)
[2021-08-23] MEDS ORDERED: MAG HYDROX/AL HYDROX/SIMETH 30 ML UNIT-DOSE CUP PO PRN (10:36)
[2021-08-23 10:38] VITALS: BMI 36.9
[2021-08-23] MEDS ORDERED: PATIENT'S OWN MEDICATION (NON-FORMULARY) (Metoprolol Tartrate [Lopressor] 100 MG Tablet) PO SCH (10:45)
[2021-08-23] MEDS ORDERED: chlordiazePOXIDE HCL 25 MG CAPSULE ONE (11:09)
[2021-08-23] MEDS: chlordiazePOXIDE HCL 25 MG CAPSULE PO SCH ×3 (11:12→22:05)
[2021-08-23] MEDS: METOPROLOL TARTRATE 100 MG, METOPROLOL TARTRATE 25 MG PO SCH ×2 (12:56→21:43)
[2021-08-23] MEDS: PRENATAL VITAMINS W/ FOLIC ACID TABLET (FP) PO SCH (12:57)
[2021-08-23] MEDS: hydrOXYzine PAMOATE 25 MG CAPSULE (FP) PO SCH ×3 (13:01→21:40)
[2021-08-23 15:21] LABS: HEMATOCRIT 42.5 % (35.4-49); HEMOGLOBIN 14.6 GM/dL (11.7-16.9); MCH 31.1 pg (25.7-33.7); MCHC 34.3 g/dl (32.0-35.9); MEAN CELL VOLUME 90.6 fl (80-96); PLATELET COUNT 161 10^3/uL (134-434); RBC 4.69 M/mm3 (4.00-5.60); RDW 15.8 % (11.9-15.9); WHITE BLOOD COUNT 3.6 K/mm3 (4.0-10.0)
[2021-08-23 15:38] LABS: CALCIUM 8.7 mg/dL (8.5-10.1)
[2021-08-23 15:40] LABS: ALBUMIN 3.7 g/dl (3.4-5.0); BLOOD UREA NITROGEN 17.6 mg/dL (7-18)
[2021-08-23 15:42] LABS: CREATININE 1.3 mg/dL (0.55-1.3)
[2021-08-23 15:44] LABS: BILIRUBIN,TOTAL 0.5 mg/dL (0.2-1); TOT PROT 7.9 g/dl (6.4-8.2)
[2021-08-23] MEDS: metFORMIN HCL 500 MG TABLET (FP) PO SCH (18:32)
[2021-08-23] MEDS: THIAMINE HCL 100 MG TABLET (FP) PO SCH (21:27)
[2021-08-23] MEDS: MELATONIN 5 MG TABLETS PO SCH (21:27)
[2021-08-23] MEDS: ATORVASTATIN CA 80 MG TABLET (FP) PO SCH (21:29)
[2021-08-23] MEDS: QUEtiapine FUMARATE 200 MG TABLET PO SCH (21:29)
[2021-08-23] MEDS: IBUPROFEN 400 MG TABLET (FP) PO PRN (21:32)
[2021-08-24] MEDS ORDERED: ASPIRIN 81 MG CHEWABLE TABLETS PO ONE (01:08)
[2021-08-24] MEDS: chlordiazePOXIDE HCL 25 MG CAPSULE PO SCH ×4 (06:07→22:25)
[2021-08-24] MEDS: metFORMIN HCL 500 MG TABLET (FP) PO SCH ×2 (06:07→16:42)
[2021-08-24] MEDS: MENTHOL/PHENOL 1 EACH UD MM PRN (06:12)
[2021-08-24] MEDS: guaiFENesin 200 MG/10 ML 10 ML UNIT-DOSE CUPS PO PRN ×2 (11:43→18:26)
[2021-08-24] MEDS: PANTOPRAZOLE 40 MG TABLET PO SCH (11:44)
[2021-08-24] MEDS: SERTRALINE HCL 50 MG TABLET (FP) PO SCH (11:44)
[2021-08-24] MEDS: PRENATAL VITAMINS W/ FOLIC ACID TABLET (FP) PO SCH (11:45)
[2021-08-24] MEDS: ALLOPURINOL 100 MG TABLET (FP) PO SCH (11:46)
[2021-08-24] MEDS: IBUPROFEN 400 MG TABLET (FP) PO PRN (11:51)
[2021-08-24] MEDS: METOPROLOL TARTRATE 100 MG, METOPROLOL TARTRATE 25 MG PO SCH ×2 (11:58→22:25)
[2021-08-24] MEDS: COLCHICINE 0.6 MG CAP PO SCH (11:58)
[2021-08-24] MEDS: THIAMINE HCL 100 MG TABLET (FP) PO SCH (22:24)
[2021-08-24] MEDS: ATORVASTATIN CA 80 MG TABLET (FP) PO SCH (22:25)
[2021-08-24] MEDS: MELATONIN 5 MG TABLETS PO SCH (22:25)
[2021-08-24] MEDS: QUEtiapine FUMARATE 200 MG TABLET PO SCH (22:25)
[2021-08-25] MEDS: metFORMIN HCL 500 MG TABLET (FP) PO SCH ×2 (06:41→18:25)
[2021-08-25] MEDS: chlordiazePOXIDE HCL 25 MG CAPSULE PO SCH ×4 (06:42→22:47)
[2021-08-25] MEDS: guaiFENesin 200 MG/10 ML 10 ML UNIT-DOSE CUPS PO PRN ×3 (06:44→18:31)
[2021-08-25] MEDS: COLCHICINE 0.6 MG CAP PO SCH (10:04)
[2021-08-25] MEDS: SERTRALINE HCL 50 MG TABLET (FP) PO SCH (10:04)
[2021-08-25] MEDS: METOPROLOL TARTRATE 100 MG, METOPROLOL TARTRATE 25 MG PO SCH ×2 (10:05→22:47)
[2021-08-25] MEDS: ALLOPURINOL 100 MG TABLET (FP) PO SCH (10:06)
[2021-08-25] MEDS: PRENATAL VITAMINS W/ FOLIC ACID TABLET (FP) PO SCH (10:06)
[2021-08-25] MEDS: PANTOPRAZOLE 40 MG TABLET PO SCH (10:06)
[2021-08-25] MEDS: NICOTINE 10 MG CARTRIDGE (INHALER) IH PRN (11:47)
[2021-08-25 12:37] LABS: SGOT/AST 63 U/L (15-37); SGPT/ALT 66 U/L (13-61)
[2021-08-25] MEDS: QUEtiapine FUMARATE 200 MG TABLET PO SCH (22:46)
[2021-08-25] MEDS: ATORVASTATIN CA 80 MG TABLET (FP) PO SCH (22:46)
[2021-08-25] MEDS: MELATONIN 5 MG TABLETS PO SCH (22:47)
[2021-08-25] MEDS: THIAMINE HCL 100 MG TABLET (FP) PO SCH (22:47)
[2021-08-25] MEDS: METHOCARBAMOL 500 MG TABLET PO PRN (22:51)
[2021-08-26] MEDS ORDERED: chlordiazePOXIDE HCL 10 MG CAPSULE PO PRN
[2021-08-26] MEDS: chlordiazePOXIDE HCL 10 MG CAPSULE PO SCH ×4 (05:40→22:39)
[2021-08-26] MEDS: metFORMIN HCL 500 MG TABLET (FP) PO SCH ×2 (06:13→17:51)
[2021-08-26] MEDS: PRENATAL VITAMINS W/ FOLIC ACID TABLET (FP) PO SCH (10:44)
[2021-08-26] MEDS: ALLOPURINOL 100 MG TABLET (FP) PO SCH (10:44)
[2021-08-26] MEDS: PANTOPRAZOLE 40 MG TABLET PO SCH (10:44)
[2021-08-26] MEDS: SERTRALINE HCL 50 MG TABLET (FP) PO SCH (10:44)
[2021-08-26] MEDS: METOPROLOL TARTRATE 100 MG, METOPROLOL TARTRATE 25 MG PO SCH ×2 (10:45→22:40)
[2021-08-26] MEDS: COLCHICINE 0.6 MG CAP PO SCH (10:45)
[2021-08-26] MEDS: MENTHOL/PHENOL 1 EACH UD MM PRN ×2 (11:19→22:45)
[2021-08-26] MEDS: NICOTINE 10 MG CARTRIDGE (INHALER) IH PRN (11:19)
[2021-08-26] MEDS: guaiFENesin 200 MG/10 ML 10 ML UNIT-DOSE CUPS PO PRN (17:53)
[2021-08-26] MEDS: ATORVASTATIN CA 80 MG TABLET (FP) PO SCH (22:40)
[2021-08-26] MEDS: QUEtiapine FUMARATE 200 MG TABLET PO SCH (22:41)
[2021-08-26] MEDS: THIAMINE HCL 100 MG TABLET (FP) PO SCH (22:41)
[2021-08-26] MEDS: MELATONIN 5 MG TABLETS PO SCH (22:41)
[2021-08-27] MEDS: chlordiazePOXIDE HCL 10 MG CAPSULE PO SCH ×2 (07:19→18:21)
[2021-08-27] MEDS: metFORMIN HCL 500 MG TABLET (FP) PO SCH ×2 (07:19→18:21)
[2021-08-27] MEDS: PRENATAL VITAMINS W/ FOLIC ACID TABLET (FP) PO SCH (10:36)
[2021-08-27] MEDS: METOPROLOL TARTRATE 100 MG, METOPROLOL TARTRATE 25 MG PO SCH ×2 (10:36→22:26)
[2021-08-27] MEDS: ALLOPURINOL 100 MG TABLET (FP) PO SCH (10:36)
[2021-08-27] MEDS: COLCHICINE 0.6 MG CAP PO SCH (10:36)
[2021-08-27] MEDS: SERTRALINE HCL 50 MG TABLET (FP) PO SCH (10:36)
[2021-08-27] MEDS: PANTOPRAZOLE 40 MG TABLET PO SCH (10:36)
[2021-08-27] MEDS: MENTHOL/PHENOL 1 EACH UD MM PRN ×2 (18:21→22:29)
[2021-08-27] MEDS: THIAMINE HCL 100 MG TABLET (FP) PO SCH (22:26)
[2021-08-27] MEDS: MELATONIN 5 MG TABLETS PO SCH (22:26)
[2021-08-27] MEDS: ATORVASTATIN CA 80 MG TABLET (FP) PO SCH (22:26)
[2021-08-27] MEDS: METHOCARBAMOL 500 MG TABLET PO PRN (22:27)
[2021-08-27] MEDS: QUEtiapine FUMARATE 200 MG TABLET PO SCH (22:27)
[2021-08-27] MEDS: IBUPROFEN 400 MG TABLET (FP) PO PRN (22:28)
[2021-08-28] MEDS ORDERED: chlordiazePOXIDE HCL 10 MG CAPSULE PO ONE (05:00)
[2021-08-28] MEDS: metFORMIN HCL 500 MG TABLET (FP) PO SCH (07:47)
[2021-08-28] MEDS: PANTOPRAZOLE 40 MG TABLET PO SCH (10:15)
[2021-08-28] MEDS: METOPROLOL TARTRATE 100 MG, METOPROLOL TARTRATE 25 MG PO SCH (10:15)
[2021-08-28] MEDS: COLCHICINE 0.6 MG CAP PO SCH (10:15)
[2021-08-28] MEDS: SERTRALINE HCL 50 MG TABLET (FP) PO SCH (10:15)
[2021-08-28] MEDS: PRENATAL VITAMINS W/ FOLIC ACID TABLET (FP) PO SCH (10:15)
[2021-08-28] MEDS: ALLOPURINOL 100 MG TABLET (FP) PO SCH (10:15)
[2021-08-28] MEDS: METHOCARBAMOL 500 MG TABLET PO PRN (10:18)
[2021-08-28] MEDS: NICOTINE 10 MG CARTRIDGE (INHALER) IH PRN (10:18)
[2021-08-28 13:32] VITALS: BP 128/76; PULSE 81; TEMP 97.7
== END 2021-08-28 15:04 | disposition other institution (70) | DRG 775 ==
LOC: YASAS 10:08 → Y3N 10:55
PROVIDERS: ADMIT Allergy & Immunology; ATTEND Allergy & Immunology
PROC: HZ2ZZZZ Detoxification Services for Substance Abuse Treatment (ICD-10-PCS; principal; 2021-08-23)
DX: F10.230 Alcohol dependence with withdrawal, uncomplicated (principal); F10.24 Alcohol dependence with alcohol-induced mood disorder; F10.282 Alcohol dependence with alcohol-induced sleep disorder; F10.280 Alcohol dependence with alcohol-induced anxiety disorder; F17.210 Nicotine dependence, cigarettes, uncomplicated; F33.9 Major depressive disorder, recurrent, unspecified; F19.24 Other psychoactive substance dependence with psychoactive substance-induced mood disorder; F20.9 Schizophrenia, unspecified; I10 Essential (primary) hypertension; E78.5 Hyperlipidemia, unspecified; K27.7 Chronic peptic ulcer, site unspecified, without hemorrhage or perforation; M1A.09X0 Idiopathic chronic gout, multiple sites, without tophus (tophi); R74.01 Elevation of levels of liver transaminase levels; R05.9 Cough, unspecified; R00.0 Tachycardia, unspecified; R07.89 Other chest pain; I45.81 Long QT syndrome; G47.00 Insomnia, unspecified; M19.90 Unspecified osteoarthritis, unspecified site; K21.9 Gastro-esophageal reflux disease without esophagitis; E66.01 Morbid (severe) obesity due to excess calories; Z68.36 Body mass index [BMI] 36.0-36.9, adult; Z88.8 Allergy status to other drugs, medicaments and biological substances; Z91.14 Patient's other noncompliance with medication regimen; Z56.0 Unemployment, unspecified
CPT/HCPCS: 36415; 80053; 82962; 84450; 84460; 85027; 86780; 93005; 93010; C9803; U0003; U0005

== ENCOUNTER 2021-08-28 15:13 | Inpatient (IN) | payer OTHER ==
[2021-08-28] MEDS ORDERED: MAG HYDROX/AL HYDROX/SIMETH 30 ML UNIT-DOSE CUP PO PRN (15:46)
[2021-08-28] MEDS ORDERED: NICOTINE POLACRILEX 2 MG GUM BUC PRN (15:46)
[2021-08-28] MEDS ORDERED: ACETAMINOPHEN 325 MG TABLET (FP) PO PRN (15:46)
[2021-08-28] MEDS ORDERED: LOPERAMIDE HCL 2 MG CAPSULE PO PRN (15:46)
[2021-08-28] MEDS ORDERED: MAGNESIUM CITRATE 300 ML BOTTLE PO PRN (15:46)
[2021-08-28] MEDS ORDERED: MAGNESIUM HYDROX 2400MG/30ML ORAL SUSPENSION 30 ML CUP PO PRN (15:46)
[2021-08-28] MEDS ORDERED: P-EPHED 60MG/TRIPROLIDI 2.5MG TABLET PO PRN (15:46)
[2021-08-28] MEDS: metFORMIN HCL 500 MG TABLET (FP) PO SCH (16:47)
[2021-08-28] MEDS: IBUPROFEN 400 MG TABLET (FP) PO PRN (16:49)
[2021-08-28] MEDS: MELATONIN 5 MG TABLETS PO SCH (21:14)
[2021-08-28] MEDS: ATORVASTATIN CA 40 MG TABLET (FP) PO SCH (21:14)
[2021-08-28] MEDS: THIAMINE HCL 100 MG TABLET (FP) PO SCH (21:15)
[2021-08-28] MEDS ORDERED: METOPROLOL TARTRATE 50 MG TABLET (FP) PO SCH (22:00)
[2021-08-28] MEDS ORDERED: QUEtiapine FUMARATE 200 MG TABLET PO SCH (22:00)
[2021-08-28] MEDS: MENTHOL/PHENOL 1 EACH UD MM PRN (22:05)
[2021-08-28] MEDS: METOPROLOL TARTRATE 100 MG, METOPROLOL TARTRATE 25 MG PO SCH (22:27)
[2021-08-29] MEDS: metFORMIN HCL 500 MG TABLET (FP) PO SCH ×2 (06:53→16:40)
[2021-08-29] MEDS: PANTOPRAZOLE 40 MG TABLET PO SCH (06:54)
[2021-08-29] MEDS ORDERED: PT OWN MED DRAWER 7, Y5N ONE (08:20)
[2021-08-29] MEDS: PRENATAL VITAMINS W/ FOLIC ACID TABLET (FP) PO SCH (10:06)
[2021-08-29] MEDS: ALLOPURINOL 100 MG TABLET (FP) PO SCH (10:06)
[2021-08-29] MEDS: SERTRALINE HCL 50 MG TABLET (FP) PO SCH (10:06)
[2021-08-29] MEDS: COLCHICINE 0.6 MG CAP PO SCH (11:02)
[2021-08-29] MEDS: METOPROLOL TARTRATE 100 MG, METOPROLOL TARTRATE 25 MG PO SCH ×2 (11:02→21:12)
[2021-08-29] MEDS: THIAMINE HCL 100 MG TABLET (FP) PO SCH (21:09)
[2021-08-29] MEDS: QUEtiapine FUMARATE 300 MG TABLET PO SCH (21:10)
[2021-08-29] MEDS: ATORVASTATIN CA 40 MG TABLET (FP) PO SCH (21:10)
[2021-08-29] MEDS: MELATONIN 5 MG TABLETS PO SCH (21:10)
[2021-08-29] MEDS: hydrOXYzine PAMOATE 25 MG CAPSULE (FP) PO PRN (21:12)
[2021-08-30] MEDS: PANTOPRAZOLE 40 MG TABLET PO SCH (06:45)
[2021-08-30] MEDS: metFORMIN HCL 500 MG TABLET (FP) PO SCH ×2 (06:45→16:54)
[2021-08-30] MEDS: METOPROLOL TARTRATE 100 MG, METOPROLOL TARTRATE 25 MG PO SCH ×2 (10:21→21:08)
[2021-08-30] MEDS: PRENATAL VITAMINS W/ FOLIC ACID TABLET (FP) PO SCH (10:21)
[2021-08-30] MEDS: COLCHICINE 0.6 MG CAP PO SCH (10:22)
[2021-08-30] MEDS: SERTRALINE HCL 50 MG TABLET (FP) PO SCH (10:22)
[2021-08-30] MEDS: ALLOPURINOL 100 MG TABLET (FP) PO SCH (10:22)
[2021-08-30] MEDS: IBUPROFEN 400 MG TABLET (FP) PO PRN (16:55)
[2021-08-30] MEDS: NICOTINE 10 MG CARTRIDGE (INHALER) IH PRN ×2 (16:56→21:08)
[2021-08-30] MEDS: MELATONIN 5 MG TABLETS PO SCH (21:08)
[2021-08-30] MEDS: THIAMINE HCL 100 MG TABLET (FP) PO SCH (21:08)
[2021-08-30] MEDS: ATORVASTATIN CA 40 MG TABLET (FP) PO SCH (21:08)
[2021-08-30] MEDS: QUEtiapine FUMARATE 300 MG TABLET PO SCH (21:08)
[2021-08-31] MEDS: PANTOPRAZOLE 40 MG TABLET PO SCH (06:54)
[2021-08-31] MEDS: metFORMIN HCL 500 MG TABLET (FP) PO SCH ×2 (06:54→16:36)
[2021-08-31] MEDS: MENTHOL/PHENOL 1 EACH UD MM PRN (06:56)
[2021-08-31] MEDS: ALLOPURINOL 100 MG TABLET (FP) PO SCH (10:10)
[2021-08-31] MEDS: SERTRALINE HCL 50 MG TABLET (FP) PO SCH (10:10)
[2021-08-31] MEDS: PRENATAL VITAMINS W/ FOLIC ACID TABLET (FP) PO SCH (10:10)
[2021-08-31] MEDS: COLCHICINE 0.6 MG CAP PO SCH (10:13)
[2021-08-31] MEDS: IBUPROFEN 400 MG TABLET (FP) PO PRN (10:13)
[2021-08-31] MEDS: METOPROLOL TARTRATE 100 MG, METOPROLOL TARTRATE 25 MG PO SCH ×2 (10:13→21:08)
[2021-08-31] MEDS: QUEtiapine FUMARATE 300 MG TABLET PO SCH (21:08)
[2021-08-31] MEDS: THIAMINE HCL 100 MG TABLET (FP) PO SCH (21:08)
[2021-08-31] MEDS: MELATONIN 5 MG TABLETS PO SCH (21:08)
[2021-08-31] MEDS: ATORVASTATIN CA 40 MG TABLET (FP) PO SCH (21:08)
[2021-08-31] MEDS: NICOTINE 10 MG CARTRIDGE (INHALER) IH PRN (21:10)
[2021-09-01] MEDS: PANTOPRAZOLE 40 MG TABLET PO SCH (06:38)
[2021-09-01] MEDS: metFORMIN HCL 500 MG TABLET (FP) PO SCH ×2 (06:38→17:11)
[2021-09-01] MEDS: PRENATAL VITAMINS W/ FOLIC ACID TABLET (FP) PO SCH (10:05)
[2021-09-01] MEDS: COLCHICINE 0.6 MG CAP PO SCH (10:05)
[2021-09-01] MEDS: ALLOPURINOL 100 MG TABLET (FP) PO SCH (10:06)
[2021-09-01] MEDS: SERTRALINE HCL 50 MG TABLET (FP) PO SCH (10:06)
[2021-09-01] MEDS: METOPROLOL TARTRATE 100 MG, METOPROLOL TARTRATE 25 MG PO SCH ×2 (10:07→21:12)
[2021-09-01] MEDS: hydrOXYzine PAMOATE 25 MG CAPSULE (FP) PO PRN (10:07)
[2021-09-01] MEDS: IBUPROFEN 400 MG TABLET (FP) PO PRN ×2 (10:09→21:14)
[2021-09-01] MEDS: NICOTINE 10 MG CARTRIDGE (INHALER) IH PRN (13:09)
[2021-09-01] MEDS: THIAMINE HCL 100 MG TABLET (FP) PO SCH (21:12)
[2021-09-01] MEDS: ATORVASTATIN CA 40 MG TABLET (FP) PO SCH (21:12)
[2021-09-01] MEDS: QUEtiapine FUMARATE 300 MG TABLET PO SCH (21:13)
[2021-09-01] MEDS: MELATONIN 5 MG TABLETS PO SCH (21:13)
[2021-09-02] MEDS: PANTOPRAZOLE 40 MG TABLET PO SCH (06:45)
[2021-09-02] MEDS: metFORMIN HCL 500 MG TABLET (FP) PO SCH ×2 (06:45→17:21)
[2021-09-02] MEDS: ALLOPURINOL 100 MG TABLET (FP) PO SCH (09:43)
[2021-09-02] MEDS: PRENATAL VITAMINS W/ FOLIC ACID TABLET (FP) PO SCH (09:43)
[2021-09-02] MEDS: METOPROLOL TARTRATE 100 MG, METOPROLOL TARTRATE 25 MG PO SCH ×2 (09:44→21:07)
[2021-09-02] MEDS: SERTRALINE HCL 50 MG TABLET (FP) PO SCH (09:44)
[2021-09-02] MEDS: COLCHICINE 0.6 MG CAP PO SCH (09:45)
[2021-09-02] MEDS: IBUPROFEN 400 MG TABLET (FP) PO PRN ×2 (09:47→21:09)
[2021-09-02] MEDS: ATORVASTATIN CA 40 MG TABLET (FP) PO SCH (21:07)
[2021-09-02] MEDS: QUEtiapine FUMARATE 300 MG TABLET PO SCH (21:08)
[2021-09-02] MEDS: MELATONIN 5 MG TABLETS PO SCH (21:08)
[2021-09-02] MEDS: hydrOXYzine PAMOATE 25 MG CAPSULE (FP) PO PRN (21:09)
[2021-09-02] MEDS: NICOTINE 10 MG CARTRIDGE (INHALER) IH PRN (21:11)
[2021-09-02] MEDS: THIAMINE HCL 100 MG TABLET (FP) PO SCH (21:59)
[2021-09-03] MEDS: metFORMIN HCL 500 MG TABLET (FP) PO SCH ×2 (06:58→18:08)
[2021-09-03] MEDS: PANTOPRAZOLE 40 MG TABLET PO SCH (06:58)
[2021-09-03] MEDS: PRENATAL VITAMINS W/ FOLIC ACID TABLET (FP) PO SCH (10:10)
[2021-09-03] MEDS: SERTRALINE HCL 50 MG TABLET (FP) PO SCH (10:10)
[2021-09-03] MEDS: METOPROLOL TARTRATE 100 MG, METOPROLOL TARTRATE 25 MG PO SCH ×2 (10:10→21:28)
[2021-09-03] MEDS: ALLOPURINOL 100 MG TABLET (FP) PO SCH (10:10)
[2021-09-03] MEDS: COLCHICINE 0.6 MG CAP PO SCH (10:11)
[2021-09-03 10:49] LABS: SGOT/AST 28 U/L (15-37); SGPT/ALT 37 U/L (13-61)
[2021-09-03] MEDS ORDERED: PT OWN MED DRAWER 7, Y5N ONE (19:28)
[2021-09-03] MEDS: ATORVASTATIN CA 40 MG TABLET (FP) PO SCH (21:28)
[2021-09-03] MEDS: THIAMINE HCL 100 MG TABLET (FP) PO SCH (21:28)
[2021-09-03] MEDS: QUEtiapine FUMARATE 300 MG TABLET PO SCH (21:28)
[2021-09-03] MEDS: MELATONIN 5 MG TABLETS PO SCH (21:28)
[2021-09-03] MEDS: IBUPROFEN 400 MG TABLET (FP) PO PRN (21:29)
[2021-09-03] MEDS: NICOTINE 10 MG CARTRIDGE (INHALER) IH PRN (21:31)
[2021-09-04] MEDS: PANTOPRAZOLE 40 MG TABLET PO SCH (06:51)
[2021-09-04] MEDS: metFORMIN HCL 500 MG TABLET (FP) PO SCH ×2 (06:51→17:05)
[2021-09-04] MEDS ORDERED: PT OWN MED DRAWER 7, Y5N ONE (08:45)
[2021-09-04] MEDS: SERTRALINE HCL 50 MG TABLET (FP) PO SCH (09:46)
[2021-09-04] MEDS: PRENATAL VITAMINS W/ FOLIC ACID TABLET (FP) PO SCH (09:46)
[2021-09-04] MEDS: METOPROLOL TARTRATE 100 MG, METOPROLOL TARTRATE 25 MG PO SCH ×2 (09:47→21:18)
[2021-09-04] MEDS: COLCHICINE 0.6 MG CAP PO SCH (09:48)
[2021-09-04] MEDS: ALLOPURINOL 100 MG TABLET (FP) PO SCH (09:48)
[2021-09-04] MEDS: ATORVASTATIN CA 40 MG TABLET (FP) PO SCH (21:18)
[2021-09-04] MEDS: MELATONIN 5 MG TABLETS PO SCH (21:18)
[2021-09-04] MEDS: QUEtiapine FUMARATE 300 MG TABLET PO SCH (21:18)
[2021-09-04] MEDS: THIAMINE HCL 100 MG TABLET (FP) PO SCH (21:18)
[2021-09-04] MEDS: IBUPROFEN 400 MG TABLET (FP) PO PRN (21:20)
[2021-09-05] MEDS: metFORMIN HCL 500 MG TABLET (FP) PO SCH ×2 (06:55→17:10)
[2021-09-05] MEDS: PANTOPRAZOLE 40 MG TABLET PO SCH (06:56)
[2021-09-05] MEDS: PRENATAL VITAMINS W/ FOLIC ACID TABLET (FP) PO SCH (09:51)
[2021-09-05] MEDS: SERTRALINE HCL 50 MG TABLET (FP) PO SCH (09:51)
[2021-09-05] MEDS: ALLOPURINOL 100 MG TABLET (FP) PO SCH (09:51)
[2021-09-05] MEDS: METOPROLOL TARTRATE 100 MG, METOPROLOL TARTRATE 25 MG PO SCH ×2 (09:52→21:10)
[2021-09-05] MEDS: COLCHICINE 0.6 MG CAP PO SCH (09:53)
[2021-09-05] MEDS: MELATONIN 5 MG TABLETS PO SCH (21:11)
[2021-09-05] MEDS: ATORVASTATIN CA 40 MG TABLET (FP) PO SCH (21:11)
[2021-09-05] MEDS: QUEtiapine FUMARATE 300 MG TABLET PO SCH (21:11)
[2021-09-05] MEDS: THIAMINE HCL 100 MG TABLET (FP) PO SCH (21:11)
[2021-09-05] MEDS: IBUPROFEN 400 MG TABLET (FP) PO PRN (21:11)
[2021-09-05] MEDS: guaiFENesin 200 MG/10 ML 10 ML UNIT-DOSE CUPS PO PRN (21:13)
[2021-09-06] MEDS: metFORMIN HCL 500 MG TABLET (FP) PO SCH ×2 (06:22→16:44)
[2021-09-06] MEDS: PANTOPRAZOLE 40 MG TABLET PO SCH (06:22)
[2021-09-06] MEDS: METOPROLOL TARTRATE 100 MG, METOPROLOL TARTRATE 25 MG PO SCH ×2 (09:35→21:08)
[2021-09-06] MEDS: SERTRALINE HCL 50 MG TABLET (FP) PO SCH (09:35)
[2021-09-06] MEDS: ALLOPURINOL 100 MG TABLET (FP) PO SCH (09:36)
[2021-09-06] MEDS: PRENATAL VITAMINS W/ FOLIC ACID TABLET (FP) PO SCH (09:36)
[2021-09-06] MEDS: COLCHICINE 0.6 MG CAP PO SCH (09:37)
[2021-09-06] MEDS: NICOTINE 10 MG CARTRIDGE (INHALER) IH PRN (09:38)
[2021-09-06] MEDS: IBUPROFEN 400 MG TABLET (FP) PO PRN (21:07)
[2021-09-06] MEDS: ATORVASTATIN CA 40 MG TABLET (FP) PO SCH (21:08)
[2021-09-06] MEDS: MELATONIN 5 MG TABLETS PO SCH (21:08)
[2021-09-06] MEDS: QUEtiapine FUMARATE 300 MG TABLET PO SCH (21:08)
[2021-09-06] MEDS: hydrOXYzine PAMOATE 25 MG CAPSULE (FP) PO PRN (21:08)
[2021-09-06] MEDS: THIAMINE HCL 100 MG TABLET (FP) PO SCH (21:08)
[2021-09-06] MEDS: guaiFENesin 200 MG/10 ML 10 ML UNIT-DOSE CUPS PO PRN (21:10)
[2021-09-07] MEDS: metFORMIN HCL 500 MG TABLET (FP) PO SCH (06:21)
[2021-09-07] MEDS: PANTOPRAZOLE 40 MG TABLET PO SCH (06:21)
[2021-09-07 07:08] VITALS: BP 141/87; PULSE 81; TEMP 97.8
[2021-09-07] MEDS: PRENATAL VITAMINS W/ FOLIC ACID TABLET (FP) PO SCH (09:37)
[2021-09-07] MEDS: ALLOPURINOL 100 MG TABLET (FP) PO SCH (09:37)
[2021-09-07] MEDS: SERTRALINE HCL 50 MG TABLET (FP) PO SCH (09:37)
[2021-09-07] MEDS: METOPROLOL TARTRATE 100 MG, METOPROLOL TARTRATE 25 MG PO SCH (09:39)
[2021-09-07] MEDS: COLCHICINE 0.6 MG CAP PO SCH (09:39)
[2021-09-07] MEDS: NICOTINE 10 MG CARTRIDGE (INHALER) IH PRN (09:41)
== END 2021-09-07 14:55 | disposition home or self-care (01) | DRG 772 ==
LOC: YASAS 15:13 → Y5N 15:15
PROVIDERS: ADMIT Allergy & Immunology; ATTEND Allergy & Immunology
PROC: HZ42ZZZ Group Counseling for Substance Abuse Treatment, Cognitive-Behavioral (ICD-10-PCS; principal; 2021-08-28)
DX: F10.20 Alcohol dependence, uncomplicated (principal); F10.24 Alcohol dependence with alcohol-induced mood disorder; F10.282 Alcohol dependence with alcohol-induced sleep disorder; F10.280 Alcohol dependence with alcohol-induced anxiety disorder; F17.210 Nicotine dependence, cigarettes, uncomplicated; F19.24 Other psychoactive substance dependence with psychoactive substance-induced mood disorder; F32.A Depression, unspecified; F20.9 Schizophrenia, unspecified; I10 Essential (primary) hypertension; E11.9 Type 2 diabetes mellitus without complications; K21.9 Gastro-esophageal reflux disease without esophagitis; D72.819 Decreased white blood cell count, unspecified; M19.90 Unspecified osteoarthritis, unspecified site; M1A.09X0 Idiopathic chronic gout, multiple sites, without tophus (tophi); Z79.84 Long term (current) use of oral hypoglycemic drugs
CPT/HCPCS: 36415; 82962; 84450; 84460

== ENCOUNTER 2021-10-16 10:12 | Inpatient (IN) | payer OTHER ==
[2021-10-16] MEDS ORDERED: MAGNESIUM HYDROX 2400MG/30ML ORAL SUSPENSION 30 ML CUP PO PRN (12:08)
[2021-10-16] MEDS ORDERED: MAG HYDROX/AL HYDROX/SIMETH 30 ML UNIT-DOSE CUP PO PRN (12:08)
[2021-10-16] MEDS ORDERED: ACETAMINOPHEN 325 MG TABLET (FP) PO PRN ×2 (12:08)
[2021-10-16] MEDS ORDERED: ONDANSETRON *ODT* 4 MG TABLET SL PRN (12:08)
[2021-10-16] MEDS ORDERED: MENTHOL/PHENOL 1 EACH UD MM PRN (12:08)
[2021-10-16] MEDS ORDERED: MAGNESIUM CITRATE 300 ML BOTTLE PO PRN (12:08)
[2021-10-16] MEDS ORDERED: chlordiazePOXIDE HCL 25 MG CAPSULE PO PRN (12:12)
[2021-10-16] MEDS ORDERED: chlordiazePOXIDE HCL 25 MG CAPSULE PO ONE (12:12)
[2021-10-16 12:50] VITALS: BMI 35.9
[2021-10-16] MEDS ORDERED: chlordiazePOXIDE HCL 25 MG CAPSULE ONE (15:08)
[2021-10-16] MEDS ORDERED: ACETAMINOPHEN 325 MG TABLET (FP) ONE (15:11)
[2021-10-16] MEDS: ALLOPURINOL 100 MG TABLET (FP) PO SCH (15:27)
[2021-10-16] MEDS: COLCHICINE 0.6 MG CAP PO SCH (15:27)
[2021-10-16] MEDS: METOPROLOL TARTRATE 50 MG TABLET (FP) PO SCH ×2 (15:27→22:17)
[2021-10-16] MEDS: chlordiazePOXIDE HCL 25 MG CAPSULE PO SCH ×2 (18:53→22:23)
[2021-10-16] MEDS: metFORMIN HCL 500 MG TABLET (FP) PO SCH (18:53)
[2021-10-16] MEDS: IBUPROFEN 400 MG TABLET (FP) PO PRN ×2 (18:57→22:26)
[2021-10-16] MEDS: hydrOXYzine PAMOATE 25 MG CAPSULE (FP) PO PRN (22:23)
[2021-10-16] MEDS: MELATONIN 5 MG TABLETS PO PRN (22:23)
[2021-10-16] MEDS: THIAMINE HCL 100 MG TABLET (FP) PO SCH (22:23)
[2021-10-16] MEDS: ATORVASTATIN CA 80 MG TABLET (FP) PO SCH (22:23)
[2021-10-17] MEDS: chlordiazePOXIDE HCL 25 MG CAPSULE PO SCH ×2 (05:52→11:06)
[2021-10-17] MEDS: metFORMIN HCL 500 MG TABLET (FP) PO SCH ×2 (06:34→18:23)
[2021-10-17] MEDS: BISMUTH SUBSALICYLATE 524 MG/30 ML PO PRN (08:57)
[2021-10-17 10:47] LABS: ALBUMIN 3.2 g/dl (3.4-5.0); BLOOD UREA NITROGEN 14.9 mg/dL (7-18); CALCIUM 8.7 mg/dL (8.5-10.1)
[2021-10-17 10:51] LABS: CREATININE 1.1 mg/dL (0.55-1.3)
[2021-10-17 10:53] LABS: BILIRUBIN,TOTAL 0.5 mg/dL (0.2-1); TOT PROT 6.5 g/dl (6.4-8.2)
[2021-10-17] MEDS: METOPROLOL TARTRATE 50 MG TABLET (FP) PO SCH ×2 (11:00→22:16)
[2021-10-17] MEDS: PANTOPRAZOLE 40 MG TABLET PO SCH (11:00)
[2021-10-17] MEDS: SERTRALINE HCL 50 MG TABLET (FP) PO SCH (11:00)
[2021-10-17] MEDS: PRENATAL VITAMINS W/ FOLIC ACID TABLET (FP) PO SCH (11:00)
[2021-10-17] MEDS: ALLOPURINOL 100 MG TABLET (FP) PO SCH (11:00)
[2021-10-17 11:05] LABS: HEMOGLOBIN 12.4 GM/dL (11.7-16.9); MCH 30.3 pg (25.7-33.7); MCHC 33.7 g/dl (32.0-35.9); MEAN CELL VOLUME 90.1 fl (80-96); MEAN PLT VOLUME 10.9 fl (7.5-11.1); PLATELET COUNT 102 10^3/uL (134-434); RDW 15.7 % (11.9-15.9); WHITE BLOOD COUNT 3.6 K/mm3 (4.0-10.0)
[2021-10-17] MEDS: COLCHICINE 0.6 MG CAP PO SCH (11:53)
[2021-10-17] MEDS ORDERED: LORazepam 0.5 MG TABLET PO PRN (14:57)
[2021-10-17] MEDS: LORazepam 1 MG TABLET PO SCH ×2 (18:24→22:16)
[2021-10-17] MEDS: hydrOXYzine PAMOATE 25 MG CAPSULE (FP) PO PRN (18:24)
[2021-10-17] MEDS: METHOCARBAMOL 500 MG TABLET PO PRN (18:26)
[2021-10-17] MEDS: QUEtiapine FUMARATE 400 MG TABLET PO SCH (22:16)
[2021-10-17] MEDS: THIAMINE HCL 100 MG TABLET (FP) PO SCH (22:16)
[2021-10-17] MEDS: ATORVASTATIN CA 80 MG TABLET (FP) PO SCH (22:16)
[2021-10-17] MEDS: IBUPROFEN 400 MG TABLET (FP) PO PRN (22:17)
[2021-10-17] MEDS: MELATONIN 5 MG TABLETS PO PRN (22:19)
[2021-10-18] MEDS ORDERED: chlordiazePOXIDE HCL 25 MG CAPSULE PO SCH (05:00)
[2021-10-18] MEDS: LORazepam 0.5 MG TABLET PO SCH ×4 (06:33→22:13)
[2021-10-18] MEDS: metFORMIN HCL 500 MG TABLET (FP) PO SCH ×2 (06:33→17:16)
[2021-10-18] MEDS: METOPROLOL TARTRATE 50 MG TABLET (FP) PO SCH ×2 (10:27→21:54)
[2021-10-18] MEDS: PRENATAL VITAMINS W/ FOLIC ACID TABLET (FP) PO SCH (10:27)
[2021-10-18] MEDS: hydrOXYzine PAMOATE 25 MG CAPSULE (FP) PO PRN (10:27)
[2021-10-18] MEDS: SERTRALINE HCL 50 MG TABLET (FP) PO SCH (10:27)
[2021-10-18] MEDS: PANTOPRAZOLE 40 MG TABLET PO SCH (10:27)
[2021-10-18] MEDS: ALLOPURINOL 100 MG TABLET (FP) PO SCH (10:30)
[2021-10-18] MEDS: COLCHICINE 0.6 MG CAP PO SCH (10:31)
[2021-10-18] MEDS: IBUPROFEN 400 MG TABLET (FP) PO PRN (10:33)
[2021-10-18] MEDS: NICOTINE 10 MG CARTRIDGE (INHALER) IH PRN ×2 (12:40→22:13)
[2021-10-18] MEDS: CELECOXIB 100 MG CAPSULE PO SCH ×2 (13:34→21:53)
[2021-10-18] MEDS: QUEtiapine FUMARATE 400 MG TABLET PO SCH (21:53)
[2021-10-18] MEDS: ATORVASTATIN CA 80 MG TABLET (FP) PO SCH (21:53)
[2021-10-18] MEDS: THIAMINE HCL 100 MG TABLET (FP) PO SCH (21:55)
[2021-10-18] MEDS: METHOCARBAMOL 500 MG TABLET PO PRN (22:12)
[2021-10-19] MEDS ORDERED: chlordiazePOXIDE HCL 10 MG CAPSULE PO PRN
[2021-10-19] MEDS ORDERED: chlordiazePOXIDE HCL 10 MG CAPSULE PO SCH (05:00)
[2021-10-19] MEDS: LORazepam 0.5 MG TABLET PO SCH ×3 (06:37→22:24)
[2021-10-19] MEDS: metFORMIN HCL 500 MG TABLET (FP) PO SCH ×2 (06:40→17:23)
[2021-10-19] MEDS: METHOCARBAMOL 500 MG TABLET PO PRN ×2 (06:42→13:17)
[2021-10-19] MEDS: SERTRALINE HCL 50 MG TABLET (FP) PO SCH (10:49)
[2021-10-19] MEDS: PRENATAL VITAMINS W/ FOLIC ACID TABLET (FP) PO SCH (10:49)
[2021-10-19] MEDS: hydrOXYzine PAMOATE 25 MG CAPSULE (FP) PO PRN ×2 (10:49→13:17)
[2021-10-19] MEDS: PANTOPRAZOLE 40 MG TABLET PO SCH (10:49)
[2021-10-19] MEDS: METOPROLOL TARTRATE 50 MG TABLET (FP) PO SCH ×2 (10:49→22:25)
[2021-10-19] MEDS: ALLOPURINOL 100 MG TABLET (FP) PO SCH (10:50)
[2021-10-19] MEDS: CELECOXIB 100 MG CAPSULE PO SCH ×2 (10:50→22:24)
[2021-10-19] MEDS: COLCHICINE 0.6 MG CAP PO SCH (10:50)
[2021-10-19] MEDS: BISMUTH SUBSALICYLATE 524 MG/30 ML PO PRN (10:51)
[2021-10-19] MEDS: INSULIN SLIDING SCALE (NOVOLOG) 1 VIAL SQ SCH ×2 (17:00→22:47)
[2021-10-19] MEDS: NICOTINE 10 MG CARTRIDGE (INHALER) IH PRN ×2 (17:24→22:28)
[2021-10-19] MEDS: THIAMINE HCL 100 MG TABLET (FP) PO SCH (22:24)
[2021-10-19] MEDS: QUEtiapine FUMARATE 400 MG TABLET PO SCH (22:25)
[2021-10-19] MEDS: ATORVASTATIN CA 80 MG TABLET (FP) PO SCH (22:25)
[2021-10-20] MEDS ORDERED: chlordiazePOXIDE HCL 10 MG CAPSULE PO SCH (05:00)
[2021-10-20] MEDS: LORazepam 0.5 MG TABLET PO SCH ×2 (06:24→17:01)
[2021-10-20] MEDS: metFORMIN HCL 500 MG TABLET (FP) PO SCH ×2 (06:24→16:59)
[2021-10-20] MEDS: INSULIN SLIDING SCALE (NOVOLOG) 1 VIAL SQ SCH ×4 (06:26→22:32)
[2021-10-20] MEDS: SERTRALINE HCL 50 MG TABLET (FP) PO SCH (10:23)
[2021-10-20] MEDS: METHOCARBAMOL 500 MG TABLET PO PRN ×3 (10:23→22:59)
[2021-10-20] MEDS: hydrOXYzine PAMOATE 25 MG CAPSULE (FP) PO PRN ×3 (10:23→22:59)
[2021-10-20] MEDS: PRENATAL VITAMINS W/ FOLIC ACID TABLET (FP) PO SCH (10:23)
[2021-10-20] MEDS: METOPROLOL TARTRATE 50 MG TABLET (FP) PO SCH ×2 (10:23→22:59)
[2021-10-20] MEDS: PANTOPRAZOLE 40 MG TABLET PO SCH (10:23)
[2021-10-20] MEDS: CELECOXIB 100 MG CAPSULE PO SCH ×2 (10:24→22:59)
[2021-10-20] MEDS: COLCHICINE 0.6 MG CAP PO SCH (10:24)
[2021-10-20] MEDS: ALLOPURINOL 100 MG TABLET (FP) PO SCH (10:25)
[2021-10-20] MEDS: NICOTINE 10 MG CARTRIDGE (INHALER) IH PRN (10:33)
[2021-10-20] MEDS ORDERED: INSULIN (NOVOLOG) ASPART 100 UNITS/ML 10ML VIAL ONE (16:53)
[2021-10-20] MEDS: QUEtiapine FUMARATE 400 MG TABLET PO SCH (22:59)
[2021-10-20] MEDS: ATORVASTATIN CA 80 MG TABLET (FP) PO SCH (22:59)
[2021-10-20] MEDS: THIAMINE HCL 100 MG TABLET (FP) PO SCH (22:59)
[2021-10-21] MEDS ORDERED: chlordiazePOXIDE HCL 10 MG CAPSULE PO ONE (05:00)
[2021-10-21] MEDS ORDERED: LORazepam 0.5 MG TABLET PO ONE (06:00)
[2021-10-21] MEDS: metFORMIN HCL 500 MG TABLET (FP) PO SCH ×2 (06:13→17:07)
[2021-10-21] MEDS: INSULIN SLIDING SCALE (NOVOLOG) 1 VIAL SQ SCH ×3 (07:04→17:00)
[2021-10-21] MEDS: CELECOXIB 100 MG CAPSULE PO SCH (10:31)
[2021-10-21] MEDS: METOPROLOL TARTRATE 50 MG TABLET (FP) PO SCH (10:31)
[2021-10-21] MEDS: ALLOPURINOL 100 MG TABLET (FP) PO SCH (10:31)
[2021-10-21] MEDS: SERTRALINE HCL 50 MG TABLET (FP) PO SCH (10:31)
[2021-10-21] MEDS: PANTOPRAZOLE 40 MG TABLET PO SCH (10:32)
[2021-10-21] MEDS: PRENATAL VITAMINS W/ FOLIC ACID TABLET (FP) PO SCH (10:32)
[2021-10-21] MEDS: hydrOXYzine PAMOATE 25 MG CAPSULE (FP) PO PRN ×2 (10:32→17:07)
[2021-10-21] MEDS: METHOCARBAMOL 500 MG TABLET PO PRN ×2 (10:34→17:07)
[2021-10-21] MEDS: COLCHICINE 0.6 MG CAP PO SCH (10:34)
[2021-10-21 13:29] VITALS: BP 135/94; PULSE 91; TEMP 97.8
[2021-10-21] MEDS: NICOTINE 10 MG CARTRIDGE (INHALER) IH PRN (17:07)
== END 2021-10-21 18:50 | disposition other institution (70) | DRG 775 ==
LOC: YASAS 10:12 → Y6N 16:47
PROVIDERS: ADMIT Allergy & Immunology; ATTEND Allergy & Immunology
PROC: HZ2ZZZZ Detoxification Services for Substance Abuse Treatment (ICD-10-PCS; principal; 2021-10-16)
DX: F10.230 Alcohol dependence with withdrawal, uncomplicated (principal); F10.280 Alcohol dependence with alcohol-induced anxiety disorder; F10.24 Alcohol dependence with alcohol-induced mood disorder; F20.9 Schizophrenia, unspecified; F10.282 Alcohol dependence with alcohol-induced sleep disorder; F17.210 Nicotine dependence, cigarettes, uncomplicated; I10 Essential (primary) hypertension; E78.5 Hyperlipidemia, unspecified; E11.9 Type 2 diabetes mellitus without complications; Z79.84 Long term (current) use of oral hypoglycemic drugs; K21.9 Gastro-esophageal reflux disease without esophagitis; M19.90 Unspecified osteoarthritis, unspecified site; M1A.09X0 Idiopathic chronic gout, multiple sites, without tophus (tophi); E66.9 Obesity, unspecified; Z68.35 Body mass index [BMI] 35.0-35.9, adult; Z88.7 Allergy status to serum and vaccine; Z87.11 Personal history of peptic ulcer disease; Z87.438 Personal history of other diseases of male genital organs
CPT/HCPCS: 36415; 80053; 82962; 83036; 85027; 86780; C9803; U0003; U0005

== ENCOUNTER 2021-10-21 19:34 | Inpatient (IN) | payer OTHER ==
[2021-10-21] MEDS ORDERED: P-EPHED 60MG/TRIPROLIDI 2.5MG TABLET PO PRN (21:16)
[2021-10-21] MEDS ORDERED: MAG HYDROX/AL HYDROX/SIMETH 30 ML UNIT-DOSE CUP PO PRN (21:16)
[2021-10-21] MEDS ORDERED: NICOTINE POLACRILEX 2 MG GUM BUC PRN (21:16)
[2021-10-21] MEDS ORDERED: MAGNESIUM CITRATE 300 ML BOTTLE PO PRN (21:16)
[2021-10-21] MEDS ORDERED: LOPERAMIDE HCL 2 MG CAPSULE PO PRN (21:16)
[2021-10-21] MEDS ORDERED: guaiFENesin 200 MG/10 ML 10 ML UNIT-DOSE CUPS PO PRN (21:16)
[2021-10-21] MEDS ORDERED: MAGNESIUM HYDROX 2400MG/30ML ORAL SUSPENSION 30 ML CUP PO PRN (21:16)
[2021-10-21] MEDS ORDERED: ACETAMINOPHEN 325 MG TABLET (FP) PO PRN (21:16)
[2021-10-21] MEDS ORDERED: ATORVASTATIN CA 40 MG TABLET (FP) ONE (21:45)
[2021-10-21] MEDS: ATORVASTATIN CA 80 MG TABLET (FP) PO SCH (21:56)
[2021-10-21] MEDS: MELATONIN 5 MG TABLETS PO PRN (21:56)
[2021-10-21] MEDS: THIAMINE HCL 100 MG TABLET (FP) PO SCH (21:56)
[2021-10-21] MEDS: METOPROLOL TARTRATE 50 MG TABLET (FP) PO SCH (21:56)
[2021-10-21] MEDS: hydrOXYzine PAMOATE 25 MG CAPSULE (FP) PO PRN (21:57)
[2021-10-22] MEDS: metFORMIN HCL 500 MG TABLET (FP) PO SCH ×2 (06:14→16:42)
[2021-10-22] MEDS: INSULIN SLIDING SCALE (NOVOLOG) 1 VIAL SQ SCH ×4 (06:15→21:39)
[2021-10-22] MEDS: MENTHOL/PHENOL 1 EACH UD MM PRN (06:16)
[2021-10-22] MEDS: PRENATAL VITAMINS W/ FOLIC ACID TABLET (FP) PO SCH (10:21)
[2021-10-22] MEDS: hydrOXYzine PAMOATE 25 MG CAPSULE (FP) PO PRN ×2 (10:22→21:38)
[2021-10-22] MEDS: SERTRALINE HCL 50 MG TABLET (FP) PO SCH (10:22)
[2021-10-22] MEDS: ALLOPURINOL 100 MG TABLET (FP) PO SCH (10:22)
[2021-10-22] MEDS: PANTOPRAZOLE 40 MG TABLET PO SCH (10:22)
[2021-10-22] MEDS: NICOTINE 7 MG/24 HOURS TOPICAL PATCH TD SCH (10:23)
[2021-10-22] MEDS: COLCHICINE 0.6 MG CAP PO SCH (10:23)
[2021-10-22] MEDS: METOPROLOL TARTRATE 50 MG TABLET (FP) PO SCH ×2 (10:23→21:37)
[2021-10-22] MEDS: NICOTINE 10 MG CARTRIDGE (INHALER) IH PRN (10:24)
[2021-10-22] MEDS: ATORVASTATIN CA 80 MG TABLET (FP) PO SCH (21:36)
[2021-10-22] MEDS: THIAMINE HCL 100 MG TABLET (FP) PO SCH (21:38)
[2021-10-22] MEDS: QUEtiapine FUMARATE 100 MG TABLET (FP) PO SCH (21:38)
[2021-10-22] MEDS ORDERED: QUEtiapine FUMARATE 400 MG TABLET PO SCH (22:00)
[2021-10-23] MEDS: metFORMIN HCL 500 MG TABLET (FP) PO SCH ×2 (06:44→16:30)
[2021-10-23] MEDS: INSULIN SLIDING SCALE (NOVOLOG) 1 VIAL SQ SCH ×4 (06:46→21:29)
[2021-10-23] MEDS: MENTHOL/PHENOL 1 EACH UD MM PRN ×2 (06:46→10:45)
[2021-10-23] MEDS: SERTRALINE HCL 50 MG TABLET (FP) PO SCH (10:40)
[2021-10-23] MEDS: ALLOPURINOL 100 MG TABLET (FP) PO SCH (10:40)
[2021-10-23] MEDS: PRENATAL VITAMINS W/ FOLIC ACID TABLET (FP) PO SCH (10:40)
[2021-10-23] MEDS: PANTOPRAZOLE 40 MG TABLET PO SCH (10:40)
[2021-10-23] MEDS: COLCHICINE 0.6 MG CAP PO SCH (10:41)
[2021-10-23] MEDS: NICOTINE 7 MG/24 HOURS TOPICAL PATCH TD SCH (10:41)
[2021-10-23] MEDS: IBUPROFEN 400 MG TABLET (FP) PO PRN ×2 (10:43→16:32)
[2021-10-23] MEDS: NICOTINE 10 MG CARTRIDGE (INHALER) IH PRN (10:45)
[2021-10-23] MEDS: METOPROLOL TARTRATE 50 MG TABLET (FP) PO SCH ×2 (12:42→21:29)
[2021-10-23 14:06] LABS: SARS-CoV-2 NAA Not Detected (Not Detected)
[2021-10-23] MEDS ORDERED: ATORVASTATIN CA 40 MG TABLET (FP) ONE (18:44)
[2021-10-23] MEDS: ATORVASTATIN CA 80 MG TABLET (FP) PO SCH (21:28)
[2021-10-23] MEDS: QUEtiapine FUMARATE 100 MG TABLET (FP) PO SCH (21:29)
[2021-10-23] MEDS: NYSTATIN 500,000 UNITS/5 ML SUSPENSION PO SCH (21:29)
[2021-10-23] MEDS: THIAMINE HCL 100 MG TABLET (FP) PO SCH (21:29)
[2021-10-24] MEDS: metFORMIN HCL 500 MG TABLET (FP) PO SCH ×2 (06:39→16:47)
[2021-10-24] MEDS: MENTHOL/PHENOL 1 EACH UD MM PRN ×2 (06:40→16:48)
[2021-10-24] MEDS: INSULIN SLIDING SCALE (NOVOLOG) 1 VIAL SQ SCH ×4 (06:42→21:07)
[2021-10-24] MEDS: NICOTINE 10 MG CARTRIDGE (INHALER) IH PRN (06:43)
[2021-10-24] MEDS: COLCHICINE 0.6 MG CAP PO SCH (10:10)
[2021-10-24] MEDS: NYSTATIN 500,000 UNITS/5 ML SUSPENSION PO SCH ×2 (10:11→21:04)
[2021-10-24] MEDS: PRENATAL VITAMINS W/ FOLIC ACID TABLET (FP) PO SCH (10:11)
[2021-10-24] MEDS: PANTOPRAZOLE 40 MG TABLET PO SCH (10:11)
[2021-10-24] MEDS: NICOTINE 7 MG/24 HOURS TOPICAL PATCH TD SCH (10:11)
[2021-10-24] MEDS: ALLOPURINOL 100 MG TABLET (FP) PO SCH (10:12)
[2021-10-24] MEDS: SERTRALINE HCL 50 MG TABLET (FP) PO SCH (10:12)
[2021-10-24] MEDS: IBUPROFEN 400 MG TABLET (FP) PO PRN (10:14)
[2021-10-24] MEDS: METOPROLOL TARTRATE 50 MG TABLET (FP) PO SCH ×2 (11:00→21:32)
[2021-10-24 12:51] LABS: HIV INTERPRETATION NEGATIVE (NEGATIVE)
[2021-10-24] MEDS ORDERED: ATORVASTATIN CA 40 MG TABLET (FP) ONE (19:01)
[2021-10-24] MEDS: ATORVASTATIN CA 80 MG TABLET (FP) PO SCH (21:04)
[2021-10-24] MEDS: QUEtiapine FUMARATE 100 MG TABLET (FP) PO SCH (21:04)
[2021-10-24] MEDS: THIAMINE HCL 100 MG TABLET (FP) PO SCH (21:04)
[2021-10-24] MEDS: MELATONIN 5 MG TABLETS PO PRN (21:04)
[2021-10-25] MEDS: metFORMIN HCL 500 MG TABLET (FP) PO SCH ×2 (06:04→16:36)
[2021-10-25] MEDS: INSULIN SLIDING SCALE (NOVOLOG) 1 VIAL SQ SCH ×4 (06:05→21:04)
[2021-10-25] MEDS: PANTOPRAZOLE 40 MG TABLET PO SCH (12:46)
[2021-10-25] MEDS: SERTRALINE HCL 50 MG TABLET (FP) PO SCH (12:46)
[2021-10-25] MEDS: METOPROLOL TARTRATE 50 MG TABLET (FP) PO SCH ×2 (12:47→21:46)
[2021-10-25] MEDS: COLCHICINE 0.6 MG CAP PO SCH (12:47)
[2021-10-25] MEDS: ALLOPURINOL 100 MG TABLET (FP) PO SCH (12:47)
[2021-10-25] MEDS: PRENATAL VITAMINS W/ FOLIC ACID TABLET (FP) PO SCH (12:48)
[2021-10-25] MEDS: NICOTINE 7 MG/24 HOURS TOPICAL PATCH TD SCH (12:48)
[2021-10-25] MEDS: IBUPROFEN 400 MG TABLET (FP) PO PRN ×2 (12:50→21:03)
[2021-10-25] MEDS ORDERED: ATORVASTATIN CA 40 MG TABLET (FP) ONE (18:44)
[2021-10-25] MEDS: MELATONIN 5 MG TABLETS PO PRN (21:03)
[2021-10-25] MEDS: ATORVASTATIN CA 80 MG TABLET (FP) PO SCH (21:03)
[2021-10-25] MEDS: THIAMINE HCL 100 MG TABLET (FP) PO SCH (21:03)
[2021-10-25] MEDS: QUEtiapine FUMARATE 100 MG TABLET (FP) PO SCH (21:03)
[2021-10-25] MEDS: MENTHOL/PHENOL 1 EACH UD MM PRN (21:05)
[2021-10-26] MEDS: metFORMIN HCL 500 MG TABLET (FP) PO SCH ×2 (06:14→16:42)
[2021-10-26] MEDS: INSULIN SLIDING SCALE (NOVOLOG) 1 VIAL SQ SCH ×4 (06:15→21:33)
[2021-10-26] MEDS: COLCHICINE 0.6 MG CAP PO SCH (09:30)
[2021-10-26] MEDS: SERTRALINE HCL 50 MG TABLET (FP) PO SCH (09:31)
[2021-10-26] MEDS: PANTOPRAZOLE 40 MG TABLET PO SCH (09:31)
[2021-10-26] MEDS: PRENATAL VITAMINS W/ FOLIC ACID TABLET (FP) PO SCH (09:31)
[2021-10-26] MEDS: NICOTINE 7 MG/24 HOURS TOPICAL PATCH TD SCH (09:31)
[2021-10-26] MEDS: METOPROLOL TARTRATE 50 MG TABLET (FP) PO SCH ×2 (09:31→21:32)
[2021-10-26] MEDS: ALLOPURINOL 100 MG TABLET (FP) PO SCH (09:32)
[2021-10-26] MEDS: NICOTINE 10 MG CARTRIDGE (INHALER) IH PRN (09:32)
[2021-10-26] MEDS ORDERED: ATORVASTATIN CA 40 MG TABLET (FP) ONE (18:42)
[2021-10-26] MEDS: THIAMINE HCL 100 MG TABLET (FP) PO SCH (21:32)
[2021-10-26] MEDS: MELATONIN 5 MG TABLETS PO PRN (21:32)
[2021-10-26] MEDS: ATORVASTATIN CA 80 MG TABLET (FP) PO SCH (21:33)
[2021-10-26] MEDS: QUEtiapine FUMARATE 100 MG TABLET (FP) PO SCH (21:33)
[2021-10-27] MEDS: metFORMIN HCL 500 MG TABLET (FP) PO SCH ×2 (06:02→17:05)
[2021-10-27] MEDS: INSULIN SLIDING SCALE (NOVOLOG) 1 VIAL SQ SCH ×4 (07:56→21:52)
[2021-10-27] MEDS: PANTOPRAZOLE 40 MG TABLET PO SCH (10:40)
[2021-10-27] MEDS: METOPROLOL TARTRATE 50 MG TABLET (FP) PO SCH ×2 (10:41→21:52)
[2021-10-27] MEDS: SERTRALINE HCL 50 MG TABLET (FP) PO SCH (10:41)
[2021-10-27] MEDS: COLCHICINE 0.6 MG CAP PO SCH (10:42)
[2021-10-27] MEDS: ALLOPURINOL 100 MG TABLET (FP) PO SCH (10:42)
[2021-10-27] MEDS: NICOTINE 7 MG/24 HOURS TOPICAL PATCH TD SCH (10:43)
[2021-10-27] MEDS: NICOTINE 10 MG CARTRIDGE (INHALER) IH PRN (10:43)
[2021-10-27] MEDS: PRENATAL VITAMINS W/ FOLIC ACID TABLET (FP) PO SCH (10:43)
[2021-10-27] MEDS ORDERED: INSULIN SLIDING SCALE (NOVOLOG) 1 VIAL SQ ONE ×2 (17:06→22:58)
[2021-10-27] MEDS ORDERED: ATORVASTATIN CA 40 MG TABLET (FP) ONE (18:35)
[2021-10-27] MEDS: QUEtiapine FUMARATE 100 MG TABLET (FP) PO SCH (21:51)
[2021-10-27] MEDS: ATORVASTATIN CA 80 MG TABLET (FP) PO SCH (21:51)
[2021-10-27] MEDS: THIAMINE HCL 100 MG TABLET (FP) PO SCH (21:52)
[2021-10-28] MEDS: metFORMIN HCL 500 MG TABLET (FP) PO SCH ×2 (06:08→16:49)
[2021-10-28] MEDS: INSULIN SLIDING SCALE (NOVOLOG) 1 VIAL SQ SCH ×4 (07:51→21:43)
[2021-10-28] MEDS: COLCHICINE 0.6 MG CAP PO SCH (10:28)
[2021-10-28] MEDS: METOPROLOL TARTRATE 50 MG TABLET (FP) PO SCH ×2 (10:29→21:41)
[2021-10-28] MEDS: PANTOPRAZOLE 40 MG TABLET PO SCH (10:29)
[2021-10-28] MEDS: SERTRALINE HCL 50 MG TABLET (FP) PO SCH (10:29)
[2021-10-28] MEDS: PRENATAL VITAMINS W/ FOLIC ACID TABLET (FP) PO SCH (10:29)
[2021-10-28] MEDS: NICOTINE 7 MG/24 HOURS TOPICAL PATCH TD SCH (10:30)
[2021-10-28] MEDS: ALLOPURINOL 100 MG TABLET (FP) PO SCH (10:30)
[2021-10-28] MEDS: NICOTINE 10 MG CARTRIDGE (INHALER) IH PRN (10:32)
[2021-10-28 10:52] LABS: BLOOD UREA NITROGEN 13.8 mg/dL (7-18)
[2021-10-28 10:53] LABS: ALBUMIN 3.4 g/dl (3.4-5.0); CALCIUM 9.5 mg/dL (8.5-10.1)
[2021-10-28 10:56] LABS: CREATININE 1.1 mg/dL (0.55-1.3)
[2021-10-28 10:57] LABS: BILIRUBIN,TOTAL 0.7 mg/dL (0.2-1)
[2021-10-28 10:58] LABS: TOT PROT 6.8 g/dl (6.4-8.2)
[2021-10-28 14:07] LABS: SARS-CoV-2 NAA Not Detected (Not Detected)
[2021-10-28] MEDS ORDERED: ATORVASTATIN CA 40 MG TABLET (FP) ONE (18:55)
[2021-10-28] MEDS: ATORVASTATIN CA 80 MG TABLET (FP) PO SCH (21:41)
[2021-10-28] MEDS: QUEtiapine FUMARATE 100 MG TABLET (FP) PO SCH (21:42)
[2021-10-28] MEDS: THIAMINE HCL 100 MG TABLET (FP) PO SCH (21:42)
[2021-10-29] MEDS: IBUPROFEN 400 MG TABLET (FP) PO PRN ×2 (06:07→21:02)
[2021-10-29] MEDS: metFORMIN HCL 500 MG TABLET (FP) PO SCH ×2 (06:07→16:38)
[2021-10-29] MEDS: INSULIN SLIDING SCALE (NOVOLOG) 1 VIAL SQ SCH ×4 (06:08→21:01)
[2021-10-29] MEDS: ALLOPURINOL 100 MG TABLET (FP) PO SCH (09:34)
[2021-10-29] MEDS: PRENATAL VITAMINS W/ FOLIC ACID TABLET (FP) PO SCH (09:34)
[2021-10-29] MEDS: METOPROLOL TARTRATE 50 MG TABLET (FP) PO SCH ×2 (09:35→21:00)
[2021-10-29] MEDS: SERTRALINE HCL 50 MG TABLET (FP) PO SCH (09:35)
[2021-10-29] MEDS: PANTOPRAZOLE 40 MG TABLET PO SCH (09:35)
[2021-10-29] MEDS: COLCHICINE 0.6 MG CAP PO SCH (09:35)
[2021-10-29] MEDS: NICOTINE 7 MG/24 HOURS TOPICAL PATCH TD SCH (09:36)
[2021-10-29] MEDS ORDERED: ATORVASTATIN CA 40 MG TABLET (FP) ONE (19:14)
[2021-10-29] MEDS: QUEtiapine FUMARATE 100 MG TABLET (FP) PO SCH (21:00)
[2021-10-29] MEDS: MELATONIN 5 MG TABLETS PO PRN (21:00)
[2021-10-29] MEDS: THIAMINE HCL 100 MG TABLET (FP) PO SCH (21:00)
[2021-10-29] MEDS: ATORVASTATIN CA 80 MG TABLET (FP) PO SCH (21:01)
[2021-10-30] MEDS: metFORMIN HCL 500 MG TABLET (FP) PO SCH ×2 (06:16→16:30)
[2021-10-30] MEDS: INSULIN SLIDING SCALE (NOVOLOG) 1 VIAL SQ SCH ×4 (06:46→21:35)
[2021-10-30] MEDS: COLCHICINE 0.6 MG CAP PO SCH (10:10)
[2021-10-30] MEDS: PRENATAL VITAMINS W/ FOLIC ACID TABLET (FP) PO SCH (10:11)
[2021-10-30] MEDS: NICOTINE 7 MG/24 HOURS TOPICAL PATCH TD SCH (10:11)
[2021-10-30] MEDS: METOPROLOL TARTRATE 50 MG TABLET (FP) PO SCH ×2 (10:11→21:32)
[2021-10-30] MEDS: ALLOPURINOL 100 MG TABLET (FP) PO SCH (10:11)
[2021-10-30] MEDS: PANTOPRAZOLE 40 MG TABLET PO SCH (10:11)
[2021-10-30] MEDS: SERTRALINE HCL 50 MG TABLET (FP) PO SCH (10:11)
[2021-10-30] MEDS: MENTHOL/PHENOL 1 EACH UD MM PRN ×2 (10:12→21:35)
[2021-10-30] MEDS ORDERED: ATORVASTATIN CA 20 MG TABLET (FP) ONE (18:33)
[2021-10-30] MEDS: MELATONIN 5 MG TABLETS PO PRN (21:32)
[2021-10-30] MEDS: QUEtiapine FUMARATE 100 MG TABLET (FP) PO SCH (21:32)
[2021-10-30] MEDS: THIAMINE HCL 100 MG TABLET (FP) PO SCH (21:32)
[2021-10-30] MEDS: IBUPROFEN 400 MG TABLET (FP) PO PRN (21:33)
[2021-10-30] MEDS: ATORVASTATIN CA 80 MG TABLET (FP) PO SCH (21:33)
[2021-10-31] MEDS: INSULIN SLIDING SCALE (NOVOLOG) 1 VIAL SQ SCH ×4 (07:06→22:26)
[2021-10-31] MEDS: metFORMIN HCL 500 MG TABLET (FP) PO SCH ×2 (07:06→17:22)
[2021-10-31] MEDS: PANTOPRAZOLE 40 MG TABLET PO SCH (10:06)
[2021-10-31] MEDS: ALLOPURINOL 100 MG TABLET (FP) PO SCH (10:06)
[2021-10-31] MEDS: SERTRALINE HCL 50 MG TABLET (FP) PO SCH (10:06)
[2021-10-31] MEDS: NICOTINE 7 MG/24 HOURS TOPICAL PATCH TD SCH (10:07)
[2021-10-31] MEDS: PRENATAL VITAMINS W/ FOLIC ACID TABLET (FP) PO SCH (10:07)
[2021-10-31] MEDS: METOPROLOL TARTRATE 50 MG TABLET (FP) PO SCH ×2 (10:07→21:58)
[2021-10-31] MEDS: COLCHICINE 0.6 MG CAP PO SCH (10:07)
[2021-10-31] MEDS: IBUPROFEN 400 MG TABLET (FP) PO PRN (17:55)
[2021-10-31] MEDS: ATORVASTATIN CA 80 MG TABLET (FP) PO SCH (21:57)
[2021-10-31] MEDS: THIAMINE HCL 100 MG TABLET (FP) PO SCH (21:57)
[2021-10-31] MEDS: QUEtiapine FUMARATE 100 MG TABLET (FP) PO SCH (21:58)
[2021-10-31] MEDS ORDERED: INSULIN SLIDING SCALE (NOVOLOG) 1 VIAL SQ ONE (22:28)
[2021-11-01] MEDS: INSULIN SLIDING SCALE (NOVOLOG) 1 VIAL SQ SCH ×4 (06:22→21:01)
[2021-11-01] MEDS: metFORMIN HCL 500 MG TABLET (FP) PO SCH ×2 (06:23→16:24)
[2021-11-01] MEDS: NICOTINE 7 MG/24 HOURS TOPICAL PATCH TD SCH (10:15)
[2021-11-01] MEDS: PANTOPRAZOLE 40 MG TABLET PO SCH (10:15)
[2021-11-01] MEDS: PRENATAL VITAMINS W/ FOLIC ACID TABLET (FP) PO SCH (10:15)
[2021-11-01] MEDS: METOPROLOL TARTRATE 50 MG TABLET (FP) PO SCH ×2 (10:15→21:01)
[2021-11-01] MEDS: ALLOPURINOL 100 MG TABLET (FP) PO SCH (10:15)
[2021-11-01] MEDS: SERTRALINE HCL 50 MG TABLET (FP) PO SCH (10:15)
[2021-11-01] MEDS: COLCHICINE 0.6 MG CAP PO SCH (10:15)
[2021-11-01] MEDS: NICOTINE 10 MG CARTRIDGE (INHALER) IH PRN (10:16)
[2021-11-01] MEDS ORDERED: ATORVASTATIN CA 40 MG TABLET (FP) ONE (18:40)
[2021-11-01] MEDS: IBUPROFEN 400 MG TABLET (FP) PO PRN (21:00)
[2021-11-01] MEDS: THIAMINE HCL 100 MG TABLET (FP) PO SCH (21:01)
[2021-11-01] MEDS: ATORVASTATIN CA 80 MG TABLET (FP) PO SCH (21:01)
[2021-11-01] MEDS: QUEtiapine FUMARATE 100 MG TABLET (FP) PO SCH (21:01)
[2021-11-01] MEDS: MELATONIN 5 MG TABLETS PO PRN (21:01)
[2021-11-01] MEDS: MENTHOL/PHENOL 1 EACH UD MM PRN (21:02)
[2021-11-02] MEDS: metFORMIN HCL 500 MG TABLET (FP) PO SCH ×2 (06:51→16:40)
[2021-11-02] MEDS: INSULIN SLIDING SCALE (NOVOLOG) 1 VIAL SQ SCH ×4 (06:52→21:21)
[2021-11-02] MEDS: PRENATAL VITAMINS W/ FOLIC ACID TABLET (FP) PO SCH (09:35)
[2021-11-02] MEDS: ALLOPURINOL 100 MG TABLET (FP) PO SCH (09:36)
[2021-11-02] MEDS: SERTRALINE HCL 50 MG TABLET (FP) PO SCH (09:36)
[2021-11-02] MEDS: PANTOPRAZOLE 40 MG TABLET PO SCH (09:37)
[2021-11-02] MEDS: COLCHICINE 0.6 MG CAP PO SCH (09:37)
[2021-11-02] MEDS: METOPROLOL TARTRATE 50 MG TABLET (FP) PO SCH ×2 (09:37→21:20)
[2021-11-02] MEDS: NICOTINE 7 MG/24 HOURS TOPICAL PATCH TD SCH (09:39)
[2021-11-02] MEDS ORDERED: ATORVASTATIN CA 40 MG TABLET (FP) ONE (18:54)
[2021-11-02] MEDS: ATORVASTATIN CA 80 MG TABLET (FP) PO SCH (21:19)
[2021-11-02] MEDS: THIAMINE HCL 100 MG TABLET (FP) PO SCH (21:19)
[2021-11-02] MEDS: QUEtiapine FUMARATE 100 MG TABLET (FP) PO SCH (21:19)
[2021-11-02] MEDS: MELATONIN 5 MG TABLETS PO PRN (21:19)
[2021-11-03] MEDS: INSULIN SLIDING SCALE (NOVOLOG) 1 VIAL SQ SCH ×4 (06:20→21:28)
[2021-11-03] MEDS: metFORMIN HCL 500 MG TABLET (FP) PO SCH ×2 (06:20→16:42)
[2021-11-03] MEDS: ALLOPURINOL 100 MG TABLET (FP) PO SCH (10:58)
[2021-11-03] MEDS: PRENATAL VITAMINS W/ FOLIC ACID TABLET (FP) PO SCH (10:58)
[2021-11-03] MEDS: SERTRALINE HCL 50 MG TABLET (FP) PO SCH (10:58)
[2021-11-03] MEDS: METOPROLOL TARTRATE 50 MG TABLET (FP) PO SCH ×2 (10:59→21:25)
[2021-11-03] MEDS: COLCHICINE 0.6 MG CAP PO SCH (11:00)
[2021-11-03] MEDS: PANTOPRAZOLE 40 MG TABLET PO SCH (11:00)
[2021-11-03] MEDS: IBUPROFEN 400 MG TABLET (FP) PO PRN (11:03)
[2021-11-03] MEDS: NICOTINE 7 MG/24 HOURS TOPICAL PATCH TD SCH (11:05)
[2021-11-03] MEDS ORDERED: ATORVASTATIN CA 40 MG TABLET (FP) ONE (18:41)
[2021-11-03] MEDS: MELATONIN 5 MG TABLETS PO PRN (21:24)
[2021-11-03] MEDS: THIAMINE HCL 100 MG TABLET (FP) PO SCH (21:24)
[2021-11-03] MEDS: QUEtiapine FUMARATE 100 MG TABLET (FP) PO SCH (21:24)
[2021-11-03] MEDS: ATORVASTATIN CA 80 MG TABLET (FP) PO SCH (21:24)
[2021-11-04] MEDS: metFORMIN HCL 500 MG TABLET (FP) PO SCH ×2 (06:22→16:38)
[2021-11-04] MEDS: INSULIN SLIDING SCALE (NOVOLOG) 1 VIAL SQ SCH ×4 (06:23→21:34)
[2021-11-04] MEDS: PANTOPRAZOLE 40 MG TABLET PO SCH (10:37)
[2021-11-04] MEDS: ALLOPURINOL 100 MG TABLET (FP) PO SCH (10:37)
[2021-11-04] MEDS: SERTRALINE HCL 50 MG TABLET (FP) PO SCH (10:37)
[2021-11-04] MEDS: PRENATAL VITAMINS W/ FOLIC ACID TABLET (FP) PO SCH (10:37)
[2021-11-04] MEDS: METOPROLOL TARTRATE 50 MG TABLET (FP) PO SCH ×2 (10:37→21:32)
[2021-11-04] MEDS: NICOTINE 7 MG/24 HOURS TOPICAL PATCH TD SCH (10:38)
[2021-11-04] MEDS: IBUPROFEN 400 MG TABLET (FP) PO PRN (10:38)
[2021-11-04] MEDS: COLCHICINE 0.6 MG CAP PO SCH (10:38)
[2021-11-04] MEDS ORDERED: ATORVASTATIN CA 40 MG TABLET (FP) ONE (18:51)
[2021-11-04] MEDS: THIAMINE HCL 100 MG TABLET (FP) PO SCH (21:31)
[2021-11-04] MEDS: MELATONIN 5 MG TABLETS PO PRN (21:31)
[2021-11-04] MEDS: ATORVASTATIN CA 80 MG TABLET (FP) PO SCH (21:32)
[2021-11-04] MEDS: QUEtiapine FUMARATE 100 MG TABLET (FP) PO SCH (21:32)
[2021-11-05] MEDS: INSULIN SLIDING SCALE (NOVOLOG) 1 VIAL SQ SCH ×4 (07:06→21:23)
[2021-11-05] MEDS: metFORMIN HCL 500 MG TABLET (FP) PO SCH ×2 (07:06→16:33)
[2021-11-05] MEDS: SERTRALINE HCL 50 MG TABLET (FP) PO SCH (10:14)
[2021-11-05] MEDS: METOPROLOL TARTRATE 50 MG TABLET (FP) PO SCH ×2 (10:14→21:19)
[2021-11-05] MEDS: ALLOPURINOL 100 MG TABLET (FP) PO SCH (10:14)
[2021-11-05] MEDS: PRENATAL VITAMINS W/ FOLIC ACID TABLET (FP) PO SCH (10:14)
[2021-11-05] MEDS: PANTOPRAZOLE 40 MG TABLET PO SCH (10:15)
[2021-11-05] MEDS: NICOTINE 7 MG/24 HOURS TOPICAL PATCH TD SCH (10:15)
[2021-11-05] MEDS: COLCHICINE 0.6 MG CAP PO SCH (10:15)
[2021-11-05] MEDS: QUEtiapine FUMARATE 100 MG TABLET (FP) PO SCH (21:19)
[2021-11-05] MEDS: ATORVASTATIN CA 80 MG TABLET (FP) PO SCH (21:19)
[2021-11-05] MEDS: THIAMINE HCL 100 MG TABLET (FP) PO SCH (21:19)
[2021-11-06] MEDS: metFORMIN HCL 500 MG TABLET (FP) PO SCH ×2 (06:35→17:26)
[2021-11-06] MEDS: INSULIN SLIDING SCALE (NOVOLOG) 1 VIAL SQ SCH ×4 (06:37→23:59)
[2021-11-06] MEDS: PRENATAL VITAMINS W/ FOLIC ACID TABLET (FP) PO SCH (10:24)
[2021-11-06] MEDS: ALLOPURINOL 100 MG TABLET (FP) PO SCH (11:00)
[2021-11-06] MEDS: COLCHICINE 0.6 MG CAP PO SCH (11:00)
[2021-11-06] MEDS: METOPROLOL TARTRATE 50 MG TABLET (FP) PO SCH ×2 (11:16→23:59)
[2021-11-06] MEDS: SERTRALINE HCL 50 MG TABLET (FP) PO SCH (11:16)
[2021-11-06] MEDS: PANTOPRAZOLE 40 MG TABLET PO SCH (12:16)
[2021-11-06] MEDS: NICOTINE 7 MG/24 HOURS TOPICAL PATCH TD SCH (12:16)
[2021-11-06] MEDS: QUEtiapine FUMARATE 100 MG TABLET (FP) PO SCH (23:59)
[2021-11-06] MEDS: THIAMINE HCL 100 MG TABLET (FP) PO SCH (23:59)
[2021-11-06] MEDS: ATORVASTATIN CA 80 MG TABLET (FP) PO SCH (23:59)
[2021-11-07 06:51] VITALS: BP 115/75; PULSE 84; TEMP 98.8
[2021-11-07] MEDS: metFORMIN HCL 500 MG TABLET (FP) PO SCH (07:04)
[2021-11-07] MEDS: INSULIN SLIDING SCALE (NOVOLOG) 1 VIAL SQ SCH (07:05)
[2021-11-07] MEDS: ALLOPURINOL 100 MG TABLET (FP) PO SCH (09:47)
[2021-11-07] MEDS: COLCHICINE 0.6 MG CAP PO SCH (09:47)
[2021-11-07] MEDS: SERTRALINE HCL 50 MG TABLET (FP) PO SCH (09:47)
[2021-11-07] MEDS: PRENATAL VITAMINS W/ FOLIC ACID TABLET (FP) PO SCH (09:48)
[2021-11-07] MEDS: NICOTINE 7 MG/24 HOURS TOPICAL PATCH TD SCH (09:48)
[2021-11-07] MEDS: METOPROLOL TARTRATE 50 MG TABLET (FP) PO SCH (09:48)
[2021-11-07] MEDS: PANTOPRAZOLE 40 MG TABLET PO SCH (09:48)
[2021-11-07] MEDS: IBUPROFEN 400 MG TABLET (FP) PO PRN (09:51)
== END 2021-11-07 10:23 | disposition home or self-care (01) | DRG 772 ==
LOC: Y3W 19:34
PROVIDERS: ADMIT Allergy & Immunology; ATTEND Allergy & Immunology
PROC: HZ42ZZZ Group Counseling for Substance Abuse Treatment, Cognitive-Behavioral (ICD-10-PCS; principal; 2021-10-21)
DX: F10.20 Alcohol dependence, uncomplicated (principal); F17.210 Nicotine dependence, cigarettes, uncomplicated; I10 Essential (primary) hypertension; M10.9 Gout, unspecified; E11.9 Type 2 diabetes mellitus without complications; Z79.84 Long term (current) use of oral hypoglycemic drugs; K14.3 Hypertrophy of tongue papillae; Z88.7 Allergy status to serum and vaccine
CPT/HCPCS: 36415; 80053; 82962; 86803; 87389; C9803; U0003; U0005

== ENCOUNTER 2022-01-23 12:25 | Inpatient (IN) | payer OTHER ==
[2022-01-23] MEDS ORDERED: METHOCARBAMOL 500 MG TABLET PO PRN (12:58)
[2022-01-23] MEDS ORDERED: MAGNESIUM CITRATE 300 ML BOTTLE PO PRN (12:58)
[2022-01-23] MEDS ORDERED: ONDANSETRON *ODT* 4 MG TABLET SL PRN (12:58)
[2022-01-23] MEDS ORDERED: NICOTINE 10 MG CARTRIDGE (INHALER) IH PRN (12:58)
[2022-01-23] MEDS ORDERED: ACETAMINOPHEN 325 MG TABLET (FP) PO PRN ×2 (12:58)
[2022-01-23] MEDS ORDERED: BENZOCAINE/MENTHOL (CHLORASEPTIC ) LOZENGE MM PRN (12:58)
[2022-01-23] MEDS ORDERED: LOPERAMIDE HCL 2 MG CAPSULE PO PRN (12:58)
[2022-01-23] MEDS ORDERED: DICYCLOMINE HCL 10 MG CAPSULE PO PRN (12:58)
[2022-01-23] MEDS ORDERED: BISMUTH SUBSALICYLATE 262 MG/15 ML BTL PO PRN (12:58)
[2022-01-23] MEDS ORDERED: MAG HYDROX/AL HYDROX/SIMETH 30 ML UNIT-DOSE CUP PO PRN (12:58)
[2022-01-23] MEDS ORDERED: MAGNESIUM HYDROX 2400MG/30ML ORAL SUSPENSION 30 ML CUP PO PRN (12:58)
[2022-01-23] MEDS ORDERED: chlordiazePOXIDE HCL 25 MG CAPSULE PO PRN (12:58)
[2022-01-23] MEDS ORDERED: SERTRALINE HCL 50 MG TABLET (FP) PO ONE (13:05)
[2022-01-23 13:15] VITALS: BMI 38.0
[2022-01-23] MEDS: METOPROLOL TARTRATE 50 MG TABLET (FP) PO SCH ×2 (15:59→22:30)
[2022-01-23] MEDS: PANTOPRAZOLE 40 MG TABLET PO SCH (16:00)
[2022-01-23] MEDS: chlordiazePOXIDE HCL 25 MG CAPSULE PO SCH ×2 (16:02→22:30)
[2022-01-23] MEDS: hydrOXYzine PAMOATE 25 MG CAPSULE (FP) PO SCH ×3 (16:04→22:31)
[2022-01-23] MEDS: IBUPROFEN 400 MG TABLET (FP) PO PRN ×2 (16:04→22:35)
[2022-01-23] MEDS: metFORMIN HCL 500 MG TABLET (FP) PO SCH (18:00)
[2022-01-23] MEDS: ALLOPURINOL 100 MG TABLET (FP) PO SCH (20:07)
[2022-01-23] MEDS: COLCHICINE 0.6 MG CAP PO SCH (20:08)
[2022-01-23] MEDS ORDERED: QUEtiapine FUMARATE 300 MG TABLET PO ONE (22:00)
[2022-01-23] MEDS: ATORVASTATIN CA 80 MG TABLET (FP) PO SCH (22:30)
[2022-01-23] MEDS: THIAMINE HCL 100 MG TABLET (FP) PO SCH (22:30)
[2022-01-23] MEDS: MELATONIN 5 MG TABLETS PO SCH (22:33)
[2022-01-24] MEDS: hydrOXYzine PAMOATE 25 MG CAPSULE (FP) PO SCH ×5 (05:33→22:51)
[2022-01-24] MEDS: chlordiazePOXIDE HCL 25 MG CAPSULE PO SCH (05:33)
[2022-01-24] MEDS: metFORMIN HCL 500 MG TABLET (FP) PO SCH ×2 (06:15→17:47)
[2022-01-24 10:02] LABS: HEMATOCRIT 40.4 % (35.4-49); HEMOGLOBIN 13.6 GM/dL (11.7-16.9); MCH 30.8 pg (25.7-33.7); MCHC 33.6 g/dl (32.0-35.9); MEAN CELL VOLUME 91.7 fl (80-96); MEAN PLT VOLUME 11.4 fl (7.5-11.1); PLATELET COUNT 159 10^3/uL (134-434); RBC 4.41 M/mm3 (4.00-5.60); RDW 15.8 % (11.9-15.9); WHITE BLOOD COUNT 3.7 K/mm3 (4.0-10.0)
[2022-01-24 10:14] LABS: ALBUMIN 3.7 g/dl (3.4-5.0); CALCIUM 9.5 mg/dL (8.5-10.1)
[2022-01-24 10:18] LABS: BILIRUBIN,TOTAL 0.6 mg/dL (0.2-1); CREATININE 1.1 mg/dL (0.55-1.3); TOT PROT 7.4 g/dl (6.4-8.2)
[2022-01-24] MEDS: METOPROLOL TARTRATE 50 MG TABLET (FP) PO SCH ×2 (10:48→22:51)
[2022-01-24] MEDS: ALLOPURINOL 100 MG TABLET (FP) PO SCH (10:49)
[2022-01-24] MEDS: COLCHICINE 0.6 MG CAP PO SCH (10:49)
[2022-01-24] MEDS: PANTOPRAZOLE 40 MG TABLET PO SCH (10:49)
[2022-01-24] MEDS: PRENATAL VITAMINS W/ FOLIC ACID TABLET (FP) PO SCH (10:49)
[2022-01-24] MEDS ORDERED: SERTRALINE HCL 50 MG TABLET (FP) PO ONE (11:14)
[2022-01-24] MEDS: chlordiazePOXIDE 5 MG CAPSULE PO SCH ×2 (17:48→22:52)
[2022-01-24] MEDS ORDERED: QUEtiapine FUMARATE 200 MG TABLET PO SCH (22:00)
[2022-01-24] MEDS ORDERED: QUEtiapine FUMARATE 300 MG TABLET PO SCH (22:00)
[2022-01-24] MEDS: THIAMINE HCL 100 MG TABLET (FP) PO SCH (22:51)
[2022-01-24] MEDS: MELATONIN 5 MG TABLETS PO SCH (22:52)
[2022-01-24] MEDS: ATORVASTATIN CA 80 MG TABLET (FP) PO SCH (22:52)
[2022-01-25] MEDS: chlordiazePOXIDE HCL 25 MG CAPSULE PO SCH ×4 (06:01→22:25)
[2022-01-25] MEDS: hydrOXYzine PAMOATE 25 MG CAPSULE (FP) PO SCH ×5 (06:01→22:23)
[2022-01-25] MEDS: metFORMIN HCL 500 MG TABLET (FP) PO SCH ×2 (06:01→17:39)
[2022-01-25] MEDS: IBUPROFEN 400 MG TABLET (FP) PO PRN ×2 (06:08→19:23)
[2022-01-25 10:07] LABS: SARS-CoV-2 NAA Not Detected (Not Detected)
[2022-01-25] MEDS: PRENATAL VITAMINS W/ FOLIC ACID TABLET (FP) PO SCH (10:28)
[2022-01-25] MEDS: SERTRALINE HCL 50 MG TABLET (FP) PO SCH (10:29)
[2022-01-25] MEDS: ALLOPURINOL 100 MG TABLET (FP) PO SCH (10:29)
[2022-01-25] MEDS: PANTOPRAZOLE 40 MG TABLET PO SCH (10:29)
[2022-01-25] MEDS: METOPROLOL TARTRATE 50 MG TABLET (FP) PO SCH ×2 (10:29→22:22)
[2022-01-25] MEDS: COLCHICINE 0.6 MG CAP PO SCH (10:29)
[2022-01-25] MEDS: amLODIPine BESYLATE 5 MG TABLET (FP) PO SCH (11:53)
[2022-01-25] MEDS: INSULIN SLIDING SCALE (NOVOLOG) 1 VIAL SQ SCH (17:09)
[2022-01-25] MEDS: THIAMINE HCL 100 MG TABLET (FP) PO SCH (22:22)
[2022-01-25] MEDS: OSELTAMIVIR PHOSPHATE 75 MG CAPSULE PO SCH (22:22)
[2022-01-25] MEDS: QUEtiapine FUMARATE 300 MG TABLET PO SCH (22:23)
[2022-01-25] MEDS: ATORVASTATIN CA 80 MG TABLET (FP) PO SCH (22:24)
[2022-01-25] MEDS: MELATONIN 5 MG TABLETS PO SCH (22:25)
[2022-01-26] MEDS ORDERED: chlordiazePOXIDE HCL 10 MG CAPSULE PO PRN
[2022-01-26] MEDS: chlordiazePOXIDE HCL 10 MG CAPSULE PO SCH ×4 (07:03→22:43)
[2022-01-26] MEDS: hydrOXYzine PAMOATE 25 MG CAPSULE (FP) PO SCH ×5 (07:03→22:43)
[2022-01-26] MEDS: metFORMIN HCL 500 MG TABLET (FP) PO SCH ×2 (07:03→17:29)
[2022-01-26] MEDS: INSULIN SLIDING SCALE (NOVOLOG) 1 VIAL SQ SCH ×2 (07:04→17:29)
[2022-01-26] MEDS: ALLOPURINOL 100 MG TABLET (FP) PO SCH (10:19)
[2022-01-26] MEDS: SERTRALINE HCL 50 MG TABLET (FP) PO SCH (10:19)
[2022-01-26] MEDS: OSELTAMIVIR PHOSPHATE 75 MG CAPSULE PO SCH ×2 (10:19→22:42)
[2022-01-26] MEDS: PANTOPRAZOLE 40 MG TABLET PO SCH (10:19)
[2022-01-26] MEDS: amLODIPine BESYLATE 5 MG TABLET (FP) PO SCH (10:19)
[2022-01-26] MEDS: METOPROLOL TARTRATE 50 MG TABLET (FP) PO SCH ×2 (10:19→22:42)
[2022-01-26] MEDS: COLCHICINE 0.6 MG CAP PO SCH (10:20)
[2022-01-26] MEDS: PRENATAL VITAMINS W/ FOLIC ACID TABLET (FP) PO SCH (10:20)
[2022-01-26] MEDS ORDERED: INSULIN (NOVOLOG) ASPART 100 UNITS/ML 10ML VIAL ONE (17:25)
[2022-01-26] MEDS: THIAMINE HCL 100 MG TABLET (FP) PO SCH (22:42)
[2022-01-26] MEDS: ATORVASTATIN CA 80 MG TABLET (FP) PO SCH (22:42)
[2022-01-26] MEDS: QUEtiapine FUMARATE 300 MG TABLET PO SCH (22:42)
[2022-01-26] MEDS: MELATONIN 5 MG TABLETS PO SCH (22:43)
[2022-01-26] MEDS: IBUPROFEN 400 MG TABLET (FP) PO PRN (22:48)
[2022-01-27] MEDS: INSULIN SLIDING SCALE (NOVOLOG) 1 VIAL SQ SCH ×2 (06:42→17:41)
[2022-01-27] MEDS: chlordiazePOXIDE HCL 10 MG CAPSULE PO SCH ×2 (06:42→17:39)
[2022-01-27] MEDS: hydrOXYzine PAMOATE 25 MG CAPSULE (FP) PO SCH ×5 (06:42→22:33)
[2022-01-27] MEDS: metFORMIN HCL 500 MG TABLET (FP) PO SCH ×2 (07:55→17:39)
[2022-01-27] MEDS: COLCHICINE 0.6 MG CAP PO SCH (10:29)
[2022-01-27] MEDS: ALLOPURINOL 100 MG TABLET (FP) PO SCH (10:29)
[2022-01-27] MEDS: SERTRALINE HCL 50 MG TABLET (FP) PO SCH (10:29)
[2022-01-27] MEDS: METOPROLOL TARTRATE 50 MG TABLET (FP) PO SCH ×2 (10:29→22:32)
[2022-01-27] MEDS: PANTOPRAZOLE 40 MG TABLET PO SCH (10:29)
[2022-01-27] MEDS: OSELTAMIVIR PHOSPHATE 75 MG CAPSULE PO SCH ×2 (10:29→22:32)
[2022-01-27] MEDS: amLODIPine BESYLATE 5 MG TABLET (FP) PO SCH (10:29)
[2022-01-27] MEDS: PRENATAL VITAMINS W/ FOLIC ACID TABLET (FP) PO SCH (10:30)
[2022-01-27] MEDS: IBUPROFEN 400 MG TABLET (FP) PO PRN (17:43)
[2022-01-27] MEDS: ATORVASTATIN CA 80 MG TABLET (FP) PO SCH (22:32)
[2022-01-27] MEDS: MELATONIN 5 MG TABLETS PO SCH (22:33)
[2022-01-27] MEDS: QUEtiapine FUMARATE 300 MG TABLET PO SCH (22:33)
[2022-01-27] MEDS: THIAMINE HCL 100 MG TABLET (FP) PO SCH (22:33)
[2022-01-28] MEDS ORDERED: chlordiazePOXIDE HCL 10 MG CAPSULE PO ONE (05:00)
[2022-01-28] MEDS: hydrOXYzine PAMOATE 25 MG CAPSULE (FP) PO SCH ×2 (05:07→10:40)
[2022-01-28] MEDS: INSULIN SLIDING SCALE (NOVOLOG) 1 VIAL SQ SCH (06:19)
[2022-01-28] MEDS: metFORMIN HCL 500 MG TABLET (FP) PO SCH (06:19)
[2022-01-28 09:17] VITALS: BP 129/68; PULSE 81; TEMP 96.9
[2022-01-28] MEDS: PRENATAL VITAMINS W/ FOLIC ACID TABLET (FP) PO SCH (10:38)
[2022-01-28] MEDS: COLCHICINE 0.6 MG CAP PO SCH (10:39)
[2022-01-28] MEDS: SERTRALINE HCL 50 MG TABLET (FP) PO SCH (10:39)
[2022-01-28] MEDS: amLODIPine BESYLATE 5 MG TABLET (FP) PO SCH (10:39)
[2022-01-28] MEDS: PANTOPRAZOLE 40 MG TABLET PO SCH (10:39)
[2022-01-28] MEDS: METOPROLOL TARTRATE 50 MG TABLET (FP) PO SCH (10:39)
[2022-01-28] MEDS: ALLOPURINOL 100 MG TABLET (FP) PO SCH (10:40)
[2022-01-28] MEDS: OSELTAMIVIR PHOSPHATE 75 MG CAPSULE PO SCH (10:40)
== END 2022-01-28 12:43 | disposition other institution (70) | DRG 775 ==
LOC: YASAS 12:25 → Y6N 15:02
PROVIDERS: ADMIT Allergy & Immunology; ATTEND Surgery
PROC: HZ2ZZZZ Detoxification Services for Substance Abuse Treatment (ICD-10-PCS; principal; 2022-01-23)
DX: F10.230 Alcohol dependence with withdrawal, uncomplicated (principal); E78.00 Pure hypercholesterolemia, unspecified; E11.9 Type 2 diabetes mellitus without complications; Z79.84 Long term (current) use of oral hypoglycemic drugs; G47.00 Insomnia, unspecified; M1A.09X0 Idiopathic chronic gout, multiple sites, without tophus (tophi); E66.09 Other obesity due to excess calories; Z68.38 Body mass index [BMI] 38.0-38.9, adult; Z88.7 Allergy status to serum and vaccine; Z87.11 Personal history of peptic ulcer disease
CPT/HCPCS: 36415; 80053; 82962; 85027; 86780; 87811; C9803-CS; U0003; U0005

== ENCOUNTER 2022-01-28 13:02 | Inpatient (IN) | payer OTHER ==
[2022-01-28] MEDS ORDERED: MAG HYDROX/AL HYDROX/SIMETH 30 ML UNIT-DOSE CUP PO PRN (14:08)
[2022-01-28] MEDS ORDERED: LOPERAMIDE HCL 2 MG CAPSULE PO PRN (14:08)
[2022-01-28] MEDS ORDERED: guaiFENesin 200 MG/10 ML 10 ML UNIT-DOSE CUPS PO PRN (14:08)
[2022-01-28] MEDS ORDERED: MAGNESIUM CITRATE 300 ML BOTTLE PO PRN (14:08)
[2022-01-28] MEDS ORDERED: BENZOCAINE/MENTHOL (CHLORASEPTIC ) LOZENGE MM PRN (14:08)
[2022-01-28] MEDS ORDERED: P-EPHED 60MG/TRIPROLIDI 2.5MG TABLET PO PRN (14:08)
[2022-01-28] MEDS ORDERED: MAGNESIUM HYDROX 2400MG/30ML ORAL SUSPENSION 30 ML CUP PO PRN (14:08)
[2022-01-28] MEDS: metFORMIN HCL 500 MG TABLET (FP) PO SCH (16:41)
[2022-01-28] MEDS: hydrOXYzine PAMOATE 25 MG CAPSULE (FP) PO SCH ×2 (19:19→21:26)
[2022-01-28] MEDS ORDERED: QUEtiapine FUMARATE 200 MG TABLET ONE (21:23)
[2022-01-28] MEDS ORDERED: QUEtiapine FUMARATE 100 MG TABLET (FP) ONE (21:23)
[2022-01-28] MEDS: ATORVASTATIN CA 40 MG TABLET (FP) PO SCH (21:24)
[2022-01-28] MEDS: THIAMINE HCL 100 MG TABLET (FP) PO SCH (21:25)
[2022-01-28] MEDS: QUETIAPINE FUMARATE 200 MG, QUETIAPINE FUMARATE 100 MG PO SCH (21:25)
[2022-01-28] MEDS: MELATONIN 5 MG TABLETS PO SCH (21:25)
[2022-01-28] MEDS ORDERED: QUEtiapine FUMARATE 300 MG TABLET PO SCH (22:00)
[2022-01-29] MEDS: hydrOXYzine PAMOATE 25 MG CAPSULE (FP) PO SCH ×5 (06:20→21:20)
[2022-01-29] MEDS: IBUPROFEN 400 MG TABLET (FP) PO PRN (06:21)
[2022-01-29] MEDS: metFORMIN HCL 500 MG TABLET (FP) PO SCH ×2 (06:23→17:22)
[2022-01-29] MEDS: COLCHICINE 0.6 MG CAP PO SCH (10:21)
[2022-01-29] MEDS: ALLOPURINOL 100 MG TABLET (FP) PO SCH (10:21)
[2022-01-29] MEDS: SERTRALINE HCL 50 MG TABLET (FP) PO SCH (10:21)
[2022-01-29] MEDS: amLODIPine BESYLATE 5 MG TABLET (FP) PO SCH (10:21)
[2022-01-29] MEDS: PRENATAL VITAMINS W/ FOLIC ACID TABLET (FP) PO SCH (10:21)
[2022-01-29] MEDS: PANTOPRAZOLE 40 MG TABLET PO SCH (10:21)
[2022-01-29] MEDS: ACETAMINOPHEN 325 MG TABLET (FP) PO PRN (10:23)
[2022-01-29] MEDS ORDERED: QUEtiapine FUMARATE 200 MG TABLET ONE (18:26)
[2022-01-29] MEDS ORDERED: QUEtiapine FUMARATE 100 MG TABLET (FP) ONE (18:26)
[2022-01-29] MEDS: QUETIAPINE FUMARATE 200 MG, QUETIAPINE FUMARATE 100 MG PO SCH (21:19)
[2022-01-29] MEDS: MELATONIN 5 MG TABLETS PO SCH (21:19)
[2022-01-29] MEDS: ATORVASTATIN CA 40 MG TABLET (FP) PO SCH (21:19)
[2022-01-29] MEDS: THIAMINE HCL 100 MG TABLET (FP) PO SCH (21:20)
[2022-01-29] MEDS: BENZOCAINE 20 % GEL TUBE MM PRN (21:21)
[2022-01-30] MEDS: metFORMIN HCL 500 MG TABLET (FP) PO SCH ×2 (07:03→16:33)
[2022-01-30] MEDS: IBUPROFEN 400 MG TABLET (FP) PO PRN (07:04)
[2022-01-30] MEDS: hydrOXYzine PAMOATE 25 MG CAPSULE (FP) PO SCH ×5 (07:05→21:38)
[2022-01-30] MEDS: BENZOCAINE 20 % GEL TUBE MM PRN (07:06)
[2022-01-30] MEDS: SERTRALINE HCL 50 MG TABLET (FP) PO SCH (10:22)
[2022-01-30] MEDS: PANTOPRAZOLE 40 MG TABLET PO SCH (10:22)
[2022-01-30] MEDS: PRENATAL VITAMINS W/ FOLIC ACID TABLET (FP) PO SCH (10:22)
[2022-01-30] MEDS: amLODIPine BESYLATE 5 MG TABLET (FP) PO SCH (10:22)
[2022-01-30] MEDS: COLCHICINE 0.6 MG CAP PO SCH (10:22)
[2022-01-30] MEDS: ALLOPURINOL 100 MG TABLET (FP) PO SCH (10:41)
[2022-01-30] MEDS: NICOTINE 10 MG CARTRIDGE (INHALER) IH PRN (10:42)
[2022-01-30] MEDS ORDERED: QUEtiapine FUMARATE 100 MG TABLET (FP) ONE (18:48)
[2022-01-30] MEDS ORDERED: QUEtiapine FUMARATE 200 MG TABLET ONE (18:48)
[2022-01-30] MEDS: QUETIAPINE FUMARATE 200 MG, QUETIAPINE FUMARATE 100 MG PO SCH (21:38)
[2022-01-30] MEDS: ATORVASTATIN CA 40 MG TABLET (FP) PO SCH (21:38)
[2022-01-30] MEDS: THIAMINE HCL 100 MG TABLET (FP) PO SCH (21:39)
[2022-01-30] MEDS: MELATONIN 5 MG TABLETS PO SCH (21:39)
[2022-01-31] MEDS: IBUPROFEN 400 MG TABLET (FP) PO PRN (06:15)
[2022-01-31] MEDS: metFORMIN HCL 500 MG TABLET (FP) PO SCH ×2 (06:15→16:48)
[2022-01-31] MEDS: hydrOXYzine PAMOATE 25 MG CAPSULE (FP) PO SCH ×5 (06:16→21:24)
[2022-01-31] MEDS: PANTOPRAZOLE 40 MG TABLET PO SCH (10:36)
[2022-01-31] MEDS: amLODIPine BESYLATE 5 MG TABLET (FP) PO SCH (10:36)
[2022-01-31] MEDS: COLCHICINE 0.6 MG CAP PO SCH (10:36)
[2022-01-31] MEDS: ALLOPURINOL 100 MG TABLET (FP) PO SCH (10:36)
[2022-01-31] MEDS: PRENATAL VITAMINS W/ FOLIC ACID TABLET (FP) PO SCH (10:36)
[2022-01-31] MEDS: SERTRALINE HCL 50 MG TABLET (FP) PO SCH (10:36)
[2022-01-31 14:12] LABS: SARS-CoV-2 NAA Not Detected (Not Detected)
[2022-01-31] MEDS: NICOTINE 10 MG CARTRIDGE (INHALER) IH PRN (16:47)
[2022-01-31] MEDS: BENZOCAINE 20 % GEL TUBE MM PRN (16:49)
[2022-01-31] MEDS ORDERED: QUEtiapine FUMARATE 200 MG TABLET ONE (18:28)
[2022-01-31] MEDS ORDERED: QUEtiapine FUMARATE 100 MG TABLET (FP) ONE (18:28)
[2022-01-31] MEDS: QUETIAPINE FUMARATE 200 MG, QUETIAPINE FUMARATE 100 MG PO SCH (21:23)
[2022-01-31] MEDS: MELATONIN 5 MG TABLETS PO SCH (21:23)
[2022-01-31] MEDS: THIAMINE HCL 100 MG TABLET (FP) PO SCH (21:23)
[2022-01-31] MEDS: ATORVASTATIN CA 40 MG TABLET (FP) PO SCH (21:24)
[2022-02-01] MEDS: IBUPROFEN 400 MG TABLET (FP) PO PRN (02:18)
[2022-02-01] MEDS: ACETAMINOPHEN 325 MG TABLET (FP) PO PRN (06:17)
[2022-02-01] MEDS: metFORMIN HCL 500 MG TABLET (FP) PO SCH ×2 (06:18→16:35)
[2022-02-01] MEDS: hydrOXYzine PAMOATE 25 MG CAPSULE (FP) PO SCH ×5 (06:18→21:30)
[2022-02-01] MEDS: amLODIPine BESYLATE 5 MG TABLET (FP) PO SCH (10:18)
[2022-02-01] MEDS: PRENATAL VITAMINS W/ FOLIC ACID TABLET (FP) PO SCH (10:18)
[2022-02-01] MEDS: ALLOPURINOL 100 MG TABLET (FP) PO SCH (10:18)
[2022-02-01] MEDS: COLCHICINE 0.6 MG CAP PO SCH (10:19)
[2022-02-01] MEDS: PANTOPRAZOLE 40 MG TABLET PO SCH (10:19)
[2022-02-01] MEDS: SERTRALINE HCL 50 MG TABLET (FP) PO SCH (10:19)
[2022-02-01] MEDS ORDERED: QUEtiapine FUMARATE 200 MG TABLET ONE (18:34)
[2022-02-01] MEDS ORDERED: QUEtiapine FUMARATE 100 MG TABLET (FP) ONE (18:34)
[2022-02-01] MEDS: QUETIAPINE FUMARATE 200 MG, QUETIAPINE FUMARATE 100 MG PO SCH (21:29)
[2022-02-01] MEDS: MELATONIN 5 MG TABLETS PO SCH (21:29)
[2022-02-01] MEDS: THIAMINE HCL 100 MG TABLET (FP) PO SCH (21:29)
[2022-02-01] MEDS: ATORVASTATIN CA 40 MG TABLET (FP) PO SCH (21:30)
[2022-02-02] MEDS: hydrOXYzine PAMOATE 25 MG CAPSULE (FP) PO SCH ×5 (06:21→21:33)
[2022-02-02] MEDS: metFORMIN HCL 500 MG TABLET (FP) PO SCH ×2 (06:21→16:44)
[2022-02-02] MEDS: amLODIPine BESYLATE 5 MG TABLET (FP) PO SCH (10:06)
[2022-02-02] MEDS: PRENATAL VITAMINS W/ FOLIC ACID TABLET (FP) PO SCH (10:06)
[2022-02-02] MEDS: PANTOPRAZOLE 40 MG TABLET PO SCH (10:06)
[2022-02-02] MEDS: COLCHICINE 0.6 MG CAP PO SCH (10:06)
[2022-02-02] MEDS: SERTRALINE HCL 50 MG TABLET (FP) PO SCH (10:06)
[2022-02-02] MEDS: ALLOPURINOL 100 MG TABLET (FP) PO SCH (10:06)
[2022-02-02] MEDS ORDERED: QUEtiapine FUMARATE 100 MG TABLET (FP) ONE (18:33)
[2022-02-02] MEDS ORDERED: QUEtiapine FUMARATE 200 MG TABLET ONE (18:33)
[2022-02-02] MEDS: QUETIAPINE FUMARATE 200 MG, QUETIAPINE FUMARATE 100 MG PO SCH (21:33)
[2022-02-02] MEDS: MELATONIN 5 MG TABLETS PO SCH (21:33)
[2022-02-02] MEDS: THIAMINE HCL 100 MG TABLET (FP) PO SCH (21:33)
[2022-02-02] MEDS: ATORVASTATIN CA 40 MG TABLET (FP) PO SCH (21:33)
[2022-02-03] MEDS: hydrOXYzine PAMOATE 25 MG CAPSULE (FP) PO SCH ×5 (06:18→21:26)
[2022-02-03] MEDS: metFORMIN HCL 500 MG TABLET (FP) PO SCH ×2 (06:18→16:37)
[2022-02-03] MEDS: PANTOPRAZOLE 40 MG TABLET PO SCH (10:50)
[2022-02-03] MEDS: SERTRALINE HCL 50 MG TABLET (FP) PO SCH (10:50)
[2022-02-03] MEDS: amLODIPine BESYLATE 5 MG TABLET (FP) PO SCH (10:50)
[2022-02-03] MEDS: PRENATAL VITAMINS W/ FOLIC ACID TABLET (FP) PO SCH (10:50)
[2022-02-03] MEDS: COLCHICINE 0.6 MG CAP PO SCH (10:50)
[2022-02-03] MEDS: ALLOPURINOL 100 MG TABLET (FP) PO SCH (10:51)
[2022-02-03] MEDS ORDERED: QUEtiapine FUMARATE 200 MG TABLET ONE (18:43)
[2022-02-03] MEDS ORDERED: QUEtiapine FUMARATE 100 MG TABLET (FP) ONE (18:43)
[2022-02-03] MEDS: QUETIAPINE FUMARATE 200 MG, QUETIAPINE FUMARATE 100 MG PO SCH (21:26)
[2022-02-03] MEDS: MELATONIN 5 MG TABLETS PO SCH (21:27)
[2022-02-03] MEDS: METOPROLOL TARTRATE 25 MG TABLET (FP) PO SCH (21:27)
[2022-02-03] MEDS: THIAMINE HCL 100 MG TABLET (FP) PO SCH (21:27)
[2022-02-03] MEDS: ATORVASTATIN CA 40 MG TABLET (FP) PO SCH (21:27)
[2022-02-03] MEDS ORDERED: PATIENT'S OWN MEDICATION (NON-FORMULARY) (Metoprolol Tartrate [Metoprolol Tartrate] 100 MG PO SCH (22:00)
[2022-02-04] MEDS: metFORMIN HCL 500 MG TABLET (FP) PO SCH ×2 (06:11→16:25)
[2022-02-04] MEDS: hydrOXYzine PAMOATE 25 MG CAPSULE (FP) PO SCH ×5 (06:11→21:17)
[2022-02-04] MEDS: PRENATAL VITAMINS W/ FOLIC ACID TABLET (FP) PO SCH (10:14)
[2022-02-04] MEDS: NALTREXONE HCL 50 MG TABLET PO SCH (10:14)
[2022-02-04] MEDS: ALLOPURINOL 100 MG TABLET (FP) PO SCH (10:14)
[2022-02-04] MEDS: SERTRALINE HCL 50 MG TABLET (FP) PO SCH (10:14)
[2022-02-04] MEDS: COLCHICINE 0.6 MG CAP PO SCH (10:14)
[2022-02-04] MEDS: PANTOPRAZOLE 40 MG TABLET PO SCH (10:14)
[2022-02-04] MEDS: amLODIPine BESYLATE 5 MG TABLET (FP) PO SCH (10:15)
[2022-02-04] MEDS: METOPROLOL TARTRATE 25 MG TABLET (FP) PO SCH ×2 (11:33→21:17)
[2022-02-04] MEDS ORDERED: QUEtiapine FUMARATE 200 MG TABLET ONE (18:26)
[2022-02-04] MEDS ORDERED: QUEtiapine FUMARATE 100 MG TABLET (FP) ONE (18:26)
[2022-02-04] MEDS: ATORVASTATIN CA 40 MG TABLET (FP) PO SCH (21:17)
[2022-02-04] MEDS: QUETIAPINE FUMARATE 200 MG, QUETIAPINE FUMARATE 100 MG PO SCH (21:17)
[2022-02-04] MEDS: MELATONIN 5 MG TABLETS PO SCH (21:17)
[2022-02-04] MEDS: THIAMINE HCL 100 MG TABLET (FP) PO SCH (21:17)
[2022-02-05] MEDS: hydrOXYzine PAMOATE 25 MG CAPSULE (FP) PO SCH ×5 (07:13→21:24)
[2022-02-05] MEDS: metFORMIN HCL 500 MG TABLET (FP) PO SCH ×2 (07:13→16:58)
[2022-02-05] MEDS: SERTRALINE HCL 50 MG TABLET (FP) PO SCH (10:17)
[2022-02-05] MEDS: amLODIPine BESYLATE 5 MG TABLET (FP) PO SCH (10:17)
[2022-02-05] MEDS: PRENATAL VITAMINS W/ FOLIC ACID TABLET (FP) PO SCH (10:17)
[2022-02-05] MEDS: NALTREXONE HCL 50 MG TABLET PO SCH (10:17)
[2022-02-05] MEDS: METOPROLOL TARTRATE 25 MG TABLET (FP) PO SCH ×2 (10:17→21:24)
[2022-02-05] MEDS: PANTOPRAZOLE 40 MG TABLET PO SCH (10:17)
[2022-02-05] MEDS: COLCHICINE 0.6 MG CAP PO SCH (10:18)
[2022-02-05] MEDS: ALLOPURINOL 100 MG TABLET (FP) PO SCH (10:18)
[2022-02-05] MEDS ORDERED: QUEtiapine FUMARATE 100 MG TABLET (FP) ONE (20:26)
[2022-02-05] MEDS ORDERED: QUEtiapine FUMARATE 200 MG TABLET ONE (20:26)
[2022-02-05] MEDS: ATORVASTATIN CA 40 MG TABLET (FP) PO SCH (21:23)
[2022-02-05] MEDS: QUETIAPINE FUMARATE 200 MG, QUETIAPINE FUMARATE 100 MG PO SCH (21:23)
[2022-02-05] MEDS: THIAMINE HCL 100 MG TABLET (FP) PO SCH (21:24)
[2022-02-05] MEDS: MELATONIN 5 MG TABLETS PO SCH (21:25)
[2022-02-06] MEDS: metFORMIN HCL 500 MG TABLET (FP) PO SCH ×2 (06:16→17:04)
[2022-02-06] MEDS: hydrOXYzine PAMOATE 25 MG CAPSULE (FP) PO SCH ×5 (06:16→21:34)
[2022-02-06] MEDS: BENZOCAINE 20 % GEL TUBE MM PRN (06:19)
[2022-02-06] MEDS: PRENATAL VITAMINS W/ FOLIC ACID TABLET (FP) PO SCH (10:14)
[2022-02-06] MEDS: NALTREXONE HCL 50 MG TABLET PO SCH (10:14)
[2022-02-06] MEDS: PANTOPRAZOLE 40 MG TABLET PO SCH (10:15)
[2022-02-06] MEDS: amLODIPine BESYLATE 5 MG TABLET (FP) PO SCH (10:15)
[2022-02-06] MEDS: ALLOPURINOL 100 MG TABLET (FP) PO SCH (10:15)
[2022-02-06] MEDS: COLCHICINE 0.6 MG CAP PO SCH (10:15)
[2022-02-06] MEDS: METOPROLOL TARTRATE 25 MG TABLET (FP) PO SCH ×2 (10:16→21:34)
[2022-02-06] MEDS: SERTRALINE HCL 50 MG TABLET (FP) PO SCH (10:16)
[2022-02-06] MEDS ORDERED: QUEtiapine FUMARATE 200 MG TABLET ONE (18:31)
[2022-02-06] MEDS ORDERED: QUEtiapine FUMARATE 100 MG TABLET (FP) ONE (18:32)
[2022-02-06] MEDS: ATORVASTATIN CA 40 MG TABLET (FP) PO SCH (21:34)
[2022-02-06] MEDS: THIAMINE HCL 100 MG TABLET (FP) PO SCH (21:34)
[2022-02-06] MEDS: QUETIAPINE FUMARATE 200 MG, QUETIAPINE FUMARATE 100 MG PO SCH (21:34)
[2022-02-06] MEDS: MELATONIN 5 MG TABLETS PO SCH (21:35)
[2022-02-06] MEDS: IBUPROFEN 400 MG TABLET (FP) PO PRN (21:36)
[2022-02-07] MEDS: metFORMIN HCL 500 MG TABLET (FP) PO SCH ×2 (06:23→16:50)
[2022-02-07] MEDS: hydrOXYzine PAMOATE 25 MG CAPSULE (FP) PO SCH ×5 (06:23→21:08)
[2022-02-07] MEDS ORDERED: NALTREXONE MICROSPHERES (VIVITROL) 380 MG DISP.SYRIN IM ONE (10:00)
[2022-02-07] MEDS: amLODIPine BESYLATE 5 MG TABLET (FP) PO SCH (10:12)
[2022-02-07] MEDS: COLCHICINE 0.6 MG CAP PO SCH (10:12)
[2022-02-07] MEDS: PRENATAL VITAMINS W/ FOLIC ACID TABLET (FP) PO SCH (10:13)
[2022-02-07] MEDS: PANTOPRAZOLE 40 MG TABLET PO SCH (10:13)
[2022-02-07] MEDS: SERTRALINE HCL 50 MG TABLET (FP) PO SCH (10:13)
[2022-02-07] MEDS: ALLOPURINOL 100 MG TABLET (FP) PO SCH (10:13)
[2022-02-07] MEDS: METOPROLOL TARTRATE 25 MG TABLET (FP) PO SCH ×2 (10:13→21:07)
[2022-02-07] MEDS ORDERED: QUEtiapine FUMARATE 200 MG TABLET ONE (18:17)
[2022-02-07] MEDS ORDERED: QUEtiapine FUMARATE 100 MG TABLET (FP) ONE (18:17)
[2022-02-07] MEDS: ATORVASTATIN CA 40 MG TABLET (FP) PO SCH (21:07)
[2022-02-07] MEDS: THIAMINE HCL 100 MG TABLET (FP) PO SCH (21:07)
[2022-02-07] MEDS: QUETIAPINE FUMARATE 200 MG, QUETIAPINE FUMARATE 100 MG PO SCH (21:07)
[2022-02-07] MEDS: MELATONIN 5 MG TABLETS PO SCH (21:07)
[2022-02-08] MEDS: metFORMIN HCL 500 MG TABLET (FP) PO SCH ×2 (06:05→16:33)
[2022-02-08] MEDS: hydrOXYzine PAMOATE 25 MG CAPSULE (FP) PO SCH ×5 (06:05→21:13)
[2022-02-08] MEDS: PRENATAL VITAMINS W/ FOLIC ACID TABLET (FP) PO SCH (10:10)
[2022-02-08] MEDS: SERTRALINE HCL 50 MG TABLET (FP) PO SCH (10:10)
[2022-02-08] MEDS: amLODIPine BESYLATE 5 MG TABLET (FP) PO SCH (10:10)
[2022-02-08] MEDS: PANTOPRAZOLE 40 MG TABLET PO SCH (10:11)
[2022-02-08] MEDS: METOPROLOL TARTRATE 25 MG TABLET (FP) PO SCH ×2 (10:11→21:13)
[2022-02-08] MEDS: ALLOPURINOL 100 MG TABLET (FP) PO SCH (10:11)
[2022-02-08] MEDS: COLCHICINE 0.6 MG CAP PO SCH (10:11)
[2022-02-08] MEDS ORDERED: QUEtiapine FUMARATE 100 MG TABLET (FP) ONE (18:42)
[2022-02-08] MEDS ORDERED: QUEtiapine FUMARATE 200 MG TABLET ONE (18:42)
[2022-02-08] MEDS: MELATONIN 5 MG TABLETS PO SCH (21:13)
[2022-02-08] MEDS: QUETIAPINE FUMARATE 200 MG, QUETIAPINE FUMARATE 100 MG PO SCH (21:13)
[2022-02-08] MEDS: THIAMINE HCL 100 MG TABLET (FP) PO SCH (21:13)
[2022-02-08] MEDS: ATORVASTATIN CA 40 MG TABLET (FP) PO SCH (21:13)
[2022-02-09] MEDS: metFORMIN HCL 500 MG TABLET (FP) PO SCH ×2 (06:09→16:21)
[2022-02-09] MEDS: hydrOXYzine PAMOATE 25 MG CAPSULE (FP) PO SCH ×5 (06:09→21:25)
[2022-02-09] MEDS: PANTOPRAZOLE 40 MG TABLET PO SCH (10:30)
[2022-02-09] MEDS: amLODIPine BESYLATE 5 MG TABLET (FP) PO SCH (10:30)
[2022-02-09] MEDS: METOPROLOL TARTRATE 25 MG TABLET (FP) PO SCH ×2 (10:30→21:25)
[2022-02-09] MEDS: SERTRALINE HCL 50 MG TABLET (FP) PO SCH (10:30)
[2022-02-09] MEDS: COLCHICINE 0.6 MG CAP PO SCH (10:30)
[2022-02-09] MEDS: ALLOPURINOL 100 MG TABLET (FP) PO SCH (10:30)
[2022-02-09] MEDS: PRENATAL VITAMINS W/ FOLIC ACID TABLET (FP) PO SCH (10:30)
[2022-02-09] MEDS ORDERED: QUEtiapine FUMARATE 200 MG TABLET ONE (18:37)
[2022-02-09] MEDS ORDERED: QUEtiapine FUMARATE 100 MG TABLET (FP) ONE (18:37)
[2022-02-09] MEDS: QUETIAPINE FUMARATE 200 MG, QUETIAPINE FUMARATE 100 MG PO SCH (21:25)
[2022-02-09] MEDS: THIAMINE HCL 100 MG TABLET (FP) PO SCH (21:25)
[2022-02-09] MEDS: MELATONIN 5 MG TABLETS PO SCH (21:25)
[2022-02-09] MEDS: ATORVASTATIN CA 40 MG TABLET (FP) PO SCH (21:26)
[2022-02-09] MEDS: IBUPROFEN 400 MG TABLET (FP) PO PRN (21:27)
[2022-02-10] MEDS: hydrOXYzine PAMOATE 25 MG CAPSULE (FP) PO SCH ×2 (06:35→10:13)
[2022-02-10] MEDS: metFORMIN HCL 500 MG TABLET (FP) PO SCH (06:35)
[2022-02-10 07:20] VITALS: BP 111/68; PULSE 83; TEMP 98.3
[2022-02-10] MEDS: PRENATAL VITAMINS W/ FOLIC ACID TABLET (FP) PO SCH (10:12)
[2022-02-10] MEDS: SERTRALINE HCL 50 MG TABLET (FP) PO SCH (10:12)
[2022-02-10] MEDS: ALLOPURINOL 100 MG TABLET (FP) PO SCH (10:12)
[2022-02-10] MEDS: amLODIPine BESYLATE 5 MG TABLET (FP) PO SCH (10:13)
[2022-02-10] MEDS: PANTOPRAZOLE 40 MG TABLET PO SCH (10:13)
[2022-02-10] MEDS: METOPROLOL TARTRATE 25 MG TABLET (FP) PO SCH (10:13)
[2022-02-10] MEDS: COLCHICINE 0.6 MG CAP PO SCH (10:14)
== END 2022-02-10 11:16 | disposition home or self-care (01) | DRG 772 ==
LOC: YASAS 13:02 → Y3W 13:03
PROVIDERS: ADMIT Psychiatry & Neurology Pain Medicine; ATTEND Psychiatry & Neurology Pain Medicine
PROC: HZ42ZZZ Group Counseling for Substance Abuse Treatment, Cognitive-Behavioral (ICD-10-PCS; principal; 2022-01-28)
DX: F10.20 Alcohol dependence, uncomplicated (principal); F17.210 Nicotine dependence, cigarettes, uncomplicated; I10 Essential (primary) hypertension; E78.5 Hyperlipidemia, unspecified; E11.9 Type 2 diabetes mellitus without complications; Z79.84 Long term (current) use of oral hypoglycemic drugs; G47.30 Sleep apnea, unspecified; M10.9 Gout, unspecified; M19.90 Unspecified osteoarthritis, unspecified site; Z88.7 Allergy status to serum and vaccine
CPT/HCPCS: 82962; C9803-CS; J2315; U0003; U0005

== ENCOUNTER 2022-03-06 17:00 | Inpatient (IN) | payer OTHER ==
[2022-03-06 18:10] VITALS: BMI 38.7
[2022-03-06] MEDS ORDERED: P-EPHED 60MG/TRIPROLIDI 2.5MG TABLET PO PRN (19:13)
[2022-03-06] MEDS ORDERED: IBUPROFEN 400 MG TABLET (FP) PO PRN (19:13)
[2022-03-06] MEDS ORDERED: ACETAMINOPHEN 325 MG TABLET (FP) PO PRN ×2 (19:13)
[2022-03-06] MEDS ORDERED: guaiFENesin 200 MG/10 ML 10 ML UNIT-DOSE CUPS PO PRN (19:13)
[2022-03-06] MEDS ORDERED: METHOCARBAMOL 500 MG TABLET PO PRN (19:13)
[2022-03-06] MEDS ORDERED: NICOTINE POLACRILEX 2 MG GUM BUC PRN (19:13)
[2022-03-06] MEDS ORDERED: BISMUTH SUBSALICYLATE 524 MG/30 ML PO PRN (19:13)
[2022-03-06] MEDS ORDERED: LOPERAMIDE HCL 2 MG CAPSULE PO PRN (19:13)
[2022-03-06] MEDS ORDERED: MAG HYDROX/AL HYDROX/SIMETH 30 ML UNIT-DOSE CUP PO PRN (19:13)
[2022-03-06] MEDS ORDERED: ONDANSETRON *ODT* 4 MG TABLET SL PRN (19:13)
[2022-03-06] MEDS ORDERED: DICYCLOMINE HCL 10 MG CAPSULE PO PRN (19:13)
[2022-03-06] MEDS ORDERED: NICOTINE 10 MG CARTRIDGE (INHALER) IH PRN (19:13)
[2022-03-06] MEDS ORDERED: BENZOCAINE/MENTHOL (CHLORASEPTIC ) LOZENGE MM PRN (19:13)
[2022-03-06] MEDS ORDERED: MAGNESIUM HYDROX 2400MG/30ML ORAL SUSPENSION 30 ML CUP PO PRN (19:13)
[2022-03-06] MEDS ORDERED: MAGNESIUM CITRATE 300 ML BOTTLE PO PRN (19:13)
[2022-03-06] MEDS: IBUPROFEN 600 MG TABLET (FP) PO PRN (20:50)
[2022-03-06] MEDS: PANTOPRAZOLE 40 MG TABLET PO SCH (20:52)
[2022-03-06] MEDS ORDERED: MELATONIN 5 MG TABLETS PO SCH (22:00)
[2022-03-06] MEDS: METOPROLOL TARTRATE 50 MG TABLET (FP) PO SCH (22:46)
[2022-03-06] MEDS: ALLOPURINOL 100 MG TABLET (FP) PO SCH (22:47)
[2022-03-06] MEDS: THIAMINE HCL 100 MG TABLET (FP) PO SCH (22:47)
[2022-03-06] MEDS: ATORVASTATIN CA 80 MG TABLET (FP) PO SCH (22:47)
[2022-03-07] MEDS: metFORMIN HCL 500 MG TABLET (FP) PO SCH ×2 (07:14→17:15)
[2022-03-07] MEDS: IBUPROFEN 600 MG TABLET (FP) PO PRN (09:36)
[2022-03-07] MEDS ORDERED: chlordiazePOXIDE HCL 25 MG CAPSULE PO PRN (09:56)
[2022-03-07] MEDS: ALLOPURINOL 100 MG TABLET (FP) PO SCH (10:20)
[2022-03-07] MEDS: METOPROLOL TARTRATE 50 MG TABLET (FP) PO SCH ×2 (10:20→22:46)
[2022-03-07] MEDS: PRENATAL VITAMINS W/ FOLIC ACID TABLET (FP) PO SCH (10:20)
[2022-03-07] MEDS: COLCHICINE 0.6 MG CAP PO SCH (10:20)
[2022-03-07] MEDS: PANTOPRAZOLE 40 MG TABLET PO SCH (10:21)
[2022-03-07] MEDS: amLODIPine BESYLATE 5 MG TABLET (FP) PO SCH (10:22)
[2022-03-07] MEDS: chlordiazePOXIDE HCL 25 MG CAPSULE PO SCH ×3 (10:22→22:46)
[2022-03-07 10:52] LABS: HEMATOCRIT 39.3 % (35.4-49); HEMOGLOBIN 13.2 GM/dL (11.7-16.9); MCH 30.2 pg (25.7-33.7); MCHC 33.5 g/dl (32.0-35.9); MEAN CELL VOLUME 90.3 fl (80-96); MEAN PLT VOLUME 10.8 fl (7.5-11.1); PLATELET COUNT 128 10^3/uL (134-434); RBC 4.35 M/mm3 (4.00-5.60); RDW 15.1 % (11.9-15.9); WHITE BLOOD COUNT 3.5 K/mm3 (4.0-10.0)
[2022-03-07 11:01] LABS: ALBUMIN 3.2 g/dl (3.4-5.0); BLOOD UREA NITROGEN 19.9 mg/dL (7-18); CALCIUM 8.5 mg/dL (8.5-10.1)
[2022-03-07 11:04] LABS: CREATININE 0.9 mg/dL (0.55-1.3)
[2022-03-07 11:05] LABS: BILIRUBIN,TOTAL 0.6 mg/dL (0.2-1); TOT PROT 6.6 g/dl (6.4-8.2)
[2022-03-07] MEDS: SERTRALINE HCL 50 MG TABLET (FP) PO SCH (12:25)
[2022-03-07] MEDS: QUEtiapine FUMARATE 400 MG TABLET PO SCH (22:46)
[2022-03-07] MEDS: ATORVASTATIN CA 80 MG TABLET (FP) PO SCH (22:46)
[2022-03-07] MEDS: THIAMINE HCL 100 MG TABLET (FP) PO SCH (22:46)
[2022-03-08] MEDS: chlordiazePOXIDE HCL 25 MG CAPSULE PO SCH ×4 (06:26→22:39)
[2022-03-08] MEDS: metFORMIN HCL 500 MG TABLET (FP) PO SCH ×2 (06:29→17:33)
[2022-03-08] MEDS: ALLOPURINOL 100 MG TABLET (FP) PO SCH (10:45)
[2022-03-08] MEDS: COLCHICINE 0.6 MG CAP PO SCH (10:45)
[2022-03-08] MEDS: SERTRALINE HCL 50 MG TABLET (FP) PO SCH (10:45)
[2022-03-08] MEDS: METOPROLOL TARTRATE 50 MG TABLET (FP) PO SCH ×2 (10:45→22:40)
[2022-03-08] MEDS: PANTOPRAZOLE 40 MG TABLET PO SCH (10:45)
[2022-03-08] MEDS: amLODIPine BESYLATE 5 MG TABLET (FP) PO SCH (10:45)
[2022-03-08] MEDS: PRENATAL VITAMINS W/ FOLIC ACID TABLET (FP) PO SCH (10:45)
[2022-03-08] MEDS: ATORVASTATIN CA 80 MG TABLET (FP) PO SCH (22:38)
[2022-03-08] MEDS: QUEtiapine FUMARATE 400 MG TABLET PO SCH (22:40)
[2022-03-08] MEDS: THIAMINE HCL 100 MG TABLET (FP) PO SCH (22:40)
[2022-03-09] MEDS: metFORMIN HCL 500 MG TABLET (FP) PO SCH ×2 (06:05→17:42)
[2022-03-09] MEDS: chlordiazePOXIDE HCL 25 MG CAPSULE PO SCH ×4 (06:05→22:46)
[2022-03-09] MEDS: ALLOPURINOL 100 MG TABLET (FP) PO SCH (10:53)
[2022-03-09] MEDS: PANTOPRAZOLE 40 MG TABLET PO SCH (10:53)
[2022-03-09] MEDS: SERTRALINE HCL 50 MG TABLET (FP) PO SCH (10:53)
[2022-03-09] MEDS: PRENATAL VITAMINS W/ FOLIC ACID TABLET (FP) PO SCH (10:53)
[2022-03-09] MEDS: amLODIPine BESYLATE 5 MG TABLET (FP) PO SCH (10:53)
[2022-03-09] MEDS: COLCHICINE 0.6 MG CAP PO SCH (10:53)
[2022-03-09] MEDS: METOPROLOL TARTRATE 50 MG TABLET (FP) PO SCH ×2 (10:53→22:46)
[2022-03-09] MEDS: IBUPROFEN 600 MG TABLET (FP) PO PRN (10:56)
[2022-03-09] MEDS: QUEtiapine FUMARATE 400 MG TABLET PO SCH (22:46)
[2022-03-09] MEDS: THIAMINE HCL 100 MG TABLET (FP) PO SCH (22:46)
[2022-03-09] MEDS: ATORVASTATIN CA 80 MG TABLET (FP) PO SCH (22:46)
[2022-03-10] MEDS ORDERED: chlordiazePOXIDE HCL 10 MG CAPSULE PO PRN
[2022-03-10] MEDS: chlordiazePOXIDE HCL 10 MG CAPSULE PO SCH ×4 (05:36→22:45)
[2022-03-10] MEDS: metFORMIN HCL 500 MG TABLET (FP) PO SCH ×2 (07:29→17:19)
[2022-03-10] MEDS: PRENATAL VITAMINS W/ FOLIC ACID TABLET (FP) PO SCH (10:48)
[2022-03-10] MEDS: SERTRALINE HCL 50 MG TABLET (FP) PO SCH (10:48)
[2022-03-10] MEDS: COLCHICINE 0.6 MG CAP PO SCH (10:49)
[2022-03-10] MEDS: PANTOPRAZOLE 40 MG TABLET PO SCH (10:49)
[2022-03-10] MEDS: ALLOPURINOL 100 MG TABLET (FP) PO SCH (10:50)
[2022-03-10] MEDS: amLODIPine BESYLATE 5 MG TABLET (FP) PO SCH (13:25)
[2022-03-10] MEDS: METOPROLOL TARTRATE 50 MG TABLET (FP) PO SCH ×2 (13:26→22:44)
[2022-03-10] MEDS: QUEtiapine FUMARATE 400 MG TABLET PO SCH (22:44)
[2022-03-10] MEDS: ATORVASTATIN CA 80 MG TABLET (FP) PO SCH (22:44)
[2022-03-10] MEDS: THIAMINE HCL 100 MG TABLET (FP) PO SCH (22:44)
[2022-03-11] MEDS ORDERED: chlordiazePOXIDE HCL 10 MG CAPSULE PO SCH (05:00)
[2022-03-11] MEDS: metFORMIN HCL 500 MG TABLET (FP) PO SCH (06:54)
[2022-03-11 09:20] VITALS: BP 141/84; PULSE 97; TEMP 97.6
[2022-03-11] MEDS: SERTRALINE HCL 50 MG TABLET (FP) PO SCH (10:26)
[2022-03-11] MEDS: PRENATAL VITAMINS W/ FOLIC ACID TABLET (FP) PO SCH (10:26)
[2022-03-11] MEDS: METOPROLOL TARTRATE 50 MG TABLET (FP) PO SCH (10:26)
[2022-03-11] MEDS: amLODIPine BESYLATE 5 MG TABLET (FP) PO SCH (10:26)
[2022-03-11] MEDS: ALLOPURINOL 100 MG TABLET (FP) PO SCH (10:27)
[2022-03-11] MEDS: COLCHICINE 0.6 MG CAP PO SCH (10:27)
[2022-03-11] MEDS: PANTOPRAZOLE 40 MG TABLET PO SCH (10:27)
[2022-03-12] MEDS ORDERED: chlordiazePOXIDE HCL 10 MG CAPSULE PO ONE (05:00)
== END 2022-03-11 11:55 | disposition home or self-care (01) | DRG 775 ==
LOC: YASAS 17:00 → Y6N 19:38
PROVIDERS: ADMIT Allergy & Immunology; ATTEND Surgery
PROC: HZ2ZZZZ Detoxification Services for Substance Abuse Treatment (ICD-10-PCS; principal; 2022-03-06)
DX: F10.230 Alcohol dependence with withdrawal, uncomplicated (principal); F17.210 Nicotine dependence, cigarettes, uncomplicated; I10 Essential (primary) hypertension; K21.9 Gastro-esophageal reflux disease without esophagitis; M1A.09X0 Idiopathic chronic gout, multiple sites, without tophus (tophi); M19.90 Unspecified osteoarthritis, unspecified site; E78.5 Hyperlipidemia, unspecified; E11.9 Type 2 diabetes mellitus without complications; G47.30 Sleep apnea, unspecified; E66.01 Morbid (severe) obesity due to excess calories; Z68.38 Body mass index [BMI] 38.0-38.9, adult; Z88.8 Allergy status to other drugs, medicaments and biological substances; Z79.84 Long term (current) use of oral hypoglycemic drugs; Z87.11 Personal history of peptic ulcer disease; Z87.438 Personal history of other diseases of male genital organs; Z56.0 Unemployment, unspecified
CPT/HCPCS: 36415; 80053; 82962; 85027; 86780; C9803-CS; U0003; U0005

== ENCOUNTER 2022-05-05 15:43 | Inpatient (IN) | payer OTHER ==
[2022-05-05 17:09] VITALS: BMI 38.7
[2022-05-05] MEDS ORDERED: ACETAMINOPHEN 325 MG TABLET (FP) PO PRN ×2 (19:42)
[2022-05-05] MEDS ORDERED: IBUPROFEN 600 MG TABLET (FP) PO PRN (19:42)
[2022-05-05] MEDS ORDERED: NICOTINE POLACRILEX 2 MG GUM BUC PRN (19:42)
[2022-05-05] MEDS ORDERED: MAGNESIUM HYDROX 2400MG/30ML ORAL SUSPENSION 30 ML CUP PO PRN (19:42)
[2022-05-05] MEDS ORDERED: MAG HYDROX/AL HYDROX/SIMETH 30 ML UNIT-DOSE CUP PO PRN (19:42)
[2022-05-05] MEDS ORDERED: BISMUTH SUBSALICYLATE 524 MG/30 ML PO PRN (19:42)
[2022-05-05] MEDS ORDERED: MAGNESIUM CITRATE 300 ML BOTTLE PO PRN (19:42)
[2022-05-05] MEDS ORDERED: LOPERAMIDE HCL 2 MG CAPSULE PO PRN (19:42)
[2022-05-05] MEDS ORDERED: DICYCLOMINE HCL 10 MG CAPSULE PO PRN (19:42)
[2022-05-05] MEDS ORDERED: METHOCARBAMOL 500 MG TABLET PO PRN (19:42)
[2022-05-05] MEDS ORDERED: P-EPHED 60MG/TRIPROLIDI 2.5MG TABLET PO PRN (19:42)
[2022-05-05] MEDS ORDERED: MELATONIN 5 MG TABLETS PO PRN (19:42)
[2022-05-05] MEDS ORDERED: chlordiazePOXIDE HCL 25 MG CAPSULE PO PRN (19:45)
[2022-05-05] MEDS ORDERED: METOPROLOL TARTRATE 25 MG TABLET (FP) PO ONE (20:00)
[2022-05-05] MEDS ORDERED: IBUPROFEN 400 MG TABLET (FP) PO ONE (20:56)
[2022-05-05] MEDS: IBUPROFEN 400 MG TABLET (FP) PO PRN (20:59)
[2022-05-05] MEDS: ASPIRIN COATED 81 MG TABLET.EC PO SCH (22:42)
[2022-05-05] MEDS: ATORVASTATIN CA 80 MG TABLET (FP) PO SCH (22:43)
[2022-05-05] MEDS ORDERED: METOPROLOL TARTRATE 25 MG TABLET (FP) ONE (22:47)
[2022-05-05] MEDS: METOPROLOL TARTRATE 50 MG TABLET (FP) PO SCH (22:47)
[2022-05-05] MEDS: THIAMINE HCL 100 MG TABLET (FP) PO SCH (22:48)
[2022-05-05] MEDS: chlordiazePOXIDE HCL 25 MG CAPSULE PO SCH (22:56)
[2022-05-06] MEDS: chlordiazePOXIDE HCL 25 MG CAPSULE PO SCH ×4 (05:24→22:25)
[2022-05-06] MEDS: guaiFENesin 200 MG/10 ML 10 ML UNIT-DOSE CUPS PO PRN ×2 (05:28→14:35)
[2022-05-06] MEDS: metFORMIN HCL 500 MG TABLET (FP) PO SCH ×2 (06:12→18:27)
[2022-05-06] MEDS ORDERED: PATIENT'S OWN MEDICATION (NON-FORMULARY) (Sertraline Hcl [Zoloft] 100 MG Tablet) PO SCH (10:00)
[2022-05-06] MEDS: ASPIRIN COATED 81 MG TABLET.EC PO SCH (10:22)
[2022-05-06] MEDS: PANTOPRAZOLE 40 MG TABLET PO SCH (10:22)
[2022-05-06] MEDS: METOPROLOL TARTRATE 50 MG TABLET (FP) PO SCH ×2 (10:22→22:24)
[2022-05-06] MEDS: PRENATAL VITAMINS W/ FOLIC ACID TABLET (FP) PO SCH (10:22)
[2022-05-06] MEDS: amLODIPine BESYLATE 5 MG TABLET (FP) PO SCH (10:22)
[2022-05-06] MEDS: IBUPROFEN 400 MG TABLET (FP) PO PRN ×2 (10:27→22:29)
[2022-05-06] MEDS: COLCHICINE 0.6 MG CAP PO SCH (12:29)
[2022-05-06] MEDS: ALLOPURINOL 100 MG TABLET (FP) PO SCH (12:29)
[2022-05-06] MEDS: SERTRALINE HCL 50 MG TABLET (FP) PO SCH (12:31)
[2022-05-06 14:22] LABS: BLOOD UREA NITROGEN 12.1 mg/dL (7-18); CALCIUM 8.8 mg/dL (8.5-10.1)
[2022-05-06 14:25] LABS: CREATININE 1.1 mg/dL (0.55-1.3)
[2022-05-06 14:26] LABS: HEMATOCRIT 36.2 % (35.4-49); HEMOGLOBIN 12.2 GM/dL (11.7-16.9); MCH 30.8 pg (25.7-33.7); MCHC 33.8 g/dl (32.0-35.9); MEAN CELL VOLUME 91.2 fl (80-96); MEAN PLT VOLUME 10.1 fl (7.5-11.1); PLATELET COUNT 142 10^3/uL (134-434); RBC 3.97 M/mm3 (4.00-5.60); RDW 15.7 % (11.9-15.9); WHITE BLOOD COUNT 5.8 K/mm3 (4.0-10.0)
[2022-05-06 14:27] LABS: TOT PROT 6.5 g/dl (6.4-8.2)
[2022-05-06 14:29] LABS: BILIRUBIN,TOTAL 0.5 mg/dL (0.2-1)
[2022-05-06] MEDS: THIAMINE HCL 100 MG TABLET (FP) PO SCH (22:25)
[2022-05-06] MEDS: ATORVASTATIN CA 80 MG TABLET (FP) PO SCH (22:25)
[2022-05-06] MEDS: BENZOCAINE/MENTHOL (CHLORASEPTIC ) LOZENGE MM PRN (22:29)
[2022-05-06] MEDS: QUEtiapine FUMARATE 400 MG TABLET PO SCH (23:33)
[2022-05-07] MEDS: chlordiazePOXIDE HCL 25 MG CAPSULE PO SCH ×4 (05:56→22:33)
[2022-05-07] MEDS: metFORMIN HCL 500 MG TABLET (FP) PO SCH ×2 (08:21→18:02)
[2022-05-07] MEDS: METOPROLOL TARTRATE 50 MG TABLET (FP) PO SCH ×2 (10:40→22:32)
[2022-05-07] MEDS: ASPIRIN COATED 81 MG TABLET.EC PO SCH (10:40)
[2022-05-07] MEDS: PANTOPRAZOLE 40 MG TABLET PO SCH (10:40)
[2022-05-07] MEDS: PRENATAL VITAMINS W/ FOLIC ACID TABLET (FP) PO SCH (10:40)
[2022-05-07] MEDS: amLODIPine BESYLATE 5 MG TABLET (FP) PO SCH (10:40)
[2022-05-07] MEDS: COLCHICINE 0.6 MG CAP PO SCH (10:41)
[2022-05-07] MEDS: ALLOPURINOL 100 MG TABLET (FP) PO SCH (10:41)
[2022-05-07] MEDS: SERTRALINE HCL 50 MG TABLET (FP) PO SCH (10:41)
[2022-05-07] MEDS: ATORVASTATIN CA 80 MG TABLET (FP) PO SCH (22:32)
[2022-05-07] MEDS: THIAMINE HCL 100 MG TABLET (FP) PO SCH (22:33)
[2022-05-07] MEDS: QUEtiapine FUMARATE 400 MG TABLET PO SCH (22:34)
[2022-05-08] MEDS ORDERED: chlordiazePOXIDE HCL 10 MG CAPSULE PO PRN
[2022-05-08] MEDS: BENZOCAINE/MENTHOL (CHLORASEPTIC ) LOZENGE MM PRN (05:26)
[2022-05-08] MEDS: chlordiazePOXIDE HCL 10 MG CAPSULE PO SCH ×4 (05:26→22:30)
[2022-05-08] MEDS: IBUPROFEN 400 MG TABLET (FP) PO PRN (05:27)
[2022-05-08] MEDS: metFORMIN HCL 500 MG TABLET (FP) PO SCH ×2 (07:04→18:10)
[2022-05-08] MEDS: ALLOPURINOL 100 MG TABLET (FP) PO SCH (10:54)
[2022-05-08] MEDS: amLODIPine BESYLATE 5 MG TABLET (FP) PO SCH (10:54)
[2022-05-08] MEDS: PANTOPRAZOLE 40 MG TABLET PO SCH (10:54)
[2022-05-08] MEDS: ASPIRIN COATED 81 MG TABLET.EC PO SCH (10:54)
[2022-05-08] MEDS: COLCHICINE 0.6 MG CAP PO SCH (10:55)
[2022-05-08] MEDS: SERTRALINE HCL 50 MG TABLET (FP) PO SCH (10:55)
[2022-05-08] MEDS: PRENATAL VITAMINS W/ FOLIC ACID TABLET (FP) PO SCH (10:56)
[2022-05-08] MEDS: METOPROLOL TARTRATE 50 MG TABLET (FP) PO SCH ×2 (13:48→22:24)
[2022-05-08] MEDS: THIAMINE HCL 100 MG TABLET (FP) PO SCH (22:25)
[2022-05-08] MEDS: ATORVASTATIN CA 80 MG TABLET (FP) PO SCH (22:25)
[2022-05-08] MEDS: QUEtiapine FUMARATE 400 MG TABLET PO SCH (22:30)
[2022-05-09] MEDS: chlordiazePOXIDE HCL 10 MG CAPSULE PO SCH ×2 (06:05→17:52)
[2022-05-09] MEDS: metFORMIN HCL 500 MG TABLET (FP) PO SCH ×2 (06:05→17:51)
[2022-05-09] MEDS: PRENATAL VITAMINS W/ FOLIC ACID TABLET (FP) PO SCH (10:15)
[2022-05-09] MEDS: COLCHICINE 0.6 MG CAP PO SCH (10:15)
[2022-05-09] MEDS: ASPIRIN COATED 81 MG TABLET.EC PO SCH (10:15)
[2022-05-09] MEDS: METOPROLOL TARTRATE 50 MG TABLET (FP) PO SCH ×2 (10:16→22:43)
[2022-05-09] MEDS: SERTRALINE HCL 50 MG TABLET (FP) PO SCH (10:16)
[2022-05-09] MEDS: amLODIPine BESYLATE 5 MG TABLET (FP) PO SCH (10:16)
[2022-05-09] MEDS: PANTOPRAZOLE 40 MG TABLET PO SCH (10:16)
[2022-05-09] MEDS: ALLOPURINOL 100 MG TABLET (FP) PO SCH (10:17)
[2022-05-09] MEDS: BENZOCAINE/MENTHOL (CHLORASEPTIC ) LOZENGE MM PRN (10:18)
[2022-05-09] MEDS: ATORVASTATIN CA 80 MG TABLET (FP) PO SCH (22:43)
[2022-05-09] MEDS: QUEtiapine FUMARATE 400 MG TABLET PO SCH (22:43)
[2022-05-09] MEDS: THIAMINE HCL 100 MG TABLET (FP) PO SCH (22:43)
[2022-05-10] MEDS ORDERED: chlordiazePOXIDE HCL 10 MG CAPSULE PO ONE (05:00)
[2022-05-10] MEDS: metFORMIN HCL 500 MG TABLET (FP) PO SCH (06:54)
[2022-05-10 10:38] VITALS: RESP 19
[2022-05-10] MEDS: ALLOPURINOL 100 MG TABLET (FP) PO SCH (10:46)
[2022-05-10] MEDS: PRENATAL VITAMINS W/ FOLIC ACID TABLET (FP) PO SCH (10:46)
[2022-05-10] MEDS: COLCHICINE 0.6 MG CAP PO SCH (10:46)
[2022-05-10] MEDS: ASPIRIN COATED 81 MG TABLET.EC PO SCH (10:47)
[2022-05-10] MEDS: SERTRALINE HCL 50 MG TABLET (FP) PO SCH (10:47)
[2022-05-10] MEDS: PANTOPRAZOLE 40 MG TABLET PO SCH (10:47)
[2022-05-10] MEDS: METOPROLOL TARTRATE 50 MG TABLET (FP) PO SCH (10:47)
[2022-05-10] MEDS: amLODIPine BESYLATE 5 MG TABLET (FP) PO SCH (10:47)
[2022-05-10 13:47] VITALS: BP 141/82; PULSE 82; TEMP 97.8
== END 2022-05-10 15:28 | disposition home or self-care (01) | DRG 775 ==
LOC: YASAS 15:43 → Y6N 20:56
PROVIDERS: ADMIT Allergy & Immunology; ATTEND Surgery
PROC: HZ2ZZZZ Detoxification Services for Substance Abuse Treatment (ICD-10-PCS; principal; 2022-05-05)
DX: F10.230 Alcohol dependence with withdrawal, uncomplicated (principal); F10.220 Alcohol dependence with intoxication, uncomplicated; F10.24 Alcohol dependence with alcohol-induced mood disorder; F10.282 Alcohol dependence with alcohol-induced sleep disorder; F10.280 Alcohol dependence with alcohol-induced anxiety disorder; F32.A Depression, unspecified; I10 Essential (primary) hypertension; E11.9 Type 2 diabetes mellitus without complications; K21.9 Gastro-esophageal reflux disease without esophagitis; M1A.09X0 Idiopathic chronic gout, multiple sites, without tophus (tophi); E78.5 Hyperlipidemia, unspecified; M19.90 Unspecified osteoarthritis, unspecified site; E66.9 Obesity, unspecified; Z68.38 Body mass index [BMI] 38.0-38.9, adult; Z87.438 Personal history of other diseases of male genital organs; Z86.59 Personal history of other mental and behavioral disorders; Z79.84 Long term (current) use of oral hypoglycemic drugs; Z88.8 Allergy status to other drugs, medicaments and biological substances; Z56.0 Unemployment, unspecified
CPT/HCPCS: 36415; 80053; 82962; 85027; 86780; 87811; 93005; 93010; C9803-CS; U0003; U0005

== ENCOUNTER 2022-05-10 15:34 | Inpatient (IN) | payer OTHER ==
[2022-05-10] MEDS ORDERED: P-EPHED 60MG/TRIPROLIDI 2.5MG TABLET PO PRN (18:16)
[2022-05-10] MEDS ORDERED: BENZOCAINE/MENTHOL (CHLORASEPTIC ) LOZENGE MM PRN (18:16)
[2022-05-10] MEDS ORDERED: LOPERAMIDE HCL 2 MG CAPSULE PO PRN (18:16)
[2022-05-10] MEDS ORDERED: MAG HYDROX/AL HYDROX/SIMETH 30 ML UNIT-DOSE CUP PO PRN (18:16)
[2022-05-10] MEDS ORDERED: guaiFENesin 200 MG/10 ML 10 ML UNIT-DOSE CUPS PO PRN (18:16)
[2022-05-10] MEDS ORDERED: MAGNESIUM CITRATE 300 ML BOTTLE PO PRN (18:16)
[2022-05-10] MEDS ORDERED: ACETAMINOPHEN 325 MG TABLET (FP) PO PRN (18:16)
[2022-05-10] MEDS ORDERED: MAGNESIUM HYDROX 2400MG/30ML ORAL SUSPENSION 30 ML CUP PO PRN (18:16)
[2022-05-10] MEDS: THIAMINE HCL 100 MG TABLET (FP) PO SCH (21:31)
[2022-05-10] MEDS: MELATONIN 5 MG TABLETS PO PRN (21:31)
[2022-05-10] MEDS: ATORVASTATIN CA 80 MG TABLET (FP) PO SCH (21:32)
[2022-05-10] MEDS ORDERED: QUEtiapine FUMARATE 200 MG TABLET PO ONE (22:00)
[2022-05-10] MEDS: METOPROLOL TARTRATE 50 MG TABLET (FP) PO SCH (22:45)
[2022-05-11] MEDS: metFORMIN HCL 500 MG TABLET (FP) PO SCH ×2 (06:52→17:05)
[2022-05-11] MEDS: METOPROLOL TARTRATE 50 MG TABLET (FP) PO SCH ×2 (09:48→21:24)
[2022-05-11] MEDS: ALLOPURINOL 100 MG TABLET (FP) PO SCH (09:49)
[2022-05-11] MEDS: amLODIPine BESYLATE 5 MG TABLET (FP) PO SCH (09:49)
[2022-05-11] MEDS: PANTOPRAZOLE 40 MG TABLET PO SCH (09:49)
[2022-05-11] MEDS: PRENATAL VITAMINS W/ FOLIC ACID TABLET (FP) PO SCH (09:49)
[2022-05-11] MEDS: COLCHICINE 0.6 MG TAB PO SCH (09:49)
[2022-05-11] MEDS: SERTRALINE HCL 50 MG TABLET (FP) PO SCH (10:43)
[2022-05-11] MEDS: THIAMINE HCL 100 MG TABLET (FP) PO SCH (21:23)
[2022-05-11] MEDS: MELATONIN 5 MG TABLETS PO PRN (21:23)
[2022-05-11] MEDS: ATORVASTATIN CA 80 MG TABLET (FP) PO SCH (21:24)
[2022-05-11] MEDS: IBUPROFEN 400 MG TABLET (FP) PO PRN (21:25)
[2022-05-11] MEDS ORDERED: QUEtiapine FUMARATE 300 MG TABLET PO SCH (22:00)
[2022-05-12] MEDS: metFORMIN HCL 500 MG TABLET (FP) PO SCH ×2 (06:57→17:10)
[2022-05-12] MEDS: ALLOPURINOL 100 MG TABLET (FP) PO SCH (10:04)
[2022-05-12] MEDS: SERTRALINE HCL 50 MG TABLET (FP) PO SCH (10:04)
[2022-05-12] MEDS: PANTOPRAZOLE 40 MG TABLET PO SCH (10:04)
[2022-05-12] MEDS: COLCHICINE 0.6 MG TAB PO SCH (10:04)
[2022-05-12] MEDS: PRENATAL VITAMINS W/ FOLIC ACID TABLET (FP) PO SCH (10:04)
[2022-05-12] MEDS: amLODIPine BESYLATE 5 MG TABLET (FP) PO SCH (10:04)
[2022-05-12] MEDS: METOPROLOL TARTRATE 50 MG TABLET (FP) PO SCH ×2 (10:05→21:14)
[2022-05-12] MEDS: THIAMINE HCL 100 MG TABLET (FP) PO SCH (21:14)
[2022-05-12] MEDS: QUEtiapine FUMARATE 200 MG TABLET PO SCH (21:16)
[2022-05-12] MEDS: ATORVASTATIN CA 80 MG TABLET (FP) PO SCH (21:17)
[2022-05-12] MEDS: IBUPROFEN 400 MG TABLET (FP) PO PRN (21:18)
[2022-05-13] MEDS: metFORMIN HCL 500 MG TABLET (FP) PO SCH ×2 (06:28→16:43)
[2022-05-13] MEDS: INSULIN SLIDING SCALE (NOVOLOG) 1 VIAL SQ SCH ×2 (06:28→16:42)
[2022-05-13] MEDS: COLCHICINE 0.6 MG TAB PO SCH (09:52)
[2022-05-13] MEDS: amLODIPine BESYLATE 5 MG TABLET (FP) PO SCH (09:52)
[2022-05-13] MEDS: METOPROLOL TARTRATE 50 MG TABLET (FP) PO SCH ×2 (09:52→21:37)
[2022-05-13] MEDS: PRENATAL VITAMINS W/ FOLIC ACID TABLET (FP) PO SCH (09:52)
[2022-05-13] MEDS: SERTRALINE HCL 50 MG TABLET (FP) PO SCH (09:53)
[2022-05-13] MEDS: ALLOPURINOL 100 MG TABLET (FP) PO SCH (09:53)
[2022-05-13] MEDS: PANTOPRAZOLE 40 MG TABLET PO SCH (09:53)
[2022-05-13] MEDS: QUEtiapine FUMARATE 200 MG TABLET PO SCH (21:37)
[2022-05-13] MEDS: ATORVASTATIN CA 80 MG TABLET (FP) PO SCH (21:37)
[2022-05-13] MEDS: THIAMINE HCL 100 MG TABLET (FP) PO SCH (21:38)
[2022-05-14] MEDS: metFORMIN HCL 500 MG TABLET (FP) PO SCH ×2 (06:47→16:38)
[2022-05-14] MEDS: INSULIN SLIDING SCALE (NOVOLOG) 1 VIAL SQ SCH ×2 (06:48→16:38)
[2022-05-14] MEDS: COLCHICINE 0.6 MG TAB PO SCH (10:55)
[2022-05-14] MEDS: METOPROLOL TARTRATE 50 MG TABLET (FP) PO SCH ×2 (10:55→21:06)
[2022-05-14] MEDS: ALLOPURINOL 100 MG TABLET (FP) PO SCH (10:55)
[2022-05-14] MEDS: SERTRALINE HCL 50 MG TABLET (FP) PO SCH (10:55)
[2022-05-14] MEDS: PRENATAL VITAMINS W/ FOLIC ACID TABLET (FP) PO SCH (10:55)
[2022-05-14] MEDS: amLODIPine BESYLATE 5 MG TABLET (FP) PO SCH (10:55)
[2022-05-14] MEDS: PANTOPRAZOLE 40 MG TABLET PO SCH (10:55)
[2022-05-14] MEDS: THIAMINE HCL 100 MG TABLET (FP) PO SCH (21:05)
[2022-05-14] MEDS: MELATONIN 5 MG TABLETS PO PRN (21:05)
[2022-05-14] MEDS: ATORVASTATIN CA 80 MG TABLET (FP) PO SCH (21:06)
[2022-05-14] MEDS: QUEtiapine FUMARATE 200 MG TABLET PO SCH (21:07)
[2022-05-15 06:42] VITALS: PULSE 84; RESP 16; TEMP 97.3
[2022-05-15] MEDS: metFORMIN HCL 500 MG TABLET (FP) PO SCH (06:53)
[2022-05-15] MEDS: INSULIN SLIDING SCALE (NOVOLOG) 1 VIAL SQ SCH (06:54)
[2022-05-15 09:53] VITALS: BP 121/78
[2022-05-15] MEDS: amLODIPine BESYLATE 5 MG TABLET (FP) PO SCH (10:01)
[2022-05-15] MEDS: PANTOPRAZOLE 40 MG TABLET PO SCH (10:01)
[2022-05-15] MEDS: METOPROLOL TARTRATE 50 MG TABLET (FP) PO SCH (10:01)
[2022-05-15] MEDS: PRENATAL VITAMINS W/ FOLIC ACID TABLET (FP) PO SCH (10:01)
[2022-05-15] MEDS: ALLOPURINOL 100 MG TABLET (FP) PO SCH (10:01)
[2022-05-15] MEDS: COLCHICINE 0.6 MG TAB PO SCH (10:01)
[2022-05-15] MEDS: SERTRALINE HCL 50 MG TABLET (FP) PO SCH (10:02)
== END 2022-05-15 11:58 | disposition left against medical advice (07) | DRG 770 ==
LOC: YASAS 15:34 → Y3E 15:35
PROVIDERS: ADMIT Allergy & Immunology; ATTEND Psychiatry & Neurology Pain Medicine
PROC: HZ42ZZZ Group Counseling for Substance Abuse Treatment, Cognitive-Behavioral (ICD-10-PCS; principal; 2022-05-10)
DX: F10.20 Alcohol dependence, uncomplicated (principal); F25.9 Schizoaffective disorder, unspecified; I10 Essential (primary) hypertension; E11.9 Type 2 diabetes mellitus without complications; K21.9 Gastro-esophageal reflux disease without esophagitis; E78.5 Hyperlipidemia, unspecified; E66.9 Obesity, unspecified; Z68.38 Body mass index [BMI] 38.0-38.9, adult; Z87.438 Personal history of other diseases of male genital organs; Z86.59 Personal history of other mental and behavioral disorders; Z79.84 Long term (current) use of oral hypoglycemic drugs; Z88.8 Allergy status to other drugs, medicaments and biological substances; Z56.0 Unemployment, unspecified
CPT/HCPCS: 36415; 82962; 84550

== ENCOUNTER 2022-07-24 10:37 | Inpatient (IN) | payer OTHER ==
[2022-07-24 11:26] VITALS: BMI 38.7
[2022-07-24] MEDS ORDERED: chlordiazePOXIDE HCL 25 MG CAPSULE PO PRN (11:51)
[2022-07-24] MEDS ORDERED: NALOXONE HCL (KLOXXADO) 8 MG SPRAY NS PRN (11:51)
[2022-07-24] MEDS ORDERED: LOPERAMIDE HCL 2 MG CAPSULE PO PRN (11:51)
[2022-07-24] MEDS ORDERED: BISMUTH SUBSALICYLATE 262 MG/15 ML BTL PO PRN (11:51)
[2022-07-24] MEDS ORDERED: ONDANSETRON *ODT* 4 MG TABLET SL PRN (11:51)
[2022-07-24] MEDS ORDERED: MAGNESIUM HYDROX 2400MG/30ML ORAL SUSPENSION 30 ML CUP PO PRN (11:51)
[2022-07-24] MEDS ORDERED: ACETAMINOPHEN 325 MG TABLET (FP) PO PRN ×2 (11:51)
[2022-07-24] MEDS ORDERED: MAG HYDROX/AL HYDROX/SIMETH 30 ML UNIT-DOSE CUP PO PRN (11:51)
[2022-07-24] MEDS ORDERED: DICYCLOMINE HCL 10 MG CAPSULE PO PRN (11:51)
[2022-07-24] MEDS: NICOTINE 7 MG/24 HOURS TOPICAL PATCH TD SCH (14:22)
[2022-07-24] MEDS: METHOCARBAMOL 500 MG TABLET PO PRN (14:22)
[2022-07-24] MEDS: IBUPROFEN 600 MG TABLET (FP) PO PRN (14:22)
[2022-07-24] MEDS: PRENATAL VITAMINS W/ FOLIC ACID TABLET (FP) PO SCH (14:23)
[2022-07-24] MEDS: NICOTINE 10 MG CARTRIDGE (INHALER) IH PRN (14:27)
[2022-07-24 17:02] LABS: HEMATOCRIT 38.2 % (35.4-49); HEMOGLOBIN 12.8 GM/dL (11.7-16.9); MCH 30.6 pg (25.7-33.7); MCHC 33.6 g/dl (32.0-35.9); MEAN CELL VOLUME 91.1 fl (80-96); MEAN PLT VOLUME 10.4 fl (7.5-11.1); PLATELET COUNT 126 10^3/uL (134-434); RBC 4.19 M/mm3 (4.00-5.60); RDW 16.5 % (11.9-15.9); WHITE BLOOD COUNT 4.3 K/mm3 (4.0-10.0)
[2022-07-24 17:09] LABS: ALBUMIN 3.5 g/dl (3.4-5.0); CALCIUM 9.3 mg/dL (8.5-10.1)
[2022-07-24 17:10] LABS: BLOOD UREA NITROGEN 10.4 mg/dL (7-18)
[2022-07-24 17:12] LABS: CREATININE 1.1 mg/dL (0.55-1.3)
[2022-07-24 17:14] LABS: BILIRUBIN,TOTAL 0.5 mg/dL (0.2-1); TOT PROT 6.9 g/dl (6.4-8.2)
[2022-07-24] MEDS: chlordiazePOXIDE HCL 25 MG CAPSULE PO SCH ×2 (17:41→22:39)
[2022-07-24] MEDS: IBUPROFEN 400 MG TABLET (FP) PO PRN (17:44)
[2022-07-24] MEDS ORDERED: MELATONIN 5 MG TABLETS PO SCH (22:00)
[2022-07-24] MEDS: THIAMINE HCL 100 MG TABLET (FP) PO SCH (22:39)
[2022-07-24] MEDS: QUEtiapine FUMARATE 400 MG TABLET PO SCH (22:39)
[2022-07-25] MEDS: chlordiazePOXIDE HCL 25 MG CAPSULE PO SCH ×4 (06:31→22:21)
[2022-07-25] MEDS: PRENATAL VITAMINS W/ FOLIC ACID TABLET (FP) PO SCH (10:35)
[2022-07-25] MEDS: SERTRALINE HCL 50 MG TABLET (FP) PO SCH (10:35)
[2022-07-25] MEDS: hydrOXYzine PAMOATE 25 MG CAPSULE (FP) PO PRN (10:35)
[2022-07-25] MEDS: METHOCARBAMOL 500 MG TABLET PO PRN (10:35)
[2022-07-25] MEDS: NICOTINE 7 MG/24 HOURS TOPICAL PATCH TD SCH (10:35)
[2022-07-25] MEDS: NICOTINE 10 MG CARTRIDGE (INHALER) IH PRN (10:36)
[2022-07-25] MEDS: IBUPROFEN 600 MG TABLET (FP) PO PRN ×2 (10:37→22:25)
[2022-07-25] MEDS: BENZOCAINE/MENTHOL (CHLORASEPTIC ) LOZENGE MM PRN ×2 (10:45→14:38)
[2022-07-25] MEDS: METOPROLOL TARTRATE 50 MG TABLET (FP) PO SCH ×2 (12:12→22:21)
[2022-07-25] MEDS: PANTOPRAZOLE 40 MG TABLET PO SCH (12:12)
[2022-07-25] MEDS: COLCHICINE 0.6 MG CAP PO SCH (13:51)
[2022-07-25] MEDS ORDERED: cloNIDine HCL 0.1 MG TABLET PO ONE (15:30)
[2022-07-25] MEDS: guaiFENesin 200 MG/10 ML 10 ML UNIT-DOSE CUPS PO PRN ×2 (15:32→22:26)
[2022-07-25] MEDS: metFORMIN HCL 500 MG TABLET (FP) PO SCH (17:41)
[2022-07-25] MEDS: QUEtiapine FUMARATE 400 MG TABLET PO SCH (22:21)
[2022-07-25] MEDS: THIAMINE HCL 100 MG TABLET (FP) PO SCH (22:21)
[2022-07-25] MEDS: ATORVASTATIN CA 80 MG TABLET (FP) PO SCH (22:21)
[2022-07-26] MEDS: metFORMIN HCL 500 MG TABLET (FP) PO SCH ×2 (05:59→17:52)
[2022-07-26] MEDS: chlordiazePOXIDE HCL 25 MG CAPSULE PO SCH ×4 (05:59→23:42)
[2022-07-26] MEDS: IBUPROFEN 600 MG TABLET (FP) PO PRN ×2 (06:01→23:07)
[2022-07-26] MEDS: guaiFENesin 200 MG/10 ML 10 ML UNIT-DOSE CUPS PO PRN ×4 (06:03→23:03)
[2022-07-26] MEDS ORDERED: ALLOPURINOL 100 MG TABLET (FP) PO SCH (10:00)
[2022-07-26] MEDS: METOPROLOL TARTRATE 50 MG TABLET (FP) PO SCH ×2 (10:20→23:00)
[2022-07-26] MEDS: ALLOPURINOL 300 MG TABLET (FP) PO SCH (10:21)
[2022-07-26] MEDS: PANTOPRAZOLE 40 MG TABLET PO SCH (10:21)
[2022-07-26] MEDS: amLODIPine BESYLATE 5 MG TABLET (FP) PO SCH (10:21)
[2022-07-26] MEDS: SERTRALINE HCL 50 MG TABLET (FP) PO SCH (10:21)
[2022-07-26] MEDS: COLCHICINE 0.6 MG CAP PO SCH (10:21)
[2022-07-26] MEDS: IBUPROFEN 400 MG TABLET (FP) PO PRN (10:22)
[2022-07-26] MEDS: PRENATAL VITAMINS W/ FOLIC ACID TABLET (FP) PO SCH (10:22)
[2022-07-26] MEDS: BENZOCAINE/MENTHOL (CHLORASEPTIC ) LOZENGE MM PRN ×2 (10:24→15:20)
[2022-07-26] MEDS: NICOTINE 7 MG/24 HOURS TOPICAL PATCH TD SCH (11:09)
[2022-07-26] MEDS: QUEtiapine FUMARATE 400 MG TABLET PO SCH (23:01)
[2022-07-26] MEDS: THIAMINE HCL 100 MG TABLET (FP) PO SCH (23:01)
[2022-07-26] MEDS: ATORVASTATIN CA 80 MG TABLET (FP) PO SCH (23:01)
[2022-07-27] MEDS ORDERED: chlordiazePOXIDE HCL 10 MG CAPSULE PO PRN
[2022-07-27] MEDS: chlordiazePOXIDE HCL 10 MG CAPSULE PO SCH ×4 (05:53→22:42)
[2022-07-27] MEDS: IBUPROFEN 400 MG TABLET (FP) PO PRN (05:54)
[2022-07-27] MEDS: guaiFENesin 200 MG/10 ML 10 ML UNIT-DOSE CUPS PO PRN (05:57)
[2022-07-27] MEDS: metFORMIN HCL 500 MG TABLET (FP) PO SCH ×2 (07:31→17:30)
[2022-07-27] MEDS: SERTRALINE HCL 50 MG TABLET (FP) PO SCH (10:42)
[2022-07-27] MEDS: hydrOXYzine PAMOATE 25 MG CAPSULE (FP) PO PRN (10:42)
[2022-07-27] MEDS: PRENATAL VITAMINS W/ FOLIC ACID TABLET (FP) PO SCH (10:42)
[2022-07-27] MEDS: METOPROLOL TARTRATE 50 MG TABLET (FP) PO SCH ×2 (10:43→22:33)
[2022-07-27] MEDS: NICOTINE 7 MG/24 HOURS TOPICAL PATCH TD SCH (10:43)
[2022-07-27] MEDS: COLCHICINE 0.6 MG CAP PO SCH (10:43)
[2022-07-27] MEDS: PANTOPRAZOLE 40 MG TABLET PO SCH (10:43)
[2022-07-27] MEDS: amLODIPine BESYLATE 5 MG TABLET (FP) PO SCH (10:43)
[2022-07-27] MEDS: ALLOPURINOL 300 MG TABLET (FP) PO SCH (10:43)
[2022-07-27] MEDS: METHOCARBAMOL 500 MG TABLET PO PRN (10:45)
[2022-07-27] MEDS: THIAMINE HCL 100 MG TABLET (FP) PO SCH (22:33)
[2022-07-27] MEDS: QUEtiapine FUMARATE 400 MG TABLET PO SCH (22:34)
[2022-07-27] MEDS: ATORVASTATIN CA 80 MG TABLET (FP) PO SCH (22:34)
[2022-07-28] MEDS: chlordiazePOXIDE HCL 10 MG CAPSULE PO SCH ×2 (05:27→17:32)
[2022-07-28] MEDS: METHOCARBAMOL 500 MG TABLET PO PRN ×2 (05:28→10:28)
[2022-07-28] MEDS: IBUPROFEN 600 MG TABLET (FP) PO PRN ×2 (05:28→10:28)
[2022-07-28] MEDS: metFORMIN HCL 500 MG TABLET (FP) PO SCH ×2 (06:47→17:32)
[2022-07-28] MEDS: amLODIPine BESYLATE 5 MG TABLET (FP) PO SCH (10:22)
[2022-07-28] MEDS: PRENATAL VITAMINS W/ FOLIC ACID TABLET (FP) PO SCH (10:22)
[2022-07-28] MEDS: METOPROLOL TARTRATE 50 MG TABLET (FP) PO SCH ×2 (10:22→22:50)
[2022-07-28] MEDS: NICOTINE 7 MG/24 HOURS TOPICAL PATCH TD SCH (10:23)
[2022-07-28] MEDS: COLCHICINE 0.6 MG CAP PO SCH (10:23)
[2022-07-28] MEDS: ALLOPURINOL 300 MG TABLET (FP) PO SCH (10:23)
[2022-07-28] MEDS: SERTRALINE HCL 50 MG TABLET (FP) PO SCH (10:25)
[2022-07-28] MEDS: PANTOPRAZOLE 40 MG TABLET PO SCH (10:25)
[2022-07-28] MEDS: NICOTINE 10 MG CARTRIDGE (INHALER) IH PRN (15:07)
[2022-07-28] MEDS: ATORVASTATIN CA 80 MG TABLET (FP) PO SCH (22:50)
[2022-07-28] MEDS: THIAMINE HCL 100 MG TABLET (FP) PO SCH (22:50)
[2022-07-28] MEDS: QUEtiapine FUMARATE 400 MG TABLET PO SCH (22:50)
[2022-07-29] MEDS ORDERED: chlordiazePOXIDE HCL 10 MG CAPSULE PO ONE (05:00)
[2022-07-29] MEDS: metFORMIN HCL 500 MG TABLET (FP) PO SCH (06:23)
[2022-07-29 09:27] VITALS: BP 131/89; PULSE 80; RESP 18; TEMP 97.5
[2022-07-29] MEDS: PRENATAL VITAMINS W/ FOLIC ACID TABLET (FP) PO SCH (10:18)
[2022-07-29] MEDS: COLCHICINE 0.6 MG CAP PO SCH (10:19)
[2022-07-29] MEDS: amLODIPine BESYLATE 5 MG TABLET (FP) PO SCH (10:19)
[2022-07-29] MEDS: SERTRALINE HCL 50 MG TABLET (FP) PO SCH (10:19)
[2022-07-29] MEDS: METOPROLOL TARTRATE 50 MG TABLET (FP) PO SCH (10:19)
[2022-07-29] MEDS: PANTOPRAZOLE 40 MG TABLET PO SCH (10:19)
[2022-07-29] MEDS: NICOTINE 7 MG/24 HOURS TOPICAL PATCH TD SCH (10:19)
[2022-07-29] MEDS: ALLOPURINOL 300 MG TABLET (FP) PO SCH (10:20)
[2022-07-29] MEDS: hydrOXYzine PAMOATE 25 MG CAPSULE (FP) PO PRN (10:20)
[2022-07-29] MEDS: IBUPROFEN 600 MG TABLET (FP) PO PRN (10:45)
== END 2022-07-29 11:30 | disposition home or self-care (01) | DRG 775 ==
LOC: YASAS 10:37 → Y6N 13:55
PROVIDERS: ADMIT Allergy & Immunology; ATTEND Surgery
PROC: HZ2ZZZZ Detoxification Services for Substance Abuse Treatment (ICD-10-PCS; principal; 2022-07-24)
DX: F10.230 Alcohol dependence with withdrawal, uncomplicated (principal); F17.210 Nicotine dependence, cigarettes, uncomplicated; F10.282 Alcohol dependence with alcohol-induced sleep disorder; F20.9 Schizophrenia, unspecified; G47.30 Sleep apnea, unspecified; I10 Essential (primary) hypertension; K21.9 Gastro-esophageal reflux disease without esophagitis; E11.9 Type 2 diabetes mellitus without complications; Z79.84 Long term (current) use of oral hypoglycemic drugs; M1A.09X0 Idiopathic chronic gout, multiple sites, without tophus (tophi); E78.00 Pure hypercholesterolemia, unspecified; E66.9 Obesity, unspecified; Z68.38 Body mass index [BMI] 38.0-38.9, adult; Z87.11 Personal history of peptic ulcer disease; Z88.7 Allergy status to serum and vaccine
CPT/HCPCS: 36415; 80053; 82962; 85027; 86780; 87811; C9803-CS; U0003; U0005

== ENCOUNTER 2022-08-18 10:24 | Inpatient (IN) | payer OTHER ==
[2022-08-18] MEDS ORDERED: ACETAMINOPHEN 325 MG TABLET (FP) PO PRN (12:02)
[2022-08-18] MEDS ORDERED: BISMUTH SUBSALICYLATE 262 MG/15 ML BTL PO PRN (12:02)
[2022-08-18] MEDS ORDERED: POLYETHYLENE GLYCOL (HEALTHYLAX) 3350 17 GM PACKET PO PRN (12:02)
[2022-08-18] MEDS ORDERED: DICYCLOMINE HCL 10 MG CAPSULE PO PRN (12:02)
[2022-08-18] MEDS ORDERED: NICOTINE 10 MG CARTRIDGE (INHALER) IH PRN (12:02)
[2022-08-18] MEDS ORDERED: hydrOXYzine PAMOATE 25 MG CAPSULE (FP) PO PRN (12:02)
[2022-08-18] MEDS ORDERED: ONDANSETRON *ODT* 4 MG TABLET SL PRN (12:02)
[2022-08-18] MEDS ORDERED: MAGNESIUM HYDROX 2400MG/30ML ORAL SUSPENSION 30 ML CUP PO PRN (12:02)
[2022-08-18] MEDS ORDERED: IBUPROFEN 600 MG TABLET (FP) PO PRN (12:02)
[2022-08-18] MEDS ORDERED: MAG HYDROX/AL HYDROX/SIMETH 30 ML UNIT-DOSE CUP PO PRN (12:02)
[2022-08-18] MEDS ORDERED: NALOXONE HCL (KLOXXADO) 8 MG SPRAY NS PRN (12:02)
[2022-08-18] MEDS ORDERED: chlordiazePOXIDE HCL 25 MG CAPSULE PO PRN (12:02)
[2022-08-18] MEDS ORDERED: LOPERAMIDE HCL 2 MG CAPSULE PO PRN (12:02)
[2022-08-18 12:06] VITALS: BMI 38.7
[2022-08-18] MEDS ORDERED: NICOTINE 7 MG/24 HOURS TOPICAL PATCH TD ONE (13:24)
[2022-08-18] MEDS ORDERED: amLODIPine BESYLATE 5 MG TABLET (FP) ONE (13:24)
[2022-08-18] MEDS: amLODIPine BESYLATE 5 MG TABLET (FP) PO SCH (13:29)
[2022-08-18] MEDS: NICOTINE 7 MG/24 HOURS TOPICAL PATCH TD SCH (13:29)
[2022-08-18] MEDS: PRENATAL VITAMINS W/ FOLIC ACID TABLET (FP) PO SCH (13:52)
[2022-08-18] MEDS: METHOCARBAMOL 500 MG TABLET PO PRN (13:52)
[2022-08-18] MEDS: ALLOPURINOL 300 MG TABLET (FP) PO SCH (15:55)
[2022-08-18] MEDS: IBUPROFEN 400 MG TABLET (FP) PO PRN (17:37)
[2022-08-18] MEDS: chlordiazePOXIDE HCL 25 MG CAPSULE PO SCH ×2 (17:38→23:25)
[2022-08-18] MEDS: metFORMIN HCL 500 MG TABLET (FP) PO SCH (17:41)
[2022-08-18] MEDS: ACETAMINOPHEN 325 MG TABLET (FP) PO PRN (19:57)
[2022-08-18] MEDS ORDERED: MELATONIN 5 MG TABLETS PO SCH (22:00)
[2022-08-18] MEDS: METOPROLOL TARTRATE 50 MG TABLET (FP) PO SCH (23:27)
[2022-08-18] MEDS: QUEtiapine FUMARATE 400 MG TABLET PO SCH (23:27)
[2022-08-18] MEDS: ATORVASTATIN CA 80 MG TABLET (FP) PO SCH (23:27)
[2022-08-18] MEDS: THIAMINE HCL 100 MG TABLET (FP) PO SCH (23:28)
[2022-08-19] MEDS: metFORMIN HCL 500 MG TABLET (FP) PO SCH ×2 (06:18→17:50)
[2022-08-19] MEDS: chlordiazePOXIDE HCL 25 MG CAPSULE PO SCH ×4 (06:18→22:46)
[2022-08-19] MEDS: IBUPROFEN 400 MG TABLET (FP) PO PRN ×2 (06:20→13:38)
[2022-08-19] MEDS: SERTRALINE HCL 50 MG TABLET (FP) PO SCH (10:55)
[2022-08-19] MEDS: PRENATAL VITAMINS W/ FOLIC ACID TABLET (FP) PO SCH (10:55)
[2022-08-19] MEDS: ALLOPURINOL 300 MG TABLET (FP) PO SCH (10:55)
[2022-08-19] MEDS: PANTOPRAZOLE 40 MG TABLET PO SCH (10:55)
[2022-08-19] MEDS: amLODIPine BESYLATE 5 MG TABLET (FP) PO SCH (10:56)
[2022-08-19] MEDS: METOPROLOL TARTRATE 50 MG TABLET (FP) PO SCH ×2 (10:56→22:45)
[2022-08-19] MEDS: NICOTINE 7 MG/24 HOURS TOPICAL PATCH TD SCH (10:57)
[2022-08-19] MEDS: ACETAMINOPHEN 325 MG TABLET (FP) PO PRN (11:25)
[2022-08-19] MEDS: METHOCARBAMOL 500 MG TABLET PO PRN (11:25)
[2022-08-19 11:44] LABS: HEMATOCRIT 36.7 % (35.4-49); HEMOGLOBIN 12.1 GM/dL (11.7-16.9); MCH 30.2 pg (25.7-33.7); MCHC 32.8 g/dl (32.0-35.9); MEAN CELL VOLUME 91.9 fl (80-96); MEAN PLT VOLUME 11.4 fl (7.5-11.1); PLATELET COUNT 137 10^3/uL (134-434); RDW 15.8 % (11.9-15.9); WHITE BLOOD COUNT 5.6 K/mm3 (4.0-10.0)
[2022-08-19 12:34] LABS: TOT PROT 6.4 g/dl (6.4-8.2)
[2022-08-19] MEDS: COLCHICINE 0.6 MG CAP PO SCH (12:34)
[2022-08-19 12:35] LABS: BILIRUBIN,TOTAL 0.4 mg/dL (0.2-1)
[2022-08-19] MEDS: ATORVASTATIN CA 80 MG TABLET (FP) PO SCH (22:45)
[2022-08-19] MEDS: QUEtiapine FUMARATE 400 MG TABLET PO SCH (22:45)
[2022-08-19] MEDS: THIAMINE HCL 100 MG TABLET (FP) PO SCH (22:46)
[2022-08-20] MEDS: chlordiazePOXIDE HCL 25 MG CAPSULE PO SCH ×3 (05:33→17:44)
[2022-08-20] MEDS: METHOCARBAMOL 500 MG TABLET PO PRN ×2 (05:34→17:20)
[2022-08-20] MEDS: IBUPROFEN 400 MG TABLET (FP) PO PRN ×2 (05:36→22:33)
[2022-08-20] MEDS: BENZOCAINE/MENTHOL (CHLORASEPTIC ) LOZENGE MM PRN ×3 (05:38→22:40)
[2022-08-20] MEDS: metFORMIN HCL 500 MG TABLET (FP) PO SCH ×2 (07:08→17:19)
[2022-08-20] MEDS: METOPROLOL TARTRATE 50 MG TABLET (FP) PO SCH ×2 (10:15→22:33)
[2022-08-20] MEDS: PANTOPRAZOLE 40 MG TABLET PO SCH (10:15)
[2022-08-20] MEDS: amLODIPine BESYLATE 5 MG TABLET (FP) PO SCH (10:15)
[2022-08-20] MEDS: COLCHICINE 0.6 MG CAP PO SCH (10:15)
[2022-08-20] MEDS: PRENATAL VITAMINS W/ FOLIC ACID TABLET (FP) PO SCH (10:15)
[2022-08-20] MEDS: SERTRALINE HCL 50 MG TABLET (FP) PO SCH (10:15)
[2022-08-20] MEDS: ALLOPURINOL 300 MG TABLET (FP) PO SCH (10:16)
[2022-08-20] MEDS: NICOTINE 7 MG/24 HOURS TOPICAL PATCH TD SCH (10:16)
[2022-08-20] MEDS: ACETAMINOPHEN 325 MG TABLET (FP) PO PRN (10:17)
[2022-08-20] MEDS ORDERED: predniSONE 10 MG TABLET (UD) PO ONE ×2 (14:00→17:00)
[2022-08-20] MEDS: THIAMINE HCL 100 MG TABLET (FP) PO SCH (22:32)
[2022-08-20] MEDS: ATORVASTATIN CA 80 MG TABLET (FP) PO SCH (22:33)
[2022-08-20] MEDS: QUEtiapine FUMARATE 400 MG TABLET PO SCH (22:33)
[2022-08-21] MEDS ORDERED: chlordiazePOXIDE HCL 10 MG CAPSULE PO PRN
[2022-08-21] MEDS: chlordiazePOXIDE HCL 25 MG CAPSULE PO SCH (00:25)
[2022-08-21] MEDS: chlordiazePOXIDE HCL 10 MG CAPSULE PO SCH ×4 (05:34→22:28)
[2022-08-21] MEDS: IBUPROFEN 400 MG TABLET (FP) PO PRN (05:36)
[2022-08-21] MEDS: BENZOCAINE/MENTHOL (CHLORASEPTIC ) LOZENGE MM PRN ×2 (05:40→22:29)
[2022-08-21] MEDS ORDERED: predniSONE 20 MG TABLET (UD) PO ONE (06:00)
[2022-08-21] MEDS: metFORMIN HCL 500 MG TABLET (FP) PO SCH ×2 (06:38→17:06)
[2022-08-21] MEDS: ALLOPURINOL 300 MG TABLET (FP) PO SCH (10:31)
[2022-08-21] MEDS: COLCHICINE 0.6 MG CAP PO SCH (10:31)
[2022-08-21] MEDS: PRENATAL VITAMINS W/ FOLIC ACID TABLET (FP) PO SCH (10:31)
[2022-08-21] MEDS: amLODIPine BESYLATE 5 MG TABLET (FP) PO SCH (10:32)
[2022-08-21] MEDS: NICOTINE 7 MG/24 HOURS TOPICAL PATCH TD SCH (10:32)
[2022-08-21] MEDS: SERTRALINE HCL 50 MG TABLET (FP) PO SCH (10:32)
[2022-08-21] MEDS: METOPROLOL TARTRATE 50 MG TABLET (FP) PO SCH ×2 (10:32→22:30)
[2022-08-21] MEDS: PANTOPRAZOLE 40 MG TABLET PO SCH (10:32)
[2022-08-21] MEDS: THIAMINE HCL 100 MG TABLET (FP) PO SCH (22:28)
[2022-08-21] MEDS: ATORVASTATIN CA 80 MG TABLET (FP) PO SCH (22:28)
[2022-08-21] MEDS: QUEtiapine FUMARATE 400 MG TABLET PO SCH (22:30)
[2022-08-21] MEDS: METHOCARBAMOL 500 MG TABLET PO PRN (22:32)
[2022-08-22] MEDS ORDERED: chlordiazePOXIDE HCL 10 MG CAPSULE PO SCH (05:00)
[2022-08-22] MEDS ORDERED: predniSONE 10 MG TABLET (UD) PO ONE (06:00)
[2022-08-22] MEDS: metFORMIN HCL 500 MG TABLET (FP) PO SCH (06:48)
[2022-08-22] MEDS: METOPROLOL TARTRATE 50 MG TABLET (FP) PO SCH (10:15)
[2022-08-22] MEDS: amLODIPine BESYLATE 5 MG TABLET (FP) PO SCH (10:15)
[2022-08-22] MEDS: SERTRALINE HCL 50 MG TABLET (FP) PO SCH (10:15)
[2022-08-22] MEDS: NICOTINE 7 MG/24 HOURS TOPICAL PATCH TD SCH (10:16)
[2022-08-22] MEDS: COLCHICINE 0.6 MG CAP PO SCH (10:16)
[2022-08-22] MEDS: PANTOPRAZOLE 40 MG TABLET PO SCH (10:16)
[2022-08-22] MEDS: PRENATAL VITAMINS W/ FOLIC ACID TABLET (FP) PO SCH (10:16)
[2022-08-22] MEDS: ALLOPURINOL 300 MG TABLET (FP) PO SCH (10:17)
[2022-08-22] MEDS: METHOCARBAMOL 500 MG TABLET PO PRN (10:19)
[2022-08-22] MEDS: IBUPROFEN 400 MG TABLET (FP) PO PRN (10:20)
[2022-08-22 12:46] VITALS: BP 128/85; PULSE 86; RESP 18; TEMP 97.9
[2022-08-23] MEDS ORDERED: chlordiazePOXIDE HCL 10 MG CAPSULE PO ONE (05:00)
[2022-08-23] MEDS ORDERED: predniSONE 5 MG TABLET (UD) PO ONE (06:00)
== END 2022-08-22 15:07 | disposition home or self-care (01) | DRG 775 ==
LOC: YASAS 10:24 → Y6N 13:27
PROVIDERS: ADMIT Allergy & Immunology; ATTEND Surgery
PROC: HZ2ZZZZ Detoxification Services for Substance Abuse Treatment (ICD-10-PCS; principal; 2022-08-18)
DX: F10.230 Alcohol dependence with withdrawal, uncomplicated (principal); F17.210 Nicotine dependence, cigarettes, uncomplicated; F10.282 Alcohol dependence with alcohol-induced sleep disorder; F20.9 Schizophrenia, unspecified; F41.8 Other specified anxiety disorders; G47.00 Insomnia, unspecified; E78.5 Hyperlipidemia, unspecified; K21.9 Gastro-esophageal reflux disease without esophagitis; E11.9 Type 2 diabetes mellitus without complications; Z79.84 Long term (current) use of oral hypoglycemic drugs; M15.8 Other polyosteoarthritis; M1A.09X0 Idiopathic chronic gout, multiple sites, without tophus (tophi); E66.9 Obesity, unspecified; Z68.38 Body mass index [BMI] 38.0-38.9, adult; Z87.11 Personal history of peptic ulcer disease; Z88.7 Allergy status to serum and vaccine
CPT/HCPCS: 36415; 80053; 82962; 85027; 86780; 87811; C9803-CS; U0003; U0005

== ENCOUNTER 2022-10-16 08:53 | Inpatient (IN) | payer OTHER ==
[2022-10-16 09:29] VITALS: BMI 37.5
[2022-10-16] MEDS ORDERED: MAGNESIUM HYDROX 2400MG/30ML ORAL SUSPENSION 30 ML CUP PO PRN (10:18)
[2022-10-16] MEDS ORDERED: POLYETHYLENE GLYCOL (HEALTHYLAX) 3350 17 GM PACKET PO PRN (10:18)
[2022-10-16] MEDS ORDERED: NICOTINE POLACRILEX 4 MG GUM BUC PRN (10:18)
[2022-10-16] MEDS ORDERED: IBUPROFEN 400 MG TABLET (FP) PO PRN (10:18)
[2022-10-16] MEDS ORDERED: hydrOXYzine PAMOATE 25 MG CAPSULE (FP) PO PRN (10:18)
[2022-10-16] MEDS ORDERED: MAG HYDROX/AL HYDROX/SIMETH 30 ML UNIT-DOSE CUP PO PRN (10:18)
[2022-10-16] MEDS ORDERED: LOPERAMIDE HCL 2 MG CAPSULE PO PRN (10:18)
[2022-10-16] MEDS ORDERED: SERTRALINE HCL 50 MG TABLET (FP) PO ONE (10:23)
[2022-10-16] MEDS ORDERED: COLCHICINE 0.6 MG CAP PO SCH (10:30)
[2022-10-16] MEDS: FAMOTIDINE 20 MG TABLET PO SCH (13:15)
[2022-10-16] MEDS: BENZOCAINE/MENTHOL (CHLORASEPTIC ) LOZENGE MM PRN (13:15)
[2022-10-16] MEDS: ASPIRIN 81 MG CHEWABLE TABLETS PO SCH (13:15)
[2022-10-16] MEDS: ALLOPURINOL 100 MG TABLET (FP) PO SCH ×2 (13:16→22:00)
[2022-10-16] MEDS: METOPROLOL TARTRATE 50 MG TABLET (FP) PO SCH ×2 (13:17→22:01)
[2022-10-16] MEDS: NICOTINE 10 MG CARTRIDGE (INHALER) IH PRN (13:18)
[2022-10-16] MEDS: NICOTINE 21 MG/24 HOURS TOPICAL PATCH TD SCH (13:18)
[2022-10-16] MEDS: metFORMIN HCL 500 MG TABLET (FP) PO SCH (17:38)
[2022-10-16] MEDS ORDERED: ATORVASTATIN CA 40 MG TABLET (FP) ONE (20:07)
[2022-10-16 21:19] VITALS: RESP 18
[2022-10-16] MEDS ORDERED: MELATONIN 5 MG TABLETS PO SCH (22:00)
[2022-10-16] MEDS ORDERED: QUEtiapine FUMARATE 400 MG TABLET PO ONE (22:00)
[2022-10-16] MEDS ORDERED: traZODone HCL 50 MG TABLET (FP) PO ONE (22:00)
[2022-10-16] MEDS: traZODone HCL 50 MG TABLET (FP) PO SCH (22:00)
[2022-10-16] MEDS: THIAMINE HCL 100 MG TABLET (FP) PO SCH (22:01)
[2022-10-16] MEDS: QUEtiapine FUMARATE 400 MG TABLET PO SCH (22:01)
[2022-10-16] MEDS: ATORVASTATIN CA 80 MG TABLET (FP) PO SCH (22:01)
[2022-10-16] MEDS: ACETAMINOPHEN 325 MG TABLET (FP) PO PRN (22:03)
[2022-10-16] MEDS: guaiFENesin 200 MG/10 ML 10 ML UNIT-DOSE CUPS PO PRN (22:05)
[2022-10-17] MEDS: metFORMIN HCL 500 MG TABLET (FP) PO SCH ×2 (07:04→16:49)
[2022-10-17] MEDS: ACETAMINOPHEN 325 MG TABLET (FP) PO PRN ×2 (07:15→20:41)
[2022-10-17] MEDS: COLCHICINE 0.6 MG CAP PO SCH (10:15)
[2022-10-17] MEDS: ASPIRIN 81 MG CHEWABLE TABLETS PO SCH (10:15)
[2022-10-17] MEDS: METOPROLOL TARTRATE 50 MG TABLET (FP) PO SCH ×2 (10:15→21:23)
[2022-10-17] MEDS: PRENATAL VITAMINS W/ FOLIC ACID TABLET (FP) PO SCH (10:16)
[2022-10-17] MEDS: NICOTINE 10 MG CARTRIDGE (INHALER) IH PRN (10:16)
[2022-10-17] MEDS: ALLOPURINOL 100 MG TABLET (FP) PO SCH ×2 (10:16→21:23)
[2022-10-17] MEDS: NICOTINE 21 MG/24 HOURS TOPICAL PATCH TD SCH (10:16)
[2022-10-17] MEDS: SERTRALINE HCL 50 MG TABLET (FP) PO SCH (10:16)
[2022-10-17] MEDS: FAMOTIDINE 20 MG TABLET PO SCH (10:16)
[2022-10-17 10:44] LABS: HEMATOCRIT 36.6 % (35.4-49); HEMOGLOBIN 12.3 GM/dL (11.7-16.9); MCH 30.3 pg (25.7-33.7); MCHC 33.6 g/dl (32.0-35.9); MEAN CELL VOLUME 90.4 fl (80-96); MEAN PLT VOLUME 9.7 fl (7.5-11.1); PLATELET COUNT 148 10^3/uL (134-434); RBC 4.05 M/mm3 (4.00-5.60); RDW 15.3 % (11.9-15.9); WHITE BLOOD COUNT 4.3 K/mm3 (4.0-10.0)
[2022-10-17 11:26] LABS: CALCIUM 8.9 mg/dL (8.5-10.1)
[2022-10-17 11:27] LABS: ALBUMIN 3.1 g/dl (3.4-5.0); BLOOD UREA NITROGEN 20.5 mg/dL (7-18)
[2022-10-17 11:30] LABS: CREATININE 1.1 mg/dL (0.55-1.3)
[2022-10-17 11:31] LABS: BILIRUBIN,TOTAL 0.2 mg/dL (0.2-1); TOT PROT 6.2 g/dl (6.4-8.2)
[2022-10-17 11:49] LABS: SYPHILIS W/ RPR CONF NON-REACTIVE (NONREACTIVE)
[2022-10-17] MEDS: BENZOCAINE/MENTHOL (CHLORASEPTIC ) LOZENGE MM PRN (16:51)
[2022-10-17] MEDS ORDERED: ATORVASTATIN CA 40 MG TABLET (FP) ONE (18:40)
[2022-10-17] MEDS: THIAMINE HCL 100 MG TABLET (FP) PO SCH (21:23)
[2022-10-17] MEDS: traZODone HCL 50 MG TABLET (FP) PO SCH (21:23)
[2022-10-17] MEDS: ATORVASTATIN CA 80 MG TABLET (FP) PO SCH (21:23)
[2022-10-17] MEDS: QUEtiapine FUMARATE 400 MG TABLET PO SCH (21:23)
[2022-10-17] MEDS: guaiFENesin 200 MG/10 ML 10 ML UNIT-DOSE CUPS PO PRN (21:25)
[2022-10-18] MEDS: metFORMIN HCL 500 MG TABLET (FP) PO SCH ×2 (06:38→16:46)
[2022-10-18] MEDS: ACETAMINOPHEN 325 MG TABLET (FP) PO PRN (06:38)
[2022-10-18] MEDS: BENZOCAINE/MENTHOL (CHLORASEPTIC ) LOZENGE MM PRN ×2 (06:40→21:20)
[2022-10-18] MEDS: METOPROLOL TARTRATE 50 MG TABLET (FP) PO SCH ×2 (10:07→21:18)
[2022-10-18] MEDS: PRENATAL VITAMINS W/ FOLIC ACID TABLET (FP) PO SCH (10:07)
[2022-10-18] MEDS: SERTRALINE HCL 50 MG TABLET (FP) PO SCH (10:07)
[2022-10-18] MEDS: COLCHICINE 0.6 MG CAP PO SCH (10:08)
[2022-10-18] MEDS: FAMOTIDINE 20 MG TABLET PO SCH (10:08)
[2022-10-18] MEDS: ASPIRIN 81 MG CHEWABLE TABLETS PO SCH (10:08)
[2022-10-18] MEDS: NICOTINE 21 MG/24 HOURS TOPICAL PATCH TD SCH (10:09)
[2022-10-18] MEDS: NICOTINE 10 MG CARTRIDGE (INHALER) IH PRN (10:10)
[2022-10-18] MEDS: ALLOPURINOL 100 MG TABLET (FP) PO SCH ×2 (10:37→21:18)
[2022-10-18 15:32] LABS: EPI CELLS 7 /uL (0-25.1); HYALINE CASTS 0 /uL (0-3.1); PH,URINE 6.5 (5.0-8.0); URINE APPEARANCE CLEAR; URINE BACTERIA 35 /uL (0-1359); URINE BILIRUBIN NEGATIVE (NEGATIVE); URINE COLOR YELLOW; URINE GLUCOSE (UA) NEGATIVE (NEGATIVE); URINE KETONE NEGATIVE (NEGATIVE); URINE LEUK ESTERASE TRACE (NEGATIVE); URINE NITRITE NEGATIVE (NEGATIVE); URINE PROTEIN NEGATIVE (NEGATIVE); URINE RBC 4 /uL (0-23.9); URINE UROBILINOGEN 0.2 mg/dL (0.2-1.0); URINE WBC 5 /uL (0-25.8)
[2022-10-18] MEDS ORDERED: ATORVASTATIN CA 40 MG TABLET (FP) ONE (19:03)
[2022-10-18] MEDS: traZODone HCL 50 MG TABLET (FP) PO SCH (21:18)
[2022-10-18] MEDS: QUEtiapine FUMARATE 400 MG TABLET PO SCH (21:18)
[2022-10-18] MEDS: THIAMINE HCL 100 MG TABLET (FP) PO SCH (21:18)
[2022-10-18] MEDS: ATORVASTATIN CA 80 MG TABLET (FP) PO SCH (21:19)
[2022-10-19] MEDS: metFORMIN HCL 500 MG TABLET (FP) PO SCH ×2 (06:25→17:00)
[2022-10-19] MEDS: PRENATAL VITAMINS W/ FOLIC ACID TABLET (FP) PO SCH (10:05)
[2022-10-19] MEDS: METOPROLOL TARTRATE 50 MG TABLET (FP) PO SCH ×2 (10:06→21:22)
[2022-10-19] MEDS: FAMOTIDINE 20 MG TABLET PO SCH (10:06)
[2022-10-19] MEDS: NICOTINE 21 MG/24 HOURS TOPICAL PATCH TD SCH (10:06)
[2022-10-19] MEDS: ASPIRIN 81 MG CHEWABLE TABLETS PO SCH (10:06)
[2022-10-19] MEDS: SERTRALINE HCL 50 MG TABLET (FP) PO SCH (10:06)
[2022-10-19] MEDS: ALLOPURINOL 100 MG TABLET (FP) PO SCH ×2 (10:07→21:24)
[2022-10-19] MEDS: COLCHICINE 0.6 MG CAP PO SCH (10:08)
[2022-10-19] MEDS: BENZOCAINE/MENTHOL (CHLORASEPTIC ) LOZENGE MM PRN (10:09)
[2022-10-19] MEDS: ACETAMINOPHEN 325 MG TABLET (FP) PO PRN (10:09)
[2022-10-19] MEDS ORDERED: ATORVASTATIN CA 40 MG TABLET (FP) ONE (19:07)
[2022-10-19] MEDS: THIAMINE HCL 100 MG TABLET (FP) PO SCH (21:22)
[2022-10-19] MEDS: traZODone HCL 50 MG TABLET (FP) PO SCH (21:22)
[2022-10-19] MEDS: ATORVASTATIN CA 80 MG TABLET (FP) PO SCH (21:23)
[2022-10-19] MEDS: QUEtiapine FUMARATE 400 MG TABLET PO SCH (21:24)
[2022-10-20] MEDS: metFORMIN HCL 500 MG TABLET (FP) PO SCH ×2 (06:49→16:50)
[2022-10-20] MEDS: PRENATAL VITAMINS W/ FOLIC ACID TABLET (FP) PO SCH (10:22)
[2022-10-20] MEDS: METOPROLOL TARTRATE 50 MG TABLET (FP) PO SCH ×2 (10:23→21:25)
[2022-10-20] MEDS: FAMOTIDINE 20 MG TABLET PO SCH (10:23)
[2022-10-20] MEDS: SERTRALINE HCL 50 MG TABLET (FP) PO SCH (10:23)
[2022-10-20] MEDS: ALLOPURINOL 100 MG TABLET (FP) PO SCH ×2 (10:23→21:25)
[2022-10-20] MEDS: ASPIRIN 81 MG CHEWABLE TABLETS PO SCH (10:23)
[2022-10-20] MEDS: COLCHICINE 0.6 MG CAP PO SCH (10:25)
[2022-10-20] MEDS: NICOTINE 21 MG/24 HOURS TOPICAL PATCH TD SCH (10:26)
[2022-10-20] MEDS ORDERED: ATORVASTATIN CA 40 MG TABLET (FP) ONE (18:40)
[2022-10-20] MEDS: QUEtiapine FUMARATE 400 MG TABLET PO SCH (21:25)
[2022-10-20] MEDS: traZODone HCL 50 MG TABLET (FP) PO SCH (21:25)
[2022-10-20] MEDS: ATORVASTATIN CA 80 MG TABLET (FP) PO SCH (21:26)
[2022-10-20] MEDS: ACETAMINOPHEN 325 MG TABLET (FP) PO PRN (21:26)
[2022-10-20] MEDS: THIAMINE HCL 100 MG TABLET (FP) PO SCH (21:26)
[2022-10-20] MEDS: NICOTINE 10 MG CARTRIDGE (INHALER) IH PRN (21:27)
[2022-10-20] MEDS: BENZOCAINE/MENTHOL (CHLORASEPTIC ) LOZENGE MM PRN (21:27)
[2022-10-21] MEDS: metFORMIN HCL 500 MG TABLET (FP) PO SCH ×2 (06:00→17:03)
[2022-10-21] MEDS: FAMOTIDINE 20 MG TABLET PO SCH (10:27)
[2022-10-21] MEDS: METOPROLOL TARTRATE 50 MG TABLET (FP) PO SCH ×2 (10:27→21:25)
[2022-10-21] MEDS: PRENATAL VITAMINS W/ FOLIC ACID TABLET (FP) PO SCH (10:28)
[2022-10-21] MEDS: COLCHICINE 0.6 MG CAP PO SCH (10:28)
[2022-10-21] MEDS: ALLOPURINOL 100 MG TABLET (FP) PO SCH ×2 (10:28→21:41)
[2022-10-21] MEDS: SERTRALINE HCL 50 MG TABLET (FP) PO SCH (10:28)
[2022-10-21] MEDS: NICOTINE 21 MG/24 HOURS TOPICAL PATCH TD SCH (10:28)
[2022-10-21] MEDS: ASPIRIN 81 MG CHEWABLE TABLETS PO SCH (10:28)
[2022-10-21] MEDS: NICOTINE 10 MG CARTRIDGE (INHALER) IH PRN (10:29)
[2022-10-21] MEDS ORDERED: ATORVASTATIN CA 40 MG TABLET (FP) ONE (18:44)
[2022-10-21] MEDS: traZODone HCL 50 MG TABLET (FP) PO SCH (21:26)
[2022-10-21] MEDS: QUEtiapine FUMARATE 400 MG TABLET PO SCH (21:26)
[2022-10-21] MEDS: THIAMINE HCL 100 MG TABLET (FP) PO SCH (21:26)
[2022-10-21] MEDS: ACETAMINOPHEN 325 MG TABLET (FP) PO PRN (21:26)
[2022-10-21] MEDS: ATORVASTATIN CA 80 MG TABLET (FP) PO SCH (21:26)
[2022-10-21] MEDS: BENZOCAINE/MENTHOL (CHLORASEPTIC ) LOZENGE MM PRN (21:28)
[2022-10-22] MEDS: metFORMIN HCL 500 MG TABLET (FP) PO SCH (06:24)
[2022-10-22] MEDS: ACETAMINOPHEN 325 MG TABLET (FP) PO PRN (06:25)
[2022-10-22 07:12] VITALS: BP 124/79; PULSE 93; TEMP 97.5
[2022-10-22] MEDS: ALLOPURINOL 100 MG TABLET (FP) PO SCH (10:14)
[2022-10-22] MEDS: SERTRALINE HCL 50 MG TABLET (FP) PO SCH (10:14)
[2022-10-22] MEDS: COLCHICINE 0.6 MG CAP PO SCH (10:14)
[2022-10-22] MEDS: METOPROLOL TARTRATE 50 MG TABLET (FP) PO SCH (10:14)
[2022-10-22] MEDS: FAMOTIDINE 20 MG TABLET PO SCH (10:14)
[2022-10-22] MEDS: ASPIRIN 81 MG CHEWABLE TABLETS PO SCH (10:15)
[2022-10-22] MEDS: NICOTINE 21 MG/24 HOURS TOPICAL PATCH TD SCH (10:15)
[2022-10-22] MEDS: PRENATAL VITAMINS W/ FOLIC ACID TABLET (FP) PO SCH (10:15)
[2022-10-22] MEDS: NICOTINE 10 MG CARTRIDGE (INHALER) IH PRN (10:15)
== END 2022-10-22 13:10 | disposition home or self-care (01) | DRG 772 ==
LOC: YASAS 08:53 → Y3W 10:19
PROVIDERS: ADMIT Allergy & Immunology; ATTEND Psychiatry & Neurology Pain Medicine
PROC: HZ42ZZZ Group Counseling for Substance Abuse Treatment, Cognitive-Behavioral (ICD-10-PCS; principal; 2022-10-16)
DX: F10.20 Alcohol dependence, uncomplicated (principal); F17.210 Nicotine dependence, cigarettes, uncomplicated; F10.282 Alcohol dependence with alcohol-induced sleep disorder; F25.1 Schizoaffective disorder, depressive type; G47.30 Sleep apnea, unspecified; I10 Essential (primary) hypertension; K21.9 Gastro-esophageal reflux disease without esophagitis; E11.9 Type 2 diabetes mellitus without complications; Z79.84 Long term (current) use of oral hypoglycemic drugs; M1A.261 Drug-induced chronic gout, right knee; E66.9 Obesity, unspecified; Z68.37 Body mass index [BMI] 37.0-37.9, adult
CPT/HCPCS: 36415; 80053; 80061; 81003; 82140; 82962; 85027; 86780; 86803; 87811; 93005; 93010; C9803-CS; U0003; U0005

== ENCOUNTER 2022-11-16 15:15 | Inpatient (IN) | payer OTHER ==
[2022-11-16 16:29] VITALS: BMI 39.1
[2022-11-16] MEDS ORDERED: DICYCLOMINE HCL 10 MG CAPSULE PO PRN (19:54)
[2022-11-16] MEDS ORDERED: MELATONIN 5 MG TABLETS PO PRN (19:54)
[2022-11-16] MEDS ORDERED: MAGNESIUM HYDROX 2400MG/30ML ORAL SUSPENSION 30 ML CUP PO PRN (19:54)
[2022-11-16] MEDS ORDERED: BISMUTH SUBSALICYLATE 524 MG/30 ML PO PRN (19:54)
[2022-11-16] MEDS ORDERED: MAG HYDROX/AL HYDROX/SIMETH 30 ML UNIT-DOSE CUP PO PRN (19:54)
[2022-11-16] MEDS ORDERED: NICOTINE POLACRILEX 2 MG GUM BUC PRN (19:54)
[2022-11-16] MEDS ORDERED: POLYETHYLENE GLYCOL (HEALTHYLAX) 3350 17 GM PACKET PO PRN (19:54)
[2022-11-16] MEDS ORDERED: ONDANSETRON *ODT* 4 MG TABLET SL PRN (19:54)
[2022-11-16] MEDS ORDERED: BENZOCAINE/MENTHOL (CHLORASEPTIC ) LOZENGE MM PRN (19:54)
[2022-11-16] MEDS ORDERED: P-EPHED 60MG/TRIPROLIDI 2.5MG TABLET PO PRN (19:54)
[2022-11-16] MEDS ORDERED: ACETAMINOPHEN 325 MG TABLET (FP) PO PRN ×2 (19:54)
[2022-11-16] MEDS ORDERED: LOPERAMIDE HCL 2 MG CAPSULE PO PRN (19:54)
[2022-11-16] MEDS ORDERED: diazePAM 5 MG TABLET PO PRN (19:58)
[2022-11-16] MEDS: METOPROLOL TARTRATE 50 MG TABLET (FP) PO SCH (22:04)
[2022-11-16] MEDS: ATORVASTATIN CA 80 MG TABLET (FP) PO SCH (22:04)
[2022-11-16] MEDS: THIAMINE HCL 100 MG TABLET (FP) PO SCH (22:05)
[2022-11-16] MEDS: FAMOTIDINE 20 MG TABLET PO SCH (22:05)
[2022-11-16] MEDS: ASPIRIN 81 MG CHEWABLE TABLETS PO SCH (22:05)
[2022-11-16] MEDS: INSULIN SLIDING SCALE (NOVOLOG) 1 VIAL SQ SCH (22:06)
[2022-11-16] MEDS: IBUPROFEN 400 MG TABLET (FP) PO PRN (22:08)
[2022-11-16] MEDS: guaiFENesin 200 MG/10 ML 10 ML UNIT-DOSE CUPS PO PRN (22:11)
[2022-11-16] MEDS: ALLOPURINOL 100 MG TABLET (FP) PO SCH (23:37)
[2022-11-17] MEDS: metFORMIN HCL 500 MG TABLET (FP) PO SCH ×2 (06:30→16:59)
[2022-11-17] MEDS: INSULIN SLIDING SCALE (NOVOLOG) 1 VIAL SQ SCH ×4 (06:44→22:38)
[2022-11-17] MEDS: ALLOPURINOL 100 MG TABLET (FP) PO SCH ×2 (09:51→22:33)
[2022-11-17] MEDS: ASPIRIN 81 MG CHEWABLE TABLETS PO SCH (09:51)
[2022-11-17] MEDS: COLCHICINE 0.6 MG CAP PO SCH (09:51)
[2022-11-17] MEDS: METOPROLOL TARTRATE 50 MG TABLET (FP) PO SCH ×2 (09:51→22:33)
[2022-11-17] MEDS: FAMOTIDINE 20 MG TABLET PO SCH (09:51)
[2022-11-17] MEDS: PRENATAL VITAMINS W/ FOLIC ACID TABLET (FP) PO SCH (09:51)
[2022-11-17] MEDS: diazePAM 5 MG TABLET PO SCH ×3 (10:36→22:33)
[2022-11-17] MEDS: guaiFENesin 200 MG/10 ML 10 ML UNIT-DOSE CUPS PO PRN ×2 (10:40→22:36)
[2022-11-17] MEDS: IBUPROFEN 400 MG TABLET (FP) PO PRN ×2 (10:41→22:34)
[2022-11-17 10:59] LABS: BLOOD UREA NITROGEN 16.5 mg/dL (7-18); CALCIUM 8.6 mg/dL (8.5-10.1)
[2022-11-17 11:00] LABS: ALBUMIN 3.1 g/dl (3.4-5.0)
[2022-11-17 11:03] LABS: CREATININE 0.9 mg/dL (0.55-1.3)
[2022-11-17 11:04] LABS: BILIRUBIN,TOTAL 0.3 mg/dL (0.2-1); TOT PROT 6.7 g/dl (6.4-8.2)
[2022-11-17 11:10] LABS: HEMATOCRIT 35.6 % (35.4-49); MCH 30.8 pg (25.7-33.7); MCHC 33.7 g/dl (32.0-35.9); MEAN CELL VOLUME 91.4 fl (80-96); MEAN PLT VOLUME 10.3 fl (7.5-11.1); PLATELET COUNT 161 10^3/uL (134-434); RDW 16.1 % (11.9-15.9); WHITE BLOOD COUNT 5.1 K/mm3 (4.0-10.0)
[2022-11-17] MEDS: SERTRALINE HCL 50 MG TABLET (FP) PO SCH (12:23)
[2022-11-17] MEDS: LISINOPRIL 10 MG TABLET PO SCH (14:26)
[2022-11-17] MEDS ORDERED: INSULIN (NOVOLOG) ASPART 100 UNITS/ML 10ML VIAL ONE (17:16)
[2022-11-17] MEDS: QUEtiapine FUMARATE 400 MG TABLET PO SCH (22:32)
[2022-11-17] MEDS: THIAMINE HCL 100 MG TABLET (FP) PO SCH (22:32)
[2022-11-17] MEDS: ATORVASTATIN CA 80 MG TABLET (FP) PO SCH (22:33)
[2022-11-18] MEDS: diazePAM 5 MG TABLET PO SCH ×5 (06:17→23:11)
[2022-11-18] MEDS: metFORMIN HCL 500 MG TABLET (FP) PO SCH ×3 (06:17→18:16)
[2022-11-18] MEDS: INSULIN SLIDING SCALE (NOVOLOG) 1 VIAL SQ SCH ×5 (06:38→22:17)
[2022-11-18] MEDS: ASPIRIN 81 MG CHEWABLE TABLETS PO SCH (09:27)
[2022-11-18] MEDS: METOPROLOL TARTRATE 50 MG TABLET (FP) PO SCH ×2 (09:28→22:15)
[2022-11-18] MEDS: COLCHICINE 0.6 MG CAP PO SCH (09:28)
[2022-11-18] MEDS: LISINOPRIL 10 MG TABLET PO SCH (09:29)
[2022-11-18] MEDS: PRENATAL VITAMINS W/ FOLIC ACID TABLET (FP) PO SCH (09:29)
[2022-11-18] MEDS: ALLOPURINOL 100 MG TABLET (FP) PO SCH ×2 (09:29→22:15)
[2022-11-18] MEDS: FAMOTIDINE 20 MG TABLET PO SCH (09:29)
[2022-11-18] MEDS: SERTRALINE HCL 50 MG TABLET (FP) PO SCH (09:29)
[2022-11-18] MEDS: IBUPROFEN 400 MG TABLET (FP) PO PRN ×2 (09:36→18:20)
[2022-11-18] MEDS: guaiFENesin 200 MG/10 ML 10 ML UNIT-DOSE CUPS PO PRN ×2 (09:36→18:22)
[2022-11-18] MEDS ORDERED: ARTIFICIAL TEARS (POLYVINYL ALCOHOL) OPTH DROPS OU PRN (10:49)
[2022-11-18] MEDS: THIAMINE HCL 100 MG TABLET (FP) PO SCH (22:15)
[2022-11-18] MEDS: QUEtiapine FUMARATE 400 MG TABLET PO SCH (22:16)
[2022-11-18] MEDS: ATORVASTATIN CA 80 MG TABLET (FP) PO SCH (22:16)
[2022-11-19] MEDS: diazePAM 5 MG TABLET PO SCH ×3 (06:25→22:09)
[2022-11-19] MEDS: metFORMIN HCL 500 MG TABLET (FP) PO SCH ×2 (06:25→17:03)
[2022-11-19] MEDS: INSULIN SLIDING SCALE (NOVOLOG) 1 VIAL SQ SCH ×4 (06:35→22:10)
[2022-11-19] MEDS: IBUPROFEN 400 MG TABLET (FP) PO PRN ×2 (06:36→17:03)
[2022-11-19] MEDS: METOPROLOL TARTRATE 50 MG TABLET (FP) PO SCH ×2 (10:37→22:05)
[2022-11-19] MEDS: PRENATAL VITAMINS W/ FOLIC ACID TABLET (FP) PO SCH (10:37)
[2022-11-19] MEDS: LISINOPRIL 10 MG TABLET PO SCH (10:38)
[2022-11-19] MEDS: COLCHICINE 0.6 MG CAP PO SCH (10:38)
[2022-11-19] MEDS: ALLOPURINOL 100 MG TABLET (FP) PO SCH ×2 (10:38→22:06)
[2022-11-19] MEDS: SERTRALINE HCL 50 MG TABLET (FP) PO SCH (10:38)
[2022-11-19] MEDS: FAMOTIDINE 20 MG TABLET PO SCH (10:40)
[2022-11-19] MEDS: ASPIRIN 81 MG CHEWABLE TABLETS PO SCH (10:41)
[2022-11-19] MEDS: NICOTINE 10 MG CARTRIDGE (INHALER) IH PRN (17:03)
[2022-11-19] MEDS: guaiFENesin 200 MG/10 ML 10 ML UNIT-DOSE CUPS PO PRN (22:05)
[2022-11-19] MEDS: ATORVASTATIN CA 80 MG TABLET (FP) PO SCH (22:05)
[2022-11-19] MEDS: QUEtiapine FUMARATE 400 MG TABLET PO SCH (22:06)
[2022-11-19] MEDS: THIAMINE HCL 100 MG TABLET (FP) PO SCH (22:06)
[2022-11-20] MEDS: diazePAM 5 MG TABLET PO SCH ×2 (06:05→18:08)
[2022-11-20] MEDS: metFORMIN HCL 500 MG TABLET (FP) PO SCH ×2 (06:41→17:09)
[2022-11-20] MEDS: INSULIN SLIDING SCALE (NOVOLOG) 1 VIAL SQ SCH ×4 (07:44→22:05)
[2022-11-20] MEDS: COLCHICINE 0.6 MG CAP PO SCH (10:46)
[2022-11-20] MEDS: ALLOPURINOL 100 MG TABLET (FP) PO SCH ×2 (10:46→22:06)
[2022-11-20] MEDS: PRENATAL VITAMINS W/ FOLIC ACID TABLET (FP) PO SCH (10:46)
[2022-11-20] MEDS: SERTRALINE HCL 50 MG TABLET (FP) PO SCH (10:46)
[2022-11-20] MEDS: FAMOTIDINE 20 MG TABLET PO SCH (10:47)
[2022-11-20] MEDS: ASPIRIN 81 MG CHEWABLE TABLETS PO SCH (10:47)
[2022-11-20] MEDS: METOPROLOL TARTRATE 50 MG TABLET (FP) PO SCH ×2 (10:47→22:05)
[2022-11-20] MEDS: LISINOPRIL 10 MG TABLET PO SCH (10:47)
[2022-11-20] MEDS: NICOTINE 10 MG CARTRIDGE (INHALER) IH PRN (12:32)
[2022-11-20] MEDS: THIAMINE HCL 100 MG TABLET (FP) PO SCH (22:04)
[2022-11-20] MEDS: guaiFENesin 200 MG/10 ML 10 ML UNIT-DOSE CUPS PO PRN (22:04)
[2022-11-20] MEDS: QUEtiapine FUMARATE 400 MG TABLET PO SCH (22:05)
[2022-11-20] MEDS: ATORVASTATIN CA 80 MG TABLET (FP) PO SCH (22:05)
[2022-11-20] MEDS: IBUPROFEN 400 MG TABLET (FP) PO PRN (22:08)
[2022-11-21] MEDS ORDERED: diazePAM 5 MG TABLET PO ONE (06:00)
[2022-11-21] MEDS: metFORMIN HCL 500 MG TABLET (FP) PO SCH (06:21)
[2022-11-21 07:19] VITALS: RESP 18
[2022-11-21] MEDS: INSULIN SLIDING SCALE (NOVOLOG) 1 VIAL SQ SCH (07:22)
[2022-11-21] MEDS: FAMOTIDINE 20 MG TABLET PO SCH (09:57)
[2022-11-21] MEDS: PRENATAL VITAMINS W/ FOLIC ACID TABLET (FP) PO SCH (09:57)
[2022-11-21] MEDS: ALLOPURINOL 100 MG TABLET (FP) PO SCH (09:57)
[2022-11-21] MEDS: COLCHICINE 0.6 MG CAP PO SCH (09:57)
[2022-11-21] MEDS: METOPROLOL TARTRATE 50 MG TABLET (FP) PO SCH (09:57)
[2022-11-21] MEDS: SERTRALINE HCL 50 MG TABLET (FP) PO SCH (09:58)
[2022-11-21] MEDS: LISINOPRIL 10 MG TABLET PO SCH (09:58)
[2022-11-21] MEDS: ASPIRIN 81 MG CHEWABLE TABLETS PO SCH (09:58)
[2022-11-21 10:02] VITALS: BP 128/82; PULSE 82; TEMP 98.2
== END 2022-11-21 10:29 | disposition home or self-care (01) | DRG 775 ==
LOC: YASAS 15:15 → Y6N 20:32
PROVIDERS: ADMIT Allergy & Immunology; ATTEND Surgery
PROC: HZ2ZZZZ Detoxification Services for Substance Abuse Treatment (ICD-10-PCS; principal; 2022-11-16)
DX: F10.230 Alcohol dependence with withdrawal, uncomplicated (principal); F17.210 Nicotine dependence, cigarettes, uncomplicated; F20.9 Schizophrenia, unspecified; F10.282 Alcohol dependence with alcohol-induced sleep disorder; E78.5 Hyperlipidemia, unspecified; I10 Essential (primary) hypertension; K21.9 Gastro-esophageal reflux disease without esophagitis; K43.9 Ventral hernia without obstruction or gangrene; G47.30 Sleep apnea, unspecified; M1A.261 Drug-induced chronic gout, right knee; E11.9 Type 2 diabetes mellitus without complications; E66.9 Obesity, unspecified; Z68.39 Body mass index [BMI] 39.0-39.9, adult; Z87.11 Personal history of peptic ulcer disease; Z88.7 Allergy status to serum and vaccine
CPT/HCPCS: 36415; 80053; 82962; 85027; 86780; C9803-CS; U0003; U0005

== ENCOUNTER 2023-01-01 09:37 | Inpatient (IN) | payer OTHER ==
[2023-01-01 10:15] VITALS: BMI 42.5
[2023-01-01] MEDS ORDERED: ONDANSETRON *ODT* 4 MG TABLET SL PRN (10:53)
[2023-01-01] MEDS ORDERED: POLYETHYLENE GLYCOL (HEALTHYLAX) 3350 17 GM PACKET PO PRN (10:53)
[2023-01-01] MEDS ORDERED: DICYCLOMINE HCL 10 MG CAPSULE PO PRN (10:53)
[2023-01-01] MEDS ORDERED: guaiFENesin 600 MG TABLET.ER (FP) PO PRN (10:53)
[2023-01-01] MEDS ORDERED: NICOTINE POLACRILEX 2 MG GUM BUC PRN (10:53)
[2023-01-01] MEDS ORDERED: ACETAMINOPHEN 325 MG TABLET (FP) PO PRN (10:53)
[2023-01-01] MEDS ORDERED: NICOTINE 7 MG/24 HOURS TOPICAL PATCH TD PRN (10:53)
[2023-01-01] MEDS ORDERED: BISMUTH SUBSALICYLATE 262 MG/15 ML BTL PO PRN (10:53)
[2023-01-01] MEDS ORDERED: MAGNESIUM HYDROX 2400MG/30ML ORAL SUSPENSION 30 ML CUP PO PRN (10:53)
[2023-01-01] MEDS ORDERED: BENZOCAINE/MENTHOL (CHLORASEPTIC ) LOZENGE MM PRN (10:53)
[2023-01-01] MEDS ORDERED: MAG HYDROX/AL HYDROX/SIMETH 30 ML UNIT-DOSE CUP PO PRN (10:53)
[2023-01-01] MEDS ORDERED: BENZONATATE 200 MG CAPSULE PO PRN (10:53)
[2023-01-01] MEDS ORDERED: LOPERAMIDE HCL 2 MG CAPSULE PO PRN (10:53)
[2023-01-01] MEDS ORDERED: chlordiazePOXIDE HCL 25 MG CAPSULE PO PRN (11:08)
[2023-01-01] MEDS: VITAMINS A AND D TOPICAL OINTMENT 60 GM TUBE TP SCH ×3 (12:20→23:03)
[2023-01-01] MEDS ORDERED: COLCHICINE 0.6 MG CAPSULE PO SCH (12:30)
[2023-01-01] MEDS: ASPIRIN 81 MG CHEWABLE TABLETS PO SCH (12:55)
[2023-01-01] MEDS: COLCHICINE 0.6 MG CAPSULE PO SCH (12:55)
[2023-01-01 14:32] LABS: HEMATOCRIT 35.5 % (35.4-49); HEMOGLOBIN 12.1 GM/dL (11.7-16.9); MCH 30.5 pg (25.7-33.7); MCHC 34.2 g/dl (32.0-35.9); MEAN CELL VOLUME 89.4 fl (80-96); MEAN PLT VOLUME 11.2 fl (7.5-11.1); PLATELET COUNT 127 10^3/uL (134-434); RBC 3.97 M/mm3 (4.00-5.60); RDW 14.9 % (11.9-15.9); WHITE BLOOD COUNT 4.1 K/mm3 (4.0-10.0)
[2023-01-01 14:36] LABS: CALCIUM 8.9 mg/dL (8.5-10.1)
[2023-01-01 14:37] LABS: ALBUMIN 3.3 g/dl (3.4-5.0); BLOOD UREA NITROGEN 17.7 mg/dL (7-18)
[2023-01-01 14:40] LABS: CREATININE 1.3 mg/dL (0.55-1.3)
[2023-01-01 14:42] LABS: BILIRUBIN,TOTAL 0.5 mg/dL (0.2-1); TOT PROT 6.8 g/dl (6.4-8.2)
[2023-01-01] MEDS ORDERED: metFORMIN HCL 500 MG TABLET (FP) PO SCH (16:30)
[2023-01-01] MEDS: IBUPROFEN 400 MG TABLET (FP) PO PRN (17:18)
[2023-01-01] MEDS: metFORMIN HCL 500 MG TABLET (FP) PO SCH (17:19)
[2023-01-01] MEDS: chlordiazePOXIDE HCL 25 MG CAPSULE PO SCH ×2 (17:20→22:36)
[2023-01-01] MEDS: INSULIN SLIDING SCALE (NOVOLOG) 1 VIAL SQ SCH ×2 (17:23→22:38)
[2023-01-01] MEDS: MELATONIN 5 MG TABLETS PO SCH (22:34)
[2023-01-01] MEDS: QUEtiapine FUMARATE 200 MG TABLET PO SCH (22:34)
[2023-01-01] MEDS: THIAMINE HCL 100 MG TABLET (FP) PO SCH (22:34)
[2023-01-01] MEDS: ALLOPURINOL 100 MG TABLET (FP) PO SCH (22:35)
[2023-01-01] MEDS: FAMOTIDINE 20 MG TABLET PO SCH (22:35)
[2023-01-02] MEDS: chlordiazePOXIDE HCL 25 MG CAPSULE PO SCH ×4 (06:13→22:24)
[2023-01-02] MEDS: VITAMINS A AND D TOPICAL OINTMENT 60 GM TUBE TP SCH ×4 (06:13→22:25)
[2023-01-02] MEDS: metFORMIN HCL 500 MG TABLET (FP) PO SCH ×2 (06:13→17:52)
[2023-01-02] MEDS: INSULIN SLIDING SCALE (NOVOLOG) 1 VIAL SQ SCH ×4 (06:14→22:30)
[2023-01-02] MEDS ORDERED: COLCHICINE 0.6 MG CAP PO SCH (10:00)
[2023-01-02] MEDS ORDERED: ASPIRIN 81 MG CHEWABLE TABLETS PO SCH ×2 (10:00)
[2023-01-02] MEDS: PRENATAL VITAMINS W/ FOLIC ACID TABLET (FP) PO SCH (10:39)
[2023-01-02] MEDS: SERTRALINE HCL 50 MG TABLET (FP) PO SCH (10:39)
[2023-01-02] MEDS: FAMOTIDINE 20 MG TABLET PO SCH ×2 (10:39→22:24)
[2023-01-02] MEDS: COLCHICINE 0.6 MG CAPSULE PO SCH (10:40)
[2023-01-02] MEDS: ALLOPURINOL 100 MG TABLET (FP) PO SCH ×2 (10:41→22:24)
[2023-01-02] MEDS: ASPIRIN 81 MG CHEWABLE TABLETS PO SCH (10:43)
[2023-01-02] MEDS: ARTIFICIAL TEARS (POLYVINYL ALCOHOL) OPTH DROPS OU SCH (10:44)
[2023-01-02] MEDS: IBUPROFEN 400 MG TABLET (FP) PO PRN (15:48)
[2023-01-02] MEDS: METHOCARBAMOL 500 MG TABLET PO PRN (17:54)
[2023-01-02] MEDS: MELATONIN 5 MG TABLETS PO SCH (22:24)
[2023-01-02] MEDS: THIAMINE HCL 100 MG TABLET (FP) PO SCH (22:24)
[2023-01-02] MEDS: QUEtiapine FUMARATE 200 MG TABLET PO SCH (22:24)
[2023-01-02] MEDS: IBUPROFEN 600 MG TABLET (FP) PO PRN (22:27)
[2023-01-03] MEDS: chlordiazePOXIDE HCL 25 MG CAPSULE PO SCH ×4 (06:00→22:30)
[2023-01-03] MEDS: VITAMINS A AND D TOPICAL OINTMENT 60 GM TUBE TP SCH ×4 (06:01→22:31)
[2023-01-03] MEDS: metFORMIN HCL 500 MG TABLET (FP) PO SCH ×2 (06:11→17:29)
[2023-01-03] MEDS: INSULIN SLIDING SCALE (NOVOLOG) 1 VIAL SQ SCH ×3 (06:11→17:29)
[2023-01-03] MEDS: ALLOPURINOL 100 MG TABLET (FP) PO SCH ×2 (10:06→22:30)
[2023-01-03] MEDS: ASPIRIN 81 MG CHEWABLE TABLETS PO SCH (10:06)
[2023-01-03] MEDS: FAMOTIDINE 20 MG TABLET PO SCH ×2 (10:06→22:30)
[2023-01-03] MEDS: COLCHICINE 0.6 MG CAPSULE PO SCH (10:06)
[2023-01-03] MEDS: SERTRALINE HCL 50 MG TABLET (FP) PO SCH (10:06)
[2023-01-03] MEDS: ARTIFICIAL TEARS (POLYVINYL ALCOHOL) OPTH DROPS OU SCH (10:07)
[2023-01-03] MEDS: PRENATAL VITAMINS W/ FOLIC ACID TABLET (FP) PO SCH (10:07)
[2023-01-03] MEDS: hydrOXYzine PAMOATE 25 MG CAPSULE (FP) PO PRN (17:41)
[2023-01-03] MEDS: QUEtiapine FUMARATE 200 MG TABLET PO SCH (22:30)
[2023-01-03] MEDS: THIAMINE HCL 100 MG TABLET (FP) PO SCH (22:30)
[2023-01-03] MEDS: MELATONIN 5 MG TABLETS PO SCH (22:30)
[2023-01-03] MEDS: IBUPROFEN 600 MG TABLET (FP) PO PRN (22:31)
[2023-01-03] MEDS: METHOCARBAMOL 500 MG TABLET PO PRN (22:32)
[2023-01-04] MEDS ORDERED: chlordiazePOXIDE HCL 10 MG CAPSULE PO PRN
[2023-01-04] MEDS: chlordiazePOXIDE HCL 10 MG CAPSULE PO SCH ×4 (05:56→22:23)
[2023-01-04] MEDS: METHOCARBAMOL 500 MG TABLET PO PRN (05:58)
[2023-01-04] MEDS: IBUPROFEN 600 MG TABLET (FP) PO PRN (05:58)
[2023-01-04] MEDS: metFORMIN HCL 500 MG TABLET (FP) PO SCH ×2 (06:04→17:16)
[2023-01-04] MEDS: INSULIN SLIDING SCALE (NOVOLOG) 1 VIAL SQ SCH ×2 (06:06→17:16)
[2023-01-04] MEDS: VITAMINS A AND D TOPICAL OINTMENT 60 GM TUBE TP SCH ×4 (06:23→22:23)
[2023-01-04] MEDS: ASPIRIN 81 MG CHEWABLE TABLETS PO SCH (09:45)
[2023-01-04] MEDS: SERTRALINE HCL 50 MG TABLET (FP) PO SCH (09:45)
[2023-01-04] MEDS: FAMOTIDINE 20 MG TABLET PO SCH ×2 (09:46→22:22)
[2023-01-04] MEDS: ALLOPURINOL 100 MG TABLET (FP) PO SCH ×2 (09:46→22:22)
[2023-01-04] MEDS: PRENATAL VITAMINS W/ FOLIC ACID TABLET (FP) PO SCH (09:47)
[2023-01-04] MEDS: ARTIFICIAL TEARS (POLYVINYL ALCOHOL) OPTH DROPS OU SCH (09:47)
[2023-01-04] MEDS: COLCHICINE 0.6 MG CAPSULE PO SCH (09:47)
[2023-01-04 11:19] LABS: CALCIUM 9.2 mg/dL (8.5-10.1)
[2023-01-04 11:20] LABS: BLOOD UREA NITROGEN 16.5 mg/dL (7-18)
[2023-01-04 11:23] LABS: CREATININE 0.9 mg/dL (0.55-1.3)
[2023-01-04] MEDS: hydrOXYzine PAMOATE 25 MG CAPSULE (FP) PO PRN (17:17)
[2023-01-04] MEDS: QUEtiapine FUMARATE 200 MG TABLET PO SCH (22:22)
[2023-01-04] MEDS: THIAMINE HCL 100 MG TABLET (FP) PO SCH (22:22)
[2023-01-04] MEDS: MELATONIN 5 MG TABLETS PO SCH (22:22)
[2023-01-05] MEDS ORDERED: chlordiazePOXIDE HCL 10 MG CAPSULE PO SCH (05:00)
[2023-01-05] MEDS: IBUPROFEN 600 MG TABLET (FP) PO PRN (06:15)
[2023-01-05] MEDS: VITAMINS A AND D TOPICAL OINTMENT 60 GM TUBE TP SCH ×2 (06:15→10:23)
[2023-01-05] MEDS: METHOCARBAMOL 500 MG TABLET PO PRN (06:15)
[2023-01-05] MEDS: metFORMIN HCL 500 MG TABLET (FP) PO SCH (06:16)
[2023-01-05] MEDS: INSULIN SLIDING SCALE (NOVOLOG) 1 VIAL SQ SCH (06:31)
[2023-01-05 09:58] VITALS: BP 143/95; PULSE 81; RESP 16; TEMP 97.6
[2023-01-05] MEDS: ALLOPURINOL 100 MG TABLET (FP) PO SCH (10:10)
[2023-01-05] MEDS: PRENATAL VITAMINS W/ FOLIC ACID TABLET (FP) PO SCH (10:10)
[2023-01-05] MEDS: ARTIFICIAL TEARS (POLYVINYL ALCOHOL) OPTH DROPS OU SCH (10:11)
[2023-01-05] MEDS: FAMOTIDINE 20 MG TABLET PO SCH (10:11)
[2023-01-05] MEDS: ASPIRIN 81 MG CHEWABLE TABLETS PO SCH (10:11)
[2023-01-05] MEDS: SERTRALINE HCL 50 MG TABLET (FP) PO SCH (10:11)
[2023-01-05] MEDS: COLCHICINE 0.6 MG CAPSULE PO SCH (10:11)
[2023-01-06] MEDS ORDERED: chlordiazePOXIDE HCL 10 MG CAPSULE PO ONE (05:00)
== END 2023-01-05 11:30 | disposition other institution (70) | DRG 775 ==
LOC: YASAS 09:37 → Y3N 10:53 → UNDOADMIN 11:33 → Y3N 11:33
PROVIDERS: ADMIT Allergy & Immunology; ATTEND Surgery
PROC: HZ2ZZZZ Detoxification Services for Substance Abuse Treatment (ICD-10-PCS; principal; 2023-01-01)
DX: F10.230 Alcohol dependence with withdrawal, uncomplicated (principal); F17.210 Nicotine dependence, cigarettes, uncomplicated; F20.9 Schizophrenia, unspecified; F32.A Depression, unspecified; E78.5 Hyperlipidemia, unspecified; I10 Essential (primary) hypertension; K21.9 Gastro-esophageal reflux disease without esophagitis; E11.39 Type 2 diabetes mellitus with other diabetic ophthalmic complication; Z79.84 Long term (current) use of oral hypoglycemic drugs; M1A.261 Drug-induced chronic gout, right knee; E66.01 Morbid (severe) obesity due to excess calories; Z68.41 Body mass index [BMI] 40.0-44.9, adult; Z87.11 Personal history of peptic ulcer disease
CPT/HCPCS: 36415; 80048; 80053; 82962; 85027; 86780; 87811; C9803-CS; U0003; U0005

== ENCOUNTER 2023-01-05 11:43 | Inpatient (IN) | payer OTHER ==
[2023-01-05] MEDS ORDERED: hydrOXYzine PAMOATE 25 MG CAPSULE (FP) PO PRN (12:56)
[2023-01-05] MEDS ORDERED: LOPERAMIDE HCL 2 MG CAPSULE PO PRN (12:56)
[2023-01-05] MEDS ORDERED: AMMONIUM LACTATE 12% LOTION 225 GM BOTTLE TP PRN (12:56)
[2023-01-05] MEDS ORDERED: NALOXONE HCL (KLOXXADO) 8 MG SPRAY NS PRN (12:56)
[2023-01-05] MEDS ORDERED: POLYETHYLENE GLYCOL (HEALTHYLAX) 3350 17 GM PACKET PO PRN (12:56)
[2023-01-05] MEDS ORDERED: NALOXONE HCL 0.4 MG/ML VIAL IVPUSH PRN (12:56)
[2023-01-05] MEDS ORDERED: guaiFENesin 600 MG TABLET.ER (FP) PO PRN (12:56)
[2023-01-05] MEDS ORDERED: NICOTINE 10 MG CARTRIDGE (INHALER) IH PRN (12:56)
[2023-01-05] MEDS ORDERED: NICOTINE POLACRILEX 2 MG GUM BUC PRN (12:56)
[2023-01-05] MEDS ORDERED: IBUPROFEN 400 MG TABLET (FP) PO PRN (12:56)
[2023-01-05] MEDS ORDERED: COLLOIDAL OATMEAL 1 BAR EACH TP PRN (12:56)
[2023-01-05] MEDS ORDERED: MAGNESIUM HYDROX 2400MG/30ML ORAL SUSPENSION 30 ML CUP PO PRN (12:56)
[2023-01-05] MEDS ORDERED: BENZONATATE 200 MG CAPSULE PO PRN (12:56)
[2023-01-05] MEDS ORDERED: ACETAMINOPHEN 325 MG TABLET (FP) PO PRN (12:56)
[2023-01-05] MEDS ORDERED: BENZOCAINE/MENTHOL (CHLORASEPTIC ) LOZENGE MM PRN (12:56)
[2023-01-05] MEDS ORDERED: MAG HYDROX/AL HYDROX/SIMETH 30 ML UNIT-DOSE CUP PO PRN (12:56)
[2023-01-05] MEDS ORDERED: IBUPROFEN 600 MG TABLET (FP) PO PRN (12:56)
[2023-01-05 12:59] VITALS: BP 123/72; PULSE 81; RESP 16; TEMP 97.3
[2023-01-05] MEDS ORDERED: INSULIN SLIDING SCALE (NOVOLOG) 1 VIAL SQ SCH (16:30)
[2023-01-05] MEDS ORDERED: metFORMIN HCL 500 MG TABLET (FP) PO SCH (16:30)
[2023-01-05] MEDS ORDERED: THIAMINE HCL 100 MG TABLET (FP) PO SCH (22:00)
[2023-01-05] MEDS ORDERED: MELATONIN 5 MG TABLETS PO SCH (22:00)
[2023-01-05] MEDS ORDERED: ALLOPURINOL 100 MG TABLET (FP) PO SCH (22:00)
[2023-01-05] MEDS ORDERED: FAMOTIDINE 20 MG TABLET PO SCH (22:00)
[2023-01-05] MEDS ORDERED: QUEtiapine FUMARATE 200 MG TABLET PO SCH (22:00)
[2023-01-06] MEDS ORDERED: COLCHICINE 0.6 MG CAPSULE PO SCH (10:00)
[2023-01-06] MEDS ORDERED: SERTRALINE HCL 50 MG TABLET (FP) PO SCH (10:00)
[2023-01-06] MEDS ORDERED: ASPIRIN 81 MG CHEWABLE TABLETS PO SCH (10:00)
[2023-01-06] MEDS ORDERED: PRENATAL VITAMINS W/ FOLIC ACID TABLET (FP) PO SCH (10:00)
== END 2023-01-05 15:23 | disposition left against medical advice (07) | DRG 770 ==
LOC: YASAS 11:43 → Y3W 11:45
PROVIDERS: ADMIT Allergy & Immunology; ATTEND Allergy & Immunology
PROC: HZ42ZZZ Group Counseling for Substance Abuse Treatment, Cognitive-Behavioral (ICD-10-PCS; principal; 2023-01-05)
DX: F10.20 Alcohol dependence, uncomplicated (principal); F20.9 Schizophrenia, unspecified; I10 Essential (primary) hypertension; E11.9 Type 2 diabetes mellitus without complications; Z79.84 Long term (current) use of oral hypoglycemic drugs; M10.9 Gout, unspecified; Z88.7 Allergy status to serum and vaccine

== ENCOUNTER 2023-02-16 10:27 | Inpatient (IN) | payer OTHER ==
[2023-02-16 11:09] VITALS: BMI 40.4
[2023-02-16] MEDS ORDERED: NICOTINE 10 MG CARTRIDGE (INHALER) IH PRN (11:58)
[2023-02-16] MEDS ORDERED: BISMUTH SUBSALICYLATE 262 MG/15 ML BTL PO PRN (11:58)
[2023-02-16] MEDS ORDERED: BENZOCAINE/MENTHOL (CHLORASEPTIC ) LOZENGE MM PRN (11:58)
[2023-02-16] MEDS ORDERED: NICOTINE POLACRILEX 2 MG GUM BUC PRN (11:58)
[2023-02-16] MEDS ORDERED: ONDANSETRON *ODT* 4 MG TABLET SL PRN (11:58)
[2023-02-16] MEDS ORDERED: P-EPHED 60MG/TRIPROLIDI 2.5MG TABLET PO PRN (11:58)
[2023-02-16] MEDS ORDERED: NALOXONE HCL 0.4 MG/ML VIAL IM PRN (11:58)
[2023-02-16] MEDS ORDERED: guaiFENesin 600 MG TABLET.ER (FP) PO PRN (11:58)
[2023-02-16] MEDS ORDERED: MAGNESIUM HYDROX 2400MG/30ML ORAL SUSPENSION 30 ML CUP PO PRN (11:58)
[2023-02-16] MEDS ORDERED: LOPERAMIDE HCL 2 MG CAPSULE PO PRN (11:58)
[2023-02-16] MEDS ORDERED: IBUPROFEN 400 MG TABLET (FP) PO PRN (11:58)
[2023-02-16] MEDS ORDERED: POLYETHYLENE GLYCOL (HEALTHYLAX) 3350 17 GM PACKET PO PRN (11:58)
[2023-02-16] MEDS ORDERED: MAG HYDROX/AL HYDROX/SIMETH 30 ML UNIT-DOSE CUP PO PRN (11:58)
[2023-02-16] MEDS ORDERED: DICYCLOMINE HCL 10 MG CAPSULE PO PRN (11:58)
[2023-02-16] MEDS ORDERED: BENZONATATE 200 MG CAPSULE PO PRN (11:58)
[2023-02-16] MEDS ORDERED: NALOXONE HCL (KLOXXADO) 8 MG SPRAY NS PRN (11:58)
[2023-02-16] MEDS ORDERED: ACETAMINOPHEN 325 MG TABLET (FP) PO PRN (11:58)
[2023-02-16] MEDS ORDERED: chlordiazePOXIDE HCL 25 MG CAPSULE PO PRN (12:01)
[2023-02-16] MEDS ORDERED: TETRAHYDROZOLINE HCL EYE DROPS OU PRN (12:01)
[2023-02-16] MEDS ORDERED: ASPIRIN 81 MG CHEWABLE TABLETS ONE (13:14)
[2023-02-16] MEDS: COLCHICINE 0.6 MG CAPSULE PO SCH (13:19)
[2023-02-16] MEDS: ASPIRIN 81 MG CHEWABLE TABLETS PO SCH (13:19)
[2023-02-16] MEDS: ALLOPURINOL 100 MG TABLET (FP) PO SCH ×2 (13:19→22:24)
[2023-02-16] MEDS: FAMOTIDINE 20 MG TABLET PO SCH ×2 (13:19→22:24)
[2023-02-16] MEDS: chlordiazePOXIDE HCL 25 MG CAPSULE PO SCH ×2 (17:32→22:24)
[2023-02-16] MEDS: metFORMIN HCL 500 MG TABLET (FP) PO SCH (17:32)
[2023-02-16] MEDS: THIAMINE HCL 100 MG TABLET (FP) PO SCH (22:24)
[2023-02-16] MEDS: MELATONIN 5 MG TABLETS PO PRN (22:25)
[2023-02-17] MEDS: chlordiazePOXIDE HCL 25 MG CAPSULE PO SCH ×4 (05:31→22:38)
[2023-02-17] MEDS: metFORMIN HCL 500 MG TABLET (FP) PO SCH ×2 (07:05→17:13)
[2023-02-17 09:43] LABS: POTASSIUM 4.5 mmol/L (3.5-5.1)
[2023-02-17 09:47] LABS: CALCIUM 9.4 mg/dL (8.5-10.1)
[2023-02-17 09:49] LABS: BLOOD UREA NITROGEN 17.2 mg/dL (7-18)
[2023-02-17 09:52] LABS: CREATININE 1.3 mg/dL (0.55-1.3)
[2023-02-17 09:53] LABS: BILIRUBIN,TOTAL 0.7 mg/dL (0.2-1); TOT PROT 7.4 g/dl (6.4-8.2)
[2023-02-17 09:57] LABS: HEMATOCRIT 40.7 % (35.4-49); HEMOGLOBIN 13.6 GM/dL (11.7-16.9); MCHC 33.4 g/dl (32.0-35.9); MEAN CELL VOLUME 89.7 fl (80-96); MEAN PLT VOLUME 11.6 fl (7.5-11.1); PLATELET COUNT 119 10^3/uL (134-434); RBC 4.54 M/mm3 (4.00-5.60); RDW 14.8 % (11.9-15.9)
[2023-02-17] MEDS: COLCHICINE 0.6 MG CAPSULE PO SCH (10:24)
[2023-02-17] MEDS: ALLOPURINOL 100 MG TABLET (FP) PO SCH ×2 (10:24→22:37)
[2023-02-17] MEDS: FAMOTIDINE 20 MG TABLET PO SCH ×2 (10:24→22:37)
[2023-02-17] MEDS: ASPIRIN 81 MG CHEWABLE TABLETS PO SCH (10:24)
[2023-02-17] MEDS: PRENATAL VITAMINS W/ FOLIC ACID TABLET (FP) PO SCH (10:24)
[2023-02-17] MEDS: SERTRALINE HCL 50 MG TABLET (FP) PO SCH (10:28)
[2023-02-17] MEDS: QUEtiapine FUMARATE 100 MG TABLET (FP) PO SCH (10:29)
[2023-02-17] MEDS: QUEtiapine FUMARATE 300 MG TABLET PO SCH (22:37)
[2023-02-17] MEDS: THIAMINE HCL 100 MG TABLET (FP) PO SCH (22:38)
[2023-02-17] MEDS: IBUPROFEN 600 MG TABLET (FP) PO PRN (22:41)
[2023-02-18] MEDS: chlordiazePOXIDE HCL 10 MG CAPSULE PO SCH ×4 (05:40→22:16)
[2023-02-18] MEDS: metFORMIN HCL 500 MG TABLET (FP) PO SCH ×2 (06:46→17:22)
[2023-02-18] MEDS: PRENATAL VITAMINS W/ FOLIC ACID TABLET (FP) PO SCH (10:22)
[2023-02-18] MEDS: ALLOPURINOL 100 MG TABLET (FP) PO SCH ×2 (10:23→22:16)
[2023-02-18] MEDS: FAMOTIDINE 20 MG TABLET PO SCH ×2 (10:23→22:16)
[2023-02-18] MEDS: QUEtiapine FUMARATE 100 MG TABLET (FP) PO SCH (10:23)
[2023-02-18] MEDS: ASPIRIN 81 MG CHEWABLE TABLETS PO SCH (10:23)
[2023-02-18] MEDS: SERTRALINE HCL 50 MG TABLET (FP) PO SCH (10:23)
[2023-02-18] MEDS: COLCHICINE 0.6 MG CAPSULE PO SCH (10:23)
[2023-02-18] MEDS ORDERED: guaiFENesin 600 MG TABLET.ER (FP) PO SCH (22:00)
[2023-02-18] MEDS: QUEtiapine FUMARATE 300 MG TABLET PO SCH (22:16)
[2023-02-18] MEDS: THIAMINE HCL 100 MG TABLET (FP) PO SCH (22:16)
[2023-02-18] MEDS: ARTIFICIAL TEARS (POLYVINYL ALCOHOL) OPTH DROPS OU SCH (22:17)
[2023-02-18] MEDS: IBUPROFEN 600 MG TABLET (FP) PO PRN (22:19)
[2023-02-19] MEDS ORDERED: chlordiazePOXIDE HCL 10 MG CAPSULE PO PRN
[2023-02-19] MEDS: chlordiazePOXIDE HCL 10 MG CAPSULE PO SCH ×2 (05:27→17:41)
[2023-02-19] MEDS: metFORMIN HCL 500 MG TABLET (FP) PO SCH ×2 (06:46→17:41)
[2023-02-19] MEDS: SERTRALINE HCL 50 MG TABLET (FP) PO SCH (10:19)
[2023-02-19] MEDS: ALLOPURINOL 100 MG TABLET (FP) PO SCH ×2 (10:19→22:34)
[2023-02-19] MEDS: PRENATAL VITAMINS W/ FOLIC ACID TABLET (FP) PO SCH (10:19)
[2023-02-19] MEDS: QUEtiapine FUMARATE 100 MG TABLET (FP) PO SCH (10:20)
[2023-02-19] MEDS: FAMOTIDINE 20 MG TABLET PO SCH ×2 (10:20→22:34)
[2023-02-19] MEDS: ASPIRIN 81 MG CHEWABLE TABLETS PO SCH (10:20)
[2023-02-19] MEDS: COLCHICINE 0.6 MG CAPSULE PO SCH (10:20)
[2023-02-19] MEDS: IBUPROFEN 600 MG TABLET (FP) PO PRN ×2 (10:22→22:35)
[2023-02-19] MEDS: ARTIFICIAL TEARS (POLYVINYL ALCOHOL) OPTH DROPS OU SCH ×2 (10:36→22:37)
[2023-02-19 21:24] VITALS: RESP 18
[2023-02-19] MEDS: QUEtiapine FUMARATE 300 MG TABLET PO SCH (22:34)
[2023-02-19] MEDS: THIAMINE HCL 100 MG TABLET (FP) PO SCH (22:34)
[2023-02-19] MEDS: MELATONIN 5 MG TABLETS PO PRN (22:36)
[2023-02-20] MEDS ORDERED: chlordiazePOXIDE HCL 10 MG CAPSULE PO ONE (05:00)
[2023-02-20] MEDS: metFORMIN HCL 500 MG TABLET (FP) PO SCH (06:07)
[2023-02-20] MEDS: COLCHICINE 0.6 MG CAPSULE PO SCH (10:10)
[2023-02-20] MEDS: FAMOTIDINE 20 MG TABLET PO SCH (10:10)
[2023-02-20] MEDS: ARTIFICIAL TEARS (POLYVINYL ALCOHOL) OPTH DROPS OU SCH (10:10)
[2023-02-20] MEDS: ASPIRIN 81 MG CHEWABLE TABLETS PO SCH (10:10)
[2023-02-20] MEDS: SERTRALINE HCL 50 MG TABLET (FP) PO SCH (10:11)
[2023-02-20] MEDS: PRENATAL VITAMINS W/ FOLIC ACID TABLET (FP) PO SCH (10:11)
[2023-02-20] MEDS: QUEtiapine FUMARATE 100 MG TABLET (FP) PO SCH (10:11)
[2023-02-20] MEDS: ALLOPURINOL 100 MG TABLET (FP) PO SCH (10:11)
[2023-02-20 14:16] VITALS: BP 177/112; PULSE 97; TEMP 96.9
== END 2023-02-20 14:10 | disposition other institution (70) | DRG 775 ==
LOC: YASAS 10:27 → Y6N 13:06
PROVIDERS: ADMIT Allergy & Immunology; ATTEND Surgery
PROC: HZ2ZZZZ Detoxification Services for Substance Abuse Treatment (ICD-10-PCS; principal; 2023-02-16)
DX: F10.230 Alcohol dependence with withdrawal, uncomplicated (principal); F17.210 Nicotine dependence, cigarettes, uncomplicated; F25.1 Schizoaffective disorder, depressive type; I10 Essential (primary) hypertension; K21.9 Gastro-esophageal reflux disease without esophagitis; E78.5 Hyperlipidemia, unspecified; E11.9 Type 2 diabetes mellitus without complications; Z79.84 Long term (current) use of oral hypoglycemic drugs; E66.01 Morbid (severe) obesity due to excess calories; Z68.41 Body mass index [BMI] 40.0-44.9, adult; Z88.7 Allergy status to serum and vaccine
CPT/HCPCS: 26055; 36415; 80053; 82962; 85027; 86780; 87635

== ENCOUNTER 2023-03-17 10:46 | Inpatient (IN) | payer OTHER ==
[2023-03-17 11:33] VITALS: BMI 40.7
[2023-03-17] MEDS ORDERED: NALOXONE HCL (KLOXXADO) 8 MG SPRAY NS PRN (13:03)
[2023-03-17] MEDS ORDERED: BISMUTH SUBSALICYLATE 524 MG/30 ML PO PRN (13:03)
[2023-03-17] MEDS ORDERED: ONDANSETRON *ODT* 4 MG TABLET SL PRN (13:03)
[2023-03-17] MEDS ORDERED: guaiFENesin 600 MG TABLET.ER (FP) PO PRN (13:03)
[2023-03-17] MEDS ORDERED: METHOCARBAMOL 500 MG TABLET PO PRN (13:03)
[2023-03-17] MEDS ORDERED: ACETAMINOPHEN 325 MG TABLET (FP) PO PRN (13:03)
[2023-03-17] MEDS ORDERED: MAG HYDROX/AL HYDROX/SIMETH 30 ML UNIT-DOSE CUP PO PRN (13:03)
[2023-03-17] MEDS ORDERED: LOPERAMIDE HCL 2 MG CAPSULE PO PRN (13:03)
[2023-03-17] MEDS ORDERED: BENZONATATE 200 MG CAPSULE PO PRN (13:03)
[2023-03-17] MEDS ORDERED: NICOTINE 21 MG/24 HOURS TOPICAL PATCH TD PRN (13:03)
[2023-03-17] MEDS ORDERED: DICYCLOMINE HCL 10 MG CAPSULE PO PRN (13:03)
[2023-03-17] MEDS ORDERED: chlordiazePOXIDE HCL 25 MG CAPSULE PO PRN (13:03)
[2023-03-17] MEDS ORDERED: NICOTINE 10 MG CARTRIDGE (INHALER) IH PRN (13:03)
[2023-03-17] MEDS ORDERED: POLYETHYLENE GLYCOL (HEALTHYLAX) 3350 17 GM PACKET PO PRN (13:03)
[2023-03-17] MEDS ORDERED: MAGNESIUM HYDROX 2400MG/30ML ORAL SUSPENSION 30 ML CUP PO PRN (13:03)
[2023-03-17] MEDS ORDERED: NALOXONE HCL 0.4 MG/ML VIAL IM PRN (13:03)
[2023-03-17] MEDS ORDERED: COLCHICINE 0.6 MG CAPSULE PO SCH (15:00)
[2023-03-17] MEDS: PANTOPRAZOLE 40 MG TABLET PO SCH (15:32)
[2023-03-17] MEDS: metFORMIN HCL 500 MG TABLET (FP) PO SCH (17:30)
[2023-03-17] MEDS: chlordiazePOXIDE HCL 25 MG CAPSULE PO SCH ×2 (17:38→22:58)
[2023-03-17] MEDS: ALLOPURINOL 100 MG TABLET (FP) PO SCH ×2 (19:07→22:58)
[2023-03-17] MEDS: THIAMINE HCL 100 MG TABLET (FP) PO SCH (22:58)
[2023-03-17] MEDS: MELATONIN 5 MG TABLETS PO SCH (22:58)
[2023-03-17] MEDS: BENZOCAINE/MENTHOL (CHLORASEPTIC ) LOZENGE MM PRN (23:15)
[2023-03-18] MEDS: chlordiazePOXIDE HCL 25 MG CAPSULE PO SCH ×4 (06:00→22:55)
[2023-03-18] MEDS: metFORMIN HCL 500 MG TABLET (FP) PO SCH ×2 (06:43→17:30)
[2023-03-18] MEDS: COLCHICINE 0.6 MG TAB PO SCH (10:52)
[2023-03-18] MEDS: predniSONE 20 MG TABLET (UD) PO SCH (10:53)
[2023-03-18] MEDS: ALLOPURINOL 100 MG TABLET (FP) PO SCH ×2 (10:53→22:55)
[2023-03-18] MEDS: PANTOPRAZOLE 40 MG TABLET PO SCH (10:53)
[2023-03-18] MEDS: PRENATAL VITAMINS W/ FOLIC ACID TABLET (FP) PO SCH (10:53)
[2023-03-18 13:12] LABS: POTASSIUM 3.6 mmol/L (3.5-5.1)
[2023-03-18 13:13] LABS: MCHC 33.2 g/dl (32.0-35.9); MEAN CELL VOLUME 90.4 fl (80-96); MEAN PLT VOLUME 10.2 fl (7.5-11.1); PLATELET COUNT 166 10^3/uL (134-434); RBC 3.98 M/mm3 (4.00-5.60); RDW 15.4 % (11.9-15.9); WHITE BLOOD COUNT 6.1 K/mm3 (4.0-10.0)
[2023-03-18 13:19] LABS: ALBUMIN 2.8 g/dl (3.4-5.0); BLOOD UREA NITROGEN 15.4 mg/dL (7-18); CALCIUM 9.1 mg/dL (8.5-10.1); CREATININE 0.9 mg/dL (0.55-1.3)
[2023-03-18 13:21] LABS: BILIRUBIN,TOTAL 0.2 mg/dL (0.2-1); TOT PROT 5.9 g/dl (6.4-8.2)
[2023-03-18] MEDS: MELATONIN 5 MG TABLETS PO SCH (22:55)
[2023-03-18] MEDS: THIAMINE HCL 100 MG TABLET (FP) PO SCH (22:55)
[2023-03-18] MEDS ORDERED: QUEtiapine FUMARATE 300 MG TABLET PO SCH (23:45)
[2023-03-19] MEDS: BENZOCAINE/MENTHOL (CHLORASEPTIC ) LOZENGE MM PRN ×3 (02:41→21:58)
[2023-03-19] MEDS: chlordiazePOXIDE HCL 25 MG CAPSULE PO SCH ×4 (06:00→21:59)
[2023-03-19] MEDS: metFORMIN HCL 500 MG TABLET (FP) PO SCH ×2 (06:50→17:26)
[2023-03-19] MEDS: COLCHICINE 0.6 MG TAB PO SCH (10:30)
[2023-03-19] MEDS: PANTOPRAZOLE 40 MG TABLET PO SCH (10:30)
[2023-03-19] MEDS: ALLOPURINOL 100 MG TABLET (FP) PO SCH ×2 (10:31→21:55)
[2023-03-19] MEDS: PRENATAL VITAMINS W/ FOLIC ACID TABLET (FP) PO SCH (10:31)
[2023-03-19] MEDS: predniSONE 20 MG TABLET (UD) PO SCH (10:31)
[2023-03-19] MEDS ORDERED: guaiFENesin 200 MG/10 ML 10 ML UNIT-DOSE CUPS PO PRN (11:57)
[2023-03-19] MEDS: ASPIRIN 81 MG CHEWABLE TABLETS PO SCH (13:00)
[2023-03-19] MEDS: THIAMINE HCL 100 MG TABLET (FP) PO SCH (21:55)
[2023-03-19] MEDS: MELATONIN 5 MG TABLETS PO SCH (21:59)
[2023-03-19] MEDS ORDERED: ATORVASTATIN CA 80 MG TABLET (FP) PO SCH (22:00)
[2023-03-20] MEDS ORDERED: chlordiazePOXIDE HCL 10 MG CAPSULE PO PRN
[2023-03-20] MEDS: chlordiazePOXIDE HCL 10 MG CAPSULE PO SCH ×2 (05:55→10:29)
[2023-03-20] MEDS: metFORMIN HCL 500 MG TABLET (FP) PO SCH (06:10)
[2023-03-20] MEDS: ASPIRIN 81 MG CHEWABLE TABLETS PO SCH (10:28)
[2023-03-20] MEDS: predniSONE 20 MG TABLET (UD) PO SCH (10:28)
[2023-03-20] MEDS: PRENATAL VITAMINS W/ FOLIC ACID TABLET (FP) PO SCH (10:28)
[2023-03-20] MEDS: COLCHICINE 0.6 MG TAB PO SCH (10:28)
[2023-03-20] MEDS: ALLOPURINOL 100 MG TABLET (FP) PO SCH (10:29)
[2023-03-20] MEDS: PANTOPRAZOLE 40 MG TABLET PO SCH (10:29)
[2023-03-20 13:45] VITALS: PULSE 86; RESP 18
[2023-03-20 17:50] VITALS: BP 145/96; TEMP 97.7
[2023-03-21] MEDS ORDERED: chlordiazePOXIDE HCL 10 MG CAPSULE PO SCH (05:00)
[2023-03-22] MEDS ORDERED: chlordiazePOXIDE HCL 10 MG CAPSULE PO ONE (05:00)
[2023-03-22] MEDS ORDERED: predniSONE 20 MG TABLET (UD) PO SCH (10:00)
[2023-03-24] MEDS ORDERED: predniSONE 10 MG TABLET (UD) PO SCH (10:00)
== END 2023-03-20 18:00 | disposition left against medical advice (07) | DRG 770 ==
LOC: YASAS 10:46 → Y3N 14:03
PROVIDERS: ADMIT Allergy & Immunology; ATTEND Surgery
PROC: HZ2ZZZZ Detoxification Services for Substance Abuse Treatment (ICD-10-PCS; principal; 2023-03-17)
DX: F10.230 Alcohol dependence with withdrawal, uncomplicated (principal); F17.210 Nicotine dependence, cigarettes, uncomplicated; F10.282 Alcohol dependence with alcohol-induced sleep disorder; U07.1 COVID-19; G47.33 Obstructive sleep apnea (adult) (pediatric); I10 Essential (primary) hypertension; K21.9 Gastro-esophageal reflux disease without esophagitis; E78.5 Hyperlipidemia, unspecified; E11.39 Type 2 diabetes mellitus with other diabetic ophthalmic complication; Z79.84 Long term (current) use of oral hypoglycemic drugs; M1A.9XX1 Chronic gout, unspecified, with tophus (tophi); E66.01 Morbid (severe) obesity due to excess calories; Z68.41 Body mass index [BMI] 40.0-44.9, adult; Z87.11 Personal history of peptic ulcer disease; Z88.7 Allergy status to serum and vaccine; Z88.8 Allergy status to other drugs, medicaments and biological substances
CPT/HCPCS: 26055; 36415; 80053; 82962; 85027; 86780; 87635

== ENCOUNTER 2023-04-16 10:46 | Inpatient (IN) | payer OTHER ==
[2023-04-16 11:09] VITALS: BMI 41.0
[2023-04-16] MEDS ORDERED: BISMUTH SUBSALICYLATE 524 MG/30 ML PO PRN (11:49)
[2023-04-16] MEDS ORDERED: IBUPROFEN 400 MG TABLET (FP) PO PRN (11:49)
[2023-04-16] MEDS ORDERED: NALOXONE HCL 0.4 MG/ML VIAL IM PRN (11:49)
[2023-04-16] MEDS ORDERED: ONDANSETRON *ODT* 4 MG TABLET SL PRN (11:49)
[2023-04-16] MEDS ORDERED: POLYETHYLENE GLYCOL (HEALTHYLAX) 3350 17 GM PACKET PO PRN (11:49)
[2023-04-16] MEDS ORDERED: LOPERAMIDE HCL 2 MG CAPSULE PO PRN (11:49)
[2023-04-16] MEDS ORDERED: IBUPROFEN 600 MG TABLET (FP) PO PRN (11:49)
[2023-04-16] MEDS ORDERED: LORazepam 1 MG TABLET PO PRN (11:49)
[2023-04-16] MEDS ORDERED: hydrOXYzine PAMOATE 25 MG CAPSULE (FP) PO PRN (11:49)
[2023-04-16] MEDS ORDERED: DICYCLOMINE HCL 10 MG CAPSULE PO PRN (11:49)
[2023-04-16] MEDS ORDERED: MAGNESIUM HYDROX 2400MG/30ML ORAL SUSPENSION 30 ML CUP PO PRN (11:49)
[2023-04-16] MEDS ORDERED: NALOXONE HCL (KLOXXADO) 8 MG SPRAY NS PRN (11:49)
[2023-04-16] MEDS ORDERED: ACETAMINOPHEN 325 MG TABLET (FP) PO PRN (11:49)
[2023-04-16] MEDS ORDERED: BENZOCAINE/MENTHOL (CHLORASEPTIC ) LOZENGE MM PRN (11:49)
[2023-04-16] MEDS ORDERED: guaiFENesin 600 MG TABLET.ER (FP) PO PRN (11:49)
[2023-04-16] MEDS ORDERED: BENZONATATE 200 MG CAPSULE PO PRN (11:49)
[2023-04-16] MEDS: PRENATAL VITAMINS W/ FOLIC ACID TABLET (FP) PO SCH (12:53)
[2023-04-16] MEDS: NICOTINE 14 MG/24 HOURS TOPICAL PATCH TD SCH (12:53)
[2023-04-16] MEDS: METHOCARBAMOL 500 MG TABLET PO PRN (12:54)
[2023-04-16] MEDS ORDERED: METHOCARBAMOL 500 MG TABLET ONE (13:24)
[2023-04-16] MEDS ORDERED: NICOTINE 14 MG/24 HOURS TOPICAL PATCH TD ONE (13:24)
[2023-04-16] MEDS ORDERED: PRENATAL VITAMINS W/ FOLIC ACID TABLET (FP) PO ONE (13:25)
[2023-04-16] MEDS ORDERED: cloNIDine HCL 0.1 MG TABLET PO ONE (13:44)
[2023-04-16] MEDS ORDERED: METOPROLOL TARTRATE 50 MG TABLET (FP) PO ONE (14:25)
[2023-04-16 16:16] LABS: POTASSIUM 4.8 mmol/L (3.5-5.1)
[2023-04-16 16:19] LABS: HEMATOCRIT 41.7 % (35.4-49); HEMOGLOBIN 13.6 GM/dL (11.7-16.9); MCHC 32.7 g/dl (32.0-35.9); MEAN CELL VOLUME 91.8 fl (80-96); MEAN PLT VOLUME 11.4 fl (7.5-11.1); PLATELET COUNT 112 10^3/uL (134-434); RBC 4.54 M/mm3 (4.00-5.60); RDW 16.1 % (11.9-15.9); WHITE BLOOD COUNT 3.3 K/mm3 (4.0-10.0)
[2023-04-16 16:27] LABS: ALBUMIN 3.9 g/dl (3.4-5.0); BLOOD UREA NITROGEN 10.8 mg/dL (7-18); CALCIUM 9.3 mg/dL (8.5-10.1)
[2023-04-16 16:29] LABS: CREATININE 1.2 mg/dL (0.55-1.3)
[2023-04-16 16:31] LABS: BILIRUBIN,TOTAL 0.4 mg/dL (0.2-1); TOT PROT 7.1 g/dl (6.4-8.2)
[2023-04-16] MEDS: LORazepam 2 MG TABLET PO SCH ×2 (18:11→22:34)
[2023-04-16] MEDS: metFORMIN HCL 500 MG TABLET (FP) PO SCH (18:11)
[2023-04-16] MEDS: MELATONIN 5 MG TABLETS PO SCH (22:33)
[2023-04-16] MEDS: QUEtiapine FUMARATE 400 MG TABLET PO SCH (22:33)
[2023-04-16] MEDS: THIAMINE HCL 100 MG TABLET (FP) PO SCH (22:33)
[2023-04-16] MEDS: ATORVASTATIN CA 80 MG TABLET (FP) PO SCH (22:33)
[2023-04-16] MEDS: ALLOPURINOL 100 MG TABLET (FP) PO SCH (23:04)
[2023-04-17] MEDS: LORazepam 2 MG TABLET PO SCH ×4 (05:41→22:33)
[2023-04-17] MEDS: metFORMIN HCL 500 MG TABLET (FP) PO SCH ×2 (06:04→16:53)
[2023-04-17] MEDS: ALLOPURINOL 100 MG TABLET (FP) PO SCH ×2 (10:15→22:29)
[2023-04-17] MEDS: NICOTINE 14 MG/24 HOURS TOPICAL PATCH TD SCH (10:15)
[2023-04-17] MEDS: PANTOPRAZOLE 40 MG TABLET PO SCH (10:16)
[2023-04-17] MEDS: ASPIRIN 81 MG CHEWABLE TABLETS PO SCH (10:16)
[2023-04-17] MEDS: QUEtiapine FUMARATE 100 MG TABLET (FP) PO SCH (10:16)
[2023-04-17] MEDS: SERTRALINE HCL 50 MG TABLET (FP) PO SCH (10:17)
[2023-04-17] MEDS: PRENATAL VITAMINS W/ FOLIC ACID TABLET (FP) PO SCH (10:18)
[2023-04-17] MEDS: MAG HYDROX/AL HYDROX/SIMETH 30 ML UNIT-DOSE CUP PO PRN (10:21)
[2023-04-17] MEDS: COLCHICINE 0.6 MG CAPSULE PO SCH (11:24)
[2023-04-17] MEDS: INSULIN SLIDING SCALE (NOVOLOG) 1 VIAL SQ SCH (16:53)
[2023-04-17] MEDS: THIAMINE HCL 100 MG TABLET (FP) PO SCH (22:28)
[2023-04-17] MEDS: MELATONIN 5 MG TABLETS PO SCH (22:28)
[2023-04-17] MEDS: QUEtiapine FUMARATE 400 MG TABLET PO SCH (22:31)
[2023-04-17] MEDS: ATORVASTATIN CA 80 MG TABLET (FP) PO SCH (22:32)
[2023-04-18] MEDS: LORazepam 1 MG TABLET PO SCH ×4 (06:00→22:20)
[2023-04-18] MEDS: metFORMIN HCL 500 MG TABLET (FP) PO SCH ×2 (06:03→17:27)
[2023-04-18] MEDS: INSULIN SLIDING SCALE (NOVOLOG) 1 VIAL SQ SCH ×2 (06:44→17:27)
[2023-04-18] MEDS: PRENATAL VITAMINS W/ FOLIC ACID TABLET (FP) PO SCH (10:43)
[2023-04-18] MEDS: SERTRALINE HCL 50 MG TABLET (FP) PO SCH (10:44)
[2023-04-18] MEDS: ALLOPURINOL 100 MG TABLET (FP) PO SCH ×2 (10:44→22:20)
[2023-04-18] MEDS: ASPIRIN 81 MG CHEWABLE TABLETS PO SCH (10:44)
[2023-04-18] MEDS: QUEtiapine FUMARATE 100 MG TABLET (FP) PO SCH (10:44)
[2023-04-18] MEDS: PANTOPRAZOLE 40 MG TABLET PO SCH (10:46)
[2023-04-18] MEDS: COLCHICINE 0.6 MG CAPSULE PO SCH (10:46)
[2023-04-18] MEDS: NICOTINE 14 MG/24 HOURS TOPICAL PATCH TD SCH (10:47)
[2023-04-18] MEDS ORDERED: ALBUTEROL SO4 HFA INHALER IH PRN (13:54)
[2023-04-18] MEDS ORDERED: amLODIPine BESYLATE 5 MG TABLET (FP) PO ONE (13:57)
[2023-04-18] MEDS ORDERED: amLODIPine BESYLATE 10 MG TABLET (FP) PO ONE (14:15)
[2023-04-18] MEDS: METHOCARBAMOL 500 MG TABLET PO PRN (14:52)
[2023-04-18] MEDS: MAG HYDROX/AL HYDROX/SIMETH 30 ML UNIT-DOSE CUP PO PRN (14:52)
[2023-04-18] MEDS: ATORVASTATIN CA 80 MG TABLET (FP) PO SCH (22:19)
[2023-04-18] MEDS: QUEtiapine FUMARATE 400 MG TABLET PO SCH (22:20)
[2023-04-18] MEDS: THIAMINE HCL 100 MG TABLET (FP) PO SCH (22:20)
[2023-04-19] MEDS ORDERED: LORazepam 0.5 MG TABLET PO PRN
[2023-04-19] MEDS: MELATONIN 5 MG TABLETS PO SCH ×2 (00:09→23:31)
[2023-04-19] MEDS: LORazepam 0.5 MG TABLET PO SCH ×4 (05:20→23:32)
[2023-04-19] MEDS: metFORMIN HCL 500 MG TABLET (FP) PO SCH ×2 (07:42→17:17)
[2023-04-19] MEDS: INSULIN SLIDING SCALE (NOVOLOG) 1 VIAL SQ SCH ×2 (07:43→17:18)
[2023-04-19] MEDS: ASPIRIN 81 MG CHEWABLE TABLETS PO SCH (10:27)
[2023-04-19] MEDS: PRENATAL VITAMINS W/ FOLIC ACID TABLET (FP) PO SCH (10:27)
[2023-04-19] MEDS: METHOCARBAMOL 500 MG TABLET PO PRN (10:27)
[2023-04-19] MEDS: PANTOPRAZOLE 40 MG TABLET PO SCH (10:27)
[2023-04-19] MEDS: SERTRALINE HCL 50 MG TABLET (FP) PO SCH (10:27)
[2023-04-19] MEDS: QUEtiapine FUMARATE 100 MG TABLET (FP) PO SCH (10:27)
[2023-04-19] MEDS: ALLOPURINOL 100 MG TABLET (FP) PO SCH ×2 (10:28→23:32)
[2023-04-19] MEDS: COLCHICINE 0.6 MG CAPSULE PO SCH (10:28)
[2023-04-19] MEDS: NICOTINE 14 MG/24 HOURS TOPICAL PATCH TD SCH (10:29)
[2023-04-19] MEDS: amLODIPine BESYLATE 5 MG TABLET (FP) PO SCH (15:16)
[2023-04-19] MEDS: ATORVASTATIN CA 80 MG TABLET (FP) PO SCH (23:31)
[2023-04-19] MEDS: QUEtiapine FUMARATE 400 MG TABLET PO SCH (23:31)
[2023-04-19] MEDS: THIAMINE HCL 100 MG TABLET (FP) PO SCH (23:32)
[2023-04-20] MEDS ORDERED: LORazepam 0.5 MG TABLET PO ONE (05:00)
[2023-04-20] MEDS: metFORMIN HCL 500 MG TABLET (FP) PO SCH (06:42)
[2023-04-20] MEDS: INSULIN SLIDING SCALE (NOVOLOG) 1 VIAL SQ SCH (06:43)
[2023-04-20] MEDS: ALLOPURINOL 100 MG TABLET (FP) PO SCH (10:21)
[2023-04-20] MEDS: PRENATAL VITAMINS W/ FOLIC ACID TABLET (FP) PO SCH (10:21)
[2023-04-20] MEDS: PANTOPRAZOLE 40 MG TABLET PO SCH (10:22)
[2023-04-20] MEDS: SERTRALINE HCL 50 MG TABLET (FP) PO SCH (10:22)
[2023-04-20] MEDS: COLCHICINE 0.6 MG CAPSULE PO SCH (10:23)
[2023-04-20] MEDS: amLODIPine BESYLATE 5 MG TABLET (FP) PO SCH (10:23)
[2023-04-20] MEDS: ASPIRIN 81 MG CHEWABLE TABLETS PO SCH (10:23)
[2023-04-20] MEDS: QUEtiapine FUMARATE 100 MG TABLET (FP) PO SCH (10:23)
[2023-04-20] MEDS: NICOTINE 14 MG/24 HOURS TOPICAL PATCH TD SCH (10:24)
[2023-04-20 13:12] VITALS: BP 142/95; PULSE 86; RESP 20; TEMP 98.1
== END 2023-04-20 15:13 | disposition other institution (70) | DRG 775 ==
LOC: YASAS 10:46 → Y6N 12:55
PROVIDERS: ADMIT Allergy & Immunology; ATTEND Allergy & Immunology
PROC: HZ2ZZZZ Detoxification Services for Substance Abuse Treatment (ICD-10-PCS; principal; 2023-04-16)
DX: F10.230 Alcohol dependence with withdrawal, uncomplicated (principal); F17.210 Nicotine dependence, cigarettes, uncomplicated; F25.1 Schizoaffective disorder, depressive type; F10.282 Alcohol dependence with alcohol-induced sleep disorder; E78.5 Hyperlipidemia, unspecified; G47.33 Obstructive sleep apnea (adult) (pediatric); I10 Essential (primary) hypertension; E11.9 Type 2 diabetes mellitus without complications; E66.01 Morbid (severe) obesity due to excess calories; Z68.41 Body mass index [BMI] 40.0-44.9, adult; Z79.84 Long term (current) use of oral hypoglycemic drugs; Z87.11 Personal history of peptic ulcer disease; Z88.7 Allergy status to serum and vaccine
CPT/HCPCS: 36415; 80053; 82962; 83036; 85027; 86780; 87635; 93005; 93010

== ENCOUNTER 2023-04-20 15:19 | Inpatient (IN) | payer OTHER ==
[2023-04-20] MEDS ORDERED: METHOCARBAMOL 500 MG TABLET PO PRN (17:17)
[2023-04-20] MEDS ORDERED: NICOTINE 14 MG/24 HOURS TOPICAL PATCH TD PRN (17:17)
[2023-04-20] MEDS ORDERED: hydrOXYzine PAMOATE 25 MG CAPSULE (FP) PO PRN (17:17)
[2023-04-20] MEDS ORDERED: LOPERAMIDE HCL 2 MG CAPSULE PO PRN (17:17)
[2023-04-20] MEDS ORDERED: NALOXONE HCL (KLOXXADO) 8 MG SPRAY NS PRN (17:17)
[2023-04-20] MEDS ORDERED: BENZONATATE 200 MG CAPSULE PO PRN (17:17)
[2023-04-20] MEDS ORDERED: AMMONIUM LACTATE 12% LOTION 225 GM BOTTLE TP PRN (17:17)
[2023-04-20] MEDS ORDERED: COLLOIDAL OATMEAL 1 BAR EACH TP PRN (17:17)
[2023-04-20] MEDS ORDERED: NALOXONE HCL 0.4 MG/ML VIAL IVPUSH PRN (17:17)
[2023-04-20] MEDS ORDERED: IBUPROFEN 400 MG TABLET (FP) PO PRN (17:17)
[2023-04-20] MEDS ORDERED: MAG HYDROX/AL HYDROX/SIMETH 30 ML UNIT-DOSE CUP PO PRN (17:17)
[2023-04-20] MEDS ORDERED: POLYETHYLENE GLYCOL (HEALTHYLAX) 3350 17 GM PACKET PO PRN (17:17)
[2023-04-20] MEDS ORDERED: ACETAMINOPHEN 325 MG TABLET (FP) PO PRN (17:17)
[2023-04-20] MEDS ORDERED: MAGNESIUM HYDROX 2400MG/30ML ORAL SUSPENSION 30 ML CUP PO PRN (17:17)
[2023-04-20] MEDS: THIAMINE HCL 100 MG TABLET (FP) PO SCH (21:24)
[2023-04-20] MEDS ORDERED: ATORVASTATIN CA 40 MG TABLET (FP) ONE (21:24)
[2023-04-20] MEDS: MELATONIN 5 MG TABLETS PO SCH (21:24)
[2023-04-20] MEDS ORDERED: QUEtiapine FUMARATE 100 MG TABLET (FP) ONE (21:25)
[2023-04-20] MEDS: QUEtiapine FUMARATE 300 MG TABLET PO SCH (21:25)
[2023-04-20] MEDS: ATORVASTATIN CA 80 MG TABLET (FP) PO SCH (21:25)
[2023-04-20] MEDS: ALLOPURINOL 100 MG TABLET (FP) PO SCH (22:04)
[2023-04-21] MEDS: INSULIN SLIDING SCALE (NOVOLOG) 1 VIAL SQ SCH ×2 (06:10→16:50)
[2023-04-21] MEDS: IBUPROFEN 600 MG TABLET (FP) PO PRN (06:11)
[2023-04-21] MEDS: BENZOCAINE/MENTHOL (CHLORASEPTIC ) LOZENGE MM PRN (06:11)
[2023-04-21] MEDS: guaiFENesin 600 MG TABLET.ER (FP) PO PRN ×2 (06:11→21:44)
[2023-04-21] MEDS: metFORMIN HCL 500 MG TABLET (FP) PO SCH ×2 (06:13→16:50)
[2023-04-21] MEDS: PRENATAL VITAMINS W/ FOLIC ACID TABLET (FP) PO SCH (09:46)
[2023-04-21] MEDS: SERTRALINE HCL 50 MG TABLET (FP) PO SCH (09:46)
[2023-04-21] MEDS: ASPIRIN 81 MG CHEWABLE TABLETS PO SCH (09:46)
[2023-04-21] MEDS: PANTOPRAZOLE 40 MG TABLET PO SCH (09:46)
[2023-04-21] MEDS ORDERED: PATIENT'S OWN MEDICATION (NON-FORMULARY) (Sertraline Hcl [Zoloft] 100 MG Tablet) PO SCH (10:00)
[2023-04-21] MEDS: QUEtiapine FUMARATE 100 MG TABLET (FP) PO SCH (11:00)
[2023-04-21] MEDS: ALLOPURINOL 100 MG TABLET (FP) PO SCH ×2 (11:50→21:40)
[2023-04-21] MEDS: COLCHICINE 0.6 MG CAPSULE PO SCH (11:53)
[2023-04-21] MEDS ORDERED: ATORVASTATIN CA 40 MG TABLET (FP) ONE (18:58)
[2023-04-21] MEDS ORDERED: QUEtiapine FUMARATE 100 MG TABLET (FP) ONE (18:58)
[2023-04-21] MEDS: ATORVASTATIN CA 80 MG TABLET (FP) PO SCH (21:40)
[2023-04-21] MEDS: MELATONIN 5 MG TABLETS PO SCH (21:42)
[2023-04-21] MEDS: QUEtiapine FUMARATE 300 MG TABLET PO SCH (21:42)
[2023-04-21] MEDS: THIAMINE HCL 100 MG TABLET (FP) PO SCH (21:42)
[2023-04-22] MEDS: metFORMIN HCL 500 MG TABLET (FP) PO SCH ×2 (06:33→17:18)
[2023-04-22] MEDS: INSULIN SLIDING SCALE (NOVOLOG) 1 VIAL SQ SCH ×2 (06:39→17:18)
[2023-04-22] MEDS: PRENATAL VITAMINS W/ FOLIC ACID TABLET (FP) PO SCH (09:58)
[2023-04-22] MEDS: SERTRALINE HCL 50 MG TABLET (FP) PO SCH (09:58)
[2023-04-22] MEDS: QUEtiapine FUMARATE 100 MG TABLET (FP) PO SCH (09:59)
[2023-04-22] MEDS: ASPIRIN 81 MG CHEWABLE TABLETS PO SCH (09:59)
[2023-04-22] MEDS: COLCHICINE 0.6 MG CAPSULE PO SCH (09:59)
[2023-04-22] MEDS: PANTOPRAZOLE 40 MG TABLET PO SCH (09:59)
[2023-04-22] MEDS: ALLOPURINOL 100 MG TABLET (FP) PO SCH ×2 (09:59→21:24)
[2023-04-22] MEDS: BENZOCAINE/MENTHOL (CHLORASEPTIC ) LOZENGE MM PRN (10:00)
[2023-04-22] MEDS: guaiFENesin 600 MG TABLET.ER (FP) PO PRN (10:00)
[2023-04-22] MEDS: IBUPROFEN 600 MG TABLET (FP) PO PRN (10:01)
[2023-04-22] MEDS ORDERED: ATORVASTATIN CA 40 MG TABLET (FP) ONE (19:12)
[2023-04-22] MEDS ORDERED: QUEtiapine FUMARATE 100 MG TABLET (FP) ONE (19:12)
[2023-04-22] MEDS: THIAMINE HCL 100 MG TABLET (FP) PO SCH (21:23)
[2023-04-22] MEDS: QUEtiapine FUMARATE 300 MG TABLET PO SCH (21:23)
[2023-04-22] MEDS: ATORVASTATIN CA 80 MG TABLET (FP) PO SCH (21:24)
[2023-04-22] MEDS: MELATONIN 5 MG TABLETS PO SCH (21:24)
[2023-04-23] MEDS: metFORMIN HCL 500 MG TABLET (FP) PO SCH ×2 (06:29→16:23)
[2023-04-23] MEDS: INSULIN SLIDING SCALE (NOVOLOG) 1 VIAL SQ SCH ×2 (06:30→16:24)
[2023-04-23] MEDS ORDERED: QUEtiapine FUMARATE 50 MG TABLET ONE (08:49)
[2023-04-23] MEDS: PRENATAL VITAMINS W/ FOLIC ACID TABLET (FP) PO SCH (10:10)
[2023-04-23] MEDS: SERTRALINE HCL 50 MG TABLET (FP) PO SCH (10:11)
[2023-04-23] MEDS: PANTOPRAZOLE 40 MG TABLET PO SCH (10:11)
[2023-04-23] MEDS: ASPIRIN 81 MG CHEWABLE TABLETS PO SCH (10:11)
[2023-04-23] MEDS: COLCHICINE 0.6 MG CAPSULE PO SCH (10:11)
[2023-04-23] MEDS: QUEtiapine FUMARATE 100 MG TABLET (FP) PO SCH (10:12)
[2023-04-23] MEDS: ALLOPURINOL 100 MG TABLET (FP) PO SCH ×2 (10:13→21:14)
[2023-04-23] MEDS: BENZOCAINE/MENTHOL (CHLORASEPTIC ) LOZENGE MM PRN (10:14)
[2023-04-23] MEDS ORDERED: guaiFENesin 600 MG TABLET.ER (FP) PO PRN (12:18)
[2023-04-23] MEDS: IBUPROFEN 600 MG TABLET (FP) PO PRN (16:25)
[2023-04-23] MEDS ORDERED: ATORVASTATIN CA 40 MG TABLET (FP) ONE (18:45)
[2023-04-23] MEDS: THIAMINE HCL 100 MG TABLET (FP) PO SCH (21:14)
[2023-04-23] MEDS: ATORVASTATIN CA 80 MG TABLET (FP) PO SCH (21:14)
[2023-04-23] MEDS: QUEtiapine FUMARATE 400 MG TABLET PO SCH (21:14)
[2023-04-23] MEDS: MELATONIN 5 MG TABLETS PO SCH (21:14)
[2023-04-24] MEDS: metFORMIN HCL 500 MG TABLET (FP) PO SCH ×2 (06:11→16:23)
[2023-04-24] MEDS: INSULIN SLIDING SCALE (NOVOLOG) 1 VIAL SQ SCH ×2 (06:13→16:24)
[2023-04-24 07:09] VITALS: TEMP 97.3
[2023-04-24] MEDS: PRENATAL VITAMINS W/ FOLIC ACID TABLET (FP) PO SCH (09:10)
[2023-04-24] MEDS: BENZOCAINE/MENTHOL (CHLORASEPTIC ) LOZENGE MM PRN (09:11)
[2023-04-24] MEDS: ALLOPURINOL 100 MG TABLET (FP) PO SCH ×2 (09:12→21:36)
[2023-04-24] MEDS: QUEtiapine FUMARATE 100 MG TABLET (FP) PO SCH (09:12)
[2023-04-24] MEDS: ASPIRIN 81 MG CHEWABLE TABLETS PO SCH (09:12)
[2023-04-24] MEDS: SERTRALINE HCL 50 MG TABLET (FP) PO SCH (09:12)
[2023-04-24] MEDS: PANTOPRAZOLE 40 MG TABLET PO SCH (09:12)
[2023-04-24] MEDS: IBUPROFEN 600 MG TABLET (FP) PO PRN ×2 (09:13→21:37)
[2023-04-24] MEDS: COLCHICINE 0.6 MG CAPSULE PO SCH (09:13)
[2023-04-24] MEDS ORDERED: ATORVASTATIN CA 40 MG TABLET (FP) ONE (19:07)
[2023-04-24] MEDS: THIAMINE HCL 100 MG TABLET (FP) PO SCH (21:36)
[2023-04-24] MEDS: QUEtiapine FUMARATE 400 MG TABLET PO SCH (21:36)
[2023-04-24] MEDS: ATORVASTATIN CA 80 MG TABLET (FP) PO SCH (21:36)
[2023-04-24] MEDS: MELATONIN 5 MG TABLETS PO SCH (21:36)
[2023-04-25] MEDS: metFORMIN HCL 500 MG TABLET (FP) PO SCH (06:42)
[2023-04-25] MEDS: INSULIN SLIDING SCALE (NOVOLOG) 1 VIAL SQ SCH (06:42)
[2023-04-25] MEDS: PRENATAL VITAMINS W/ FOLIC ACID TABLET (FP) PO SCH (10:00)
[2023-04-25] MEDS: QUEtiapine FUMARATE 100 MG TABLET (FP) PO SCH (10:00)
[2023-04-25] MEDS: ALLOPURINOL 100 MG TABLET (FP) PO SCH (10:00)
[2023-04-25] MEDS: SERTRALINE HCL 50 MG TABLET (FP) PO SCH (10:00)
[2023-04-25] MEDS: PANTOPRAZOLE 40 MG TABLET PO SCH (10:00)
[2023-04-25 10:01] VITALS: BP 140/86; PULSE 90; RESP 17
[2023-04-25] MEDS: COLCHICINE 0.6 MG CAPSULE PO SCH (10:01)
[2023-04-25] MEDS: ASPIRIN 81 MG CHEWABLE TABLETS PO SCH (10:01)
== END 2023-04-25 12:31 | disposition home or self-care (01) | DRG 772 ==
LOC: YASAS 15:19 → Y3W 15:20
PROVIDERS: ADMIT Allergy & Immunology; ATTEND Psychiatry & Neurology Pain Medicine
PROC: HZ42ZZZ Group Counseling for Substance Abuse Treatment, Cognitive-Behavioral (ICD-10-PCS; principal; 2023-04-20)
DX: F10.20 Alcohol dependence, uncomplicated (principal); F17.210 Nicotine dependence, cigarettes, uncomplicated; F25.1 Schizoaffective disorder, depressive type; G47.30 Sleep apnea, unspecified; E78.5 Hyperlipidemia, unspecified; I10 Essential (primary) hypertension; E11.9 Type 2 diabetes mellitus without complications; Z79.84 Long term (current) use of oral hypoglycemic drugs; Z87.11 Personal history of peptic ulcer disease; Z88.7 Allergy status to serum and vaccine
CPT/HCPCS: 36415; 82140; 82962; 86803

== ENCOUNTER 2023-06-20 11:03 | Inpatient (IN) | payer OTHER ==
[2023-06-20 11:50] VITALS: BMI 39.4
[2023-06-20] MEDS ORDERED: POLYETHYLENE GLYCOL (HEALTHYLAX) 3350 17 GM PACKET PO PRN (12:28)
[2023-06-20] MEDS ORDERED: NALOXONE HCL (KLOXXADO) 8 MG SPRAY NS PRN (12:28)
[2023-06-20] MEDS ORDERED: BENZONATATE 200 MG CAPSULE PO PRN (12:28)
[2023-06-20] MEDS ORDERED: MAGNESIUM HYDROX 2400MG/30ML ORAL SUSPENSION 30 ML CUP PO PRN (12:28)
[2023-06-20] MEDS ORDERED: guaiFENesin 600 MG TABLET.ER (FP) PO PRN (12:28)
[2023-06-20] MEDS ORDERED: BENZOCAINE/MENTHOL (CHLORASEPTIC ) LOZENGE MM PRN (12:28)
[2023-06-20] MEDS ORDERED: ACETAMINOPHEN 325 MG TABLET (FP) PO PRN (12:28)
[2023-06-20] MEDS ORDERED: ONDANSETRON *ODT* 4 MG TABLET SL PRN (12:28)
[2023-06-20] MEDS ORDERED: LOPERAMIDE HCL 2 MG CAPSULE PO PRN (12:28)
[2023-06-20] MEDS ORDERED: DICYCLOMINE HCL 10 MG CAPSULE PO PRN (12:28)
[2023-06-20] MEDS ORDERED: IBUPROFEN 400 MG TABLET (FP) PO PRN (12:28)
[2023-06-20] MEDS ORDERED: BISMUTH SUBSALICYLATE 262 MG/15 ML BTL PO PRN (12:28)
[2023-06-20] MEDS ORDERED: LORazepam 1 MG TABLET PO PRN (12:28)
[2023-06-20] MEDS ORDERED: NALOXONE HCL 0.4 MG/ML VIAL IM PRN (12:28)
[2023-06-20] MEDS ORDERED: MAG HYDROX/AL HYDROX/SIMETH 30 ML UNIT-DOSE CUP PO PRN (12:28)
[2023-06-20] MEDS: PRENATAL VITAMINS W/ FOLIC ACID TABLET (FP) PO SCH (12:30)
[2023-06-20] MEDS: LORazepam 2 MG TABLET PO SCH ×2 (17:19→22:25)
[2023-06-20] MEDS: IBUPROFEN 600 MG TABLET (FP) PO PRN (17:20)
[2023-06-20] MEDS ORDERED: QUEtiapine FUMARATE 300 MG TABLET PO SCH (22:00)
[2023-06-20] MEDS: THIAMINE HCL 100 MG TABLET (FP) PO SCH (22:25)
[2023-06-20] MEDS: MELATONIN 5 MG TABLETS PO SCH ×2 (22:26→22:29)
[2023-06-20] MEDS: METHOCARBAMOL 500 MG TABLET PO PRN (22:27)
[2023-06-21] MEDS: LORazepam 2 MG TABLET PO SCH ×4 (05:52→22:18)
[2023-06-21 09:37] LABS: HEMATOCRIT 34.3 % (35.4-49); HEMOGLOBIN 12.1 GM/dL (11.7-16.9); MCH 31.2 pg (25.7-33.7); MCHC 35.2 g/dl (32.0-35.9); MEAN CELL VOLUME 88.6 fl (80-96); MEAN PLT VOLUME 10.5 fl (7.5-11.1); PLATELET COUNT 107 10^3/uL (134-434); RBC 3.87 M/mm3 (4.00-5.60); RDW 14.6 % (11.9-15.9)
[2023-06-21] MEDS ORDERED: PATIENT'S OWN MEDICATION (NON-FORMULARY) (Sertraline Hcl [Zoloft] 100 MG Tablet) PO SCH (10:00)
[2023-06-21] MEDS: SERTRALINE HCL 50 MG TABLET (FP) PO SCH (10:22)
[2023-06-21] MEDS: ASPIRIN 81 MG CHEWABLE TABLETS PO SCH (10:23)
[2023-06-21] MEDS: PRENATAL VITAMINS W/ FOLIC ACID TABLET (FP) PO SCH (10:25)
[2023-06-21 10:26] LABS: BLOOD UREA NITROGEN 17.2 mg/dL (7-18)
[2023-06-21 11:00] LABS: ALBUMIN 3.1 g/dl (3.4-5.0); CALCIUM 8.9 mg/dL (8.5-10.1)
[2023-06-21 11:03] LABS: TOT PROT 6.1 g/dl (6.4-8.2)
[2023-06-21 11:05] LABS: BILIRUBIN,TOTAL 0.2 mg/dL (0.2-1)
[2023-06-21] MEDS: INSULIN SLIDING SCALE (NOVOLOG) 1 VIAL SQ SCH ×3 (11:32→22:17)
[2023-06-21 11:37] LABS: POTASSIUM 3.7 mmol/L (3.5-5.1)
[2023-06-21] MEDS ORDERED: INSULIN (NOVOLOG) ASPART 100 UNITS/ML 10ML VIAL ONE ×2 (16:59→21:25)
[2023-06-21] MEDS: metFORMIN HCL 500 MG TABLET (FP) PO SCH (17:26)
[2023-06-21] MEDS: METHOCARBAMOL 500 MG TABLET PO PRN (17:38)
[2023-06-21] MEDS: QUEtiapine FUMARATE 200 MG TABLET PO SCH (22:16)
[2023-06-21] MEDS: ALLOPURINOL 100 MG TABLET (FP) PO SCH (22:16)
[2023-06-21] MEDS: MELATONIN 5 MG TABLETS PO SCH (22:16)
[2023-06-21] MEDS: THIAMINE HCL 100 MG TABLET (FP) PO SCH (22:16)
[2023-06-21] MEDS: hydrOXYzine PAMOATE 25 MG CAPSULE (FP) PO PRN (22:20)
[2023-06-21] MEDS: IBUPROFEN 600 MG TABLET (FP) PO PRN (22:20)
[2023-06-22] MEDS: LORazepam 1 MG TABLET PO SCH ×4 (05:48→22:33)
[2023-06-22] MEDS: metFORMIN HCL 500 MG TABLET (FP) PO SCH ×2 (06:01→17:21)
[2023-06-22] MEDS: INSULIN SLIDING SCALE (NOVOLOG) 1 VIAL SQ SCH ×4 (06:02→22:36)
[2023-06-22] MEDS: ASPIRIN 81 MG CHEWABLE TABLETS PO SCH (10:51)
[2023-06-22] MEDS: PANTOPRAZOLE 40 MG TABLET PO SCH (10:51)
[2023-06-22] MEDS: ALLOPURINOL 100 MG TABLET (FP) PO SCH ×2 (10:51→22:32)
[2023-06-22] MEDS: SERTRALINE HCL 50 MG TABLET (FP) PO SCH (10:51)
[2023-06-22] MEDS: PRENATAL VITAMINS W/ FOLIC ACID TABLET (FP) PO SCH (10:51)
[2023-06-22] MEDS: COLCHICINE 0.6 MG CAPSULE PO SCH (10:52)
[2023-06-22] MEDS: THIAMINE HCL 100 MG TABLET (FP) PO SCH (22:32)
[2023-06-22] MEDS: QUEtiapine FUMARATE 200 MG TABLET PO SCH (22:32)
[2023-06-22] MEDS: MELATONIN 5 MG TABLETS PO SCH (22:33)
[2023-06-22] MEDS: METHOCARBAMOL 500 MG TABLET PO PRN (22:34)
[2023-06-23] MEDS ORDERED: LORazepam 0.5 MG TABLET PO PRN
[2023-06-23] MEDS: LORazepam 0.5 MG TABLET PO SCH ×4 (05:59→22:30)
[2023-06-23] MEDS: INSULIN SLIDING SCALE (NOVOLOG) 1 VIAL SQ SCH ×4 (06:01→22:32)
[2023-06-23] MEDS: metFORMIN HCL 500 MG TABLET (FP) PO SCH ×2 (06:01→18:04)
[2023-06-23] MEDS: ASPIRIN 81 MG CHEWABLE TABLETS PO SCH (10:08)
[2023-06-23] MEDS: COLCHICINE 0.6 MG CAPSULE PO SCH (10:09)
[2023-06-23] MEDS: PANTOPRAZOLE 40 MG TABLET PO SCH (10:09)
[2023-06-23] MEDS: PRENATAL VITAMINS W/ FOLIC ACID TABLET (FP) PO SCH (10:09)
[2023-06-23] MEDS: SERTRALINE HCL 50 MG TABLET (FP) PO SCH (10:10)
[2023-06-23] MEDS: ALLOPURINOL 100 MG TABLET (FP) PO SCH ×2 (10:10→22:27)
[2023-06-23] MEDS: METHOCARBAMOL 500 MG TABLET PO PRN ×2 (12:56→22:28)
[2023-06-23] MEDS: hydrOXYzine PAMOATE 25 MG CAPSULE (FP) PO PRN (12:56)
[2023-06-23] MEDS: QUEtiapine FUMARATE 200 MG TABLET PO SCH (22:28)
[2023-06-23] MEDS: THIAMINE HCL 100 MG TABLET (FP) PO SCH (22:28)
[2023-06-23] MEDS: MELATONIN 5 MG TABLETS PO SCH (22:31)
[2023-06-24] MEDS ORDERED: LORazepam 0.5 MG TABLET PO ONE (05:00)
[2023-06-24] MEDS: metFORMIN HCL 500 MG TABLET (FP) PO SCH (06:01)
[2023-06-24] MEDS: INSULIN SLIDING SCALE (NOVOLOG) 1 VIAL SQ SCH (06:01)
[2023-06-24 06:52] VITALS: RESP 18
[2023-06-24] MEDS: PANTOPRAZOLE 40 MG TABLET PO SCH (09:02)
[2023-06-24] MEDS: SERTRALINE HCL 50 MG TABLET (FP) PO SCH (09:02)
[2023-06-24] MEDS: ASPIRIN 81 MG CHEWABLE TABLETS PO SCH (09:02)
[2023-06-24] MEDS: COLCHICINE 0.6 MG CAPSULE PO SCH (09:02)
[2023-06-24] MEDS: PRENATAL VITAMINS W/ FOLIC ACID TABLET (FP) PO SCH (09:02)
[2023-06-24] MEDS: ALLOPURINOL 100 MG TABLET (FP) PO SCH (09:03)
[2023-06-24 09:43] VITALS: BP 155/80; PULSE 85; TEMP 97.5
== END 2023-06-24 10:15 | disposition home or self-care (01) | DRG 774 ==
LOC: YASAS 11:03 → Y6N 13:15
PROVIDERS: ADMIT Allergy & Immunology; ATTEND Surgery
PROC: HZ2ZZZZ Detoxification Services for Substance Abuse Treatment (ICD-10-PCS; principal; 2023-06-20)
DX: F10.230 Alcohol dependence with withdrawal, uncomplicated (principal); F14.20 Cocaine dependence, uncomplicated; F17.210 Nicotine dependence, cigarettes, uncomplicated; F10.282 Alcohol dependence with alcohol-induced sleep disorder; E78.5 Hyperlipidemia, unspecified; I10 Essential (primary) hypertension; K21.9 Gastro-esophageal reflux disease without esophagitis; E11.9 Type 2 diabetes mellitus without complications; Z79.84 Long term (current) use of oral hypoglycemic drugs; E66.9 Obesity, unspecified; Z68.39 Body mass index [BMI] 39.0-39.9, adult; Z87.11 Personal history of peptic ulcer disease; Z88.7 Allergy status to serum and vaccine; Z88.8 Allergy status to other drugs, medicaments and biological substances
CPT/HCPCS: 36415; 80053; 82140; 82962; 85027; 86780; 87635

== ENCOUNTER 2023-07-25 10:11 | Inpatient (IN) | payer OTHER ==
[2023-07-25] MEDS ORDERED: BENZONATATE 200 MG CAPSULE PO PRN (11:34)
[2023-07-25] MEDS ORDERED: DICYCLOMINE HCL 10 MG CAPSULE PO PRN (11:34)
[2023-07-25] MEDS ORDERED: LORazepam 1 MG TABLET PO PRN (11:34)
[2023-07-25] MEDS ORDERED: ONDANSETRON *ODT* 4 MG TABLET SL PRN (11:34)
[2023-07-25] MEDS ORDERED: ACETAMINOPHEN 325 MG TABLET (FP) PO PRN (11:34)
[2023-07-25] MEDS ORDERED: BISMUTH SUBSALICYLATE 524 MG/30 ML PO PRN (11:34)
[2023-07-25] MEDS ORDERED: NALOXONE HCL 0.4 MG/ML VIAL IM PRN (11:34)
[2023-07-25] MEDS ORDERED: NALOXONE HCL (KLOXXADO) 8 MG SPRAY NS PRN (11:34)
[2023-07-25] MEDS ORDERED: LOPERAMIDE HCL 2 MG CAPSULE PO PRN (11:34)
[2023-07-25] MEDS ORDERED: MAGNESIUM HYDROX 2400MG/30ML ORAL SUSPENSION 30 ML CUP PO PRN (11:34)
[2023-07-25] MEDS ORDERED: guaiFENesin 600 MG TABLET.ER (FP) PO PRN (11:34)
[2023-07-25] MEDS ORDERED: IBUPROFEN 400 MG TABLET (FP) PO PRN (11:34)
[2023-07-25] MEDS ORDERED: MAG HYDROX/AL HYDROX/SIMETH 30 ML UNIT-DOSE CUP PO PRN (11:34)
[2023-07-25] MEDS ORDERED: POLYETHYLENE GLYCOL (HEALTHYLAX) 3350 17 GM PACKET PO PRN (11:34)
[2023-07-25] MEDS ORDERED: BENZOCAINE/MENTHOL (CHLORASEPTIC ) LOZENGE MM PRN (11:34)
[2023-07-25] MEDS ORDERED: LORazepam 2 MG TABLET ONE (12:11)
[2023-07-25] MEDS ORDERED: IBUPROFEN 600 MG TABLET (FP) PO ONE (12:11)
[2023-07-25] MEDS ORDERED: PRENATAL VITAMINS W/ FOLIC ACID TABLET (FP) PO ONE (12:11)
[2023-07-25] MEDS: IBUPROFEN 600 MG TABLET (FP) PO PRN ×2 (12:14→22:26)
[2023-07-25] MEDS: PRENATAL VITAMINS W/ FOLIC ACID TABLET (FP) PO SCH (12:15)
[2023-07-25] MEDS: LORazepam 2 MG TABLET PO SCH ×3 (12:15→22:23)
[2023-07-25 13:15] VITALS: BMI 39.3
[2023-07-25] MEDS: MELATONIN 5 MG TABLETS PO SCH (22:23)
[2023-07-25] MEDS: THIAMINE HCL 100 MG TABLET (FP) PO SCH (22:23)
[2023-07-25] MEDS: METHOCARBAMOL 500 MG TABLET PO PRN (22:26)
[2023-07-26] MEDS: LORazepam 2 MG TABLET PO SCH ×4 (05:55→22:11)
[2023-07-26] MEDS: PRENATAL VITAMINS W/ FOLIC ACID TABLET (FP) PO SCH (10:24)
[2023-07-26] MEDS: IBUPROFEN 600 MG TABLET (FP) PO PRN ×2 (10:26→22:17)
[2023-07-26] MEDS: SERTRALINE HCL 50 MG TABLET (FP) PO SCH (10:26)
[2023-07-26 10:29] LABS: POTASSIUM 4.2 mmol/L (3.5-5.1)
[2023-07-26 10:32] LABS: HEMATOCRIT 35.4 % (35.4-49); HEMOGLOBIN 11.9 GM/dL (11.7-16.9); MCH 30.3 pg (25.7-33.7); MCHC 33.8 g/dl (32.0-35.9); MEAN CELL VOLUME 89.7 fl (80-96); MEAN PLT VOLUME 10.8 fl (7.5-11.1); PLATELET COUNT 112 10^3/uL (134-434); RBC 3.94 M/mm3 (4.00-5.60); WHITE BLOOD COUNT 3.6 K/mm3 (4.0-10.0)
[2023-07-26 10:39] LABS: BLOOD UREA NITROGEN 22.9 mg/dL (7-18); CALCIUM 8.7 mg/dL (8.5-10.1)
[2023-07-26 10:40] LABS: ALBUMIN 3.2 g/dl (3.4-5.0)
[2023-07-26 10:44] LABS: BILIRUBIN,TOTAL 0.4 mg/dL (0.2-1); TOT PROT 6.7 g/dl (6.4-8.2)
[2023-07-26] MEDS: COLCHICINE 0.6 MG CAPSULE PO SCH (14:18)
[2023-07-26] MEDS: ASPIRIN 81 MG CHEWABLE TABLETS PO SCH (14:18)
[2023-07-26] MEDS: LACTULOSE 20 GM/30 ML UDC (FOR ORAL USE ONLY) PO SCH ×2 (14:18→22:09)
[2023-07-26] MEDS: PANTOPRAZOLE 40 MG TABLET PO SCH (14:18)
[2023-07-26] MEDS: metFORMIN HCL 500 MG TABLET (FP) PO SCH (17:23)
[2023-07-26] MEDS: QUEtiapine FUMARATE 400 MG TABLET PO SCH (22:09)
[2023-07-26] MEDS: MELATONIN 5 MG TABLETS PO SCH (22:09)
[2023-07-26] MEDS: THIAMINE HCL 100 MG TABLET (FP) PO SCH (22:10)
[2023-07-26] MEDS: ATORVASTATIN CA 80 MG TABLET (FP) PO SCH (22:10)
[2023-07-26] MEDS: hydrOXYzine PAMOATE 25 MG CAPSULE (FP) PO PRN (22:17)
[2023-07-27] MEDS: LACTULOSE 20 GM/30 ML UDC (FOR ORAL USE ONLY) PO SCH ×3 (06:10→21:56)
[2023-07-27] MEDS: LORazepam 1 MG TABLET PO SCH ×4 (06:10→22:01)
[2023-07-27] MEDS: metFORMIN HCL 500 MG TABLET (FP) PO SCH ×2 (06:11→17:25)
[2023-07-27] MEDS: PANTOPRAZOLE 40 MG TABLET PO SCH (10:42)
[2023-07-27] MEDS: PRENATAL VITAMINS W/ FOLIC ACID TABLET (FP) PO SCH (10:42)
[2023-07-27] MEDS: SERTRALINE HCL 50 MG TABLET (FP) PO SCH (10:42)
[2023-07-27] MEDS: ASPIRIN 81 MG CHEWABLE TABLETS PO SCH (10:42)
[2023-07-27] MEDS: COLCHICINE 0.6 MG CAPSULE PO SCH (10:42)
[2023-07-27] MEDS: IBUPROFEN 600 MG TABLET (FP) PO PRN ×2 (11:03→17:43)
[2023-07-27] MEDS ORDERED: ACETAMINOPHEN 325 MG TABLET (FP) PO ONE (21:54)
[2023-07-27] MEDS: ATORVASTATIN CA 80 MG TABLET (FP) PO SCH (21:56)
[2023-07-27] MEDS: THIAMINE HCL 100 MG TABLET (FP) PO SCH (21:56)
[2023-07-27] MEDS: hydrOXYzine PAMOATE 25 MG CAPSULE (FP) PO PRN (21:56)
[2023-07-27] MEDS: METHOCARBAMOL 500 MG TABLET PO PRN (21:57)
[2023-07-27] MEDS: ALLOPURINOL 100 MG TABLET (FP) PO SCH (21:57)
[2023-07-27] MEDS: MELATONIN 5 MG TABLETS PO SCH (21:59)
[2023-07-27] MEDS: QUEtiapine FUMARATE 400 MG TABLET PO SCH (21:59)
[2023-07-27] MEDS ORDERED: ASPIRIN 81 MG CHEWABLE TABLETS PO ONE (22:03)
[2023-07-28] MEDS ORDERED: LORazepam 0.5 MG TABLET PO PRN
[2023-07-28] MEDS: LACTULOSE 20 GM/30 ML UDC (FOR ORAL USE ONLY) PO SCH ×3 (05:23→22:51)
[2023-07-28] MEDS: LORazepam 0.5 MG TABLET PO SCH ×4 (05:23→22:52)
[2023-07-28] MEDS: METHOCARBAMOL 500 MG TABLET PO PRN (05:26)
[2023-07-28] MEDS: IBUPROFEN 600 MG TABLET (FP) PO PRN (05:27)
[2023-07-28] MEDS: metFORMIN HCL 500 MG TABLET (FP) PO SCH ×2 (06:08→17:05)
[2023-07-28] MEDS: ALLOPURINOL 100 MG TABLET (FP) PO SCH ×2 (10:29→22:51)
[2023-07-28] MEDS: SERTRALINE HCL 50 MG TABLET (FP) PO SCH (10:30)
[2023-07-28] MEDS: PRENATAL VITAMINS W/ FOLIC ACID TABLET (FP) PO SCH (10:30)
[2023-07-28] MEDS: ASPIRIN 81 MG CHEWABLE TABLETS PO SCH (10:30)
[2023-07-28] MEDS: PANTOPRAZOLE 40 MG TABLET PO SCH (10:32)
[2023-07-28] MEDS: COLCHICINE 0.6 MG CAPSULE PO SCH (10:32)
[2023-07-28] MEDS ORDERED: cloNIDine HCL 0.1 MG TABLET PO PRN (17:07)
[2023-07-28] MEDS: ATORVASTATIN CA 80 MG TABLET (FP) PO SCH (22:51)
[2023-07-28] MEDS: THIAMINE HCL 100 MG TABLET (FP) PO SCH (22:51)
[2023-07-28] MEDS: QUEtiapine FUMARATE 400 MG TABLET PO SCH (22:51)
[2023-07-28] MEDS: MELATONIN 5 MG TABLETS PO SCH (22:55)
[2023-07-29] MEDS ORDERED: LORazepam 0.5 MG TABLET PO ONE (05:00)
[2023-07-29] MEDS: LACTULOSE 20 GM/30 ML UDC (FOR ORAL USE ONLY) PO SCH (06:18)
[2023-07-29] MEDS: metFORMIN HCL 500 MG TABLET (FP) PO SCH ×2 (06:19→18:13)
[2023-07-29] MEDS: METHOCARBAMOL 500 MG TABLET PO PRN (06:20)
[2023-07-29] MEDS: IBUPROFEN 600 MG TABLET (FP) PO PRN (06:21)
[2023-07-29 08:00] VITALS: BP 106/65; PULSE 130; RESP 17; TEMP 96.8
[2023-07-29] MEDS: ASPIRIN 81 MG CHEWABLE TABLETS PO SCH (09:30)
[2023-07-29] MEDS: COLCHICINE 0.6 MG CAPSULE PO SCH (09:30)
[2023-07-29] MEDS: PRENATAL VITAMINS W/ FOLIC ACID TABLET (FP) PO SCH (09:30)
[2023-07-29] MEDS: SERTRALINE HCL 50 MG TABLET (FP) PO SCH (09:31)
[2023-07-29] MEDS: PANTOPRAZOLE 40 MG TABLET PO SCH (09:31)
[2023-07-29] MEDS: ALLOPURINOL 100 MG TABLET (FP) PO SCH ×2 (09:32→23:04)
[2023-07-29] MEDS: MELATONIN 5 MG TABLETS PO SCH (23:03)
[2023-07-29] MEDS: THIAMINE HCL 100 MG TABLET (FP) PO SCH (23:03)
[2023-07-29] MEDS: QUEtiapine FUMARATE 400 MG TABLET PO SCH (23:03)
[2023-07-29] MEDS: ATORVASTATIN CA 80 MG TABLET (FP) PO SCH (23:03)
== END 2023-07-29 17:00 | disposition short-term general hospital (02) | DRG 775 ==
LOC: YASAS 10:11 → Y3N 11:54
PROVIDERS: ADMIT Allergy & Immunology; ATTEND Surgery
PROC: HZ2ZZZZ Detoxification Services for Substance Abuse Treatment (ICD-10-PCS; principal; 2023-07-25)
DX: F10.230 Alcohol dependence with withdrawal, uncomplicated (principal); F17.210 Nicotine dependence, cigarettes, uncomplicated; F10.982 Alcohol use, unspecified with alcohol-induced sleep disorder; F25.1 Schizoaffective disorder, depressive type; I10 Essential (primary) hypertension; K21.9 Gastro-esophageal reflux disease without esophagitis; E11.39 Type 2 diabetes mellitus with other diabetic ophthalmic complication; Z79.84 Long term (current) use of oral hypoglycemic drugs; M10.9 Gout, unspecified; R79.89 Other specified abnormal findings of blood chemistry; R05.9 Cough, unspecified; R00.0 Tachycardia, unspecified; Z87.11 Personal history of peptic ulcer disease; Z88.7 Allergy status to serum and vaccine
CPT/HCPCS: 0241U-QW; 36415; 80053; 80307; 82140; 82962; 85027; 86780; 87635; 87811

== ENCOUNTER 2023-07-29 08:41 | Inpatient (IN) | payer OTHER ==
[2023-07-29 08:51] VITALS: BMI 39.4
[2023-07-29] MEDS ORDERED: SODIUM CHLORIDE 0.9% 500 ML INFUS.BAG IV ONE (09:07)
[2023-07-29] MEDS ORDERED: ACETAMINOPHEN 1000 MG/100 ML BAG IVPB ONE ×2 (09:08→19:31)
[2023-07-29] MEDS ORDERED: PIPERACILLIN/TAZOB 4.5 GM 4.5 GM/100 ML BAG IVPB ONE ×2 (09:24→12:02)
[2023-07-29] MEDS ORDERED: ACETAMINOPHEN INJECTION 100 ML IVPB ONE ×2 (09:24→19:38)
[2023-07-29] MEDS ORDERED: VANCOMYCIN 1 GRAM (PRE-DOCKED) 2,000 MG/500 ML BAG IVPB ONE (09:24)
[2023-07-29 09:35] LABS: BASO % 0.2 % (0-2.0); EOS % 0.4 % (0-4.5); HEMATOCRIT 33.3 % (35.4-49); HEMOGLOBIN 11.1 GM/dL (11.7-16.9); LYMPH % 9.8 % (8-40); MCHC 33.3 g/dl (32.0-35.9); MEAN CELL VOLUME 89.9 fl (80-96); MEAN PLT VOLUME 10.2 fl (7.5-11.1); NEUT % 74.6 % (42.8-82.8); PLATELET COUNT 137 10^3/uL (134-434); RDW 14.4 % (11.9-15.9); WHITE BLOOD COUNT 8.6 K/mm3 (4.0-10.0)
[2023-07-29 09:48] LABS: INR 1.32 (0.83-1.09); PROTHROMBIN TIME (PATIENT) 15.3 SEC (9.7-13.0)
[2023-07-29 09:55] LABS: VENOUS BASE EXCESS -0.5 mmol/L (-2-2); VENOUS PCO2 45.9 mmHg (38-52); VENOUS PH 7.358 (7.310-7.410)
[2023-07-29 10:00] LABS: CHLORIDE 102 mmol/L (98-107); SODIUM 134 mmol/L (136-145)
[2023-07-29 10:02] LABS: CALCIUM 8.7 mg/dL (8.5-10.1)
[2023-07-29 10:03] LABS: ALBUMIN 2.9 g/dl (3.4-5.0); ANION GAP 9 mmol/L (4-13); BLOOD UREA NITROGEN 29.8 mg/dL (7-18); CO2 24 mmol/L (21-32); GLUCOSE,RANDOM 237 mg/dL (74-106); MAGNESIUM 1.9 mg/dL (1.8-2.4)
[2023-07-29 10:06] LABS: CREATININE 2.2 mg/dL (0.55-1.3); SGOT/AST 19 U/L (15-37); SGPT/ALT 21 U/L (13-61)
[2023-07-29 10:08] LABS: TOT PROT 6.7 g/dl (6.4-8.2)
[2023-07-29 10:09] LABS: ALK PHOS 83 U/L (45-117)
[2023-07-29 10:11] LABS: N-TERMINAL BNP 299.4 pg/ml (5-125)
[2023-07-29 10:55] LABS: LACTIC ACID 3.1 mmol/L (0.4-2.0)
[2023-07-29] MEDS ORDERED: LACTATED RINGERS SOLUTION 1000 ML INFUS.BAG IV ONE ×3 (11:18→19:29)
[2023-07-29] MEDS: PIPERACILLIN/TAZOB 4.5 GM 4.5 GM in DEXTROSE 5%-WATER 100 ML IVPB ONE ×2 (12:30→13:09)
[2023-07-29] MEDS: VANCOMYCIN 2,000 MG in DEXTROSE 5%-WATER - 500 ML IVPB ONE ×3 (13:00→16:55)
[2023-07-29 13:07] LABS: EPI CELLS 3 /uL (0-25.1); HYALINE CASTS 1 /uL (0-3.1); PH,URINE 5.5 (5.0-8.0); URINE APPEARANCE CLOUDY; URINE BACTERIA 120 /uL (0-1359); URINE BILIRUBIN NEGATIVE (NEGATIVE); URINE COLOR YELLOW; URINE GLUCOSE (UA) NEGATIVE (NEGATIVE); URINE KETONE NEGATIVE (NEGATIVE); URINE LEUK ESTERASE 2+ (NEGATIVE); URINE NITRITE NEGATIVE (NEGATIVE); URINE PROTEIN 1+ (NEGATIVE); URINE RBC 44 /uL (0-23.9); URINE WBC 732 /uL (0-25.8)
[2023-07-29 13:14] LABS: LACTIC ACID 2.1 mmol/L (0.4-2.0)
[2023-07-29] MEDS ORDERED: LACTATED RINGERS SOLUTION 1,000 ML IV SCH (16:30)
[2023-07-29] MEDS: VANCOMYCIN/WATER 2 GRAMS 2,000 MG/400 ML PIGGYBACK IVPB SCH ×4 (16:45→16:55)
[2023-07-29] MEDS: INSULIN SLIDING SCALE (NOVOLOG) 1 VIAL SQ SCH (16:46)
[2023-07-29] MEDS ORDERED: PIPERACILLIN/TAZOB 3.375 GM 3.375 GM/50 ML BAG IVPB ONE (16:58)
[2023-07-29] MEDS ORDERED: VANCOMYCIN/WATER 2 GRAMS 2,000 MG/400 ML PIGGYBACK IVPB SCH (17:00)
[2023-07-29] MEDS ORDERED: ACETAMINOPHEN 325 MG TABLET (FP) ONE (17:01)
[2023-07-29] MEDS: ACETAMINOPHEN 325 MG TABLET (FP) PO PRN (17:13)
[2023-07-29] MEDS: PIPERACILLIN/TAZOB 3.375 GM 3.375 GM in DEXTROSE 5%-WATER - 50 ML IVPB SCH (17:13)
[2023-07-29] MEDS ORDERED: PIPERACILLIN/TAZOB 3.375 GM 3.375 GM in DEXTROSE 5%-WATER - 50 ML IVPB SCH (18:00)
[2023-07-29] MEDS: LACTATED RINGERS SOLUTION 1,000 ML IV SCH (19:38)
[2023-07-29] MEDS ORDERED: BENZOCAINE/MENTH/CETYLPYRD CL 1 EACH LOZENGE MM ONE (20:55)
[2023-07-29] MEDS ORDERED: QUEtiapine FUMARATE 100 MG TABLET (FP) ONE (21:03)
[2023-07-29] MEDS ORDERED: ATORVASTATIN CA 80 MG TABLET (FP) ONE (21:03)
[2023-07-29] MEDS ORDERED: HEPARIN NA (PORCINE) 5,000 UNITS/ML 1ML VIAL ONE (21:03)
[2023-07-29] MEDS: ATORVASTATIN CA 80 MG TABLET (FP) PO SCH (21:09)
[2023-07-29] MEDS: HEPARIN NA (PORCINE) 5,000 UNITS/ML 1ML VIAL SQ SCH (21:09)
[2023-07-29] MEDS: QUEtiapine FUMARATE 200 MG TABLET PO SCH (21:09)
[2023-07-29] MEDS: BENZOCAINE/MENTH/CETYLPYRD CL 1 EACH LOZENGE MM PRN (21:32)
[2023-07-29] MEDS ORDERED: VANCOMYCIN 1,000 MG in DEXTROSE 5%-WATER - 250 ML IVPB SCH (22:00)
[2023-07-30 00:08] VITALS: RESP 18
[2023-07-30] MEDS: PIPERACILLIN/TAZOB 3.375 GM 3.375 GM in DEXTROSE 5%-WATER - 50 ML IVPB SCH ×3 (01:16→17:39)
[2023-07-30] MEDS: VANCOMYCIN/WATER 2 GRAMS 2,000 MG/400 ML PIGGYBACK IVPB SCH ×2 (03:00→14:06)
[2023-07-30] MEDS: HEPARIN NA (PORCINE) 5,000 UNITS/ML 1ML VIAL SQ SCH ×3 (05:47→22:49)
[2023-07-30] MEDS: ACETAMINOPHEN 325 MG TABLET (FP) PO PRN ×3 (05:48→22:54)
[2023-07-30] MEDS: INSULIN SLIDING SCALE (NOVOLOG) 1 VIAL SQ SCH ×3 (06:44→17:39)
[2023-07-30 09:36] LABS: BASO % 0.3 % (0-2.0); HEMOGLOBIN 9.8 GM/dL (11.7-16.9); LYMPH % 9.7 % (8-40); MCHC 33.9 g/dl (32.0-35.9); MEAN CELL VOLUME 88.4 fl (80-96); MEAN PLT VOLUME 10.6 fl (7.5-11.1); MONO % 13.8 % (3.8-10.2); NEUT % 74.2 % (42.8-82.8); PLATELET COUNT 122 10^3/uL (134-434); RBC 3.28 M/mm3 (4.00-5.60); WHITE BLOOD COUNT 5.3 K/mm3 (4.0-10.0)
[2023-07-30 09:40] LABS: INR 1.36 (0.83-1.09); PROTHROMBIN TIME (PATIENT) 15.7 SEC (9.7-13.0)
[2023-07-30 09:43] LABS: ACTIVATED PTT 28.3 SECONDS (25.2-36.5)
[2023-07-30 10:07] LABS: CALCIUM 7.9 mg/dL (8.5-10.1)
[2023-07-30 10:09] LABS: ALBUMIN 2.4 g/dl (3.4-5.0); BLOOD UREA NITROGEN 24.5 mg/dL (7-18); CREATININE 1.3 mg/dL (0.55-1.3)
[2023-07-30 10:10] LABS: TOT PROT 5.8 g/dl (6.4-8.2)
[2023-07-30 10:11] LABS: BILIRUBIN,TOTAL 0.5 mg/dL (0.2-1); PHOSPHOROUS 2.9 mg/dL (2.5-4.9)
[2023-07-30 10:17] LABS: N-TERMINAL BNP 260.3 pg/ml (5-125)
[2023-07-30] MEDS: PANTOPRAZOLE 40 MG TABLET PO SCH (11:09)
[2023-07-30] MEDS: ASPIRIN 81 MG CHEWABLE TABLETS PO SCH (11:09)
[2023-07-30] MEDS: SERTRALINE HCL 50 MG TABLET (FP) PO SCH (11:10)
[2023-07-30] MEDS: LACTATED RINGERS SOLUTION 1,000 ML IV SCH (18:23)
[2023-07-30] MEDS: ATORVASTATIN CA 80 MG TABLET (FP) PO SCH (22:49)
[2023-07-30] MEDS: BENZOCAINE/MENTH/CETYLPYRD CL 1 EACH LOZENGE MM PRN (22:58)
[2023-07-30] MEDS: QUEtiapine FUMARATE 200 MG TABLET PO SCH (23:06)
[2023-07-31] MEDS: PIPERACILLIN/TAZOB 3.375 GM 3.375 GM in DEXTROSE 5%-WATER - 50 ML IVPB SCH ×2 (01:14→11:34)
[2023-07-31] MEDS: ACETAMINOPHEN 325 MG TABLET (FP) PO PRN (05:04)
[2023-07-31] MEDS: HEPARIN NA (PORCINE) 5,000 UNITS/ML 1ML VIAL SQ SCH (07:57)
[2023-07-31] MEDS: INSULIN SLIDING SCALE (NOVOLOG) 1 VIAL SQ SCH ×2 (07:57→12:09)
[2023-07-31] MEDS: ASPIRIN 81 MG CHEWABLE TABLETS PO SCH (10:36)
[2023-07-31] MEDS: SERTRALINE HCL 50 MG TABLET (FP) PO SCH (10:37)
[2023-07-31] MEDS: PANTOPRAZOLE 40 MG TABLET PO SCH (10:37)
[2023-07-31 12:39] VITALS: BP 143/97; PULSE 96; TEMP 98.2
[2023-07-31] MEDS ORDERED: CEFTRIAXONE 1 GM in DEXTROSE 5%-WATER - 50 ML IVPB SCH (15:30)
[2023-07-31] MEDS ORDERED: CEFUROXIME AXETIL 500 MG TABLET PO SCH (22:00)
[2023-07-31] MEDS ORDERED: MELATONIN 5 MG TABLETS PO SCH (22:00)
[2023-07-31] MEDS ORDERED: traZODone HCL 100 MG TABLET (FP) PO SCH (22:00)
[2023-07-31] MEDS ORDERED: CEFPODOXIME PROXETIL 100 MG TABLET PO SCH (22:00)
[2023-08-01] MEDS ORDERED: TAMSULOSIN HCL 0.4 MG CAP PO SCH (08:30)
== END 2023-07-31 13:09 | disposition other institution (70) | DRG 720 ==
LOC: JER 08:41 → JERBED 16:03 → J5S 23:35
PROVIDERS: ADMIT Internal Medicine; ATTEND Psychiatry & Neurology Pain Medicine
DX: A41.9 Sepsis, unspecified organism (principal); R65.21 Severe sepsis with septic shock; N17.9 Acute kidney failure, unspecified; E11.9 Type 2 diabetes mellitus without complications; E78.5 Hyperlipidemia, unspecified; F10.239 Alcohol dependence with withdrawal, unspecified; I10 Essential (primary) hypertension; K21.9 Gastro-esophageal reflux disease without esophagitis; N39.0 Urinary tract infection, site not specified
CPT/HCPCS: 0241U-QW; 36415; 70450-TC; 71045-TC-FY; 80053; 81003; 82140; 82550; 82553; 82570; 82803; 82962; 83605; 83735; 83880; 84100; 84156; 84300; 84484; 85025; 85610; 85730; 86850; 86900; 86901; 87040; 87086; 87186; 93005; 93010; 97116-GP; 97161-GP; 99285-25; J1644

== ENCOUNTER 2023-07-31 13:56 | Inpatient (IN) | payer OTHER ==
[2023-07-31 15:32] VITALS: BMI 39.6
[2023-07-31] MEDS ORDERED: COLLOIDAL OATMEAL 1 BAR EACH TP PRN (15:51)
[2023-07-31] MEDS ORDERED: ACETAMINOPHEN 325 MG TABLET (FP) PO PRN (15:51)
[2023-07-31] MEDS ORDERED: NALOXONE HCL (KLOXXADO) 8 MG SPRAY NS PRN (15:51)
[2023-07-31] MEDS ORDERED: POLYETHYLENE GLYCOL (HEALTHYLAX) 3350 17 GM PACKET PO PRN (15:51)
[2023-07-31] MEDS ORDERED: BENZONATATE 200 MG CAPSULE PO PRN (15:51)
[2023-07-31] MEDS ORDERED: LOPERAMIDE HCL 2 MG CAPSULE PO PRN (15:51)
[2023-07-31] MEDS ORDERED: NALOXONE HCL 0.4 MG/ML VIAL IM PRN (15:51)
[2023-07-31] MEDS ORDERED: hydrOXYzine PAMOATE 25 MG CAPSULE (FP) PO PRN (15:51)
[2023-07-31] MEDS ORDERED: guaiFENesin 600 MG TABLET.ER (FP) PO PRN (15:51)
[2023-07-31] MEDS ORDERED: MAGNESIUM HYDROX 2400MG/30ML ORAL SUSPENSION 30 ML CUP PO PRN (15:51)
[2023-07-31] MEDS: metFORMIN HCL 500 MG TABLET (FP) PO SCH (17:56)
[2023-07-31] MEDS: NICOTINE 14 MG/24 HOURS TOPICAL PATCH TD SCH (17:57)
[2023-07-31] MEDS: PRENATAL VITAMINS W/ FOLIC ACID TABLET (FP) PO SCH (17:58)
[2023-07-31] MEDS: MELATONIN 5 MG TABLETS PO SCH (21:31)
[2023-07-31] MEDS: THIAMINE HCL 100 MG TABLET (FP) PO SCH (21:31)
[2023-07-31] MEDS ORDERED: ATORVASTATIN CA 40 MG TABLET (FP) ONE (21:32)
[2023-07-31] MEDS: CEFUROXIME AXETIL 500 MG TABLET PO SCH (21:34)
[2023-07-31] MEDS: ATORVASTATIN CA 80 MG TABLET (FP) PO SCH (21:34)
[2023-07-31] MEDS: ALLOPURINOL 100 MG TABLET (FP) PO SCH (22:37)
[2023-08-01] MEDS: metFORMIN HCL 500 MG TABLET (FP) PO SCH ×2 (06:50→16:38)
[2023-08-01] MEDS: TAMSULOSIN HCL 0.4 MG CAP PO SCH (09:43)
[2023-08-01] MEDS: PRENATAL VITAMINS W/ FOLIC ACID TABLET (FP) PO SCH (09:43)
[2023-08-01] MEDS: COLCHICINE 0.6 MG TAB PO SCH (09:44)
[2023-08-01] MEDS: ASPIRIN 81 MG CHEWABLE TABLETS PO SCH (09:44)
[2023-08-01] MEDS: CEFUROXIME AXETIL 500 MG TABLET PO SCH ×2 (09:44→21:17)
[2023-08-01] MEDS: ALLOPURINOL 100 MG TABLET (FP) PO SCH ×2 (09:44→21:17)
[2023-08-01] MEDS: NICOTINE 14 MG/24 HOURS TOPICAL PATCH TD SCH (09:45)
[2023-08-01] MEDS: MAG HYDROX/AL HYDROX/SIMETH 30 ML UNIT-DOSE CUP PO PRN (09:47)
[2023-08-01] MEDS: SERTRALINE HCL 50 MG TABLET (FP) PO SCH (12:03)
[2023-08-01] MEDS: QUEtiapine FUMARATE 100 MG TABLET (FP) PO SCH (12:03)
[2023-08-01] MEDS ORDERED: ATORVASTATIN CA 40 MG TABLET (FP) ONE (19:54)
[2023-08-01] MEDS: ATORVASTATIN CA 80 MG TABLET (FP) PO SCH (21:17)
[2023-08-01] MEDS: THIAMINE HCL 100 MG TABLET (FP) PO SCH (21:17)
[2023-08-01] MEDS: MELATONIN 5 MG TABLETS PO SCH (21:18)
[2023-08-01] MEDS: QUEtiapine FUMARATE 400 MG TABLET PO SCH (21:20)
[2023-08-01] MEDS: IBUPROFEN 400 MG TABLET (FP) PO PRN (21:20)
[2023-08-01] MEDS: BENZOCAINE/MENTHOL (CHLORASEPTIC ) LOZENGE MM PRN (21:21)
[2023-08-02] MEDS: metFORMIN HCL 500 MG TABLET (FP) PO SCH ×2 (06:40→16:45)
[2023-08-02] MEDS: QUEtiapine FUMARATE 100 MG TABLET (FP) PO SCH (09:57)
[2023-08-02] MEDS: SERTRALINE HCL 50 MG TABLET (FP) PO SCH (09:57)
[2023-08-02] MEDS: ASPIRIN 81 MG CHEWABLE TABLETS PO SCH (09:57)
[2023-08-02] MEDS: PRENATAL VITAMINS W/ FOLIC ACID TABLET (FP) PO SCH (09:58)
[2023-08-02] MEDS: TAMSULOSIN HCL 0.4 MG CAP PO SCH (09:58)
[2023-08-02] MEDS: NICOTINE 14 MG/24 HOURS TOPICAL PATCH TD SCH (09:59)
[2023-08-02] MEDS: ALLOPURINOL 100 MG TABLET (FP) PO SCH ×2 (13:38→21:35)
[2023-08-02] MEDS: COLCHICINE 0.6 MG TAB PO SCH (13:38)
[2023-08-02] MEDS: CEFUROXIME AXETIL 500 MG TABLET PO SCH ×2 (13:39→21:35)
[2023-08-02] MEDS: IBUPROFEN 600 MG TABLET (FP) PO PRN (16:51)
[2023-08-02] MEDS ORDERED: ATORVASTATIN CA 40 MG TABLET (FP) ONE (19:55)
[2023-08-02] MEDS: THIAMINE HCL 100 MG TABLET (FP) PO SCH (21:35)
[2023-08-02] MEDS: MELATONIN 5 MG TABLETS PO SCH (21:35)
[2023-08-02] MEDS: ATORVASTATIN CA 80 MG TABLET (FP) PO SCH (21:35)
[2023-08-02] MEDS: QUEtiapine FUMARATE 400 MG TABLET PO SCH (21:35)
[2023-08-03] MEDS: metFORMIN HCL 500 MG TABLET (FP) PO SCH ×2 (06:42→16:52)
[2023-08-03 08:19] LABS: EPI CELLS 19 /uL (0-25.1); HYALINE CASTS 2 /uL (0-3.1); PH,URINE 7.5 (5.0-8.0); URINE APPEARANCE CLEAR; URINE BACTERIA 3 /uL (0-1359); URINE BILIRUBIN NEGATIVE (NEGATIVE); URINE COLOR YELLOW; URINE GLUCOSE (UA) NEGATIVE (NEGATIVE); URINE KETONE NEGATIVE (NEGATIVE); URINE LEUK ESTERASE TRACE (NEGATIVE); URINE NITRITE NEGATIVE (NEGATIVE); URINE PROTEIN NEGATIVE (NEGATIVE); URINE RBC 11 /uL (0-23.9); URINE UROBILINOGEN 0.2 mg/dL (0.2-1.0); URINE WBC 30 /uL (0-25.8)
[2023-08-03] MEDS: TAMSULOSIN HCL 0.4 MG CAP PO SCH (09:45)
[2023-08-03] MEDS: SERTRALINE HCL 50 MG TABLET (FP) PO SCH (09:45)
[2023-08-03] MEDS: COLCHICINE 0.6 MG TAB PO SCH (09:45)
[2023-08-03] MEDS: QUEtiapine FUMARATE 100 MG TABLET (FP) PO SCH (09:45)
[2023-08-03] MEDS: ALLOPURINOL 100 MG TABLET (FP) PO SCH ×2 (09:46→21:44)
[2023-08-03] MEDS: ASPIRIN 81 MG CHEWABLE TABLETS PO SCH (09:46)
[2023-08-03] MEDS: CEFUROXIME AXETIL 500 MG TABLET PO SCH ×2 (09:46→21:43)
[2023-08-03] MEDS: IBUPROFEN 400 MG TABLET (FP) PO PRN (09:47)
[2023-08-03] MEDS: PRENATAL VITAMINS W/ FOLIC ACID TABLET (FP) PO SCH (09:49)
[2023-08-03] MEDS: NICOTINE 14 MG/24 HOURS TOPICAL PATCH TD SCH (09:50)
[2023-08-03] MEDS: IBUPROFEN 600 MG TABLET (FP) PO PRN ×2 (16:52→21:43)
[2023-08-03] MEDS ORDERED: ATORVASTATIN CA 40 MG TABLET (FP) ONE (20:29)
[2023-08-03] MEDS: QUEtiapine FUMARATE 400 MG TABLET PO SCH (21:43)
[2023-08-03] MEDS: ATORVASTATIN CA 80 MG TABLET (FP) PO SCH (21:44)
[2023-08-03] MEDS: THIAMINE HCL 100 MG TABLET (FP) PO SCH (21:44)
[2023-08-03] MEDS: MELATONIN 5 MG TABLETS PO SCH (21:44)
[2023-08-03] MEDS: BENZOCAINE/MENTHOL (CHLORASEPTIC ) LOZENGE MM PRN (21:45)
[2023-08-04] MEDS: metFORMIN HCL 500 MG TABLET (FP) PO SCH ×2 (06:33→17:52)
[2023-08-04] MEDS: IBUPROFEN 600 MG TABLET (FP) PO PRN ×2 (06:33→21:34)
[2023-08-04] MEDS: TAMSULOSIN HCL 0.4 MG CAP PO SCH (09:36)
[2023-08-04] MEDS: ASPIRIN 81 MG CHEWABLE TABLETS PO SCH (10:12)
[2023-08-04] MEDS: ALLOPURINOL 100 MG TABLET (FP) PO SCH ×2 (10:12→21:33)
[2023-08-04] MEDS: COLCHICINE 0.6 MG TAB PO SCH (10:13)
[2023-08-04] MEDS: PRENATAL VITAMINS W/ FOLIC ACID TABLET (FP) PO SCH (10:13)
[2023-08-04] MEDS: SERTRALINE HCL 50 MG TABLET (FP) PO SCH (10:13)
[2023-08-04] MEDS: CEFUROXIME AXETIL 500 MG TABLET PO SCH ×2 (10:13→21:33)
[2023-08-04] MEDS: QUEtiapine FUMARATE 100 MG TABLET (FP) PO SCH (10:13)
[2023-08-04] MEDS: NICOTINE 14 MG/24 HOURS TOPICAL PATCH TD SCH (10:14)
[2023-08-04] MEDS ORDERED: ATORVASTATIN CA 40 MG TABLET (FP) ONE (19:16)
[2023-08-04] MEDS: ATORVASTATIN CA 80 MG TABLET (FP) PO SCH (21:33)
[2023-08-04] MEDS: MELATONIN 5 MG TABLETS PO SCH (21:33)
[2023-08-04] MEDS: THIAMINE HCL 100 MG TABLET (FP) PO SCH (21:33)
[2023-08-04] MEDS: QUEtiapine FUMARATE 400 MG TABLET PO SCH (21:33)
[2023-08-05] MEDS: metFORMIN HCL 500 MG TABLET (FP) PO SCH ×2 (06:02→16:46)
[2023-08-05] MEDS: QUEtiapine FUMARATE 100 MG TABLET (FP) PO SCH (10:11)
[2023-08-05] MEDS: PRENATAL VITAMINS W/ FOLIC ACID TABLET (FP) PO SCH (10:11)
[2023-08-05] MEDS: ASPIRIN 81 MG CHEWABLE TABLETS PO SCH (10:11)
[2023-08-05] MEDS: SERTRALINE HCL 50 MG TABLET (FP) PO SCH (10:12)
[2023-08-05] MEDS: TAMSULOSIN HCL 0.4 MG CAP PO SCH (10:12)
[2023-08-05] MEDS: MAG HYDROX/AL HYDROX/SIMETH 30 ML UNIT-DOSE CUP PO PRN (10:18)
[2023-08-05] MEDS: NICOTINE 14 MG/24 HOURS TOPICAL PATCH TD SCH (10:32)
[2023-08-05] MEDS: CEFUROXIME AXETIL 500 MG TABLET PO SCH ×2 (10:35→21:36)
[2023-08-05] MEDS: COLCHICINE 0.6 MG TAB PO SCH (10:35)
[2023-08-05] MEDS: ALLOPURINOL 100 MG TABLET (FP) PO SCH ×2 (10:35→21:36)
[2023-08-05] MEDS ORDERED: ATORVASTATIN CA 40 MG TABLET (FP) ONE (19:44)
[2023-08-05] MEDS: ATORVASTATIN CA 80 MG TABLET (FP) PO SCH (21:36)
[2023-08-05] MEDS: THIAMINE HCL 100 MG TABLET (FP) PO SCH (21:36)
[2023-08-05] MEDS: MELATONIN 5 MG TABLETS PO SCH (21:37)
[2023-08-05] MEDS: QUEtiapine FUMARATE 400 MG TABLET PO SCH (21:37)
[2023-08-05] MEDS: IBUPROFEN 600 MG TABLET (FP) PO PRN (21:38)
[2023-08-06] MEDS: metFORMIN HCL 500 MG TABLET (FP) PO SCH (06:45)
[2023-08-06 07:01] VITALS: RESP 18; TEMP 97.6
[2023-08-06] MEDS: PRENATAL VITAMINS W/ FOLIC ACID TABLET (FP) PO SCH (09:35)
[2023-08-06] MEDS: QUEtiapine FUMARATE 100 MG TABLET (FP) PO SCH (09:35)
[2023-08-06] MEDS: SERTRALINE HCL 50 MG TABLET (FP) PO SCH (09:35)
[2023-08-06] MEDS: CEFUROXIME AXETIL 500 MG TABLET PO SCH (09:35)
[2023-08-06] MEDS: ASPIRIN 81 MG CHEWABLE TABLETS PO SCH (09:35)
[2023-08-06] MEDS: TAMSULOSIN HCL 0.4 MG CAP PO SCH (09:36)
[2023-08-06] MEDS: ALLOPURINOL 100 MG TABLET (FP) PO SCH (09:36)
[2023-08-06] MEDS: COLCHICINE 0.6 MG TAB PO SCH (09:36)
[2023-08-06] MEDS: NICOTINE 14 MG/24 HOURS TOPICAL PATCH TD SCH (09:38)
[2023-08-06 11:40] VITALS: BP 121/76; PULSE 94
== END 2023-08-06 11:58 | disposition left against medical advice (07) | DRG 770 ==
LOC: YASAS 13:56 → Y5N 16:37
PROVIDERS: ADMIT Allergy & Immunology; ATTEND Psychiatry & Neurology Pain Medicine
PROC: HZ42ZZZ Group Counseling for Substance Abuse Treatment, Cognitive-Behavioral (ICD-10-PCS; principal; 2023-07-31)
DX: F10.20 Alcohol dependence, uncomplicated (principal); F17.210 Nicotine dependence, cigarettes, uncomplicated; F20.9 Schizophrenia, unspecified; F32.A Depression, unspecified; E78.00 Pure hypercholesterolemia, unspecified; G47.33 Obstructive sleep apnea (adult) (pediatric); I10 Essential (primary) hypertension; K21.9 Gastro-esophageal reflux disease without esophagitis; M10.9 Gout, unspecified; E11.9 Type 2 diabetes mellitus without complications; Z79.84 Long term (current) use of oral hypoglycemic drugs; Z87.11 Personal history of peptic ulcer disease; Z88.7 Allergy status to serum and vaccine
CPT/HCPCS: 36415; 81003; 82140; 82962; 86803

== ENCOUNTER 2023-09-27 10:40 | Inpatient (IN) | payer OTHER ==
[2023-09-27 11:15] VITALS: BMI 40.4
[2023-09-27] MEDS ORDERED: chlordiazePOXIDE HCL 25 MG CAPSULE PO PRN (11:24)
[2023-09-27] MEDS ORDERED: BENZONATATE 200 MG CAPSULE PO PRN (11:37)
[2023-09-27] MEDS ORDERED: POLYETHYLENE GLYCOL (HEALTHYLAX) 3350 17 GM PACKET PO PRN (11:37)
[2023-09-27] MEDS ORDERED: BISMUTH SUBSALICYLATE 262 MG/15 ML BTL PO PRN (11:37)
[2023-09-27] MEDS ORDERED: NICOTINE POLACRILEX 2 MG GUM BUC PRN (11:37)
[2023-09-27] MEDS ORDERED: guaiFENesin 600 MG TABLET.ER (FP) PO PRN (11:37)
[2023-09-27] MEDS ORDERED: P-EPHED 60MG/TRIPROLIDI 2.5MG TABLET PO PRN (11:37)
[2023-09-27] MEDS ORDERED: ACETAMINOPHEN 325 MG TABLET (FP) PO PRN (11:37)
[2023-09-27] MEDS ORDERED: MAGNESIUM HYDROX 2400MG/30ML ORAL SUSPENSION 30 ML CUP PO PRN (11:37)
[2023-09-27] MEDS ORDERED: BENZOCAINE/MENTHOL (CHLORASEPTIC ) LOZENGE MM PRN (11:37)
[2023-09-27] MEDS ORDERED: ONDANSETRON *ODT* 4 MG TABLET SL PRN (11:37)
[2023-09-27] MEDS ORDERED: MAG HYDROX/AL HYDROX/SIMETH 30 ML UNIT-DOSE CUP PO PRN (11:37)
[2023-09-27] MEDS ORDERED: LOPERAMIDE HCL 2 MG CAPSULE PO PRN (11:37)
[2023-09-27] MEDS ORDERED: DICYCLOMINE HCL 10 MG CAPSULE PO PRN (11:37)
[2023-09-27] MEDS ORDERED: IBUPROFEN 400 MG TABLET (FP) PO PRN (11:37)
[2023-09-27] MEDS ORDERED: METOPROLOL TARTRATE 25 MG TABLET (FP) ONE (11:50)
[2023-09-27] MEDS: ASPIRIN 81 MG CHEWABLE TABLETS PO SCH (12:06)
[2023-09-27] MEDS: ARTIFICIAL TEARS OPHTHALMIC DROPS OU SCH ×2 (13:48→22:20)
[2023-09-27] MEDS: IBUPROFEN 600 MG TABLET (FP) PO PRN (13:49)
[2023-09-27] MEDS: metFORMIN HCL 500 MG TABLET (FP) PO SCH (16:55)
[2023-09-27] MEDS: chlordiazePOXIDE HCL 25 MG CAPSULE PO SCH ×2 (17:33→22:16)
[2023-09-27] MEDS ORDERED: MELATONIN 5 MG TABLETS PO SCH (22:00)
[2023-09-27] MEDS: ALLOPURINOL 100 MG TABLET (FP) PO SCH (22:15)
[2023-09-27] MEDS: ATORVASTATIN CA 80 MG TABLET (FP) PO SCH (22:15)
[2023-09-27] MEDS: QUEtiapine FUMARATE 400 MG TABLET PO SCH (22:15)
[2023-09-27] MEDS: THIAMINE HCL 100 MG TABLET (FP) PO SCH (22:17)
[2023-09-28] MEDS: chlordiazePOXIDE HCL 25 MG CAPSULE PO SCH ×4 (06:00→22:19)
[2023-09-28] MEDS: ARTIFICIAL TEARS OPHTHALMIC DROPS OU SCH ×3 (06:01→22:49)
[2023-09-28] MEDS: metFORMIN HCL 500 MG TABLET (FP) PO SCH ×2 (06:02→17:25)
[2023-09-28] MEDS: TAMSULOSIN HCL 0.4 MG CAP PO SCH (09:29)
[2023-09-28] MEDS: COLCHICINE 0.6 MG CAPSULE PO SCH (10:29)
[2023-09-28] MEDS: ASPIRIN 81 MG CHEWABLE TABLETS PO SCH (10:29)
[2023-09-28] MEDS: PRENATAL VITAMINS W/ FOLIC ACID TABLET (FP) PO SCH (10:29)
[2023-09-28] MEDS: SERTRALINE HCL 50 MG TABLET (FP) PO SCH (10:30)
[2023-09-28] MEDS: ALLOPURINOL 100 MG TABLET (FP) PO SCH ×2 (10:30→22:19)
[2023-09-28 10:52] LABS: ALBUMIN 3.4 g/dl (3.4-5.0); CALCIUM 8.9 mg/dL (8.5-10.1)
[2023-09-28 10:54] LABS: BLOOD UREA NITROGEN 14.1 mg/dL (7-18); HEMATOCRIT 37.3 % (35.4-49); HEMOGLOBIN 12.1 GM/dL (11.7-16.9); MCH 29.9 pg (25.7-33.7); MCHC 32.5 g/dl (32.0-35.9); MEAN CELL VOLUME 92.2 fl (80-96); MEAN PLT VOLUME 10.7 fl (7.5-11.1); PLATELET COUNT 125 10^3/uL (134-434); RBC 4.04 M/mm3 (4.00-5.60); RDW 16.7 % (11.9-15.9); WHITE BLOOD COUNT 3.3 K/mm3 (4.0-10.0)
[2023-09-28 10:55] LABS: CREATININE 1.1 mg/dL (0.55-1.3)
[2023-09-28 10:57] LABS: BILIRUBIN,TOTAL 0.3 mg/dL (0.2-1); TOT PROT 6.8 g/dl (6.4-8.2)
[2023-09-28] MEDS: IBUPROFEN 600 MG TABLET (FP) PO PRN (17:39)
[2023-09-28] MEDS: THIAMINE HCL 100 MG TABLET (FP) PO SCH (22:19)
[2023-09-28] MEDS: ATORVASTATIN CA 80 MG TABLET (FP) PO SCH (22:19)
[2023-09-28] MEDS: QUEtiapine FUMARATE 400 MG TABLET PO SCH (22:19)
[2023-09-28] MEDS: METHOCARBAMOL 500 MG TABLET PO PRN (22:20)
[2023-09-29] MEDS: chlordiazePOXIDE HCL 25 MG CAPSULE PO SCH ×4 (05:23→22:32)
[2023-09-29] MEDS: metFORMIN HCL 500 MG TABLET (FP) PO SCH ×2 (06:23→17:47)
[2023-09-29] MEDS: ARTIFICIAL TEARS OPHTHALMIC DROPS OU SCH ×3 (06:46→22:27)
[2023-09-29] MEDS: TAMSULOSIN HCL 0.4 MG CAP PO SCH (09:08)
[2023-09-29] MEDS: COLCHICINE 0.6 MG CAPSULE PO SCH (10:12)
[2023-09-29] MEDS: ASPIRIN 81 MG CHEWABLE TABLETS PO SCH (10:12)
[2023-09-29] MEDS: PRENATAL VITAMINS W/ FOLIC ACID TABLET (FP) PO SCH (10:12)
[2023-09-29] MEDS: SERTRALINE HCL 50 MG TABLET (FP) PO SCH (10:13)
[2023-09-29] MEDS: ALLOPURINOL 100 MG TABLET (FP) PO SCH ×2 (10:13→22:30)
[2023-09-29] MEDS: METHOCARBAMOL 500 MG TABLET PO PRN ×2 (10:15→22:30)
[2023-09-29] MEDS: ATORVASTATIN CA 80 MG TABLET (FP) PO SCH (22:30)
[2023-09-29] MEDS: QUEtiapine FUMARATE 400 MG TABLET PO SCH (22:30)
[2023-09-29] MEDS: THIAMINE HCL 100 MG TABLET (FP) PO SCH (22:30)
[2023-09-29] MEDS: IBUPROFEN 600 MG TABLET (FP) PO PRN (22:31)
[2023-09-30] MEDS ORDERED: chlordiazePOXIDE HCL 10 MG CAPSULE PO PRN
[2023-09-30] MEDS: chlordiazePOXIDE HCL 10 MG CAPSULE PO SCH ×4 (05:38→23:21)
[2023-09-30] MEDS: ARTIFICIAL TEARS OPHTHALMIC DROPS OU SCH ×3 (05:38→21:47)
[2023-09-30] MEDS: metFORMIN HCL 500 MG TABLET (FP) PO SCH ×2 (06:12→16:45)
[2023-09-30] MEDS: TAMSULOSIN HCL 0.4 MG CAP PO SCH (08:50)
[2023-09-30] MEDS: ALLOPURINOL 100 MG TABLET (FP) PO SCH ×2 (10:09→21:48)
[2023-09-30] MEDS: ASPIRIN 81 MG CHEWABLE TABLETS PO SCH (10:09)
[2023-09-30] MEDS: PRENATAL VITAMINS W/ FOLIC ACID TABLET (FP) PO SCH (10:09)
[2023-09-30] MEDS: COLCHICINE 0.6 MG CAPSULE PO SCH (10:09)
[2023-09-30] MEDS: SERTRALINE HCL 50 MG TABLET (FP) PO SCH (10:10)
[2023-09-30] MEDS: QUEtiapine FUMARATE 400 MG TABLET PO SCH (21:47)
[2023-09-30] MEDS: ATORVASTATIN CA 80 MG TABLET (FP) PO SCH (21:48)
[2023-09-30] MEDS: THIAMINE HCL 100 MG TABLET (FP) PO SCH (21:48)
[2023-09-30] MEDS: METHOCARBAMOL 500 MG TABLET PO PRN (21:48)
[2023-10-01] MEDS ORDERED: chlordiazePOXIDE HCL 10 MG CAPSULE PO SCH (05:00)
[2023-10-01] MEDS: ARTIFICIAL TEARS OPHTHALMIC DROPS OU SCH ×2 (05:35→13:32)
[2023-10-01] MEDS: metFORMIN HCL 500 MG TABLET (FP) PO SCH (06:17)
[2023-10-01] MEDS: TAMSULOSIN HCL 0.4 MG CAP PO SCH (09:27)
[2023-10-01] MEDS: SERTRALINE HCL 50 MG TABLET (FP) PO SCH (10:23)
[2023-10-01] MEDS: ASPIRIN 81 MG CHEWABLE TABLETS PO SCH (10:23)
[2023-10-01] MEDS: ALLOPURINOL 100 MG TABLET (FP) PO SCH (10:23)
[2023-10-01] MEDS: PRENATAL VITAMINS W/ FOLIC ACID TABLET (FP) PO SCH (10:23)
[2023-10-01] MEDS: COLCHICINE 0.6 MG CAPSULE PO SCH (10:24)
[2023-10-01 13:49] VITALS: BP 140/84; PULSE 80; RESP 19; TEMP 97.7
[2023-10-02] MEDS ORDERED: chlordiazePOXIDE HCL 10 MG CAPSULE PO ONE (05:00)
== END 2023-10-01 15:15 | disposition home or self-care (01) | DRG 775 ==
LOC: YASAS 10:40 → Y3N 11:33
PROVIDERS: ADMIT Allergy & Immunology; ATTEND Allergy & Immunology
PROC: HZ2ZZZZ Detoxification Services for Substance Abuse Treatment (ICD-10-PCS; principal; 2023-09-27)
DX: F10.230 Alcohol dependence with withdrawal, uncomplicated (principal); F17.210 Nicotine dependence, cigarettes, uncomplicated; F25.9 Schizoaffective disorder, unspecified; F10.282 Alcohol dependence with alcohol-induced sleep disorder; G47.00 Insomnia, unspecified; I10 Essential (primary) hypertension; E78.00 Pure hypercholesterolemia, unspecified; K21.9 Gastro-esophageal reflux disease without esophagitis; G47.33 Obstructive sleep apnea (adult) (pediatric); M15.9 Polyosteoarthritis, unspecified; E11.39 Type 2 diabetes mellitus with other diabetic ophthalmic complication; Z79.84 Long term (current) use of oral hypoglycemic drugs; Z87.19 Personal history of other diseases of the digestive system; Z87.11 Personal history of peptic ulcer disease; Z88.7 Allergy status to serum and vaccine
CPT/HCPCS: 36415; 80053; 80307; 82962; 85027; 86780; 87635; 87811

== ENCOUNTER 2023-12-04 10:02 | Inpatient (IN) | payer OTHER ==
[2023-12-04 11:06] VITALS: BMI 40.7
[2023-12-04] MEDS ORDERED: NALOXONE HCL (KLOXXADO) 8 MG SPRAY NS PRN (12:32)
[2023-12-04] MEDS ORDERED: MAGNESIUM HYDROX 2400MG/30ML ORAL SUSPENSION 30 ML CUP PO PRN (12:32)
[2023-12-04] MEDS ORDERED: BISMUTH SUBSALICYLATE 524 MG/30 ML PO PRN (12:32)
[2023-12-04] MEDS ORDERED: POLYETHYLENE GLYCOL (HEALTHYLAX) 3350 17 GM PACKET PO PRN (12:32)
[2023-12-04] MEDS ORDERED: guaiFENesin 600 MG TABLET.ER (FP) PO PRN (12:32)
[2023-12-04] MEDS ORDERED: IBUPROFEN 400 MG TABLET (FP) PO PRN (12:32)
[2023-12-04] MEDS ORDERED: chlordiazePOXIDE HCL 25 MG CAPSULE PO PRN (12:32)
[2023-12-04] MEDS ORDERED: BENZOCAINE/MENTHOL (CHLORASEPTIC ) LOZENGE MM PRN (12:32)
[2023-12-04] MEDS ORDERED: LOPERAMIDE HCL 2 MG CAPSULE PO PRN (12:32)
[2023-12-04] MEDS ORDERED: NALOXONE HCL 0.4 MG/ML VIAL IM PRN (12:32)
[2023-12-04] MEDS ORDERED: MAG HYDROX/AL HYDROX/SIMETH 30 ML UNIT-DOSE CUP PO PRN (12:32)
[2023-12-04] MEDS ORDERED: ACETAMINOPHEN 325 MG TABLET (FP) PO PRN (12:32)
[2023-12-04] MEDS ORDERED: ONDANSETRON *ODT* 4 MG TABLET SL PRN (12:32)
[2023-12-04] MEDS ORDERED: BENZONATATE 200 MG CAPSULE PO PRN (12:32)
[2023-12-04] MEDS ORDERED: DICYCLOMINE HCL 10 MG CAPSULE PO PRN (12:32)
[2023-12-04] MEDS ORDERED: hydrOXYzine PAMOATE 25 MG CAPSULE (FP) PO PRN (12:32)
[2023-12-04] MEDS ORDERED: ARTIFICIAL TEARS OPHTHALMIC DROPS OU PRN (12:35)
[2023-12-04] MEDS: PRENATAL VITAMINS W/ FOLIC ACID TABLET (FP) PO SCH (13:51)
[2023-12-04] MEDS: NICOTINE 14 MG/24 HOURS TOPICAL PATCH TD SCH (13:51)
[2023-12-04] MEDS ORDERED: NICOTINE 14 MG/24 HOURS TOPICAL PATCH TD ONE (14:10)
[2023-12-04] MEDS: metFORMIN HCL 500 MG TABLET (FP) PO SCH (17:07)
[2023-12-04] MEDS: IBUPROFEN 600 MG TABLET (FP) PO PRN (17:07)
[2023-12-04] MEDS: chlordiazePOXIDE HCL 25 MG CAPSULE PO SCH (17:08)
[2023-12-04] MEDS: METHOCARBAMOL 500 MG TABLET PO PRN (23:03)
[2023-12-04] MEDS: THIAMINE HCL 100 MG TABLET (FP) PO SCH (23:03)
[2023-12-04] MEDS: QUEtiapine FUMARATE 400 MG TABLET PO SCH (23:03)
[2023-12-04] MEDS: MELATONIN 5 MG TABLETS PO SCH (23:03)
[2023-12-04] MEDS: ATORVASTATIN CA 80 MG TABLET (FP) PO SCH (23:05)
[2023-12-04] MEDS: ALLOPURINOL 100 MG TABLET (FP) PO SCH (23:06)
[2023-12-05] MEDS: TAMSULOSIN HCL 0.4 MG CAP PO SCH (08:49)
[2023-12-05 08:57] LABS: HEMATOCRIT 36.9 % (35.4-49); HEMOGLOBIN 12.1 GM/dL (11.7-16.9); MCH 30.2 pg (25.7-33.7); MCHC 32.9 g/dl (32.0-35.9); MEAN CELL VOLUME 91.9 fl (80-96); MEAN PLT VOLUME 10.8 fl (7.5-11.1); PLATELET COUNT 130 10^3/uL (134-434); RBC 4.01 M/mm3 (4.00-5.60); RDW 15.5 % (11.9-15.9); WHITE BLOOD COUNT 4.7 K/mm3 (4.0-10.0)
[2023-12-05 09:39] LABS: CREATININE 1.3 mg/dL (0.55-1.3)
[2023-12-05 09:40] LABS: ALBUMIN 3.2 g/dl (3.4-5.0)
[2023-12-05 09:41] LABS: BILIRUBIN,TOTAL 0.3 mg/dL (0.2-1)
[2023-12-05 09:50] LABS: TOT PROT 6.7 g/dl (6.4-8.2)
[2023-12-05] MEDS: COLCHICINE 0.6 MG CAPSULE PO SCH (10:34)
[2023-12-05] MEDS: ASPIRIN 81 MG CHEWABLE TABLETS PO SCH (10:34)
[2023-12-05] MEDS: SERTRALINE HCL 50 MG TABLET (FP) PO SCH (10:35)
[2023-12-05] MEDS: QUEtiapine FUMARATE 100 MG TABLET (FP) PO SCH (10:35)
[2023-12-06] MEDS: chlordiazePOXIDE HCL 25 MG CAPSULE PO SCH (05:06)
[2023-12-07] MEDS ORDERED: chlordiazePOXIDE HCL 10 MG CAPSULE PO PRN
[2023-12-07] MEDS: chlordiazePOXIDE HCL 10 MG CAPSULE PO SCH (05:48)
[2023-12-07 12:51] VITALS: BP 132/88; PULSE 90; RESP 18; TEMP 97.6
[2023-12-08] MEDS ORDERED: chlordiazePOXIDE HCL 10 MG CAPSULE PO SCH (05:00)
[2023-12-09] MEDS ORDERED: chlordiazePOXIDE HCL 10 MG CAPSULE PO ONE (05:00)
== END 2023-12-07 15:18 | disposition left against medical advice (07) | DRG 770 ==
LOC: YASAS 10:02 → Y6N 13:08
PROVIDERS: ADMIT Allergy & Immunology; ATTEND Surgery
PROC: HZ2ZZZZ Detoxification Services for Substance Abuse Treatment (ICD-10-PCS; principal; 2023-12-04)
DX: F10.230 Alcohol dependence with withdrawal, uncomplicated (principal); F17.210 Nicotine dependence, cigarettes, uncomplicated; F10.282 Alcohol dependence with alcohol-induced sleep disorder; F20.9 Schizophrenia, unspecified; I10 Essential (primary) hypertension; G47.33 Obstructive sleep apnea (adult) (pediatric); K21.9 Gastro-esophageal reflux disease without esophagitis; E78.00 Pure hypercholesterolemia, unspecified; E11.9 Type 2 diabetes mellitus without complications; Z79.84 Long term (current) use of oral hypoglycemic drugs; N40.0 Benign prostatic hyperplasia without lower urinary tract symptoms; H10.9 Unspecified conjunctivitis; Z88.7 Allergy status to serum and vaccine; Z87.11 Personal history of peptic ulcer disease; Z86.59 Personal history of other mental and behavioral disorders
CPT/HCPCS: 36415; 80053; 80307; 82140; 82962; 83036; 85027; 86780; 93005; 93010

== ENCOUNTER 2023-12-24 09:54 | Inpatient (IN) | payer OTHER ==
[2023-12-24 10:55] VITALS: BMI 38.7
[2023-12-24] MEDS ORDERED: BENZONATATE 200 MG CAPSULE PO PRN (11:17)
[2023-12-24] MEDS ORDERED: ACETAMINOPHEN 325 MG TABLET (FP) PO PRN (11:17)
[2023-12-24] MEDS ORDERED: BISMUTH SUBSALICYLATE 524 MG/30 ML PO PRN (11:17)
[2023-12-24] MEDS ORDERED: MAG HYDROX/AL HYDROX/SIMETH 30 ML UNIT-DOSE CUP PO PRN (11:17)
[2023-12-24] MEDS ORDERED: IBUPROFEN 400 MG TABLET (FP) PO PRN (11:17)
[2023-12-24] MEDS ORDERED: LOPERAMIDE HCL 2 MG CAPSULE PO PRN (11:17)
[2023-12-24] MEDS ORDERED: chlordiazePOXIDE HCL 25 MG CAPSULE PO PRN (11:17)
[2023-12-24] MEDS ORDERED: NALOXONE HCL 0.4 MG/ML VIAL IM PRN (11:17)
[2023-12-24] MEDS ORDERED: ONDANSETRON *ODT* 4 MG TABLET SL PRN (11:17)
[2023-12-24] MEDS ORDERED: MAGNESIUM HYDROX 2400MG/30ML ORAL SUSPENSION 30 ML CUP PO PRN (11:17)
[2023-12-24] MEDS ORDERED: POLYETHYLENE GLYCOL (HEALTHYLAX) 3350 17 GM PACKET PO PRN (11:17)
[2023-12-24] MEDS ORDERED: DICYCLOMINE HCL 10 MG CAPSULE PO PRN (11:17)
[2023-12-24] MEDS ORDERED: NALOXONE HCL (KLOXXADO) 8 MG SPRAY NS PRN (11:17)
[2023-12-24] MEDS ORDERED: hydrOXYzine PAMOATE 25 MG CAPSULE (FP) PO PRN (11:17)
[2023-12-24] MEDS ORDERED: ARTIFICIAL TEARS OPHTHALMIC DROPS OU PRN (11:21)
[2023-12-24] MEDS ORDERED: predniSONE 20 MG TABLET (UD) PO SCH (11:30)
[2023-12-24] MEDS: INSULIN (NOVOLOG) ASPART 100 UNITS/ML 10ML VIAL SQ SCH (11:33)
[2023-12-24] MEDS: predniSONE 20 MG TABLET (UD) PO SCH (13:38)
[2023-12-24] MEDS: ASPIRIN 81 MG CHEWABLE TABLETS PO SCH (13:47)
[2023-12-24] MEDS: COLCHICINE 0.6 MG CAPSULE PO SCH (13:47)
[2023-12-24] MEDS ORDERED: COLCHICINE 0.6 MG CAP PO SCH (14:00)
[2023-12-24] MEDS: COLCHICINE 0.6 MG TAB PO SCH (14:23)
[2023-12-24] MEDS: metFORMIN HCL 500 MG TABLET (FP) PO SCH (16:32)
[2023-12-24] MEDS: chlordiazePOXIDE HCL 25 MG CAPSULE PO SCH (17:34)
[2023-12-24] MEDS: guaiFENesin 600 MG TABLET.ER (FP) PO PRN (17:38)
[2023-12-24] MEDS ORDERED: QUEtiapine FUMARATE 300 MG TABLET PO SCH (22:00)
[2023-12-24] MEDS: QUEtiapine FUMARATE 200 MG TABLET PO SCH (22:20)
[2023-12-24] MEDS: THIAMINE HCL 100 MG TABLET (FP) PO SCH (22:20)
[2023-12-24] MEDS: MELATONIN 5 MG TABLETS PO SCH (22:20)
[2023-12-24] MEDS: ATORVASTATIN CA 80 MG TABLET (FP) PO SCH (22:21)
[2023-12-24] MEDS: METHOCARBAMOL 500 MG TABLET PO PRN (22:24)
[2023-12-25] MEDS: TAMSULOSIN HCL 0.4 MG CAP PO SCH (09:02)
[2023-12-25] MEDS: SERTRALINE HCL 50 MG TABLET (FP) PO SCH (10:57)
[2023-12-25] MEDS: PRENATAL VITAMINS W/ FOLIC ACID TABLET (FP) PO SCH (10:57)
[2023-12-25] MEDS: ALLOPURINOL 100 MG TABLET (FP) PO SCH (10:58)
[2023-12-25] MEDS: QUEtiapine FUMARATE 100 MG TABLET (FP) PO SCH (10:58)
[2023-12-25] MEDS: ASPIRIN COATED 81 MG TABLET.EC PO SCH (10:58)
[2023-12-25] MEDS: IBUPROFEN 600 MG TABLET (FP) PO PRN (11:03)
[2023-12-25 14:37] LABS: MCH 30.3 pg (25.7-33.7); MCHC 33.3 g/dl (32.0-35.9); MEAN CELL VOLUME 90.9 fl (80-96); MEAN PLT VOLUME 10.5 fl (7.5-11.1); PLATELET COUNT 120 10^3/uL (134-434); WHITE BLOOD COUNT 3.2 K/mm3 (4.0-10.0)
[2023-12-25 14:57] LABS: POTASSIUM 4.6 mmol/L (3.5-5.1)
[2023-12-25 15:04] LABS: CALCIUM 9.2 mg/dL (8.5-10.1)
[2023-12-25 15:05] LABS: ALBUMIN 3.4 g/dl (3.4-5.0); BLOOD UREA NITROGEN 13.3 mg/dL (7-18)
[2023-12-25 15:08] LABS: CREATININE 1.3 mg/dL (0.55-1.3); URIC ACID 10.3 mg/dL (2.6-7.2)
[2023-12-25 15:09] LABS: BILIRUBIN,TOTAL 0.5 mg/dL (0.2-1); TOT PROT 6.9 g/dl (6.4-8.2)
[2023-12-25] MEDS ORDERED: INSULIN (NOVOLOG) ASPART 100 UNITS/ML 10ML VIAL ONE (17:02)
[2023-12-25] MEDS: LACTULOSE 20 GM/30 ML UDC (FOR ORAL USE ONLY) PO SCH (17:25)
[2023-12-25] MEDS: QUEtiapine FUMARATE 400 MG TABLET PO SCH (22:41)
[2023-12-26] MEDS: chlordiazePOXIDE HCL 25 MG CAPSULE PO SCH (05:32)
[2023-12-26] MEDS: BENZOCAINE/MENTHOL (CHLORASEPTIC ) LOZENGE MM PRN (11:04)
[2023-12-26] MEDS ORDERED: INSULIN (NOVOLOG) ASPART 100 UNITS/ML 10ML VIAL ONE (22:35)
[2023-12-27] MEDS ORDERED: chlordiazePOXIDE HCL 10 MG CAPSULE PO PRN
[2023-12-27] MEDS: chlordiazePOXIDE HCL 10 MG CAPSULE PO SCH (05:34)
[2023-12-27] MEDS ORDERED: INSULIN (NOVOLOG) ASPART 100 UNITS/ML 10ML VIAL ONE (17:07)
[2023-12-28] MEDS: chlordiazePOXIDE HCL 10 MG CAPSULE PO SCH (05:43)
[2023-12-28 10:03] VITALS: RESP 17
[2023-12-28 13:18] VITALS: BP 137/82; PULSE 84; TEMP 97.3
[2023-12-29] MEDS ORDERED: chlordiazePOXIDE HCL 10 MG CAPSULE PO ONE (05:00)
== END 2023-12-28 14:59 | disposition home or self-care (01) | DRG 775 ==
LOC: YASAS 09:54 → Y6N 11:51
PROVIDERS: ADMIT Allergy & Immunology; ATTEND Surgery
PROC: HZ2ZZZZ Detoxification Services for Substance Abuse Treatment (ICD-10-PCS; principal; 2023-12-24)
DX: F10.230 Alcohol dependence with withdrawal, uncomplicated (principal); F17.210 Nicotine dependence, cigarettes, uncomplicated; F25.9 Schizoaffective disorder, unspecified; F32.A Depression, unspecified; I10 Essential (primary) hypertension; E78.5 Hyperlipidemia, unspecified; E78.00 Pure hypercholesterolemia, unspecified; G47.33 Obstructive sleep apnea (adult) (pediatric); E11.9 Type 2 diabetes mellitus without complications; Z79.84 Long term (current) use of oral hypoglycemic drugs; M10.9 Gout, unspecified; N40.0 Benign prostatic hyperplasia without lower urinary tract symptoms; R79.89 Other specified abnormal findings of blood chemistry; Z87.11 Personal history of peptic ulcer disease; Z88.7 Allergy status to serum and vaccine
CPT/HCPCS: 36415; 73140-TC-RT-FY; 80053; 80307; 82140; 82962; 83036; 84550; 85027; 86780; 93005; 93010

== ENCOUNTER 2024-02-21 11:38 | Inpatient (IN) | payer OTHER ==
[2024-02-21 12:15] VITALS: BMI 40.7
[2024-02-21] MEDS ORDERED: POLYETHYLENE GLYCOL (HEALTHYLAX) 3350 17 GM PACKET PO PRN (12:30)
[2024-02-21] MEDS ORDERED: BENZONATATE 200 MG CAPSULE PO PRN (12:30)
[2024-02-21] MEDS ORDERED: ONDANSETRON *ODT* 4 MG TABLET SL PRN (12:30)
[2024-02-21] MEDS ORDERED: hydrOXYzine PAMOATE 25 MG CAPSULE (FP) PO PRN (12:30)
[2024-02-21] MEDS ORDERED: BISMUTH SUBSALICYLATE 524 MG/30 ML PO PRN (12:30)
[2024-02-21] MEDS ORDERED: NALOXONE HCL 0.4 MG/ML VIAL IM PRN (12:30)
[2024-02-21] MEDS ORDERED: LOPERAMIDE HCL 2 MG CAPSULE PO PRN (12:30)
[2024-02-21] MEDS ORDERED: BENZOCAINE/MENTHOL (CHLORASEPTIC ) LOZENGE MM PRN (12:30)
[2024-02-21] MEDS ORDERED: MAGNESIUM HYDROX 2400MG/30ML ORAL SUSPENSION 30 ML CUP PO PRN (12:30)
[2024-02-21] MEDS ORDERED: ACETAMINOPHEN 325 MG TABLET (FP) PO PRN (12:30)
[2024-02-21] MEDS ORDERED: IBUPROFEN 400 MG TABLET (FP) PO PRN (12:30)
[2024-02-21] MEDS ORDERED: NALOXONE (NARCAN) HCL 4 MG/0.1 ML SPRAY NS PRN (12:30)
[2024-02-21] MEDS ORDERED: guaiFENesin 600 MG TABLET.ER (FP) PO PRN (12:30)
[2024-02-21] MEDS ORDERED: DICYCLOMINE HCL 10 MG CAPSULE PO PRN (12:30)
[2024-02-21] MEDS ORDERED: ARTIFICIAL TEARS OPHTHALMIC DROPS OU PRN (12:32)
[2024-02-21] MEDS ORDERED: NICOTINE 14 MG/24 HOURS TOPICAL PATCH TD ONE (13:36)
[2024-02-21] MEDS ORDERED: PRENATAL VITAMINS W/ FOLIC ACID TABLET (FP) PO ONE (13:37)
[2024-02-21] MEDS: NICOTINE 14 MG/24 HOURS TOPICAL PATCH TD SCH (13:46)
[2024-02-21] MEDS: PRENATAL VITAMINS W/ FOLIC ACID TABLET (FP) PO SCH (13:46)
[2024-02-21] MEDS: ACAMPROSATE CALCIUM 333 MG TABLET.DR PO SCH (14:16)
[2024-02-21] MEDS: metFORMIN HCL 500 MG TABLET (FP) PO SCH (17:27)
[2024-02-21] MEDS: chlordiazePOXIDE HCL 25 MG CAPSULE PO SCH (17:27)
[2024-02-21] MEDS: IBUPROFEN 600 MG TABLET (FP) PO PRN (17:30)
[2024-02-21] MEDS: ATORVASTATIN CA 80 MG TABLET (FP) PO SCH (22:47)
[2024-02-21] MEDS: QUEtiapine FUMARATE 200 MG TABLET PO SCH (22:47)
[2024-02-21] MEDS: ALLOPURINOL 100 MG TABLET (FP) PO SCH (22:47)
[2024-02-21] MEDS: THIAMINE 100 MG TABLET PO SCH (22:47)
[2024-02-21] MEDS: MELATONIN 5 MG TABLETS PO SCH (23:19)
[2024-02-22] MEDS: TAMSULOSIN HCL 0.4 MG CAP PO SCH (09:44)
[2024-02-22] MEDS: ASPIRIN 81 MG CHEWABLE TABLETS PO SCH (09:44)
[2024-02-22] MEDS: SERTRALINE HCL 50 MG TABLET (FP) PO SCH (09:45)
[2024-02-22] MEDS: COLCHICINE 0.6 MG TAB PO SCH (09:45)
[2024-02-22] MEDS: QUEtiapine FUMARATE 100 MG TABLET (FP) PO SCH (09:45)
[2024-02-22] MEDS ORDERED: COLCHICINE 0.6 MG CAPSULE PO SCH (10:00)
[2024-02-22 11:44] LABS: HEMATOCRIT 40.2 % (35.4-49); HEMOGLOBIN 13.5 GM/dL (11.7-16.9); MCH 29.7 pg (25.7-33.7); MCHC 33.6 g/dl (32.0-35.9); MEAN CELL VOLUME 88.3 fl (80-96); PLATELET COUNT 126 10^3/uL (134-434); RBC 4.55 M/mm3 (4.00-5.60); RDW 15.4 % (11.9-15.9); WHITE BLOOD COUNT 3.5 K/mm3 (4.0-10.0)
[2024-02-22 11:50] LABS: POTASSIUM 5.2 mmol/L (3.5-5.1)
[2024-02-22 11:57] LABS: ALBUMIN 4.3 g/dl (3.4-5.0); BLOOD UREA NITROGEN 13.8 mg/dL (7-18); CALCIUM 9.5 mg/dL (8.5-10.1)
[2024-02-22 12:00] LABS: CREATININE 1.3 mg/dL (0.55-1.3)
[2024-02-22 12:01] LABS: BILIRUBIN,TOTAL 0.8 mg/dL (0.2-1); TOT PROT 7.6 g/dl (6.4-8.2)
[2024-02-22] MEDS: SODIUM POLYSTYRENE SULFONATE 15 GM/60 ML BOTTLE PO ONE (14:47)
[2024-02-22] MEDS: QUEtiapine FUMARATE 400 MG TABLET PO SCH (22:40)
[2024-02-22] MEDS: LACTULOSE 20 GM/30 ML UDC (FOR ORAL USE ONLY) PO SCH (22:41)
[2024-02-23] MEDS: chlordiazePOXIDE HCL 25 MG CAPSULE PO SCH (06:05)
[2024-02-23] MEDS: chlordiazePOXIDE HCL 25 MG CAPSULE PO PRN (10:37)
[2024-02-23 14:10] LABS: POTASSIUM 3.9 mmol/L (3.5-5.1)
[2024-02-23 14:15] LABS: CALCIUM 9.1 mg/dL (8.5-10.1)
[2024-02-23 14:16] LABS: BLOOD UREA NITROGEN 16.8 mg/dL (7-18)
[2024-02-23] MEDS: MAG HYDROX/AL HYDROX/SIMETH 30 ML UNIT-DOSE CUP PO PRN (17:57)
[2024-02-24] MEDS ORDERED: chlordiazePOXIDE HCL 10 MG CAPSULE PO PRN
[2024-02-24] MEDS: chlordiazePOXIDE HCL 10 MG CAPSULE PO SCH ×2 (05:42→12:08)
[2024-02-24] MEDS: ACAMPROSATE CALCIUM 333 MG TABLET.DR PO SCH (15:29)
[2024-02-25] MEDS: chlordiazePOXIDE HCL 10 MG CAPSULE PO SCH (05:53)
[2024-02-25] MEDS: METHOCARBAMOL 500 MG TABLET PO PRN (22:20)
[2024-02-26] MEDS: chlordiazePOXIDE HCL 10 MG CAPSULE PO ONE (05:25)
[2024-02-26 08:47] VITALS: BP 145/91; PULSE 102; RESP 18; TEMP 98.4
== END 2024-02-26 09:50 | disposition home or self-care (01) | DRG 775 ==
LOC: YASAS 11:38 → Y6N 13:17
PROVIDERS: ADMIT Allergy & Immunology; ATTEND Surgery
PROC: HZ2ZZZZ Detoxification Services for Substance Abuse Treatment (ICD-10-PCS; principal; 2024-02-21)
DX: F10.230 Alcohol dependence with withdrawal, uncomplicated (principal); F17.210 Nicotine dependence, cigarettes, uncomplicated; F20.9 Schizophrenia, unspecified; E87.5 Hyperkalemia; G47.33 Obstructive sleep apnea (adult) (pediatric); I10 Essential (primary) hypertension; K21.9 Gastro-esophageal reflux disease without esophagitis; E78.00 Pure hypercholesterolemia, unspecified; E11.9 Type 2 diabetes mellitus without complications; Z79.84 Long term (current) use of oral hypoglycemic drugs; M10.9 Gout, unspecified; N40.0 Benign prostatic hyperplasia without lower urinary tract symptoms; E66.01 Morbid (severe) obesity due to excess calories; Z68.41 Body mass index [BMI] 40.0-44.9, adult; Z88.7 Allergy status to serum and vaccine
CPT/HCPCS: 36415; 80048; 80053; 80305; 80307; 82140; 82962; 85027; 86780; 93005; 93010

== ENCOUNTER 2024-03-13 12:06 | Inpatient (IN) | payer OTHER ==
[2024-03-13 12:32] VITALS: BMI 41.1
[2024-03-13] MEDS ORDERED: NALOXONE HCL 0.4 MG/ML VIAL IM PRN (12:48)
[2024-03-13] MEDS ORDERED: BENZONATATE 200 MG CAPSULE PO PRN (12:48)
[2024-03-13] MEDS ORDERED: ACETAMINOPHEN 325 MG TABLET (FP) PO PRN (12:48)
[2024-03-13] MEDS ORDERED: POLYETHYLENE GLYCOL (HEALTHYLAX) 3350 17 GM PACKET PO PRN (12:48)
[2024-03-13] MEDS ORDERED: guaiFENesin 600 MG TABLET.ER (FP) PO PRN (12:48)
[2024-03-13] MEDS ORDERED: ONDANSETRON *ODT* 4 MG TABLET SL PRN (12:48)
[2024-03-13] MEDS ORDERED: MAGNESIUM HYDROX 2400MG/30ML ORAL SUSPENSION 30 ML CUP PO PRN (12:48)
[2024-03-13] MEDS ORDERED: BISMUTH SUBSALICYLATE 524 MG/30 ML PO PRN (12:48)
[2024-03-13] MEDS ORDERED: DICYCLOMINE HCL 10 MG CAPSULE PO PRN (12:48)
[2024-03-13] MEDS ORDERED: IBUPROFEN 400 MG TABLET (FP) PO PRN (12:48)
[2024-03-13] MEDS ORDERED: NALOXONE (NARCAN) HCL 4 MG/0.1 ML SPRAY NS PRN (12:48)
[2024-03-13] MEDS ORDERED: LOPERAMIDE HCL 2 MG CAPSULE PO PRN (12:48)
[2024-03-13] MEDS ORDERED: NICOTINE POLACRILEX 2 MG GUM BUC PRN (12:48)
[2024-03-13] MEDS ORDERED: ARTIFICIAL TEARS OPHTHALMIC DROPS OU PRN (12:50)
[2024-03-13] MEDS ORDERED: ASPIRIN 81 MG CHEWABLE TABLETS ONE (14:01)
[2024-03-13] MEDS: ASPIRIN 81 MG CHEWABLE TABLETS PO SCH (14:03)
[2024-03-13] MEDS: ALLOPURINOL 100 MG TABLET (FP) PO SCH (14:23)
[2024-03-13] MEDS: ACAMPROSATE CALCIUM 333 MG TABLET.DR PO SCH (14:23)
[2024-03-13] MEDS: PANTOPRAZOLE 40 MG TABLET PO SCH (14:23)
[2024-03-13] MEDS: COLCHICINE 0.6 MG TAB PO SCH (14:24)
[2024-03-13] MEDS: PETROLATUM, WHITE 30 GM TUBE TP SCH (14:24)
[2024-03-13] MEDS: metFORMIN HCL 500 MG TABLET (FP) PO SCH (17:18)
[2024-03-13] MEDS: chlordiazePOXIDE HCL 25 MG CAPSULE PO SCH (17:18)
[2024-03-13] MEDS: INSULIN ASPART SLIDING SCALE (NOVOLOG) 1 VIAL SQ SCH (17:27)
[2024-03-13] MEDS ORDERED: MELATONIN 5 MG TABLETS PO SCH (22:00)
[2024-03-13] MEDS: THIAMINE 100 MG TABLET PO SCH (22:16)
[2024-03-13] MEDS: ATORVASTATIN CA 80 MG TABLET (FP) PO SCH (22:16)
[2024-03-13] MEDS: QUEtiapine FUMARATE 300 MG TABLET PO SCH (22:16)
[2024-03-14] MEDS ORDERED: INSULIN (NOVOLOG) ASPART 100 UNITS/ML 10ML VIAL ONE ×2 (06:15→17:12)
[2024-03-14] MEDS: TAMSULOSIN HCL 0.4 MG CAP PO SCH (07:35)
[2024-03-14] MEDS: PRENATAL VITAMINS W/ FOLIC ACID TABLET (FP) PO SCH (09:35)
[2024-03-14 17:40] LABS: HEMATOCRIT 34.6 % (35.4-49); HEMOGLOBIN 11.5 GM/dL (11.7-16.9); MCHC 33.1 g/dl (32.0-35.9); MEAN CELL VOLUME 90.6 fl (80-96); MEAN PLT VOLUME 10.3 fl (7.5-11.1); PLATELET COUNT 120 10^3/uL (134-434); RBC 3.82 M/mm3 (4.00-5.60); RDW 15.1 % (11.9-15.9); WHITE BLOOD COUNT 3.7 K/mm3 (4.0-10.0)
[2024-03-14] MEDS: chlordiazePOXIDE HCL 25 MG CAPSULE PO PRN (22:56)
[2024-03-15] MEDS: chlordiazePOXIDE HCL 25 MG CAPSULE PO SCH (05:35)
[2024-03-15] MEDS ORDERED: INSULIN (NOVOLOG) ASPART 100 UNITS/ML 10ML VIAL ONE ×3 (07:42→17:04)
[2024-03-15] MEDS: hydrOXYzine PAMOATE 25 MG CAPSULE (FP) PO PRN (10:21)
[2024-03-15] MEDS: LACTULOSE 20 GM/30 ML UDC (FOR ORAL USE ONLY) PO SCH (13:18)
[2024-03-16] MEDS ORDERED: chlordiazePOXIDE HCL 10 MG CAPSULE PO PRN
[2024-03-16] MEDS: chlordiazePOXIDE HCL 10 MG CAPSULE PO SCH (05:24)
[2024-03-16] MEDS: IBUPROFEN 600 MG TABLET (FP) PO PRN (05:28)
[2024-03-16] MEDS ORDERED: INSULIN (NOVOLOG) ASPART 100 UNITS/ML 10ML VIAL ONE (11:49)
[2024-03-17] MEDS: chlordiazePOXIDE HCL 10 MG CAPSULE PO SCH (05:22)
[2024-03-17] MEDS ORDERED: INSULIN (NOVOLOG) ASPART 100 UNITS/ML 10ML VIAL ONE ×2 (07:52→17:16)
[2024-03-17 08:38] VITALS: RESP 18
[2024-03-17] MEDS: MAG HYDROX/AL HYDROX/SIMETH 30 ML UNIT-DOSE CUP PO PRN (17:31)
[2024-03-17] MEDS: METHOCARBAMOL 500 MG TABLET PO PRN (17:31)
[2024-03-17] MEDS: BENZOCAINE/MENTHOL (CHLORASEPTIC ) LOZENGE MM PRN (22:13)
[2024-03-18] MEDS: chlordiazePOXIDE HCL 10 MG CAPSULE PO ONE (05:50)
[2024-03-18] MEDS ORDERED: INSULIN (NOVOLOG) ASPART 100 UNITS/ML 10ML VIAL ONE (06:10)
[2024-03-18 08:48] VITALS: BP 131/81; PULSE 98; TEMP 98
== END 2024-03-18 13:12 | disposition home or self-care (01) | DRG 775 ==
LOC: YASAS 12:06 → Y6N 13:25
PROVIDERS: ADMIT Allergy & Immunology; ATTEND Surgery
PROC: HZ2ZZZZ Detoxification Services for Substance Abuse Treatment (ICD-10-PCS; principal; 2024-03-13)
DX: F10.230 Alcohol dependence with withdrawal, uncomplicated (principal); F17.210 Nicotine dependence, cigarettes, uncomplicated; F25.1 Schizoaffective disorder, depressive type; F31.9 Bipolar disorder, unspecified; E72.20 Disorder of urea cycle metabolism, unspecified; I10 Essential (primary) hypertension; E78.5 Hyperlipidemia, unspecified; E11.39 Type 2 diabetes mellitus with other diabetic ophthalmic complication; Z79.84 Long term (current) use of oral hypoglycemic drugs; G47.00 Insomnia, unspecified; G47.33 Obstructive sleep apnea (adult) (pediatric); N40.0 Benign prostatic hyperplasia without lower urinary tract symptoms; Z87.11 Personal history of peptic ulcer disease; Z88.7 Allergy status to serum and vaccine
CPT/HCPCS: 36415; 80305; 82140; 82962; 85027; 86780; 93005; 93010

== ENCOUNTER 2024-03-21 12:18 | Inpatient (IN) | payer OTHER ==
[2024-03-21 13:06] VITALS: BMI 40.4
[2024-03-21] MEDS ORDERED: BISMUTH SUBSALICYLATE 524 MG/30 ML PO PRN (13:29)
[2024-03-21] MEDS ORDERED: BENZONATATE 200 MG CAPSULE PO PRN (13:29)
[2024-03-21] MEDS ORDERED: MAG HYDROX/AL HYDROX/SIMETH 30 ML UNIT-DOSE CUP PO PRN (13:29)
[2024-03-21] MEDS ORDERED: NALOXONE HCL 0.4 MG/ML VIAL IM PRN (13:29)
[2024-03-21] MEDS ORDERED: NALOXONE (NARCAN) HCL 4 MG/0.1 ML SPRAY NS PRN (13:29)
[2024-03-21] MEDS ORDERED: NICOTINE POLACRILEX 2 MG LOZENGE BC PRN (13:29)
[2024-03-21] MEDS ORDERED: ONDANSETRON *ODT* 4 MG TABLET SL PRN (13:29)
[2024-03-21] MEDS ORDERED: POLYETHYLENE GLYCOL (HEALTHYLAX) 3350 17 GM PACKET PO PRN (13:29)
[2024-03-21] MEDS ORDERED: ACETAMINOPHEN 325 MG TABLET (FP) PO PRN (13:29)
[2024-03-21] MEDS ORDERED: BENZOCAINE/MENTHOL (CHLORASEPTIC ) LOZENGE MM PRN (13:29)
[2024-03-21] MEDS ORDERED: MAGNESIUM HYDROX 2400MG/30ML ORAL SUSPENSION 30 ML CUP PO PRN (13:29)
[2024-03-21] MEDS ORDERED: hydrOXYzine PAMOATE 25 MG CAPSULE (FP) PO PRN (13:29)
[2024-03-21] MEDS ORDERED: METHOCARBAMOL 500 MG TABLET PO PRN (13:29)
[2024-03-21] MEDS ORDERED: LOPERAMIDE HCL 2 MG CAPSULE PO PRN (13:29)
[2024-03-21] MEDS ORDERED: NICOTINE POLACRILEX 2 MG GUM BUC PRN (13:29)
[2024-03-21] MEDS ORDERED: DICYCLOMINE HCL 10 MG CAPSULE PO PRN (13:29)
[2024-03-21] MEDS ORDERED: NICOTINE 7 MG/24 HOURS TOPICAL PATCH TD ONE (15:44)
[2024-03-21] MEDS ORDERED: PRENATAL VITAMINS W/ FOLIC ACID TABLET (FP) PO ONE (15:45)
[2024-03-21] MEDS: NICOTINE 7 MG/24 HOURS TOPICAL PATCH TD SCH (15:48)
[2024-03-21] MEDS: PRENATAL VITAMINS W/ FOLIC ACID TABLET (FP) PO SCH (15:48)
[2024-03-21] MEDS ORDERED: INSULIN ASPART SLIDING SCALE (NOVOLOG) 1 VIAL SQ SCH ×3 (16:30)
[2024-03-21] MEDS: metFORMIN HCL 500 MG TABLET (FP) PO SCH (17:30)
[2024-03-21] MEDS: INSULIN (NOVOLOG) ASPART 100 UNITS/ML 10ML VIAL SQ SCH (17:33)
[2024-03-21] MEDS: THIAMINE 100 MG TABLET PO SCH (23:07)
[2024-03-21] MEDS: MELATONIN 5 MG TABLETS PO SCH ×2 (23:07→23:09)
[2024-03-21] MEDS: ATORVASTATIN CA 80 MG TABLET (FP) PO SCH (23:08)
[2024-03-21] MEDS: QUEtiapine FUMARATE 200 MG TABLET PO SCH (23:08)
[2024-03-21] MEDS: ALLOPURINOL 100 MG TABLET (FP) PO SCH (23:11)
[2024-03-21] MEDS: IBUPROFEN 600 MG TABLET (FP) PO PRN (23:18)
[2024-03-22] MEDS: TAMSULOSIN HCL 0.4 MG CAP PO SCH (09:30)
[2024-03-22] MEDS: SERTRALINE HCL 50 MG TABLET (FP) PO SCH (10:23)
[2024-03-22] MEDS: ASPIRIN 81 MG CHEWABLE TABLETS PO SCH (10:23)
[2024-03-22] MEDS: guaiFENesin 600 MG TABLET.ER (FP) PO PRN (10:25)
[2024-03-22] MEDS: COLCHICINE 0.6 MG CAPSULE PO SCH (10:56)
[2024-03-22 11:40] LABS: HEMATOCRIT 33.6 % (35.4-49); HEMOGLOBIN 11.3 GM/dL (11.7-16.9); MCH 30.4 pg (25.7-33.7); MCHC 33.6 g/dl (32.0-35.9); MEAN CELL VOLUME 90.5 fl (80-96); MEAN PLT VOLUME 10.9 fl (7.5-11.1); PLATELET COUNT 108 10^3/uL (134-434); RBC 3.72 M/mm3 (4.00-5.60); RDW 15.5 % (11.9-15.9)
[2024-03-22 12:05] LABS: CHLORIDE 107 mmol/L (98-107); SODIUM 142 mmol/L (136-145)
[2024-03-22 12:11] LABS: CALCIUM 9.1 mg/dL (8.5-10.1)
[2024-03-22 12:12] LABS: ALBUMIN 3.2 g/dl (3.4-5.0); ANION GAP 5 mmol/L (4-13); BLOOD UREA NITROGEN 13.1 mg/dL (7-18); CO2 30 mmol/L (21-32); GLUCOSE,RANDOM 162 mg/dL (74-106)
[2024-03-22 12:15] LABS: CREATININE 0.9 mg/dL (0.55-1.3); SGOT/AST 37 U/L (15-37); SGPT/ALT 36 U/L (13-61)
[2024-03-22 12:17] LABS: BILIRUBIN,TOTAL 0.3 mg/dL (0.2-1); TOT PROT 6.3 g/dl (6.4-8.2)
[2024-03-22 12:18] LABS: ALK PHOS 91 U/L (45-117)
[2024-03-23] MEDS ORDERED: ARTIFICIAL TEARS OPHTHALMIC DROPS OU PRN (10:42)
[2024-03-23] MEDS: ACAMPROSATE CALCIUM 333 MG TABLET.DR PO SCH (14:29)
[2024-03-23] MEDS: diazePAM 5 MG TABLET PO SCH (17:02)
[2024-03-24] MEDS: diazePAM 5 MG TABLET PO SCH (05:58)
[2024-03-24] MEDS ORDERED: BENZONATATE 200 MG CAPSULE PO PRN (11:48)
[2024-03-24] MEDS: METOPROLOL TARTRATE 25 MG TABLET (FP) PO ONE (22:05)
[2024-03-25] MEDS: diazePAM 5 MG TABLET PO SCH (05:45)
[2024-03-25] MEDS: amLODIPine BESYLATE 2.5 MG TABLET (FP) PO SCH (09:51)
[2024-03-25] MEDS ORDERED: INSULIN (NOVOLOG) ASPART 100 UNITS/ML 10ML VIAL ONE (11:11)
[2024-03-26] MEDS: diazePAM 5 MG TABLET PO ONE (05:55)
[2024-03-26] MEDS: IBUPROFEN 400 MG TABLET (FP) PO PRN (21:45)
[2024-03-27 09:40] VITALS: RESP 18
[2024-03-27 13:23] VITALS: BP 135/88; PULSE 78; TEMP 97.5
== END 2024-03-27 15:02 | disposition other institution (70) | DRG 775 ==
LOC: YASAS 12:18 → Y3N 14:59 → Y6N 15:18
PROVIDERS: ADMIT Allergy & Immunology; ATTEND Surgery
PROC: HZ2ZZZZ Detoxification Services for Substance Abuse Treatment (ICD-10-PCS; principal; 2024-03-21)
DX: F10.230 Alcohol dependence with withdrawal, uncomplicated (principal); F17.210 Nicotine dependence, cigarettes, uncomplicated; F25.1 Schizoaffective disorder, depressive type; I10 Essential (primary) hypertension; E78.5 Hyperlipidemia, unspecified; E78.00 Pure hypercholesterolemia, unspecified; G47.00 Insomnia, unspecified; M10.9 Gout, unspecified; E11.39 Type 2 diabetes mellitus with other diabetic ophthalmic complication; Z79.84 Long term (current) use of oral hypoglycemic drugs; N40.0 Benign prostatic hyperplasia without lower urinary tract symptoms; Z88.7 Allergy status to serum and vaccine; Z88.8 Allergy status to other drugs, medicaments and biological substances
CPT/HCPCS: 36415; 80053; 80305; 80307; 82962; 85027; 86780; 87811

== ENCOUNTER 2024-03-27 14:47 | Inpatient (IN) | payer OTHER ==
[2024-03-27] MEDS ORDERED: METHOCARBAMOL 500 MG TABLET PO PRN (16:14)
[2024-03-27] MEDS ORDERED: POLYETHYLENE GLYCOL (HEALTHYLAX) 3350 17 GM PACKET PO PRN (16:14)
[2024-03-27] MEDS ORDERED: BENZONATATE 200 MG CAPSULE PO PRN (16:14)
[2024-03-27] MEDS ORDERED: guaiFENesin 600 MG TABLET.ER (FP) PO PRN (16:14)
[2024-03-27] MEDS ORDERED: NICOTINE POLACRILEX 4 MG GUM BUC PRN (16:14)
[2024-03-27] MEDS ORDERED: BENZOCAINE/MENTHOL (CHLORASEPTIC ) LOZENGE MM PRN (16:14)
[2024-03-27] MEDS ORDERED: MAGNESIUM HYDROX 2400MG/30ML ORAL SUSPENSION 30 ML CUP PO PRN (16:14)
[2024-03-27] MEDS ORDERED: NICOTINE POLACRILEX 4 MG LOZENGE BC PRN (16:14)
[2024-03-27] MEDS ORDERED: NALOXONE HCL 0.4 MG/ML VIAL IVPUSH PRN (16:14)
[2024-03-27] MEDS ORDERED: MAG HYDROX/AL HYDROX/SIMETH 30 ML UNIT-DOSE CUP PO PRN (16:14)
[2024-03-27] MEDS ORDERED: hydrOXYzine PAMOATE 25 MG CAPSULE (FP) PO PRN (16:14)
[2024-03-27] MEDS ORDERED: LOPERAMIDE HCL 2 MG CAPSULE PO PRN (16:14)
[2024-03-27] MEDS ORDERED: ACETAMINOPHEN 325 MG TABLET (FP) PO PRN (16:14)
[2024-03-27] MEDS ORDERED: NALOXONE (NARCAN) HCL 4 MG/0.1 ML SPRAY NS PRN (16:14)
[2024-03-27] MEDS ORDERED: NICOTINE POLACRILEX 2 MG LOZENGE BC PRN (16:28)
[2024-03-27] MEDS ORDERED: NICOTINE POLACRILEX 2 MG GUM BUC PRN (16:28)
[2024-03-27] MEDS: metFORMIN HCL 500 MG TABLET (FP) PO SCH (17:13)
[2024-03-27] MEDS: MELATONIN 5 MG TABLETS PO SCH (21:29)
[2024-03-27] MEDS: THIAMINE 100 MG TABLET PO SCH (21:29)
[2024-03-27] MEDS: ALLOPURINOL 100 MG TABLET (FP) PO SCH (21:29)
[2024-03-27] MEDS: QUEtiapine FUMARATE 300 MG TABLET PO SCH (21:30)
[2024-03-27] MEDS: ATORVASTATIN CA 40 MG TABLET (FP) PO SCH (21:30)
[2024-03-27] MEDS: ACAMPROSATE CALCIUM 333 MG TABLET.DR PO SCH (21:30)
[2024-03-27] MEDS ORDERED: QUEtiapine FUMARATE 100 MG TABLET (FP) ONE (21:30)
[2024-03-28] MEDS: TAMSULOSIN HCL 0.4 MG CAP PO SCH (07:44)
[2024-03-28] MEDS: PRENATAL VITAMINS W/ FOLIC ACID TABLET (FP) PO SCH (09:39)
[2024-03-28] MEDS: SERTRALINE HCL 50 MG TABLET (FP) PO SCH (09:40)
[2024-03-28] MEDS: ASPIRIN 81 MG CHEWABLE TABLETS PO SCH (09:40)
[2024-03-28] MEDS: amLODIPine BESYLATE 2.5 MG TABLET (FP) PO SCH (09:40)
[2024-03-28] MEDS: COLCHICINE 0.6 MG TAB PO SCH (09:41)
[2024-03-28] MEDS: QUEtiapine FUMARATE 100 MG TABLET (FP) PO SCH (09:41)
[2024-03-28] MEDS: NICOTINE 14 MG/24 HOURS TOPICAL PATCH TD SCH (09:41)
[2024-03-28] MEDS ORDERED: QUEtiapine FUMARATE 100 MG TABLET (FP) ONE (20:56)
[2024-03-29] MEDS: IBUPROFEN 400 MG TABLET (FP) PO PRN (13:59)
[2024-03-30] MEDS: IBUPROFEN 600 MG TABLET (FP) PO PRN (06:45)
[2024-03-30] MEDS ORDERED: QUEtiapine FUMARATE 50 MG TABLET ONE (08:39)
[2024-03-30] MEDS ORDERED: ATORVASTATIN CA 20 MG TABLET (FP) ONE (20:07)
[2024-03-31] MEDS ORDERED: ARTIFICIAL TEARS OPHTHALMIC DROPS OU PRN (10:27)
[2024-03-31] MEDS ORDERED: HYDROCORTISONE 1% TOPICAL CREAM 30 GM TUBE TP PRN (10:37)
[2024-03-31] MEDS ORDERED: QUEtiapine FUMARATE 50 MG TABLET ONE (11:15)
[2024-03-31] MEDS ORDERED: QUEtiapine FUMARATE 100 MG TABLET (FP) ONE (21:22)
[2024-04-01] MEDS: NALTREXONE HCL 50 MG TABLET PO SCH (09:58)
[2024-04-01 11:55] LABS: INR 0.97 (0.83-1.09)
[2024-04-01] MEDS ORDERED: QUEtiapine FUMARATE 100 MG TABLET (FP) ONE (21:10)
[2024-04-02] MEDS ORDERED: QUEtiapine FUMARATE 50 MG TABLET ONE (10:10)
[2024-04-03] MEDS ORDERED: QUEtiapine FUMARATE 100 MG TABLET (FP) ONE (20:33)
[2024-04-04] MEDS ORDERED: QUEtiapine FUMARATE 100 MG TABLET (FP) ONE (20:38)
[2024-04-07] MEDS ORDERED: QUEtiapine FUMARATE 50 MG TABLET ONE (09:34)
[2024-04-07] MEDS: NALTREXONE MICROSPHERES (VIVITROL) 380 MG DISP.SYRIN IM ONE (11:46)
[2024-04-07] MEDS ORDERED: QUEtiapine FUMARATE 100 MG TABLET (FP) ONE (21:30)
[2024-04-08] MEDS: NALTREXONE HCL 50 MG TABLET PO SCH (10:33)
[2024-04-08] MEDS ORDERED: QUEtiapine FUMARATE 100 MG TABLET (FP) ONE (21:38)
[2024-04-09] MEDS ORDERED: QUEtiapine FUMARATE 100 MG TABLET (FP) ONE (20:23)
[2024-04-10] MEDS ORDERED: QUEtiapine FUMARATE 100 MG TABLET (FP) ONE (21:26)
[2024-04-11] MEDS ORDERED: QUEtiapine FUMARATE 100 MG TABLET (FP) ONE (21:17)
[2024-04-12] MEDS ORDERED: QUEtiapine FUMARATE 100 MG TABLET (FP) ONE (21:48)
[2024-04-13] MEDS ORDERED: ATORVASTATIN CA 20 MG TABLET (FP) ONE (21:22)
[2024-04-13] MEDS ORDERED: QUEtiapine FUMARATE 100 MG TABLET (FP) ONE (21:22)
[2024-04-14] MEDS ORDERED: QUEtiapine FUMARATE 100 MG TABLET (FP) ONE (21:27)
[2024-04-15] MEDS ORDERED: QUEtiapine FUMARATE 100 MG TABLET (FP) ONE (21:14)
[2024-04-16 07:02] VITALS: RESP 18
[2024-04-17 07:02] VITALS: TEMP 97.3
[2024-04-17 08:49] VITALS: BP 149/79; PULSE 100
== END 2024-04-17 12:51 | disposition home or self-care (01) | DRG 772 ==
LOC: YASAS 14:47 → Y3W 14:49 → Y3NR 04-01 13:18 → Y3W 04-01 13:19
PROVIDERS: ADMIT Allergy & Immunology; ATTEND Psychiatry & Neurology Pain Medicine
PROC: HZ42ZZZ Group Counseling for Substance Abuse Treatment, Cognitive-Behavioral (ICD-10-PCS; principal; 2024-03-27)
DX: F10.20 Alcohol dependence, uncomplicated (principal); F20.9 Schizophrenia, unspecified; I10 Essential (primary) hypertension; G47.33 Obstructive sleep apnea (adult) (pediatric); E11.9 Type 2 diabetes mellitus without complications; E78.5 Hyperlipidemia, unspecified; N40.0 Benign prostatic hyperplasia without lower urinary tract symptoms; K21.9 Gastro-esophageal reflux disease without esophagitis; M10.9 Gout, unspecified; Z88.8 Allergy status to other drugs, medicaments and biological substances
CPT/HCPCS: 36415; 82140; 82652; 82962; 83735; 85610

== ENCOUNTER 2024-06-03 09:35 | Inpatient (IN) | payer OTHER ==
[2024-06-03 10:17] VITALS: BMI 40.4
[2024-06-03] MEDS ORDERED: MAG HYDROX/AL HYDROX/SIMETH 30 ML UNIT-DOSE CUP PO PRN (11:09)
[2024-06-03] MEDS ORDERED: ONDANSETRON *ODT* 4 MG TABLET SL PRN (11:09)
[2024-06-03] MEDS ORDERED: POLYETHYLENE GLYCOL (HEALTHYLAX) 3350 17 GM PACKET PO PRN (11:09)
[2024-06-03] MEDS ORDERED: NALOXONE (NARCAN) HCL 4 MG/0.1 ML SPRAY NS PRN (11:09)
[2024-06-03] MEDS ORDERED: NALOXONE HCL 0.4 MG/ML VIAL IM PRN (11:09)
[2024-06-03] MEDS ORDERED: MAGNESIUM HYDROX 2400MG/30ML ORAL SUSPENSION 30 ML CUP PO PRN (11:09)
[2024-06-03] MEDS ORDERED: guaiFENesin 600 MG TABLET.ER (FP) PO PRN (11:09)
[2024-06-03] MEDS ORDERED: IBUPROFEN 400 MG TABLET (FP) PO PRN (11:09)
[2024-06-03] MEDS ORDERED: hydrOXYzine PAMOATE 25 MG CAPSULE (FP) PO PRN (11:09)
[2024-06-03] MEDS ORDERED: BISMUTH SUBSALICYLATE 524 MG/30 ML PO PRN (11:09)
[2024-06-03] MEDS ORDERED: DICYCLOMINE HCL 10 MG CAPSULE PO PRN (11:09)
[2024-06-03] MEDS ORDERED: LOPERAMIDE HCL 2 MG CAPSULE PO PRN (11:09)
[2024-06-03] MEDS ORDERED: BENZONATATE 200 MG CAPSULE PO PRN (11:09)
[2024-06-03] MEDS ORDERED: BENZOCAINE/MENTHOL (CHLORASEPTIC ) LOZENGE MM PRN (11:09)
[2024-06-03] MEDS ORDERED: diazePAM 5 MG TABLET PO PRN (11:12)
[2024-06-03] MEDS: ASPIRIN 81 MG CHEWABLE TABLETS PO SCH (13:00)
[2024-06-03] MEDS: amLODIPine BESYLATE 2.5 MG TABLET (FP) PO SCH (13:01)
[2024-06-03] MEDS: TAMSULOSIN HCL 0.4 MG CAP PO SCH ×2 (13:26→13:56)
[2024-06-03] MEDS: ACAMPROSATE CALCIUM 333 MG TABLET.DR PO SCH (13:26)
[2024-06-03] MEDS: COLCHICINE 0.6 MG TAB PO SCH ×2 (13:55→15:03)
[2024-06-03] MEDS: ALLOPURINOL 100 MG TABLET (FP) PO SCH ×2 (13:56→15:04)
[2024-06-03] MEDS: metFORMIN HCL 500 MG TABLET (FP) PO SCH (17:20)
[2024-06-03] MEDS: IBUPROFEN 600 MG TABLET (FP) PO PRN (17:41)
[2024-06-03] MEDS: diazePAM 5 MG TABLET PO SCH (17:41)
[2024-06-03] MEDS ORDERED: QUEtiapine FUMARATE 100 MG TABLET (FP) PO SCH (22:00)
[2024-06-03] MEDS: THIAMINE 100 MG TABLET PO SCH (22:23)
[2024-06-03] MEDS: MELATONIN 5 MG TABLETS PO SCH (22:23)
[2024-06-03] MEDS: QUEtiapine FUMARATE 200 MG TABLET PO SCH (22:24)
[2024-06-03] MEDS: ATORVASTATIN CA 80 MG TABLET (FP) PO SCH (22:24)
[2024-06-03] MEDS: METHOCARBAMOL 500 MG TABLET PO PRN (22:25)
[2024-06-04] MEDS ORDERED: TAMSULOSIN HCL 0.4 MG CAP PO SCH (08:30)
[2024-06-04] MEDS: PRENATAL VITAMINS W/ FOLIC ACID TABLET (FP) PO SCH (10:07)
[2024-06-04] MEDS: SERTRALINE HCL 50 MG TABLET (FP) PO SCH (10:08)
[2024-06-04] MEDS: QUEtiapine FUMARATE 100 MG TABLET (FP) PO SCH (10:09)
[2024-06-04 14:39] LABS: HEMATOCRIT 33.9 % (35.4-49); HEMOGLOBIN 11.1 GM/dL (11.7-16.9); MCH 29.3 pg (25.7-33.7); MCHC 32.7 g/dl (32.0-35.9); MEAN CELL VOLUME 89.6 fl (80-96); MEAN PLT VOLUME 10.6 fl (7.5-11.1); PLATELET COUNT 128 10^3/uL (134-434); RBC 3.78 M/mm3 (4.00-5.60); RDW 14.8 % (11.9-15.9); WHITE BLOOD COUNT 3.8 K/mm3 (4.0-10.0)
[2024-06-04 14:42] LABS: POTASSIUM 4.2 mmol/L (3.5-5.1)
[2024-06-04 14:56] LABS: CALCIUM 8.9 mg/dL (8.5-10.1)
[2024-06-04 14:57] LABS: BLOOD UREA NITROGEN 13.8 mg/dL (7-18)
[2024-06-04 15:00] LABS: CREATININE 0.9 mg/dL (0.55-1.3)
[2024-06-04 15:01] LABS: BILIRUBIN,TOTAL 0.2 mg/dL (0.2-1)
[2024-06-04] MEDS: ACETAMINOPHEN 325 MG TABLET (FP) PO PRN (16:25)
[2024-06-05] MEDS: diazePAM 5 MG TABLET PO SCH (05:57)
[2024-06-06] MEDS: diazePAM 5 MG TABLET PO SCH (05:42)
[2024-06-07] MEDS: diazePAM 5 MG TABLET PO ONE (05:47)
[2024-06-07 06:08] VITALS: TEMP 97.8
[2024-06-07 08:47] VITALS: BP 160/102; PULSE 97; RESP 18
== END 2024-06-07 09:18 | disposition other institution (70) | DRG 775 ==
LOC: YASAS 09:35 → Y3N 12:10
PROVIDERS: ADMIT Allergy & Immunology; ATTEND Surgery
PROC: HZ2ZZZZ Detoxification Services for Substance Abuse Treatment (ICD-10-PCS; principal; 2024-06-03)
DX: F10.230 Alcohol dependence with withdrawal, uncomplicated (principal); F17.210 Nicotine dependence, cigarettes, uncomplicated; F10.982 Alcohol use, unspecified with alcohol-induced sleep disorder; F25.1 Schizoaffective disorder, depressive type; I10 Essential (primary) hypertension; E11.39 Type 2 diabetes mellitus with other diabetic ophthalmic complication; Z79.84 Long term (current) use of oral hypoglycemic drugs; M1A.0790 Idiopathic chronic gout, unspecified ankle and foot, without tophus (tophi); M15.9 Polyosteoarthritis, unspecified; G47.33 Obstructive sleep apnea (adult) (pediatric); N40.0 Benign prostatic hyperplasia without lower urinary tract symptoms; Z87.11 Personal history of peptic ulcer disease; Z88.7 Allergy status to serum and vaccine
CPT/HCPCS: 36415; 80053; 80305; 80307; 82962; 85027; 86780; 93005; 93010

== ENCOUNTER 2024-07-22 22:26 | Inpatient (IN) | payer OTHER ==
[2024-07-22 22:52] VITALS: BMI 40.4
[2024-07-22] MEDS ORDERED: chlordiazePOXIDE HCL 25 MG CAPSULE PO PRN (23:01)
[2024-07-22] MEDS ORDERED: BISMUTH SUBSALICYLATE 524 MG/30 ML PO PRN (23:08)
[2024-07-22] MEDS ORDERED: IBUPROFEN 400 MG TABLET (FP) PO PRN (23:08)
[2024-07-22] MEDS ORDERED: MAGNESIUM HYDROX 2400MG/30ML ORAL SUSPENSION 30 ML CUP PO PRN (23:08)
[2024-07-22] MEDS ORDERED: BENZONATATE 200 MG CAPSULE PO PRN (23:08)
[2024-07-22] MEDS ORDERED: guaiFENesin 600 MG TABLET.ER (FP) PO PRN (23:08)
[2024-07-22] MEDS ORDERED: MAG HYDROX/AL HYDROX/SIMETH 30 ML UNIT-DOSE CUP PO PRN (23:08)
[2024-07-22] MEDS ORDERED: ONDANSETRON *ODT* 4 MG TABLET SL PRN (23:08)
[2024-07-22] MEDS ORDERED: ACETAMINOPHEN 325 MG TABLET (FP) PO PRN (23:08)
[2024-07-22] MEDS ORDERED: NICOTINE POLACRILEX 2 MG LOZENGE BC PRN (23:08)
[2024-07-22] MEDS ORDERED: BENZOCAINE/MENTHOL (CHLORASEPTIC ) LOZENGE MM PRN (23:08)
[2024-07-22] MEDS ORDERED: DICYCLOMINE HCL 10 MG CAPSULE PO PRN (23:08)
[2024-07-22] MEDS ORDERED: POLYETHYLENE GLYCOL (HEALTHYLAX) 3350 17 GM PACKET PO PRN (23:08)
[2024-07-22] MEDS ORDERED: NICOTINE POLACRILEX 2 MG GUM BUC PRN (23:08)
[2024-07-22] MEDS ORDERED: LOPERAMIDE HCL 2 MG CAPSULE PO PRN (23:08)
[2024-07-22] MEDS ORDERED: chlordiazePOXIDE HCL 25 MG CAPSULE ONE (23:11)
[2024-07-22] MEDS ORDERED: METOPROLOL TARTRATE 25 MG TABLET (FP) ONE (23:12)
[2024-07-22] MEDS: chlordiazePOXIDE HCL 25 MG CAPSULE PO SCH (23:26)
[2024-07-22] MEDS: METOPROLOL TARTRATE 25 MG TABLET (FP) PO ONE (23:26)
[2024-07-23] MEDS ORDERED: INSULIN ASPART SLIDING SCALE (NOVOLOG) 1 VIAL SQ ONE (07:27)
[2024-07-23] MEDS: TAMSULOSIN HCL 0.4 MG CAP PO SCH (07:34)
[2024-07-23] MEDS: PANTOPRAZOLE 40 MG TABLET PO SCH (07:34)
[2024-07-23] MEDS: metFORMIN HCL 500 MG TABLET (FP) PO SCH (07:34)
[2024-07-23] MEDS: ALLOPURINOL 100 MG TABLET (FP) PO SCH (09:53)
[2024-07-23] MEDS: PRENATAL VITAMINS W/ FOLIC ACID TABLET (FP) PO SCH (09:53)
[2024-07-23] MEDS: amLODIPine BESYLATE 2.5 MG TABLET (FP) PO SCH (09:53)
[2024-07-23] MEDS: ASPIRIN 81 MG CHEWABLE TABLETS PO SCH (09:53)
[2024-07-23] MEDS: IBUPROFEN 600 MG TABLET (FP) PO PRN (09:55)
[2024-07-23 13:21] LABS: HEMATOCRIT 36.6 % (35.4-49); HEMOGLOBIN 12.5 GM/dL (11.7-16.9); MCH 30.3 pg (25.7-33.7); MCHC 34.2 g/dl (32.0-35.9); MEAN CELL VOLUME 88.5 fl (80-96); MEAN PLT VOLUME 10.6 fl (7.5-11.1); PLATELET COUNT 136 10^3/uL (134-434); RBC 4.14 M/mm3 (4.00-5.60); WHITE BLOOD COUNT 3.9 K/mm3 (4.0-10.0)
[2024-07-23 13:47] LABS: POTASSIUM 3.8 mmol/L (3.5-5.1)
[2024-07-23 13:54] LABS: CALCIUM 9.3 mg/dL (8.5-10.1)
[2024-07-23 13:55] LABS: ALBUMIN 3.2 g/dl (3.4-5.0)
[2024-07-23 13:57] LABS: URIC ACID 9.7 mg/dL (2.6-7.2)
[2024-07-23 13:58] LABS: CREATININE 1.1 mg/dL (0.55-1.3)
[2024-07-23 14:00] LABS: TOT PROT 6.7 g/dl (6.4-8.2)
[2024-07-23 14:01] LABS: BILIRUBIN,TOTAL 0.2 mg/dL (0.2-1)
[2024-07-23] MEDS ORDERED: QUEtiapine FUMARATE 100 MG TABLET (FP) ONE (21:33)
[2024-07-23] MEDS: MELATONIN 5 MG TABLETS PO SCH (22:52)
[2024-07-23] MEDS: THIAMINE 100 MG TABLET PO SCH (22:53)
[2024-07-23] MEDS: ATORVASTATIN CA 80 MG TABLET (FP) PO SCH (22:55)
[2024-07-23] MEDS: QUEtiapine FUMARATE 300 MG TABLET PO SCH (22:55)
[2024-07-23] MEDS: QUEtiapine FUMARATE 100 MG TABLET (FP) PO SCH (23:03)
[2024-07-24] MEDS: chlordiazePOXIDE HCL 25 MG CAPSULE PO SCH (06:00)
[2024-07-24] MEDS ORDERED: QUEtiapine FUMARATE 100 MG TABLET (FP) PO SCH (10:00)
[2024-07-24] MEDS: SERTRALINE HCL 50 MG TABLET (FP) PO SCH (10:24)
[2024-07-24] MEDS: METHOCARBAMOL 500 MG TABLET PO PRN (22:36)
[2024-07-25] MEDS ORDERED: chlordiazePOXIDE HCL 10 MG CAPSULE PO PRN
[2024-07-25] MEDS: chlordiazePOXIDE HCL 10 MG CAPSULE PO SCH (05:35)
[2024-07-26] MEDS: chlordiazePOXIDE HCL 10 MG CAPSULE PO SCH (06:00)
[2024-07-27] MEDS: chlordiazePOXIDE HCL 10 MG CAPSULE PO ONE (05:40)
[2024-07-27 09:10] VITALS: BP 142/77; PULSE 90; RESP 18; TEMP 97.5
== END 2024-07-27 12:24 | disposition other institution (70) | DRG 775 ==
LOC: YASAS 22:26 → Y3N 23:30
PROVIDERS: ADMIT Allergy & Immunology; ATTEND Surgery
PROC: HZ2ZZZZ Detoxification Services for Substance Abuse Treatment (ICD-10-PCS; principal; 2024-07-22)
DX: F10.230 Alcohol dependence with withdrawal, uncomplicated (principal); F17.210 Nicotine dependence, cigarettes, uncomplicated; F25.9 Schizoaffective disorder, unspecified; G47.33 Obstructive sleep apnea (adult) (pediatric); I10 Essential (primary) hypertension; E78.5 Hyperlipidemia, unspecified; E11.9 Type 2 diabetes mellitus without complications; Z79.84 Long term (current) use of oral hypoglycemic drugs; M10.9 Gout, unspecified; N40.0 Benign prostatic hyperplasia without lower urinary tract symptoms; Z88.7 Allergy status to serum and vaccine
CPT/HCPCS: 36415; 80053; 80305; 80307; 82962; 84550; 85027; 87811

== ENCOUNTER 2024-07-27 12:21 | Inpatient (IN) | payer OTHER ==
[2024-07-27] MEDS ORDERED: ACETAMINOPHEN 325 MG TABLET (FP) PO PRN (13:21)
[2024-07-27] MEDS ORDERED: MAGNESIUM HYDROX 2400MG/30ML ORAL SUSPENSION 30 ML CUP PO PRN (13:21)
[2024-07-27] MEDS ORDERED: NALOXONE (NARCAN) HCL 4 MG/0.1 ML SPRAY NS PRN (13:21)
[2024-07-27] MEDS ORDERED: guaiFENesin 600 MG TABLET.ER (FP) PO PRN (13:21)
[2024-07-27] MEDS ORDERED: BENZONATATE 200 MG CAPSULE PO PRN (13:21)
[2024-07-27] MEDS ORDERED: MAG HYDROX/AL HYDROX/SIMETH 30 ML UNIT-DOSE CUP PO PRN (13:21)
[2024-07-27] MEDS ORDERED: IBUPROFEN 400 MG TABLET (FP) PO PRN (13:21)
[2024-07-27] MEDS ORDERED: NALOXONE HCL 0.4 MG/ML VIAL IVPUSH PRN (13:21)
[2024-07-27] MEDS ORDERED: POLYETHYLENE GLYCOL (HEALTHYLAX) 3350 17 GM PACKET PO PRN (13:21)
[2024-07-27] MEDS ORDERED: LOPERAMIDE HCL 2 MG CAPSULE PO PRN (13:21)
[2024-07-27] MEDS: metFORMIN HCL 500 MG TABLET (FP) PO SCH (16:53)
[2024-07-27] MEDS ORDERED: QUEtiapine FUMARATE 100 MG TABLET (FP) ONE (22:18)
[2024-07-27] MEDS: METHOCARBAMOL 500 MG TABLET PO PRN (22:19)
[2024-07-27] MEDS: ATORVASTATIN CA 80 MG TABLET (FP) PO SCH (22:19)
[2024-07-27] MEDS: QUEtiapine FUMARATE 300 MG TABLET PO SCH (22:20)
[2024-07-27] MEDS: THIAMINE 100 MG TABLET PO SCH (22:20)
[2024-07-27] MEDS: ALLOPURINOL 100 MG TABLET (FP) PO SCH (22:20)
[2024-07-27] MEDS: MELATONIN 5 MG TABLETS PO SCH (22:20)
[2024-07-27] MEDS: IBUPROFEN 600 MG TABLET (FP) PO PRN (22:20)
[2024-07-28] MEDS: SERTRALINE HCL 50 MG TABLET (FP) PO SCH (09:48)
[2024-07-28] MEDS: TAMSULOSIN HCL 0.4 MG CAP PO SCH (09:48)
[2024-07-28] MEDS: PANTOPRAZOLE 40 MG TABLET PO SCH (09:48)
[2024-07-28] MEDS: ASPIRIN 81 MG CHEWABLE TABLETS PO SCH (09:48)
[2024-07-28] MEDS: amLODIPine BESYLATE 2.5 MG TABLET (FP) PO SCH (09:48)
[2024-07-28] MEDS: PRENATAL VITAMINS W/ FOLIC ACID TABLET (FP) PO SCH (09:48)
[2024-07-28] MEDS: NICOTINE 21 MG/24 HOURS TOPICAL PATCH TD SCH (09:48)
[2024-07-28] MEDS ORDERED: ARTIFICIAL TEARS OPHTHALMIC DROPS OU PRN (15:39)
[2024-07-28] MEDS ORDERED: QUEtiapine FUMARATE 100 MG TABLET (FP) ONE (19:36)
[2024-07-29] MEDS: QUEtiapine FUMARATE 100 MG TABLET (FP) PO SCH (09:54)
[2024-07-29] MEDS ORDERED: QUEtiapine FUMARATE 100 MG TABLET (FP) ONE (20:31)
[2024-07-30] MEDS ORDERED: NICOTINE 21 MG/24 HOURS TOPICAL PATCH TD PRN (08:16)
[2024-07-30] MEDS ORDERED: NALTREXONE HCL 50 MG TABLET PO SCH (16:00)
[2024-07-30] MEDS: NALTREXONE HCL 50 MG TABLET PO ONE (17:36)
[2024-07-31] MEDS: NALTREXONE HCL 50 MG TABLET PO SCH (09:57)
[2024-07-31] MEDS ORDERED: QUEtiapine FUMARATE 100 MG TABLET (FP) ONE (21:23)
[2024-08-01] MEDS ORDERED: QUEtiapine FUMARATE 100 MG TABLET (FP) ONE (21:46)
[2024-08-02] MEDS ORDERED: QUEtiapine FUMARATE 100 MG TABLET (FP) ONE (19:34)
[2024-08-03] MEDS: amLODIPine BESYLATE 5 MG TABLET (FP) PO SCH (10:34)
[2024-08-03] MEDS: hydrOXYzine PAMOATE 25 MG CAPSULE (FP) PO PRN (10:41)
[2024-08-04] MEDS: BENZOCAINE/MENTHOL (CHLORASEPTIC ) LOZENGE MM PRN (06:28)
[2024-08-04] MEDS ORDERED: QUEtiapine FUMARATE 100 MG TABLET (FP) ONE (19:35)
[2024-08-05] MEDS ORDERED: QUEtiapine FUMARATE 100 MG TABLET (FP) ONE (21:14)
[2024-08-06] MEDS ORDERED: QUEtiapine FUMARATE 100 MG TABLET (FP) ONE (21:07)
[2024-08-07] MEDS ORDERED: QUEtiapine FUMARATE 100 MG TABLET (FP) ONE (19:48)
[2024-08-08 06:40] VITALS: TEMP 97.7
[2024-08-08 09:26] VITALS: BP 139/89; PULSE 87; RESP 18
[2024-08-08] MEDS ORDERED: QUEtiapine FUMARATE 25 MG TABLET ONE (09:39)
[2024-08-08] MEDS: QUEtiapine FUMARATE 50 MG TABLET PO SCH (10:07)
[2024-08-08] MEDS: NALOXONE (NYS OPIOID OVERDOSE PROGRAM) 4 MG/0.1 ML SPRAY NS SCH (12:40)
[2024-08-10] MEDS ORDERED: NALTREXONE MICROSPHERES (VIVITROL) 380 MG DISP.SYRIN IM ONE (10:00)
== END 2024-08-08 12:45 | disposition left against medical advice (07) | DRG 770 ==
LOC: YASAS 12:21 → Y3NR 12:23 → Y3E 07-28 10:12
PROVIDERS: ADMIT Psychiatry & Neurology Pain Medicine; ATTEND Psychiatry & Neurology Pain Medicine
PROC: HZ42ZZZ Group Counseling for Substance Abuse Treatment, Cognitive-Behavioral (ICD-10-PCS; principal; 2024-07-27)
DX: F10.20 Alcohol dependence, uncomplicated (principal); F17.210 Nicotine dependence, cigarettes, uncomplicated; F10.282 Alcohol dependence with alcohol-induced sleep disorder; F25.1 Schizoaffective disorder, depressive type; G47.33 Obstructive sleep apnea (adult) (pediatric); I10 Essential (primary) hypertension; E78.00 Pure hypercholesterolemia, unspecified; E11.9 Type 2 diabetes mellitus without complications; Z79.84 Long term (current) use of oral hypoglycemic drugs; M1A.0790 Idiopathic chronic gout, unspecified ankle and foot, without tophus (tophi); N40.0 Benign prostatic hyperplasia without lower urinary tract symptoms; Z87.11 Personal history of peptic ulcer disease; Z88.7 Allergy status to serum and vaccine
CPT/HCPCS: 82962

== ENCOUNTER 2024-09-02 22:13 | Inpatient (IN) | payer OTHER ==
[2024-09-02 22:48] VITALS: BMI 40.4
[2024-09-02] MEDS ORDERED: chlordiazePOXIDE HCL 25 MG CAPSULE PO PRN (22:57)
[2024-09-02] MEDS ORDERED: guaiFENesin 600 MG TABLET.ER (FP) PO PRN (23:03)
[2024-09-02] MEDS ORDERED: MAG HYDROX/AL HYDROX/SIMETH 30 ML UNIT-DOSE CUP PO PRN (23:03)
[2024-09-02] MEDS ORDERED: POLYETHYLENE GLYCOL (HEALTHYLAX) 3350 17 GM PACKET PO PRN (23:03)
[2024-09-02] MEDS ORDERED: IBUPROFEN 400 MG TABLET (FP) PO PRN (23:03)
[2024-09-02] MEDS ORDERED: NICOTINE POLACRILEX 2 MG LOZENGE BC PRN (23:03)
[2024-09-02] MEDS ORDERED: ACETAMINOPHEN 325 MG TABLET (FP) PO PRN (23:03)
[2024-09-02] MEDS ORDERED: DICYCLOMINE HCL 10 MG CAPSULE PO PRN (23:03)
[2024-09-02] MEDS ORDERED: MAGNESIUM HYDROX 2400MG/30ML ORAL SUSPENSION 30 ML CUP PO PRN (23:03)
[2024-09-02] MEDS ORDERED: NICOTINE POLACRILEX 2 MG GUM BUC PRN (23:03)
[2024-09-02] MEDS ORDERED: LOPERAMIDE HCL 2 MG CAPSULE PO PRN (23:03)
[2024-09-02] MEDS ORDERED: ONDANSETRON *ODT* 4 MG TABLET SL PRN (23:03)
[2024-09-02] MEDS ORDERED: METOPROLOL TARTRATE 25 MG TABLET (FP) ONE (23:15)
[2024-09-02] MEDS ORDERED: chlordiazePOXIDE HCL 25 MG CAPSULE ONE (23:15)
[2024-09-02] MEDS: METOPROLOL TARTRATE 25 MG TABLET (FP) PO ONE (23:25)
[2024-09-02] MEDS: chlordiazePOXIDE HCL 25 MG CAPSULE PO SCH (23:25)
[2024-09-03] MEDS: metFORMIN HCL 500 MG TABLET (FP) PO SCH (06:02)
[2024-09-03] MEDS: PANTOPRAZOLE 40 MG TABLET PO SCH (07:27)
[2024-09-03] MEDS: TAMSULOSIN HCL 0.4 MG CAP PO SCH (09:25)
[2024-09-03] MEDS: PRENATAL VITAMINS W/ FOLIC ACID TABLET (FP) PO SCH (10:18)
[2024-09-03] MEDS: amLODIPine BESYLATE 5 MG TABLET (FP) PO SCH (10:18)
[2024-09-03] MEDS: ALLOPURINOL 100 MG TABLET (FP) PO SCH (10:18)
[2024-09-03] MEDS: ASPIRIN 81 MG CHEWABLE TABLETS PO SCH (10:18)
[2024-09-03 10:46] LABS: POTASSIUM 3.9 mmol/L (3.5-5.1)
[2024-09-03 10:48] LABS: HEMATOCRIT 35.9 % (35.4-49); HEMOGLOBIN 12.2 GM/dL (11.7-16.9); MCH 29.8 pg (25.7-33.7); MCHC 33.9 g/dl (32.0-35.9); MEAN PLT VOLUME 10.5 fl (7.5-11.1); PLATELET COUNT 131 10^3/uL (134-434); RBC 4.08 M/mm3 (4.00-5.60); RDW 15.7 % (11.9-15.9); WHITE BLOOD COUNT 3.8 K/mm3 (4.0-10.0)
[2024-09-03 10:52] LABS: ALBUMIN 3.3 g/dl (3.4-5.0)
[2024-09-03 10:53] LABS: BLOOD UREA NITROGEN 12.8 mg/dL (7-18)
[2024-09-03 10:57] LABS: BILIRUBIN,TOTAL 0.4 mg/dL (0.2-1); TOT PROT 6.4 g/dl (6.4-8.2)
[2024-09-03] MEDS: THIAMINE 100 MG TABLET PO SCH (22:32)
[2024-09-03] MEDS: QUEtiapine FUMARATE 200 MG TABLET PO SCH (22:32)
[2024-09-03] MEDS: MELATONIN 5 MG TABLETS PO SCH (22:32)
[2024-09-03] MEDS: ATORVASTATIN CA 80 MG TABLET (FP) PO SCH (22:32)
[2024-09-03] MEDS: BENZOCAINE/MENTHOL (CHLORASEPTIC ) LOZENGE MM PRN (22:35)
[2024-09-04] MEDS: chlordiazePOXIDE HCL 25 MG CAPSULE PO SCH (06:21)
[2024-09-04] MEDS: QUEtiapine FUMARATE 50 MG TABLET PO SCH (10:51)
[2024-09-04] MEDS: SERTRALINE HCL 50 MG TABLET (FP) PO SCH (10:51)
[2024-09-04] MEDS: BENZONATATE 200 MG CAPSULE PO PRN (10:56)
[2024-09-05] MEDS ORDERED: chlordiazePOXIDE HCL 10 MG CAPSULE PO PRN
[2024-09-05] MEDS: chlordiazePOXIDE HCL 10 MG CAPSULE PO SCH (05:59)
[2024-09-05 13:47] LABS: BASO % 1.1 % (0-2.0); EOS % 6.7 % (0-4.5); HEMATOCRIT 34.2 % (35.4-49); HEMOGLOBIN 11.4 GM/dL (11.7-16.9); MCH 29.8 pg (25.7-33.7); MCHC 33.3 g/dl (32.0-35.9); MEAN CELL VOLUME 89.7 fl (80-96); MEAN PLT VOLUME 10.6 fl (7.5-11.1); MONO % 9.9 % (3.8-10.2); NEUT % 52.3 % (42.8-82.8); PLATELET COUNT 106 10^3/uL (134-434); POTASSIUM 3.6 mmol/L (3.5-5.1); RBC 3.81 M/mm3 (4.00-5.60); RDW 15.8 % (11.9-15.9); WHITE BLOOD COUNT 3.2 K/mm3 (4.0-10.0)
[2024-09-05 13:49] LABS: ALBUMIN 2.9 g/dl (3.4-5.0); BLOOD UREA NITROGEN 10.9 mg/dL (7-18); CALCIUM 8.6 mg/dL (8.5-10.1)
[2024-09-05 13:52] LABS: CREATININE 0.9 mg/dL (0.55-1.3)
[2024-09-05 13:54] LABS: BILIRUBIN,TOTAL 0.3 mg/dL (0.2-1); TOT PROT 5.8 g/dl (6.4-8.2)
[2024-09-05] MEDS: METHOCARBAMOL 500 MG TABLET PO PRN (22:10)
[2024-09-06] MEDS: chlordiazePOXIDE HCL 10 MG CAPSULE PO SCH (05:52)
[2024-09-06] MEDS: hydrOXYzine PAMOATE 25 MG CAPSULE (FP) PO PRN (10:29)
[2024-09-06] MEDS: IBUPROFEN 600 MG TABLET (FP) PO PRN (10:29)
[2024-09-07] MEDS: chlordiazePOXIDE HCL 10 MG CAPSULE PO ONE (05:35)
[2024-09-07] MEDS ORDERED: NALOXONE (NYS OPIOID OVERDOSE PROGRAM) 4 MG/0.1 ML SPRAY NS PRN (08:00)
[2024-09-07 09:10] VITALS: BP 129/82; PULSE 82; RESP 18; TEMP 98
== END 2024-09-07 10:15 | disposition home or self-care (01) | DRG 775 ==
LOC: YASAS 22:13 → Y3N 23:29
PROVIDERS: ADMIT Allergy & Immunology; ATTEND Surgery
PROC: HZ2ZZZZ Detoxification Services for Substance Abuse Treatment (ICD-10-PCS; principal; 2024-09-02)
DX: F10.230 Alcohol dependence with withdrawal, uncomplicated (principal); F17.210 Nicotine dependence, cigarettes, uncomplicated; F25.1 Schizoaffective disorder, depressive type; F10.282 Alcohol dependence with alcohol-induced sleep disorder; E78.5 Hyperlipidemia, unspecified; G47.33 Obstructive sleep apnea (adult) (pediatric); I10 Essential (primary) hypertension; K21.9 Gastro-esophageal reflux disease without esophagitis; M10.9 Gout, unspecified; N40.0 Benign prostatic hyperplasia without lower urinary tract symptoms; E11.9 Type 2 diabetes mellitus without complications; Z79.84 Long term (current) use of oral hypoglycemic drugs; Z87.11 Personal history of peptic ulcer disease; Z88.8 Allergy status to other drugs, medicaments and biological substances; Z88.7 Allergy status to serum and vaccine
CPT/HCPCS: 36415; 80053; 82962; 85025; 85027

== ENCOUNTER 2024-11-11 15:26 | Inpatient (IN) | payer OTHER ==
[2024-11-11 16:37] VITALS: BMI 39.3
[2024-11-11] MEDS ORDERED: chlordiazePOXIDE HCL 25 MG CAPSULE PO PRN (17:02)
[2024-11-11] MEDS ORDERED: guaiFENesin 600 MG TABLET.ER (FP) PO PRN (17:03)
[2024-11-11] MEDS ORDERED: LOPERAMIDE HCL 2 MG CAPSULE PO PRN (17:03)
[2024-11-11] MEDS ORDERED: BENZOCAINE/MENTHOL (CHLORASEPTIC ) LOZENGE MM PRN (17:03)
[2024-11-11] MEDS ORDERED: MAGNESIUM HYDROX 2400MG/30ML ORAL SUSPENSION 30 ML CUP PO PRN (17:03)
[2024-11-11] MEDS ORDERED: ONDANSETRON *ODT* 4 MG TABLET SL PRN (17:03)
[2024-11-11] MEDS ORDERED: NALOXONE (NARCAN) HCL 4 MG/0.1 ML SPRAY NS PRN (17:03)
[2024-11-11] MEDS ORDERED: DICYCLOMINE HCL 10 MG CAPSULE PO PRN (17:03)
[2024-11-11] MEDS ORDERED: POLYETHYLENE GLYCOL (HEALTHYLAX) 3350 17 GM PACKET PO PRN (17:03)
[2024-11-11] MEDS ORDERED: MAG HYDROX/AL HYDROX/SIMETH 30 ML UNIT-DOSE CUP PO PRN (17:03)
[2024-11-11] MEDS ORDERED: P-EPHED 60MG/TRIPROLIDI 2.5MG TABLET PO PRN (17:03)
[2024-11-11] MEDS ORDERED: BENZONATATE 200 MG CAPSULE PO PRN (17:03)
[2024-11-11] MEDS ORDERED: ACETAMINOPHEN 325 MG TABLET (FP) PO PRN (17:03)
[2024-11-11] MEDS ORDERED: BISMUTH SUBSALICYLATE 524 MG/30 ML PO PRN (17:03)
[2024-11-11] MEDS ORDERED: chlordiazePOXIDE HCL 25 MG CAPSULE ONE (18:12)
[2024-11-11] MEDS: chlordiazePOXIDE HCL 25 MG CAPSULE PO SCH (18:13)
[2024-11-11] MEDS: THIAMINE 100 MG TABLET PO SCH (23:15)
[2024-11-11] MEDS: ALLOPURINOL 100 MG TABLET (FP) PO SCH (23:15)
[2024-11-11] MEDS: ATORVASTATIN CA 80 MG TABLET (FP) PO SCH (23:16)
[2024-11-11] MEDS: IBUPROFEN 400 MG TABLET (FP) PO PRN (23:16)
[2024-11-11] MEDS: MELATONIN 5 MG TABLETS PO SCH (23:16)
[2024-11-11] MEDS: TAMSULOSIN HCL 0.4 MG CAP PO SCH (23:17)
[2024-11-12] MEDS: metFORMIN HCL 500 MG TABLET (FP) PO SCH (06:00)
[2024-11-12] MEDS: amLODIPine BESYLATE 5 MG TABLET (FP) PO SCH (10:50)
[2024-11-12] MEDS: ASPIRIN 81 MG CHEWABLE TABLETS PO SCH (10:50)
[2024-11-12] MEDS: PANTOPRAZOLE 40 MG TABLET PO SCH (10:50)
[2024-11-12] MEDS: PRENATAL VITAMINS W/ FOLIC ACID TABLET (FP) PO SCH (10:50)
[2024-11-12] MEDS: SERTRALINE HCL 50 MG TABLET (FP) PO SCH (11:24)
[2024-11-12 11:43] LABS: HEMATOCRIT 40.6 % (35.4-49); MCH 29.5 pg (25.7-33.7); MCHC 32.1 g/dl (32.0-35.9); MEAN CELL VOLUME 91.9 fl (80-96); MEAN PLT VOLUME 11.1 fl (7.5-11.1); PLATELET COUNT 134 10^3/uL (134-434); RBC 4.42 M/mm3 (4.00-5.60); RDW 16.3 % (11.9-15.9); WHITE BLOOD COUNT 5.4 K/mm3 (4.0-10.0)
[2024-11-12 12:12] LABS: POTASSIUM 4.3 mmol/L (3.5-5.1)
[2024-11-12 12:20] LABS: CALCIUM 8.9 mg/dL (8.5-10.1)
[2024-11-12 12:21] LABS: ALBUMIN 3.6 g/dl (3.4-5.0); BLOOD UREA NITROGEN 16.1 mg/dL (7-18)
[2024-11-12 12:24] LABS: CREATININE 1.1 mg/dL (0.55-1.3)
[2024-11-12 12:25] LABS: BILIRUBIN,TOTAL 0.5 mg/dL (0.2-1)
[2024-11-12 12:26] LABS: TOT PROT 7.2 g/dl (6.4-8.2)
[2024-11-12] MEDS ORDERED: COLCHICINE 0.6 MG CAP PO SCH (15:00)
[2024-11-12] MEDS: COLCHICINE 0.6 MG TAB PO SCH (15:40)
[2024-11-12] MEDS: METHOCARBAMOL 500 MG TABLET PO PRN (17:34)
[2024-11-12] MEDS: ARTIFICIAL TEARS OPHTHALMIC DROPS OU SCH (22:21)
[2024-11-12] MEDS: QUEtiapine FUMARATE 300 MG TABLET PO SCH (22:21)
[2024-11-12] MEDS: SODIUM CHLORIDE NASAL SPRAY 44 ML BOTTLE NS SCH (22:22)
[2024-11-13] MEDS: chlordiazePOXIDE HCL 25 MG CAPSULE PO SCH (05:54)
[2024-11-13] MEDS: ACAMPROSATE CALCIUM 333 MG TABLET.DR PO SCH (10:33)
[2024-11-14] MEDS ORDERED: chlordiazePOXIDE HCL 10 MG CAPSULE PO PRN
[2024-11-14] MEDS: chlordiazePOXIDE HCL 10 MG CAPSULE PO SCH (05:55)
[2024-11-14] MEDS: IBUPROFEN 400 MG TABLET (FP) PO PRN (10:24)
[2024-11-15] MEDS: chlordiazePOXIDE HCL 10 MG CAPSULE PO SCH (05:55)
[2024-11-15] MEDS: QUEtiapine FUMARATE 100 MG TABLET (FP) PO SCH (12:36)
[2024-11-15 13:05] VITALS: TEMP 97.7
[2024-11-15 18:17] VITALS: BP 133/86; PULSE 83; RESP 18
[2024-11-16] MEDS ORDERED: chlordiazePOXIDE HCL 10 MG CAPSULE PO ONE (05:00)
== END 2024-11-15 06:35 | disposition home or self-care (01) | DRG 775 ==
LOC: YASAS 15:26 → Y6N 18:19
PROVIDERS: ADMIT Allergy & Immunology; ATTEND Family Medicine Addiction Medicine
PROC: HZ2ZZZZ Detoxification Services for Substance Abuse Treatment (ICD-10-PCS; principal; 2024-11-11)
DX: F10.230 Alcohol dependence with withdrawal, uncomplicated (principal); F25.1 Schizoaffective disorder, depressive type; G47.33 Obstructive sleep apnea (adult) (pediatric); I10 Essential (primary) hypertension; K21.9 Gastro-esophageal reflux disease without esophagitis; H04.123 Dry eye syndrome of bilateral lacrimal glands; M10.9 Gout, unspecified; E11.9 Type 2 diabetes mellitus without complications; N40.0 Benign prostatic hyperplasia without lower urinary tract symptoms; R09.81 Nasal congestion; Z88.7 Allergy status to serum and vaccine; Z79.84 Long term (current) use of oral hypoglycemic drugs
CPT/HCPCS: 36415; 80053; 80305; 80307; 82962; 85027; 86780; 93005; 93010

== ENCOUNTER 2024-12-13 20:10 | Inpatient (IN) | payer OTHER ==
[2024-12-13 20:25] VITALS: BMI 40.7
[2024-12-13] MEDS ORDERED: MAG HYDROX/AL HYDROX/SIMETH 30 ML UNIT-DOSE CUP PO PRN (21:31)
[2024-12-13] MEDS ORDERED: NALOXONE (NARCAN) HCL 4 MG/0.1 ML SPRAY NS PRN (21:31)
[2024-12-13] MEDS ORDERED: BENZONATATE 200 MG CAPSULE PO PRN (21:31)
[2024-12-13] MEDS ORDERED: POLYETHYLENE GLYCOL (HEALTHYLAX) 3350 17 GM PACKET PO PRN (21:31)
[2024-12-13] MEDS ORDERED: BENZOCAINE/MENTHOL (CHLORASEPTIC ) LOZENGE MM PRN (21:31)
[2024-12-13] MEDS ORDERED: LOPERAMIDE HCL 2 MG CAPSULE PO PRN (21:31)
[2024-12-13] MEDS ORDERED: DICYCLOMINE HCL 10 MG CAPSULE PO PRN (21:31)
[2024-12-13] MEDS ORDERED: MAGNESIUM HYDROX 2400MG/30ML ORAL SUSPENSION 30 ML CUP PO PRN (21:31)
[2024-12-13] MEDS ORDERED: BISMUTH SUBSALICYLATE 524 MG/30 ML PO PRN (21:31)
[2024-12-13] MEDS ORDERED: ONDANSETRON *ODT* 4 MG TABLET SL PRN (21:31)
[2024-12-13] MEDS ORDERED: NICOTINE POLACRILEX 2 MG GUM BUC PRN (21:31)
[2024-12-13] MEDS ORDERED: IBUPROFEN 400 MG TABLET (FP) PO PRN (21:31)
[2024-12-13] MEDS ORDERED: hydrOXYzine PAMOATE 25 MG CAPSULE (FP) PO PRN (21:31)
[2024-12-13] MEDS ORDERED: guaiFENesin 600 MG TABLET.ER (FP) PO PRN (21:31)
[2024-12-13] MEDS ORDERED: MELATONIN 5 MG TABLETS ONE (22:38)
[2024-12-13] MEDS: MELATONIN 5 MG TABLETS PO SCH (22:48)
[2024-12-13] MEDS: THIAMINE 100 MG TABLET PO SCH (22:48)
[2024-12-13] MEDS: cloNIDine HCL 0.1 MG TABLET PO ONE (23:18)
[2024-12-13] MEDS: IBUPROFEN 600 MG TABLET (FP) PO PRN (23:21)
[2024-12-14 09:34] LABS: CHLORIDE 102 mmol/L (98-107); POTASSIUM 3.7 mmol/L (3.5-5.1); SODIUM 138 mmol/L (136-145)
[2024-12-14 09:35] LABS: HEMATOCRIT 35.3 % (40.1-51.0); HEMOGLOBIN 11.5 g/dL (13.7-17.5); MCHC 32.6 g/dl (32.3-36.5); MEAN CELL VOLUME 91.2 fl (79.0-92.2); MEAN PLT VOLUME 12.9 fl (9.4-12.4); PLATELET COUNT 135 x10^3/uL (163-337); RDW 13.8 % (12.2-16.4)
[2024-12-14 09:44] LABS: ALBUMIN 3.1 g/dl (3.4-5.0); ANION GAP 7 mmol/L (4-13); BLOOD UREA NITROGEN 18.9 mg/dL (7-18); CALCIUM 8.8 mg/dL (8.5-10.1); CO2 29 mmol/L (21-32); GLUCOSE,RANDOM 232 mg/dL (74-106)
[2024-12-14 09:46] LABS: SGOT/AST 38 U/L (15-37); SGPT/ALT 39 U/L (13-61)
[2024-12-14 09:48] LABS: BILIRUBIN,TOTAL 0.3 mg/dL (0.2-1); TOT PROT 6.2 g/dl (6.4-8.2)
[2024-12-14 09:49] LABS: ALK PHOS 83 U/L (45-117)
[2024-12-14] MEDS ORDERED: QUEtiapine FUMARATE 100 MG TABLET (FP) PO SCH (10:00)
[2024-12-14] MEDS: PRENATAL VITAMINS W/ FOLIC ACID TABLET (FP) PO SCH (10:00)
[2024-12-14] MEDS: NICOTINE 14 MG/24 HOURS TOPICAL PATCH TD SCH (10:00)
[2024-12-14] MEDS: SERTRALINE HCL 50 MG TABLET (FP) PO SCH (10:01)
[2024-12-14] MEDS: ALLOPURINOL 100 MG TABLET (FP) PO SCH (11:49)
[2024-12-14] MEDS: PANTOPRAZOLE 40 MG TABLET PO SCH (11:49)
[2024-12-14] MEDS: ASPIRIN 81 MG CHEWABLE TABLETS PO SCH (11:49)
[2024-12-14] MEDS: amLODIPine BESYLATE 5 MG TABLET (FP) PO SCH (11:50)
[2024-12-14] MEDS: ARTIFICIAL TEARS OPHTHALMIC DROPS OU SCH (14:13)
[2024-12-14] MEDS: metFORMIN HCL 500 MG TABLET (FP) PO SCH (16:29)
[2024-12-14] MEDS: BENZOCAINE 20 % GEL TUBE MM PRN (16:30)
[2024-12-14] MEDS: ACETAMINOPHEN 325 MG TABLET (FP) PO PRN (20:31)
[2024-12-14] MEDS: METHOCARBAMOL 500 MG TABLET PO PRN (20:32)
[2024-12-14] MEDS: QUEtiapine FUMARATE 300 MG TABLET PO SCH (21:17)
[2024-12-14] MEDS: TAMSULOSIN HCL 0.4 MG CAP PO SCH (21:17)
[2024-12-14] MEDS: ATORVASTATIN CA 80 MG TABLET (FP) PO SCH (21:17)
[2024-12-14] MEDS ORDERED: QUEtiapine FUMARATE 200 MG TABLET PO SCH (22:00)
[2024-12-15 09:13] VITALS: BP 125/81; PULSE 90; RESP 18; TEMP 97.8
== END 2024-12-15 12:30 | disposition home or self-care (01) | DRG 775 ==
LOC: YASAS 20:10 → Y3N 21:55
PROVIDERS: ADMIT Allergy & Immunology; ATTEND Allergy & Immunology
PROC: HZ2ZZZZ Detoxification Services for Substance Abuse Treatment (ICD-10-PCS; principal; 2024-12-13)
DX: F10.230 Alcohol dependence with withdrawal, uncomplicated (principal); F17.210 Nicotine dependence, cigarettes, uncomplicated; F20.9 Schizophrenia, unspecified; E78.00 Pure hypercholesterolemia, unspecified; G47.30 Sleep apnea, unspecified; G47.00 Insomnia, unspecified; I10 Essential (primary) hypertension; K21.9 Gastro-esophageal reflux disease without esophagitis; M15.0 Primary generalized (osteo)arthritis; Z88.7 Allergy status to serum and vaccine
CPT/HCPCS: 36415; 80053; 80305; 80307; 82962; 85027; 86780; 93005; 93010

== ENCOUNTER 2025-02-24 12:22 | Inpatient (IN) | payer OTHER ==
[2025-02-24] MEDS ORDERED: MAGNESIUM HYDROX 2400MG/30ML ORAL SUSPENSION 30 ML CUP PO PRN (14:48)
[2025-02-24] MEDS ORDERED: guaiFENesin 600 MG TABLET.ER (FP) PO PRN (14:48)
[2025-02-24] MEDS ORDERED: NICOTINE POLACRILEX 2 MG GUM BUC PRN (14:48)
[2025-02-24] MEDS ORDERED: BENZONATATE 200 MG CAPSULE PO PRN (14:48)
[2025-02-24] MEDS ORDERED: METHOCARBAMOL 500 MG TABLET PO PRN (14:48)
[2025-02-24] MEDS ORDERED: BENZOCAINE/MENTHOL (CHLORASEPTIC ) LOZENGE MM PRN (14:48)
[2025-02-24] MEDS ORDERED: hydrOXYzine PAMOATE 25 MG CAPSULE (FP) PO PRN (14:48)
[2025-02-24] MEDS ORDERED: LOPERAMIDE HCL 2 MG CAPSULE PO PRN (14:48)
[2025-02-24] MEDS ORDERED: ACETAMINOPHEN 325 MG TABLET (FP) PO PRN (14:48)
[2025-02-24] MEDS ORDERED: POLYETHYLENE GLYCOL (HEALTHYLAX) 3350 17 GM PACKET PO PRN (14:48)
[2025-02-24] MEDS ORDERED: IBUPROFEN 400 MG TABLET (FP) PO PRN (14:48)
[2025-02-24] MEDS ORDERED: MAG HYDROX/AL HYDROX/SIMETH 30 ML UNIT-DOSE CUP PO PRN (14:48)
[2025-02-24] MEDS: metFORMIN HCL 500 MG TABLET (FP) PO SCH (17:44)
[2025-02-24] MEDS ORDERED: ACAMPROSATE CALCIUM 333 MG TABLET.DR PO SCH (22:00)
[2025-02-24] MEDS: THIAMINE 100 MG TABLET PO SCH (22:34)
[2025-02-24] MEDS: QUEtiapine FUMARATE 400 MG TABLET PO SCH (22:34)
[2025-02-24] MEDS: ACAMPROSATE CALCIUM 333 MG TABLET.DR PO SCH (22:34)
[2025-02-24] MEDS: TAMSULOSIN HCL 0.4 MG CAP PO SCH (22:34)
[2025-02-24] MEDS: MELATONIN 5 MG TABLETS PO SCH (22:34)
[2025-02-24] MEDS: ATORVASTATIN CA 80 MG TABLET (FP) PO SCH (22:34)
[2025-02-25] MEDS: PRENATAL VITAMINS W/ FOLIC ACID TABLET (FP) PO SCH (06:23)
[2025-02-25] MEDS: ASPIRIN 81 MG CHEWABLE TABLETS PO SCH (10:44)
[2025-02-25] MEDS: SERTRALINE HCL 50 MG TABLET (FP) PO SCH (10:44)
[2025-02-25] MEDS: PANTOPRAZOLE 40 MG TABLET PO SCH (10:44)
[2025-02-25] MEDS: ALLOPURINOL 100 MG TABLET (FP) PO SCH (11:20)
[2025-02-25] MEDS ORDERED: ATORVASTATIN CA 40 MG TABLET (FP) ONE (19:32)
[2025-02-26] MEDS ORDERED: ATORVASTATIN CA 40 MG TABLET (FP) ONE (19:59)
[2025-02-26] MEDS: IBUPROFEN 600 MG TABLET (FP) PO PRN (21:48)
[2025-02-27] MEDS: LIDOCAINE 5% TOPICAL PATCH TP SCH (17:15)
[2025-02-27] MEDS: COLCHICINE 0.6 MG TAB PO SCH (17:17)
[2025-02-27] MEDS ORDERED: ATORVASTATIN CA 40 MG TABLET (FP) ONE (20:34)
[2025-02-27] MEDS: ACAMPROSATE CALCIUM 333 MG TABLET.DR PO SCH (22:44)
[2025-02-27] MEDS: LIDOCAINE PATCH REMOVAL MC SCH (22:44)
[2025-02-28] MEDS: TETRAHYDROZOLINE HCL EYE DROPS OU PRN (06:43)
[2025-02-28] MEDS ORDERED: ATORVASTATIN CA 40 MG TABLET (FP) ONE (19:57)
[2025-03-01] MEDS ORDERED: ATORVASTATIN CA 40 MG TABLET (FP) ONE (20:26)
[2025-03-02] MEDS ORDERED: ATORVASTATIN CA 40 MG TABLET (FP) ONE (20:23)
[2025-03-03] MEDS ORDERED: ATORVASTATIN CA 40 MG TABLET (FP) ONE (20:49)
[2025-03-04] MEDS ORDERED: ATORVASTATIN CA 40 MG TABLET (FP) ONE (20:33)
[2025-03-05] MEDS ORDERED: ATORVASTATIN CA 40 MG TABLET (FP) ONE (19:11)
[2025-03-06] MEDS ORDERED: ATORVASTATIN CA 40 MG TABLET (FP) ONE (20:27)
[2025-03-07] MEDS ORDERED: ATORVASTATIN CA 40 MG TABLET (FP) ONE (19:59)
[2025-03-08] MEDS ORDERED: ATORVASTATIN CA 40 MG TABLET (FP) ONE (19:45)
[2025-03-08 20:56] VITALS: RESP 18
[2025-03-09] MEDS ORDERED: ATORVASTATIN CA 40 MG TABLET (FP) ONE (19:51)
[2025-03-10 07:04] VITALS: TEMP 97.4
[2025-03-10 10:25] VITALS: BP 151/82; PULSE 84
== END 2025-03-10 10:15 | disposition home or self-care (01) | DRG 772 ==
LOC: YASAS 12:22 → Y3NR 12:24 → Y5N 02-25 11:39 → Y3NR 02-25 14:09 → Y5N 02-25 14:13
PROVIDERS: ADMIT Psychiatry & Neurology Pain Medicine; ATTEND Psychiatry & Neurology Pain Medicine
PROC: HZ42ZZZ Group Counseling for Substance Abuse Treatment, Cognitive-Behavioral (ICD-10-PCS; principal; 2025-02-24)
DX: F10.20 Alcohol dependence, uncomplicated (principal); F17.210 Nicotine dependence, cigarettes, uncomplicated; F10.282 Alcohol dependence with alcohol-induced sleep disorder; G47.30 Sleep apnea, unspecified; I10 Essential (primary) hypertension; E78.00 Pure hypercholesterolemia, unspecified; E11.39 Type 2 diabetes mellitus with other diabetic ophthalmic complication; Z79.84 Long term (current) use of oral hypoglycemic drugs; K21.9 Gastro-esophageal reflux disease without esophagitis; M19.90 Unspecified osteoarthritis, unspecified site; M1A.0790 Idiopathic chronic gout, unspecified ankle and foot, without tophus (tophi); Z87.11 Personal history of peptic ulcer disease; Z88.7 Allergy status to serum and vaccine
CPT/HCPCS: 36415; 82962; 84550; 86803